=== PATIENT | female | born 1945 | race Caucasian/White ===

== ENCOUNTER 2019-08-24 14:06 | Outpatient (CLI) | payer MEDICARE, OTHER, SELFPAY ==
[2019-08-24 14:44] LABS: Immunofixation, Serum NR
[2019-08-24 15:18] LABS: Alanine Aminotransferase 7 U/L (0-33); Albumin Level 3.7 g/dL (3.5-5.2); Alkaline Phosphatase 138 IU/L (35-105); Anion Gap 17.7 (5-19); Aspartate Amino Transferase 12 U/L (0-32); Blood Urea Nitrogen 37 mg/dL (8-23); Calcium 9.2 mg/Dl (8.8-10.2); Carbon Dioxide 21 mmol/L (22-29); Chloride 105 mmol/L (98-107); Globulin 3.9 g/dL (1.3-4.6); Glucose 106 mg/dL (74-106); Lactate Dehydrogenase 170 U/L (135-214); Potassium 3.7 mmol/L (3.5-5.1); Sodium 140 mmol/L (136-145); Total Bilirubin 0.3 mg/dL (0.15-1.2); Total Protein 7.6 g/dL (6.6-8.7)
[2019-08-24 15:46] LABS: Basophils # 0.1 10^3/uL (0.0-0.1); Basophils % 0.9 %; Eosinophils # 0.1 10^3/uL (0.0-0.8); Eosinophils % 1.8 %; Hematocrit 33.8 % (37.0-47.0); Hemoglobin 9.3 g/dL (11.5-15.3); Lymphocytes # 0.9 10^3/uL (0.8-4.8); Lymphocytes % 14.1 %; Mean Corpuscular HGB Conc 27.5 g/dL (30.0-36.0); Mean Corpuscular Hemoglobin 25.4 pg (28.0-34.0); Mean Corpuscular Volume 92.3 fL (81-99); Mean Platelet Volume 10.5 fL (7.4-10.4); Monocytes # 0.5 10^3/uL (0.2-0.9); Monocytes % 6.9 %; Neutrophils # 5.1 10^3/uL (1.8-7.7); Neutrophils % 75.9 %; Nucleated Red Blood Cells % 0 %; Platelet Count 236 10^3/cmm (130-400); Red Blood Count 3.66 10^6/uL (4.1-5.3); Red Cell Distribution Width 17.1 % (12.1-15.1); White Blood Count 6.7 10^3/uL (4.0-10.0)
[2019-08-24 17:22] LABS: Erythrocyte Sedimentation Rate 82 mm/hr (0-15)
[2019-08-24 22:40] LABS: Vitamin B12 296 pg/mL (232-1245)
[2019-08-25 15:12] LABS: ALBUMIN 3.2 g/dL (3.8-4.8); ALPHA 1 GLOBULIN 0.5 g/dL (0.2-0.3); BETA 1 GLOBULIN 0.4 g/dL (0.4-0.6); BETA 2 GLOBULIN 0.5 g/dL (0.2-0.5); GAMMA GLOBULIN 1.4 g/dL (0.8-1.7)
--- NOTE | 2019-08-28 17:03 | ONC FU_ITS ---
Dr. Hansen Patient Follow-Up Note Patient: Krystal Andrews Unit #: [id number]: [id number] Dicatated By: Brenden Hansen M.D.Date of Visit:Aug 24, 2019 Onc Med Follow-up/Prog Note Chief Complaint: Anemia. History of Present Illness: This is a 74 year-old woman with moderately severe anemia. She has been chronically anemic, dating back to at least September 2007, at which time her hemoglobin was 10.4 g. In August 2016 she underwent repair of an incarcerated umbilical hernia. With that episode her hemoglobin had dropped to as low as 8.0 g, but she did not require transfusion. The red cell indices were hypochromic/microcytic. It was not further evaluated at the time. Her laboratory studies with Dr. Rincon on 03/12/2018 included CBC showing hemoglobin 9.3 g with hematocrit 32.7%. The red cell indices were in the lower range of normal. White blood cell count was 5800 and platelet count was 224,000. The uncorrected reticulocyte count was 3.51%. The sedimentation rate was moderately elevated at 68 mm/hour. The serum iron studies show transferrin saturation mildly decreased at 17% with ferritin normal at 204 ng/mL. B12 level was in the low-normal range at 300 pg/mL with normal folate at 8.2 ng/mL. I had seen her for a follow-up visit on 03/25/2018. Her hemoglobin was 9.6 g. She significantly elevated sedimentation rate at 83 mm/hour. The transferrin saturation was 11.2%, consistent with iron deficiency. She was given parenteral iron replacement with infusions of Injectafer on 04/15/2018 and 04/22/2018.As of her follow-up visit here on 06/01/2018 her hemoglobin was stable at 9.[address] abdomen/pelvis on 04/14/2018 showed a large left hepatic lobe lesion measuring 14.1 x 13.0 x 14.1 cm. It was unchanged compared to previous study from 2017. During subsequent follow-up she had remained moderately anemic with hemoglobin in the range of 9 g. She has a history of an unprovoked pulmonary embolism back in 2007. She had been chronically anticoagulated with warfarin, and I had originally seen her in May 2015 in regard to recommendations for anticoagulation. Her other medical illnesses include hypertension, hyperlipidemia, peptic ulcer disease/GERD, and degenerative arthritis. She is a nonsmoker. INTERIM HISTORY: On 11/14/2018 she underwent laparoscopic cholecystectomy for acute cholecystitis. The procedure also included liver biopsies. Pathology showed benign, reactive hepatic parenchyma with no evidence of malignant neoplasm. As of 02/08/2019 her hemoglobin had dropped to 8.9 g. The red cell indices were borderline low. The serum iron studies show transferrin saturation 12.1%, consistent with iron deficiency. She was given further parenteral iron replacement with 2 additional infusions of Injectafer. During followup she remained moderately anemic. Her bone marrow aspiration/biopsy on 04/08/2019 showed normal cellular bone marrow for age, estimated at 20 to 40%. There were no overt dyspoietic or megaloblastic changes. Iron stores were adequate to mildly increased. The standard cytogenetic study was normal, and a FISH panel for MDS was unrevealing. She is seen for a follow-up visit. Her ECOG score is 1. She has good appetite. She has no fever or night sweats. She does not complain of shortness of breath, cough, or chest pain. She has no GI or complaints. She has joint pain, mainly in her hands and feet, and she sometimes has numbness/tingling in her feet. She complains that she feels weak and that she has no energy. She is still doing light work at home. Her appetite is variable. She has lost weight. She has no fever or night sweats. She has occasional cough. She does not complain of shortness of breath or chest pain. She reports having nausea at times. She has some constipation, but it is managed adequately with MiraLAX. She has some mild stress incontinence. She complains that she has had a crick in her neck and she says she has a bad disc in her back. She has pain in her left hip which radiates down her left leg, and she has pain in both knees. She also complains that her feet swell. She has no focal neurologic symptoms. Medications: Aspirin 1 Tablet (of 325 mg) Oral daily, dilTIAZem HCl ER 1 Capsule (of 240 mg) Capsule SR 24 HR Oral daily, hydroCHLOROthiazide 1 Tablet (of 25 mg) Oral daily, Levothyroxine Sodium 1 Tablet (of 200 mcg) Oral daily, Lisinopril 1 Tablet (of 40 mg) Oral daily, Lovastatin 1 Tablet (of 20 mg) Oral daily, Metoprolol Succinate ER 1 Tablet (of 100 mg) Tablet SR 24 HR Oral daily, Pantoprazole Sodium 1 Tablet (of 40 mg) Tablet, enteric coated Oral daily Allergies: Penicillin V Potassium Review of Systems: Constitutional - Her energy is pretty good. She does light work at home. Her appetite is pretty good and her weight is down about 10 pounds. No fever, chills, hot flashes, or night sweats. ECOG score is 1, ENMT - No sinus congestion/drainage. No mouth sores. No sore throat or difficulty swallowing, Hematologic/Lymphatic - She bruises easily, Respiratory - No shortness of breath. She has an occasional cough that produces clear phlegm. No pleuritic pain or hemoptysis, Cardiovascular - No angina pain. No palpitations, Gastrointestinal - She has occasional nausea. No vomiting. No heartburn or acid reflux. She sometimes has constipation. No blood in the stool or black stools, Genitourinary (F) - No dysuria or hematuria. No urinary frequency. No urgency. She has urinary leakage at times if she sneezes or coughs, Musculoskeletal - She has pain in her neck, both knees, lower back and hips. She sometimes has pain down her legs if her lower back is hurting, Integumentary - No skin complications, Neurologic - She has a headache today, but she normally does not have any issues with them. No dizziness. No numbness/paresthesias or other focal neurologic symptoms, Psychiatric - No anxiety or depression. No insomnia. Vital Signs: Performed on Aug 24, 2019 15:54 Height - 68.00 in Weight - 264.4 lbs (LOW) BSA - 2.30 sq.m BMI - 40.20 (HIGH) Temperature - 98.0 F (LOW) Pulse - 119 /min (HIGH) Respiration - 24 /min BP - 155/96 mm(hg) (HIGH) O2 Sat - 96 % Pain - 3 Physical Examination: Constitutional - She appears somewhat weak generally, Eyes - Sclerae nonicteric. Conjunctivae clear, ENMT - No lesions noted in the oral cavity, Hematologic/Lymphatic - No cervical, clavicular, or axillary adenopathy, Respiratory - Lungs are clear, Cardiovascular - Heart rhythm is regular with a mild tachycardia. There is a II/ systolic murmur. There is no gallop or rub noted, Abdomen - Soft. Liver and spleen are not enlarged. There is no abdominal mass or ascites noted and there is no inguinal adenopathy, Extremities - Mild lower extremity edema. There is some swelling of the left index finger, Neurologic - No focal neurologic deficits noted. Lab/Imaging: Test performed on Aug 24, 2019 14:27 Vitamin B12 296 pg/mL Glucose 106 mg/dL LDH, Total 170 IU/L Protein, Total 7.0 g/dL Albumin, SPE 3.2 g/dL BUN 37 mg/dL Creatinine 1.8 mg/dL Cr Clearance (Est) 51.1300 mL/min Sodium 140 mmol/L Potassium 3.7 mmol/L Chloride 105 mmol/L CO2 21 mmol/L Calcium 9.2 mg/dL Albumin 3.7 g/dL Bilirubin, Total 0.3 mg/dL Alkaline Phosphatase 138 IU/L AST (SGOT) 12 IU/L ALT (SGPT) 7 IU/L Sed Rate 82 mm/hr WBC 6.7 10^9/L RBC 3.66 10^12/L HGB 9.3 g/dL HCT 33.8 % MCV 92.3 fl MCH 25.4 pg MCHC 27.5 g/dL RDW 17.1 % Platelet Count 236 10^9/L MPV 10.5 fL Neutrophils (Gran) 5.1 10^9/L Lymphocytes 0.9 10^9/L Monocytes 0.5 10^9/L Eosinophils 0.1 10^9/L Basophils 0.1 10^9/L Manual Lymphocytes 14.1 % Manual Monocytes 6.9 % Manual Eosinophils 1.8 % Manual Basophils 0.9 % NRBCs 0.0 /100 WBC Zqxvi-4-rrcaeclb 0.5 g/dL Weexf-1-bhslmssy 1.0 g/dL SPE Interpretation Hypoalbuminemia with an increase in ynsva-1-qmtsikpwn, xzxuf-1-lyjmludyg, or both, is consistent with an acute phase response. No restricted band (M-spike) seen. Impression: 1. Patient with moderately severe anemia. Etiology is uncertain, but her serum iron studies have been consistent with iron deficiency. 2. She was given parenteral iron replacement with Injectafer in April 2018, but with no significant improvement in her hemoglobin/hematocrit levels. 3. Her CT abdomen/pelvis in April 2018 showed a large left hepatic lobe lesion, but it was stable compared to prior studies. 3. She has a history of unprovoked pulmonary embolism. She has been followed off anticoagulation with no evidence of recurrent thromboembolism. Her other medical illnesses include: 4. Hypertension. 5. Hyperlipidemia. 6. Hypothyroidism. 7. GERD/peptic ulcer disease. 8. Degenerative arthritis. 9. She has a history of colonic polyps with negative follow-up colonoscopy in 2015. In November 2018 she underwent cholecystectomy for acute cholecystitis. The procedure also included liver biopsies, which showed benign, reactive hepatic parenchyma and no evidence of a neoplastic process. As of February 2019 she had remained moderately anemic with hypochromic/microcytic red cell indices. The serum iron studies were again consistent with iron deficiency. She was given further parenteral iron replacement with 2 additional infusions of Injectafer. She has had only a slight increase in her hemoglobin/hematocrit levels. Her bone marrow aspiration/biopsy on 04/08/2019 showed no diagnostic abnormalities. The iron stores were noted to be adequate to mildly increased. During subsequent follow-up, she has remained moderately anemic. Her B12 level has been in the low normal range. Plan: I will recheck methylmalonic acid and homocystine levels and she will begin B12 replacement therapy if those are elevated. Otherwise she will continue on observation/expectant management. Signed By: Brenden Hansen M.D. <<Signature on File>>
== END 2019-08-24 14:07 | disposition home or self-care (01) ==
LOC: ONCMED 14:16
PROVIDERS: Family Provider Electrodiagnostic Medicine; PCP Electrodiagnostic Medicine; Visit Provider Internal Medicine Medical Oncology
DX: D50.9 Iron deficiency anemia, unspecified (principal); I10 Essential (primary) hypertension; E78.5 Hyperlipidemia, unspecified; E03.9 Hypothyroidism, unspecified; K21.9 Gastro-esophageal reflux disease without esophagitis; M19.90 Unspecified osteoarthritis, unspecified site; Z87.11 Personal history of peptic ulcer disease; Z86.711 Personal history of pulmonary embolism; Z90.49 Acquired absence of other specified parts of digestive tract
CPT/HCPCS: 80053; 82607; 83615; 84155; 84165; 85025; 85651; 99214

== ENCOUNTER 2019-09-01 12:10 | Outpatient (CLI) | payer MEDICARE, SELFPAY ==
[2019-09-01 19:08] LABS: Vitamin B12 276 pg/mL (232-1245)
[2019-09-01 21:30] LABS: Homocysteine 31.23
[2019-09-07 11:17] LABS: Methylmalonic Acid 376 nmol/L (87-318)
== END 2019-09-01 12:11 | disposition home or self-care (01) ==
LOC: ONCMED 15:00
PROVIDERS: Family Provider Electrodiagnostic Medicine; PCP Electrodiagnostic Medicine; Visit Provider Internal Medicine Medical Oncology
DX: D50.8 Other iron deficiency anemias (principal); Z86.711 Personal history of pulmonary embolism
CPT/HCPCS: 82607; 83090; 83921

== ENCOUNTER 2019-09-21 10:45 | Inpatient (IN) | payer MEDICARE, OTHER, SELFPAY ==
[2019-09-21] VITALS (26 sets, daily range): BP systolic 113–181; BP diastolic 76–111; PULSE 70–121; RESP 8–32; TEMP 36.3–36.6; O2SAT 92–96; BMI 34.4
--- NOTE | 2019-09-21 11:05 | ED_ITS ---
Entered by Sirisha Stark, acting as scribe for Lisa White MD HPI - Neuro Symptoms/Deficit General: Chief Complaint: Neuro Symptoms/Deficit Stated Complaint: POSS MINI STROKE Time Seen by Provider: 09/21/19 11:06 Source: patient, family and RN notes reviewed Mode of arrival: ambulatory Limitations: no limitations History of Present Illness: HPI Narrative: 74 yo female presents to ED with complaints of confusion. The patient states she felt off last night at about 1800 and began to have a severe frontal headache, so she just went to bed. She woke this morning more confused, still with a constant severe headache. The bdmsdgoc-zc-wlc states the patient went to fix something to eat last night but was unable to finish the task due to her confusion. The nourmbcv-yx-jot said the patient is not normally like this - confusted. Onset (ago): day(s) (last night) Time: 18:00 Last Observed Normal: 18:00 Timing confirmed by: other (patient) Location: altered and other (headache) History of same: No Severity: mild Quality: constant (confusion, headache) Relieving factors: none Exacerbating factors: none Context: sudden onset On Anticoagulants: Yes (baby aspirin) Associated symptoms: Reports headache(s); Deny chest pain, nausea or vomiting Treatments Prior to Arrival: none Review of Systems General: Reports: other (WDWN non toxic appearing) Const: Denies: fever or chills Eyes: Denies: change in vision ENMT: Denies: throat pain or nasal congestion Card: Denies: chest pain Resp: Denies: shortness of breath GI: Denies: abdominal pain, nausea, vomiting or change in bowel habits : Denies: difficulty urinating Musc: Denies: muscle weakness Skin/Breast: Denies: rash Neuro: Reports: headache, lack of coordination and confusion Psych: Denies: suicidal ideation Endo: Denies: heat intolerance Liam/Lymph: Reports: easy bruising and easy bleeding All/Imm: Denies: hives PFSH ED PFSH: Statuses (acute, chronic, etc) shown below reflect problem list status as previously entered and may not be historically accurate Social History Smoking and tobacco status: never smoked NIH stroke score NIHSS: Level Of Consciousness - 1a: 0 Best Gaze - 2: Normal Visual Sal - 3: No Visual Loss Facial Palsy - 4: Normal Motor Arm Right - 5: No Drift Motor Arm Left - 5: No Drift Motor Leg Right - 6: No Drift Motor Leg Left - 6: No Drift Limb Ataxia - 7: Absent Sensory - 8: Normal Best Language - 9: No Aphasia Dysarthia - 10: Mild/Moderate Dysarthia Physical Exam Const: COMMON NORMALS: no apparent distress, average body habitus, oriented x3, no limitations, healthy appearing, alert and well nourished EXAM LIMITATIONS: no altered mental status ORIENTATION/CONSCIOUSNESS: Yes oriented to person, Yes oriented to place and Yes oriented to time Eye: COMMON NORMALS: PERRL, EOMs intact bilaterally, conjunctivae normal and normal visual sal by confrontation GENERAL EYE: normal appearance of both eyes VISUAL SAL: No peripheral vision loss CONJUNCTIVA: Yes conjunctivae normal PUPIL: Yes PERRL Neck/C-Spine: COMMON NORMALS: full ROM, no lymphadenopathy, supple, no meningeal signs, thyroid normal and no carotid bruits THYROID: thyroid normal Lymph: LYMPHATIC: no lymphadenopathy noted Chest: COMMONS NORMALS: inspection of chest normal Resp: COMMON NORMALS: normal respiratory effort, no retractions, no use of accessory muscles, clear to auscultation bilaterally and percussion normal AUSCULTATION: clear to auscultation bilaterally PERCUSSION: percussion normal Cardio: RATE: tachycardic GI: COMMON NORMALS: normal to inspection, nondistended, normoactive bowel sounds, soft to palpation, non-tender, no hepatosplenomegaly, no masses and no bruits PALPATION: Yes soft and Yes no hepatosplenomegaly Back/Pelvis: OTHER: normal rom Extremity: COMMON NORMALS: full ROM, normal capillary refill and no calf tenderness NARRATIVE EXTREMITY EXAM: 1 plus edeme bilaterally Neuro: BELKYS COMA SCALE: other (GCS 15) COMMON NORMALS: oriented x3 and moves all extremities SENSORIUM/ORIENTATION: Yes alert, Yes oriented to person, Yes oriented to place, Yes oriented to time and No somnolent MENINGEAL SIGNS: Yes no meningeal signs and No nuccal rigidity CRANIAL NERVES: Yes CN normal except as noted COORDINATION/BALANCE: aqpjlm-td-ufdr test normal (unable to follow directions for finger to nose very well) SPEECH: speech normal and no expressive aphasia COORDINATION: dierdb-dk-sano test normal (unable to follow directions for finger to nose very well) Psych: COMMON NORMALS: mental status grossly normal, thought process normal, cooperative, affect normal, speech normal, activity/motor behavior normal, denies hallucinations, denies homicidal ideation and denies suicidal ideation SPEECH: Yes normal speech THOUGHT PROCESS: normal thought process Skin: COMMON NORMALS: no rashes or lesions noted, no wounds, skin turgor normal, no jaundice, no petechiae and no mottling GENERAL SKIN EXAM: no rashes or lesions noted and turgor normal Course Vital Signs: Vital signs: Vital Signs Temperature 97.4 F L 09/21/19 10:49 Pulse Rate 117 H 09/21/19 13:14 Respiratory Rate 22 H 09/21/19 13:14 Blood Pressure 132/98 09/21/19 13:14 Pulse Oximetry 94 09/21/19 13:14 MDM - Neuro Symptoms/Deficit MDM Narrative: Medical decision making narrative: NIH score 1 for intermittent dysarthria which was very mild and I would not have noticed unless family pointed this out. [address] Sánchez will admit to cardiac stepdown unit. Cardizem drip IV ordered and started in the emergency department. After several rounds of metoprolol IV and Cardizem IV heart rate still remains about 115. Patient's neurologic status is improved. She is alert and oriented family has not noticed any problems with her speech since she has been here. Headache is improved with Tylenol. Will need her heart rate under better control and need to determine if she needs additional anticoagulation with her chronic anemia that she sees Dr. Hansen for. Lab Data: Attestation: I reviewed the patient's lab results. Labs: Lab Results 09/21/19 09/21/19 09/21/19 Range/Units 11:40 11:40 11:40 WBC 6.7 (4.0-10.0) 10^3/ uL RBC 3.86 L (4.1-5.3) 10^6/u L Hgb 9.4 L (11.5-15.3) g/dL Hct 33.3 L (37.0-47.0) % MCV 86.3 (81-99) fL MCH 24.4 L (28.0-34.0) pg MCHC 28.2 L (30.0-36.0) g/dL RDW 17.2 H (12.1-15.1) % Plt Count 218 (130-400) 10^3/c mm MPV 9.8 (7.4-10.4) fL Neut % (Auto) 81.5 % Lymph % (Auto) 10.3 % [place] % (Auto) 6.3 % Eos % (Auto) 0.9 % Baso % (Auto) 0.7 % Neut # (Auto) 5.5 (1.8-7.7) 10^3/u L Lymph # (Auto) 0.7 L (0.8-4.8) 10^3/u L [place] # (Auto) 0.4 (0.2-0.9) 10^3/u L Eos # (Auto) 0.1 (0.0-0.8) 10^3/u L Baso # (Auto) 0.1 (0.0-0.1) 10^3/u L Nucleated RBC % (a uto) 0 % Nucleated RBCs # 0.0 /100WBC PT 15.50 H (10.5-13.3) SECO NDS INR 1.19 (0.8-1.2) APTT 30.2 (23.9-36.7) SECO NDS Sodium 144 (136-145) mmol/L Potassium 4.0 (3.5-5.1) mmol/L Chloride 106 (98-107) mmol/L Carbon Dioxide 22 (22-29) mmol/L Anion Gap 20.0 H (5-19) BUN 33 H (8-23) mg/dL Creatinine 1.4 H (0.5-0.9) mg/dL Glucose 121 H (65-115) mg/dL Calcium 9.9 (8.5-10.5) mg/dL Total Bilirubin 0.5 (0.15-1.2) mg/dL AST 12 (0-32) U/L ALT 6 (0-33) U/L Alkaline Phosphata se 130 H (35-105) IU/L Total Protein 8.2 (6.6-8.7) g/dL Albumin 3.5 (3.5-5.2) g/dL Globulin 4.7 H (1.3-4.6) g/dL Urine Color (Yellow) Urine Appearance (CLEAR) Urine pH (5-7) Ur Specific Gravit y (1.005-1.030) Urine Protein (Negative) Urine Glucose (UA) (Normal) Urine Ketones (Negative) Urine Occult Blood (Negative) Urine Nitrate (Negative) Urine Bilirubin (NEGATIVE) Urine Urobilinogen (Negative) mg/dL Ur Leukocyte Jess ase (Negative) 09/21/19 Range/Units 12:50 WBC (4.0-10.0) 10^3/ uL RBC (4.1-5.3) 10^6/u L Hgb (11.5-15.3) g/dL Hct (37.0-47.0) % MCV (81-99) fL MCH (28.0-34.0) pg MCHC (30.0-36.0) g/dL RDW (12.1-15.1) % Plt Count (130-400) 10^3/c mm MPV (7.4-10.4) fL Neut % (Auto) % Lymph % (Auto) % [place] % (Auto) % Eos % (Auto) % Baso % (Auto) % Neut # (Auto) (1.8-7.7) 10^3/u L Lymph # (Auto) (0.8-4.8) 10^3/u L [place] # (Auto) (0.2-0.9) 10^3/u L Eos # (Auto) (0.0-0.8) 10^3/u L Baso # (Auto) (0.0-0.1) 10^3/u L Nucleated RBC % (a uto) % Nucleated RBCs # /100WBC PT (10.5-13.3) SECO NDS INR (0.8-1.2) APTT (23.9-36.7) SECO NDS Sodium (136-145) mmol/L Potassium (3.5-5.1) mmol/L Chloride (98-107) mmol/L Carbon Dioxide (22-29) mmol/L Anion Gap (5-19) BUN (8-23) mg/dL Creatinine (0.5-0.9) mg/dL Glucose (65-115) mg/dL Calcium (8.5-10.5) mg/dL Total Bilirubin (0.15-1.2) mg/dL AST (0-32) U/L ALT (0-33) U/L Alkaline Phosphata se (35-105) IU/L Total Protein (6.6-8.7) g/dL Albumin (3.5-5.2) g/dL Globulin (1.3-4.6) g/dL Urine Color Yellow (Yellow) Urine Appearance Clear (CLEAR) Urine pH 5.0 (5-7) Ur Specific Gravit y 1.015 (1.005-1.030) Urine Protein Neg (Negative) Urine Glucose (UA) Norm (Normal) Urine Ketones Negative (Negative) Urine Occult Blood Neg (Negative) Urine Nitrate Negative (Negative) Urine Bilirubin Neg (NEGATIVE) Urine Urobilinogen Norm (Negative) mg/dL Ur Leukocyte Jess ase Negative (Negative) Imaging Data^: CXR: Radiologist's impression: [place] [address] XRay Report Signed Patient: Krystal Andrews #: [id number] : 4At#:[id number] Age/Sex: 74 / FADM Date: 09/21/19 [facility] Attending Dr: Ordering Provider/Ordering MD: Lisa White MD Date of Service: 09/21/19 Procedure(s): XR chest 1V portable [id number] Accession Number(s): [id number] Report Number: [id number] WS: [id number] Portable AP upright chest, 09/21/2019 Clinical Data: stroke Comparison: Portable chest, 06/27/2019. Findings: No nodules, masses or effusions are seen. The heart is enlarged. The pulmonary vascularity is not increased. No pneumonia or pneumothorax is seen. The aortic arch and descending aorta show calcification and tortuosity. XR/XR chest 1V portable [id number] Impression: Atherosclerosis and cardiomegaly. Dictated By:Renita Ross MD Signed By:Renita Ross Date/Time:09/21/19 1133 DD/ EKG Data^: EKG 1: Attestation: I personally reviewed and interpreted this EKG as follows: EKG interpretation date: 09/21/19 EKG interpretation time: 11:40 Prior EKG tracings: available for review Ischemic changes: other Interpretation: A flutter rate 117 with right bundle branch block. This is unchanged from EKG 06/27/2019 at that time her rate was approximately 119 Critical Care Time Critical Care Time: Critical Care Time: Yes Total Critical Care Time: 30 Attestation: This case had a high probability of a clinically significant, sudden, or life threatening deterioration of this patient's condition which required my full and direct attention, intervention and personal management. 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
--- NOTE | 2019-09-21 11:19 | ECG_ITS ---
Measurements Intervals [place] Rate: 117 P: GA: 0 QRS: 50 QRSD: 136 T: 38 QT: 363 QTc: 508 ATRIAL FLUTTER/TACHYCARDIA WITH RAPID VENTRICULAR RESPONSE RIGHT BUNDLE BRANCH BLOCK [120+ ms QRS DURATION, UPRIGHT V1, 40+ ms S IN I/aVL/V4/V5/V6] MARKED ST ELEVATION, CONSIDER INFERIOR INJURY [MARKED ST ELEVATION W/O NORMALLY INFLECTED T WAVE IN II/aVF] ACUTE DC Compared to ECG 06/27/2019 05:47:55 ST (T wave) deviation now present Myocardial infarct finding now present Sinus tachycardia no longer present Electronically Signed On 09-21-2019 19:58:47 [employer]ED [employer] by Cisco Armendariz M.D. [email or web address]
--- NOTE | 2019-09-21 11:19 | CT_ITS ---
WS: [id number] CT HEAD TECHNIQUE: Noncontrast CT of the head obtained from the skullbase to the vertex. CLINICAL INFORMATION: Symptoms of Acute Stroke COMPARISON: None. DLP: 790.[address] scans at [facility] use at least one of these dose optimization techniques: automat ed exposure control; mA and/or kV adjustment per patient size (includes targeted exams where dose is matched to clinical indication); or iterative reconstruction. FINDINGS: No evidence of intracranial hemorrhage or mass effect. Ventricular system and basal cisterns are ortiz nt. Mild small vessel changes with moderate parenchymal volume loss. Chronic lacunar infarct left cau date. No extra-axial fluid collections. No evidence of mass or mass effect. Normal hernandez-white differe ntiation. Intracranial vascular calcification. Paranasal sinuses and mastoid air cells are well aerated. .Normal visualized soft tissues. Notified Lisa White MD at 09/21/2019 12:[address]/CT head wo con* [id number] IMPRESSION: 1. No evidence of intracranial hemorrhage or mass effect. 2. Mild small vessel changes moderate parenchymal volume loss. 3. Chronic lacunar infarct left caudate. 4. No acute intracranial findings.
--- NOTE | 2019-09-21 11:19 | XR_ITS ---
WS: [id number] Portable AP upright chest, 09/21/2019 Clinical Data: stroke Comparison: Portable chest, 06/27/2019. Findings: No nodules, masses or effusions are seen. The heart is enlarged. The pulmonary vascularity is not increased. No pneumonia or pneumothorax is seen. The aortic arch and descending aorta show belkis cification and tortuosity. XR/XR chest 1V portable [id number] Impression: Atherosclerosis and cardiomegaly.
[2019-09-21] MEDS: acetaminophen 325 mg Tablet 650 MG PO (11:29)
[2019-09-21] MEDS: sodium chloride 0.9% 500 ML IV (11:44)
[2019-09-21 11:47] LABS: Basophils # 0.1 10^3/uL (0.0-0.1); Basophils % 0.7 %; Eosinophils # 0.1 10^3/uL (0.0-0.8); Eosinophils % 0.9 %; Hematocrit 33.3 % (37.0-47.0); Hemoglobin 9.4 g/dL (11.5-15.3); Lymphocytes # 0.7 10^3/uL (0.8-4.8); Lymphocytes % 10.3 %; Mean Corpuscular HGB Conc 28.2 g/dL (30.0-36.0); Mean Corpuscular Hemoglobin 24.4 pg (28.0-34.0); Mean Corpuscular Volume 86.3 fL (81-99); Mean Platelet Volume 9.8 fL (7.4-10.4); Monocytes # 0.4 10^3/uL (0.2-0.9); Monocytes % 6.3 %; Neutrophils # 5.5 10^3/uL (1.8-7.7); Neutrophils % 81.5 %; Nucleated Red Blood Cells % 0 %; Platelet Count 218 10^3/cmm (130-400); Red Blood Count 3.86 10^6/uL (4.1-5.3); Red Cell Distribution Width 17.2 % (12.1-15.1); White Blood Count 6.7 10^3/uL (4.0-10.0)
[2019-09-21 11:59] LABS: INR 1.19 (0.8-1.2)
[2019-09-21 12:02] LABS: Alanine Aminotransferase 6 U/L (0-33); Albumin Level 3.5 g/dL (3.5-5.2); Alkaline Phosphatase 130 IU/L (35-105); Aspartate Amino Transferase 12 U/L (0-32); Blood Urea Nitrogen 33 mg/dL (8-23); Calcium 9.9 mg/dL (8.5-10.5); Carbon Dioxide 22 mmol/L (22-29); Chloride 106 mmol/L (98-107); Globulin 4.7 g/dL (1.3-4.6); Glucose 121 mg/dL (65-115); Sodium 144 mmol/L (136-145); Total Bilirubin 0.5 mg/dL (0.15-1.2); Total Protein 8.2 g/dL (6.6-8.7)
[2019-09-21 12:03] LABS: Partial Thromboplastin Time 30.2 SECONDS (23.9-36.7)
[2019-09-21 13:00] LABS: Add Urine Microscopic? NO
[2019-09-21 13:18] LABS: Bilirubin Urine Neg (NEGATIVE); Blood Urine Neg (Negative); Glucose Urine UA Norm (Normal); Ketones Urine Negative (Negative); Leukocyte Esterase Urine Negative (Negative); Nitrate Urine Negative (Negative); Protein Urine Neg (Negative); Specific Gravity, Urine 1.015 (1.005-1.030); Urine Appearance Clear (CLEAR); Urine Color Yellow (Yellow); Urobilinogen Urine Norm (Negative)
[2019-09-21] MEDS: metoprolol tartrate 1 mg/1 mL SDV 5 mL 5 MG IV ×2 (13:41→13:58)
[2019-09-21 15:13] LABS: Troponin(5th) Baseline 61 ng/mL (0-10)
[2019-09-21 15:59] LABS: Alveolar-Arterial Oxygen Gradi 37.7 mmHg (5-10); Arterial Blood Gas Hematocrit 29.8 % (37-47); Blood Gas Allen Test Pos; Blood Gas Sample Site Brachial, left; Blood Gas Sample Type Arterial; Carboxyhemoglobin 1.2 %THgb (0.4-20.1); HGB O2 Sat 94.8 % (95-100); Methemoglobin 0.6 % (0.4-1.5); Oxygen Device ROOM AIR; Total Hemoglobin 9.7 g/dL (12-16)
--- NOTE | 2019-09-21 16:25 | ECG_ITS ---
Measurements Intervals [place] Rate: 116 P: 110 MD: 233 QRS: -18 QRSD: 133 T: -6 QT: 352 QTc: 490 Possible atrial flutter with 2-1 block RIGHT BUNDLE BRANCH BLOCK [120+ ms QRS DURATION, UPRIGHT V1, 40+ ms S IN I/aVL/V4/V5/V6] POSSIBLE ANTERIOR MYOCARDIAL INFARCTION [30 ms Q WAVE IN V3/V4, OR R < 0.2 mV IN V4], OF INDETERMINATE AGE INFERIOR MYOCARDIAL INFARCTION [40+ ms Q WAVE AND/OR ST/T ABNORMALITY IN II/aVF], OF INDETERMINATE AGE MODERATE T-WAVE ABNORMALITY, CONSIDER LATERAL ISCHEMIA [-0.1+ mV T WAVE IN I/aVL/V5/V6] Compared to ECG 06/27/2019 05:47:55 First degree AV block now present Myocardial infarct finding now present T-wave abnormality now present Possible ischemia now present Electronically Signed On 09-21-2019 20:14:31 WARP STARTER by Cisco Armendariz M.D. [id number]
--- NOTE | 2019-09-21 16:28 | PM.HP ---
Providers/Chief Complaint Admitting Physician: Artur Sánchez MD Primary Care Provider: Kristian Rincon DO Chief Complaint: POSS MINI STROKE History of Present Illness Krystal Andrews is a 74 year old female who presents to the emergency department with concerns of confusion. She reports last night she had some slurred speech, and had difficulty remembering things. She was not for sure how the stove worked, or how to shut it off. She reported this morning symptoms were still present, and her children had her come to the emergency department. She reports a headache, but no nausea. She reports while being in the emergency department she has improved. She reports she still has a slight headache but the slurred speech is better. She is able to talk easier without as much difficulty in her word finding abilities. She denies any recent fever. She has had no neck pain. She denies any cough. She reports she is followed for anemia by Dr. Hansen but has had no blood in her stool or black or tarry stools. While in the emergency department the ER physician noted a normal CT scan. Her NIH stroke scale was 1-2, and improving. Therefore she was not a candidate for any TPA. It was also noted that her underlying cardiac rhythm was atrial fibrillation/flutter. Review of Systems General: Reports: 10 or more systems reviewed and unremarkable except in HPI and below Const: Denies: fever or chills Eyes: Denies: blurry vision or blind spots ENMT: Denies: throat pain Card: Denies: chest pain, palpitations or swelling of feet/ankles Resp: Denies: shortness of breath GI: Denies: abdominal pain : Denies: difficulty urinating Musc: Denies: neck pain Neuro: Reports: headache Psych: Denies: anxiety Endo: Denies: excessive urination Liam/Lymph: Denies: easy bleeding All/Imm: Denies: hives Medications/Allergies Home Medications Medication Instructions Recorded Confirmed Last Taken Type aspirin 81 mg PO DAILY 09/21/19 09/21/19 09/20/19 History diltiazem HCl [DILT-XR] 240 mg PO DAILY 09/21/19 09/21/19 09/21/19 History hydrochlorothiazide 25 mg PO DAILY 09/21/19 09/21/19 09/20/19 History levothyroxine 200 mcg PO DAILY 09/21/19 09/21/1920 History lisinopril 40 mg PO DAILY 09/21/19 09/21/19 09/21/19 History lovastatin 20 mg PO DAILY 09/21/19 09/21/19 09/21/19 History metoprolol succinate 100 mg PO DAILY 09/21/19 09/21/19 09/21/19 History pantoprazole 40 mg PO DAILY 09/21/19 09/21/19 09/20/19 History Allergies Allergy/AdvReac Type Severity Reaction Status Date / Time Penicillins Allergy ALGY-Hives Verified 09/21/19 10:55 PFSH Acute PFSH: Statuses (acute, chronic, etc) shown below reflect problem list status as previously entered and may not be historically accurate Medical History (Updated 09/21/19 @ 16:38 by Artur Sánchez MD) Anemia (Acute) Chronic kidney disease, stage II (mild) (Acute) DJD (degenerative joint disease) (Acute) GERD (gastroesophageal reflux disease) (Acute) Hyperlipidemia (Acute) Hypertension (Acute) Hypothyroidism (Acute) Pulmonary embolism (Acute) Surgical History (Updated 09/21/19 @ 16:32 by Artur Sánchez MD) History of cholecystectomy (Acute) History of hernia repair (Acute) History of tubal ligation (Acute) Family History (Updated 09/21/19 @ 16:33 by Artur Sánchez MD) Other CAD (coronary artery disease) Social History (Updated 09/21/19 @ 16:33 by Artur Sánchez MD) Smoking and tobacco status: never smoked Alcohol intake: never Substance/Drug Use: never Vitals/I&O/Wt Last Vital Signs Temp 98 F 09/21/19 15:44 Pulse 73 09/21/19 15:44 Resp 15 09/21/19 15:44 BP 137/105 09/21/19 15:44 Pulse Ox 93 09/21/19 15:44 09/21/19 09/21/19 09/21/19 06:59 14:59 22:59 Intake Total 316.667 / 316.667 Balance 316.667 / 316.667 Weight last 48 hrs Weight 99.79 kg Physical Exam Narrative: EXAM NARRATIVE: General exam demonstrates an obese white female, in no apparent distress. Neurologic: Some word finding difficulty. However, this appears very minor currently. No significant slurred speech. No obvious other focal abnormalities. HEENT: Pupils equally round. Oropharynx clear Neck is supple no lymphadenopathy or thyromegaly Cardiovascular tachycardic, irregular Lungs clear no wheezing or crackles Abdomen is obese soft nontender with positive bowel sounds. No obvious organomegaly was deferred Extremities no cyanosis clubbing. Trace to 1+ edema. Chronic venous stasis changes Skin no rash Data : 09/21/19 11:40 09/21/19 11:40 Other data: Chest x-ray reviewed demonstrates aortic arch calcification, hiatal hernia EKG demonstrates atrial flutter, left axis deviation, right bundle branch block CT head demonstrates old lacunar infarct left caudate and small vessel disease. Urinalysis is negative. A&P Assessment and plan (1) CVA (cerebral vascular accident): Receptive aphasia, slurred speech, confusion all consistent with CVA. With atrial flutter noted this is likely to be embolic. We will check CTA head and neck Echocardiogram Aspirin, statin high-dose, Lovenox for full dose anticoagulation Status: Acute Code(s): I63.9 - Cerebral infarction, unspecified (2) Atrial fibrillation and flutter: Initiate Lovenox Keep patient on low-dose of her metoprolol, trying to allow for permissive hypertension Digoxin IV x1 secondary to atrial fibrillation Reassess in the morning Await echocardiogram Status: Acute Code(s): I48.91 - Unspecified atrial fibrillation; I48.92 - Unspecified atrial flutter (3) Elevated troponin: Likely type II Status: Acute Code(s): R79.89 - Other specified abnormal findings of blood chemistry (4) Hypertension: Allow permissive hypertension but continue lower dose metoprolol to try to prevent significant withdrawal Status: Acute Code(s): I10 - Essential (primary) hypertension (5) Hyperlipidemia: Change to high-dose statin Status: Acute Code(s): E78.5 - Hyperlipidemia, unspecified Additional A&P Information Lovenox full dose anticoagulation will serve for DVT prophylaxis as well Observation for now. Symptoms may fall into a TIA category. Will determine if discharge is appropriate tomorrow. CSU/telemetry observation Attestations Medical Necessity Statement*: Will need less than 2 midnights of hospital stay for evaluation of strokelike symptoms. Time Spent in Patient Care: Greater than 35 minutes Coding Level of Care Code Acute Weatherization And Housing Inspector for Chg Fwd Diagnoses CVA (cerebral vascular accident) I63.9 Atrial fibrillation and flutter I48.91; I48.92 Elevated troponin R79.89 Hypertension I10 Hyperlipidemia E78.5
--- NOTE | 2019-09-21 16:49 | USCV_ITS ---
Krystal Andrews Age: 74 Gender: F : 1945 Exam Date: 09/21/2019 17:46 Ordering Phys: Artur Sánchez MD Technologist: Lauren Bolivar Exam Location: [facility] [place] Indication: CVA BP: 127 / 90 HR: 116 Rhythm: Sinus Technical Quality: Adequate MEASUREMENTS (Male / Female) Normal Values 2D ECHO LV Diastolic Diameter PLAX 3.5 cm 4.2 - 5.9 / 3.9 - 5.3 cm LV Systolic Diameter PLAX 3.0 cm LV Chamber Size 2.8 cm IVS Diastolic Thickness 1.6 cm 0.6 - 1.0 / 0.6 - 0.9 cm IVS Systolic Thickness 1.8 cm LVPW Diastolic Thickness 2.7 cm 0.6 - 1.0 / 0.6 - 0.9 cm LVPW Systolic Thickness 2.8 cm RV Chamber Size 3.0 cm LVOT Diameter 2.0 cm LV Ejection Fraction 2D Teich 29.9 % LV Ejection Fraction MOD 2C 41.1 % LV Ejection Fraction 2C AL 38.5 % LA Diameter 4.9 cm LA Width 2.8 cm LA Height 4.9 cm RA Width 2.7 cm RA Height 4.7 cm Aorta at Sinotubular Diameter 3.1 cm M-MODE LV Diastolic Diameter MM 5.3 cm 4.2 - 5.9 / 3.9 - 5.3 cm LV Systolic Diameter MM 4.5 cm LV Ejection Fraction MM Teich 33.1 % IVS Diastolic Thickness MM 1.2 cm 0.6 - 1.0 / 0.6 - 0.9 cm IVS Systolic Thickness MM 1.1 cm LVPW Diastolic Thickness MM 0.9 cm 0.6 - 1.0 / 0.6 - 0.9 cm LVPW Systolic Thickness MM 1.6 cm Aortic Annulus Diameter 3.4 cm LA Ao Ratio MM 1.4 MV E Point Septal Separation 0.8 cm DOPPLER AV Peak Velocity 251.0 cm/s LVOT Peak Velocity 105.0 cm/s AV Area Cont Eq vti 1.1 cm squared AV Area Cont Eq pk 1.3 cm squared MV Area PHT 5.9 cm squared Mitral E to A Ratio 2.6 MV E' Velocity 17.0 cm/s Mitral E to MV E' Ratio 7.1 Mitral E to LV E' Lateral Ratio 7.5 Mitral E to LV E' Septal Ratio 6.8 TR Peak Velocity 280.0 cm/s TR Peak Gradient 31.3 mmHg TR Mean Velocity 179.1 cm/s TR Mean Gradient 15.0 mmHg TR Velocity Time Integral 57.5 cm TV Peak E Velocity 70.0 cm/s Right Atrial Pressure 3.0 mmHg Pulmonary Artery Systolic Pressu 34.4 mmHg PV Peak Velocity 87.0 cm/s RV Acceleration Time 0.1 s RV Ejection Time 0.3 s RV AcT/ET 0.5 FINDINGS Left Ventricle Normal left ventricular size and systolic function, 55%.no regional wall motion abnormalities. Right Ventricle Mildly dilated right ventricle with normal ejection fraction Right Atrium Moderately increased right atrial size. Left Atrium Mildly increased left atrial size. Mitral Valve Thickened mitral valve. Aortic Valve Thickened aortic valve. Mild to moderate aortic valve stenosis with a valve area 1.17 cm squared. Peak velocity 2.51m/s with a peak gradient of 25 and a mean gradient of 14 millimeters of mercury Tricuspid Valve Mild tricuspid valve regurgitation. Pulmonic Valve Pulmonic valve not well visualized. Pericardium No pericardial effusion. Aorta Normal aortic annulus size. CONCLUSIONS Normal left ventricular size and systolic function, 55%.no regional wall motion abnormalities. Thickened aortic valve. Mild to moderate aortic valve stenosis with a valve area 1.17 cm squared. Peak velocity 2.51m/s with a peak gradient of 25 and a mean gradient of 14 millimeters of mercury. Mild tricuspid valve regurgitation. Estimated pulmonary artery peak systolic pressure was 34 mmHg There is no pericardial effusion. There are no intracardiac masses. Dr Cisco Armendariz MD FAC (Electronically Signed) Final Date: 21 September 2019 23:55 S
--- NOTE | 2019-09-21 16:49 | CTR_ITS ---
PROCEDURE INFORMATION: Exam: CT Angiography Head With Contrast Exam date and time: 09/21/2019 8:35 PM Age: 74 years old Clinical indication: Speech disturbance and weakness; Type not specified; Patient HX: Confusion - weakness - speech disturbance; Additional info: CVA TECHNIQUE: Imaging protocol: Computed tomography angiography of the head with intravenous contrast. 3D rendering: MIP and/or 3D reconstructed images were created by the technologist. Total DLP: 0.16 mGy-cm Radiation optimization: All CT scans at this facility use at least one of these dose optimization techniques: automated exposure control; mA and/or kV adjustment per patient size (includes targeted exams where dose is matched to clinical indication); or iterative reconstruction. Contrast material: VISI 320; Contrast volume: 95 ml; Contrast route: 20G; COMPARISON: CT head wo con* [id number] 2019-09-21 12:28 FINDINGS: Right internal carotid artery: Mild cavernous and supraclinoid right internal carotid artery atherosclerotic plaque and stenosis. Right anterior cerebral artery: Unremarkable. No occlusion or significant stenosis. No aneurysm. Right middle cerebral artery: Unremarkable. No occlusion or significant stenosis. No aneurysm. Right posterior cerebral artery: Unremarkable. No occlusion or significant stenosis. No aneurysm. Right vertebral artery: Unremarkable. No occlusion or significant stenosis. No aneurysm. Left internal carotid artery: Mild cavernous and supraclinoid left internal carotid artery atherosclerotic plaque and stenosis. Left anterior cerebral artery: Unremarkable. No occlusion or significant stenosis. No aneurysm. Left middle cerebral artery: Unremarkable. No occlusion or significant stenosis. No aneurysm. Left posterior cerebral artery: Unremarkable. No occlusion or significant stenosis. No aneurysm. Left vertebral artery: Unremarkable. No occlusion or significant stenosis. No aneurysm. Basilar artery: Unremarkable. No occlusion or significant stenosis. No aneurysm. IMPRESSION: No acute abnormality. PROCEDURE INFORMATION: Exam: CT Angiography Neck With Contrast Exam date and time: 09/21/2019 8:35 PM Age: 74 years old Clinical indication: Speech disturbance and weakness; Type not specified; Patient HX: Confusion - weakness - speech disturbance; Additional info: CVA TECHNIQUE: Imaging protocol: Computed tomography angiography of the neck with intravenous contrast. 3D rendering: MIP and/or 3D reconstructed images were created by the technologist. Total DLP: 0.16 mGy-cm Radiation optimization: All CT scans at this facility use at least one of these dose optimization techniques: automated exposure control; mA and/or kV adjustment per patient size (includes targeted exams where dose is matched to clinical indication); or iterative reconstruction. Contrast material: VISI 320; Contrast volume: 95 ml; Contrast route: 20G; COMPARISON: CT head wo con* [id number] 2019-09-21 12:28 FINDINGS: VASCULATURE: Right common carotid artery: Mild atherosclerotic plaque in the predominately distal right common carotid artery and the bifurcation. Right internal carotid artery: Mild atherosclerotic plaque in the carotid bulb and proximal right internal carotid artery with less than 50% stenosis by NASCET criteria. Right external carotid artery: Unremarkable. No occlusion or stenosis of the origin. Right vertebral artery: Unremarkable. No stenosis. No dissection or occlusion. Left common carotid artery: Mild atherosclerotic plaque in the predominately distal left common carotid artery and the bifurcation. Left internal carotid artery: Mild atherosclerotic plaque in the proximal left internal carotid artery and carotid bulb with less than 50% stenosis by NASCET criteria. Left external carotid artery: Unremarkable. No occlusion or stenosis of the origin. Left vertebral artery: Unremarkable. No stenosis. No dissection or occlusion. Aorta: Mild aortic atherosclerosis. NECK: Bones/joints: No acute fracture. Soft tissues: Normal. No significant soft tissue swelling. CT/CT angio headneck* [id number] IMPRESSION: Mild bilateral proximal ICA atherosclerotic disease with less than 50% stenosis. COMMENT: Using NASCET method for measuring degree of carotid artery stenosis: Mild is less than 50% stenosis. Moderate is 50-69% stenosis. Severe is 70-94% stenosis. Near occlusion is 95-99% stenosis. Radiation Dose CTDIVOL = (mGy): DLP = 0.16~2059.16 (mGy-cm)
[2019-09-21 16:59] LABS: Troponin 5 2HR 57.75 ng/mL (0-10); Troponin 5 2HR Delta -3.25 ABS# (0-10)
[2019-09-21 17:47] LABS: Thyroid Stimulating Hormone 0.67 uIU/mL (0.27-4.20)
[2019-09-21] MEDS: digoxin 250 mcg/ml INJ 2 mL 500 MCG IVP (18:51)
[2019-09-21] MEDS: enoxaparin 100 mg/mL Syringe SUBCUT (18:52)
[2019-09-21] MEDS: metoprolol tartrate 25 mg Tablet PO (18:52)
--- NOTE | 2019-09-21 20:25 | ECG_ITS ---
Measurements Intervals [place] Rate: 101 P: FL: 0 QRS: 5 QRSD: 128 T: 24 QT: 348 QTc: 453 ATRIAL FIBRILLATION/flutter WITH RAPID VENTRICULAR RESPONSE RIGHT BUNDLE BRANCH BLOCK [120+ ms QRS DURATION, UPRIGHT V1, 40+ ms S IN I/aVL/V4/V5/V6] Compared to ECG 09/21/2019 17:54:40 Myocardial infarct finding no longer present T-wave abnormality no longer present Possible ischemia no longer present Electronically Signed On 09-22-2019 20:57:07 BLEACH BOILER PACKER by Cisco Armendariz M.D. [id number]
[2019-09-21 20:35] LABS: Troponin 5 6HR 60.38 ng/L (0-10)
--- NOTE | 2019-09-21 20:49 | PC.NURSE ---
Patient taken down to CT
[2019-09-21 20:58] LABS: Troponin 5 6HR Delta -0.62 ng/L (0-12)
[2019-09-21] MEDS: iodixanol 320 mg/mL 100mL Btl IV (21:08)
[2019-09-21] MEDS: atorvastatin 40 mg Tablet 80 MG PO (21:20)
--- NOTE | 2019-09-21 22:30 | PC.NURSE ---
Patient's IV was resited during CT scan. 20 Gauge in the right A/C ----Call light within reach. Care Continued.
[2019-09-22] VITALS (10 sets, daily range): BP systolic 103–138; BP diastolic 75–89; PULSE 111–123; RESP 16–27; TEMP 36.7–37; O2SAT 92–96
[2019-09-22 05:01] LABS: Basophils % 0.7 %; Eosinophils # 0.1 10^3/uL (0.0-0.8); Eosinophils % 2.5 %; Hematocrit 33.4 % (37.0-47.0); Hemoglobin 9.2 g/dL (11.5-15.3); Lymphocytes # 0.9 10^3/uL (0.8-4.8); Lymphocytes % 15.5 %; Mean Corpuscular HGB Conc 27.5 g/dL (30.0-36.0); Mean Corpuscular Hemoglobin 24.1 pg (28.0-34.0); Mean Corpuscular Volume 87.4 fL (81-99); Mean Platelet Volume 10.9 fL (7.4-10.4); Monocytes # 0.4 10^3/uL (0.2-0.9); Monocytes % 7.8 %; Neutrophils # 4.1 10^3/uL (1.8-7.7); Neutrophils % 73.3 %; Nucleated Red Blood Cells % 0 %; Platelet Count 219 10^3/cmm (130-400); Red Blood Count 3.82 10^6/uL (4.1-5.3); Red Cell Distribution Width 17.2 % (12.1-15.1); White Blood Count 5.6 10^3/uL (4.0-10.0)
[2019-09-22 05:29] LABS: Anion Gap 18.4 (5-19); Blood Urea Nitrogen 23 mg/dL (8-23); Calcium 9.5 mg/dL (8.5-10.5); Carbon Dioxide 20 mmol/L (22-29); Chloride 106 mmol/L (98-107); Glucose 98 mg/dL (65-115); Osmolality Calculated 289 mOsm/kg (285-295); Potassium 3.4 mmol/L (3.5-5.1); Sodium 141 mmol/L (136-145)
[2019-09-22 05:30] LABS: Chol HDL Ratio 2.73 mg/dL (0.0-4.40); Cholesterol 109 mg/dL (0-200); HDL Cholesterol 40 mg/dL (60-100); LDL Cholesterol Calculated 43 mg/dL (50-129); LDL HDL Ratio 1.08 RATIO (0.00-3.22); Triglycerides 132 mg/dL (0-150)
[2019-09-22] MEDS: enoxaparin 100 mg/mL Syringe SUBCUT ×2 (05:46→17:43)
[2019-09-22] MEDS: pantoprazole DR 40 mg Tablet PO (08:45)
[2019-09-22] MEDS: metoprolol tartrate 25 mg Tablet PO ×2 (08:45→10:06)
[2019-09-22] MEDS: aspirin 81 mg EC Tablet PO (08:46)
[2019-09-22] MEDS: levothyroxine 100 mcg Tablet 200 MCG PO (08:46)
[2019-09-22] MEDS: digoxin 250 mcg Tablet PO (10:05)
[2019-09-22] MEDS: sennosides-docusate Tablet 2 TAB PO ×2 (10:05→17:43)
--- NOTE | 2019-09-22 10:27 | PC.CHAP ---
Pastoral Care Encounter/Spiritual Assessment Type of Contact [] Declined neurological physiotherapist visit [] Patient/Family/Request visit [] Outpatient visit [] Follow-up visit [] Physician referral [] Code/Alert [x] Routine visit [] Staff referral [] Actively dying [] Patient sleeping [] Family support [] [] Out of room [] Palliative care [] [] Receiving care in room [] Pre-surgical visit [] Trauma [] Long length of stay [] ICU visit [] Other: Relational/Emotional Strength [x] Patient feels connected with others/family/visitors/staff [] Distress [] Loneliness/isolation [] Abandonment Spirituality of Patient [x] Person of Tenisha [] Attends Anabaptist of their Tenisha [x] Believes in Prayer [] Reads Bible or Mu-Ism materials [] There are Spiritual issues to be addressed Mammographer Interventions [x] Prayer [] Active listening [] Non-anxious presence [] Spiritual/emotional support [] Crisis/trauma care [] Spiritual counseling [] Bereavement support [] Provided bereavement packet [] Provided Bible/devotional materials [] Provided toy/stuffed animal, coloring book to patient or family member [] Provided Communion [] Anointing/[place] [] Salvation [x] Completed spiritual assessment [] Other: Impact on Illness or Injury [] Angry [] Fearful [] Anxious [] Often cries [] Exhaustion [] Unable to work [] Unable to attend scientologist [] Unable to walk/stand [] Unable to read [] Unable to drive [] Unable to eat/drink [] Unable to sleep [] Unable to be with family [] Patient intubated [] Other: Summary Patient pleased with care, and the assurance all things will be resolved. Time spent with patient 10min
--- NOTE | 2019-09-22 12:12 | P.PN_ITS ---
Subjective Subjective: Interval history: Krystal reports she feels much better. She states her thinking is clear, and her voice clear. Medications: Reviewed: Yes Vitals/I&O/Wt Last Vital Signs Temp 98.0 F 09/22/19 11:29 Pulse 119 H 09/22/19 11:29 Resp 26 H 09/22/19 11:29 BP 116/83 09/22/19 11:29 Pulse Ox 93 09/22/19 11:29 09/21/19 09/22/19 09/22/19 22:59 06:59 14:59 Intake Total 31.417 / 348.084 17.417 / 365.501 240 / 240 Output Total 500 / 500 Balance 31.417 / 348.084 -482.583 / -134.499 240 / 240 Weight last 48 hrs Weight 99.79 kg Physical Exam Narrative: EXAM NARRATIVE: General exam no apparent distress Cardiovascular irregular, tachycardic Lungs clear Abdomen is soft, positive bowel sounds Extremities no cyanosis clubbing or edema Data : 09/22/19 04:05 09/22/19 04:05 A&P Assessment and plan (1) CVA (cerebral vascular accident): Receptive aphasia, slurred speech, confusion all consistent with CVA. With atrial flutter noted this is likely to be embolic. Neurologic deficits have completely resolved CTA neck did not demonstrate surgical disease Echocardiogram did not demonstrate thrombus Continue aspirin, high-dose statin, full dose Lovenox gh-dose, Lovenox for full dose anticoagulation Status: Acute Code(s): I63.9 - Cerebral infarction, unspecified (2) Atrial fibrillation and flutter: Continue Lovenox. Will transition to Eliquis or Xarelto on discharge. Increase metoprolol to 50 mg twice daily Digoxin 250 mcg p.o. now Reassess later today to see if addition of Cardizem as needed. At this point secondary to recent CVA are trying to avoid reinitiation of this as it may lower blood pressure too much in face of CVA Status: Acute Code(s): I48.91 - Unspecified atrial fibrillation; I48.92 - Unspecified atrial flutter (3) Elevated troponin: Likely type II Status: Acute Code(s): R79.89 - Other specified abnormal findings of blood chemistry (4) Hypertension: Allow permissive hypertension but continue lower dose metoprolol to try to prevent significant withdrawal Status: Acute Code(s): I10 - Essential (primary) hypertension (5) Hyperlipidemia: Change to high-dose statin Status: Acute Code(s): E78.5 - Hyperlipidemia, unspecified Additional A&P Information Lovenox full dose anticoagulation will serve for DVT prophylaxis as well Change to regular admission. She needs further adjustment of medications secondary to atrial fibrillation with rapid ventricular rate Attestations Medical Necessity Statement*: Needs continued hospitalization for further adjustment of medications for atrial fibrillation, see above Coding Level of Care Code Acute Patriot Missile Air Defense Artillery for g Fwd Diagnoses CVA (cerebral vascular accident) I63.9 Atrial fibrillation and flutter I48.91; I48.92 Elevated troponin R79.89 Hypertension I10 Hyperlipidemia E78.5
[2019-09-22] MEDS: digoxin 250 mcg/ml INJ 2 mL IVP (16:24)
[2019-09-22] MEDS: metoprolol tartrate 50 mg Tablet PO (17:43)
[2019-09-22] MEDS: atorvastatin 40 mg Tablet 80 MG PO (21:00)
[2019-09-23] VITALS (19 sets, daily range): BP systolic 102–154; BP diastolic 59–102; PULSE 79–122; RESP 17–29; TEMP 36.6–37; O2SAT 93–97
[2019-09-23] MEDS: enoxaparin 100 mg/mL Syringe SUBCUT ×2 (05:03→17:55)
[2019-09-23] MEDS: acetaminophen 325 mg Tablet 650 MG PO (05:53)
[2019-09-23] MEDS: dilTIAZem 30 mg Tablet PO (08:25)
[2019-09-23] MEDS: levothyroxine 100 mcg Tablet 200 MCG PO (10:50)
[2019-09-23] MEDS: metoprolol tartrate 50 mg Tablet PO ×2 (10:51→17:56)
[2019-09-23] MEDS: aspirin 81 mg EC Tablet PO (10:51)
[2019-09-23] MEDS: pantoprazole DR 40 mg Tablet PO (10:51)
--- NOTE | 2019-09-23 12:07 | P.PN_ITS ---
Subjective Subjective: Interval history: Krystal reports she is feeling okay. No headache. Talking normally. No issues with language. No palpitations. Medications: Reviewed: Yes Vitals/I&O/Wt Last Vital Signs Temp 98.2 F 09/23/19 09:00 Pulse 122 H 09/23/19 11:09 Resp 22 H 09/23/19 11:09 BP 122/72 09/23/19 11:09 Pulse Ox 93 09/23/19 11:09 09/22/19 09/23/19 09/23/19 22:59 06:59 14:59 Intake Total 333 / 813 120 / 120 Balance 333 / 813 120 / 120 Physical Exam Narrative: EXAM NARRATIVE: General exam no apparent distress Cardiovascular irregular, tachycardic Lungs clear Abdomen is soft, positive bowel sounds Extremities no cyanosis clubbing or edema Data : 09/22/19 04:05 09/22/19 04:05 A&P Assessment and plan (1) CVA (cerebral vascular accident): Receptive aphasia, slurred speech, confusion all consistent with CVA. With atrial flutter noted this is likely to be embolic. Neurologic deficits have completely resolved CTA neck did not demonstrate surgical disease Echocardiogram did not demonstrate thrombus Continue aspirin, high-dose statin, full dose Lovenox. Change to anticoagulant orally on discharge. Status: Acute Code(s): I63.9 - Cerebral infarction, unspecified (2) Atrial fibrillation and flutter: Continue Lovenox. Will transition to Eliquis or Xarelto on discharge. Continue metoprolol 50 mg twice daily 125 mcg of digoxin now on daily Increase Cardizem to 60 mg 4 times daily Status: Acute Code(s): I48.91 - Unspecified atrial fibrillation; I48.92 - Unspecified atrial flutter (3) Elevated troponin: Likely type II Status: Acute Code(s): R79.89 - Other specified abnormal findings of blood chemistry (4) Hypertension: Stable Status: Acute Code(s): I10 - Essential (primary) hypertension (5) Hyperlipidemia: Change to high-dose statin Status: Acute Code(s): E78.5 - Hyperlipidemia, unspecified Additional A&P Information Lovenox full dose anticoagulation will serve for DVT prophylaxis as well Discharge is expected, when rate is under control. Still adjusting medications. Attestations Medical Necessity Statement*: Needs continued hospitalization for adjustment of medications for atrial fibrillation with rapid ventricular rate. Coding Level of Care Code Acute Power Generation Technician for g Fwd Diagnoses CVA (cerebral vascular accident) I63.9 Atrial fibrillation and flutter I48.91; I48.92 Elevated troponin R79.89 Hypertension I10 Hyperlipidemia E78.5
[2019-09-23] MEDS: digoxin 125 mcg Tablet PO (12:15)
[2019-09-23] MEDS: dilTIAZem 30 mg Tablet 60 MG PO ×2 (13:33→20:22)
--- NOTE | 2019-09-23 13:37 | PC.NURSE ---
diltiazem drip off.
[2019-09-23] MEDS: sennosides-docusate Tablet 2 TAB PO (17:56)
[2019-09-23] MEDS: atorvastatin 40 mg Tablet 80 MG PO (20:22)
[2019-09-24] VITALS (15 sets, daily range): BP systolic 98–121; BP diastolic 54–86; PULSE 81–105; RESP 18–35; TEMP 36.6–36.8; O2SAT 94–99
[2019-09-24 04:47] LABS: Basophils % 0.5 %; Eosinophils # 0.1 10^3/uL (0.0-0.8); Eosinophils % 0.9 %; Hematocrit 33.8 % (37.0-47.0); Hemoglobin 9.5 g/dL (11.5-15.3); Lymphocytes # 1.2 10^3/uL (0.8-4.8); Lymphocytes % 14.9 %; Mean Corpuscular HGB Conc 28.1 g/dL (30.0-36.0); Mean Corpuscular Hemoglobin 25.4 pg (28.0-34.0); Mean Corpuscular Volume 90.4 fL (81-99); Mean Platelet Volume 10.4 fL (7.4-10.4); Monocytes # 0.7 10^3/uL (0.2-0.9); Monocytes % 8.4 %; Neutrophils # 5.8 10^3/uL (1.8-7.7); Nucleated Red Blood Cells % 0 %; Platelet Count 214 10^3/cmm (130-400); Red Blood Count 3.74 10^6/uL (4.1-5.3); Red Cell Distribution Width 17.2 % (12.1-15.1); White Blood Count 7.7 10^3/uL (4.0-10.0)
[2019-09-24 05:07] LABS: Anion Gap 17.6 (5-19); Blood Urea Nitrogen 20 mg/dL (8-23); Calcium 9.2 mg/dL (8.5-10.5); Carbon Dioxide 20 mmol/L (22-29); Chloride 105 mmol/L (98-107); Digoxin 1.4 ng/mL (0.6-1.2); Glucose 102 mg/dL (65-115); Osmolality Calculated 285 mOsm/kg (285-295); Potassium 3.6 mmol/L (3.5-5.1); Sodium 139 mmol/L (136-145)
[2019-09-24] MEDS: enoxaparin 100 mg/mL Syringe SUBCUT (06:07)
[2019-09-24] MEDS: dilTIAZem 30 mg Tablet 60 MG PO (06:08)
--- NOTE | 2019-09-24 07:29 | PC.NURSE ---
patients heart rate was 80 to 90s most the night but started to rise a bit. after administration of her diltiazem she began to come back down into the 90s. Also noted that the patient has become lax in letting us know when she needs to go to the bathroom as she had yesterday early into rn forensic. She has been telling us shes fine and doesnt need to go to the bathroom but then soaking her bed sheets. weve been having her get on the bsc when her bed is being changed.
[2019-09-24] MEDS: aspirin 81 mg EC Tablet PO (09:08)
[2019-09-24] MEDS: levothyroxine 100 mcg Tablet 200 MCG PO (09:08)
[2019-09-24] MEDS: pantoprazole DR 40 mg Tablet PO (09:08)
[2019-09-24] MEDS: sennosides-docusate Tablet 2 TAB PO (09:09)
[2019-09-24] MEDS: metoprolol tartrate 50 mg Tablet PO ×2 (09:09→17:48)
[2019-09-24] MEDS: digoxin 125 mcg Tablet PO (09:09)
--- NOTE | 2019-09-24 11:46 | PC.NURSE ---
assisted to chair with 2 assist. Pt used her own walker during transfer from bed to chair. Needed verbal commands to use left arm to push her self up. She transferred fairly to the chair. OT in room for sponge bath.
--- NOTE | 2019-09-24 12:09 | PC.NURSE ---
up in chair
[2019-09-24] MEDS: dilTIAZem ER (24HR) 240 mg Capsule PO (12:50)
--- NOTE | 2019-09-24 13:44 | P.PN_ITS ---
Subjective Subjective: Interval history: Krystal reports she is doing okay. Her right hand hurts some. She wonders if this is her arthritis. She reports no speaking difficulties. Medications: Reviewed: Yes Vitals/I&O/Wt Last Vital Signs Temp 97.8 F 09/24/19 07:56 Pulse 96 09/24/19 11:47 Resp 35 H 09/24/19 11:47 BP 102/76 09/24/19 11:47 Pulse Ox 97 09/24/19 11:47 09/23/19 09/24/19 09/24/19 22:59 06:59 14:59 Intake Total 180 / 420 180 / 600 240 / 240 Output Total 500 / 1000 Balance 180 / -80 -320 / -400 240 / 240 Weight last 48 hrs Weight 112.582 kg Physical Exam Narrative: EXAM NARRATIVE: General exam no apparent distress Cardiovascular irregular, tachycardic Lungs clear Abdomen is soft, positive bowel sounds Extremities no cyanosis clubbing or edema. Good range of motion of right hand and arm but some pain to palpation of her fingers Data : 09/24/19 04:25 09/24/19 04:25 A&P Assessment and plan (1) CVA (cerebral vascular accident): Receptive aphasia, slurred speech, confusion all consistent with CVA. With atrial flutter noted this is likely to be embolic. Neurologic deficits have completely resolved CTA neck did not demonstrate surgical disease Echocardiogram did not demonstrate thrombus Continue aspirin, high-dose statin,. Change Lovenox to Eliquis Neurologic symptoms of slurred speech have gone away but she is significantly weak. She would like consideration of skilled placement for her significant weakness following CVA. Status: Acute Code(s): I63.9 - Cerebral infarction, unspecified (2) Atrial fibrillation and flutter: Currently controlled on metoprolol, Cardizem, digoxin. Anticoagulation with Eliquis Status: Acute Code(s): I48.91 - Unspecified atrial fibrillation; I48.92 - Unspecified atrial flutter (3) Elevated troponin: Likely type II Status: Acute Code(s): R79.89 - Other specified abnormal findings of blood chemistry (4) Hypertension: Stable Status: Acute Code(s): I10 - Essential (primary) hypertension (5) Hyperlipidemia: Change to high-dose statin Status: Acute Code(s): E78.5 - Hyperlipidemia, unspecified Additional A&P Information Eliquis for DVT prophylaxis Attestations Medical Necessity Statement*: Needs continued hospitalization for close monitoring of heart rate, pending placement Coding Level of Care Code Acute Etcher Printed Circuit Boards for Chg Fwd Diagnoses CVA (cerebral vascular accident) I63.9 Atrial fibrillation and flutter I48.91; I48.92 Elevated troponin R79.89 Hypertension I10 Hyperlipidemia E78.5
--- NOTE | 2019-09-24 16:13 | PC.CHAP ---
Pastoral Care Encounter/Spiritual Assessment Type of Contact [] Declined fraud investigator visit [] Patient/Family/Request visit [] Outpatient visit [x] Follow-up visit [] Physician referral [] Code/Alert [] Routine visit [] Staff referral [] Actively dying [] Patient sleeping [] Family support [] [] Out of room [] Palliative care [] [] Receiving care in room [] Pre-surgical visit [] Trauma [] Long length of stay [] ICU visit [x] Other: fellow up Relational/Emotional Strength [] Patient feels connected with others/family/visitors/staff [] Distress [] Loneliness/isolation [] Abandonment Spirituality of Patient [] Person of Tenisha [] Attends Hoahaoism of their Tenisha [] Believes in Prayer [] Reads Bible or Restoration materials [] There are Spiritual issues to be addressed Machine Design Engineer Interventions [] Prayer [] Active listening [] Non-anxious presence [] Spiritual/emotional support [] Crisis/trauma care [] Spiritual counseling [] Bereavement support [] Provided bereavement packet [] Provided Bible/devotional materials [] Provided toy/stuffed animal, coloring book to patient or family member [] Provided Communion [] Anointing/[place] [] Salvation [] Completed spiritual assessment [] Other: Impact on Illness or Injury [] Angry [] Fearful [] Anxious [] Often cries [] Exhaustion [] Unable to work [] Unable to attend nondenominational [] Unable to walk/stand [] Unable to read [] Unable to drive [] Unable to eat/drink [] Unable to sleep [] Unable to be with family [] Patient intubated [] Other: Summary Fellow up Time spent with patient 5 mins
[2019-09-24] MEDS: apixaban 5 mg Tablet PO (17:47)
[2019-09-24] MEDS: atorvastatin 40 mg Tablet 80 MG PO (20:25)
[2019-09-25] VITALS (15 sets, daily range): BP systolic 96–123; BP diastolic 53–91; PULSE 75–130; RESP 16–28; TEMP 36.6–36.9; O2SAT 92–99
[2019-09-25] MEDS: acetaminophen 325 mg Tablet 650 MG PO (08:09)
[2019-09-25] MEDS: aspirin 81 mg EC Tablet PO (08:10)
[2019-09-25] MEDS: pantoprazole DR 40 mg Tablet PO (08:10)
[2019-09-25] MEDS: apixaban 5 mg Tablet PO ×2 (08:25→17:39)
[2019-09-25] MEDS: digoxin 125 mcg Tablet PO (08:25)
[2019-09-25] MEDS: metoprolol tartrate 50 mg Tablet PO ×2 (08:25→17:39)
[2019-09-25] MEDS: levothyroxine 100 mcg Tablet 200 MCG PO (08:26)
--- NOTE | 2019-09-25 10:39 | P.PN_ITS ---
Subjective Subjective: Interval history: Krystal reports her knee hurts today. Denies any palpitations or chest pain. Nurse alerts me her heart rate has been higher this morning. Medications: Reviewed: Yes Vitals/I&O/Wt Last Vital Signs Temp 98.5 F 09/25/19 04:00 Pulse 130 H 09/25/19 09:00 Resp 20 H 09/25/19 08:21 BP 108/83 09/25/19 08:21 Pulse Ox 92 09/25/19 08:21 09/24/19 09/25/19 09/25/19 22:59 06:59 14:59 Intake Total 120 / 600 150 / 750 118 / 118 Balance 120 / 600 150 / 750 118 / 118 Weight last 48 hrs Weight 114.078 kg Weight 112.582 kg Physical Exam Narrative: EXAM NARRATIVE: General exam no apparent distress Cardiovascular irregular, tachycardic Lungs clear Abdomen is soft, positive bowel sounds Extremities no cyanosis clubbing or edema. Right knee does not appear swollen compared to the left and there is no overlying erythema Data : 09/24/19 04:25 09/24/19 04:25 A&P Assessment and plan (1) CVA (cerebral vascular accident): Receptive aphasia, slurred speech, confusion all consistent with CVA. With atrial flutter noted this is likely to be embolic. Neurologic deficits have completely resolved CTA neck did not demonstrate surgical disease Echocardiogram did not demonstrate thrombus Continue aspirin, high-dose statin,. Continue Eliquis Neurologic symptoms of slurred speech have gone away but she is significantly weak. She would like consideration of skilled placement for her significant weakness following CVA. Status: Acute Code(s): I63.9 - Cerebral infarction, unspecified (2) Atrial fibrillation and flutter: Rate has increased again despite being on metoprolol, Cardizem, digoxin. On anticoagulation with Eliquis. Will consult cardiology secondary to difficult to control atrial fibrillation with rapid ventricular rate. Status: Acute Code(s): I48.91 - Unspecified atrial fibrillation; I48.92 - Unspecified atrial flutter (3) Elevated troponin: Likely type II Status: Acute Code(s): R79.89 - Other specified abnormal findings of blood chemistry (4) Hypertension: Stable Status: Acute Code(s): I10 - Essential (primary) hypertension (5) Hyperlipidemia: Change to high-dose statin Status: Acute Code(s): E78.5 - Hyperlipidemia, unspecified Additional A&P Information Eliquis for DVT prophylaxis Attestations Medical Necessity Statement*: Needs continued hospitalization for adjustment of medications for rate control. Coding Level of Care Code Acute Senior Data Warehouse Architect for Chg Fwd Diagnoses CVA (cerebral vascular accident) I63.9 Atrial fibrillation and flutter I48.91; I48.92 Elevated troponin R79.89 Hypertension I10 Hyperlipidemia E78.5
--- NOTE | 2019-09-25 10:51 | PC.NURSE ---
Sitting up in commode transferred with verbal cues and 2 assist from bed to commode. pt is limping still on her right knee. able to use her left upper extremity to push herself up and use her own walker.
--- NOTE | 2019-09-25 10:59 | PC.NURSE ---
Pt reassured that her transfer is getting better with movement. She did fairly well transferring but with mild limitations on her right knee and right hand. she walked 4 steps using her own wheelchair.
[2019-09-25] MEDS: dilTIAZem ER (24HR) 240 mg Capsule PO (11:49)
[2019-09-25] MEDS: sennosides-docusate Tablet 2 TAB PO ×2 (11:50→17:39)
--- NOTE | 2019-09-25 12:40 | PC.NURSE ---
Warm compress applied to right knee for 20 mins. Pt stated it feels good. She usually alternate cool and warm compress at home for her arthritis. But don't usually help.
--- NOTE | 2019-09-25 13:44 | P.CONIM_ITS ---
Providers/Reason For Consult Consulting Physican/Specialty*: Cardiovascular medicine Reason for Consult*: Atrial fibrillation with rapid heart rate Attending Physician: Artur Sánchez MD Primary Care Provider: Kristian Rincon DO History of Present Illness History of Present Illness Krystal Andrews is a 74 year old female who was admitted on the with symptoms consistent with a stroke versus a TIA. She was confused, could not remember what she was doing, had slurred speech and for a while was unable to talk. When she came in she was found to be in atrial fibrillation with a rapid ventricular response. This is apparently new. Over the last 4 days her neurologic symptoms have improved and she feels like she is close to baseline. She was on low-dose aspirin at home. She also was apparently on diltiazem and a beta-heather at home though she does not recognize these medications. Since she has arrived she was originally started on Lovenox and that has been changed over to Eliquis. She was kept on the beta-heather and digoxin has been added. She is also still on Cardizem at the same dose. Her heart rate had been under good control however Dr. Sánchez noted this morning that had gone back up so he asked me to see her. Her current dose of digoxin is 125 mcg a day. She does not have any other history of underlying heart disease. 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 Review of Systems General: Reports: 10 or more systems reviewed and unremarkable except in HPI and below Meds/Allergies Home Medications and Allergies Home Medications Medication Instructions Recorded Confirmed Type aspirin 81 mg PO DAILY 09/21/19 09/21/19 History diltiazem HCl [DILT-XR] 240 mg PO DAILY 09/21/19 09/21/19 History hydrochlorothiazide 25 mg PO DAILY 09/21/19 09/21/19 History levothyroxine 200 mcg PO DAILY 09/21/19 09/21/19 History lisinopril 40 mg PO DAILY 09/21/19 09/21/19 History lovastatin 20 mg PO DAILY 09/21/19 09/21/19 History metoprolol succinate 100 mg PO DAILY 09/21/19 09/21/19 History pantoprazole 40 mg PO DAILY 09/21/19 09/21/19 History Allergies Allergy/AdvReac Type Severity Reaction Status Date / Time Penicillins Allergy ALGY-Hives Verified 09/21/19 10:55 Current Medications Current Medications Generic Name Dose Route Start Last Admin Trade Name Freq PRN Reason Stop Dose Admin Acetaminophen 650 mg 09/21/19 16:49 09/25/19 08:09 Tylenol PO 650 mg Q6H PRN Administration Mild/Mod Pain Or Temp >/= 101 Apixaban 5 mg 09/24/19 18:00 09/25/19 08:25 Eliquis PO 5 mg BID KAROLINA Administration Aspirin 81 mg 09/22/19 09:00 09/25/19 08:10 Aspirin Ec PO 81 mg DAILY KAROLINA Administration Atorvastatin Calcium 80 mg 09/21/19 21:00 09/24/19 20:25 Lipitor PO 80 mg BEDTIME KAROLINA Administration Digoxin 125 mcg 09/23/19 12:05 09/25/19 08:25 Lanoxin PO 125 mcg DAILY KAROLINA Administration Diltiazem HCl 240 mg 09/24/19 11:55 09/25/19 11:49 Cardizem Cd (24hr) PO 240 mg DAILY KAROLINA Administration Levothyroxine Sodium 200 mcg 09/22/19 09:00 09/25/19 08:26 Synthroid PO 200 mcg DAILY KAROLINA Administration Metoprolol Tartrate 50 mg 09/22/19 18:00 09/25/19 08:25 Lopressor PO 50 mg BID KAROLINA Administration Pantoprazole Sodium 40 mg 09/22/19 09:00 09/25/19 08:10 Protonix PO 40 mg DAILY KAROLINA Administration Senna/Docusate Sodium 2 tab 09/22/19 18:00 09/25/19 11:50 Senna-S PO 2 tab BID KAROLINA Administration PFSH Acute PFSH: Medical History Anemia Chronic kidney disease, stage II (mild) DJD (degenerative joint disease) GERD (gastroesophageal reflux disease) Hyperlipidemia Hypertension Hypothyroidism Obesity Pulmonary embolism Surgical History History of cholecystectomy History of hernia repair History of tubal ligation Family History Other CAD (coronary artery disease) Social History Smoking and tobacco status: never smoked Alcohol intake: never Substance/Drug Use: never Vitals/I&O/Wt Last Vital Signs Temp 97.8 F 09/25/19 11:38 Pulse 86 09/25/19 11:50 Resp 20 H 09/25/19 11:50 BP 114/91 09/25/19 11:50 Pulse Ox 94 09/25/19 11:38 09/24/19 09/25/19 09/25/19 22:59 06:59 14:59 Intake Total 120 / 600 150 / 750 118 / 118 Balance 120 / 600 150 / 750 118 / 118 Weight last 48 hrs Weight 251 lb 8 oz Weight 248 lb 3.2 oz Physical Exam Narrative: EXAM NARRATIVE: GENERAL: In general she is awake, oriented and appears to have no memory issues or speech issues HEENT: Exam within normal limits. NECK: Supple without jugular vein distention. The carotid upstroke is normal without bruits. BACK: Exam normal. LUNGS: Clear. HEART: Irregular rate and rhythm ABDOMEN: Benign without organomegaly or tenderness. EXTREMITIES: No edema. NEUROLOGIC: Exam normal. SKIN: Unremarkable. Data Other Data: Other data: CTA of the neck shows mild plaquing bilaterally of the carotid arteries. The echo reveals normal left ventricular function with mild to moderate aortic stenosis, valve area 1.17 cm? and mean gradient 25 mmHg. Digoxin level 1.4. Chest x-ray shows cardiomegaly and atherosclerotic disease. CT of the head negative. EKG shows atrial flutter with a right bundle branch block. Troponins 61, 57 and 60. Clotting studies normal. A&P Assessment and plan (1) Hyperlipidemia: Status: Acute Code(s): E78.5 - Hyperlipidemia, unspecified (2) Atrial fibrillation and flutter: Status: Acute Code(s): I48.91 - Unspecified atrial fibrillation; I48.92 - Unspecified atrial flutter (3) Dysarthria: Status: Acute Code(s): R47.1 - Dysarthria and anarthria (4) Anemia: Status: Acute Qualifiers: Anemia type: unspecified type Qualified Code(s): D64.9 - Anemia, unspecified Code(s): D64.9 - Anemia, unspecified (5) Hypertension: Status: Acute Code(s): I10 - Essential (primary) hypertension (6) CVA (cerebral vascular accident): Status: Acute Code(s): I63.9 - Cerebral infarction, unspecified (7) Elevated troponin: Status: Acute Code(s): R79.89 - Other specified abnormal findings of blood chemistry (8) Tachycardia: Status: Acute Code(s): R00.0 - Tachycardia, unspecified (9) Aortic stenosis: Status: Acute Code(s): I35.0 - Nonrheumatic aortic (valve) stenosis Additional A&P Information Her heart rate seems to have come back down as the day has gone on. I would increase the digoxin to 250 mcg daily. I will continue the beta-heather and the diltiazem and the same doses. If she is okay by tomorrow she can go home. She should be discharged on Eliquis along with the other medications as prescribed. We can talk to her as an outpatient regarding whether or not she would like to make an attempt at restoring sinus rhythm. That will require changing over to an antiarrhythmic. Consult Attestations Medical Necessity Statement: Not applicable Coding Level of Care Code New Pt Acute Library Circulation Technician for [facility] Fwd Patient Type New History Detailed Exam Detailed Medical Decision Making Moderate Complexity Diagnoses Hyperlipidemia E78.5 Atrial fibrillation and flutter I48.91; I48.92 Dysarthria R47.1 Anemia D64.9 Anemia type: unspecified type Hypertension I10 CVA (cerebral vascular accident) I63.9 Elevated troponin R79.89 Tachycardia R00.0 Aortic stenosis I35.0 Time Spent (min) 60
--- NOTE | 2019-09-25 13:50 | PC.SOCIAL ---
IMM Page 2 of IMM explained to and signed by patient's family as patient has difficulty signing. They verbalize understanding. Initialed, dated, and timed and placed in chart. Copy provided to patient.
[2019-09-25] MEDS: digoxin 250 mcg/ml INJ 2 mL 125 MCG IVP (14:41)
--- NOTE | 2019-09-25 16:00 | PC.NURSE ---
Up and walking 4 steps to bedside commode voided. da-care provided.
--- NOTE | 2019-09-25 17:52 | PC.NURSE ---
Oral care- Dentures brushed and washed. Noted 1 pill stuck in her upper denture. Will monitor. oral care provided.
[2019-09-25] MEDS: atorvastatin 40 mg Tablet 80 MG PO (21:01)
[2019-09-26] VITALS (13 sets, daily range): BP systolic 82–143; BP diastolic 49–77; PULSE 70–128; RESP 18–29; TEMP 36.4–37.2; O2SAT 92–98
[2019-09-26 05:46] LABS: Anion Gap 19.2 (5-19); Blood Urea Nitrogen 38 mg/dL (8-23); Calcium 9.3 mg/dL (8.5-10.5); Carbon Dioxide 22 mmol/L (22-29); Chloride 106 mmol/L (98-107); Glucose 100 mg/dL (65-115); Osmolality Calculated 294 mOsm/kg (285-295); Potassium 4.2 mmol/L (3.5-5.1); Sodium 143 mmol/L (136-145)
[2019-09-26 05:52] LABS: Basophils % 0.4 %; Eosinophils # 0.1 10^3/uL (0.0-0.8); Eosinophils % 1.4 %; Hematocrit 32.2 % (37.0-47.0); Hemoglobin 9.3 g/dL (11.5-15.3); Lymphocytes # 1.2 10^3/uL (0.8-4.8); Lymphocytes % 16.6 %; Mean Corpuscular HGB Conc 28.9 g/dL (30.0-36.0); Mean Corpuscular Hemoglobin 25.8 pg (28.0-34.0); Mean Corpuscular Volume 89.2 fL (81-99); Mean Platelet Volume 10.7 fL (7.4-10.4); Monocytes # 0.7 10^3/uL (0.2-0.9); Monocytes % 9.6 %; Neutrophils # 5.3 10^3/uL (1.8-7.7); Neutrophils % 71.6 %; Nucleated Red Blood Cells % 0 %; Platelet Count 235 10^3/cmm (130-400); Red Blood Count 3.61 10^6/uL (4.1-5.3); Red Cell Distribution Width 17.4 % (12.1-15.1); White Blood Count 7.4 10^3/uL (4.0-10.0)
--- NOTE | 2019-09-26 08:02 | P.PN_ITS ---
Subjective Subjective: Interval history: Krystal had some stomach upset and nausea overnight. She also had some dysuria yesterday and according to the nurses had very foul-smelling urine yesterday. She feels like her urine output has dropped off. She has not had much urine output in the last 24 hours. Also noteworthy is that her creatinine went from 1.2, two days ago on the , to 2.5 today. Her BUN is 38. Additionally, her heart rate has gone up despite increasing the digoxin dose yesterday. Currently she is in the 120-130 range. Medications: Reviewed: Yes Vitals/I&O/Wt Last Vital Signs Temp 97.6 F 09/26/19 07:59 Pulse 122 H 09/26/19 07:59 Resp 20 H 09/26/19 07:59 BP 82/56 09/26/19 07:59 Pulse Ox 97 09/26/19 07:59 09/25/19 09/26/19 09/26/19 22:59 06:59 14:59 Intake Total 240 / 358 250 / 608 240 / 240 Balance 240 / 358 250 / 608 240 / 240 Weight last 48 hrs Weight 251 lb 8 oz Physical Exam Narrative: EXAM NARRATIVE: GENERAL: In general she looks and feels well HEENT: Exam within normal limits. NECK: Supple without jugular vein distention. The carotid upstroke is normal without bruits. BACK: Exam normal. LUNGS: Clear. HEART: Irregular rate and rhythm with tachycardia ABDOMEN: Benign without organomegaly or tenderness. EXTREMITIES: No edema. NEUROLOGIC: Exam normal. SKIN: Unremarkable. Data : 09/26/19 04:47 09/26/19 04:47 A&P Assessment and plan (1) Aortic stenosis: Status: Acute Code(s): I35.0 - Nonrheumatic aortic (valve) stenosis (2) Hyperlipidemia: Status: Acute Code(s): E78.5 - Hyperlipidemia, unspecified (3) Elevated troponin: Status: Acute Code(s): R79.89 - Other specified abnormal findings of blood chemistry (4) Hypertension: Status: Acute Code(s): I10 - Essential (primary) hypertension (5) Anemia: Status: Acute Qualifiers: Anemia type: unspecified type Qualified Code(s): D64.9 - Anemia, unspecified Code(s): D64.9 - Anemia, unspecified (6) Atrial fibrillation and flutter: Status: Acute Code(s): I48.91 - Unspecified atrial fibrillation; I48.92 - Unspecified atrial flutter (7) Tachycardia: Status: Acute Code(s): R00.0 - Tachycardia, unspecified (8) Acute kidney injury: Status: Acute Code(s): N17.9 - Acute kidney failure, unspecified Additional A&P Information I will stop the digoxin obviously. Will also stop the diltiazem and change her over to a short acting verapamil which should give us better heart rate control. Her blood pressure is slightly low as well and the verapamil will not reduce her blood pressure is much as the diltiazem. I am going to leave the Lopressor dose at the same level. We will also need to get a urinalysis and culture. Attestations Medical Necessity Statement*: Not applicable Coding Level of Care Code Acute Printing Sales Representative for g Fwd History Detailed Exam Detailed Medical Decision Making Moderate Complexity Diagnoses Aortic stenosis I35.0 Hyperlipidemia E78.5 Elevated troponin R79.89 Hypertension I10 Anemia D64.9 Anemia type: unspecified type Atrial fibrillation and flutter I48.91; I48.92 Tachycardia R00.0 Acute kidney injury N17.9 Time Spent (min) 23
--- NOTE | 2019-09-26 08:39 | US_ITS ---
WS: [id number] Examination: Ultrasound of the kidneys. HISTORY: Renal failure FINDINGS: The right kidney measured 9.8 x 4.69 x 5.38 cm. Cortex measured 1.18 cm. The left kidney measured 11.63 x 4.35 x 5.08 cm. Cortex measured 1.46 cm. In the mid abdomen slightly superior to the kidneys is a complex mass with some flow in the mass this does not appear to be the aorta as this appears to be seen separate. The liver appears to be essentially normal. The differential diagnosis includes a large mass off the adrenal gland versus pancreas neoplasm. We recommend follow-up with CT be performed. US/US renal BI with bladder IMPRESSION: Cyst of the right kidney otherwise normal-appearing right and left kidneys. A large mass is seen just superior to the left kidney the differential suggests either a large adrenal tumor versus a pancreatic mass We recommend follow-up with CT be performed.
--- NOTE | 2019-09-26 08:40 | P.PN_ITS ---
Subjective Subjective: Interval history: Krystal reports she is feeling okay. She has some abdominal discomfort. Nurses relate that she did not make much urine last night, incontinent and odorous. Vitals/I&O/Wt Last Vital Signs Temp 97.6 F 09/26/19 07:59 Pulse 122 H 09/26/19 07:59 Resp 20 H 09/26/19 07:59 BP 82/56 09/26/19 07:59 Pulse Ox 97 09/26/19 07:59 09/25/19 09/26/19 09/26/19 22:59 06:59 14:59 Intake Total 240 / 358 250 / 608 240 / 240 Balance 240 / 358 250 / 608 240 / 240 Weight last 48 hrs Weight 114.078 kg Physical Exam Narrative: EXAM NARRATIVE: General exam no apparent distress Cardiovascular irregular, tachycardic, no murmur Lungs clear Abdomen is soft obese. Some tenderness is noted in the suprapubic area Extremities no cyanosis clubbing Data : 09/26/19 04:47 09/26/19 04:47 A&P Assessment and plan (1) CVA (cerebral vascular accident): Receptive aphasia, slurred speech, confusion all consistent with CVA. With atrial flutter noted this is likely to be embolic. Neurologic deficits have completely resolved CTA neck did not demonstrate surgical disease Echocardiogram did not demonstrate thrombus Continue aspirin, high-dose statin,. Continue Eliquis Neurologic symptoms of slurred speech have gone away but she is significantly weak. She would like consideration of skilled placement for her significant weakness following CVA. Today, we will hold statin until CK and evaluation of renal function can occur. This will likely resume quickly within the next day. Status: Acute Code(s): I63.9 - Cerebral infarction, unspecified (2) Atrial fibrillation and flutter: Rate has increased again despite being on metoprolol, Cardizem, digoxin. On anticoagulation with Eliquis. Secondary to lower blood pressures, renal failure, digoxin has been disc ontinued. Patient has been placed on verapamil and metoprolol. Appreciate cardiology consultation. Status: Acute Code(s): I48.91 - Unspecified atrial fibrillation; I48.92 - Unspecified atrial flutter (3) Elevated troponin: Likely type II Status: Acute Code(s): R79.89 - Other specified abnormal findings of blood chemistry (4) Hypertension: Now hypotensive Status: Acute Code(s): I10 - Essential (primary) hypertension (5) Hyperlipidemia: Hold statin secondary to renal failure while evaluation is undergoing Status: Acute Code(s): E78.5 - Hyperlipidemia, unspecified (6) Acute kidney injury: Place Boswell catheter, to rule out postobstructive renal failure Check CK Renal ultrasound Hold digoxin 500 cc saline bolus, start IV fluids at 100 cc an hour isotonic Status: Acute Code(s): N17.9 - Acute kidney failure, unspecified (7) Hypotension: 500 cc bolus, reassess Status: Acute Code(s): I95.9 - Hypotension, unspecified Additional A&P Information Eliquis for DVT prophylaxis Attestations Medical Necessity Statement*: Needs continued hospitalization for evaluation of renal failure, control of atrial fibrillation with rapid ventricular rate. Coding Level of Care Code Acute Label Stamper for g Fwd Diagnoses CVA (cerebral vascular accident) I63.9 Atrial fibrillation and flutter I48.91; I48.92 Elevated troponin R79.89 Hypertension I10 Hyperlipidemia E78.5 Acute kidney injury N17.9 Hypotension I95.9
[2019-09-26 09:30] LABS: Creatine Phosphokinase 21 U/L (26-192)
[2019-09-26] MEDS: sodium chloride 0.9% 500 ML IV (09:39)
[2019-09-26] MEDS: sodium chloride 0.9% 1,000 ML 100 ML IV ×2 (09:40→21:12)
[2019-09-26] MEDS: aspirin 81 mg EC Tablet PO (09:41)
[2019-09-26] MEDS: levothyroxine 100 mcg Tablet 200 MCG PO (09:41)
[2019-09-26] MEDS: apixaban 5 mg Tablet PO ×2 (09:41→17:35)
[2019-09-26] MEDS: sennosides-docusate Tablet 2 TAB PO ×2 (09:41→17:35)
[2019-09-26] MEDS: pantoprazole DR 40 mg Tablet PO (09:41)
[2019-09-26] MEDS: metoprolol tartrate 50 mg Tablet PO ×2 (09:41→17:35)
[2019-09-26 09:50] LABS: Urine Color Yellow (Yellow)
[2019-09-26 09:51] LABS: Add Urine Microscopic? YES; Bilirubin Urine 1+ (NEGATIVE); Blood Urine 2+ (Negative); Glucose Urine UA Norm (Normal); Ketones Urine Negative (Negative); Leukocyte Esterase Urine Negative (Negative); Nitrate Urine Negative (Negative); Protein Urine Trace (Negative); Specific Gravity, Urine 1.025 (1.005-1.030); Urine Appearance Hazy (CLEAR); Urobilinogen Urine Norm (Negative); pH Urine 5 (5-7)
[2019-09-26 09:56] LABS: RBC Urine RARE /hpf (0-2)
[2019-09-26 09:57] LABS: Add Urine Culture? Yes; Bacteria Urine 3+; Squamous Epithelial Cell Urine 0-4 (0-5); WBC Urine 25-40 /hpf (0-5)
[2019-09-26] MEDS: acetaminophen 325 mg Tablet 650 MG PO ×2 (10:20→21:12)
--- NOTE | 2019-09-26 11:42 | CTR_ITS ---
PROCEDURE INFORMATION: Exam: CT Abdomen And Pelvis Without Contrast Exam date and time: 09/26/2019 12:18 PM Age: 74 years old Clinical indication: Condition or disease; Other: Mass noted on prior US; Prior surgery; Surgery date: 6+ months; Additional info: Abnormal renal US with mass TECHNIQUE: Imaging protocol: Computed tomography of the abdomen and pelvis without contrast. Total DLP: 1688.19 mGy-cm Radiation optimization: All CT scans at this facility use at least one of these dose optimization techniques: automated exposure control; mA and/or kV adjustment per patient size (includes targeted exams where dose is matched to clinical indication); or iterative reconstruction. COMPARISON: CT abdomen pelvis w con* [id number] 04/14/2018 9:[address] abdomen pelvis 08/30/2016. FINDINGS: Lungs: 6 mm left lung base nodule stable compared to prior exam from 2016 and 2017. Liver: Large left hepatic lobe lesion measuring approximately 14.6 x 13.6 x 13.7 cm containing areas of calcifications/septation and internal complexity, stable in appearance compared to exams from 2017 and 2018. As previously noted differential includes, echinococcal cyst, biliary cystadenoma and atypical hepatic adenoma. Gallbladder and bile ducts: Status post cholecystectomy. Pancreas: No ductal dilation. Spleen: No splenomegaly. Adrenals: No solid adrenal mass. Kidneys and ureters: 2 cm right renal cyst, no change. No hydronephrosis. No solid renal mass. Stomach and bowel: Colonic diverticulosis without findings of diverticulitis. No bowel obstruction. Appendix: The appendix is not identified. No focal inflammation in the right lower quadrant. Intraperitoneal space: No free air. No significant fluid collection. Vasculature: No abdominal aortic aneurysm. Lymph nodes: No enlarged lymph nodes. Bladder: Boswell catheter is identified in the bladder. Reproductive: Unremarkable as visualized. Bones/joints: Multilevel degenerative changes. Soft tissues: Previous hernia repair. No evidence of recurrence hernia. CT/CT abdomen pelvis wo con [id number] IMPRESSION: 1. No acute findings. There is no adrenal or renal mass. Mass noted in the left upper quadrant on recent recent ultrasound likely represents patient's known large complex cystic hepatic lobe lesion which is stable compared to prior exams from 2017 and 2018. 2. Colonic diverticulosis without findings of diverticulitis. Radiation Dose CTDIVOL = (mGy): DLP = 1688.19 (mGy-cm)
[2019-09-26] MEDS: cefTRIAXone 1,000 MG in sodium chloride 0.9% (plus) 50 ML 100 MG IV (12:35)
[2019-09-26] MEDS: sodium chloride 0.9% 500 ML 999 ML IV (12:40)
[2019-09-27] VITALS (8 sets, daily range): BP systolic 95–121; BP diastolic 55–95; PULSE 57–106; RESP 19–31; TEMP 36.6–36.8; O2SAT 91–93
[2019-09-27 05:36] LABS: Basophils % 0.6 %; Eosinophils # 0.1 10^3/uL (0.0-0.8); Hematocrit 28.4 % (37.0-47.0); Hemoglobin 8.1 g/dL (11.5-15.3); Lymphocytes # 1.2 10^3/uL (0.8-4.8); Lymphocytes % 18.8 %; Mean Corpuscular HGB Conc 28.5 g/dL (30.0-36.0); Mean Corpuscular Hemoglobin 25.3 pg (28.0-34.0); Mean Corpuscular Volume 88.8 fL (81-99); Monocytes # 0.6 10^3/uL (0.2-0.9); Monocytes % 9.4 %; Neutrophils # 4.5 10^3/uL (1.8-7.7); Neutrophils % 68.7 %; Nucleated Red Blood Cells % 0 %; Platelet Count 217 10^3/cmm (130-400); Red Cell Distribution Width 17.1 % (12.1-15.1); White Blood Count 6.5 10^3/uL (4.0-10.0)
[2019-09-27 06:05] LABS: Anion Gap 19.1 (5-19); Blood Urea Nitrogen 42 mg/dL (8-23); Carbon Dioxide 18 mmol/L (22-29); Chloride 108 mmol/L (98-107); Glucose 89 mg/dL (65-115); Osmolality Calculated 289 mOsm/kg (285-295); Potassium 4.1 mmol/L (3.5-5.1); Sodium 141 mmol/L (136-145)
[2019-09-27] MEDS: sodium chloride 0.9% 1,000 ML 100 ML IV ×2 (06:40→16:29)
--- NOTE | 2019-09-27 09:23 | DCPLANNER ---
Pg 2 of IM updated and reviewed with pt. No questions, copy provided.
[2019-09-27] MEDS: levothyroxine 100 mcg Tablet 200 MCG PO (10:02)
[2019-09-27] MEDS: pantoprazole DR 40 mg Tablet PO (10:02)
[2019-09-27] MEDS: apixaban 5 mg Tablet PO ×2 (10:03→18:02)
[2019-09-27] MEDS: aspirin 81 mg EC Tablet PO (10:03)
[2019-09-27] MEDS: metoprolol tartrate 50 mg Tablet PO ×2 (10:04→18:02)
[2019-09-27] MEDS: sennosides-docusate Tablet 2 TAB PO ×2 (10:04→18:02)
[2019-09-27] MEDS: cefTRIAXone 1,000 MG in sodium chloride 0.9% (plus) 50 ML 100 MG IV (10:10)
--- NOTE | 2019-09-27 10:20 | PM.PN ---
Subjective Subjective: Interval history: Yesterday, the patient's urine output dropped. Her creatinine increased from 1.4-2 0.5/40 8 hours. She had foul-smelling urine. She was placed on ceftriaxone, given some sodium chloride intravenously and a Boswell catheter was placed. Yesterday, she had slightly more than 3 L in and only 325 mL out. This morning there is fairly clear urine in the urinary catheter bag. She does not have any complaints. I stopped the digoxin yesterday and change the Cardizem to verapamil short acting variety. As I see her today her heart rate is in the 60s however the nurses state that when she gets up and moves her heart rate jumps up to around 120 or 130 for a brief period of time. It then goes back down once she is stops exercising. She is still on the beta-heather at the same dose and still is on Eliquis. Her creatinine is down to 2.1 today from 2.5 yesterday. Medications: Reviewed: Yes Vitals/I&O/Wt Last Vital Signs Temp 98.2 F 09/27/19 04:00 Pulse 106 H 09/27/19 07:33 Resp 24 H 09/27/19 07:33 BP 108/55 09/27/19 07:33 Pulse Ox 93 09/27/19 07:33 09/26/19 09/27/19 09/27/19 22:59 06:59 14:59 Intake Total 1170 / 2682 946.667 / 3628.667 240 / 240 Output Total 100 / 100 225 / 325 Balance 1070 / 2582 721.667 / 3303.667 240 / 240 Physical Exam Narrative: EXAM NARRATIVE: GENERAL: In general she is comfortable at rest HEENT: Exam within normal limits. NECK: Supple without jugular vein distention. The carotid upstroke is normal without bruits. BACK: Exam normal. LUNGS: Clear. HEART: Irregular rate and rhythm ABDOMEN: Benign without organomegaly or tenderness. EXTREMITIES: No edema. NEUROLOGIC: Exam normal. SKIN: Unremarkable. Urinary Catheter Management^: Boswell: Cath Placed During This Visit: yes Urethral Indwelling: Yes Reason for Continuing Indwelling Catheter: Accurate Measurement of Urinary Output in Critically Ill Patients Urinary Catheter Date of Insertion: 09/26/19 Urinary Catheter Time of Insertion: 08:45 Data : 09/27/19 04:50 09/27/19 04:50 Micro: Microbiology 09/26/19 09:29 Urine Culture - Preliminary Urine,Clean Catch Gram Negative Rods A&P Assessment and plan (1) Acute kidney injury: Status: Acute Code(s): N17.9 - Acute kidney failure, unspecified (2) Aortic stenosis: Status: Acute Code(s): I35.0 - Nonrheumatic aortic (valve) stenosis (3) Hyperlipidemia: Status: Acute Code(s): E78.5 - Hyperlipidemia, unspecified (4) Elevated troponin: Status: Acute Code(s): R79.89 - Other specified abnormal findings of blood chemistry (5) Anemia: Status: Acute Qualifiers: Anemia type: unspecified type Qualified Code(s): D64.9 - Anemia, unspecified Code(s): D64.9 - Anemia, unspecified (6) Atrial fibrillation and flutter: Status: Acute Code(s): I48.91 - Unspecified atrial fibrillation; I48.92 - Unspecified atrial flutter (7) Hypertension: Status: Acute Code(s): I10 - Essential (primary) hypertension (8) Tachycardia: Status: Acute Code(s): R00.0 - Tachycardia, unspecified Additional A&P Information We will continue the antibiotics, the fluids and the medications as currently prescribed I do not want to increase the AV tyler blockers for fear of bradycardia. We will have to accept some episodes of fast heart rate when she is up and around. She is severely deconditioned. Her creatinine seems to be improving. We will leave the Boswell in. No changes made from my standpoint today. Attestations Medical Necessity Statement*: Not applicable Coding Level of Care Code Established Pt Acute Buttonhole Facer for g Fwd Patient Type Established History Detailed Exam Detailed Medical Decision Making Moderate Complexity Diagnoses Acute kidney injury N17.9 Aortic stenosis I35.0 Hyperlipidemia E78.5 Elevated troponin R79.89 Anemia D64.9 Anemia type: unspecified type Atrial fibrillation and flutter I48.91; I48.92 Hypertension I10 Tachycardia R00.0
[2019-09-27] MEDS: ondansetron 2 mg/ML SDV 2 mL 4 MG IVP (11:25)
[2019-09-27] MEDS: acetaminophen 325 mg Tablet 650 MG PO (11:30)
--- NOTE | 2019-09-27 13:00 | PM.PN ---
Subjective Subjective: Interval history: She feels that overall she is doing somewhat better. She is complaining of stiffness in her hands, some difficulties with moving of the right leg which she reports are chronic due to arthritis in her right knee to the point that she has difficulty lifting the right leg off the bed. She says that she is always been able to move it [id number]. Vitals/I&O/Wt Last Vital Signs Temp 97.8 F 09/27/19 10:54 Pulse 57 L 09/27/19 10:54 Resp 31 H 09/27/19 10:54 BP 95/62 09/27/19 10:54 Pulse Ox 93 09/27/19 10:54 09/26/19 09/27/19 09/27/19 22:59 06:59 14:59 Intake Total 1170 / 2682 946.667 / 3628.667 290 / 290 Output Total 100 / 100 225 / 325 Balance 1070 / 2582 721.667 / 3303.667 290 / 290 Physical Exam Const: COMMON NORMALS: no apparent distress and oriented x3 HENMT: COMMON NORMALS: oropharynx normal Neck/C-Spine: COMMON NORMALS: no JVD Resp: COMMON NORMALS: normal respiratory effort and clear to auscultation bilaterally AUSCULTATION: clear to auscultation bilaterally Cardio: COMMON NORMALS: no JVD, regular rhythm, S1 normal heart sound, S2 normal heart sound and no murmurs RHYTHM: regular rhythm HEART SOUNDS: S1 normal and S2 normal GI: COMMON NORMALS: normal to inspection, nondistended, normoactive bowel sounds, soft to palpation and non-tender PALPATION: Yes soft Extremity: COMMON NORMALS: no joint enlargement and no pedal edema Neuro: COMMON NORMALS: oriented x3 and moves all extremities OTHER: Persistent mild a fascia, dysarthria. She feels with subjective improvement. Visual canchola intact to confrontation. Sensation intact and symmetrical bilaterally. No neglect. Moves all extremities, with 2/5 weakness in the right lower extremity, although reports this is chronic due to arthritis, having difficulty lifting the leg off the bed. Power otherwise symmetrical. No pronator drift. Skin: COMMON NORMALS: no rashes or lesions noted GENERAL SKIN EXAM: no rashes or lesions noted Urinary Catheter Management^: Boswell: Cath Placed During This Visit: yes Urethral Indwelling: Yes Reason for Continuing Indwelling Catheter: Accurate Measurement of Urinary Output in Critically Ill Patients Urinary Catheter Date of Insertion: 09/26/19 Urinary Catheter Time of Insertion: 08:45 Data : 09/27/19 04:50 09/27/19 04:50 Micro: Microbiology 09/26/19 09:29 Urine Culture - Preliminary Urine,Clean Catch Gram Negative Rods A&P Assessment and plan (1) CVA (cerebral vascular accident): Mild a aphasia, mild dysarthria present, although she reports that her speech has been getting better. Complains of stiffness in the hands as well as the right leg, but denies other symptoms of weakness or numbness. Right leg reportedly chronically weak due to arthritis in the right knee, and says has not been able to lift it off the bed for a long time. CTA neck did not demonstrate surgical disease Echocardiogram did not demonstrate thrombus Continue ASA, resume statin. Continue Eliquis w AFib. Pending placement for rehabilitation at SNF after discharge after CVA, with arthritis, resulting in generalized weakness, functional decline. CK is not elevated. Status: Acute Code(s): I63.9 - Cerebral infarction, unspecified (2) Atrial fibrillation and flutter: Appreciate cardiology recommendations regarding optimization of management for A. fib with RVR. Heart rates appear to be variable, this morning up to 110-120, subsequently down in the 60s after receiving her medications. Continue metoprolol, verapamil. Digoxin was discontinued due to acute kidney injury. Anticoagulation with Eliquis. Status: Acute Code(s): I48.91 - Unspecified atrial fibrillation; I48.92 - Unspecified atrial flutter (3) Elevated troponin: Suspected mismatch and demand and supply. Status: Acute Code(s): R79.89 - Other specified abnormal findings of blood chemistry (4) Hypertension: Blood pressure soft. Status: Acute Code(s): I10 - Essential (primary) hypertension (5) Hyperlipidemia: Resume statin. Status: Acute Code(s): E78.5 - Hyperlipidemia, unspecified (6) Acute kidney injury: Monitor I&O. Renal ultrasound unremarkable. Avoid hypotension. CK not elevated. We will request urine studies. Status: Acute Code(s): N17.9 - Acute kidney failure, unspecified (7) Hypotension: 500 cc bolus, reassess Status: Acute Code(s): I95.9 - Hypotension, unspecified (8) UTI (urinary tract infection): Rocephin. Follow up culture. Status: Acute Code(s): N39.0 - Urinary tract infection, site not specified Additional A&P Information Anemia: Hemoglobin down to 8.1. No outward bleeding. Will request for Hemoccult. Monitor level. Arthritis: Consider consider additional work-up for RA, outpatient follow-up with rheumatology. Eliquis for DVT prophylaxis Attestations Medical Necessity Statement*: Continue admission for optimized heart rate management with A. fib with RVR, risk for bradycardia, acute kidney injury, status post CVA. Placement arrangements underway to custodial facility. Coding Level of Care Code Acute Product Development Intern for [facility] Fwd Diagnoses CVA (cerebral vascular accident) I63.9 Atrial fibrillation and flutter I48.91; I48.92 Elevated troponin R79.89 Hypertension I10 Hyperlipidemia E78.5 Acute kidney injury N17.9 Hypotension I95.9 UTI (urinary tract infection) N39.0
[2019-09-27 17:08] LABS: Urea Nitrogen,Urine Random 490 mg/dL; Urine Creatinine 187 mg/dL (28-217)
[2019-09-27] MEDS: lanolin oint 7 gm 1 APPLIC TOPICAL (18:01)
[2019-09-27] MEDS: atorvastatin 40 mg Tablet PO (20:32)
[2019-09-28] VITALS (12 sets, daily range): BP systolic 90–129; BP diastolic 44–85; PULSE 50–104; RESP 10–28; TEMP 36.6–36.9; O2SAT 90–95
[2019-09-28] MEDS: sodium chloride 0.9% 1,000 ML 100 ML IV ×2 (02:49→18:41)
[2019-09-28 04:03] LABS: Basophils # 0.1 10^3/uL (0.0-0.1); Basophils % 0.9 %; Eosinophils # 0.2 10^3/uL (0.0-0.8); Eosinophils % 2.7 %; Hematocrit 26.9 % (37.0-47.0); Hemoglobin 7.4 g/dL (11.5-15.3); Lymphocytes # 1.1 10^3/uL (0.8-4.8); Lymphocytes % 19.2 %; Mean Corpuscular HGB Conc 27.5 g/dL (30.0-36.0); Mean Corpuscular Hemoglobin 24.4 pg (28.0-34.0); Mean Corpuscular Volume 88.8 fL (81-99); Mean Platelet Volume 11.3 fL (7.4-10.4); Monocytes # 0.5 10^3/uL (0.2-0.9); Monocytes % 9.4 %; Neutrophils # 3.8 10^3/uL (1.8-7.7); Neutrophils % 67.4 %; Nucleated Red Blood Cells % 0 %; Platelet Count 192 10^3/cmm (130-400); Red Blood Count 3.03 10^6/uL (4.1-5.3); Red Cell Distribution Width 17.3 % (12.1-15.1); White Blood Count 5.6 10^3/uL (4.0-10.0)
[2019-09-28 04:07] LABS: Anion Gap 16.5 (5-19); Blood Urea Nitrogen 39 mg/dL (8-23); Calcium 8.8 mg/dL (8.5-10.5); Carbon Dioxide 19 mmol/L (22-29); Chloride 110 mmol/L (98-107); Glucose 92 mg/dL (65-115); Osmolality Calculated 289 mOsm/kg (285-295); Potassium 4.5 mmol/L (3.5-5.1); Sodium 141 mmol/L (136-145)
--- NOTE | 2019-09-28 09:33 | PM.PN ---
Subjective Subjective: Interval history: Krystal has had a relatively uneventful night. Her heart rate at rest is usually in the 60s and 70s. When she gets up and moves around it quickly gets above 100 bpm. Yesterday 1 of the doses of verapamil was held because of her blood pressure. It was slightly low. This morning it is 112/85. Her creatinine continues to come down slightly. Her BUN is 39 today with a creatinine of 1.9. CT of the abdomen and pelvis was unremarkable. Her hemoglobin has dropped to 7.4. Urine culture is positive for gram-negative rods. Medications: Reviewed: Yes Vitals/I&O/Wt Last Vital Signs Temp 97.8 F 09/28/19 07:40 Pulse 103 H 09/28/19 07:40 Resp 10 L 09/28/19 07:40 BP 112/85 09/28/19 07:40 Pulse Ox 93 09/28/19 07:40 09/27/19 09/28/19 09/28/19 22:59 06:59 14:59 Intake Total 1281.667 / 1622.425 4950 / 2871.667 120 / 120 Output Total 300 / 300 675 / 975 Balance 981.667 / 1511.667 385 / 1896.667 120 / 120 Physical Exam Narrative: EXAM NARRATIVE: GENERAL: She appears comfortable at rest however her heart rate now at rest is 132 HEENT: Exam within normal limits. NECK: Supple without jugular vein distention. The carotid upstroke is normal without bruits. BACK: Exam normal. LUNGS: Clear. HEART: Irregular rate and rhythm, tachycardia ABDOMEN: Benign without organomegaly or tenderness. EXTREMITIES: No edema. NEUROLOGIC: Exam normal. SKIN: Unremarkable. Urinary Catheter Management^: Boswell: Cath Placed During This Visit: yes Urethral Indwelling: Yes Reason for Continuing Indwelling Catheter: Accurate Measurement of Urinary Output in Critically Ill Patients Urinary Catheter Date of Insertion: 09/26/19 Urinary Catheter Time of Insertion: 08:45 Data : 09/28/19 03:14 09/28/19 03:14 Micro: Microbiology 09/26/19 09:29 Urine Culture - Preliminary Urine,Clean Catch Gram Negative Rods A&P Assessment and plan (1) UTI (urinary tract infection): Status: Acute Code(s): N39.0 - Urinary tract infection, site not specified (2) Hypotension: Status: Acute Code(s): I95.9 - Hypotension, unspecified (3) Acute kidney injury: Status: Acute Code(s): N17.9 - Acute kidney failure, unspecified (4) Aortic stenosis: Status: Acute Code(s): I35.0 - Nonrheumatic aortic (valve) stenosis (5) Hyperlipidemia: Status: Acute Code(s): E78.5 - Hyperlipidemia, unspecified (6) Elevated troponin: Status: Acute Code(s): R79.89 - Other specified abnormal findings of blood chemistry (7) Hypertension: Status: Acute Code(s): I10 - Essential (primary) hypertension (8) Anemia: Status: Acute Qualifiers: Anemia type: unspecified type Qualified Code(s): D64.9 - Anemia, unspecified Code(s): D64.9 - Anemia, unspecified (9) Atrial fibrillation and flutter: Status: Acute Code(s): I48.91 - Unspecified atrial fibrillation; I48.92 - Unspecified atrial flutter (10) Tachycardia: Status: Acute Code(s): R00.0 - Tachycardia, unspecified Additional A&P Information Given her elevated heart rate at rest I am going to increase the verapamil to 80 mg 3 times a day. I have asked the nurses not to hold the verapamil and less the systolic blood pressure is below 90 mmHg. Her hemoglobin is dropped to 7.4. I think most of this is delusional since she received a lot of fluid. It may be worthwhile to give her a unit of red cells. This will help her heart rate. Her creatinine continues to come down. I would hold her an extra day. Attestations Medical Necessity Statement*: Not applicable Coding Level of Care Code Acute Senior Cyber Intelligence Analyst for g Fwd History Detailed Exam Detailed Medical Decision Making Moderate Complexity Diagnoses UTI (urinary tract infection) N39.0 Hypotension I95.9 Acute kidney injury N17.9 Aortic stenosis I35.0 Hyperlipidemia E78.5 Elevated troponin R79.89 Hypertension I10 Anemia D64.9 Anemia type: unspecified type Atrial fibrillation and flutter I48.91; I48.92 Tachycardia R00.0
--- NOTE | 2019-09-28 10:15 | PC.CHAP ---
Pastoral Care Encounter/Spiritual Assessment Type of Contact [] Declined kiln door repairer visit [] Patient/Family/Request visit [] Outpatient visit [] Follow-up visit [] Physician referral [] Code/Alert [x] Routine visit [] Staff referral [] Actively dying [] Patient sleeping [] Family support [] [] Out of room [] Palliative care [] [] Receiving care in room [] Pre-surgical visit [] Trauma [] Long length of stay [] ICU visit [] Other: Relational/Emotional Strength [x] Patient feels connected with others/family/visitors/staff [] Distress [] Loneliness/isolation [] Abandonment Spirituality of Patient [x] Person of Tenisha [] Attends Christian of their Tenisha [x] Believes in Prayer [] Reads Bible or Taoism materials [] There are Spiritual issues to be addressed Enterprise Systems Administrator Interventions [x] Prayer [x] Active listening [x] Non-anxious presence [x] Spiritual/emotional support [] Crisis/trauma care [x] Spiritual counseling [] Bereavement support [] Provided bereavement packet [] Provided Bible/devotional materials [] Provided toy/stuffed animal, coloring book to patient or family member [] Provided Communion [] Anointing/[place] [] Salvation [] Completed spiritual assessment [] Other: Impact on Illness or Injury [] Angry [] Fearful [] Anxious [] Often cries [] Exhaustion [] Unable to work [] Unable to attend taoism [] Unable to walk/stand [] Unable to read [] Unable to drive [] Unable to eat/drink [] Unable to sleep [] Unable to be with family [] Patient intubated [] Other: Summary Patient is going to be going to rehab soon and seems happy with the process. Time spent with patient 10 min
[2019-09-28] MEDS: cefTRIAXone 1,000 MG in sodium chloride 0.9% (plus) 50 ML 100 MG IV (10:45)
[2019-09-28] MEDS: levothyroxine 100 mcg Tablet 200 MCG PO (10:46)
[2019-09-28] MEDS: apixaban 5 mg Tablet PO ×2 (10:46→18:36)
[2019-09-28] MEDS: pantoprazole DR 40 mg Tablet PO ×2 (10:47→22:04)
[2019-09-28] MEDS: aspirin 81 mg EC Tablet PO (10:47)
[2019-09-28] MEDS: metoprolol tartrate 50 mg Tablet PO ×2 (10:48→18:37)
[2019-09-28] MEDS: sennosides-docusate Tablet 2 TAB PO ×2 (10:48→18:37)
[2019-09-28] MEDS: ondansetron 2 mg/ML SDV 2 mL 4 MG IVP (12:27)
[2019-09-28] MEDS: acetaminophen 325 mg Tablet 650 MG PO (13:44)
[2019-09-28] MEDS: sodium chloride 0.9% 100 ML (14:25)
--- NOTE | 2019-09-28 16:49 | PC.OT ---
OT TREATMENT ATTEMPTED X 2 TODAY. PATIENT REPORTS EARLY AFTERNOON THAT SHE DID NOT FEEL WELL; NAUSEA. WHEN ATTEMPTED AGAIN IN LATER AFTERNOON, SHE WAS SLEEPING SOUNDLY. WILL ATTEMPT AGAIN TOMORROW.
[2019-09-28] MEDS: atorvastatin 40 mg Tablet PO (20:37)
--- NOTE | 2019-09-28 21:22 | PM.PN ---
Subjective Subjective: Interval history: She is feeling about the same. Denies chest pain. Bothered by stiffness in her hands. Vitals/I&O/Wt Last Vital Signs Temp 98.4 F 09/28/19 19:29 Pulse 96 09/28/19 19:29 Resp 20 H 09/28/19 19:29 BP 129/64 09/28/19 19:29 Pulse Ox 94 09/28/19 19:29 09/28/19 09/28/19 09/28/19 06:59 14:59 22:59 Intake Total 1060 / 2871.667 1240 / 1240 120 / 1360 Output Total 675 / 975 Balance 385 / 8710.867 0002 / 1240 120 / 1360 Physical Exam Const: COMMON NORMALS: no apparent distress and oriented x3 HENMT: COMMON NORMALS: oropharynx normal Neck/C-Spine: COMMON NORMALS: no JVD Resp: COMMON NORMALS: normal respiratory effort and clear to auscultation bilaterally AUSCULTATION: clear to auscultation bilaterally Cardio: COMMON NORMALS: no JVD, regular rhythm, S1 normal heart sound, S2 normal heart sound and no murmurs RHYTHM: regular rhythm HEART SOUNDS: S1 normal and S2 normal GI: COMMON NORMALS: normal to inspection, nondistended, normoactive bowel sounds, soft to palpation and non-tender PALPATION: Yes soft Extremity: COMMON NORMALS: no joint enlargement and no pedal edema Neuro: COMMON NORMALS: oriented x3 and moves all extremities OTHER: Her speech has been better. She has persistent weakness in the left upper extremity. Otherwise she is doing well, although bothered by stiffness in her hands. There is chronic weakness in right lower extremity, reports this is chronic due to arthritis, having difficulty lifting the leg off the bed. Skin: COMMON NORMALS: no rashes or lesions noted GENERAL SKIN EXAM: no rashes or lesions noted Urinary Catheter Management^: Boswell: Cath Placed During This Visit: yes Urethral Indwelling: Yes Reason for Continuing Indwelling Catheter: Other Urinary Catheter Date of Insertion: 09/26/19 Urinary Catheter Time of Insertion: 08:45 Data : 09/28/19 03:14 09/28/19 03:14 Micro: Microbiology 09/26/19 09:29 Urine Culture - Final Urine,Clean Catch Escherichia coli A&P Assessment and plan (1) CVA (cerebral vascular accident): Her speech has been improved. There is persistent weakness in the left arm. Chronic weakness in the right lower extremity but this is related to arthritis. CTA neck did not demonstrate surgical disease Echocardiogram did not demonstrate thrombus Continue ASA, resume statin. Continue Eliquis w AFib. Pending placement for rehabilitation at SNF after discharge after CVA, with arthritis, resulting in generalized weakness, functional decline. CK is not elevated. Status: Acute Code(s): I63.9 - Cerebral infarction, unspecified (2) Atrial fibrillation and flutter: Appreciate cardiology assessment. Verapamil dose increased today. Her blood pressure is better. Heart rates with improvement, although this afternoon again heart rate down to 50. Status: Acute Code(s): I48.91 - Unspecified atrial fibrillation; I48.92 - Unspecified atrial flutter (3) Anemia: Hemoglobin down to 7.4. With generalized weakness she may be symptomatic, as well as her difficult to control atrial fibrillation may also be a symptom. Ordered 1 unit PRBC transfusion. Requested Hemoccult stool yesterday. We will switch PPI to twice daily. Stop IV fluid which may be contributing to dilutional effect. Status: Acute Qualifiers: Anemia type: unspecified type Qualified Code(s): D64.9 - Anemia, unspecified Code(s): D64.9 - Anemia, unspecified (4) Elevated troponin: Suspected mismatch and demand and supply. Status: Acute Code(s): R79.89 - Other specified abnormal findings of blood chemistry (5) Hypertension: Blood pressure soft. Status: Acute Code(s): I10 - Essential (primary) hypertension (6) Hyperlipidemia: Resume statin. Status: Acute Code(s): E78.5 - Hyperlipidemia, unspecified (7) Acute kidney injury: With gradual improvement. Avoid hypotension. Monitor I&O. Renal ultrasound unremarkable. Avoid hypotension. CK not elevated. Status: Acute Code(s): N17.9 - Acute kidney failure, unspecified (8) Hypotension: 500 cc bolus, reassess Status: Acute Code(s): I95.9 - Hypotension, unspecified (9) UTI (urinary tract infection): Rocephin. Pansensitive E. coli. Status: Acute Code(s): N39.0 - Urinary tract infection, site not specified Additional A&P Information Arthritis: Consider consider additional work-up for RA, outpatient follow-up with rheumatology. Eliquis for DVT prophylaxis Attestations Medical Necessity Statement*: Continue admission for optimization of medical management of A. fib RVR, treatment of acute blood loss anemia. Coding Level of Care Code Acute Manager Of Creative Services for [facility] Fwd Diagnoses CVA (cerebral vascular accident) I63.9 Atrial fibrillation and flutter I48.91; I48.92 Anemia D64.9 Anemia type: unspecified type Elevated troponin R79.89 Hypertension I10 Hyperlipidemia E78.5 Acute kidney injury N17.9 Hypotension I95.9 UTI (urinary tract infection) N39.0
--- NOTE | 2019-09-28 21:31 | PC.NURSE ---
Patient lost Verapamil medication in bed. Another Verapamil given. This nurse explained to patient that if she happened to find the pill to please not take it. Patient stated that she wouldn't. This nurse was unable to find the pill at this time. Will monitor.
--- NOTE | 2019-09-28 23:42 | PC.NURSE ---
Patient upset over being awakened for assessment and neurologic assessment. This nurse explained to her that I wouldn't have to wake her up for another 4 hours. Okay then, go ahead and thank you. Will monitor.
[2019-09-29 04:00] VITALS: BP 124/87; PULSE 84; RESP 24; TEMP 36.6; O2SAT 95
[2019-09-29 04:02] LABS: Basophils # 0.1 10^3/uL (0.0-0.1); Basophils % 1.1 %; Eosinophils # 0.2 10^3/uL (0.0-0.8); Eosinophils % 2.7 %; Hematocrit 30.1 % (37.0-47.0); Lymphocytes # 1.1 10^3/uL (0.8-4.8); Lymphocytes % 19.6 %; Mean Corpuscular HGB Conc 26.6 g/dL (30.0-36.0); Mean Corpuscular Hemoglobin 25.4 pg (28.0-34.0); Mean Corpuscular Volume 95.6 fL (81-99); Mean Platelet Volume 11.1 fL (7.4-10.4); Monocytes # 0.5 10^3/uL (0.2-0.9); Monocytes % 8.6 %; Neutrophils # 3.8 10^3/uL (1.8-7.7); Neutrophils % 67.6 %; Nucleated Red Blood Cells % 0 %; Platelet Count 190 10^3/cmm (130-400); Red Blood Count 3.15 10^6/uL (4.1-5.3); Red Cell Distribution Width 17.4 % (12.1-15.1); White Blood Count 5.6 10^3/uL (4.0-10.0)
[2019-09-29] MEDS: acetaminophen 325 mg Tablet 650 MG PO (04:24)
[2019-09-29 04:26] LABS: Anion Gap 16.8 (5-19); Blood Urea Nitrogen 39 mg/dL (8-23); Calcium 8.8 mg/dL (8.5-10.5); Carbon Dioxide 18 mmol/L (22-29); Chloride 111 mmol/L (98-107); Glucose 90 mg/dL (65-115); Osmolality Calculated 289 mOsm/kg (285-295); Potassium 4.8 mmol/L (3.5-5.1); Sodium 141 mmol/L (136-145)
--- NOTE | 2019-09-29 04:41 | PC.NURSE ---
Complaining of right sided pain. PRN Tylenol given. Rating pain 04/20. I don't know why that hurts....I didn't fall or anything....It's been yandel hurting off and on all day. Will monitor.
--- NOTE | 2019-09-29 04:46 | PC.NURSE ---
Neuro exam performed. Patient unable to do abad maneuver with RLE secondary to arthritis. My arthritis is really acting up....I think that's what's wrong with my left hand too. Able to move RLE. I don't know why they keep doing this....nothing is changing. Explained to patient that this nurse would relay message on to oncoming shift to see if neuro checks could either be stopped or set for every 12 hours. Patient voices understanding. Will monitor.
--- NOTE | 2019-09-29 06:35 | PC.NURSE ---
Dr. Villanueva notified of decrease in patient's output and hematuria being noted in catheter. Awaiting return call.
[2019-09-29 07:27] VITALS: BP 132/93; PULSE 98; RESP 22; TEMP 36.5; O2SAT 95
[2019-09-29] MEDS: metoprolol tartrate 50 mg Tablet PO ×2 (09:21→17:51)
[2019-09-29] MEDS: aspirin 81 mg EC Tablet PO (09:21)
[2019-09-29] MEDS: levothyroxine 100 mcg Tablet 200 MCG PO (09:21)
[2019-09-29] MEDS: sennosides-docusate Tablet 2 TAB PO ×2 (09:21→17:51)
[2019-09-29] MEDS: apixaban 5 mg Tablet PO ×2 (09:21→17:51)
[2019-09-29] MEDS: pantoprazole DR 40 mg Tablet PO ×2 (09:21→17:51)
--- NOTE | 2019-09-29 09:38 | PM.PN ---
Subjective Subjective: Interval history: Krystal seems to be doing okay today. Yesterday her heart rate was jumping up into the 140s and 150s even at rest. I increase the verapamil but as I feared this caused her to become bradycardic. I believe she received some packed red blood cells yesterday as well. Her hemoglobin is 8 and her hematocrit is 30 today. Her heart rate seems to be stabilized right around 80-100. Creatinine is still 1.9. Urine output is still marginal. Medications: Reviewed: Yes Vitals/I&O/Wt Last Vital Signs Temp 97.7 F 09/29/19 07:27 Pulse 98 09/29/19 07:27 Resp 22 H 09/29/19 07:27 BP 132/93 09/29/19 07:27 Pulse Ox 95 09/29/19 07:27 09/28/19 09/29/19 09/29/19 22:59 06:59 14:59 Intake Total 1180 / 2420 240 / 240 Output Total 400 / 400 Balance 1180 / 2420 -400 / 2020 240 / 240 Physical Exam Narrative: EXAM NARRATIVE: GENERAL: In general she is comfortable at rest HEENT: Exam within normal limits. NECK: Supple without jugular vein distention. The carotid upstroke is normal without bruits. BACK: Exam normal. LUNGS: Clear. HEART: Irregular rate and rhythm ABDOMEN: Benign without organomegaly or tenderness. EXTREMITIES: No edema. NEUROLOGIC: Exam normal. SKIN: Unremarkable. Urinary Catheter Management^: Boswell: Cath Placed During This Visit: yes Urethral Indwelling: Yes Reason for Continuing Indwelling Catheter: Other Urinary Catheter Date of Insertion: 09/26/19 Urinary Catheter Time of Insertion: 08:45 Data : 09/29/19 03:44 09/29/19 03:44 Micro: Microbiology 09/26/19 09:29 Urine Culture - Final Urine,Clean Catch Escherichia coli A&P Assessment and plan (1) UTI (urinary tract infection): Status: Acute Code(s): N39.0 - Urinary tract infection, site not specified (2) Acute kidney injury: Status: Acute Code(s): N17.9 - Acute kidney failure, unspecified (3) Aortic stenosis: Status: Acute Code(s): I35.0 - Nonrheumatic aortic (valve) stenosis (4) Hyperlipidemia: Status: Acute Code(s): E78.5 - Hyperlipidemia, unspecified (5) Hypertension: Status: Acute Code(s): I10 - Essential (primary) hypertension (6) Anemia: Status: Acute Qualifiers: Anemia type: unspecified type Qualified Code(s): D64.9 - Anemia, unspecified Code(s): D64.9 - Anemia, unspecified (7) Atrial fibrillation and flutter: Status: Acute Code(s): I48.91 - Unspecified atrial fibrillation; I48.92 - Unspecified atrial flutter (8) Tachycardia: Status: Acute Code(s): R00.0 - Tachycardia, unspecified Additional A&P Information Yesterday I reduce the verapamil dose back down to 40 mg 3 times a day and have kept the beta-heather dose the same. With the red blood cell infusion I think her heart rate is spiking less. I believe we should settle on the current doses of the verapamil and the beta-heather. We will need to accept a mild amount of tachycardia when she is active. Otherwise, if we push the medicines too much she will become bradycardic. No changes made today. She should be ready to transfer soon. 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
[2019-09-29 12:00] VITALS: BP 125/73; PULSE 101; RESP 18; TEMP 36.6; O2SAT 92
[2019-09-29] MEDS: cefTRIAXone 1,000 MG in sodium chloride 0.9% (plus) 50 ML 100 MG IV (12:13)
--- NOTE | 2019-09-29 15:45 | PC.SOCIAL ---
IMM Updated Page 2 of IMM updated and given to patient. Initialed, dated, and timed and placed back in chart.
[2019-09-29 16:00] VITALS: BP 133/77; PULSE 80; RESP 27; TEMP 36.6; O2SAT 98
[2019-09-29 17:44] VITALS: PULSE 67; O2SAT 97
--- NOTE | 2019-09-29 19:11 | P.PN_ITS ---
Subjective Subjective: Interval history: She is having some sharp discomfort on the right lower chest/upper abdomen and anterior axillary line. This is worse with palpation, cough, deep breaths. She otherwise denies other pain or discomfort. No shortness of breath. Vitals/I&O/Wt Last Vital Signs Temp 97.8 F 09/29/19 16:00 Pulse 67 09/29/19 17:44 Resp 27 H 09/29/19 16:00 BP 133/77 09/29/19 16:00 Pulse Ox 97 09/29/19 17:44 09/29/19 09/29/19 09/29/19 06:59 14:59 22:59 Intake Total 360 / 360 120 / 480 Output Total 400 / 400 350 / 350 Balance -400 / 2070 360 / 360 -230 / 130 Physical Exam Const: COMMON NORMALS: no apparent distress and oriented x3 HENMT: COMMON NORMALS: oropharynx normal Neck/C-Spine: COMMON NORMALS: no JVD Resp: COMMON NORMALS: normal respiratory effort and clear to auscultation bilaterally AUSCULTATION: clear to auscultation bilaterally Cardio: COMMON NORMALS: no JVD, regular rhythm, S1 normal heart sound, S2 normal heart sound and no murmurs RHYTHM: regular rhythm HEART SOUNDS: S1 normal and S2 normal GI: COMMON NORMALS: normal to inspection, nondistended, normoactive bowel sounds, soft to palpation and non-tender PALPATION: Yes soft Extremity: COMMON NORMALS: no joint enlargement and no pedal edema Neuro: COMMON NORMALS: oriented x3 and moves all extremities OTHER: Today no discernible a aphasia or dysarthria. She has persistent weakness in the left upper extremity. Otherwise she is doing well, although bothered by stiffness in her hands. There is chronic weakness in right lower extremity, reports this is chronic due to arthritis, having difficulty lifting the leg off the bed. Skin: COMMON NORMALS: no rashes or lesions noted GENERAL SKIN EXAM: no rashes or lesions noted Urinary Catheter Management^: Boswell: Cath Placed During This Visit: yes Urethral Indwelling: Yes Reason for Continuing Indwelling Catheter: Other Urinary Catheter Date of Insertion: 09/26/19 Urinary Catheter Time of Insertion: 08:45 Data : 09/29/19 03:44 09/29/19 03:44 A&P Assessment and plan (1) CVA (cerebral vascular accident): Her speech has been improved. There is persistent weakness in the left arm. Chronic weakness in the right lower extremity but this is related to arthritis. CTA neck did not demonstrate surgical disease Echocardiogram did not demonstrate thrombus Continue ASA, statin. Continue Eliquis w AFib. Pending placement for rehabilitation at SNF after discharge after CVA, with arthritis, resulting in generalized weakness, functional decline. CK is not elevated. Status: Acute Code(s): I63.9 - Cerebral infarction, unspecified (2) Atrial fibrillation and flutter: No changes to medications today. If does well, will plan for discharge tomorrow. Cardiology recommendations appreciated. Status: Acute Code(s): I48.91 - Unspecified atrial fibrillation; I48.92 - Unspecified atrial flutter (3) Anemia: With partial response to PRBC transfusion, with hemoglobin up to 8. No gross bleeding noted anywhere. Pending collection of Hemoccult. IV fluids had been stopped. PPI to twice daily. Status: Acute Qualifiers: Anemia type: unspecified type Qualified Code(s): D64.9 - Anemia, unspe cified Code(s): D64.9 - Anemia, unspecified (4) Elevated troponin: Suspected mismatch in demand and supply. Status: Acute Code(s): R79.89 - Other specified abnormal findings of blood chemistry (5) Hypertension: Blood pressure improved Status: Acute Code(s): I10 - Essential (primary) hypertension (6) Hyperlipidemia: Resumed statin. Status: Acute Code(s): E78.5 - Hyperlipidemia, unspecified (7) Acute kidney injury: With gradual improvement. Avoid hypotension. Monitor I&O. Renal ultrasound unremarkable. Avoid hypotension. CK not elevated. Status: Acute Code(s): N17.9 - Acute kidney failure, unspecified (8) Hypotension: Resolved Status: Acute Code(s): I95.9 - Hypotension, unspecified (9) UTI (urinary tract infection): Rocephin. Pansensitive E. coli. Status: Acute Code(s): N39.0 - Urinary tract infection, site not specified Additional A&P Information Arthritis: Consider consider additional work-up for RA, outpatient follow-up with rheumatology. Eliquis for DVT prophylaxis Attestations Medical Necessity Statement*: Continue admission for assessment of acute on chronic anemia while requiring anticoagulation, optimization of management of A. fib with RVR. Coding Level of Care Code Acute Interventional Technologist for [facility] Diagnoses CVA (cerebral vascular accident) I63.9 Atrial fibrillation and flutter I48.91; I48.92 Anemia D64.9 Anemia type: unspecified type Elevated troponin R79.89 Hypertension I10 Hyperlipidemia E78.5 Acute kidney injury N17.9 Hypotension I95.9 UTI (urinary tract infection) N39.0
[2019-09-29 20:00] VITALS: BP 114/61; PULSE 77; RESP 25; TEMP 36.6; O2SAT 95
[2019-09-29] MEDS: atorvastatin 40 mg Tablet PO (21:30)
[2019-09-29 21:38] LABS: Glucose Point of Care 124 mg/dL (70-110)
[2019-09-30] VITALS (7 sets, daily range): BP systolic 100–133; BP diastolic 65–97; PULSE 82–110; RESP 22–29; TEMP 36.6–37.1; O2SAT 90–95
[2019-09-30 04:39] LABS: Basophils % 0.7 %; Eosinophils # 0.2 10^3/uL (0.0-0.8); Eosinophils % 3.7 %; Hematocrit 27.2 % (37.0-47.0); Hemoglobin 7.8 g/dL (11.5-15.3); Lymphocytes % 17.6 %; Mean Corpuscular HGB Conc 28.7 g/dL (30.0-36.0); Mean Corpuscular Hemoglobin 24.8 pg (28.0-34.0); Mean Corpuscular Volume 86.3 fL (81-99); Mean Platelet Volume 10.4 fL (7.4-10.4); Monocytes # 0.5 10^3/uL (0.2-0.9); Monocytes % 8.8 %; Neutrophils # 3.9 10^3/uL (1.8-7.7); Nucleated Red Blood Cells % 0 %; Platelet Count 196 10^3/cmm (130-400); Red Blood Count 3.15 10^6/uL (4.1-5.3); Red Cell Distribution Width 17.2 % (12.1-15.1); White Blood Count 5.7 10^3/uL (4.0-10.0)
[2019-09-30 04:53] LABS: Anion Gap 16.5 (5-19); Blood Urea Nitrogen 33 mg/dL (8-23); Carbon Dioxide 20 mmol/L (22-29); Chloride 110 mmol/L (98-107); Glucose 100 mg/dL (65-115); Osmolality Calculated 291 mOsm/kg (285-295); Potassium 4.5 mmol/L (3.5-5.1); Sodium 142 mmol/L (136-145)
[2019-09-30] MEDS: aspirin 81 mg EC Tablet PO (09:27)
[2019-09-30] MEDS: sennosides-docusate Tablet 2 TAB PO ×2 (09:27→18:14)
[2019-09-30] MEDS: apixaban 5 mg Tablet PO ×2 (09:27→18:14)
[2019-09-30] MEDS: pantoprazole DR 40 mg Tablet PO ×2 (09:27→18:14)
[2019-09-30] MEDS: metoprolol tartrate 50 mg Tablet PO ×2 (09:27→18:14)
[2019-09-30] MEDS: levothyroxine 100 mcg Tablet 200 MCG PO (09:27)
--- NOTE | 2019-09-30 09:54 | PM.PN ---
Subjective Subjective: Interval history: Krystal is unchanged overnight. She still has episodes of tachycardia when she is up and around. Otherwise her baseline heart rate is in the 70s when she is resting. Having increased the verapamil the other day it drove her heart rate down too low. Therefore, we have settled on the current doses of verapamil and a beta-heather. Her hemoglobin is back down to 7.8. Her creatinine though continues to decrease and is down to 1.4. The urine culture revealed E. coli. Her only complaint is some sharp discomfort along the right costal margin which radiates up into the right axillary area. This discomfort is worse with movement, deep breaths, cough and palpation. Vitals/I&O/Wt Last Vital Signs Temp 98.7 F 09/30/19 07:25 Pulse 110 H 09/30/19 07:25 Resp 29 H 09/30/19 07:25 BP 133/95 09/30/19 07:25 Pulse Ox 92 09/30/19 07:25 09/29/19 09/30/19 09/30/19 22:59 06:59 14:59 Intake Total 180 / 540 210 / 750 240 / 240 Output Total 350 / 350 550 / 900 Balance -170 / 190 -340 / -150 240 / 240 Physical Exam Narrative: EXAM NARRATIVE: GENERAL: In general she appears comfortable at rest HEENT: Exam within normal limits. NECK: Supple without jugular vein distention. The carotid upstroke is normal without bruits. BACK: Exam normal. LUNGS: Clear. HEART: Irregular rate and rhythm ABDOMEN: Benign without organomegaly or tenderness. EXTREMITIES: No edema. NEUROLOGIC: Exam normal. SKIN: Unremarkable. Urinary Catheter Management^: Boswell: Cath Placed During This Visit: yes Urethral Indwelling: Yes Reason for Continuing Indwelling Catheter: Accurate Measurement of Urinary Output in Critically Ill Patients Urinary Catheter Date of Insertion: 09/26/19 Urinary Catheter Time of Insertion: 08:45 Data : 09/30/19 04:30 09/30/19 04:30 A&P Assessment and plan (1) UTI (urinary tract infection): Status: Acute Code(s): N39.0 - Urinary tract infection, site not specified (2) Acute kidney injury: Status: Acute Code(s): N17.9 - Acute kidney failure, unspecified (3) Aortic stenosis: Status: Acute Code(s): I35.0 - Nonrheumatic aortic (valve) stenosis (4) Hyperlipidemia: Status: Acute Code(s): E78.5 - Hyperlipidemia, unspecified (5) Elevated troponin: Status: Acute Code(s): R79.89 - Other specified abnormal findings of blood chemistry (6) CVA (cerebral vascular accident): Status: Acute Code(s): I63.9 - Cerebral infarction, unspecified (7) Hypertension: Status: Acute Code(s): I10 - Essential (primary) hypertension (8) Anemia: Status: Acute Qualifiers: Anemia type: unspecified type Qualified Code(s): D64.9 - Anemia, unspecified Code(s): D64.9 - Anemia, unspecified (9) Atrial fibrillation and flutter: Status: Acute Code(s): I48.91 - Unspecified atrial fibrillation; I48.92 - Unspecified atrial flutter (10) Tachycardia: Status: Acute Code(s): R00.0 - Tachycardia, unspecified Additional A&P Information I think we should continue the beta-heather and calcium channel heather at the current doses. We will have to accept some tachycardia as she is up moving around due to the fact that when we tried to increase the medications she became bradycardic. The only other option would be to place a pacemaker but I think that is not necessary at this point. 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
--- NOTE | 2019-09-30 11:26 | P.PN_ITS ---
Subjective Subjective: Interval history: She states she is doing all right. Denies any pain or discomfort. Breathing is comfortable on low-flow nasal cannula. She denies chest pain or discomfort. Her hands, arms and legs feel stiff. Strength in left arm is significantly better. No trouble with speech. Some persistent discomfort/sharp pain sometimes bothersome to her in the right side with deep breathing, cough, although she has been coughing less. She does not feel it at rest. Vitals/I&O/Wt Last Vital Signs Temp 98.0 F 09/30/19 11:24 Pulse 89 09/30/19 11:24 Resp 29 H 09/30/19 11:24 BP 111/76 09/30/19 11:24 Pulse Ox 95 09/30/19 11:24 09/29/19 09/30/19 09/30/19 22:59 06:59 14:59 Intake Total 180 / 540 210 / 750 240 / 240 Output Total 350 / 350 550 / 900 Balance -170 / 190 -340 / -150 240 / 240 Physical Exam Const: COMMON NORMALS: no apparent distress and oriented x3 HENMT: COMMON NORMALS: oropharynx normal Neck/C-Spine: COMMON NORMALS: no JVD Resp: COMMON NORMALS: normal respiratory effort and clear to auscultation bilaterally AUSCULTATION: clear to auscultation bilaterally Cardio: COMMON NORMALS: no JVD, regular rhythm, S1 normal heart sound, S2 normal heart sound and no murmurs RHYTHM: regular rhythm HEART SOUNDS: S1 normal and S2 normal GI: COMMON NORMALS: normal to inspection, nondistended, normoactive bowel sounds, soft to palpation and non-tender PALPATION: Yes soft Extremity: COMMON NORMALS: no joint enlargement and no pedal edema Neuro: COMMON NORMALS: oriented x3 and moves all extremities OTHER: No discernible a aphasia or dysarthria. Left upper extremity much better. Otherwise she is doing well, although bothered by stiffness in her hands. There is chronic weakness in right lower extremity, reports this is chronic due to arthritis, having difficulty lifting the leg off the bed. Skin: COMMON NORMALS: no rashes or lesions noted GENERAL SKIN EXAM: no rashes or lesions noted Urinary Catheter Management^: Boswell: Cath Placed During This Visit: yes Urethral Indwelling: Yes Reason for Continuing Indwelling Catheter: Accurate Measurement of Urinary O utput in Critically Ill Patients Urinary Catheter Date of Insertion: 09/26/19 Urinary Catheter Time of Insertion: 08:45 Data : 09/30/19 04:30 09/30/19 04:30 A&P Assessment and plan (1) Anemia: Hemoglobin down to 7.8. Still no bowel movement. No other obvious bleeding. Additional bowel regimen. Pending collection of Hemoccult. Off IV fluids. PPI to twice daily. We will monitor through today, if tomorrow further decline, will discuss with surgery regarding possible EGD due to need for chronic anticoagulation. She had EGD and colonoscopy back in 2017. She has possibly moderate aortic stenosis. Her anemia is normocytic, and I am considering given it appears she may have undiagnosed rheumatoid arthritis this may be anemia of chronic disease, although would like to rule out GI bleed given she is on anticoagulation. Will check vitamin B12, folic acid, iron studies, LDH, haptoglobin. Status: Acute Qualifiers: Anemia type: unspecified type Qualified Code(s): D64.9 - Anemia, unspe cified Code(s): D64.9 - Anemia, unspecified (2) Atrial fibrillation and flutter: Her heart rate increases when she moves around. Then settles down if she is at rest. Cardiology recommendations appreciated. For now continue medications as ordered. Status: Acute Code(s): I48.91 - Unspecified atrial fibrillation; I48.92 - Unspecified atrial flutter (3) CVA (cerebral vascular accident): Her speech has been good. There is persistent weakness in the left arm. Chronic weakness in the right lower extremity but this is related to arthritis. CTA neck did not demonstrate surgical disease. Echocardiogram did not demonstrate thrombus. Continue ASA, statin. Continue Eliquis w AFib. Pending placement for rehabilitation at SNF after discharge after CVA, with arthritis, resulting in generalized weakness, functional decline. CK is not elevated. Status: Acute Code(s): I63.9 - Cerebral infarction, unspecified (4) Elevated troponin: Suspected mismatch in demand and supply. Status: Acute Code(s): R79.89 - Other specified abnormal findings of blood chemistry (5) Hypertension: Blood pressure improved Status: Acute Code(s): I10 - Essential (primary) hypertension (6) Hyperlipidemia: Statin. Status: Acute Code(s): E78.5 - Hyperlipidemia, unspecified (7) Acute kidney injury: With gradual improvement. Avoid hypotension. Monitor I&O. Renal ultrasound unremarkable. Avoid hypotension. CK not elevated. Status: Acute Code(s): N17.9 - Acute kidney failure, unspecified (8) Hypotension: Resolved Status: Acute Code(s): I95.9 - Hypotension, unspecified (9) UTI (urinary tract infection): Rocephin. Pansensitive E. coli. Today should be last day of antibiotic. Status: Acute Code(s): N39.0 - Urinary tract infection, site not specified Additional A&P Information Arthritis: Consider consider additional work-up for RA, outpatient follow-up with rheumatology. Joint changes at the hands, symptoms of protracted stiffness are concerning for RA. Eliquis for DVT prophylaxis Attestations Medical Necessity Statement*: Continue admission for assessment and management of recurrent anemia, optimization of rate control for atrial fibrillation with RVR. 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
[2019-09-30 12:38] LABS: Iron 30 ug/dL (37-145); Lactate Dehydrogenase 123 U/L (135-214); Total Iron Binding Capacity 120 mcg/dl; Unsaturated Iron Binding 90 ug/dL (112-347)
[2019-09-30 12:53] LABS: Vitamin B12 226 pg/mL (232-1245)
[2019-09-30] MEDS: polyethylene glycol 3350 Pkt 17 gm PO ×2 (12:55→18:14)
[2019-09-30] MEDS: bisacodyl 10 mg Supp PR (12:56)
[2019-09-30] MEDS: cefTRIAXone 1,000 MG in sodium chloride 0.9% (plus) 50 ML 100 MG IV (12:56)
[2019-09-30] MEDS: magnesium citrate Btl 296 mL PO (12:56)
[2019-09-30 13:00] LABS: Ferritin 1739 ng/mL (15-150)
[2019-09-30 13:07] LABS: Folate Level 4.1 ng/mL (4.8-37.3)
[2019-09-30] MEDS: atorvastatin 40 mg Tablet PO (20:21)
[2019-09-30 20:27] LABS: Hemoglobin 8.8 g/dL (11.5-15.3)
[2019-10-01] VITALS (9 sets, daily range): BP systolic 102–132; BP diastolic 56–89; PULSE 67–104; RESP 17–31; TEMP 36.6–37; O2SAT 91–98
[2019-10-01 04:10] LABS: Basophils # 0.1 10^3/uL (0.0-0.1); Basophils % 0.7 %; Eosinophils # 0.2 10^3/uL (0.0-0.8); Eosinophils % 2.1 %; Hematocrit 28.4 % (37.0-47.0); Hemoglobin 7.9 g/dL (11.5-15.3); Lymphocytes % 13.4 %; Mean Corpuscular HGB Conc 27.8 g/dL (30.0-36.0); Mean Corpuscular Hemoglobin 24.6 pg (28.0-34.0); Mean Corpuscular Volume 88.5 fL (81-99); Mean Platelet Volume 11.1 fL (7.4-10.4); Monocytes # 0.6 10^3/uL (0.2-0.9); Monocytes % 8.2 %; Neutrophils # 5.4 10^3/uL (1.8-7.7); Neutrophils % 75.3 %; Nucleated Red Blood Cells % 0 %; Platelet Count 232 10^3/cmm (130-400); Red Blood Count 3.21 10^6/uL (4.1-5.3); Red Cell Distribution Width 17.2 % (12.1-15.1); White Blood Count 7.2 10^3/uL (4.0-10.0)
[2019-10-01 04:18] LABS: Anion Gap 16.4 (5-19); Blood Urea Nitrogen 26 mg/dL (8-23); Calcium 9.1 mg/dL (8.5-10.5); Carbon Dioxide 20 mmol/L (22-29); Chloride 110 mmol/L (98-107); Creatinine Clr Calc Pharmacy 52.8144; Glucose 100 mg/dL (65-115); Osmolality Calculated 291 mOsm/kg (285-295); Potassium 4.4 mmol/L (3.5-5.1); Sodium 142 mmol/L (136-145)
--- NOTE | 2019-10-01 08:31 | P.PN_ITS ---
Subjective Subjective: Interval history: Krystal is about the same. She still does have some episodes of very fast heart rate. She shows no evidence of congestive heart failure. Blood pressures have been quite stable. Urine output yesterday just short of 1 L. Hemoglobin has dropped again to 7.9 g/dL. Creatinine continues to slowly decrease now down to 1.2. She is being treated for and E. c myke urinary tract infection. Hospitalist is giving consideration to endoscopy for the anemia. Medications: Reviewed: Yes Vitals/I&O/Wt Last Vital Signs Temp 98.3 F 10/01/19 04:57 Pulse 104 H 10/01/19 07:44 Resp 31 H 10/01/19 07:44 BP 132/73 10/01/19 07:44 Pulse Ox 93 10/01/19 07:44 09/30/19 10/01/19 10/01/19 22:59 06:59 14:59 Intake Total 240 / 720 150 / 870 Output Total 450 / 450 501 / 951 Balance -210 / 270 -351 / -81 Physical Exam Narrative: EXAM NARRATIVE: GENERAL: She seems comfortable at rest. HEENT: Exam within normal limits. NECK: Supple without jugular vein distention. The carotid upstroke is normal without bruits. BACK: Exam normal. LUNGS: Clear. HEART: Irregular rate and rhythm with tachycardia ABDOMEN: Benign without organomegaly or tenderness. EXTREMITIES: No edema. NEUROLOGIC: Exam normal. SKIN: Unremarkable. Urinary Catheter Management^: Boswell: Cath Placed During This Visit: yes Urethral Indwelling: Yes Reason for Continuing Indwelling Catheter: Assist Healing of Perineal & Sacral Wounds- Incontinent Patients Urinary Catheter Date of Insertion: 09/26/19 Urinary Catheter Time of Insertion: 08:45 Data : 10/01/19 03:22 10/01/19 03:22 Micro: Microbiology 09/30/19 19:50 Occult Blood (FIT) - Final Stool A&P Assessment and plan (1) UTI (urinary tract infection): Status: Acute Code(s): N39.0 - Urinary tract infection, site not specified (2) Acute kidney injury: Status: Acute Code(s): N17.9 - Acute kidney failure, unspecified (3) Aortic stenosis: Status: Acute Code(s): I35.0 - Nonrheumatic aortic (valve) stenosis (4) Hyperlipidemia: Status: Acute Code(s): E78.5 - Hyperlipidemia, unspecified (5) Elevated troponin: Status: Acute Code(s): R79.89 - Other specified abnormal findings of blood chemistry (6) CVA (cerebral vascular accident): Status: Acute Code(s): I63.9 - Cerebral infarction, unspecified (7) Hypertension: Status: Acute Code(s): I10 - Essential (primary) hypertension (8) Anemia: Status: Acute Qualifiers: Anemia type: unspecified type Qualified Code(s): D64.9 - Anemia, unspecified Code(s): D64.9 - Anemia, unspecified (9) Atrial fibrillation and flutter: Status: Acute Code(s): I48.91 - Unspecified atrial fibrillation; I48.92 - Unspecified atrial flutter (10) Tachycardia: Status: Acute Code(s): R00.0 - Tachycardia, unspecified Additional A&P Information Krystal is stable. The concern is bleeding causing the anemia. She is not getting any getting any excess IV fluids. Rather than increasing her calcium channel heather I am going to increase the beta-heather to see if we can get the heart rate down a little bit. Otherwise, her cardiac status is stable. Should she need endoscopy the anticoagulant can be stopped for 48 hours. 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
[2019-10-01] MEDS: levothyroxine 100 mcg Tablet 200 MCG PO (09:12)
[2019-10-01] MEDS: polyethylene glycol 3350 Pkt 17 gm PO ×2 (09:12→17:38)
[2019-10-01] MEDS: pantoprazole DR 40 mg Tablet PO ×2 (09:13→17:38)
[2019-10-01] MEDS: sennosides-docusate Tablet 2 TAB PO ×2 (09:13→17:38)
[2019-10-01] MEDS: apixaban 5 mg Tablet PO (09:13)
[2019-10-01] MEDS: metoprolol tartrate 50 mg Tablet 100 MG PO ×2 (09:13→17:38)
[2019-10-01] MEDS: aspirin 81 mg EC Tablet PO (09:13)
--- NOTE | 2019-10-01 10:25 | PC.SOCIAL ---
IMM Updated Updated pt on Pg 2 IMM. Pt verbally understands. No questions voiced. Provided a copy to pt & left on pt's bedside table. Signed, dated, & timed original in chart.
[2019-10-01] MEDS: cefTRIAXone 1,000 MG in sodium chloride 0.9% (plus) 50 ML 100 MG IV (12:04)
[2019-10-01] MEDS: apixaban 5 mg Tablet 2.5 MG PO (17:38)
[2019-10-01] MEDS: atorvastatin 40 mg Tablet PO (20:25)
--- NOTE | 2019-10-01 20:43 | P.PN_ITS ---
Subjective Subjective: Interval history: Denies dizziness or presyncopal symptoms. No shortness of breath. No chest pain. Still feeling stiff in her joints. Vitals/I&O/Wt Last Vital Signs Temp 98.6 F 10/01/19 20:00 Pulse 67 10/01/19 20:00 Resp 27 H 10/01/19 20:00 BP 102/56 10/01/19 20:00 Pulse Ox 96 10/01/19 20:00 10/01/19 10/01/19 10/01/19 06:59 14:59 22:59 Intake Total 150 / 920 480 / 480 240 / 720 Output Total 501 / 951 Balance -351 / -31 480 / 480 240 / 720 Physical Exam Const: COMMON NORMALS: no apparent distress and oriented x3 HENMT: COMMON NORMALS: oropharynx normal Neck/C-Spine: COMMON NORMALS: no JVD Resp: COMMON NORMALS: normal respiratory effort and clear to auscultation bilaterally AUSCULTATION: clear to auscultation bilaterally Cardio: COMMON NORMALS: no JVD, regular rhythm, S1 normal heart sound, S2 normal heart sound and no murmurs RHYTHM: regular rhythm HEART SOUNDS: S1 normal and S2 normal GI: COMMON NORMALS: normal to inspection, nondistended, normoactive bowel sounds, soft to palpation and non-tender PALPATION: Yes soft Extremity: COMMON NORMALS: no joint enlargement and no pedal edema Neuro: COMMON NORMALS: oriented x3 and moves all extremities OTHER: No discernible a aphasia or dysarthria. Left upper extremity much better. Otherwise she is doing well, although bothered by stiffness in her hands. There is chronic weakness in right lower extremity, reports this is chronic due to arthritis, having difficulty lifting the leg off the bed. Skin: COMMON NORMALS: no rashes or lesions noted GENERAL SKIN EXAM: no rashes or lesions noted Urinary Catheter Management^: Boswell: Cath Placed During This Visit: yes Urethral Indwelling: Yes Reason for Continuing Indwelling Catheter: Assist Healing of Perineal & Sacral Wounds- Incontinent Patients Urinary Catheter Date of Insertion: 09/26/19 Urinary Catheter Time of Insertion: 08:45 Data : 10/01/19 03:22 10/01/19 03:22 Micro: Microbiology 09/30/19 19:50 Occult Blood (FIT) - Final Stool A&P Assessment and plan (1) Anemia: Hemoglobin 7.9 this morning, similar to yesterday morning's value. Yesterday had apparently a bowel movement, but with some blood in there from hemorrhoids. Positive Hemoccult. 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 Discussed that we will decrease dose of anticoagulation and start treatment for hemorrhoids with suppositories and continued bowel regimen. In case of persistent bleeding she is agreeable to involving surgery and consideration for additional endoscopic evaluation. In case no further bleeding and blood count remains stable may discharge to halfway tomorrow. Discussed with her [id number] as well who is in agreement with plan. Replace vitamin B12, folic acid. Iron deficiency not apparent. Overall her anemia is likely combination chronic disease, with what appears to be vitamin deficiency, and perhaps mild blood loss with hemorrhoids. Status: Acute Qualifiers: Anemia type: unspecified type Qualified Code(s): D64.9 - Anemia, unspecified Code(s): D64.9 - Anemia, unspecified (2) Atrial fibrillation and flutter: Heart rate somewhat variable, this morning elevated somewhat even at rest. Due to this metoprolol dose increased to 100 mg twice daily. Continues verapamil dose. Appreciate cardiology recommendations. Status: Acute Code(s): I48.91 - Unspecified atrial fibrillation; I48.92 - Unspecified atrial flutter (3) CVA (cerebral vascular accident): Her speech has been good. Power is symmetrical. Chronic stiffness due to arthritis. Chronic weakness in the right lower extremity but this is related to arthritis. CTA neck did not demonstrate surgical disease. Echocardiogram did not demonstrate thrombus. Continue ASA, statin. Continue Eliquis w AFib. Pending placement for rehabilitation at SNF after discharge after CVA, with arthritis, resulting in generalized weakness, functional decline. CK is not elevated. Status: Acute Code(s): I63.9 - Cerebral infarction, unspecified (4) Elevated troponin: Suspected mismatch in demand and supply. Status: Acute Code(s): R79.89 - Other specified abnormal findings of blood chemistry (5) Hypertension: Blood pressure improved Status: Acute Code(s): I10 - Essential (primary) hypertension (6) Hyperlipidemia: Statin. Status: Acute Code(s): E78.5 - Hyperlipidemia, unspecified (7) Acute kidney injury: With gradual improvement. Avoid hypotension. Monitor I&O. Renal ultrasound unremarkable. Avoid hypotension. CK not elevated. Status: Acute Code(s): N17.9 - Acute kidney failure, unspecified (8) Hypotension: Resolved Status: Acute Code(s): I95.9 - Hypotension, unspecified (9) UTI (urinary tract infection): Rocephin. Pansensitive E. coli. Today should be last day of antibiotic. Status: Acute Code(s): N39.0 - Urinary tract infection, site not specified Additional A&P Information Arthritis: Consider consider additional work-up for RA, outpatient follow-up with rheumatology. Joint changes at the hands, symptoms of protracted stiffness are concerning for RA. Eliquis for DVT prophylaxis Attestations Medical Necessity Statement*: Continue assessment and optimization of medical management for acute on chronic anemia, difficult to control A. fib with RVR. 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
--- NOTE | 2019-10-01 20:58 | XR_ITS ---
WS: [id number] XR knee RT 3V* [id number] REASON FOR EXAM: pain FINDINGS: The medial and lateral meniscus spaces are markedly narrowed particularly the lateral menis cus. There is spurring seen off the lateral condyle of the femur. The patella femur articulation show degenerate changes. The patella tibial space was normal. Heavy arteriosclerotic changes of the popliteal vessels. XR/XR knee RT 3V* [id number] IMPRESSION: Moderately advanced osteoarthritic changes of the right knee.
[2019-10-02] VITALS (7 sets, daily range): BP systolic 95–149; BP diastolic 44–82; PULSE 56–121; RESP 16–26; TEMP 36.6–36.8; O2SAT 90–97
[2019-10-02 04:40] LABS: Basophils % 0.6 %; Eosinophils # 0.2 10^3/uL (0.0-0.8); Eosinophils % 2.1 %; Hematocrit 28.2 % (37.0-47.0); Hemoglobin 7.8 g/dL (11.5-15.3); Lymphocytes % 13.2 %; Mean Corpuscular HGB Conc 27.7 g/dL (30.0-36.0); Mean Corpuscular Hemoglobin 24.1 pg (28.0-34.0); Mean Platelet Volume 11.1 fL (7.4-10.4); Monocytes # 0.8 10^3/uL (0.2-0.9); Monocytes % 11.2 %; Neutrophils # 5.3 10^3/uL (1.8-7.7); Neutrophils % 72.3 %; Nucleated Red Blood Cells % 0 %; Platelet Count 232 10^3/cmm (130-400); Red Blood Count 3.24 10^6/uL (4.1-5.3); Red Cell Distribution Width 17.5 % (12.1-15.1); White Blood Count 7.3 10^3/uL (4.0-10.0)
[2019-10-02 05:08] LABS: Anion Gap 16.6 (5-19); Blood Urea Nitrogen 24 mg/dL (8-23); Calcium 9.4 mg/dL (8.5-10.5); Carbon Dioxide 22 mmol/L (22-29); Chloride 107 mmol/L (98-107); Creatinine Clr Calc Pharmacy 52.8144; Glucose 100 mg/dL (65-115); Osmolality Calculated 289 mOsm/kg (285-295); Potassium 4.6 mmol/L (3.5-5.1); Sodium 141 mmol/L (136-145)
[2019-10-02] MEDS: metoprolol tartrate 50 mg Tablet 100 MG PO (09:29)
[2019-10-02] MEDS: aspirin 81 mg EC Tablet PO (09:29)
[2019-10-02] MEDS: levothyroxine 100 mcg Tablet 200 MCG PO (09:29)
[2019-10-02] MEDS: cyanocobalamin 1,000 mcg Tablet 1000 MCG PO (09:29)
[2019-10-02] MEDS: apixaban 5 mg Tablet 2.5 MG PO (09:29)
[2019-10-02] MEDS: pantoprazole DR 40 mg Tablet PO (09:29)
[2019-10-02] MEDS: folic acid 1 mg Tablet PO (09:29)
--- NOTE | 2019-10-02 09:42 | PM.PN ---
Subjective Subjective: Interval history: Last 24 hours: Patient's heart rate running high this am. She received her medications at 9 AM and then at 6 PM and went entire night without any medications, hence her heart rate prior to receiving her medications this morning was running high. She denies having any symptoms. Hb 7.8 today. Medications: Reviewed: Yes Medication Review Details: Current Medications Acetaminophen (Tylenol) 650 mg PO Q6H PRN PRN Reason: Mild/Mod Pain Or Temp >/= 101 Last Admin: 10/02/19 11:19 Dose: 650 mg Documented by: Apixaban (Eliquis) 2.5 mg PO BID [facility] Last Admin: 10/02/19 09:29 Dose: 2.5 mg Documented by: Aspirin (Aspirin Ec) 81 mg PO DAILY [facility] Last Admin: 10/02/19 09:29 Dose: 81 mg Documented by: Atorvastatin Calcium (Lipitor) 40 mg PO BEDTIME [facility] Last Admin: 10/01/19 20:25 Dose: 40 mg Documented by: Cyanocobalamin (Vitamin B-12) 1,000 mcg PO DAILY [facility] Last Admin: 10/02/19 09:29 Dose: 1,000 mcg Documented by: Folic Acid (Folic Acid) 1 mg PO DAILY [facility] Last Admin: 10/02/19 09:29 Dose: 1 mg Documented by: Hydrocortisone Acetate (Anucort-Hc Supp) 25 mg [place] BID [facility] Last Admin: 10/02/19 09:25 Dose: 25 mg Documented by: Ceftriaxone Sodium 1,000 mg/ (Sodium Chloride) 50 mls @ 100 mls/hr IV Q24H [facility]; Protocol Last Infusion: 10/02/19 11:21 Dose: Infused Documented by: Lanolin (Lanolin Oint) 1 applic TOPICAL PRN PRN PRN Reason: DRYNESS Last Admin: 09/27/19 18:01 Dose: 1 applic Documented by: Levothyroxine Sodium (Synthroid) 200 mcg PO DAILY [facility] Last Admin: 10/02/19 09:29 Dose: 200 mcg Documented by: Metoprolol Tartrate (Lopressor) 100 mg PO BID [facility] Last Admin: 10/02/19 09:29 Dose: 100 mg Documented by: Ondansetron HCl (Zofran) 4 mg IVP Q8H PRN PRN Reason: vomiting, or N/V if npo Last Admin: 09/28/19 12:27 Dose: 4 mg Documented by: Pantoprazole Sodium (Protonix) 40 mg PO BID [facility] Last Admin: 10/02/19 09:29 Dose: 40 mg Documented by: Polyethylene Glycol (Miralax) 17 gm PO BID [facility] Last Admin: 10/02/19 09:29 Dose: Not Given Documented by: Senna/Docusate Sodium (Senna-S) 2 tab PO BID [facility] Last Admin: 10/02/19 09:30 Dose: Not Given Documented by: Verapamil HCl (Verapamil) 40 mg PO TID [facility] Last Admin: 10/02/19 09:29 Dose: 40 mg Documented by: Vitals/I&O/Wt Last Vital Signs Temp 97.9 F 10/02/19 07:37 Pulse 121 H 10/02/19 07:37 Resp 24 H 10/02/19 07:37 BP 149/82 10/02/19 07:37 Pulse Ox 96 10/02/19 07:37 10/01/19 10/02/19 10/02/19 22:59 06:59 14:59 Intake Total 340 / 820 150 / 970 240 / 240 Output Total 900 / 900 Balance 340 / 820 -750 / 70 240 / 240 Physical Exam Const: COMMON NORMALS: no apparent distress, oriented x3 and alert GENERAL APPEARANCE: cooperative, comfortable, well kempt and well hydrated Neck/C-Spine: COMMON NORMALS: no JVD Resp: COMMON NORMALS: clear to auscultation bilaterally EFFORT & INSPECTION: No respiratory distress AUSCULTATION: clear to auscultation bilaterally, no crackles, no rales, no rhonchi and no wheezes Cardio: COMMON NORMALS: no JVD and peripheral pulses 2+ throughout PALPATION: normal PMI RHYTHM: abnormal rhythm irregularly irregular HEART SOUNDS: no click, no gallops and no murmurs BRUITS: no carotid bruits PERIPHERAL PULSES: pulses 2+ throughout and dorsalis pedis pulses present Extremity: GENERAL: No clubbing, No cyanosis, Yes edema and No pallor Neuro: COMMON NORMALS: oriented x3, CN's II-XII intact bilaterally and no focal motor deficits SENSORIUM/ORIENTATION: Yes alert Psych: COMMON NORMALS: thought process normal and speech normal APPEARANCE: Yes well kempt SPEECH: Yes normal speech THOUGHT PROCESS: normal thought process Urinary Catheter Management^: Boswell: Cath Placed During This Visit: yes Urethral Indwelling: Yes Reason for Continuing Indwelling Catheter: Assist Healing of Perineal & Sacral Wounds- Incontinent Patients Urinary Catheter Date of Insertion: 09/26/19 Urinary Catheter Time of Insertion: 08:45 Data : 10/02/19 03:57 10/02/19 03:57 A&P Assessment and plan (1) Atrial fibrillation and flutter: On rate control strategy. Continue metoprolol verapamil and low-dose Eliquis. -Rate fairly controlled with intermittent high heart rate with ambulation. Stable to be discharged from cardiac standpoint. Status: Acute Code(s): I48.91 - Unspecified atrial fibrillation; I48.92 - Unspecified atrial flutter (2) Anemia: Hemoglobin 7.8 today. It was 7.9 yesterday. No active bleeding. Status: Acute Qualifiers: Anemia type: unspecified type Qualified Code(s): D64.9 - Anemia, unspecified Code(s): D64.9 - Anemia, unspecified (3) Hyperlipidemia: Status: Acute Qualifiers: Hyperlipidemia type: unspecified Qualified Code(s): E78.5 - Hyperlipidemia, unspecified Code(s): E78.5 - Hyperlipidemia, unspecified (4) Aortic stenosis: Mild aortic stenosis Status: Acute Qualifiers: Cardiac valve disease etiology: etiology unspecified Qualified Code(s): I35.0 - Nonrheumatic aortic (valve) stenosis Code(s): I35.0 - Nonrheumatic aortic (valve) stenosis (5) CVA (cerebral vascular accident): Status: Acute Qualifiers: CVA mechanism: unspecified Qualified Code(s): I63.9 - Cerebral infarction, unspecified Code(s): I63.9 - Cerebral infarction, unspecified (6) Hypertension: Status: Acute Qualifiers: Hypertension type: essential hypertension Qualified Code(s): I10 - Essential (primary) hypertension Code(s): I10 - Essential (primary) hypertension Additional A&P Information Arthritis Attestations Medical Necessity Statement*: Discharge planning as per primary team. Coding Level of Care Code Acute [place] Clerk for [facility] [place] Fwd Diagnoses Atrial fibrillation and flutter I48.91; I48.92 Anemia D64.9 Anemia type: unspecified type Hyperlipidemia E78.5 Hyperlipidemia type: unspecified Aortic stenosis I35.0 Cardiac valve disease etiology: etiology unspecified CVA (cerebral vascular accident) I63.9 CVA mechanism: unspecified Hypertension I10 Hypertension type: essential hypertension
[2019-10-02] MEDS: cefTRIAXone 1,000 MG in sodium chloride 0.9% (plus) 50 ML 100 MG IV (10:36)
[2019-10-02] MEDS: acetaminophen 325 mg Tablet 650 MG PO (11:19)
--- NOTE | 2019-10-02 13:52 | P.DS_ITS ---
Discharge Providers Date of Admission: 09/22/19 12:16 Date of Discharge: October 02, 2019 Attending Provider at Admission: Artur Sánchez MD Attending Provider at Discharge: Chidi Jackson Primary Care Provider: Kristian Rincon DO Diagnoses at Discharge Discharge Diagnosis (1) Atrial fibrillation and flutter: Status: Acute (2) Anemia: Status: Acute Qualifiers: Anemia type: unspecified type Qualified Code(s): D64.9 - Anemia, u nspecified (3) Hyperlipidemia: Status: Acute Qualifiers: Hyperlipidemia type: unspecified Qualified Code(s): E78.5 - Hyperlipidemia, unspecified (4) Aortic stenosis: Status: Acute Qualifiers: Cardiac valve disease etiology: etiology unspecified Qualified Code(s): I35.0 - Nonrheumatic aortic (valve) stenosis (5) CVA (cerebral vascular accident): Status: Acute Qualifiers: CVA mechanism: unspecified Qualified Code(s): I63.9 - Cerebral infarction, unspecified (6) Hypertension: Status: Acute Qualifiers: Hypertension type: essential hypertension Qualified Code(s): I10 - Essential (primary) hypertension Reason for Visit Reason for Visit: Reason For Visit: [facility] Hospital Course Hospital Course: 74-year-old lady was admitted for assessment management of acute CVA with a aphasia, dysarthria, confusion, with noted new atrial flutter. He was started on aspirin, anticoagulation, statin. Eventually also identified to have UTI for which received a course of treatment with Rocephin. Her hospitalization was complicated by acute kidney injury on chronic kidney disease, although with gradual improvement in creatinine. With difficult to control atrial fibrillation with episodes of RVR, and intermittently slow heart rates with intensive control. Her heart rates become significantly elevated with exertion, sometimes up into the 150s but for the most part do slowly come back to 80s-90s. Heart rates do also rise in the morning after she wakes up before receiving her medications. Due to this we will try to schedule her cardiac medications early in the morning. While in the hospital also noted to have worsening anemia, required 1 unit. BC transfusion. Anemia appears to be multifactorial, anemia chronic disease, B12, folic acid deficiency anemia, and possible small contribution with acute blood loss anemia with positive Hemoccult, bleeding hemorrhoids while on anticoagulation. Due to this anticoagulation dose was decreased to 2.5 mg. Started on treatment for hemorrhoids. Should avoid constipation which is a recurrent problem for her. She was started on Protonix empirically. Hemoglobin has stabilized. In case of recurrence of bleeding, surgical consultation may be necessary for additional endoscopy evaluation. Last ablation she reports was in 2017 both upper and lower. During hospitalization she has also been complaining of stiffness in her joints, hands, and get concern for possible underlying rheumatoid arthritis, also contributing to her anemia of chronic disease, please consider additional rheumatologic evaluation. Physical Exam Const: COMMON NORMALS: no apparent distress and oriented x3 HENMT: COMMON NORMALS: oropharynx normal Neck/C-Spine: COMMON NORMALS: no JVD Resp: COMMON NORMALS: normal respiratory effort and clear to auscultation bilaterally AUSCULTATION: clear to auscultation bilaterally Cardio: COMMON NORMALS: no JVD, regular rhythm, S1 normal heart sound, S2 normal heart sound and no murmurs RHYTHM: regular rhythm HEART SOUNDS: S1 normal and S2 normal GI: COMMON NORMALS: normal to inspection, nondistended, normoactive bowel sounds, soft to palpation and non-tender PALPATION: Yes soft Extremity: COMMON NORMALS: no joint enlargement and no pedal edema Neuro: COMMON NORMALS: oriented x3 and moves all extremities OTHER: No discernible aphasia or dysarthria. Left upper extremity much better. Otherwise she is doing well, although bothered by stiffness in her hands. There is chronic weakness in right lower extremity, reports this is chronic due to arthritis, having difficulty lifting the leg off the bed. Skin: COMMON NORMALS: no rashes or lesions noted GENERAL SKIN EXAM: no rashes or lesions noted Urinary Catheter Management^: Boswell: Cath Placed During This Visit: yes Urethral Indwelling: Yes Reason for Continuing Indwelling Catheter: Assist Healing of Perineal & Sacral Wounds- Incontinent Patients Urinary Catheter Date of Insertion: 09/26/19 Urinary Catheter Time of Insertion: 08:45 Discharge Data Data Completed and Pending: Completed Studies During Hospitalization Category Date Time Status CT abdomen pelvis wo con [id number] Rout ine Cat Scan 09/26/19 11:[address] angio headneck * [id number] Rout ine Cat Scan 09/21/19 16:[address] head wo con* [id number] Stat Cat Scan 09/21/19 11:19 Completed XR chest 1V renay ble [id number] Stat Exams 09/21/19 11:19 Completed XR knee RT 3V* [id number] Routine Exams 10/01/19 20:58 Completed CV echo complete* [id number] Routine Ultrasound 09/21/19 16:49 Completed US renal BI with bladder Routine Ultrasound 09/26/19 08:39 Completed Pending at discharge Category Date Time Status BMP [Basic [employer] lic Panel] AM LABS Lab 10/03/19 04:00 Ordered Complete Blood Co unt w/Auto AM LABS Lab 10/03/19 04:00 Ordered Labs from last 24 hours 10/02/19 10/02/19 03:57 03:57 WBC 7.3 RBC 3.24 L Hgb 7.8 L Hct 28.2 L MCV 87.0 MCH 24.1 L MCHC 27.7 L RDW 17.5 H Plt Count 232 MPV 11.1 H Neut % (Auto) 72.3 Lymph % (Auto) 13.2 [place] % (Auto) 11.2 Eos % (Auto) 2.1 Baso % (Auto) 0.6 Neut # (Auto) 5.3 Lymph # (Auto) 1.0 [place] # (Auto) 0.8 Eos # (Auto) 0.2 Baso # (Auto) 0.0 Nucleated RBC % (a uto) 0 Nucleated RBCs # 0.0 Sodium 141 Potassium 4.6 Chloride 107 Carbon Dioxide 22 Anion Gap 16.6 BUN 24 H Creatinine 1.2 H Glucose 100 Calculated Osmolal ity 289 Calcium 9.4 Vitals: Last Vital Signs Temp 97.9 F 10/02/19 07:37 Pulse 56 L 10/02/19 11:18 Resp 26 H 10/02/19 11:18 BP 95/44 10/02/19 11:18 Pulse Ox 90 10/02/19 11:18 Discharge Plan Discharge Patient Disposition: Xfer SNF Condition: Stable Prescriptions: New sennosides-docusate sodium 8.6-50 mg Tablet 2 tab PO BID Qty: 60 RF: 0 pantoprazole 40 mg Tablet,Delayed Release (Dr/Ec) 40 mg PO BID Qty: 60 RF: 0 polyethylene glycol 3350 [Miralax] 17 gram Powder In Packet 17 g PO BID Qty: 60 RF: 0 Eliquis 5 mg Tablet 2.5 mg PO BID Qty: 30 RF: 0 cyanocobalamin (vitamin B-12) [Vitamin B-12] 1,000 mcg Tablet 1,000 mcg PO DAILY Qty: 14 RF: 0 atorvastatin 40 mg Tablet 40 mg PO BEDTIME Qty: 30 RF: 0 verapamil 40 mg Tablet 40 mg PO TID Qty: 90 RF: 0 metoprolol tartrate 50 mg Tablet 100 mg PO BID Qty: 120 RF: 0 hydrocortisone acetate [Anucort-HC] 25 mg Suppository 25 mg [place] BID Qty: 12 RF: 0 folic acid 1 mg Tablet 1 mg PO DAILY Qty: 30 RF: 0 Continued levothyroxine 200 mcg tablet 200 mcg PO DAILY RF: 0 aspirin 81 mg Tablet,Chewable 81 mg PO DAILY RF: 0 Discontinued DILT-XR 240 mg capsule,ext.rel 24h degradable 240 mg PO DAILY RF: 0 metoprolol succinate 100 mg tablet extended release 24 hr 100 mg PO DAILY RF: 0 pantoprazole 40 mg tablet,delayed release (DR/EC) 40 mg PO DAILY RF: 0 hydrochlorothiazide 25 mg tablet 25 mg PO DAILY RF: 0 lovastatin 20 mg tablet 20 mg PO DAILY RF: 0 lisinopril 40 mg tablet 40 mg PO DAILY RF: 0 Discharge Orders: Discharge Order (Routine); Ordered 10/02/19 Ordered By: Chidi Jackson Other Ambulatory Orders: Complete Blood Count w/Auto (Routine) Timeframe: 3 Days Location: Determined by Patient Ordered By: Chidi Jackson Referrals: [facility] [Outside] Martin Barnes MD [Physician] - 1 month Lashae Rogers FNP [Nurse Practitioner] - 7-10 days Kristian Rincon DO [Primary Care Provider] - 4-7 days [facility] [Provider Group] - 4-7 days (Stroke) Discharge Diet: Cardiac Discharge Activity: Increase activity as tolerated and As per PT/OT instructions Activity Restrictions/Additional Instructions: Add fiber to meals. Avoid constipation. In case of recurrence of bleeding from hemorrhoids refer to surgery for of possible blood loss component of her anemia assessment. Please refer for follow-up with rheumatology regarding concern for possible rheumatoid arthritis. Continue physical therapy for deconditioning. Her heart rates may fluctuate, and sometimes do get up fairly high into the 140s-150s with exertion, however, most of time due decreased with rest. Please give her metoprolol doses early in the morning to provide control when she wakes up and starts to become active. Avoid any NSAIDs due to acute kidney injury on chronic kidney disease. 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
== END 2019-10-02 17:00 | disposition skilled nursing facility (03) | DRG 65 ==
LOC: ER 14:33 → CSU 16:21
PROVIDERS: Internal Medicine Cardiovascular Disease; Student in an Organized Health Care Education/Training Program; Admitting Provider Internal Medicine; Emergency Provider Emergency Medicine; Family Provider Electrodiagnostic Medicine; PCP Electrodiagnostic Medicine; Visit Provider Internal Medicine
DX: I63.9 Cerebral infarction, unspecified (principal); I48.92 Unspecified atrial flutter; N17.9 Acute kidney failure, unspecified; N39.0 Urinary tract infection, site not specified; D62 Acute posthemorrhagic anemia; R29.702 NIHSS score 2; I10 Essential (primary) hypertension; E78.5 Hyperlipidemia, unspecified; I48.91 Unspecified atrial fibrillation; R47.01 Aphasia; R47.81 Slurred speech; E03.9 Hypothyroidism, unspecified; K21.9 Gastro-esophageal reflux disease without esophagitis; Z86.711 Personal history of pulmonary embolism; N18.2 Chronic kidney disease, stage 2 (mild); I12.9 Hypertensive chronic kidney disease with stage 1 through stage 4 chronic kidney disease, or unspecified chronic kidney disease; Z88.0 Allergy status to penicillin; Z79.82 Long term (current) use of aspirin; Z79.890 Hormone replacement therapy; Z79.899 Other long term (current) drug therapy; I35.0 Nonrheumatic aortic (valve) stenosis; R79.89 Other specified abnormal findings of blood chemistry; I95.9 Hypotension, unspecified; R47.1 Dysarthria and anarthria; B96.20 Unspecified Escherichia coli [E. coli] as the cause of diseases classified elsewhere; M17.11 Unilateral primary osteoarthritis, right knee; D51.9 Vitamin B12 deficiency anemia, unspecified; K64.9 Unspecified hemorrhoids; D52.9 Folate deficiency anemia, unspecified
CPT/HCPCS: 12345; 36415; 36416; 36430; 36600; 51702; 70450; 70496; 70498; 71045; 73562; 74176; 76770; 76857; 80048; 80053; 80061; 80162; 81001; 81003; 82274; 82550; 82570; 82607; 82728; 82746; 82810; 82962; 83010; 83540; 83550; 83615; 84443; 84484; 84540; 85014; 85018; 85025; 85610; 85730; 86850; 86900; 87077; 87086; 87186; 93005; 93306; 96360; 96372; 96375; 97110; 97112; 97116; 97161; 97166; 97530; 97535; 99284; G0378; J0696; J1160; J1650; J2405; J3490; J7030; J7040; P9016; Q9967

== ENCOUNTER 2019-11-16 09:24 | Outpatient (CLI) | payer OTHER, SELFPAY ==
[2019-11-16] VITALS (9 sets, daily range): BP systolic 119–154; BP diastolic 84–93; PULSE 105–120; RESP 17–95; TEMP 36.4–36.7; O2SAT 97–100; BMI 34.2
--- NOTE | 2019-11-16 12:41 | PC.NURSE ---
lab called to verify 2 units of blood ordered with pt hemoglobin being 8.1. dr hernandez called and asked nurse to verify with primary care of pt. dr kinney called and verbally ordered only one unit with the hemoglobin of 8.1. lab notified of the order change.
--- NOTE | 2019-11-16 15:28 | PC.NURSE ---
pt in wheelchair during unit of blood. alert and orientated X3. vitals stable. no complaints of shortness of breath.
== END 2019-11-16 15:40 | disposition home or self-care (01) ==
LOC: OPS 09:36 → MEDSURG 11-22 10:10
PROVIDERS: Family Provider Electrodiagnostic Medicine; PCP Electrodiagnostic Medicine; Visit Provider Internal Medicine
DX: D64.9 Anemia, unspecified (principal)
CPT/HCPCS: 36430; 86850; 86900; 86920; P9016

== ENCOUNTER 2020-05-24 14:04 | Inpatient (IN) | payer MEDICARE, OTHER, MEDICAID, SELFPAY ==
[2020-05-24] VITALS (7 sets, daily range): BP systolic 95–123; BP diastolic 51–84; PULSE 53–101; RESP 18–36; TEMP 36.8–36.9; O2SAT 91–100; BMI 39.5
--- NOTE | 2020-05-24 14:20 | XRR_ITS ---
PROCEDURE INFORMATION: Exam: XR Chest, 1 View Exam date and time: 05/24/2020 3:35 PM Age: 74 years old Clinical indication: Shortness of breath and other: Syncope; Patient HX: Weakness, SOB, right shoulder pain, nausea TECHNIQUE: Imaging protocol: XR of the chest Views: 1 view. COMPARISON: CR XR chest 1V portable [id number] 09/21/2019 11:21 AM FINDINGS: Lungs: Unremarkable. No consolidation. Pleural space: Unremarkable. No pleural effusion. No pneumothorax. Heart/Mediastinum: Unremarkable. No cardiomegaly. Bones/joints: Unremarkable. No interval changes are seen comparing to prior examination XR/XR chest 1V portable [id number] IMPRESSION: No acute findings.
--- NOTE | 2020-05-24 14:21 | ECG_ITS ---
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 Measurements Intervals [place] Rate: 73 P: LA: -1 QRS: -36 QRSD: 34 T: 0 QT: 122 QTc: 134 Interpretive Statements ATRIAL FIBRILLATION/ATRIAL FLUTTER LEFT AXIS DEVIATION [QRS AXIS < -30] LOW QRS VOLTAGE IN EXTREMITY LEADS [QRS DEFLECTION < 0.5 mV IN LIMB LEADS] POSSIBLE ANTERIOR MYOCARDIAL INFARCTION , PROBABLY OLD [30 ms Q WAVE IN V3/V4, OR R < 0.2 mV IN V4] Compared to ECG 09/21/2019 21:17:06 Supraventricular rhythm now present Left-axis deviation now present Low QRS voltage now present Myocardial infarct finding now present Atrial fibrillation no longer present Right bundle-branch block no longer present Electronically Signed On 05-25-2020 20:24:04 CDT by Lopez Farley M.D. [email or web address]/store/[id number] faria
--- NOTE | 2020-05-24 14:57 | W.ED.SOB ---
HPI - SOB/Dyspnea General: Chief Complaint: Shortness of Breath/Dyspnea Stated Complaint: WEAKNESS, R SHOULDER PAIN, NAUSEA, SOB Time Seen by Provider: 05/24/20 14:36 History of Present Illness: HPI Narrative: 74-year-old female presents to the emergency room with complaints of shortness of breath oxygen sats are in the low 80s. With nasal cannula at 5 to 6 L/min she only is in the upper 80s who switched to a normal. high flow nasal cannula she lives at [place] she was diagnosed with Covid sometime ago she does not know the exact date. She reports she has been off her quarantine for 2 weeks ago respiratory difficulty started an hour prior to arrival here. He also had some right shoulder pain. MD elicited complaint: shortness of breath and cough Pertinent past history: congestive heart failure Onset (ago): minute(s) Context: recent illness Timing: constant Severity: severe Exacerbating factors: exertion and coughing Relieving factors: oxygen and rest Known history of: congestive heart failure and diabetes Associated symptoms: Reports chest congestion, cough and fever(s); Deny abdominal pain, chest pain, nausea, orthopnea or vomiting Treatment prior to arrival: oxygen Review of Systems Const: Reports: fever(s), chills, body aches, fatigue and malaise; Denies: change in appetite ENMT: Denies: throat pain, ear or mastoid pain, nasal discharge or nasal congestion Card: Reports: dyspnea on exertion; Denies: chest pain, edema or orthopnea Resp: Reports: dyspnea, non-productive cough, wheezing and chest congestion GI: Denies: abdominal pain, nausea, vomiting, hematemesis, coffee ground emesis, diarrhea, constipation, bloating, hematochezia or melena : Denies: flank pain, difficulty voiding, dysuria, urinary frequency or urinary urgency Skin/Breast: Denies: rash or pruritus PFSH ED PFSH: Medical History (Updated 05/25/20 @ 07:01 by Osman Roberto DO) Acute kidney injury Anemia Aortic stenosis Chronic kidney disease, stage II (mild) DJD (degenerative joint disease) GERD (gastroesophageal reflux disease) Hyperlipidemia Hypertension Hypothyroidism Obesity Pulmonary embolism Surgical History History of cholecystectomy History of hernia repair History of tubal ligation Family History Other CAD (coronary artery disease) Social History Smoking and tobacco status: never smoked Alcohol intake: never Physical Exam Const: GENERAL APPEARANCE: cooperative and comfortable ORIENTATION/CONSCIOUSNESS: Yes awake, Yes oriented to person, Yes oriented to place and Yes oriented to time HENMT: COMMON NORMALS: normocephalic, atraumatic and hearing grossly normal bilaterally HEAD & SCALP: normocephalic and atraumatic Neck/C-Spine: COMMON NORMALS: no JVD Resp: AUSCULTATION: rhonchi and wheezes Cardio: COMMON NORMALS: no JVD, regular rate, regular rhythm and No murmurs present (Cardio) RATE: regular rate RHYTHM: regular rhythm GI: COMMON NORMALS: Soft to palpation and No hepatosplenomegaly present AUSCULTATION: Yes normoactive bowel sounds PALPATION: Yes Soft to palpation, No Tenderness to palpation present (GI), No Guarding due to palpation present (GI) and Yes No hepatosplenomegaly present Extremity: COMMON NORMALS: normal to inspection, capillary refill normal, no clubbing, cyanosis or edema, no calf tenderness and no pedal edema Neuro: SENSORIUM/ORIENTATION: Yes oriented to person, Yes oriented to place and Yes oriented to time Skin: COMMON NORMALS: no rashes or lesions noted GENERAL SKIN EXAM: no rashes or lesions noted Course Vital Signs: Vital signs: Vital Signs Temperature 97.6 F 05/25/20 04:00 Pulse Rate 95 05/25/20 02:00 Respiratory Rate 22 H 05/25/20 02:00 Blood Pressure 123/84 05/24/20 23:52 Pulse Oximetry 100 05/25/20 02:00 MDM - SOB/Dyspnea MDM Narrative: Medical decision making narrative: Urine very cloudy. We will go ahead and admit discussed with Dr. Sánchez patient to be a admission to the . Lab Data: Labs: Lab Results 05/24/20 05/24/20 05/24/20 Range/Units 15:14 16:20 16:20 WBC 7.1 (4.0-10.0) 10^3/ uL RBC 3.60 L (4.1-5.3) 10^6/u L Hgb 9.1 L (11.5-15.3) g/dL Hct 33.7 L (37.0-47.0) % MCV 93.6 (81-99) fL MCH 25.3 L (28.0-34.0) pg MCHC 27.0 L (30.0-36.0) g/dL RDW 18.7 H (12.1-15.1) % Plt Count 197 (130-400) 10^3/c mm MPV 10.8 H (7.4-10.4) fL Neut % (Auto) 76.5 % Lymph % (Auto) 10.6 % Miller % (Auto) 9.4 % Eos % (Auto) 2.1 % Baso % (Auto) 1.0 % Neut # (Auto) 5.39 (1.8-7.7) 10^3/u L Lymph # (Auto) 0.8 (0.8-4.8) 10^3/u L Miller # (Auto) 0.7 (0.2-0.9) 10^3/u L Eos # (Auto) 0.2 (0.0-0.8) 10^3/u L Baso # (Auto) 0.1 (0.0-0.1) 10^3/u L Nucleated RBC % (a uto) 0 % Nucleated RBCs # 0.0 /100WBC PT 18.30 H (12.1-14.9) SECO NDS INR 1.47 H (0.8-1.2) APTT 33.6 (23.9-36.7) SECO NDS Fibrinogen 498 (174-498) mg/dL D-Dimer 1.36 H (0-0.59) ug/mIFE U Specimen Type Arterial Sample Site Brachial, left ABG pH 7.43 (7.35-7.45) ABG pCO2 38.1 (35-45) mmHg ABG pO2 64.9 L (80.0-100.0) mmH g ABG HCO3 25.5 (22-26) mmol/L ABG Base Excess 1.2 (-2.0-2.0) mmol/ L Kulwinder Test Pos Hematocrit 28.7 L (37-47) % O2 Delivery Device Nc O2 Liters/Min 10.0 % Oyster Grower ID Cak Sodium (136-145) mmol/L Potassium (3.5-5.1) mmol/L Chloride (98-107) mmol/L Carbon Dioxide (22-29) mmol/L Anion Gap (5-19) BUN (8-23) mg/dL Creatinine (0.5-0.9) mg/dL GFR Calculation Glucose (65-115) mg/dL Calculated Osmolal ity (285-295) mOsm/k g Lactic Acid (0.5-2.2) mmol/L Calcium (8.5-10.5) mg/dL Ferritin (15-150) ng/mL Total Bilirubin (0.15-1.2) mg/dL AST (0-32) U/L ALT (0-33) U/L Alkaline Phosphata se (35-105) IU/L Lactate Dehydrogen ase (135-214) U/L Creatine Kinase (26-192) U/L Troponin T Baselin e (0-10) ng/L NT-Pro-B Natriuret Pep (0-450) pg/mL Total Protein (6.6-8.7) g/dL Albumin (3.5-5.2) g/dL Globulin (1.3-4.6) g/dL Procalcitonin (0-0.5) ng/mL Urine Color (Yellow) Urine Appearance (CLEAR) Urine pH (5-7) Ur Specific Gravit y (1.005-1.030) Urine Protein (Negative) Urine Glucose (UA) (Normal) Urine Ketones (Negative) Urine Blood (Negative) Urine Nitrate (Negative) Urine Bilirubin (Negative) Urine Urobilinogen (Negative) mg/dL Ur Leukocyte Jess ase (Negative) Urine RBC (0-2) /hpf Urine WBC (0-5) /hpf Ur Squamous Epith Cells (0-5) /hpf Amorphous Sediment Urine Bacteria (NONE) /hpf 05/24/20 05/24/20 05/24/20 Range/Units 16:20 16:20 16:46 WBC (4.0-10.0) 10^3/ uL RBC (4.1-5.3) 10^6/u L Hgb (11.5-15.3) g/dL Hct (37.0-47.0) % MCV (81-99) fL MCH (28.0-34.0) pg MCHC (30.0-36.0) g/dL RDW (12.1-15.1) % Plt Count (130-400) 10^3/c mm MPV (7.4-10.4) fL Neut % (Auto) % Lymph % (Auto) % Miller % (Auto) % Eos % (Auto) % Baso % (Auto) % Neut # (Auto) (1.8-7.7) 10^3/u L Lymph # (Auto) (0.8-4.8) 10^3/u L Miller # (Auto) (0.2-0.9) 10^3/u L Eos # (Auto) (0.0-0.8) 10^3/u L Baso # (Auto) (0.0-0.1) 10^3/u L Nucleated RBC % (a uto) % Nucleated RBCs # /100WBC PT (12.1-14.9) SECO NDS INR (0.8-1.2) APTT (23.9-36.7) SECO NDS Fibrinogen (174-498) mg/dL D-Dimer (0-0.59) ug/mIFE U Specimen Type Sample Site ABG pH (7.35-7.45) ABG pCO2 (35-45) mmHg ABG pO2 (80.0-100.0) mmH g ABG HCO3 (22-26) mmol/L ABG Base Excess (-2.0-2.0) mmol/ L Kulwinder Test Hematocrit (37-47) % O2 Delivery Device O2 Liters/Min % Oyster Grower ID Sodium 143 (136-145) mmol/L Potassium 4.0 (3.5-5.1) mmol/L Chloride 101 (98-107) mmol/L Carbon Dioxide 24 (22-29) mmol/L Anion Gap 22.0 H (5-19) BUN 46 H (8-23) mg/dL Creatinine 2.2 H (0.5-0.9) mg/dL GFR Calculation Not Reportable Glucose 109 (65-115) mg/dL Calculated Osmolal ity 308 H (285-295) mOsm/k g Lactic Acid 1.5 (0.5-2.2) mmol/L Calcium 8.9 (8.5-10.5) mg/dL Ferritin 3253 H (15-150) ng/mL Total Bilirubin 0.6 (0.15-1.2) mg/dL AST 26 (0-32) U/L ALT 14 (0-33) U/L Alkaline Phosphata se 112 H (35-105) IU/L Lactate Dehydrogen ase 217 H (135-214) U/L Creatine Kinase 151 (26-192) U/L Troponin T Baselin e 55 H (0-10) ng/L NT-Pro-B Natriuret Pep 6443 H (0-450) pg/mL Total Protein 7.6 (6.6-8.7) g/dL Albumin 3.7 (3.5-5.2) g/dL Globulin 3.9 (1.3-4.6) g/dL Procalcitonin 0.12 (0-0.5) ng/mL Urine Color (Yellow) Urine Appearance (CLEAR) Urine pH (5-7) Ur Specific Gravit y (1.005-1.030) Urine Protein (Negative) Urine Glucose (UA) (Normal) Urine Ketones (Negative) Urine Blood (Negative) Urine Nitrate (Negative) Urine Bilirubin (Negative) Urine Urobilinogen (Negative) mg/dL Ur Leukocyte Jess ase (Negative) Urine RBC (0-2) /hpf Urine WBC (0-5) /hpf Ur Squamous Epith Cells (0-5) /hpf Amorphous Sediment Urine Bacteria (NONE) /hpf 05/24/ Range/Units 17:30 WBC (4.0-10.0) 10^3/ uL RBC (4.1-5.3) 10^6/u L Hgb (11.5-15.3) g/dL Hct (37.0-47.0) % MCV (81-99) fL MCH (28.0-34.0) pg MCHC (30.0-36.0) g/dL RDW (12.1-15.1) % Plt Count (130-400) 10^3/c mm MPV (7.4-10.4) fL Neut % (Auto) % Lymph % (Auto) % Miller % (Auto) % Eos % (Auto) % Baso % (Auto) % Neut # (Auto) (1.8-7.7) 10^3/u L Lymph # (Auto) (0.8-4.8) 10^3/u L Miller # (Auto) (0.2-0.9) 10^3/u L Eos # (Auto) (0.0-0.8) 10^3/u L Baso # (Auto) (0.0-0.1) 10^3/u L Nucleated RBC % (a uto) % Nucleated RBCs # /100WBC PT (12.1-14.9) SECO NDS INR (0.8-1.2) APTT (23.9-36.7) SECO NDS Fibrinogen (174-498) mg/dL D-Dimer (0-0.59) ug/mIFE U Specimen Type Sample Site ABG pH (7.35-7.45) ABG pCO2 (35-45) mmHg ABG pO2 (80.0-100.0) mmH g ABG HCO3 (22-26) mmol/L ABG Base Excess (-2.0-2.0) mmol/ L Kulwinder Test Hematocrit (37-47) % O2 Delivery Device O2 Liters/Min % Oyster Grower ID Sodium (136-145) mmol/L Potassium (3.5-5.1) mmol/L Chloride (98-107) mmol/L Carbon Dioxide (22-29) mmol/L Anion Gap (5-19) BUN (8-23) mg/dL Creatinine (0.5-0.9) mg/dL GFR Calculation Glucose (65-115) mg/dL Calculated Osmolal ity (285-295) mOsm/k g Lactic Acid (0.5-2.2) mmol/L Calcium (8.5-10.5) mg/dL Ferritin (15-150) ng/mL Total Bilirubin (0.15-1.2) mg/dL AST (0-32) U/L ALT (0-33) U/L Alkaline Phosphata se (35-105) IU/L Lactate Dehydrogen ase (135-214) U/L Creatine Kinase (26-192) U/L Troponin T Baselin e (0-10) ng/L NT-Pro-B Natriuret Pep (0-450) pg/mL Total Protein (6.6-8.7) g/dL Albumin (3.5-5.2) g/dL Globulin (1.3-4.6) g/dL Procalcitonin (0-0.5) ng/mL Urine Color Yellow (Yellow) Urine Appearance Cloudy (CLEAR) Urine pH 5 (5-7) Ur Specific Gravit y 1.020 (1.005-1.030) Urine Protein 3+ H (Negative) Urine Glucose (UA) Norm (Normal) Urine Ketones 1+ H (Negative) Urine Blood 3+ H (Negative) Urine Nitrate Negative (Negative) Urine Bilirubin Neg (Negative) Urine Urobilinogen 1 H (Negative) mg/dL Ur Leukocyte Jess ase 2+ H (Negative) Urine RBC 25-40 H (0-2) /hpf Urine WBC Too numerous to c nt H (0-5) /hpf Ur Squamous Epith Cells 0-4 H (0-5) /hpf Amorphous Sediment Not Reportable Urine Bacteria 2+ H (NONE) /hpf Discharge Plan Discharge Patient Disposition: Admitted As Inpatient Admit Provider: Artur Sánchez Clinical Impression: Pneumonia due to COVID-19 virus, Anemia, Hypertension, Acute kidney injury, UTI (urinary tract infection) Condition: Stable Referrals: [facility] [Outside] (Return at discharge.) Interventions: ED Discharge Assessment Last Done: 05/24/20 19:04 ED Charges Last Done: 05/24/20 19:04 Discharge Date/Time: 05/24/20 20:49 Coding Level of Care Code ED Hydrological Technical Officer for [facility]
[2020-05-24 15:25] LABS: ABG PCO2 38.1 mmHg (35-45); ABG PH Result 7.43 (7.35-7.45); Arterial Blood Gas Hematocrit 28.7 % (37-47); Base Excess ABG 1.2 mmol/L (-2.0-2.0); Blood Gas Allen Test Pos; Blood Gas Operator Identificat CAK; Blood Gas Sample Site Brachial, left; Blood Gas Sample Type Arterial; HCO3 ABG 25.5 mmol/L (22-26); Oxygen Device NC; PO2 ABG 64.9 mmHg (80.0-100.0)
--- NOTE | 2020-05-24 15:36 | XRR_ITS ---
PROCEDURE INFORMATION: Exam: XR Right Shoulder Exam date and time: 05/24/2020 4:10 PM Age: 74 years old Clinical indication: Pain; Shoulder; Right TECHNIQUE: Imaging protocol: XR Right shoulder. Views: 2 or more views. COMPARISON: No relevant prior studies available. FINDINGS: Bones/joints: Negative for acute bony abnormality. Soft tissues: Normal. XR/XR shoulder RT min 2V* [id number] IMPRESSION: No acute findings.
[2020-05-24] MEDS: sodium chloride 0.9% 500 ML 999 ML IV ×2 (16:22→21:28)
[2020-05-24] MEDS: HYDROcodone-acetaminophen 5-325 mg Tablet 1 TAB PO (16:23)
[2020-05-24 16:35] LABS: Basophils # 0.1 10^3/uL (0.0-0.1); Eosinophils # 0.2 10^3/uL (0.0-0.8); Eosinophils % 2.1 %; Hematocrit 33.7 % (37.0-47.0); Hemoglobin 9.1 g/dL (11.5-15.3); Lymphocytes # 0.8 10^3/uL (0.8-4.8); Lymphocytes % 10.6 %; Mean Corpuscular Hemoglobin 25.3 pg (28.0-34.0); Mean Corpuscular Volume 93.6 fL (81-99); Mean Platelet Volume 10.8 fL (7.4-10.4); Monocytes # 0.7 10^3/uL (0.2-0.9); Monocytes % 9.4 %; Neutrophils # 5.39 10^3/uL (1.8-7.7); Neutrophils % 76.5 %; Nucleated Red Blood Cells % 0 %; Platelet Count 197 10^3/cmm (130-400); Red Cell Distribution Width 18.7 % (12.1-15.1); White Blood Count 7.1 10^3/uL (4.0-10.0)
[2020-05-24 16:54] LABS: INR 1.47 (0.8-1.2)
[2020-05-24 16:55] LABS: Partial Thromboplastin Time 33.6 SECONDS (23.9-36.7)
[2020-05-24 16:57] LABS: D Dimer 1.36 ug/mIFEU (0-0.59)
[2020-05-24 17:01] LABS: Troponin(5th) Baseline 55 ng/L (0-10)
[2020-05-24 17:10] LABS: NT Pro B Type Natriuretic Pept 6443 pg/mL (0-450); Procalcitonin 0.12 ng/mL (0-0.5)
[2020-05-24 17:15] LABS: Lactic Sepsis W/Reflex 1.5 mmol/L (0.5-2.2)
[2020-05-24 17:21] LABS: Alanine Aminotransferase 14 U/L (0-33); Albumin Level 3.7 g/dL (3.5-5.2); Alkaline Phosphatase 112 IU/L (35-105); Aspartate Amino Transferase 26 U/L (0-32); Blood Urea Nitrogen 46 mg/dL (8-23); Calcium 8.9 mg/dL (8.5-10.5); Carbon Dioxide 24 mmol/L (22-29); Chloride 101 mmol/L (98-107); Creatine Phosphokinase 151 U/L (26-192); Globulin 3.9 g/dL (1.3-4.6); Glucose 109 mg/dL (65-115); Lactate Dehydrogenase 217 U/L (135-214); Osmolality Calculated 308 mOsm/kg (285-295); Sodium 143 mmol/L (136-145); Total Bilirubin 0.6 mg/dL (0.15-1.2); Total Protein 7.6 g/dL (6.6-8.7)
--- NOTE | 2020-05-24 17:35 | PM.HP ---
Providers/Chief Complaint Primary Care Provider: Kristian Rincon DO Chief Complaint: WEAKNESS, R SHOULDER PAIN, NAUSEA, SOB History of Present Illness Krystal Andrews is a 74 year old female nursing facility patient who presented with dyspnea noted today. HAving some shoulder pain. She was diagnosed with Covid on April 29. Has been congested. No recent fever. Patient has signficant memory issues and she cannot give further history . This history was supplemented by nrusing facility. Review of Systems General: Reports: 10 or more systems reviewed and unremarkable except in HPI and below Const: Denies: fever(s) Eyes: Denies: change in vision ENMT: Reports: nasal discharge; Denies: throat pain Card: Denies: chest pain Resp: Reports: dyspnea and productive cough GI: Denies: abdominal pain : Denies: flank pain Musc: Denies: neck pain Skin/Breast: Denies: rash Neuro: Denies: headache(s) Psych: Denies: anxiety Endo: Denies: polyuria Liam/Lymph: Denies: easy bruising All/Imm: Denies: urticaria Medications/Allergies Home Medications Medication Instructions Recorded Confirmed Last Taken Type aspirin 81 mg PO DAILY 09/21/19 09/21/19 09/20/19 History levothyroxine 200 mcg PO DAILY 09/21/19 09/21/19 09/21/19 History apixaban [Eliquis] 2.5 mg PO BID #30 tab 10/02/19 Unknown Rx atorvastatin 40 mg PO BEDTIME #30 tab 10/02/19 Unknown Rx cyanocobalamin (vitamin B-12) 1,000 mcg PO DAILY #14 tab 10/02/19 Unknown Rx [Vitamin B-12] folic acid 1 mg PO DAILY #30 tab 10/02/19 Unknown Rx hydrocortisone acetate [Anucort-HC] 25 mg NM BID #12 each 10/02/19 Unknown Rx metoprolol tartrate 100 mg PO BID #120 tab 10/02/19 Unknown Rx pantoprazole 40 mg PO BID #60 tab 10/02/19 Unknown Rx polyethylene glycol 3350 [Miralax] 17 g PO BID #60 ea 10/02/19 Unknown Rx sennosides-docusate sodium 2 tab PO BID #60 tab 10/02/19 Unknown Rx verapamil 40 mg PO TID #90 tab 10/02/19 Unknown Rx Allergies Allergy/AdvReac Type Severity Reaction Status Date / Time Penicillins Allergy ALGY-Hives Verified 09/21/19 10:55 PFSH Acute PFSH: Medical History (Updated 05/24/20 @ 17:46 by Artur Sánchez MD) Acute kidney injury Anemia Aortic stenosis Chronic kidney disease, stage II (mild) DJD (degenerative joint disease) GERD (gastroesophageal reflux disease) Hyperlipidemia Hypertension Hypothyroidism Obesity Pulmonary embolism Surgical History History of cholecystectomy History of hernia repair History of tubal ligation Family History Other CAD (coronary artery disease) Social History Smoking and tobacco status: never smoked Alcohol intake: never Vitals/I&O/Wt Last Vital Signs Temp 98.3 F 05/24/20 14:46 Pulse 63 05/24/20 16:25 Resp 36 H 05/24/20 16:25 BP 95/53 05/24/20 14:46 Pulse Ox 92 05/24/20 16:25 Weight last 48 hrs Weight 117.934 kg Physical Exam Narrative: EXAM NARRATIVE: General exam is a white female, hard of hearing, in no apparent distress HEENT: Pupils equally round. Oropharynx clear. Neck is supple no lymphadenopathy or thyromegaly Cardiovascular regular rate and rhythm with a 2/6 systolic murmur Lungs coarse breath sounds bilaterally with a few dry crackles Abdomen is soft and nontender with positive bowel sounds Extremities no cyanosis clubbing. Left lower extremity with some erythema, skin breakdown, and at least 1+ edema. Skin see findings above Neurologic: Some memory deficits. Difficult to elicit any specific focal weakness. Data : 05/24/20 16:20 05/24/20 16:20 Micro: Microbiology 05/24/20 16:46 Blood Culture - Preliminary Blood SPECIMEN COLLECTED 05/24/20 16:50 Blood Culture - Preliminary Blood SPECIMEN COLLECTED Other data: EKG demonstrates atrial flutter, normal axis, no acute changes. Possible right bundle. INR 1.47 D-dimer 1.36 pH 7.43, PCO2 38, PO2 65 Ferritin pending. AST ALT and total bili normal. Troponin 55 Procalcitonin 0.12 CXR no obvious infil, shoulder xray no fracture. A&P Assessment and plan (1) Pneumonia due to COVID-19 virus: Somewhat atypical as was positive for Covid April 29. Initiate dexamethasone Initiate remdesivir Increase her Eliquis to 5 mg twice daily May need CTA during this hospitalization Albuterol as needed Initiate Levaquin Status: Acute (2) Respiratory failure with hypoxia: Oxygen as needed See notations above Status: Acute (3) Anemia: Continue to monitor hemoglobin She has required blood transfusion in the past Fecal Hemoccult Status: Acute Qualifiers: Anemia type: unspecified type Qualified Code(s): D64.9 - Anemia, unspecified (4) Cellulitis: Initiate vancomycin Check venous duplex lower extremities Status: Acute Additional A&P Information Possible UTI. Await culture, urinalysis history of moderate aortic stenosis GERD. Continue proton pump inhibitor Hypothyroidism. Continue home medication Hyperlipidemia. Continue statin History of atrial flutter/fibrillation, currently rate controlled Full code Eliquis for DVT prophylaxis Attestations Medical Necessity Statement*: Will need greater than 2 midnight stay for treatment of Covid 19 pneumonia Coding Level of Care Code Acute Java Integration Developer for [facility] Diagnoses Pneumonia due to COVID-19 virus U07.1; J12.89 Respiratory failure with hypoxia J96.91 Anemia D64.9 Anemia type: unspecified type Cellulitis L03.90
[2020-05-24 17:47] LABS: Ferritin 3253 ng/mL (15-150)
[2020-05-24 18:02] LABS: Fibrinogen 498 mg/dL (174-498)
[2020-05-24 18:09] LABS: Bacteria Urine 2+ /hpf; Bilirubin Urine Neg (Negative); Blood Urine 3+ (Negative); Glucose Urine UA Norm (Normal); Ketones Urine 1+ (Negative); Leukocyte Esterase Urine 2+ (Negative); Nitrate Urine Negative (Negative); Protein Urine 3+ (Negative); RBC Urine 25-40 /hpf (0-2); Squamous Epithelial Cell Urine 0-4 /hpf (0-5); Urine Appearance Cloudy (CLEAR); Urine Color Yellow (Yellow); Urobilinogen Urine 1 mg/dL (Negative); WBC Urine TOO NUMEROUS TO CNT /hpf (0-5); pH Urine 5 (5-7)
[2020-05-24 18:10] LABS: Add Urine Culture? Yes; Add Urine Microscopic? YES
[2020-05-24] MEDS: dexamethasone 4 mg/mL INJ 6 MG IVP (19:04)
--- NOTE | 2020-05-24 19:05 | PC.NURSE ---
EKG done at 1906 and shown to ER doctor
[2020-05-24 19:46] LABS: Troponin 5 2HR 47.35 ng/L (0-10); Troponin 5 2HR Delta -7.65 ABS# (0-10)
[2020-05-24 21:55] LABS: Thyroid Stimulating Hormone 11.68 uIU/mL (0.27-4.20)
[2020-05-24] MEDS: pantoprazole DR 40 mg Tablet PO (21:56)
[2020-05-24] MEDS: atorvastatin 40 mg Tablet PO (21:56)
[2020-05-24] MEDS: apixaban 5 mg Tablet PO (21:56)
[2020-05-24] MEDS: metoprolol tartrate 50 mg Tablet PO (21:56)
[2020-05-25] VITALS (156 sets, daily range): BP systolic 81–120; BP diastolic 65–91; PULSE 95–118; RESP 14–32; TEMP 36.1–37.2; O2SAT 86–100
[2020-05-25 00:17] LABS: Troponin 5 6HR 45.78 ng/L (0-10)
[2020-05-25 06:30] LABS: Basophils % 0.3 %; Eosinophils % 0.3 %; Hematocrit 28.7 % (37.0-47.0); Hemoglobin 8.1 g/dL (11.5-15.3); Lymphocytes # 0.4 10^3/uL (0.8-4.8); Lymphocytes % 9.8 %; Mean Corpuscular HGB Conc 28.2 g/dL (30.0-36.0); Mean Corpuscular Hemoglobin 25.1 pg (28.0-34.0); Mean Corpuscular Volume 88.9 fL (81-99); Mean Platelet Volume 11.3 fL (7.4-10.4); Monocytes # 0.1 10^3/uL (0.2-0.9); Monocytes % 1.6 %; Neutrophils % 87.7 %; Nucleated Red Blood Cells % 0 %; Platelet Count 139 10^3/cmm (130-400); Red Blood Count 3.23 10^6/uL (4.1-5.3); Red Cell Distribution Width 18.1 % (12.1-15.1); White Blood Count 3.9 10^3/uL (4.0-10.0)
[2020-05-25 06:43] LABS: D Dimer 1.44 ug/mIFEU (0-0.59)
[2020-05-25 06:50] LABS: Alanine Aminotransferase 13 U/L (0-33); Albumin Level 3.4 g/dL (3.5-5.2); Alkaline Phosphatase 103 IU/L (35-105); Aspartate Amino Transferase 14 U/L (0-32); Blood Urea Nitrogen 48 mg/dL (8-23); C Reactive Protein 66.8 mg/L (0.0-4.9); Calcium 8.8 mg/dL (8.5-10.5); Carbon Dioxide 25 mmol/L (22-29); Chloride 102 mmol/L (98-107); Globulin 3.7 g/dL (1.3-4.6); Glucose 126 mg/dL (65-115); Osmolality Calculated 304 mOsm/kg (285-295); Sodium 140 mmol/L (136-145); Total Bilirubin 0.4 mg/dL (0.15-1.2); Total Protein 7.1 g/dL (6.6-8.7)
--- NOTE | 2020-05-25 07:00 | USCV_ITS ---
Krystal Andrews Age: 74 Gender: F : 1945 Exam Date: 05/25/2020 06:48 Ordering Phys: Artur Sánchez MD Technologist: Lauren Bolivar Exam Location: [facility] Indication: EDEMA,PAIN HISTORY: Lower extremity pain. PROCEDURES: Venous duplex imaging was performed in bilateral lower extremities. The following venous structures were evaluated: common femoral vein, profunda vein, proximal portion of the greater saphenous vein, superficial femoral vein, and the popliteal vein. In addition, the posterior tibial and peroneal trunk were evaluated. Serial compression, augmentation maneuvers, and spectral Doppler flow evaluation were performed. FINDINGS: Normal 2-D Doppler and augmentation and compressibility throughout the lower extremity venous structures. Additional imaging through the proximal calf veins also reveals no thrombus. Limited evaluation of the greater saphenous vein is patent with no thrombus. CONCLUSIONS No DVT bilateral lower extremities. Dr. Maryam Prakash DO (Electronically Signed) Final Date: 25 May 2020 08:13 S
[2020-05-25] MEDS: pantoprazole DR 40 mg Tablet PO ×2 (10:18→16:31)
[2020-05-25] MEDS: aspirin 81 mg Chew Tablet PO (10:19)
[2020-05-25] MEDS: levothyroxine 100 mcg Tablet 200 MCG PO (10:19)
[2020-05-25] MEDS: apixaban 5 mg Tablet PO ×2 (10:20→16:31)
[2020-05-25] MEDS: metoprolol tartrate 50 mg Tablet PO (10:20)
--- NOTE | 2020-05-25 14:08 | P.PN_ITS ---
Subjective Subjective: Interval history: Krystal reports she is doing okay. No specific complaints. Medications: Reviewed: Yes Vitals/I&O/Wt Last Vital Signs Temp 98.6 F 05/25/20 12:41 Pulse 106 H 05/25/20 12:50 Resp 25 H 05/25/20 12:50 BP 95/71 05/25/20 12:50 Pulse Ox 92 05/25/20 12:50 05/24/20 05/25/20 05/25/20 22:59 06:59 14:59 Intake Total 680 / 680 Balance 680 / 680 Weight last 48 hrs Weight 117.934 kg Physical Exam Narrative: EXAM NARRATIVE: General exam is a white female no apparent distress Cardiovascular regular rate and rhythm with a 2/6 systolic murmur Lungs coarse breath sounds bilaterally with a few dry crackles Abdomen is soft and nontender with positive bowel sounds Extremities no cyanosis clubbing. Some left lower extremity edema but improved from yesterday Data : 05/25/20 04:00 05/25/20 04:00 Micro: Microbiology 05/24/20 16:46 Blood Culture - Preliminary Blood SPECIMEN COLLECTED 05/24/20 16:50 Blood Culture - Preliminary Blood SPECIMEN COLLECTED A&P Assessment and plan (1) Pneumonia due to COVID-19 virus: Somewhat atypical as was positive for Covid April 29. Initiate dexamethasone Initiate remdesivir Increase her Eliquis to 5 mg twice daily May need CTA during this hospitalization Albuterol as needed Rocephin IV, linezolid IV She has now weaned to room air Status: Acute (2) Respiratory failure with hypoxia: Oxygen as needed See notations above Status: Acute (3) Anemia: Continue to monitor hemoglobin She has required blood transfusion in the past Fecal Hemoccult pending. She has been positive in the past. Status: Acute (4) Cellulitis: Initiate linezolid Venous duplex negative for DVT Status: Acute Additional A&P Information Acute kidney injury. Low-dose fluids. Check CK. Check renal ultrasound. If worsens consider Boswell Probable UTI. Initiate Rocephin. Await urine culture history of moderate aortic stenosis. Hydration cautiously being given for renal failure GERD. Continue proton pump inhibitor Hypothyroidism. Continue home medication. TSH elevated. Adjust thyroid hormone slightly Hyperlipidemia. Continue statin History of atrial flutter/fibrillation, currently rate controlled Full code Eliquis for DVT prophylaxis Attestations Medical Necessity Statement*: Needs continued hospital stay for treatment of COVID-19 pneumonia with antiviral, probable UTI with IV antibiotics Coding Level of Care Code Acute Counter Intelligence Technician for [facility] Diagnoses Pneumonia due to COVID-19 virus U07.1; J12.89 Respiratory failure with hypoxia J96.91 Anemia D64.9 Cellulitis L03.90
--- NOTE | 2020-05-25 14:18 | US_ITS ---
WS: [id number] RENAL ULTRASOUND HISTORY: renal failure COMPARISON: 09/26/2019 TECHNIQUE: 2-D and color Doppler imaging of the kidney submitted. Right kidney: 9.8 cm x 4.5 cm x 4.5 cm. Mild atrophy of the kidney. Cyst in the mid cortex measures 2.6 x 2.3 x 2.4 cm. There is mild diffuse thinning of the cortex. No hydronephrosis. Left kidney: 9.7 cm x 4.6 cm x 5.0 cm. Diffuse cortical thinning and mild atrophy. No mass. Aorta: Not visualized. Urinary Bladder: Nondistended. Boswell catheter in place. US/US renal BI* [id number] IMPRESSION: 1. No hydronephrosis. 2. Stable RIGHT renal cyst at 2.6 cm. 3. Mild renal atrophy and cortical thinning.
[2020-05-25] MEDS: sodium chloride 0.9% 1,000 ML 50 ML IV (14:36)
[2020-05-25] MEDS: cefTRIAXone 1,000 MG in sodium chloride 0.9% (plus) 50 ML 100 MG IV (14:36)
[2020-05-25] MEDS: linezolid premix 600 MG/300 ML PREMIX 300 MG IV (15:25)
[2020-05-25 15:38] LABS: Creatine Phosphokinase 109 U/L (26-192)
[2020-05-25] MEDS: dexamethasone 4 mg/mL INJ 6 MG IVP (16:31)
[2020-05-25] MEDS: metoprolol tartrate 50 mg Tablet 75 MG PO (17:26)
--- NOTE | 2020-05-25 17:54 | PC.NURSE ---
patients left calf has a large weeping beefy wound present. it may need silversulfadene or at least xerform gauze , currently i have cleaned the wound with saline an d a weak betadine solution and did damp to dry packing over the area and wrapped with kerlix.
--- NOTE | 2020-05-25 18:18 | PC.NURSE ---
patient has been incontinent over 6 times today. her bed had a total change at 0700 assessment as the urine was to the foot of the bed. she does not know when this is happening. it is not quite as dark as it was this am. pericare performed 6 times. one total bed change and 2 pad changes. no breakdown noted, but leg wound is concerning.
[2020-05-25] MEDS: atorvastatin 40 mg Tablet PO (20:14)
[2020-05-25 20:49] LABS: Glucose Point of Care 173 mg/dL (70-110)
[2020-05-26] VITALS (98 sets, daily range): BP systolic 96–134; BP diastolic 66–98; PULSE 98–109; RESP 13–92; TEMP 36.4–37.3; O2SAT 90–97
[2020-05-26] MEDS: linezolid premix 600 MG/300 ML PREMIX 300 MG IV ×2 (02:33→15:48)
[2020-05-26 05:28] LABS: Hematocrit 26.8 % (37.0-47.0); Hemoglobin 7.4 g/dL (11.5-15.3); Lymphocytes # 0.4 10^3/uL (0.8-4.8); Lymphocytes % 7.3 %; Mean Corpuscular HGB Conc 27.6 g/dL (30.0-36.0); Mean Corpuscular Hemoglobin 24.6 pg (28.0-34.0); Mean Platelet Volume 11.4 fL (7.4-10.4); Monocytes # 0.3 10^3/uL (0.2-0.9); Monocytes % 4.6 %; Neutrophils # 5.33 10^3/uL (1.8-7.7); Neutrophils % 87.9 %; Nucleated Red Blood Cells % 0 %; Platelet Count 143 10^3/cmm (130-400); Red Blood Count 3.01 10^6/uL (4.1-5.3); Red Cell Distribution Width 17.8 % (12.1-15.1); White Blood Count 6.1 10^3/uL (4.0-10.0)
[2020-05-26 05:53] LABS: Alanine Aminotransferase 9 U/L (0-33); Albumin Level 3.2 g/dL (3.5-5.2); Alkaline Phosphatase 95 IU/L (35-105); Anion Gap 13.8 (5-19); Aspartate Amino Transferase 8 U/L (0-32); Blood Urea Nitrogen 50 mg/dL (8-23); Calcium 8.7 mg/dL (8.5-10.5); Carbon Dioxide 26 mmol/L (22-29); Chloride 102 mmol/L (98-107); Globulin 3.6 g/dL (1.3-4.6); Glucose 150 mg/dL (65-115); Osmolality Calculated 302 mOsm/kg (285-295); Potassium 3.8 mmol/L (3.5-5.1); Sodium 138 mmol/L (136-145); Total Bilirubin 0.3 mg/dL (0.15-1.2); Total Protein 6.8 g/dL (6.6-8.7)
[2020-05-26] MEDS: apixaban 5 mg Tablet PO ×2 (09:52→17:02)
[2020-05-26] MEDS: pantoprazole DR 40 mg Tablet PO ×2 (09:52→17:03)
[2020-05-26] MEDS: levothyroxine 112 mcg Tablet 224 MCG PO (09:54)
[2020-05-26] MEDS: aspirin 81 mg Chew Tablet PO (09:55)
[2020-05-26] MEDS: metoprolol tartrate 50 mg Tablet 75 MG PO (09:55)
--- NOTE | 2020-05-26 11:33 | P.PN_ITS ---
Subjective Subjective: Interval history: Krystal reports she feels better. No significant cough or shortness of breath currently. Medications: Reviewed: Yes Vitals/I&O/Wt Last Vital Signs Temp 98.2 F 05/26/20 10:25 Pulse 107 H 05/26/20 10:25 Resp 19 H 05/26/20 10:25 BP 112/85 05/26/20 10:25 Pulse Ox 93 05/26/20 10:25 05/25/20 05/26/20 05/26/20 22:59 06:59 14:59 Intake Total 670 / 1350 100 / 1450 240 / 240 Balance 670 / 1350 100 / 1450 240 / 240 Weight last 48 hrs Weight 127.913 kg Weight 117.934 kg Physical Exam Narrative: EXAM NARRATIVE: General exam is a white female no apparent distress Cardiovascular regular rate and rhythm with a 2/6 systolic murmur. Slight tachycardia noted Lungs coarse breath sounds bilaterally with a few dry crackles Abdomen is soft and nontender with positive bowel sounds. Mass noted to the left of the epigastrium consistent with her hepatic cyst Extremities no cyanosis clubbing. Erythema left lower extremity improved. Blister site with slight amount of drainage Data : 05/26/20 04:40 05/26/20 04:40 Micro: Microbiology 05/24/20 17:30 Urine Culture - Preliminary Urine,Clean Catch Gram Negative Rods 05/24/20 16:50 Blood Culture - Preliminary Blood NEGATIVE TO DATE 05/24/20 16:46 Blood Culture - Preliminary Blood NEGATIVE TO DATE A&P Assessment and plan (1) Pneumonia due to COVID-19 virus: Somewhat atypical as was positive for Covid April 29. Continue dexamethasone Continue remdesivir Increase her Eliquis to 5 mg twice daily Continue to hold off on any CTA considering clinical improvement, renal function. Albuterol as needed Continue Rocephin and linezolid She has now weaned to room air Status: Acute (2) Respiratory failure with hypoxia: Oxygen as needed See notations above Status: Acute (3) Anemia: Hemoglobin has dropped with no evidence of active bleeding. Awaiting stool Hemoccult. In part may be due to dilution secondary to IV fluids. Stool Hemoccult has been positive in the past She has required blood transfusion in the past Status: Acute (4) Cellulitis: Initiate linezolid Venous duplex negative for DVT Status: Acute Additional A&P Information Acute kidney injury. Discontinue fluids currently. CK without significant elevation. Renal ultrasound without obstruction. Renal function appears to be improving Probable UTI. Continue Rocephin. Await urine culture. Growing gram-negative rods history of moderate aortic stenosis. Hydration cautiously being given for renal failure Slight tachycardia. As blood pressure appears to be improved will reevaluate her metoprolol and verapamil doses GERD. Continue proton pump inhibitor Hypothyroidism. Continue home medication. TSH elevated. Thyroid hormone dosing adjusted slightly Hyperlipidemia. Continue statin History of atrial flutter/fibrillation, currently rate controlled. Increase me toprolol Full code Eliquis for DVT prophylaxis Attestations Medical Necessity Statement*: Needs continued hospitalization for IV antibiotics for UTI, close follow-up with hemoglobin, and treatment of COVID-19 pneumonia Coding Level of Care Code Acute Jail Manager for [facility] Diagnoses Pneumonia due to COVID-19 virus U07.1; J12.89 Respiratory failure with hypoxia J96.91 Anemia D64.9 Cellulitis L03.90
[2020-05-26] MEDS: cefTRIAXone 1,000 MG in sodium chloride 0.9% (plus) 50 ML 100 MG IV (14:51)
[2020-05-26] MEDS: dexamethasone 4 mg/mL INJ 6 MG IVP (17:03)
[2020-05-26] MEDS: metoprolol tartrate 50 mg Tablet 100 MG PO (17:04)
[2020-05-26] MEDS: atorvastatin 40 mg Tablet PO (20:39)
[2020-05-27] VITALS (27 sets, daily range): BP systolic 107–154; BP diastolic 70–112; PULSE 89–123; RESP 16–36; TEMP 36.6–37.2; O2SAT 88–96
[2020-05-27] MEDS: linezolid premix 600 MG/300 ML PREMIX 300 MG IV ×2 (03:03→15:07)
[2020-05-27 05:00] LABS: Basophils % 0.2 %; Hematocrit 30.2 % (37.0-47.0); Hemoglobin 8.2 g/dL (11.5-15.3); Lymphocytes # 0.6 10^3/uL (0.8-4.8); Lymphocytes % 8.9 %; Mean Corpuscular HGB Conc 27.2 g/dL (30.0-36.0); Mean Corpuscular Hemoglobin 24.8 pg (28.0-34.0); Mean Corpuscular Volume 91.5 fL (81-99); Mean Platelet Volume 11.2 fL (7.4-10.4); Monocytes # 0.5 10^3/uL (0.2-0.9); Monocytes % 7.8 %; Neutrophils # 5.31 10^3/uL (1.8-7.7); Neutrophils % 82.6 %; Nucleated Red Blood Cells % 0 %; Platelet Count 155 10^3/cmm (130-400); Red Cell Distribution Width 18.1 % (12.1-15.1); White Blood Count 6.4 10^3/uL (4.0-10.0)
[2020-05-27 05:32] LABS: Alanine Aminotransferase 7 U/L (0-33); Albumin Level 3.4 g/dL (3.5-5.2); Alkaline Phosphatase 85 IU/L (35-105); Anion Gap 14.9 (5-19); Aspartate Amino Transferase 6 U/L (0-32); Blood Urea Nitrogen 51 mg/dL (8-23); Calcium 8.8 mg/dL (8.5-10.5); Carbon Dioxide 25 mmol/L (22-29); Chloride 104 mmol/L (98-107); Globulin 3.6 g/dL (1.3-4.6); Glucose 144 mg/dL (65-115); Osmolality Calculated 306 mOsm/kg (285-295); Potassium 3.9 mmol/L (3.5-5.1); Sodium 140 mmol/L (136-145); Total Bilirubin 0.3 mg/dL (0.15-1.2)
[2020-05-27 05:33] LABS: C Reactive Protein 54.5 mg/L (0.0-4.9)
[2020-05-27 05:36] LABS: Procalcitonin 0.07 ng/mL (0-0.5)
[2020-05-27 05:40] LABS: D Dimer 1.35 ug/mIFEU (0-0.59)
[2020-05-27 05:47] LABS: Ferritin 914 ng/mL (15-150)
[2020-05-27] MEDS: aspirin 81 mg Chew Tablet PO (08:57)
[2020-05-27] MEDS: pantoprazole DR 40 mg Tablet PO ×2 (08:57→16:50)
[2020-05-27] MEDS: apixaban 5 mg Tablet PO ×2 (08:57→16:48)
[2020-05-27] MEDS: metoprolol tartrate 50 mg Tablet 100 MG PO ×2 (08:57→16:48)
[2020-05-27] MEDS: levothyroxine 112 mcg Tablet 224 MCG PO (08:58)
--- NOTE | 2020-05-27 10:16 | PM.PN ---
Subjective Subjective: Interval history: Krystal reports she is doing okay. She is back on oxygen. Denies being short of breath on oxygen. Medications: Reviewed: Yes Vitals/I&O/Wt Last Vital Signs Temp 98.0 F 05/27/20 07:40 Pulse 110 H 05/27/20 07:40 Resp 26 H 05/27/20 07:40 BP 146/94 05/27/20 07:40 Pulse Ox 95 05/27/20 07:40 05/26/20 05/27/20 05/27/20 22:59 06:59 14:59 Intake Total 1040 / 1660 240 / 240 Balance 1040 / 1660 240 / 240 Weight last 48 hrs Weight 125 kg Weight 127.913 kg Physical Exam Narrative: EXAM NARRATIVE: General exam is a white female no apparent distress Cardiovascular regular rate and rhythm with a 2/6 systolic murmur. Slight tachycardia noted Lungs clear today Abdomen is soft and nontender with positive bowel sounds. Mass noted to the left of the epigastrium consistent with her hepatic cyst Extremities no cyanosis clubbing. Erythema left lower extremity significantly improved. Blister site with slight amount of drainage Data : 05/27/20 04:15 05/27/20 04:15 Micro: Microbiology 05/24/20 17:30 Urine Culture - Preliminary Urine,Clean Catch Gram Negative Rods A&P Assessment and plan (1) Pneumonia due to COVID-19 virus: Somewhat atypical as was positive for Covid April 29. Continue dexamethasone Continue remdesivir Continue Eliquis to 5 mg twice daily Continue to hold off on any CTA considering clinical improvement, renal function. Albuterol as needed Continue Rocephin and linezolid She is now back on oxygen. Holding discharge as she still has some hypoxia and at this point will continue antiviral. Status: Acute (2) Respiratory failure with hypoxia: Oxygen as needed See notations above Status: Acute (3) Anemia: Hemoglobin has dropped with no evidence of active bleeding. Awaiting stool Hemoccult. In part may be due to dilution secondary to IV fluids. Stool Hemoccult has been positive in the past. Hemoglobin improved today She has required blood transfusion in the past Status: Acute (4) Cellulitis: Initiate linezolid Venous duplex negative for DVT Status: Acute Additional A&P Information Acute kidney injury. Discontinue fluids currently. CK without significant elevation. Renal ultrasound without obstruction. Renal function continues to improve Probable UTI. Continue Rocephin. Await urine culture. Growing gram-negative rods history of moderate aortic stenosis. Hydration cautiously being given for renal failure Slight tachycardia. Continue metoprolol. Restart verapamil. GERD. Continue proton pump inhibitor Hypothyroidism. Continue home medication. TSH elevated. Thyroid hormone dosing adjusted slightly Hyperlipidemia. Continue statin History of atrial flutter/fibrillation, currently rate controlled. Continue metoprolol and verapamil. Full code Eliquis for DVT prophylaxis Attestations Medical Necessity Statement*: Needs continued hospital stay for IV antibiotics for UTI, treatment for COVID-19 pneumonia with antiviral and dexamethasone Coding Level of Care Code Acute Manager Diversity for [facility] Diagnoses Pneumonia due to COVID-19 virus U07.1; J12.89 Respiratory failure with hypoxia J96.91 Anemia D64.9 Cellulitis L03.90
--- NOTE | 2020-05-27 14:03 | DCPLANNER ---
Pg 2 of IM explained to pt's Son; Rony via the phone - [phone]. He was happy that typewriter assembler called. No questions.
[2020-05-27] MEDS: cefTRIAXone 1,000 MG in sodium chloride 0.9% (plus) 50 ML 100 MG IV (15:01)
[2020-05-27] MEDS: dexamethasone 4 mg/mL INJ 6 MG IVP (16:47)
[2020-05-27] MEDS: polyethylene glycol 3350 Pkt 17 gm PO (16:49)
[2020-05-27] MEDS: atorvastatin 40 mg Tablet PO (21:01)
[2020-05-27] MEDS: acetaminophen 325 mg Tablet 650 MG PO (21:02)
[2020-05-28] VITALS (27 sets, daily range): BP systolic 93–149; BP diastolic 62–112; PULSE 78–118; RESP 16–32; TEMP 36.5–36.9; O2SAT 85–97
[2020-05-28] MEDS: linezolid premix 600 MG/300 ML PREMIX 300 MG IV ×2 (03:56→15:00)
[2020-05-28 05:03] LABS: Hematocrit 31.3 % (37.0-47.0); Hemoglobin 8.7 g/dL (11.5-15.3); Lymphocytes # 0.5 10^3/uL (0.8-4.8); Lymphocytes % 6.3 %; Mean Corpuscular HGB Conc 27.8 g/dL (30.0-36.0); Mean Corpuscular Hemoglobin 25.1 pg (28.0-34.0); Mean Corpuscular Volume 90.5 fL (81-99); Mean Platelet Volume 11.6 fL (7.4-10.4); Monocytes # 0.7 10^3/uL (0.2-0.9); Monocytes % 9.2 %; Neutrophils # 6.16 10^3/uL (1.8-7.7); Neutrophils % 84.1 %; Nucleated Red Blood Cells % 0 %; Platelet Count 157 10^3/cmm (130-400); Red Blood Count 3.46 10^6/uL (4.1-5.3); Red Cell Distribution Width 18.6 % (12.1-15.1); White Blood Count 7.3 10^3/uL (4.0-10.0)
[2020-05-28] MEDS: acetaminophen 325 mg Tablet 650 MG PO ×3 (05:10→18:15)
[2020-05-28 05:36] LABS: Alanine Aminotransferase 8 U/L (0-33); Albumin Level 3.2 g/dL (3.5-5.2); Alkaline Phosphatase 90 IU/L (35-105); Aspartate Amino Transferase 11 U/L (0-32); Blood Urea Nitrogen 43 mg/dL (8-23); Calcium 8.8 mg/dL (8.5-10.5); Carbon Dioxide 26 mmol/L (22-29); Chloride 105 mmol/L (98-107); Glucose 126 mg/dL (65-115); Osmolality Calculated 304 mOsm/kg (285-295); Sodium 141 mmol/L (136-145); Total Bilirubin 0.3 mg/dL (0.15-1.2); Total Protein 7.2 g/dL (6.6-8.7)
[2020-05-28 05:38] LABS: Anion Gap 14.1 (5-19); Potassium 4.1 mmol/L (3.5-5.1)
[2020-05-28] MEDS: apixaban 5 mg Tablet PO ×2 (08:56→17:12)
[2020-05-28] MEDS: pantoprazole DR 40 mg Tablet PO ×2 (08:56→17:12)
[2020-05-28] MEDS: aspirin 81 mg Chew Tablet PO (08:56)
[2020-05-28] MEDS: levothyroxine 112 mcg Tablet 224 MCG PO (08:56)
[2020-05-28] MEDS: metoprolol tartrate 50 mg Tablet 100 MG PO ×2 (08:56→17:12)
[2020-05-28] MEDS: albuterol 8 gm MDI 2 PUFF INHALATION ×2 (11:02→23:35)
--- NOTE | 2020-05-28 11:21 | XRR_ITS ---
PROCEDURE INFORMATION: Exam: XR Chest, 1 View Exam date and time: 05/28/2020 12:33 PM Age: 74 years old Clinical indication: Shortness of breath; Additional info: Dyspnea TECHNIQUE: Imaging protocol: XR of the chest Views: 1 view. COMPARISON: CR XR chest 1V portable [id number] 05/24/2020 3:21 PM FINDINGS: Lungs: Low lung volumes are seen No consolidation. Pleural space: Left lower lobe opacity consistent with pleural effusion. No pneumothorax. Heart/Mediastinum: Unremarkable. There is cardiomegaly for projection. Bones/joints: Unremarkable. XR/XR chest 1V portable [id number] IMPRESSION: 1. Low lung volumes 2. Left lower lobe opacity possible pleural effusion 3. Cardiomegaly for projection
--- NOTE | 2020-05-28 11:21 | PM.PN ---
Subjective Subjective: Interval history: Krystal reports she is nauseated this morning. She has had some right shoulder discomfort, when she moves it. Nursing alerts me that she is now needing 3 L of oxygen. No chest pain. Medications: Reviewed: Yes Vitals/I&O/Wt Last Vital Signs Temp 98.2 F 05/28/20 08:00 Pulse 89 05/28/20 11:02 Resp 18 05/28/20 11:02 BP 112/84 05/28/20 10:00 Pulse Ox 90 05/28/20 11:02 05/27/20 05/28/20 05/28/20 22:59 06:59 14:59 Intake Total 600 / 1080 120 / 120 Output Total 150 / 150 Balance 600 / 1080 -150 / 930 120 / 120 Weight last 48 hrs Weight 125.645 kg Weight 125 kg Physical Exam Narrative: EXAM NARRATIVE: General exam is a white female no apparent distress Cardiovascular regular rate and rhythm with a 2/6 systolic murmur. Lungs clear but with diminished breath sounds bilaterally Abdomen is soft and nontender with positive bowel sounds. Mass noted to the left of the epigastrium consistent with her hepatic cyst Extremities no cyanosis clubbing. Erythema left lower extremity essentially resolved Data : 05/28/20 03:30 05/28/20 03:30 Micro: Microbiology 05/24/20 17:30 Urine Culture - Final Urine,Clean Catch Escherichia coli A&P Assessment and plan (1) Pneumonia due to COVID-19 virus: Somewhat atypical as was positive for Covid April 29. Continue dexamethasone Continue remdesivir Continue Eliquis to 5 mg twice daily Check chest x-ray. She had some desaturation this morning. Possible bronchial plugging. Albuterol as needed Continue Rocephin and linezolid for UTI and cellulitis respectively Status: Acute (2) Respiratory failure with hypoxia: Oxygen as needed See notations above It appears she is up 5 L from admission. Although she is not on Lasix as an outpatient, I will give her 20 mg IV now to see if this helps her respiratory status. Await chest x-ray. Note that her renal function has largely returned to baseline. Status: Acute (3) Anemia: Hemoglobin has dropped with no evidence of active bleeding. Awaiting stool Hemoccult. In part may be due to dilution secondary to IV fluids. Stool Hemoccult has been positive in the past. Hemoglobin currently stable She has required blood transfusion in the past Status: Acute (4) Cellulitis: Continue linezolid, wound care Venous duplex negative for DVT Status: Acute Additional A&P Information Acute kidney injury. Discontinue fluids currently. CK without significant elevation. Renal ultrasound without obstruction. Renal function continues to improve Probable UTI. Continue Rocephin. Await urine culture. Grew E. coli sensitive to Rocephin history of moderate aortic stenosis. Atrial fibrillation. Continue metoprolol. Continue verapamil. GERD. Continue proton pump inhibitor Hypothyroidism. Continue home medication. TSH elevated. Thyroid hormone dosing adjusted slightly Hyperlipidemia. Continue statin History of atrial flutter/fibrillation, currently rate controlled. Continue metoprolol and verapamil. Full code Eliquis for DVT prophylaxis Attestations Medical Necessity Statement*: Needs continued hospital stay for IV antibiotics, IV antiviral considering hypoxia with Covid Coding Level of Care Code Acute Area Mechanic for [facility] Diagnoses Pneumonia due to COVID-19 virus U07.1; J12.89 Respiratory failure with hypoxia J96.91 Anemia D64.9 Cellulitis L03.90
[2020-05-28] MEDS: FUROsemide 10 mg/mL SDV 4mL 20 MG IVP (11:51)
[2020-05-28] MEDS: cefTRIAXone 1,000 MG in sodium chloride 0.9% (plus) 50 ML 100 MG IV (14:11)
--- NOTE | 2020-05-28 16:48 | PC.NURSE ---
SHIFT SUMMARY PATIENT HAS DONE WELL TODAY. REQUIRED ANOTHER DOSE OF LASIX TODAY AND NEEDED TO BE PLACED BACK ON 2LNC O2. THIS OCCURRED DURING ROUNDS WITH DR. GRANT. PATIENT HAS HAD TWO SMALL-MODERATE EXTREMELY SOFT BOWEL MOVEMENTS THIS SHIFT. SHE IS INCONTINENT OF BOTH BOWEL AND BLADDER AND HAS HAD SEVERAL VOIDS. PATIENT GOT UP TO THE CHAIR FOR SUPPER WITH TWO PERSON ASSIST AND ENCOURAGED TO STAY UP LONG SHE COULD TOLERATE IT. DR. GRANT NOTIFIED OF ALL THE BEFORE MENTIONED. WILL CONTINUE TO MONITOR.
[2020-05-28] MEDS: dexamethasone 4 mg/mL INJ 6 MG IVP (17:12)
[2020-05-28] MEDS: atorvastatin 40 mg Tablet PO (20:22)
[2020-05-28] MEDS: TRAMadol 50 mg Tablet PO (21:53)
[2020-05-29] VITALS (24 sets, daily range): BP systolic 97–131; BP diastolic 54–96; PULSE 71–121; RESP 15–30; TEMP 36.5–37.1; O2SAT 76–96
[2020-05-29] MEDS: linezolid premix 600 MG/300 ML PREMIX 300 MG IV ×2 (03:51→16:30)
[2020-05-29 06:08] LABS: Hemoglobin 8.4 g/dL (11.5-15.3); Lymphocytes # 0.5 10^3/uL (0.8-4.8); Lymphocytes % 8.9 %; Mean Corpuscular HGB Conc 27.1 g/dL (30.0-36.0); Mean Corpuscular Hemoglobin 24.9 pg (28.0-34.0); Mean Platelet Volume 11.7 fL (7.4-10.4); Monocytes # 0.3 10^3/uL (0.2-0.9); Monocytes % 5.3 %; Neutrophils # 4.81 10^3/uL (1.8-7.7); Neutrophils % 85.4 %; Nucleated Red Blood Cells % 0 %; Platelet Count 172 10^3/cmm (130-400); Red Blood Count 3.37 10^6/uL (4.1-5.3); Red Cell Distribution Width 18.6 % (12.1-15.1); White Blood Count 5.6 10^3/uL (4.0-10.0)
[2020-05-29 06:25] LABS: D Dimer 1.44 ug/mIFEU (0-0.59)
[2020-05-29 06:42] LABS: Procalcitonin 0.09 ng/mL (0-0.5)
[2020-05-29 06:44] LABS: Alanine Aminotransferase 9 U/L (0-33); Albumin Level 3.3 g/dL (3.5-5.2); Alkaline Phosphatase 87 IU/L (35-105); Anion Gap 17.1 (5-19); Aspartate Amino Transferase 9 U/L (0-32); Blood Urea Nitrogen 48 mg/dL (8-23); C Reactive Protein 142.7 mg/L (0.0-4.9); Calcium 8.7 mg/dL (8.5-10.5); Carbon Dioxide 24 mmol/L (22-29); Chloride 105 mmol/L (98-107); Globulin 3.9 g/dL (1.3-4.6); Glucose 124 mg/dL (65-115); Osmolality Calculated 308 mOsm/kg (285-295); Potassium 4.1 mmol/L (3.5-5.1); Sodium 142 mmol/L (136-145); Total Bilirubin 0.3 mg/dL (0.15-1.2); Total Protein 7.2 g/dL (6.6-8.7)
[2020-05-29] MEDS: apixaban 5 mg Tablet PO ×2 (08:29→17:43)
[2020-05-29] MEDS: metoprolol tartrate 50 mg Tablet 100 MG PO ×2 (08:33→17:43)
[2020-05-29] MEDS: levothyroxine 112 mcg Tablet 224 MCG PO (08:33)
[2020-05-29] MEDS: pantoprazole DR 40 mg Tablet PO ×2 (08:33→17:43)
[2020-05-29] MEDS: aspirin 81 mg Chew Tablet PO (08:33)
--- NOTE | 2020-05-29 09:44 | PC.NURSE ---
patient placed in prone postion at this time patient tolerating ok saturation dropping to the 70s patient was very slow to recover with increased o2 flow patient then only came up to 78%, patient then placed on oxy mask at 10L with better results patient 86-93% at this time will continue to monitor.
--- NOTE | 2020-05-29 09:52 | PC.NURSE ---
patient did not tolerate pronging long and moved back to left side and tolerating better continues to require increased o2 flow level on oxymask
--- NOTE | 2020-05-29 10:15 | PC.NURSE ---
patient noted to de-saturate on monitor patient found to be turn way over on left side patient not tolerating laying down well at all. patient assisted to chair saturation is now 88-90% on 10L oxymask
--- NOTE | 2020-05-29 11:25 | PC.SOCIAL ---
IMM Update Pg. 2 of IMM updated and reviewed with patient's son Rony over the phone. Verbalized understanding.
--- NOTE | 2020-05-29 12:06 | P.PN_ITS ---
Subjective Subjective: Interval history: She is still requiring 4 L of oxygen via face mask. Other than that she is not having any active, complaint. Vitals and labs have been reviewed. Medications: Reviewed: Yes Vitals/I&O/Wt Last Vital Signs Temp 98.7 F 05/29/20 08:00 Pulse 78 05/29/20 10:00 Resp 24 H 05/29/20 10:00 BP 119/84 05/29/20 09:00 Pulse Ox 93 05/29/20 10:00 05/28/20 05/29/20 05/29/20 22:59 06:59 14:59 Intake Total 420 / 590 971 / 1561 240 / 240 Balance 420 / 590 971 / 1561 240 / 240 Weight last 48 hrs Weight 127.323 kg Weight 125.645 kg Physical Exam Const: COMMON NORMALS: patient oriented x3 HENMT: COMMON NORMALS: normocephalic, atraumatic, hearing grossly normal bilaterally and external ears normal HEAD & SCALP: normocephalic and atraumatic EXTERNAL EAR: Yes external ears normal Eye: COMMON NORMALS: no scleral icterus GENERAL EYE: appearance normal, both eyes and all related structures Chest: COMMONS NORMALS: normal inspection of the chest and normal palpation of entire chest wall CHEST: Yes Symmetrical chest wall rise Resp: COMMON NORMALS: normal respiratory effort, No retractions, No use of accessory muscles and clear to auscultation bilaterally EFFORT & INSPECTION: Yes symmetric chest movement AUSCULTATION: clear to auscultation bilaterally Cardio: COMMON NORMALS: regular rate, regular rhythm, S1 normal heart sound present, S2 normal heart sound present, No gallops present (Cardio), No murmurs present (Cardio), No rub (Cardio) and Peripheral pulses 2+ throughout RATE: regular rate RHYTHM: regular rhythm HEART SOUNDS: S1 normal heart sound present and S2 normal heart sound present PERIPHERAL PULSES: Peripheral pulses 2+ throughout GI: COMMON NORMALS: Normal to inspection, nondistended, normoactive bowel sounds present, Soft to palpation, non-tender, No hepatosplenomegaly present and no masses AUSCULTATION: Yes normoactive bowel sounds PALPATION: Yes Soft to palpation and Yes No hepatosplenomegaly present RECTAL EXAM: deferred Extremity: COMMON NORMALS: no clubbing, cyanosis or edema and no pedal edema Neuro: COMMON NORMALS: patient oriented x3 Data : 05/29/20 04:00 05/29/20 04:00 A&P Assessment and plan (1) Pneumonia due to COVID-19 virus: Somewhat atypical as was positive for Covid April 29. Cannot rule out superimposed secondary bacterial pneumonia. Continue dexamethasone Continue remdesivir Continue Eliquis to 5 mg twice daily Continue Zyvox start imipenem (05/29/2020) Discontinue ceftriaxone ( 05/29/2020) Albuterol as needed Continue linezolid and imipenem, for UTI and cellulitis respectively Status: Acute (2) Respiratory failure with hypoxia: Oxygen as needed Continue Zyvox start imipenem Discontinue ceftriaxone Currently on 4 L oxygen via facemask. Has received Lasix intermittently.We will hold Lasix for today. We will reassess her respiratory and volume status in the a.m. and decide on giving Lasix. Status: Acute (3) Anemia: Hemoglobin has dropped with no evidence of active bleeding. Awaiting stool Hemoccult. In part may be due to dilution secondary to IV fluids. Stool Hemoccult has been positive in the past. Hemoglobin currently stable She has required blood transfusion in the past Status: Acute (4) Cellulitis: Continue linezolid, and imipenem wound care Venous duplex negative for DVT Status: Acute Additional A&P Information Acute kidney injury. Serum creatinine likely peaked. Renal ultrasound without obstruction. Continue to monitor renal function. Probable UTI. On antibiotics history of moderate aortic stenosis. Atrial fibrillation. Continue metoprolol. Continue verapamil. GERD. Continue proton pump inhibitor Hypothyroidism. Continue home medication. TSH elevated. Thyroid hormone dosi ng adjusted slightly Hyperlipidemia. Continue statin History of atrial flutter/fibrillation, currently rate controlled. Continue metoprolol and verapamil. Full code Eliquis for DVT prophylaxis Attestations Medical Necessity Statement*: Patient needs to be in hospital for management of Covid pneumonia. Coding Level of Care Code Acute Loan Operations Specialist for [facility] Diagnoses Pneumonia due to COVID-19 virus U07.1; J12.89 Respiratory failure with hypoxia J96.91 Anemia D64.9 Cellulitis L03.90
[2020-05-29] MEDS: cefTRIAXone 1,000 MG in sodium chloride 0.9% (plus) 50 ML 100 MG IV (14:40)
[2020-05-29] MEDS: dexamethasone 4 mg/mL INJ 6 MG IVP (17:43)
[2020-05-29] MEDS: atorvastatin 40 mg Tablet PO (20:47)
[2020-05-30] VITALS (28 sets, daily range): BP systolic 99–156; BP diastolic 65–105; PULSE 67–116; RESP 12–28; TEMP 36.5–36.6; O2SAT 81–96
[2020-05-30] MEDS: linezolid premix 600 MG/300 ML PREMIX 300 MG IV ×2 (03:36→15:39)
[2020-05-30 05:54] LABS: Hematocrit 31.6 % (37.0-47.0); Hemoglobin 8.7 g/dL (11.5-15.3); Lymphocytes # 0.4 10^3/uL (0.8-4.8); Lymphocytes % 9.3 %; Mean Corpuscular HGB Conc 27.5 g/dL (30.0-36.0); Mean Corpuscular Hemoglobin 25.1 pg (28.0-34.0); Mean Corpuscular Volume 91.1 fL (81-99); Mean Platelet Volume 11.8 fL (7.4-10.4); Monocytes # 0.1 10^3/uL (0.2-0.9); Monocytes % 3.2 %; Neutrophils # 3.77 10^3/uL (1.8-7.7); Neutrophils % 87.3 %; Nucleated Red Blood Cells % 0.5 %; Platelet Count 180 10^3/cmm (130-400); Red Blood Count 3.47 10^6/uL (4.1-5.3); Red Cell Distribution Width 18.6 % (12.1-15.1); White Blood Count 4.3 10^3/uL (4.0-10.0)
[2020-05-30 06:03] LABS: Alanine Aminotransferase 10 U/L (0-33); Albumin Level 3.4 g/dL (3.5-5.2); Alkaline Phosphatase 91 IU/L (35-105); Anion Gap 15.9 (5-19); Aspartate Amino Transferase 7 U/L (0-32); Blood Urea Nitrogen 50 mg/dL (8-23); Calcium 8.6 mg/dL (8.5-10.5); Carbon Dioxide 25 mmol/L (22-29); Chloride 102 mmol/L (98-107); Globulin 3.9 g/dL (1.3-4.6); Glucose 208 mg/dL (65-115); Osmolality Calculated 307 mOsm/kg (285-295); Potassium 3.9 mmol/L (3.5-5.1); Sodium 139 mmol/L (136-145); Total Bilirubin 0.2 mg/dL (0.15-1.2); Total Protein 7.3 g/dL (6.6-8.7)
[2020-05-30] MEDS: apixaban 5 mg Tablet PO ×2 (08:56→18:09)
[2020-05-30] MEDS: aspirin 81 mg Chew Tablet PO (08:56)
[2020-05-30] MEDS: pantoprazole DR 40 mg Tablet PO ×2 (08:57→18:09)
[2020-05-30] MEDS: metoprolol tartrate 50 mg Tablet 100 MG PO ×2 (08:57→18:09)
[2020-05-30] MEDS: levothyroxine 112 mcg Tablet 224 MCG PO (08:57)
[2020-05-30 16:44] LABS: Glucose Point of Care 157 mg/dL (70-110)
--- NOTE | 2020-05-30 17:35 | P.PN_ITS ---
Subjective Subjective: Interval history: Shortness of breath has improved. Supplemental oxygen requirement is going down. Currently she is on 4 L oxygen via nasal cannula, NC and she is saturating above 92%. Vitals and labs have been reviewed. Medications: Reviewed: Yes Vitals/I&O/Wt Last Vital Signs Temp 97.9 F 05/30/20 15:00 Pulse 101 H 05/30/20 15:18 Resp 16 05/30/20 15:18 BP 120/95 05/30/20 15:00 Pulse Ox 94 05/30/20 15:18 05/30/20 05/30/20 05/30/20 06:59 14:59 22:59 Intake Total 430 / 1820 180 / 180 Balance 430 / 1820 180 / 180 Weight last 48 hrs Weight 126.915 kg Weight 127.323 kg Physical Exam Const: COMMON NORMALS: patient oriented x3 HENMT: COMMON NORMALS: normocephalic, atraumatic, hearing grossly normal bilaterally and external ears normal HEAD & SCALP: normocephalic and atraumatic EXTERNAL EAR: Yes external ears normal Eye: COMMON NORMALS: no scleral icterus GENERAL EYE: appearance normal, both eyes and all related structures Chest: COMMONS NORMALS: normal inspection of the chest and normal palpation of entire chest wall CHEST: Yes Symmetrical chest wall rise Resp: COMMON NORMALS: normal respiratory effort, No retractions, No use of accessory muscles and clear to auscultation bilaterally EFFORT & INSPECTION: Yes symmetric chest movement AUSCULTATION: clear to auscultation bilaterally Cardio: COMMON NORMALS: regular rate, regular rhythm, S1 normal heart sound present, S2 normal heart sound present, No gallops present (Cardio), No murmurs present (Cardio), No rub (Cardio) and Peripheral pulses 2+ throughout RATE: regular rate RHYTHM: regular rhythm HEART SOUNDS: S1 normal heart sound present and S2 normal heart sound present PERIPHERAL PULSES: Peripheral pulses 2+ throughout GI: COMMON NORMALS: Normal to inspection, nondistended, normoactive bowel sounds present, Soft to palpation, non-tender, No hepatosplenomegaly present and no masses AUSCULTATION: Yes normoactive bowel sounds PALPATION: Yes Soft to palpation and Yes No hepatosplenomegaly present RECTAL EXAM: deferred Extremity: COMMON NORMALS: no clubbing, cyanosis or edema and no pedal edema NARRATIVE EXTREMITY EXAM: Left lower extremity erythema is present which is improving. Trace bilateral pitting lower extremity edema. Neuro: COMMON NORMALS: patient oriented x3 Data : 05/30/20 04:45 05/30/20 04:45 Micro: Microbiology 05/24/20 16:46 Blood Culture - Final Blood NO GROWTH AFTER 5 DAYS 05/24/20 16:50 Blood Culture - Final Blood NO GROWTH AFTER 5 DAYS A&P Assessment and plan (1) Pneumonia due to COVID-19 virus: Somewhat atypical as was positive for Covid April 29. Cannot rule out superimposed secondary bacterial pneumonia. Continue dexamethasone Continue remdesivir Continue Eliquis to 5 mg twice daily Continue Zyvox and imipenem (05/29/2020) Discontinue ceftriaxone ( 05/29/2020) Albuterol as needed Continue linezolid and imipenem, for UTI and cellulitis respectively Status: Acute (2) Respiratory failure with hypoxia: Oxygen as needed Continue Zyvox , imipenem Discontinue ceftriaxone Currently on 4 L oxygen via facemask. Has received Lasix intermittently.We will hold Lasix for today. We will reassess her respiratory and volume status in the a.m. and decide on giving Lasix. Status: Acute (3) Anemia: Currently hemoglobin is stable: At 8.7 . Monitor CBC Stool Hemoccult has been positive in the past. She has required blood transfusion in the past no need for transfusion now. Status: Acute (4) Cellulitis: Continue linezolid, and imipenem wound care Venous duplex negative for DVT Status: Acute Additional A&P Information Acute kidney injury. Serum creatinine likely peaked. Continue to monitor BMP Renal ultrasound without obstruction. Continue to monitor renal function. Probable UTI. On antibiotics history of moderate aortic stenosis. Atrial fibrillation. Continue metoprolol. Continue verapamil. GERD. Continue proton pump inhibitor Hypothyroidism. Continue home medication. TSH elevated. Thyroid hormone dosing adjusted slightly Hyperlipidemia. Continue statin History of atrial flutter/fibrillation, currently rate controlled. Continue metoprolol and verapamil. Full code Eliquis for DVT prophylaxis Attestations Medical Necessity Statement*: Patient needs to be in hospital for management of Covid pneumonia. Coding Level of Care Code Acute Director Of Clinical Trials for [facility] Diagnoses Pneumonia due to COVID-19 virus U07.1; J12.89 Respiratory failure with hypoxia J96.91 Anemia D64.9 Cellulitis L03.90
[2020-05-30] MEDS: dexamethasone 4 mg/mL INJ 6 MG IVP (18:09)
[2020-05-30] MEDS: atorvastatin 40 mg Tablet PO (20:47)
[2020-05-30] MEDS: acetaminophen 325 mg Tablet 650 MG PO (22:43)
[2020-05-31] VITALS (17 sets, daily range): BP systolic 116–159; BP diastolic 79–108; PULSE 77–116; RESP 16–29; TEMP 36.3–36.6; O2SAT 92–100
[2020-05-31] MEDS: linezolid premix 600 MG/300 ML PREMIX 300 MG IV ×2 (03:21→14:32)
[2020-05-31 04:52] LABS: Hematocrit 31.1 % (37.0-47.0); Hemoglobin 8.5 g/dL (11.5-15.3); Lymphocytes # 0.3 10^3/uL (0.8-4.8); Lymphocytes % 11.1 %; Mean Corpuscular HGB Conc 27.3 g/dL (30.0-36.0); Mean Corpuscular Volume 91.5 fL (81-99); Mean Platelet Volume 10.9 fL (7.4-10.4); Monocytes # 0.1 10^3/uL (0.2-0.9); Neutrophils # 2.54 10^3/uL (1.8-7.7); Neutrophils % 85.2 %; Nucleated Red Blood Cells % 0 %; Platelet Count 163 10^3/cmm (130-400); Red Cell Distribution Width 18.9 % (12.1-15.1)
[2020-05-31 05:18] LABS: Alanine Aminotransferase 8 U/L (0-33); Albumin Level 3.1 g/dL (3.5-5.2); Alkaline Phosphatase 84 IU/L (35-105); Anion Gap 14.2 (5-19); Aspartate Amino Transferase 7 U/L (0-32); Blood Urea Nitrogen 51 mg/dL (8-23); Calcium 8.8 mg/dL (8.5-10.5); Carbon Dioxide 23 mmol/L (22-29); Chloride 104 mmol/L (98-107); Creatinine Clr Calc Pharmacy 45.5843; Globulin 3.6 g/dL (1.3-4.6); Glucose 168 mg/dL (65-115); Osmolality Calculated 302 mOsm/kg (285-295); Potassium 4.2 mmol/L (3.5-5.1); Sodium 137 mmol/L (136-145); Total Bilirubin 0.3 mg/dL (0.15-1.2); Total Protein 6.7 g/dL (6.6-8.7)
[2020-05-31] MEDS: apixaban 5 mg Tablet PO ×2 (08:29→17:24)
[2020-05-31] MEDS: pantoprazole DR 40 mg Tablet PO ×2 (08:29→17:24)
[2020-05-31] MEDS: metoprolol tartrate 50 mg Tablet 100 MG PO ×2 (08:29→17:24)
[2020-05-31] MEDS: levothyroxine 112 mcg Tablet 224 MCG PO (08:30)
[2020-05-31] MEDS: aspirin 81 mg Chew Tablet PO (08:30)
--- NOTE | 2020-05-31 09:35 | PC.NURSE ---
pt resting in bed at this time. switched from simple mask to nasal cannula for breakfast. saturation remaining in 90's. call light within reach, will continue to monitor.
--- NOTE | 2020-05-31 10:33 | PM.PN ---
Subjective Subjective: Interval history: Patient supplemental oxygen requirement has reduced significantly. Currently she is on 2 L of oxygen via nasal cannula and saturating more than 95%. She denies any shortness of breath. The left lower extremity cellulitis is improving. Medications: Reviewed: Yes Vitals/I&O/Wt Last Vital Signs Temp 97.4 F L 05/31/20 07:00 Pulse 116 H 05/31/20 09:00 Resp 21 H 05/31/20 09:00 BP 117/82 05/31/20 09:00 Pulse Ox 96 05/31/20 09:00 05/30/20 05/31/20 05/31/20 22:59 06:59 14:59 Intake Total 940 / 1220 300 / 1520 120 / 120 Balance 940 / 1220 300 / 1520 120 / 120 Weight last 48 hrs Weight 129.682 kg Weight 126.915 kg Physical Exam Narrative: EXAM NARRATIVE: COMMON NORMALS: patient oriented x3 HENNJ COMMON NORMALS: normocephalic, atraumatic, hearing grossly normal bilaterally and external ears normal HEAD & SCALP: normocephalic and atraumatic EXTERNAL EAR: Yes external ears normal Eye COMMON NORMALS: no scleral icterus GENERAL EYE: appearance normal, both eyes and all related structures Chest COMMONS NORMALS: normal inspection of the chest and normal palpation of entire chest wall CHEST: Yes Symmetrical chest wall rise Resp COMMON NORMALS: normal respiratory effort, No retractions, No use of accessory muscles and clear to auscultation bilaterally EFFORT & INSPECTION: Yes symmetric chest movement AUSCULTATION: clear to auscultation bilaterally Cardio COMMON NORMALS: regular rate, regular rhythm, S1 normal heart sound present, S2 normal heart sound present, No gallops present (Cardio), No murmurs present (Cardio), No rub (Cardio) and Peripheral pulses 2+ throughout RATE: regular rate RHYTHM: regular rhythm HEART SOUNDS: S1 normal heart sound present and S2 normal heart sound present PERIPHERAL PULSES: Peripheral pulses 2+ throughout GI COMMON NORMALS: Normal to inspection, nondistended, normoactive bowel sounds present, Soft to palpation, non-tender, No hepatosplenomegaly present and no masses AUSCULTATION: Yes normoactive bowel sounds PALPATION: Yes Soft to palpation and Yes No hepatosplenomegaly present RECTAL EXAM: deferred Extremity COMMON NORMALS: no clubbing, cyanosis or edema and no pedal edema NARRATIVE EXTREMITY EXAM: Left lower extremity erythema is present which is improving. Trace bilateral pitting lower extremity edema. Cardio: COMMON NORMALS: No rub (Cardio) GI: COMMON NORMALS: non-tender and no masses Extremity: COMMON NORMALS: no clubbing, cyanosis or edema and no pedal edema Data : 05/31/20 04:30 05/31/20 04:30 A&P Assessment and plan (1) Pneumonia due to COVID-19 virus: Somewhat atypical as was positive for Covid April 29. Cannot rule out superimposed secondary bacterial pneumonia. Continue dexamethasone Completed 5 day course of remdesivir 05/28 Continue Eliquis to 5 mg twice daily DisContinued Zyvox on ( 05/31) continue imipenem (05/29/2020) for now.PLan is to dc her on levofloxacin for 14 days. Discontinue ceftriaxone ( 05/29/2020) Albuterol as needed Continue imipenem, for UTI ( E.coli sensitive to imipenam ) and cellulitis respectively Status: Acute (2) Respiratory failure with hypoxia: Oxygen as needed Continue imipenem Discontinue ceftriaxone Currently on 3 L oxygen via NC. Has received Lasix intermittently.We will hold Lasix for today. We will reassess her respiratory and volume status in the a.m. and decide on giving Lasix. Status: Acute (3) Anemia: Currently hemoglobin is stable: At 8.7 . Monitor CBC Stool Hemoccult has been positive in the past. She has required blood transfusion in the past no need for transfusion now. Status: Acute (4) Cellulitis: Continue imipenem wound care Venous duplex negative for DVT Status: Acute Additional A&P Information Acute kidney injury. Serum creatinine has peaked. Continue to monitor BMP Renal ultrasound without obstruction. Continue to monitor renal function. Probable UTI. On antibiotics history of moderate aortic stenosis. Atrial fibrillation. Continue metoprolol. Continue verapamil. GERD. Continue proton pump inhibitor Hypothyroidism. Continue home medication. TSH elevated. Thyroid hormone dosing adjusted slightly Hyperlipidemia. Continue statin History of atrial flutter/fibrillation, currently rate controlled. Continue metoprolol and verapamil. Full code Eliquis for DVT prophylaxis Attestations Medical Necessity Statement*: Patient needs to be hospital for management of Covid pneumonia. 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
--- NOTE | 2020-05-31 13:20 | PC.SOCIAL ---
IMM Updated Updated pt's son on Pg 2 IMM via phone. No questions voiced. Signed, dated, & timed the copy for chart.
[2020-05-31] MEDS: dexamethasone 4 mg/mL INJ 6 MG IVP (17:24)
--- NOTE | 2020-05-31 19:00 | PM.PN ---
Subjective Subjective: Interval history: Patient is significantly improved. Requirement for supplemental oxygen has gone down. Currently she is on 2 L oxygen via nasal cannula. She has denied shortness of breath. Left lower extremity cellulitis, is also improving. Vitals and labs have been reviewed. Medications: Reviewed: Yes Vitals/I&O/Wt Last Vital Signs Temp 97.4 F L 05/31/20 07:00 Pulse 94 05/31/20 16:18 Resp 26 H 05/31/20 16:18 BP 129/79 05/31/20 16:18 Pulse Ox 96 05/31/20 16:18 05/31/20 05/31/20 05/31/20 06:59 14:59 22:59 Intake Total 600 / 1820 340 / 340 240 / 580 Balance 600 / 1820 340 / 340 240 / 580 Weight last 48 hrs Weight 129.682 kg Weight 126.915 kg Physical Exam Narrative: EXAM NARRATIVE: Narrative EXAM NARRATIVE: COMMON NORMALS: patient oriented x3 HENPA COMMON NORMALS: normocephalic, atraumatic, hearing grossly normal bilaterally and external ears normal HEAD & SCALP: normocephalic and atraumatic EXTERNAL EAR: Yes external ears normal Eye COMMON NORMALS: no scleral icterus GENERAL EYE: appearance normal, both eyes and all related structures Chest COMMONS NORMALS: normal inspection of the chest and normal palpation of entire chest wall CHEST: Yes Symmetrical chest wall rise Resp COMMON NORMALS: normal respiratory effort, No retractions, No use of accessory muscles and clear to auscultation bilaterally EFFORT & INSPECTION: Yes symmetric chest movement AUSCULTATION: clear to auscultation bilaterally Cardio COMMON NORMALS: regular rate, regular rhythm, S1 normal heart sound present, S2 normal heart sound present, No gallops present (Cardio), No murmurs present (Cardio), No rub (Cardio) and Peripheral pulses 2+ throughout RATE: regular rate RHYTHM: regular rhythm HEART SOUNDS: S1 normal heart sound present and S2 normal heart sound present PERIPHERAL PULSES: Peripheral pulses 2+ throughout GI COMMON NORMALS: Normal to inspection, nondistended, normoactive bowel sounds present, Soft to palpation, non-tender, No hepatosplenomegaly present and no masses AUSCULTATION: Yes normoactive bowel sounds PALPATION: Yes Soft to palpation and Yes No hepatosplenomegaly present RECTAL EXAM: deferred Extremity COMMON NORMALS: no clubbing, cyanosis or edema and no pedal edema NARRATIVE EXTREMITY EXAM: Left lower extremity erythema is present which is improving. Trace bilateral pitting lower extremity edema. Cardio COMMON NORMALS: No rub (Cardio) GI COMMON NORMALS: non-tender and no masses Extremity COMMON NORMALS: no clubbing, cyanosis or edema and no pedal edema Data : 05/31/20 04:30 05/31/20 04:30 A&P Assessment and plan (1) Pneumonia due to COVID-19 virus: Somewhat atypical as was positive for Covid April 29. Cannot rule out superimposed secondary bacterial pneumonia. Continue dexamethasone Completed 5 day course of remdesivir 05/28 Continue Eliquis 5 mg twice daily DisContinued Zyvox on ( 05/31) continue imipenem (05/29/2020) for now. PLan is to dc her on levofloxacin for 14 days. Discontinued ceftriaxone ( 05/29/2020) Albuterol as needed Continue imipenem, for UTI ( E.coli sensitive to imipenam ) and cellulitis respectively Status: Acute (2) Respiratory failure with hypoxia: Oxygen as needed Continue imipenem Discontinue ceftriaxone Currently on 2 L oxygen via NC. Has received Lasix intermittently.We will hold Lasix for today. We will reassess her respiratory and volume status in the a.m. and decide on giving Lasix. Status: Acute (3) Anemia: Currently hemoglobin is stable: At 8.5 . Monitor CBC Stool Hemoccult has been positive in the past. She has required blood transfusion in the past no need for transfusion now. Status: Acute (4) Cellulitis: Continue imipenem wound care Venous duplex negative for DVT Status: Acute (5) Acute kidney injury: Resolved. Currently Serum creatinine is at baseline Status: Acute (6) CVA (cerebral vascular accident): Continue aspirin Status: Acute Qualifiers: CVA mechanism: unspecified Qualified Code(s): I63.9 - Cerebral infarction, unspecified (7) Atrial fibrillation and flutter: currently rate controlled. Continue metoprolol and verapamil. Status: Acute (8) CKD (chronic kidney disease): Currently at baseline of serum creatinine. Status: Acute Additional A&P Information Acute kidney injury. Serum creatinine has peaked. Continue to monitor BMP Renal ultrasound without obstruction. Continue to monitor renal function. Probable UTI. On antibiotics history of moderate aortic stenosis. Atrial fibrillation. Continue metoprolol. Continue verapamil. GERD. Continue proton pump inhibitor Hypothyroidism. Continue home medication. TSH elevated. Thyroid hormone dosing adjusted slightly Hyperlipidemia. Continue statin History of atrial flutter/fibrillation, Full code Eliquis for DVT prophylaxis Attestations Medical Necessity Statement*: Patient needs to be in hospital for management of COVID pneumonia as well as left lower extremity cellulitis. 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
--- NOTE | 2020-05-31 19:23 | PC.NURSE ---
At shift change both shift nurses changed patient and provided perineum care. Patient was then two assist transferred with walker back to bed. Patient denies any complaints of pain, call light is within reach, v/s wnl, continue care.
[2020-05-31] MEDS: atorvastatin 40 mg Tablet PO (20:02)
--- NOTE | 2020-05-31 23:55 | PC.NURSE ---
Patient still resting in bed with eyes closed. Patient denies any pain at this time, V/S WNL. Call light is within reach, continue care.
[2020-06-01] VITALS (13 sets, daily range): BP systolic 107–138; BP diastolic 67–106; PULSE 73–112; RESP 16–38; TEMP 36.6–36.7; O2SAT 90–99
[2020-06-01 05:13] LABS: Hematocrit 32.4 % (37.0-47.0); Hemoglobin 8.8 g/dL (11.5-15.3); Lymphocytes # 0.4 10^3/uL (0.8-4.8); Lymphocytes % 9.7 %; Mean Corpuscular HGB Conc 27.2 g/dL (30.0-36.0); Mean Platelet Volume 11.6 fL (7.4-10.4); Monocytes # 0.2 10^3/uL (0.2-0.9); Monocytes % 4.3 %; Neutrophils # 3.78 10^3/uL (1.8-7.7); Neutrophils % 85.3 %; Nucleated Red Blood Cells % 0.5 %; Platelet Count 185 10^3/cmm (130-400); Red Blood Count 3.52 10^6/uL (4.1-5.3); White Blood Count 4.4 10^3/uL (4.0-10.0)
--- NOTE | 2020-06-01 05:30 | PC.NURSE ---
SHIFT SUMMARY: Patient is resting in bed in high fowlers position with eyes open. Patient has been compliant with staff and cares. Uneventful shift. V/S remain stable and WNL. Patient denies any pain. Patient continues to run afib on telemetry. Some intermittent coughing is present. 2+ pitting edema noted to BLE. Patient is incontinent and was changed 3 times on this shift with da care performed. No changes on patient. Call light is within reach. Continue care.
[2020-06-01 06:08] LABS: Alanine Aminotransferase 9 U/L (0-33); Albumin Level 3.1 g/dL (3.5-5.2); Alkaline Phosphatase 86 IU/L (35-105); Anion Gap 16.1 (5-19); Aspartate Amino Transferase 7 U/L (0-32); Blood Urea Nitrogen 52 mg/dL (8-23); Calcium 8.8 mg/dL (8.5-10.5); Carbon Dioxide 23 mmol/L (22-29); Chloride 105 mmol/L (98-107); Globulin 3.6 g/dL (1.3-4.6); Glucose 133 mg/dL (65-115); Osmolality Calculated 306 mOsm/kg (285-295); Potassium 4.1 mmol/L (3.5-5.1); Sodium 140 mmol/L (136-145); Total Bilirubin 0.3 mg/dL (0.15-1.2); Total Protein 6.7 g/dL (6.6-8.7)
[2020-06-01] MEDS: aspirin 81 mg Chew Tablet PO (08:04)
[2020-06-01] MEDS: levothyroxine 112 mcg Tablet 224 MCG PO (08:04)
[2020-06-01] MEDS: metoprolol tartrate 50 mg Tablet 100 MG PO (08:04)
[2020-06-01] MEDS: apixaban 5 mg Tablet PO (08:04)
[2020-06-01] MEDS: pantoprazole DR 40 mg Tablet PO (08:04)
--- NOTE | 2020-06-01 10:52 | P.DS_ITS ---
Discharge Providers Date of Admission: 05/24/20 18:16 Date of Discharge: June 01, 2020 Attending Provider at Admission: Artur Sánchez MD Attending Provider at Discharge: Kar Riggs MD Primary Care Provider: Kristian Rincon DO Diagnoses at Discharge Discharge Diagnosis (1) Pneumonia due to COVID-19 virus: Status: Chronic (2) Respiratory failure with hypoxia: Status: Chronic (3) Anemia: Status: Chronic (4) Cellulitis: Status: Acute (5) Acute kidney injury: Status: Resolved (6) CVA (cerebral vascular accident): Status: Chronic Qualifiers: CVA mechanism: unspecified Qualified Code(s): I63.9 - Cerebral infarction, unspecified (7) Atrial fibrillation and flutter: Status: Chronic (8) CKD (chronic kidney disease): Status: Chronic Reason for Visit Reason for Visit: WEAKNESS, R SHOULDER PAIN, NAUSEA, SOB Hospital Course Hospital Course: 74-year-old female past medical history of hypertension, hypothyroidism, PE, severe aortic stenosis, CKD, came in with chief complaint of worsening SOB , she was diagnosed with Covid on apr 29.She was managed for COVID PNA during the hospital stay for most part she remained on oxygen via nasal canula, as well occasionally on face mask. She completed 5 day remdesivir course,as well she was on dexamethasone.She is in eliquis for her prior h/o pulmonary embolism.She was also covered with broad spectrum abx ( zyvox and impenam ) for her cellulitis and possible UTI ( U/C Grew E.Coli ) as well as for possible possible superimposed bacterial pna.For her atrial fib/flutter she was on metoprolol and verapamil with good rate control.She also came in with PIETER ON CKD her serum creatinine has returned to baseline . She has responded well to current medical management and is being discharged in stable condition to retirement. Physical Exam Narrative: EXAM NARRATIVE: EXAM NARRATIVE: Narrative EXAM NARRATIVE: COMMON NORMALS: patient oriented x3 [facility] COMMON NORMALS: normocephalic, atraumatic, hearing grossly normal bilaterally and external ears normal HEAD & SCALP: normocephalic and atraumatic EXTERNAL EAR: Yes external ears normal Eye COMMON NORMALS: no scleral icterus GENERAL EYE: appearance normal, both eyes and all related structures Chest COMMONS NORMALS: normal inspection of the chest and normal palpation of entire chest wall CHEST: Yes Symmetrical chest wall rise Resp COMMON NORMALS: normal respiratory effort, No retractions, No use of accessory muscles and clear to auscultation bilaterally EFFORT & INSPECTION: Yes symmetric chest movement AUSCULTATION: clear to auscultation bilaterally Cardio COMMON NORMALS: regular rate, regular rhythm, S1 normal heart sound present, S2 normal heart sound present, No gallops present (Cardio), No murmurs present (Cardio), No rub (Cardio) and Peripheral pulses 2+ throughout RATE: regular rate RHYTHM: regular rhythm HEART SOUNDS: S1 normal heart sound present and S2 normal heart sound present PERIPHERAL PULSES: Peripheral pulses 2+ throughout GI COMMON NORMALS: Normal to inspection, nondistended, normoactive bowel sounds present, Soft to palpation, non-tender, No hepatosplenomegaly present and no masses AUSCULTATION: Yes normoactive bowel sounds PALPATION: Yes Soft to palpation and Yes No hepatosplenomegaly present RECTAL EXAM: deferred Extremity COMMON NORMALS: no clubbing, cyanosis or edema and no pedal edema NARRATIVE EXTREMITY EXAM: Left lower extremity erythema is present which is improving. Trace bilateral pitting lower extremity edema. Cardio COMMON NORMALS: No rub (Cardio) GI COMMON NORMALS: non-tender and no masses Extremity COMMON NORMALS: no clubbing, cyanosis or edema and no pedal edema Discharge Data Data Completed and Pending: Completed Studies During Hospitalization Category Date Time Status XR chest 1V renay ble [id number] Routine Exams 05/28/20 11:21 Completed XR chest 1V renay ble [id number] Stat Exams 05/24/20 14:20 Completed XR shoulder RT mi n 2V* [id number] Stat Exams 05/24/20 15:36 [place] [id number] Routin e Ultrasound 05/25/20 07:00 Completed US renal BI* [id number] Routine Ultrasound 05/25/20 14:18 Completed Pending at discharge Category Date Time Status SARS Covid-2 Anti gen Routine Lab 05/31/20 18:59 Ordered Labs from last 24 hours 06/01/20 06/01/20 04:10 04:10 WBC 4.4 RBC 3.52 L Hgb 8.8 L Hct 32.4 L MCV 92.0 MCH 25.0 L MCHC 27.2 L RDW 19.0 H Plt Count 185 MPV 11.6 H Neut % (Auto) 85.3 Lymph % (Auto) 9.7 [place] % (Auto) 4.3 Eos % (Auto) 0.0 Baso % (Auto) 0.0 Neut # (Auto) 3.78 Lymph # (Auto) 0.4 L [place] # (Auto) 0.2 Eos # (Auto) 0.0 Baso # (Auto) 0.0 Nucleated RBC % (a uto) 0.5 Nucleated RBCs # 0.0 Sodium 140 Potassium 4.1 Chloride 105 Carbon Dioxide 23 Anion Gap 16.1 BUN 52 H Creatinine 1.4 H GFR Calculation Not Reportable Glucose 133 H Calculated Osmolal ity 306 H Calcium 8.8 Total Bilirubin 0.3 AST 7 ALT 9 Alkaline Phosphata se 86 Total Protein 6.7 Albumin 3.1 L Globulin 3.6 Vitals: Last Vital Signs Temp 98.1 F 06/01/20 09:00 Pulse 101 H 06/01/20 10:00 Resp 22 H 06/01/20 10:00 BP 107/70 06/01/20 10:00 Pulse Ox 90 06/01/20 10:00 Discharge Plan Discharge Patient Disposition: Home Condition: Stable Prescriptions: New levofloxacin 500 mg tablet 500 mg PO DAILY 14 Days RF: 0 Medrol (Joaquin) 4 mg tablets,dose pack See Rx Instructions .ROUTE .COMPLEX Qty: 21 RF: 0 budesonide 90 mcg/actuation aerosol powdr breath activated 2 inh INHALATION Q12H Qty: 1 RF: 0 Continued levothyroxine 200 mcg tablet 200 mcg PO DAILY RF: 0 aspirin 81 mg Tablet,Chewable 81 mg PO DAILY RF: 0 atorvastatin 40 mg Tablet 40 mg PO BEDTIME Qty: 30 RF: 0 verapamil 40 mg Tablet 40 mg PO TID Qty: 90 RF: 0 Miralax 17 gram Powder In Packet 17 g PO BID Qty: 60 RF: 0 sennosides-docusate sodium 8.6-50 mg Tablet 2 tab PO BID Qty: 60 RF: 0 Vitamin B-12 1,000 mcg Tablet 1,000 mcg PO DAILY Qty: 14 RF: 0 Anucort-HC 25 mg Suppository 25 mg [place] BID Qty: 12 RF: 0 pantoprazole 40 mg Tablet,Delayed Release (Dr/Ec) 40 mg PO BID Qty: 60 RF: 0 metoprolol tartrate 50 mg Tablet 100 mg PO BID Qty: 120 RF: 0 folic acid 1 mg Tablet 1 mg PO DAILY Qty: 30 RF: 0 Eliquis 5 mg Tablet 2.5 mg PO BID Qty: 30 RF: 0 Discharge Orders: Discharge Order (Routine); Ordered 06/01/20 Ordered By: Kar Riggs Referrals: [facility] [Outside] (Make sure MD follows up with patient post discharge from hospital with covid PNA.) Discharge Diet: Usual diet Discharge Activity: Resume usual activity Discharge Date/Time: 06/01/20 15:27 Discharge Attestations Time Spent in Discharge Care*: greater than 30 min Specific Discharge Activities: Specific discharge activities: educating patient, discussing with pcp/other providers, discussing with case checker/social workers/dc planners, documenting/other paperwork and evaluating patient/reviewing data Status at Discharge: Cognitive status at discharge: cognitively intact , Behavioral status at discharge: cooperative , Functional status at discharge: independent ambulation Overall status at discharge: patient is back to baseline Quality Metrics Clinical Quality Measures During this hospital stay, did patient experience: None Coding Level of Care Code 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
[2020-06-01 11:35] LABS: SARS Covid-2 Antigen Negative (Negative)
== END 2020-06-01 15:27 | disposition home or self-care (01) | DRG 177 ==
LOC: ER 15:53 → ICU 19:10
PROVIDERS: Family Medicine; Nurse Practitioner Family; Admitting Provider Internal Medicine; Family Provider Electrodiagnostic Medicine; PCP Electrodiagnostic Medicine; Visit Provider Internal Medicine
DX: U07.1 COVID-19 (principal); J12.89 Other viral pneumonia; J96.01 Acute respiratory failure with hypoxia; J15.9 Unspecified bacterial pneumonia; Z68.41 Body mass index [BMI] 40.0-44.9, adult; L03.115 Cellulitis of right lower limb; N39.0 Urinary tract infection, site not specified; N17.9 Acute kidney failure, unspecified; M25.511 Pain in right shoulder; I12.9 Hypertensive chronic kidney disease with stage 1 through stage 4 chronic kidney disease, or unspecified chronic kidney disease; N18.2 Chronic kidney disease, stage 2 (mild); D63.1 Anemia in chronic kidney disease; I35.0 Nonrheumatic aortic (valve) stenosis; M19.90 Unspecified osteoarthritis, unspecified site; K21.9 Gastro-esophageal reflux disease without esophagitis; E78.5 Hyperlipidemia, unspecified; E03.9 Hypothyroidism, unspecified; E66.9 Obesity, unspecified; Z86.711 Personal history of pulmonary embolism; I48.91 Unspecified atrial fibrillation; K76.89 Other specified diseases of liver; Z79.01 Long term (current) use of anticoagulants; Z79.82 Long term (current) use of aspirin; B96.20 Unspecified Escherichia coli [E. coli] as the cause of diseases classified elsewhere; Z86.73 Personal history of transient ischemic attack (TIA), and cerebral infarction without residual deficits
CPT/HCPCS: 12345; 36415; 36416; 36600; 71045; 73030; 76770; 80053; 81001; 82550; 82728; 82803; 82962; 83605; 83615; 83735; 83880; 84145; 84443; 84484; 85025; 85378; 85384; 85610; 85730; 86140; 87040; 87077; 87086; 87186; 87426; 93005; 93970; 94640; 96375; 99284; J0696; J0743; J1100; J1940; J2020; J3535; J7030; J7040

== ENCOUNTER 2020-06-15 13:32 | Inpatient (IN) | payer MEDICARE, OTHER, MEDICAID, SELFPAY ==
[2020-06-15] VITALS (24 sets, daily range): BP systolic 72–112; BP diastolic 40–64; PULSE 49–119; RESP 10–38; TEMP 36.4–37.2; O2SAT 81–100; BMI 38.0
--- NOTE | 2020-06-15 13:48 | XR_ITS ---
WS: [id number] XR chest 1V portable [id number] REASON FOR EXAM: SOB FINDINGS: Compared to the previous examination of 05/28/2020, there has been reduction in the right pleural eff usion although likely a small amount remains. There is marked cardiomegaly. There continues to be opacification of the left lower chest unchanged compared to the previous examin ation of 05/28/2020. This suggests continuing presence of consolidation and/or pleural effusion. No new findings. XR/XR chest 1V portable [id number] IMPRESSION: Marked cardiomegaly. Significant improvement in the right pleural effusion. Left chest remains abnormal and relatively unchanged compared to the previous e xamination.
--- NOTE | 2020-06-15 13:50 | ECG_ITS ---
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: : 1945 Requested By: Kim Manzanares Order Number: [id number] Reading MD: RODRIGUEZ VILLALOBOS Measurements Intervals [place] Rate: 47 P: 134 SD: 203 QRS: 11 QRSD: 157 T: 53 QT: 564 QTc: 499 Interpretive Statements SINUS BRADYCARDIA WITH SINUS ARRHYTHMIA RIGHT BUNDLE BRANCH BLOCK [120+ ms QRS DURATION, UPRIGHT V1, 40+ ms S IN I/aVL/V4/V5/V6] PROLONGED QT INTERVAL CRITICAL TEST RESULT Compared to ECG 06/15/2020 15:53:49 Prolonged QT interval now present Atrial fibrillation no longer present Indeterminate axis no longer present Electronically Signed On 06-16-2020 19:29:30 METALIZING MACHINE OPERATOR AUTOMATIC by RODRIGUEZ VILLALOBOS [id number]
[2020-06-15 14:02] LABS: ABG PCO2 34.8 mmHg (35-45); ABG PH Result 7.27 (7.35-7.45); Arterial Blood Gas Hematocrit 31.6 % (37-47); Base Excess ABG -9.8 mmol/L (-2.0-2.0); Blood Gas Allen Test Pos; Blood Gas Sample Type Arterial; HCO3 ABG 16.1 mmol/L (22-26); PO2 ABG 50.9 mmHg (80.0-100.0)
[2020-06-15 14:03] LABS: Blood Gas Operator Identificat ED; Blood Gas Sample Site Radial, right; Oxygen Device NC
[2020-06-15 14:05] LABS: Basophils # 0.1 10^3/uL (0.0-0.1); Basophils % 0.9 %; Eosinophils # 0.1 10^3/uL (0.0-0.8); Eosinophils % 0.8 %; Hematocrit 37.9 % (37.0-47.0); Hemoglobin 10.1 g/dL (11.5-15.3); Lymphocytes # 0.9 10^3/uL (0.8-4.8); Mean Corpuscular HGB Conc 26.6 g/dL (30.0-36.0); Mean Corpuscular Hemoglobin 25.1 pg (28.0-34.0); Mean Platelet Volume 12.4 fL (7.4-10.4); Monocytes # 0.5 10^3/uL (0.2-0.9); Monocytes % 6.5 %; Neutrophils # 6.19 10^3/uL (1.8-7.7); Neutrophils % 79.3 %; Nucleated Red Blood Cells % 0.4 %; Platelet Count 197 10^3/cmm (130-400); Red Blood Count 4.03 10^6/uL (4.1-5.3); White Blood Count 7.8 10^3/uL (4.0-10.0)
[2020-06-15 14:25] LABS: Troponin(5th) Baseline 60 ng/L (0-10)
[2020-06-15 14:33] LABS: NT Pro B Type Natriuretic Pept 8909 pg/mL (0-450); Procalcitonin 0.15 ng/mL (0-0.5)
[2020-06-15] MEDS: metoclopramide 5 mg/mL SDV 2 mL IVP (14:34)
[2020-06-15 14:35] LABS: Fibrinogen 489 mg/dL (174-498)
[2020-06-15 14:42] LABS: D Dimer 2.11 ug/mIFEU (0-0.59)
[2020-06-15 14:44] LABS: Alanine Aminotransferase 77 U/L (0-33); Albumin Level 3.2 g/dL (3.5-5.2); Alkaline Phosphatase 159 IU/L (35-105); Blood Urea Nitrogen 53 mg/dL (8-23); Calcium 8.6 mg/dL (8.5-10.5); Carbon Dioxide 18 mmol/L (22-29); Chloride 101 mmol/L (98-107); Globulin 3.2 g/dL (1.3-4.6); Glucose 130 mg/dL (65-115); Lipase 12 U/L (13-60); Osmolality Calculated 304 mOsm/kg (285-295); Sodium 139 mmol/L (136-145); Total Bilirubin 1.2 mg/dL (0.15-1.2); Total Protein 6.4 g/dL (6.6-8.7)
[2020-06-15 14:50] LABS: Anion Gap 25.9 (5-19); Aspartate Amino Transferase 125 U/L (0-32); Potassium 5.9 mmol/L (3.5-5.1)
[2020-06-15 14:58] LABS: Ferritin 5069 ng/mL (15-150)
[2020-06-15 15:05] LABS: SARS Covid-2 Antigen Negative (Negative)
[2020-06-15 15:50] LABS: Reflex Lactate Order REFLEX LACTIC ORDERD
--- NOTE | 2020-06-15 15:50 | ECG_ITS ---
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 Psychiatrist: : 1945 Requested By: Kim Manzanares Order Number: [id number] Reading MD: RODRIGUEZ VILLALOBOS Measurements Intervals [place] Rate: 54 P: IA: -1 QRS: -6 QRSD: 150 T: 73 QT: 523 QTc: 498 Interpretive Statements ATRIAL FIBRILLATION WITH SLOW VENTRICULAR RESPONSE INDETERMINATE AXIS RIGHT BUNDLE BRANCH BLOCK [120+ ms QRS DURATION, UPRIGHT V1, 40+ ms S IN I/aVL/V4/V5/V6] Compared to ECG 06/15/2020 14:51:41 Indeterminate axis now present Right bundle-branch block now present Intraventricular conduction delay no longer present Electronically Signed On 06-16-2020 19:34:00 MERCHANT MARINER by RODRIGUEZ VILLALOBOS [email or web address]
--- NOTE | 2020-06-15 15:56 | PC.NURSE ---
EKG done at 1550 and shown to ER doctor
--- NOTE | 2020-06-15 16:09 | ED_ITS ---
Documented by User: Kim Lopez MD 06/25/20 17:06 HPI - SOB/Dyspnea General: Chief Complaint: Shortness of Breath/Dyspnea Stated Complaint: DIFFICULTY BREATHING/ RESPIRATORY DISTRESS Time Seen by Provider: 06/15/20 13:40 History of Present Illness: HPI Narrative: This patient is a 74-year-old female who presents to the emergency department today with shortness of breath. She was diagnosed with Covid and admitted to the hospital in May. She was discharged on 01 June and at that time had a negative Covid test. She said she was kept on quarantine for another 14 days in the retirement and is currently off quarantine. She is being treated for bacterial pneumonia with Levaquin. She is a little unclear as to whether she had had continued shortness of breath since her hospitalization or whether this is just worsened today. She also has a history of CHF. She is complaining of being thirsty. She denies chest pain. She denies vomiting or diarrhea. She denies fever. She is worried that she might have Covid again. Associated symptoms: Deny abdominal pain, chest pain, fever(s), nausea or vomiting Review of Systems General: Reports: 10 or more systems reviewed and unremarkable except in HPI and below Const: Denies: fever(s), chills, fatigue or malaise Eyes: Denies: change in vision ENMT: Denies: odynophagia Card: Reports: swelling of feet/ankles (Chronic with); Denies: chest pain Resp: Reports: dyspnea and productive cough; Denies: non-productive cough GI: Denies: abdominal pain, nausea or vomiting : Denies: flank pain or difficulty voiding Musc: Denies: neck pain or back pain Skin/Breast: Denies: rash Neuro: Denies: headache(s), numbness in extremities or weakness in extremities Liam/Lymph: Denies: easy bruising or easy bleeding PFS ED PFSH: Medical History (Updated 06/24/20 @ 15:26 by Kar Riggs MD) Acute kidney injury Anemia Aortic stenosis Atrial fibrillation and flutter Chronic kidney disease, stage II (mild) CKD (chronic kidney disease) CVA (cerebral vascular accident) DJD (degenerative joint disease) GERD (gastroesophageal reflux disease) Hyperlipidemia Hypertension Hypothyroidism Obesity Pneumonia due to COVID-19 virus Pulmonary embolism Respiratory failure with hypoxia UTI (urinary tract infection) Surgical History History of cholecystectomy History of hernia repair History of tubal ligation Family History Other CAD (coronary artery disease) Social History Smoking and tobacco status: never smoked Alcohol intake: never Housing: Halfway Current occupational status: retired Physical Exam Const: COMMON NORMALS: patient oriented x3, no limitations and alert GENERAL APPEARANCE: cooperative HENMT: HEAD & SCALP: normal to inspection FACE & SINUS: normal facial exam Eye: GENERAL EYE: appearance normal, both eyes and all related structures Neck/C-Spine: COMMON NORMALS: supple, no meningeal signs and no JVD Chest: COMMONS NORMALS: normal inspection of the chest Resp: EFFORT & INSPECTION: Yes tachypneic, Yes respiratory distress and Yes uses accessory muscles AUSCULTATION: diminished lung sounds Cardio: COMMON NORMALS: no JVD, regular rate, regular rhythm and No murmurs present (Cardio) RATE: regular rate RHYTHM: regular rhythm GI: COMMON NORMALS: Normal to inspection, nondistended, normoactive bowel sounds present, Soft to palpation and non-tender INSPECTION: Yes normal to inspection AUSCULTATION: Yes normoactive bowel sounds PALPATION: Yes Soft to palpation Back/Pelvis: COMMON NORMALS: thoracic and lumbar spine normal to inspection Extremity: NARRATIVE EXTREMITY EXAM: Marked swelling of both lower extremities. The right lower leg is in a wound boot type wrap. The left has a Kerlix type wrap. Neuro: COMMON NORMALS: patient oriented x3, moves all extremities, no focal motor deficits and no sensory deficits noted SENSORIUM/ORIENTATION: Yes alert MENINGEAL SIGNS: Yes no meningeal signs Psych: COMMON NORMALS: mental status grossly normal, cooperative and normal affect Skin: COMMON NORMALS: no rashes or lesions noted and turgor normal GENERAL SKIN EXAM: no rashes or lesions noted and turgor normal Course ED course: The patient was ruled out for Covid today her rapid antigen was negative. Her ABG showed a pH of 7.27. PCO2 of 34.8. P PO2 of 50.9. She came in on 6 L of oxygen and her sat was only in the mid 80s. We tried her on BiPAP briefly but she did not really tolerate it well. She did tolerate high flow nasal cannula fairly well and we were able to get her sats up into the low 90s. She said she feels better with the high flow. Her chest x-ray shows resolution of her pleural effusions but she continues to have marked cardiomegaly. BNP was 8909. D-dimer was 2.11 although the significance of that is not clear. Procalcitonin was 0.15. She has new onset renal failure. She has had chronic renal insufficiency but her creatinine was in the 1 range at her discharge. Today her creatinine is 3.0 with a BUN of 53. Her potassium is 5.9. Her CO2 is 18. LFTs are slightly bumped with a total bilirubin of 1.2. AST is 125, ALT 77, alk phos 159. Her lactate was elevated at 7.0. She continues to be awake, alert, very uncomfortable in the bed and requesting to be moved around quite frequently. Her blood pressure is on the low side. Looking back at her admission she tends to run in the 100 systolic range. She has been in the 80s and 90s here. I think she is overly dry and go to give her a bolus of fluid although I am concerned about that worsening her respiratory status. She may need some sort of inotrope to improve her perfusion. She also has a history of PE and even though she is on Eliquis that is still a concern. However with her renal function I cannot order a CTA and I do not think a VQ scan is good to be useful given the limitations of her body habitus and abnormal chest x-ray. Vital Signs: Vital signs: Vital Signs Temperature 97.6 F 06/25/20 04:00 Pulse Rate 85 06/25/20 16:00 Respiratory Rate 30 H 06/25/20 16:00 Blood Pressure 88/59 06/25/20 13:00 Pulse Oximetry 99 06/25/20 16:00 MDM - SOB/Dyspnea Lab Data: Labs: Lab Results 06/15/20 06/15/20 06/15/20 Range/Units 04:57 13:53 13:55 WBC 7.8 (4.0-10.0) 10^3/ uL RBC 4.03 L (4.1-5.3) 10^6/u L Hgb 10.1 L (11.5-15.3) g/dL Hct 37.9 (37.0-47.0) % MCV 94.0 (81-99) fL MCH 25.1 L (28.0-34.0) pg MCHC 26.6 L (30.0-36.0) g/dL RDW 20.0 H (12.1-15.1) % Plt Count 197 (130-400) 10^3/c mm MPV 12.4 H (7.4-10.4) fL Neut % (Auto) 79.3 % Lymph % (Auto) 12.0 % Rains % (Auto) 6.5 % Eos % (Auto) 0.8 % Baso % (Auto) 0.9 % Neut # (Auto) 6.19 (1.8-7.7) 10^3/u L Lymph # (Auto) 0.9 (0.8-4.8) 10^3/u L Rains # (Auto) 0.5 (0.2-0.9) 10^3/u L Eos # (Auto) 0.1 (0.0-0.8) 10^3/u L Baso # (Auto) 0.1 (0.0-0.1) 10^3/u L Nucleated RBC % (a uto) 0.4 % Nucleated RBCs # 0.0 /100WBC Fibrinogen (174-498) mg/dL D-Dimer (0-0.59) ug/mIFE U Specimen Type Arterial Sample Site Radial, right ABG pH 7.27 L (7.35-7.45) ABG pCO2 34.8 L (35-45) mmHg ABG pO2 50.9 L (80.0-100.0) mmH g ABG HCO3 16.1 L (22-26) mmol/L ABG Base Excess -9.8 L (-2.0-2.0) mmol/ L Kulwinder Test Pos Hematocrit 31.6 L (37-47) % O2 Delivery Device Nc O2 Liters/Min 6.0 % FiO2 44.0 % Principal Software Engineer ID Ed Blood Gas Notified Time Sodium (136-145) mmol/L Potassium (3.5-5.1) mmol/L Chloride (98-107) mmol/L Carbon Dioxide (22-29) mmol/L Anion Gap (5-19) BUN (8-23) mg/dL Creatinine (0.5-0.9) mg/dL GFR Calculation Glucose (65-115) mg/dL Calculated Osmolal ity (285-295) mOsm/k g Lactic Acid (0.5-2.2) mmol/L Lactic Acid (Sepsi s) Calcium (8.5-10.5) mg/dL Ferritin (15-150) ng/mL Total Bilirubin (0.15-1.2) mg/dL AST (0-32) U/L ALT (0-33) U/L Alkaline Phosphata se (35-105) IU/L Creatine Kinase (26-192) U/L Troponin T Baselin e (0-10) ng/L Troponin T 120 Min [place] (0-10) ng/L Delta Troponin T (0-10) ABS# NT-Pro-B Natriuret Pep (0-450) pg/mL Total Protein (6.6-8.7) g/dL Albumin (3.5-5.2) g/dL Globulin (1.3-4.6) g/dL Lipase (13-60) U/L Procalcitonin (0-0.5) ng/mL Influenza Type A A g Negative (Negative) Influenza Type B A g Negative (Negative) SARS-CoV-2 Ag (Rap id) (Negative) 06/15/20 06/15/20 06/15/20 Range/Units 13:55 13:55 13:55 WBC (4.0-10.0) 10^3/ uL RBC (4.1-5.3) 10^6/u L Hgb (11.5-15.3) g/dL Hct (37.0-47.0) % MCV (81-99) fL MCH (28.0-34.0) pg MCHC (30.0-36.0) g/dL RDW (12.1-15.1) % Plt Count (130-400) 10^3/c mm MPV (7.4-10.4) fL Neut % (Auto) % Lymph % (Auto) % Rains % (Auto) % Eos % (Auto) % Baso % (Auto) % Neut # (Auto) (1.8-7.7) 10^3/u L Lymph # (Auto) (0.8-4.8) 10^3/u L Rains # (Auto) (0.2-0.9) 10^3/u L Eos # (Auto) (0.0-0.8) 10^3/u L Baso # (Auto) (0.0-0.1) 10^3/u L Nucleated RBC % (a uto) % Nucleated RBCs # /100WBC Fibrinogen 489 (174-498) mg/dL D-Dimer 2.11 H (0-0.59) ug/mIFE U Specimen Type Sample Site ABG pH (7.35-7.45) ABG pCO2 (35-45) mmHg ABG pO2 (80.0-100.0) mmH g ABG HCO3 (22-26) mmol/L ABG Base Excess (-2.0-2.0) mmol/ L Kulwinder Test Hematocrit (37-47) % O2 Delivery Device O2 Liters/Min % FiO2 % Principal Software Engineer ID Blood Gas Notified Time Sodium 139 (136-145) mmol/L Potassium 5.9 H (3.5-5.1) mmol/L Chloride 101 (98-107) mmol/L Carbon Dioxide 18 L (22-29) mmol/L Anion Gap 25.9 H (5-19) BUN 53 H (8-23) mg/dL Creatinine 3.0 H (0.5-0.9) mg/dL GFR Calculation Not Reportable Glucose 130 H (65-115) mg/dL Calculated Osmolal ity 304 H (285-295) mOsm/k g Lactic Acid 7.0 H* (0.5-2.2) mmol/L Lactic Acid (Sepsi s) Calcium 8.6 (8.5-10.5) mg/dL Ferritin 5069 H (15-150) ng/mL Total Bilirubin 1.2 (0.15-1.2) mg/dL AST 125 H (0-32) U/L ALT 77 H (0-33) U/L Alkaline Phosphata se 159 H (35-105) IU/L Creatine Kinase (26-192) U/L Troponin T Baselin e (0-10) ng/L Troponin T 120 Min [place] (0-10) ng/L Delta Troponin T (0-10) ABS# NT-Pro-B Natriuret Pep 8909 H (0-450) pg/mL Total Protein 6.4 L (6.6-8.7) g/dL Albumin 3.2 L (3.5-5.2) g/dL Globulin 3.2 (1.3-4.6) g/dL Lipase 12 L (13-60) U/L Procalcitonin 0.15 (0-0.5) ng/mL Influenza Type A A g (Negative) Influenza Type B A g (Negative) SARS-CoV-2 Ag (Rap id) (Negative) 06/15/20 06/15/20 06/15/20 Range/Units 13:55 14:39 16:35 WBC (4.0-10.0) 10^3/ uL RBC (4.1-5.3) 10^6/u L Hgb (11.5-15.3) g/dL Hct (37.0-47.0) % MCV (81-99) fL MCH (28.0-34.0) pg MCHC (30.0-36.0) g/dL RDW (12.1-15.1) % Plt Count (130-400) 10^3/c mm MPV (7.4-10.4) fL Neut % (Auto) % Lymph % (Auto) % Rains % (Auto) % Eos % (Auto) % Baso % (Auto) % Neut # (Auto) (1.8-7.7) 10^3/u L Lymph # (Auto) (0.8-4.8) 10^3/u L Rains # (Auto) (0.2-0.9) 10^3/u L Eos # (Auto) (0.0-0.8) 10^3/u L Baso # (Auto) (0.0-0.1) 10^3/u L Nucleated RBC % (a uto) % Nucleated RBCs # /100WBC Fibrinogen (174-498) mg/dL D-Dimer (0-0.59) ug/mIFE U Specimen Type Arterial Sample Site Radial, right ABG pH 7.21 L (7.35-7.45) ABG pCO2 38.1 (35-45) mmHg ABG pO2 52.6 L (80.0-100.0) mmH g ABG HCO3 15.2 L (22-26) mmol/L ABG Base Excess -11.8 L (-2.0-2.0) mmol/ L Kulwinder Test Pos Hematocrit 30.8 L (37-47) % O2 Delivery Device Not Reportable O2 Liters/Min 60.0 % FiO2 80.0 % Principal Software Engineer ID Ed Blood Gas Notified Time 1820 Sodium (136-145) mmol/L Potassium (3.5-5.1) mmol/L Chloride (98-107) mmol/L Carbon Dioxide (22-29) mmol/L Anion Gap (5-19) BUN (8-23) mg/dL Creatinine (0.5-0.9) mg/dL GFR Calculation Glucose (65-115) mg/dL Calculated Osmolal ity (285-295) mOsm/k g Lactic Acid (0.5-2.2) mmol/L Lactic Acid (Sepsi s) Calcium (8.5-10.5) mg/dL Ferritin (15-150) ng/mL Total Bilirubin (0.15-1.2) mg/dL AST (0-32) U/L ALT (0-33) U/L Alkaline Phosphata se (35-105) IU/L Creatine Kinase (26-192) U/L Troponin T Baselin e 60 H (0-10) ng/L Troponin T 120 Min [place] (0-10) ng/L Delta Troponin T (0-10) ABS# NT-Pro-B Natriuret Pep (0-450) pg/mL Total Protein (6.6-8.7) g/dL Albumin (3.5-5.2) g/dL Globulin (1.3-4.6) g/dL Lipase (13-60) U/L Procalcitonin (0-0.5) ng/mL Influenza Type A A g (Negative) Influenza Type B A g (Negative) SARS-CoV-2 Ag (Rap id) Negative (Negative) 06/15/20 06/15/20 06/15/20 Range/Units 17:00 17:00 17:00 WBC (4.0-10.0) 10^3/ uL RBC (4.1-5.3) 10^6/u L Hgb (11.5-15.3) g/dL Hct (37.0-47.0) % MCV (81-99) fL MCH (28.0-34.0) pg MCHC (30.0-36.0) g/dL RDW (12.1-15.1) % Plt Count (130-400) 10^3/c mm MPV (7.4-10.4) fL Neut % (Auto) % Lymph % (Auto) % Rains % (Auto) % Eos % (Auto) % Baso % (Auto) % Neut # (Auto) (1.8-7.7) 10^3/u L Lymph # (Auto) (0.8-4.8) 10^3/u L Rains # (Auto) (0.2-0.9) 10^3/u L Eos # (Auto) (0.0-0.8) 10^3/u L Baso # (Auto) (0.0-0.1) 10^3/u L Nucleated RBC % (a uto) % Nucleated RBCs # /100WBC Fibrinogen (174-498) mg/dL D-Dimer (0-0.59) ug/mIFE U Specimen Type Sample Site ABG pH (7.35-7.45) ABG pCO2 (35-45) mmHg ABG pO2 (80.0-100.0) mmH g ABG HCO3 (22-26) mmol/L ABG Base Excess (-2.0-2.0) mmol/ L Kulwinder Test Hematocrit (37-47) % O2 Delivery Device O2 Liters/Min % FiO2 % Principal Software Engineer ID Blood Gas Notified Time Sodium (136-145) mmol/L Potassium (3.5-5.1) mmol/L Chloride (98-107) mmol/L Carbon Dioxide (22-29) mmol/L Anion Gap (5-19) BUN (8-23) mg/dL Creatinine (0.5-0.9) mg/dL GFR Calculation Glucose (65-115) mg/dL Calculated Osmolal ity (285-295) mOsm/k g Lactic Acid (0.5-2.2) mmol/L Lactic Acid (Sepsi s) Cancelled Calcium (8.5-10.5) mg/dL Ferritin (15-150) ng/mL Total Bilirubin (0.15-1.2) mg/dL AST (0-32) U/L ALT (0-33) U/L Alkaline Phosphata se (35-105) IU/L Creatine Kinase 126 (26-192) U/L Troponin T Baselin e (0-10) ng/L Troponin T 120 Min [place] 64.50 H (0-10) ng/L Delta Troponin T 4.50 (0-10) ABS# NT-Pro-B Natriuret Pep (0-450) pg/mL Total Protein (6.6-8.7) g/dL Albumin (3.5-5.2) g/dL Globulin (1.3-4.6) g/dL Lipase (13-60) U/L Procalcitonin (0-0.5) ng/mL Influenza Type A A g (Negative) Influenza Type B A g (Negative) SARS-CoV-2 Ag (Rap id) (Negative) Discharge Plan Discharge Admit Provider: Kelsy Ramirez Coding Level of Care Code ED Veneer Jointer Returner for g Fwd Exam Comprehensive Documented by User: Courtney Gonzalez 06/15/20 21:27 HPI - SOB/Dyspnea General: Chief Complaint: Shortness of Breath/Dyspnea Stated Complaint: DIFFICULTY BREATHING/ RESPIRATORY DISTRESS Time Seen by Provider: 06/15/20 13:40 [facility] ED PFSH: Medical History (Updated 06/24/20 @ 15:26 by Kar Riggs MD) Acute kidney injury Anemia Aortic stenosis Atrial fibrillation and flutter Chronic kidney disease, stage II (mild) CKD (chronic kidney disease) CVA (cerebral vascular accident) DJD (degenerative joint disease) GERD (gastroesophageal reflux disease) Hyperlipidemia Hypertension Hypothyroidism Obesity Pneumonia due to COVID-19 virus Pulmonary embolism Respiratory failure with hypoxia UTI (urinary tract infection) Surgical History History of cholecystectomy History of hernia repair History of tubal ligation Family History Other CAD (coronary artery disease) Social History Smoking and tobacco status: never smoked Alcohol intake: never Housing: Halfway Current occupational status: retired Procedures Central Line Placement Right Femoral: Time Out Performed: Yes Patient Placed on Monitor/Pulse Ox: Yes Prep: mask, gown and gloves Central Line Prep: Povidone-Iodine 1% and Chlorhexidine scrub Local Anesthetic: lidocaine 1% Amount of anesthesia used (mL): 10 Central Line Lumen Inserted: triple Post Procedure: sutured in place, good blood return, all ports aspirated, flushed, capped and sterile dressing applied Patient Tolerated Procedure: well Course Vital Signs: Vital signs: Vital Signs Temperature 97.6 F 06/25/20 04:00 Pulse Rate 85 06/25/20 16:00 Respiratory Rate 30 H 06/25/20 16:00 Blood Pressure 88/59 06/25/20 13:00 Pulse Oximetry 99 06/25/20 16:00 MDM - SOB/Dyspnea Lab Data: Labs: Lab Results 06/15/20 06/15/20 06/15/20 Range/Units 04:57 13:53 13:55 WBC 7.8 (4.0-10.0) 10^3/ uL RBC 4.03 L (4.1-5.3) 10^6/u L Hgb 10.1 L (11.5-15.3) g/dL Hct 37.9 (37.0-47.0) % MCV 94.0 (81-99) fL MCH 25.1 L (28.0-34.0) pg MCHC 26.6 L (30.0-36.0) g/dL RDW 20.0 H (12.1-15.1) % Plt Count 197 (130-400) 10^3/c mm MPV 12.4 H (7.4-10.4) fL Neut % (Auto) 79.3 % Lymph % (Auto) 12.0 % Rains % (Auto) 6.5 % Eos % (Auto) 0.8 % Baso % (Auto) 0.9 % Neut # (Auto) 6.19 (1.8-7.7) 10^3/u L Lymph # (Auto) 0.9 (0.8-4.8) 10^3/u L Rains # (Auto) 0.5 (0.2-0.9) 10^3/u L Eos # (Auto) 0.1 (0.0-0.8) 10^3/u L Baso # (Auto) 0.1 (0.0-0.1) 10^3/u L Nucleated RBC % (a uto) 0.4 % Nucleated RBCs # 0.0 /100WBC Fibrinogen (174-498) mg/dL D-Dimer (0-0.59) ug/mIFE U Specimen Type Arterial Sample Site Radial, right ABG pH 7.27 L (7.35-7.45) ABG pCO2 34.8 L (35-45) mmHg ABG pO2 50.9 L (80.0-100.0) mmH g ABG HCO3 16.1 L (22-26) mmol/L ABG Base Excess -9.8 L (-2.0-2.0) mmol/ L Kulwinder Test Pos Hematocrit 31.6 L (37-47) % O2 Delivery Device Nc O2 Liters/Min 6.0 % FiO2 44.0 % Principal Software Engineer ID Ed Blood Gas Notified Time Sodium (136-145) mmol/L Potassium (3.5-5.1) mmol/L Chloride (98-107) mmol/L Carbon Dioxide (22-29) mmol/L Anion Gap (5-19) BUN (8-23) mg/dL Creatinine (0.5-0.9) mg/dL GFR Calculation Glucose (65-115) mg/dL Calculated Osmolal ity (285-295) mOsm/k g Lactic Acid (0.5-2.2) mmol/L Lactic Acid (Sepsi s) Calcium (8.5-10.5) mg/dL Ferritin (15-150) ng/mL Total Bilirubin (0.15-1.2) mg/dL AST (0-32) U/L ALT (0-33) U/L Alkaline Phosphata se (35-105) IU/L Creatine Kinase (26-192) U/L Troponin T Baselin e (0-10) ng/L Troponin T 120 Min [place] (0-10) ng/L Delta Troponin T (0-10) ABS# NT-Pro-B Natriuret Pep (0-450) pg/mL Total Protein (6.6-8.7) g/dL Albumin (3.5-5.2) g/dL Globulin (1.3-4.6) g/dL Lipase (13-60) U/L Procalcitonin (0-0.5) ng/mL Influenza Type A A g Negative (Negative) Influenza Type B A g Negative (Negative) SARS-CoV-2 Ag (Rap id) (Negative) 06/15/20 06/15/20 06/15/20 Range/Units 13:55 13:55 13:55 WBC (4.0-10.0) 10^3/ uL RBC (4.1-5.3) 10^6/u L Hgb (11.5-15.3) g/dL Hct (37.0-47.0) % MCV (81-99) fL MCH (28.0-34.0) pg MCHC (30.0-36.0) g/dL RDW (12.1-15.1) % Plt Count (130-400) 10^3/c mm MPV (7.4-10.4) fL Neut % (Auto) % Lymph % (Auto) % Rains % (Auto) % Eos % (Auto) % Baso % (Auto) % Neut # (Auto) (1.8-7.7) 10^3/u L Lymph # (Auto) (0.8-4.8) 10^3/u L Rains # (Auto) (0.2-0.9) 10^3/u L Eos # (Auto) (0.0-0.8) 10^3/u L Baso # (Auto) (0.0-0.1) 10^3/u L Nucleated RBC % (a uto) % Nucleated RBCs # /100WBC Fibrinogen 489 (174-498) mg/dL D-Dimer 2.11 H (0-0.59) ug/mIFE U Specimen Type Sample Site ABG pH (7.35-7.45) ABG pCO2 (35-45) mmHg ABG pO2 (80.0-100.0) mmH g ABG HCO3 (22-26) mmol/L ABG Base Excess (-2.0-2.0) mmol/ L Kulwinder Test Hematocrit (37-47) % O2 Delivery Device O2 Liters/Min % FiO2 % Principal Software Engineer ID Blood Gas Notified Time Sodium 139 (136-145) mmol/L Potassium 5.9 H (3.5-5.1) mmol/L Chloride 101 (98-107) mmol/L Carbon Dioxide 18 L (22-29) mmol/L Anion Gap 25.9 H (5-19) BUN 53 H (8-23) mg/dL Creatinine 3.0 H (0.5-0.9) mg/dL GFR Calculation Not Reportable Glucose 130 H (65-115) mg/dL Calculated Osmolal ity 304 H (285-295) mOsm/k g Lactic Acid 7.0 H* (0.5-2.2) mmol/L Lactic Acid (Sepsi s) Calcium 8.6 (8.5-10.5) mg/dL Ferritin 5069 H (15-150) ng/mL Total Bilirubin 1.2 (0.15-1.2) mg/dL AST 125 H (0-32) U/L ALT 77 H (0-33) U/L Alkaline Phosphata se 159 H (35-105) IU/L Creatine Kinase (26-192) U/L Troponin T Baselin e (0-10) ng/L Troponin T 120 Min [place] (0-10) ng/L Delta Troponin T (0-10) ABS# NT-Pro-B Natriuret Pep 8909 H (0-450) pg/mL Total Protein 6.4 L (6.6-8.7) g/dL Albumin 3.2 L (3.5-5.2) g/dL Globulin 3.2 (1.3-4.6) g/dL Lipase 12 L (13-60) U/L Procalcitonin 0.15 (0-0.5) ng/mL Influenza Type A A g (Negative) Influenza Type B A g (Negative) SARS-CoV-2 Ag (Rap id) (Negative) 06/15/20 06/15/20 06/15/20 Range/Units 13:55 14:39 16:35 WBC (4.0-10.0) 10^3/ uL RBC (4.1-5.3) 10^6/u L Hgb (11.5-15.3) g/dL Hct (37.0-47.0) % MCV (81-99) fL MCH (28.0-34.0) pg MCHC (30.0-36.0) g/dL RDW (12.1-15.1) % Plt Count (130-400) 10^3/c mm MPV (7.4-10.4) fL Neut % (Auto) % Lymph % (Auto) % Rains % (Auto) % Eos % (Auto) % Baso % (Auto) % Neut # (Auto) (1.8-7.7) 10^3/u L Lymph # (Auto) (0.8-4.8) 10^3/u L Rains # (Auto) (0.2-0.9) 10^3/u L Eos # (Auto) (0.0-0.8) 10^3/u L Baso # (Auto) (0.0-0.1) 10^3/u L Nucleated RBC % (a uto) % Nucleated RBCs # /100WBC Fibrinogen (174-498) mg/dL D-Dimer (0-0.59) ug/mIFE U Specimen Type Arterial Sample Site Radial, right ABG pH 7.21 L (7.35-7.45) ABG pCO2 38.1 (35-45) mmHg ABG pO2 52.6 L (80.0-100.0) mmH g ABG HCO3 15.2 L (22-26) mmol/L ABG Base Excess -11.8 L (-2.0-2.0) mmol/ L Kulwinder Test Pos Hematocrit 30.8 L (37-47) % O2 Delivery Device Not Reportable O2 Liters/Min 60.0 % FiO2 80.0 % Principal Software Engineer ID Ed Blood Gas Notified Time 1820 Sodium (136-145) mmol/L Potassium (3.5-5.1) mmol/L Chloride (98-107) mmol/L Carbon Dioxide (22-29) mmol/L Anion Gap (5-19) BUN (8-23) mg/dL Creatinine (0.5-0.9) mg/dL GFR Calculation Glucose (65-115) mg/dL Calculated Osmolal ity (285-295) mOsm/k g Lactic Acid (0.5-2.2) mmol/L Lactic Acid (Sepsi s) Calcium (8.5-10.5) mg/dL Ferritin (15-150) ng/mL Total Bilirubin (0.15-1.2) mg/dL AST (0-32) U/L ALT (0-33) U/L Alkaline Phosphata se (35-105) IU/L Creatine Kinase (26-192) U/L Troponin T Baselin e 60 H (0-10) ng/L Troponin T 120 Min [place] (0-10) ng/L Delta Troponin T (0-10) ABS# NT-Pro-B Natriuret Pep (0-450) pg/mL Total Protein (6.6-8.7) g/dL Albumin (3.5-5.2) g/dL Globulin (1.3-4.6) g/dL Lipase (13-60) U/L Procalcitonin (0-0.5) ng/mL Influenza Type A A g (Negative) Influenza Type B A g (Negative) SARS-CoV-2 Ag (Rap id) Negative (Negative) 06/15/20 06/15/20 06/15/20 Range/Units 17:00 17:00 17:00 WBC (4.0-10.0) 10^3/ uL RBC (4.1-5.3) 10^6/u L Hgb (11.5-15.3) g/dL Hct (37.0-47.0) % MCV (81-99) fL MCH (28.0-34.0) pg MCHC (30.0-36.0) g/dL RDW (12.1-15.1) % Plt Count (130-400) 10^3/c mm MPV (7.4-10.4) fL Neut % (Auto) % Lymph % (Auto) % Rains % (Auto) % Eos % (Auto) % Baso % (Auto) % Neut # (Auto) (1.8-7.7) 10^3/u L Lymph # (Auto) (0.8-4.8) 10^3/u L Rains # (Auto) (0.2-0.9) 10^3/u L Eos # (Auto) (0.0-0.8) 10^3/u L Baso # (Auto) (0.0-0.1) 10^3/u L Nucleated RBC % (a uto) % Nucleated RBCs # /100WBC Fibrinogen (174-498) mg/dL D-Dimer (0-0.59) ug/mIFE U Specimen Type Sample Site ABG pH (7.35-7.45) ABG pCO2 (35-45) mmHg ABG pO2 (80.0-100.0) mmH g ABG HCO3 (22-26) mmol/L ABG Base Excess (-2.0-2.0) mmol/ L Kulwinder Test Hematocrit (37-47) % O2 Delivery Device O2 Liters/Min % FiO2 % Principal Software Engineer ID Blood Gas Notified Time Sodium (136-145) mmol/L Potassium (3.5-5.1) mmol/L Chloride (98-107) mmol/L Carbon Dioxide (22-29) mmol/L Anion Gap (5-19) BUN (8-23) mg/dL Creatinine (0.5-0.9) mg/dL GFR Calculation Glucose (65-115) mg/dL Calculated Osmolal ity (285-295) mOsm/k g Lactic Acid (0.5-2.2) mmol/L Lactic Acid (Sepsi s) Cancelled Calcium (8.5-10.5) mg/dL Ferritin (15-150) ng/mL Total Bilirubin (0.15-1.2) mg/dL AST (0-32) U/L ALT (0-33) U/L Alkaline Phosphata se (35-105) IU/L Creatine Kinase 126 (26-192) U/L Troponin T Baselin e (0-10) ng/L Troponin T 120 Min [place] 64.50 H (0-10) ng/L Delta Troponin T 4.50 (0-10) ABS# NT-Pro-B Natriuret Pep (0-450) pg/mL Total Protein (6.6-8.7) g/dL Albumin (3.5-5.2) g/dL Globulin (1.3-4.6) g/dL Lipase (13-60) U/L Procalcitonin (0-0.5) ng/mL Influenza Type A A g (Negative) Influenza Type B A g (Negative) SARS-CoV-2 Ag (Rap id) (Negative) Discharge Plan Discharge Admit Provider: Kelsy Ramirez Coding Level of Care Code ED Veneer Jointer Returner for Chg Fwd Exam Comprehensive
[2020-06-15 16:45] LABS: ABG PCO2 38.1 mmHg (35-45); ABG PH Result 7.21 (7.35-7.45); Arterial Blood Gas Hematocrit 30.8 % (37-47); Base Excess ABG -11.8 mmol/L (-2.0-2.0); Blood Gas Allen Test Pos; Blood Gas Sample Type Arterial; HCO3 ABG 15.2 mmol/L (22-26); PO2 ABG 52.6 mmHg (80.0-100.0)
[2020-06-15 16:46] LABS: Blood Gas Operator Identificat ED; Blood Gas Sample Site Radial, right
[2020-06-15] MEDS: sodium chloride 0.9% 500 ML 999 ML IV (16:56)
--- NOTE | 2020-06-15 18:19 | PM.HP ---
Providers/Chief Complaint Admitting Physician: Kelsy Ramirez MD Primary Care Provider: Kristian Rincon DO Chief Complaint: DIFFICULTY BREATHING/ RESPIRATORY DISTRESS History of Present Illness Krystal Andrews is a 74 year old female with PMHx noted below, presents from [facility] via ambulance following noted hypoxia despite continued supplemental oxygen use. Patient was admitted at our facility last month during which time she was treated for COVID-19 pneumonia then [facility]. Per penitentiary staff that I spoke to patient seemed to have been recovering well at the penitentiary and was just at the tail end of her 14-day quarantine period. She had consistently been on 3 L nasal cannula with saturations in the low to mid 90s. However today they were unable to get her saturations past mid to high 80s at which point to the call for an ambulance to transport her to the hospital for further evaluation. She is currently requiring continuous BiPAP and is quite somnolent, [id number] is at bedside and does provide some information. Otherwise history is obtained directly from penitentiary staff as well as review of medical record. She is currently on FiO2 of 80% with ABG showing hypoxia with a PO2 of 52.6. Further work-up so far indicates a white count of 7.8, hemoglobin of 10.1, D-dimer of 2.11, potassium of 5.9, anion gap of 25.9, BUN of 53, creatinine of 3.0, lactic acid of 7, transaminitis, elevated troponins though with no significant delta, BNP of 8909. Chest x-ray shows some improvement on the right though with continued consolidation versus pleural effusion on the left. Rapid Covid testing is negative. She has received a bolus of normal saline and 40 mg dose of IV Lasix. Repeat ABG has been requested and she has developed further hypotension requiring initiation of pressor support. Due to continued risk for further decompensation including intubation she will require ICU care. Review of Systems Narrative: -obtained from family and penitentiary staff Const: Denies: fever(s) or chills Card: Reports: swelling of feet/ankles Resp: Reports: dyspnea, non-productive cough (chronic) and other (hypoxia) Neuro: Denies: frequent falls Medications/Allergies Home Medications Medication Instructions Recorded Confirmed Last Taken Type aspirin 81 mg PO DAILY 09/21/19 06/15/20 06/15/20 History levothyroxine 225 mcg PO DAILY 09/21/19 06/15/20 06/15/20 History Eliquis 2.5 mg PO BID #30 tab 10/02/19 06/15/20 06/15/20 Rx atorvastatin 40 mg PO BEDTIME #30 tab 10/02/19 06/15/20 06/14/20 Rx folic acid 1 mg PO DAILY #30 tab 10/02/19 06/15/20 06/15/20 Rx metoprolol tartrate 100 mg PO BID #120 tab 10/02/19 06/15/20 06/15/20 Rx pantoprazole 40 mg PO BID #60 tab 10/02/19 06/15/20 06/15/20 Rx sennosides-docusate sodium 2 tab PO BID #60 tab 10/02/19 06/15/20 06/15/20 Rx budesonide 2 inh INHALATION Q12H #1 each 06/01/20 06/15/20 06/15/20 Rx acetaminophen [Tylenol] 350 mg PO DAILY 06/15/20 06/15/20 06/15/20 History bisacodyl 10 mg MS DAILY PRN 06/15/20 06/15/20 Unknown History cyanocobalamin (vitamin B-12) 1,000 mcg SUBCUT Q30D 06/15/20 06/15/20 Unknown History eucalyptus oil-menthol [Cough 8 mg MUCOUS MEMBRANE Q2H PRN 06/15/20 06/15/20 Unknown History Drops (with eucalyptus)] furosemide [Lasix] 80 mg PO DAILY 06/15/20 06/15/20 06/15/20 History levofloxacin 500 mg PO DAILY 06/15/20 06/15/20 06/15/20 History magnesium hydroxide [Milk of 400 mg PO DAILY PRN 06/15/20 06/15/20 Unknown History Magnesia] ondansetron HCl [Zofran] 4 mg PO Q6H 06/15/20 06/15/20 06/15/20 History potassium chloride 20 meq PO DAILY 06/15/20 06/15/20 06/15/20 History sodium phosphates [Fleet Enema] 118 ml MS DAILY PRN 06/15/20 06/15/20 Unknown History verapamil 120 mg PO DAILY 06/15/20 06/15/2020 History Allergies Allergy/AdvReac Type Severity Reaction Status Date / Time Penicillins Allergy ALGY-Hives Verified 06/15/20 13:47 PFSH Acute PFSH: Medical History Acute kidney injury Anemia Aortic stenosis Atrial fibrillation and flutter Chronic kidney disease, stage II (mild) CKD (chronic kidney disease) CVA (cerebral vascular accident) DJD (degenerative joint disease) GERD (gastroesophageal reflux disease) Hyperlipidemia Hypertension Hypothyroidism Obesity Pneumonia due to COVID-19 virus Pulmonary embolism Respiratory failure with hypoxia UTI (urinary tract infection) Surgical History History of cholecystectomy History of hernia repair History of tubal ligation Family History Other CAD (coronary artery disease) Social History (Updated 06/15/20 @ 18:39 by Kelsy Ramirez MD) Smoking and tobacco status: never smoked Alcohol intake: never Housing: [facility] Current occupational status: retired Vitals/I&O/Wt Last Vital Signs Pulse 76 06/15/20 18:05 Resp 36 H 06/15/20 18:05 BP 82/62 06/15/20 14:42 Pulse Ox 88 L 06/15/20 18:05 Weight last 48 hrs Weight 113.398 kg Physical Exam Const: COMMON NORMALS: no acute distress GENERAL APPEARANCE: cooperative and comfortable NUTRITIONAL APPEARANCE: obese morbidly obese ORIENTATION/CONSCIOUSNESS: Yes lethargic HENMT: COMMON NORMALS: normocephalic and atraumatic HEAD & SCALP: normocephalic and atraumatic GENERAL EAR: hearing grossly impaired Laterality: diffuse Eye: COMMON NORMALS: Equal, round and reactive pupils present, EOMs intact bilaterally and conjunctivae normal CONJUNCTIVA: Yes conjunctivae normal PUPIL: Yes Equal, round and reactive pupils present Neck/C-Spine: GENERAL: Yes normal visual inspection and Yes trachea midline Resp: COMMON NORMALS: normal respiratory effort, No retractions and No use of accessory muscles EFFORT & INSPECTION: Yes symmetric chest movement, Yes tachypneic and Yes prolonged expiratory phase AUSCULTATION: diminished lung sounds OTHER: -on BiPAP, FiO2-80%, 16/8, saturation in the low 90s Cardio: COMMON NORMALS: regular rate, regular rhythm, S1 normal heart sound present, S2 normal heart sound present and No murmurs present (Cardio) RATE: regular rate RHYTHM: regular rhythm HEART SOUNDS: S1 normal heart sound present and S2 normal heart sound present OTHER: -hypotensive GI: COMMON NORMALS: Normal to inspection, nondistended, normoactive bowel sounds present and Soft to palpation INSPECTION: Yes central obesity PALPATION: Yes Soft to palpation Extremity: NARRATIVE EXTREMITY EXAM: -lymphedema wrap on RLE GENERAL: Yes edema (bilateral LEs) Neuro: SENSORIUM/ORIENTATION: Yes lethargic OTHER: -arousable for very brief periods of time Psych: OTHER: -unable to assess due to mental status Skin: COMMON NORMALS: no jaundice, no petechiae and no mottling NARRATIVE SKIN EXAM: -noted open ulcers on L leg Sepsis: Is patient septic: Yes Focused sepsis exam performed: Yes Date exam was performed: 06/15/20 Time exam was performed: 17:30 Data : 06/15/20 13:55 06/15/20 13:55 A&P Assessment and plan (1) Respiratory failure with hypoxia: -has had some intermittent hypoxia at [facility] since COVID-19 infection, has been on 3 L consistently -now requiring continued BiPAP use, high oxygen requirement, FiO2-80%, low threshold for intubation -currently hemodynamically unstable with noted hypotension; started on pressor support -close monitoring of respiratory status and vital signs -rapid COVID-19 test negative. Recently treated for COVID-19 pneumonia requiring hospitalization -treated with antibiotics, has been on doxycycline and levaquin -noted PCN allergy, will start on empiric antibiotics (Vanc, Levaquin, Aztreonam) -f/u blood cx -CXR with reported improvement in right pleural effusion, continued consolidation/pleural effusion on the left -Telemetry monitoring -Currently afebrile, no leukocytosis, noted significant lactic acidosis with level of 7 -Concern for severe sepsis as evidenced by hypoxia, tachypnea, hypotension, lactic acidosis -check influenza, bacterial antigens, Legionella, MRSA -Boswell catheter ordered for accurate Is & Os Status: Acute Qualifiers: Chronicity: acute on chronic Qualified Code(s): J96.21 - Acute and chronic respiratory failure with hypoxia (2) Sepsis: -as noted above -with septic shock as evidenced by significant lactic acidosis, hypotension requiring pressor support -check UA Status: Acute Qualifiers: Sepsis type: sepsis due to unspecified organism Sepsis acute organ dysfunction status: with acute organ dysfunction Severe sepsis acute organ dysfunction type: acute respiratory failure Acute respiratory failure type: with hypoxia Severe sepsis shock status: with septic shock Qualified Code(s): A41.9 - Sepsis, unspecified organism; R65.21 - Severe sepsis with septic shock; J96.01 - Acute respiratory failure with hypoxia (3) Acute kidney injury: -Noted acute renal impairment with creatinine up to 3.0 in comparison to 1.4 during her last hospitalization -Very gentle IV fluid hydration -Continue to monitor renal function, renally dose meds, avoid nephrotoxins -Hold diuretics for now -check CPK Status: Acute (4) Elevated troponin: -noted elevated troponins with no significant delta x 2 hrs -this is likely type II due to demand ischemia secondary to severe sepsis -Echo (09/2019): EF=55%, no RWMA, biatrial enlargement, mild-moderate , mild TR Status: Acute (5) Anemia: -baseline Hg is around 9 -trend H/H Status: Chronic Qualifiers: Anemia type: unspecified type Qualified Code(s): D64.9 - Anemia, unspecified (6) Aortic stenosis: -noted mild to moderate per last Echo (09/2019) Status: Chronic Qualifiers: Cardiac valve disease etiology: etiology unspecified Qualified Code(s): I35.0 - Nonrheumatic aortic (valve) stenosis (7) Hyperlipidemia: -on statin Status: Chronic Qualifiers: Hyperlipidemia type: unspecified Qualified Code(s): E78.5 - Hyperlipidemia, unspecified (8) Hypertension: -currently hypotensive -hold oral antihypertensives Status: Chronic Qualifiers: Hypertension type: essential hypertension Qualified Code(s): I10 - Essential (primary) hypertension (9) Pulmonary embolism: -prior hx of PE, has been on AC with Eliquis -may need to switch to heparin drip in the interim particularly if unable to take PO Status: Chronic Qualifiers: Pulmonary embolism type: unspecified Chronicity: chronic Acute cor pulmonale presence: unspecified Qualified Code(s): I27.82 - Chronic pulmonary embolism Additional A&P Information -elevated D-dimer; will start on heparin drip until can r/o PE/DVT -Chronic HFpEF; concern for acute exacerbation given BNP elevation (8909), LE edema part of which may be chronic, hold diuretics for now due to hypotension and renal impairment. -Hyperkalemia; correct this, has been on potassium supplementation -Morbid obesity: BMI-38 kg/m2 -hx of hypothyroidism; resume levothyroxine when appropriate -LE edema and ulcers; wound care as needed -Transaminitis; has known large left hepatic lobe lesion; trend LFTs -keep NPO for now due to possible need for intubation -GI ppx with PPI -DVT ppx with heparin if unable to give Eliquis -Dispo: return to [facility] -Code status: FULL code; discussed with daughter in law at bedside and penitentiary, paperwork in chart -Admit to ICU due to severe sepsis, high risk for decompensation with possible need for intubation, need for pressor support Attestations Medical Necessity Statement*: Krystal Andrews's hospital stay will require greater than 2 midnights for management of acute hypoxic respiratory failure, severe sepsis, currently on high oxygen requirement, pressor support. Time Spent in Patient Care: Greater than 35 minutes (>than 50% of time spent in counselling and/or direct pt care on unit). Critical Care Time: The high probability of a clinically significant, sudden or life threatening deterioration of the patient's [respiratory] system(s) required my full and direct attention, intervention and personal management. The critical care time is as shown. This time is in addition to time spent performing any reported procedures but includes the following: [x] Data and vital sign review and interpretation [x] Patient assessment, examination and intervention [x] Documentation [x] Medication orders and management Critical Care Time (min): 15 Coding Level of Care Code Acute Collar Trimmer for g Fwd Diagnoses Respiratory failure with hypoxia J96.21 Chronicity: acute on chronic Sepsis A41.9; R65.21; J96.01 Sepsis type: sepsis due to unspecified organism Sepsis acute organ dysfunction status: with acute organ dysfunction Severe sepsis acute organ dysfunction type: acute respiratory failure Acute respiratory failure type: with hypoxia Severe sepsis shock status: with septic shock Acute kidney injury N17.9 Elevated troponin R79.89 Anemia D64.9 Anemia type: unspecified type Aortic stenosis I35.0 Cardiac valve disease etiology: etiology unspecified Hyperlipidemia E78.5 Hyperlipidemia type: unspecified Hypertension I10 Hypertension type: essential hypertension Pulmonary embolism I27.82 Pulmonary embolism type: unspecified Chronicity: chronic Acute cor pulmonale presence: unspecified Sepsis Event Note Evaluation Current stage of sepsis: severe sepsis Initial hypotension due to sepsis/infection: SBP < 90 mmHg and MAP < 65 mmHg Possible source: pulmonary Focused Exam Vital Signs Pulse Pulse Pulse Resp Resp BP Pulse Ox 06/15/20 18:39 82/44 06/15/20 18:05 76 36 H 88 L 06/15/20 17:12 57 L 91 06/15/20 16:59 49 L 10 L 06/15/20 14:57 54 L 22 H 06/15/20 14:42 63 82/62 85 L 06/15/20 14:06 81 L 06/15/20 13:33 56 L 22 H 92 Pulse Ox 06/15/20 18:39 06/15/20 18:05 06/15/20 17:12 06/15/20 16:59 06/15/20 14:57 91 06/15/20 14:42 06/15/20 14:06 06/15/20 13:33 Respiratory exam: Present prolonged expiratory phase Cardiovascular exam: Present RRR Date exam was performed: 06/15/20 Time exam was performed: 19:12 Problem List (1) Respiratory failure with hypoxia: Status: Acute (2) Sepsis: Status: Acute (3) Acute kidney injury: Status: Acute (4) Elevated troponin: Status: Acute (5) Anemia: Status: Chronic (6) Aortic stenosis: Status: Chronic (7) Hyperlipidemia: Status: Chronic (8) Hypertension: Status: Chronic (9) Pulmonary embolism: Status: Chronic
--- NOTE | 2020-06-15 18:27 | PC.NURSE ---
nursing staff attempted to obtain accurate BP reading and unable. ED provider notified.
[2020-06-15 18:29] LABS: ABG PCO2 31.1 mmHg (35-45); ABG PH Result 7.24 (7.35-7.45); Blood Gas Allen Test Pos; Blood Gas Sample Type Arterial; HCO3 ABG 13.2 mmol/L (22-26)
[2020-06-15 18:30] LABS: Blood Gas Operator Identificat ED; Blood Gas Sample Site Radial, right; Oxygen Device BIPAP
[2020-06-15 18:36] LABS: Lactate (Lactic Acid level) 9.7 mmol/L (0.5-2.2)
--- NOTE | 2020-06-15 19:32 | PC.NURSE ---
2nd RN double 82/42
--- NOTE | 2020-06-15 19:41 | PC.NURSE ---
report to N[facility] Bustos. ICU
--- NOTE | 2020-06-15 19:50 | ECG_ITS ---
[facility] Test Date: 2020-06-15 Pat Name: Krystal Andrews Department: Room: Gender: Female [employer] Director: : 1945 Requested By: Kim Manzanares Order Number: [id number] Astrid MD: RODRIGUEZ VILLALOBOS Measurements Intervals Nichols Rate: 54 P: WV: -1 QRS: 24 QRSD: 142 T: 0 QT: 500 QTc: 478 Interpretive Statements Atrial fibrillation INTRAVENTRICULAR CONDUCTION DELAY [130+ ms QRS DURATION] Compared to ECG 05/24/2020 15:08:31 Intraventricular conduction delay now present Atrial fibrillation no longer present Left-axis deviation no longer present Myocardial infarct finding no longer present Electronically Signed On 06-16-2020 19:34:22 [employer] by RODRIGUEZ VILLALOBOS [id number]
--- NOTE | 2020-06-15 20:00 | PC.NURSE ---
Unable to obtain 2nd line. notified provider.
[2020-06-15 20:18] LABS: Creatine Phosphokinase 126 U/L (26-192)
--- NOTE | 2020-06-15 20:30 | PC.NURSE ---
Lab at bedside unable to obtain lab
--- NOTE | 2020-06-15 20:50 | PC.NURSE ---
Set up for Central line per provider.
[2020-06-15] MEDS: aztreonam 2,000 MG in sodium chloride 0.9% (plus) 100 ML 200 MG IV (21:50)
[2020-06-15] MEDS: atorvastatin 40 mg Tablet PO (22:09)
[2020-06-15] MEDS: sodium chloride 0.45% 1,000 ML 50 ML IV (22:10)
[2020-06-15 22:12] LABS: Magnesium 2.1 mg/dL (1.7-2.3)
[2020-06-15] MEDS: levofloxacin-dextrose 5 % 750 MG/150 ML PREMIX 100 MG IV (22:13)
[2020-06-15 22:14] LABS: Troponin 5 6HR 68.96 ng/L (0-10); Troponin 5 6HR Delta 8.96 ng/L (0-12)
[2020-06-15 22:51] LABS: Potassium 6.6 mmol/L (3.5-5.1)
[2020-06-15] MEDS: heparin 5,000 unit/mL INJ 1 mL IV (22:51)
[2020-06-15] MEDS: heparin drip 25,000 UNIT/500 ML PREMIX 36 UNIT IV (22:54)
[2020-06-15] MEDS: dextrose 50% syringe 50 mL 25 ML IVP (23:03)
[2020-06-15 23:23] LABS: Hematocrit 30.7 % (37.0-47.0); Hemoglobin 8.1 g/dL (11.5-15.3)
[2020-06-15] MEDS: calcium gluconate 0.1 gm/mL 10% SDV 10mL 1 GM IVP (23:34)
[2020-06-15] MEDS: dextrose 50% syringe 50 mL IVP (23:35)
[2020-06-15] MEDS: insulin regular-human 10 UNIT in SYRINGE 1 EACH IVP (23:36)
[2020-06-16] VITALS (92 sets, daily range): BP systolic 71–151; BP diastolic 35–103; PULSE 87–155; RESP 17–35; TEMP 36.5–37.1; O2SAT 94–100
[2020-06-16] MEDS: norepinephrine 8 MG in dextrose 5 % 500 ML 57.2 MG IV (00:25)
[2020-06-16 01:10] LABS: Potassium 5.4 mmol/L (3.5-5.1)
[2020-06-16 01:11] LABS: Glucose Point of Care 150 mg/dL (70-110)
[2020-06-16 01:11] LABS: Glucose Point of Care 178 mg/dL (70-110)
[2020-06-16 01:11] LABS: Glucose Point of Care 51 mg/dL (70-110)
[2020-06-16] MEDS: aztreonam 1,000 MG in sodium chloride 0.9% (plus) 50 ML 100 MG IV ×3 (03:15→20:08)
[2020-06-16 05:11] LABS: Basophils % 0.2 %; Hematocrit 30.8 % (37.0-47.0); Hemoglobin 8.5 g/dL (11.5-15.3); Lymphocytes # 0.7 10^3/uL (0.8-4.8); Lymphocytes % 3.8 %; Mean Corpuscular HGB Conc 27.6 g/dL (30.0-36.0); Mean Corpuscular Hemoglobin 25.1 pg (28.0-34.0); Mean Corpuscular Volume 90.9 fL (81-99); Mean Platelet Volume 11.7 fL (7.4-10.4); Monocytes # 0.9 10^3/uL (0.2-0.9); Monocytes % 5.1 %; Neutrophils # 15.86 10^3/uL (1.8-7.7); Neutrophils % 90.2 %; Nucleated Red Blood Cells % 0.2 %; Platelet Count 167 10^3/cmm (130-400); Red Blood Count 3.39 10^6/uL (4.1-5.3); Red Cell Distribution Width 19.7 % (12.1-15.1); White Blood Count 17.6 10^3/uL (4.0-10.0)
[2020-06-16 05:35] LABS: Partial Thromboplastin Time 110.6 SECONDS (23.9-36.7)
[2020-06-16 05:39] LABS: Albumin Level 2.9 g/dL (3.5-5.2); Alkaline Phosphatase 211 IU/L (35-105); Anion Gap 20.3 (5-19); Blood Urea Nitrogen 56 mg/dL (8-23); Calcium 8.2 mg/dL (8.5-10.5); Carbon Dioxide 20 mmol/L (22-29); Chloride 101 mmol/L (98-107); Globulin 3.1 g/dL (1.3-4.6); Glucose 164 mg/dL (65-115); Magnesium 1.9 mg/dL (1.7-2.3); Osmolality Calculated 301 mOsm/kg (285-295); Potassium 5.3 mmol/L (3.5-5.1); Sodium 136 mmol/L (136-145); Total Bilirubin 1.4 mg/dL (0.15-1.2)
[2020-06-16 05:53] LABS: Alanine Aminotransferase 2328 U/L (0-33)
[2020-06-16 05:57] LABS: Aspartate Amino Transferase 4722 U/L (0-32)
[2020-06-16 06:14] LABS: Influenza A by IFA Negative (Negative); Influenza B by IFA Negative (Negative)
--- NOTE | 2020-06-16 06:46 | XR_ITS ---
WS: [id number] XR chest 1V portable [id number] REASON FOR EXAM: progression of effusions, infection FINDINGS: The chest is unchanged compared to the examination of the prior day. Marked cardiomegaly and opacific ation of the left lower chest with obscuration of the left hemidiaphragm. XR/XR chest 1V portable [id number] IMPRESSION: Unchanged abnormal chest.
--- NOTE | 2020-06-16 06:49 | USCV_ITS ---
Krystal Andrews Age: 74 Gender: F : 1945 Exam Date: 06/16/2020 09:28 Ordering Phys: Kelsy Ramirez MD Technologist: Mart Lopez Exam Location: [facility] [place] Indication: BILAT EDEMA HISTORY: Lower extremity swelling. PROCEDURES: The venous duplex Doppler examination of both lower extremities was performed in the standard fashion. The following venous structures were evaluated: common femoral vein, profunda vein, proximal portion of the greater saphenous vein, superficial femoral vein, and the popliteal vein. In addition, the posterior tibial and peroneal trunk were evaluated. Bilaterally, the common femoral, superficial femoral, profunda femoral, popliteal, posterior tibial, greater saphenous veins, and the peroneal trunk were identified and interrogated in the standard fashion. These veins were found to be easily compressible with spontaneous blood flow. No evidence of insufficiency or thrombus noted. FINDINGS: Normal 2-D Doppler and augmentation and compressibility throughout the lower extremity venous structures. Additional imaging through the proximal calf veins also reveals no thrombus. Limited evaluation of the greater saphenous vein is patent with no thrombus.. Echolucent areas in the subcutaneous tissue CONCLUSIONS 1. No evidence of DVT in the above-mentioned identifiable veins. 2. Features of fluid retention/edema in the lower extremities Dr Cisco Armendariz MD [facility] (Electronically Signed) Final Date: 16 June 2020 23:41 S
--- NOTE | 2020-06-16 06:51 | P.PN_ITS ---
Subjective Subjective: Interval history: Overnight, remained on BiPAP support though able to decrease FiO2 to 40%, had total urine output of 200 mL, borderline blood pressures and remains on Levophed, vasopressin added. Noted significant leukocytosis with white count of 17.6 this morning, hemoglobin of 8.5, improved hyperkalemia, worsening renal function, significant worsening of liver function. Was hypoglycemic overnight and received an amp of D50. She is much more alert, on 4-5 L NC, verbally responsive this morning. Case discussed with Dr. Benton who did bedside US showing evidence of pericardial effusion. Will get formal Echo to further evaluate for this. INR up to 5.08, hold further anticoagulation. Medications: Reviewed: Yes Medication Review Details: Active Medications Generic Name Dose Route Start Last Admin Trade Name Freq PRN Reason Stop Dose Admin Acetaminophen 650 mg 06/15/20 20:52 Tylenol PO Q6H PRN MILD PAIN Acetaminophen 650 mg 06/15/20 20:52 Tylenol NE Q6H PRN FEVER Albuterol Sulfate 2 puff 06/15/20 21:50 Ventolin INHALATION Q4H.RESPIRATORY P RN SHORTNESS OF SHERLEY TH Aspirin 81 mg 06/16/20 09:00 Aspirin Chewable PO DAILY KAROLINA Atorvastatin Calci um 40 mg 06/15/20 21:00 06/15/20 22:09 Lipitor PO 40 mg BEDTIME KAROLINA Administration Bisacodyl 10 mg 06/15/20 20:52 Bisac-Evac NE DAILY PRN Constipation Dextrose 25 ml 06/15/20 22:42 06/15/20 23:03 D50w IVP 25 ml ONCE PRN Administration hypoglycemia prot ocol Protocol Dextrose 50 ml 06/15/20 22:42 D50w IVP PRN PRN hypoglycemia prot ocol Protocol Folic Acid 1 mg 06/16/20 09:00 Folic Acid PO DAILY KAROLINA Glucagon 1 mg 06/15/20 22:42 Glucagen IM ONCE PRN Adult Acute Hypog lycemia Prot. Protocol Heparin Sodium (Be ef Lung) 0 unit 06/15/20 19:17 06/15/20 22:51 Heparin IV 6,500 unit PRN PRN Administration Heparin weight-ba se protocol Protocol Vancomycin HCl 1,5 00 mg/ 250 mls @ 166.667 mls/hr 06/15/20 20:00 06/16/20 00:41 Sodium Chloride IV Infused Q48H [facility] Infusion Protocol Levofloxacin/Dextr ose 750 mg in 150 mls @ 100 mls/hr 06/15/20 19:30 06/16/20 00:41 Levaquin-D5w IV Infused Q48H [facility] Infusion Protocol Heparin Sodium/Sod ium Chloride 25,000 unit in 50 0 mls @ 0 mls/hr 06/15/20 19:30 06/16/20 05:42 Heparin Drip IV 12.35 unit/kg/hr .Q0M KAROLINA 28 mls/hr Titration Protocol Per Protocol Aztreonam 1,000 mg / Sodium 50 mls @ 100 mls/ hr 06/16/20 03:30 06/16/20 05:20 Chloride IV Infused Q8H [facility] Infusion Sodium Chloride 1,000 mls @ 50 ml s/hr 06/15/20 20:52 06/15/20 22:10 Sodium Chloride 0.45% IV 50 mls/hr .Q20H KAROLINA Administration Dextrose 500 mls @ 100 mls /hr 06/15/20 22:42 D5w IV ONCE PRN Adult Acute Hypog lycemia Prot Protocol Norepinephrine Bit artrate 8 mg 508 mls @ 0 mls/h r 06/15/20 23:45 06/16/20 04:45 / Dextrose IV 12 mcg/min .Q0M KRAOLINA 45.7 mls/hr Titration Protocol Per Protocol Vasopressin 100 un it/ Sodium 100 mls @ 0 mls/h r 06/15/20 23:45 Chloride IV .Q0M K[facility]OLINA Protocol Per Protocol Levothyroxine Sodi um 225 mcg 06/16/20 09:00 Synthroid PO DAILY [facility] Lorazepam 1 mg 06/15/20 20:52 Ativan IVP Q6H PRN ANXIETY Ondansetron HCl 4 mg 06/15/20 20:52 Zofran IVP Q6H PRN NAUSEA AND VOMITI NG Pantoprazole Sodiu m 40 mg 06/16/20 09:00 Protonix IVP DAILY [facility] Penicillins Allergy (Verified 06/15/20 13:47) ALGY-Hives Vitals/I&O/Wt Last Vital Signs Temp 98.6 F 06/16/20 04:00 Pulse 89 06/16/20 06:15 Resp 23 H 06/16/20 06:00 BP 126/90 06/16/20 06:00 Pulse Ox 100 06/16/20 06:15 06/15/20 06/15/20 06/16/20 14:59 22:59 06:59 Intake Total 8.106 / 8.106 860.431 / 868.537 Output Total 200 / 200 Balance 8.106 / 8.106 660.431 / 668.537 Weight last 48 hrs Weight 130.635 kg Weight 113.398 kg Physical Exam Const: COMMON NORMALS: no acute distress and alert GENERAL APPEARANCE: cooperative and comfortable NUTRITIONAL APPEARANCE: obese morbidly obese HENMT: COMMON NORMALS: normocephalic and atraumatic HEAD & SCALP: n ormocephalic and atraumatic GENERAL EAR: hearing grossly impaired Laterality: diffuse Eye: COMMON NORMALS: Equal, round and reactive pupils present, EOMs intact bilaterally and conjunctivae normal CONJUNCTIVA: Yes conjunctivae normal PUPIL: Yes Equal, round and reactive pupils present Neck/C-Spine: GENERAL: Yes normal visual inspection and Yes trachea midline Resp: COMMON NORMALS: normal respiratory effort, No retractions and No use of accessory muscles EFFORT & INSPECTION: Yes symmetric chest movement, Yes tachypneic and Yes prolonged expiratory phase AUSCULTATION: diminished lung sounds OTHER: -on 5 L NC Cardio: COMMON NORMALS: regular rate, regular rhythm, S1 normal heart sound present, S2 normal heart sound present and No murmurs present (Cardio) RATE: regular rate RHYTHM: regular rhythm HEART SOUNDS: S1 normal heart sound present and S2 normal heart sound present OTHER: -normotensive (BP-120/89) GI: COMMON NORMALS: Normal to inspection, nondistended, normoactive bowel sounds present and Soft to palpation INSPECTION: Yes central obesity P ALPATION: Yes Soft to palpation : BLADDER/KIDNEY EXAM: Yes catheter in place Catheter type (Female): urethral OTHER: -oozing noted from R femoral central line Extremity: COMMON NORMALS: normal to inspection and full ROM; negative for no pedal edema NARRATIVE EXTREMITY EXAM: -bilateral LE pitting edema up to thigh level GENERAL: Yes edema (bilateral LEs) Neuro: COMMON NORMALS: moves all extremities, no focal motor deficits and no sensory deficits noted SENSORIUM/ORIENTATION: Yes alert Psych: COMMON NORMALS: mental status grossly normal, Normal thought process present, cooperative, normal affect and speech normal SPEECH: Yes normal speech THOUGHT PROCESS: Normal thought process present Skin: COMMON NORMALS: no jaundice, no petechiae and no mottling NARRATIVE SKIN EXAM: -noted open ulcers on L leg Urinary Catheter Management^: Boswell: Cath Placed During This Visit: yes Reason for Continuing Indwelling Catheter: Accurate Measurement of Urinary Output in Critically Ill Patients Urinary Catheter Date of Insertion: 06/15/20 Urinary Catheter Time of Insertion: 19:50 Data : 06/16/20 04:48 06/16/20 04:48 Micro: Microbiology 06/15/20 21:10 Blood Culture - Preliminary Blood SPECIMEN COLLECTED 06/15/20 13:55 Blood Culture - Preliminary Blood SPECIMEN COLLECTED A&P Assessment and plan (1) Septic shock: -Likely secondary to acute hypoxic respiratory failure with evidence of mu ltiorgan failure including acute renal injury, acute liver failure. Clinical suspicion for cardiogenic shock given concern for pericardial effusion, noted clinical evidence of acute CHF exacerbation -Noted worsening leukocytosis, continued hypotension with increased pressor requirement, significant lactic acidosis, continued BiPAP support due to persistent hypoxia -Repeat labs this afternoon -Is already on broad-spectrum IV antibiotics -CT A/P due to multi-organ involvement to r/o additional sources of infection with no noted acute abnormalities -blood cx pending -UA pending -noted evidence of pericardial effusion per bedside US and on CT A/P; formally evaluate with Echo -supratherapeutic INR, noted oozing from R femoral central line; hold futher anticoagulation for now Status: Acute (2) Respiratory failure with hypoxia: -has had some intermittent hypoxia at long term since COVID-19 infection, has been on 3 L consistently -now requiring continued BiPAP use, high oxygen requirement, FiO2-80%, low threshold for intubation -currently hemodynamically unstable with noted hypotension; started on pressor support -close monitoring of respiratory status and vital signs -rapid COVID-19 test negative. Recently treated for COVID-19 pneumonia requiring hospitalization -previously treated with antibiotics, has been on doxycycline and levaquin -noted PCN allergy, on empiric antibiotics (Vanc, Levaquin, Aztreonam) -f/u blood cx -CXR with reported improvement in right pleural effusion, continued consol idation/pleural effusion on the left -Telemetry monitoring -Currently afebrile, no leukocytosis, noted significant lactic acidosis with level of 7 -Concern for severe sepsis as evidenced by hypoxia, tachypnea, hypotension, lactic acidosis -influenza negative; bacterial antigens, Legionella, MRSA pending -Boswell catheter ordered for accurate Is & Os Status: Acute Qualifiers: Chronicity: acute on chronic Qualified Code(s): J96.21 - Acute and chronic respiratory failure with hypoxia (3) Shock liver: -noted significant increase in LFTs indicating acute liver failure -likely related to cardiogenic shock as noted above -has known large left hepatic lobe lesion; stable per repeat imaging -continue to trend LFTs Status: Acute (4) Sepsis: -as noted above Status: Acute Qualifiers: Acute respiratory failure type: with hypoxia Sepsis acute organ dysfunction status: with acute organ dysfunction Sepsis type: sepsis due to unspecified organism Severe sepsis acute organ dysfunction type: acute r espiratory failure Severe sepsis shock status: with septic shock Qualified Code(s): A41.9 - Sepsis, unspecified organism; R65.21 - Severe sepsis with septic shock; J96.01 - Acute respiratory failure with hypoxia (5) Acute kidney injury: -continued acute renal impairment -Very gentle IV fluid hydration -Continue to monitor renal function, renally dose meds, avoid nephrotoxins -diuretics on hold due to renal impairment and hypotension -CPK wnl -may need to consult nephrology if continued worsening renal function and oliguria Status: Acute (6) Acute exacerbation of CHF (congestive heart failure): -Chronic HFpEF; concern for acute exacerbation given BNP elevation (8909), LE edema part of which may be chronic -continue to hold diuretics for now due to hypotension and renal impairment. -repeat Echo today -may need formal cardiology evaluation Status: Acute Qualifiers: Heart failure type: diastolic Qualified Code(s): I50.33 - Acute on chronic diastolic (congestive) heart failure (7) Elevated troponin: -noted elevated troponins with no significant delta x 2 hrs -this is likely type II due to demand ischemia secondary to severe sepsis -Echo (09/2019): EF=55%, no RWMA, biatrial enlargement, mild-moderate , mild TR. Repeat Echo today Status: Acute (8) Anemia: -baseline Hg is around 9 -continue to trend H/H Status: Chronic Qualifiers: Anemia type: unspecified type Qualified Code(s): D64.9 - Anemia, unspecified (9) Aortic stenosis: -noted mild to moderate per last Echo (09/2019) Status: Chronic Qualifiers: Cardiac valve disease etiology: etiology unspecified Qualified Code(s): I35.0 - Nonrheumatic aortic (valve) stenosis (10) Hyperlipidemia: -on statin Status: Chronic Qualifiers: Hyperlipidemia type: unspecified Qualified Code(s): E78.5 - Hyperlipidemia, unspecified (11) Hypertension: -currently hypotensive and requiring pressor support; BP is improving -continue to hold oral antihypertensives Status: Chronic Qualifiers: Hypertension type: essential hypertension Qualified Code(s): I10 - Essential (primary) hypertension (12) Pulmonary embolism: -prior hx of PE, has been on AC with Eliquis -was on heparin drip overnight; now on hold due to noted supratherapeutic INR Status: Chronic Qualifiers: Acute cor pulmonale presence: unspecified Chronicity: chronic Pulmonary embolism type: unspecified Qualified Code(s): I27.82 - Chronic pulmonary embolism Additional A&P Information -elevated D-dimer; could be secondary to shock, heparin drip on hold due to noted supratherapeutic INR. Venous duplex ordered, unable to get CTA due to renal impairment. -Hyperkalemia; had been on potassium supplementation. Some improvement with meds. Continue to monitor -Morbid obesity: BMI-44 kg/m2 -hx of hypothyroidism; on levothyroxine -LE edema and ulcers; wound care as needed -keep NPO for now due to possible need for intubation -GI ppx with PPI -DVT ppx with SCDs -Dispo: return to [facility] -Code status: FULL code; discussed with daughter in law at bedside and long term, paperwork in chart -continue ICU due to septic shock, high risk for decompensation with possible need for intubation, need for pressor support -guarded prognosis in light of evidence of multiorgan failure Attestations Medical Necessity Statement*: Patient requires hospitalization for continued management of septic shock with multiorgan failure, with continued requirement for pressor support, broad spectrum IV antibiotics, continued close monitoring of hemodynamic and respiratory status. Time Spent in Patient Care: Greater than 35 minutes (>than 50% of time spen t in counselling and/or direct pt care on unit) . Critical Care Time: The high probability of a clinically significant, sudden or life threatening deterioration of the patient's [respiratory, cardiovascular] system(s) required my full and direct attention, intervention and personal management. The critical care time is as shown. This time is in addition to time spent performing any reported procedures but includes the following: [x] Data and vital sign review and interpretation [x] Patient assessment, examination and intervention [x] Documentation [x] Medication orders and management Critical Care Time (min): 20 Coding Level of Care Code Acute Medical Collections Specialist [facility] Fwd Exam Comprehensive Diagnoses Septic shock A41.9; R65.21 Respiratory failure with hypoxia J96.21 Chronicity: acute on chronic Shock liver K72.00 Sepsis A41.9; R65.21; J96.01 Acute respiratory failure type: with hypoxia Sepsis acute organ dysfunction status: with acute organ dysfunction Sepsis type: sepsis due to unspecified organism Severe sepsis acute organ dysfunction type: acute respiratory failure Severe sepsis shock status: with septic shock Acute kidney injury N17.9 Acute exacerbation of CHF (congestive heart failure) I50.33 Heart failure type: diastolic Elevated troponin R79.89 Anemia D64.9 Anemia type: unspecified type Aortic stenosis I35.0 Cardiac valve disease etiology: etiology unspecified Hyperlipidemia E78.5 Hyperlipidemia type: unspecified Hypertension I10 Hypertension type: essential hypertension Pulmonary embolism I27.82 Acute cor pulmonale presence: unspecified Chronicity: chronic Pulmonary embolism type: unspecified
--- NOTE | 2020-06-16 06:56 | CT_ITS ---
WS: [id number] CT ABDOMEN PELVIS TECHNIQUE: Noncontrast CT of the abdomen and pelvis with coronal and sagittal reformatted images. CLINICAL INFORMATION: septic shock, shock liver, multiorgan failure COMPARISON: CT September 26, 2019 DLP: 1656.[address] scans at [facility] use at least one of these dose optimization techniques: automat ed exposure control; mA and/or kV adjustment per patient size (includes targeted exams where dose is matched to clinical indication); or iterative reconstruction. FINDINGS: Partially visualized small moderate pericardial effusion. Small left pleural effusion. Compressive at electasis left lower lobe. Small right pleural effusion. Large left hepatic lobe lesion is stable sin ce the prior examinations. Associated peripheral calcification with internal heterogeneity is similar in appearance. Differential considerations are unchanged and include echinococcal cyst, biliary cyst adenoma, and atypical hepatic adenoma Small amount of free fluid in the pelvis. Uterine calcification. Boswell catheter. Ventral abdominal wa ll hernia previously repaired with ectatic anterior abdominal wall. No high-grade obstruction. Cholec ystectomy. Tiny hepatic cysts. Noncontrast spleen is normal in appearance. Vascular calcification. At rophic kidneys bilaterally. Normal adrenal glands. Stable right renal cyst measuring 2.[address]/CT abdomen pelvis wo con [id number] IMPRESSION: 1. Stable large left hepatic lobe cystic lesion unchanged. Today this measures approximately 13.4 x 13.8 x 14.1 cm. Differential considerations are unchanged and include echinococcal cyst, biliary cystadenoma, and atypical hepatic adeno ma. 2. Prior cholecystectomy. 3. Small to moderate pericardial effusion partially visualized. 4. Small left greater than right pleural effusions. Compressive atelectasis le ft lower lobe. 5. Bilateral renal cortical atrophy with atrophic kidneys. 6. Previously. Ventral abdominal wall hernia with ectatic anterior abdominal w all. No evidence of high-grade obstruction. 7. Small amount of free fluid in the pelvis. 8. Boswell catheter in place.
--- NOTE | 2020-06-16 07:09 | PC.NURSE ---
recd. pcxr in progress. bipap in place.
[2020-06-16 07:38] LABS: INR 5.08 (0.8-1.2)
[2020-06-16 08:00] LABS: ABG PH Result 7.36 (7.35-7.45); Arterial Blood Gas Hematocrit 27.2 % (37-47); Base Excess ABG -4.2 mmol/L (-2.0-2.0); Blood Gas Allen Test Pos; Blood Gas Operator Identificat MONRO; Blood Gas Sample Site Radial, left; Blood Gas Sample Type Arterial; HCO3 ABG 20.8 mmol/L (22-26); PO2 ABG 71.8 mmHg (80.0-100.0)
[2020-06-16 08:01] LABS: Oxygen Device NC
[2020-06-16 08:17] LABS: Lactate (Lactic Acid level) 2.7 mmol/L (0.5-2.2)
--- NOTE | 2020-06-16 08:29 | USCV_ITS ---
Krystal Andrews Age: 74 Gender: F : 1945 Exam Date: 06/16/2020 09:13 Ordering Phys: Kelsy Ramirez MD Technologist: Mart Lopez [place] [facility] [place]: PERICARD EFF BP: 108 / 70 HR: 122 Rhythm: Sinus Technical Quality: Very poor MEASUREMENTS (Male / Female) Normal Values 2D ECHO LV Diastolic Diameter PLAX 3.1 cm 4.2 - 5.9 / 3.9 - 5.3 cm LV Systolic Diameter PLAX 2.2 cm IVS Diastolic Thickness 0.9 cm 0.6 - 1.0 / 0.6 - 0.9 cm IVS Systolic Thickness 1.4 cm LVPW Diastolic Thickness 1.1 cm 0.6 - 1.0 / 0.6 - 0.9 cm LVPW Systolic Thickness 1.4 cm LVOT Diameter 2.1 cm LV Ejection Fraction 2D Teich 59.4 % LV Ejection Fraction MOD 2C 63.3 % LV Ejection Fraction 2C AL 63.0 % LA Diameter 4.5 cm LA Width 4.6 cm LA Height 6.0 cm RA Width 4.2 cm RA Height 6.7 cm M-MODE LV Diastolic Diameter MM 4.1 cm 4.2 - 5.9 / 3.9 - 5.3 cm LV Systolic Diameter MM 2.2 cm LV Ejection Fraction MM Teich 77.1 % IVS Diastolic Thickness MM 1.0 cm 0.6 - 1.0 / 0.6 - 0.9 cm IVS Systolic Thickness MM 1.8 cm LVPW Diastolic Thickness MM 0.9 cm 0.6 - 1.0 / 0.6 - 0.9 cm LVPW Systolic Thickness MM 1.7 cm RV Diastolic Diameter MM 2.3 cm Aortic Annulus Diameter 4.3 cm LA Ao Ratio MM 1.1 MV E Point Septal Separation 1.1 cm DOPPLER AV Peak Velocity 202.7 cm/s LVOT Peak Velocity 89.0 cm/s AV Area Cont Eq vti 1.6 cm squared AV Area Cont Eq pk 1.5 cm squared MV Area PHT 5.0 cm squared Mitral E to A Ratio 3.2 MV E' Velocity 59.5 cm/s Mitral E to MV E' Ratio 14.3 Mitral E to LV E' Lateral Ratio 14.5 Mitral E to LV E' Septal Ratio 14.3 TR Peak Velocity 181.3 cm/s TR Peak Gradient 13.2 mmHg TV Peak E Velocity 87.0 cm/s Right Atrial Pressure 3.0 mmHg Pulmonary Artery Systolic Pressu 16.2 mmHg PV Peak Velocity 97.0 cm/s FINDINGS Left Ventricle Normal left ventricular cavity size. Normal left ventricular systolic function. Left ventricular ejection fraction is estimated at 55 %. Although no diagnostic regional wall motion abnormality could be identified. this possibility cannot be completely excluded based on the study. Grade 2 diastolic dysfunction with elevated filling pressure. Right Ventricle Normal right ventricular size and systolic function. Right ventricular systolic pressure 16.2 mmHg. Right Atrium Right atrium not well visualized. Left Atrium Mildly increased left atrial size. Mitral Valve Moderate mitral annular calcification. Moderately thickened mitral valve. No mitral valve stenosis. Aortic Valve Aortic valve not well visualized. Aortic valve sclerosis without significant stenosis. Trace aortic valve regurgitation. Tricuspid Valve Thickened tricuspid valve. Trace tricuspid valve regurgitation. Pulmonic Valve Pulmonic valve not well visualized. Pericardium [id number] pericardial effusion loculated more along left ventricular free wall. No evidence of tamponade physiology based on this study. Aorta Aortic root not well visualized. Inferior vena cava not well visualized. CONCLUSIONS 1. This is a technically very difficult study. 2. Normal left ventricular cavity size and normal left ventricular systolic function. Left ventricular ejection fraction is estimated at 55 %. Although no diagnostic regional wall motion abnormality could be identified. this possibility cannot be completely excluded based on the study. Grade 2 diastolic dysfunction with elevated filling pressure. 3. Normal right ventricular size and systolic function. 4. Normal pulmonary artery pressure. 5. Ebrbo-ug-raivhylt pericardial effusion loculated more along left ventricular free wall. No evidence of tamponade physiology based on this study. 6. Compared to previous echocardiogram dated 09/21/19, there is pericardial effusion now. Tanisha Ramsey MD (Electronically Signed) Final Date: 16 June 2020 13:40 S
[2020-06-16 08:38] LABS: Hepatitis A Antibody IgM Non-Reactive (Nonreactive); Hepatitis B Core IgM Non-Reactive (Nonreactive); Hepatitis B Surface Antigen Non-Reactive (Nonreactive); Hepatitis C Virus Antibody Non-Reactive (Nonreactive)
--- NOTE | 2020-06-16 08:47 | PC.NURSE ---
to ct and back. gómez. fair. back pain with resting flat.
--- NOTE | 2020-06-16 08:48 | PC.NURSE ---
drs. crump and александр in.
[2020-06-16] MEDS: levothyroxine 150 mcg Tablet 225 MCG PO (09:08)
[2020-06-16] MEDS: folic acid 1 mg Tablet PO (09:09)
[2020-06-16] MEDS: aspirin 81 mg Chew Tablet PO (09:09)
[2020-06-16] MEDS: pantoprazole 40 mg SDV IVP (09:10)
[2020-06-16 09:27] LABS: Add Urine Microscopic? YES; Bilirubin Urine 1+ (Negative); Blood Urine 3+ (Negative); Glucose Urine UA Norm (Normal); Ketones Urine Negative (Negative); Leukocyte Esterase Urine 1+ (Negative); Nitrate Urine Negative (Negative); Protein Urine 1+ (Negative); Specific Gravity, Urine 1.015 (1.005-1.030); Urine Appearance Cloudy (CLEAR); Urine Color Yellow (Yellow); Urobilinogen Urine Norm (Negative)
[2020-06-16 09:28] LABS: Add Urine Culture? Yes; Bacteria Urine 1+ /hpf; Mucus Urine TRACE /hpf; RBC Urine >100 /hpf (0-2); Squamous Epithelial Cell Urine 0-4 /hpf (0-5); WBC Urine 0-4 /hpf (0-5)
[2020-06-16 14:06] LABS: Creatine Phosphokinase 189 U/L (26-192)
[2020-06-16] MEDS: metoprolol tartrate 1 mg/1 mL SDV 5 mL 5 MG IV (16:32)
[2020-06-16 17:10] LABS: Blood Gas CCRB Time 1820
[2020-06-16 17:36] LABS: Glucose Point of Care 90 mg/dL (70-110)
[2020-06-16 17:37] LABS: Glucose Point of Care 80 mg/dL (70-110)
[2020-06-16 17:37] LABS: Glucose Point of Care 118 mg/dL (70-110)
[2020-06-16 17:42] LABS: Basophils % 0.3 %; Eosinophils % 0.4 %; Hematocrit 29.7 % (37.0-47.0); Hemoglobin 8.2 g/dL (11.5-15.3); Lymphocytes # 0.8 10^3/uL (0.8-4.8); Mean Corpuscular HGB Conc 27.6 g/dL (30.0-36.0); Mean Corpuscular Hemoglobin 24.6 pg (28.0-34.0); Mean Corpuscular Volume 88.9 fL (81-99); Mean Platelet Volume 11.4 fL (7.4-10.4); Monocytes # 0.6 10^3/uL (0.2-0.9); Monocytes % 5.1 %; Neutrophils # 9.64 10^3/uL (1.8-7.7); Neutrophils % 86.8 %; Nucleated Red Blood Cells % 0.4 %; Platelet Count 129 10^3/cmm (130-400); Red Blood Count 3.34 10^6/uL (4.1-5.3); Red Cell Distribution Width 19.8 % (12.1-15.1); White Blood Count 11.1 10^3/uL (4.0-10.0)
--- NOTE | 2020-06-16 17:49 | PC.NURSE ---
family concerned pt. may not understand what being a full code means. discussed it with her, as if we needed paperwork filled out. didnt seem to upset her. she said she wanted cpr and a breathing machine if it came to that, a well as meds. difficult to determine if she really understands what this means, but did hear me. pt is h.o.h doris. in left ear, according to family
[2020-06-16 17:55] LABS: Albumin Level 2.8 g/dL (3.5-5.2); Alkaline Phosphatase 215 IU/L (35-105); Anion Gap 18.2 (5-19); Blood Urea Nitrogen 64 mg/dL (8-23); Calcium 8.4 mg/dL (8.5-10.5); Carbon Dioxide 23 mmol/L (22-29); Chloride 102 mmol/L (98-107); Globulin 3.2 g/dL (1.3-4.6); Glucose 83 mg/dL (65-115); Osmolality Calculated 303 mOsm/kg (285-295); Potassium 5.2 mmol/L (3.5-5.1); Sodium 138 mmol/L (136-145); Total Bilirubin 0.9 mg/dL (0.15-1.2)
[2020-06-16 18:06] LABS: Alanine Aminotransferase 2060 U/L (0-33)
--- NOTE | 2020-06-16 18:12 | PC.NURSE ---
on hi-tyler heart rate remains 123-154. coughing, occ. productive.
[2020-06-16 18:20] LABS: Aspartate Amino Transferase 3277 U/L (0-32)
[2020-06-16 18:51] LABS: Partial Thromboplastin Time 46.1 SECONDS (23.9-36.7)
[2020-06-16] MEDS: norepinephrine 8 MG in dextrose 5 % 500 ML 30.5 MG IV (19:00)
--- NOTE | 2020-06-16 19:29 | PC.NURSE ---
N.O. HR 140's with Afib, Off going nurse received V.O. for Digoxin 1x dose
[2020-06-16] MEDS: atorvastatin 40 mg Tablet PO (20:08)
[2020-06-16] MEDS: digoxin 250 mcg/ml INJ 2 mL 125 MCG IVP (20:16)
--- NOTE | 2020-06-16 20:48 | PC.NURSE ---
Administered 1X dose digoxin, HR still 140's, Dr. Ramirez at bedside, placed order for Cardizem drip
[2020-06-16 23:14] LABS: Glucose Point of Care 85 mg/dL (70-110)
[2020-06-17] VITALS (35 sets, daily range): BP systolic 51–137; BP diastolic 33–68; PULSE 91–135; RESP 20–36; TEMP 36.4; O2SAT 91–99
--- NOTE | 2020-06-17 00:38 | PC.NURSE ---
Dr. Espinoza notified that cardizem is maxed at 15 mg/hr, gave order to call if sustained HR 130 or >
[2020-06-17] MEDS: aztreonam 1,000 MG in sodium chloride 0.9% (plus) 50 ML 100 MG IV ×3 (03:47→19:41)
[2020-06-17 04:57] LABS: Basophils % 0.3 %; Eosinophils % 0.4 %; Hematocrit 27.3 % (37.0-47.0); Hemoglobin 7.6 g/dL (11.5-15.3); Lymphocytes # 0.5 10^3/uL (0.8-4.8); Lymphocytes % 7.1 %; Mean Corpuscular HGB Conc 27.8 g/dL (30.0-36.0); Mean Corpuscular Hemoglobin 24.8 pg (28.0-34.0); Mean Corpuscular Volume 89.2 fL (81-99); Mean Platelet Volume 11.8 fL (7.4-10.4); Monocytes # 0.4 10^3/uL (0.2-0.9); Monocytes % 4.8 %; Neutrophils % 87.1 %; Nucleated Red Blood Cells % 0.3 %; Platelet Count 89 10^3/cmm (130-400); Red Blood Count 3.06 10^6/uL (4.1-5.3); Red Cell Distribution Width 19.9 % (12.1-15.1); White Blood Count 7.3 10^3/uL (4.0-10.0)
[2020-06-17 05:18] LABS: Albumin Level 2.7 g/dL (3.5-5.2); Alkaline Phosphatase 223 IU/L (35-105); Anion Gap 15.7 (5-19); Blood Urea Nitrogen 63 mg/dL (8-23); Calcium 8.4 mg/dL (8.5-10.5); Carbon Dioxide 24 mmol/L (22-29); Chloride 104 mmol/L (98-107); Globulin 2.9 g/dL (1.3-4.6); Glucose 87 mg/dL (65-115); Osmolality Calculated 305 mOsm/kg (285-295); Potassium 4.7 mmol/L (3.5-5.1); Sodium 139 mmol/L (136-145); Total Bilirubin 0.8 mg/dL (0.15-1.2); Total Protein 5.6 g/dL (6.6-8.7)
[2020-06-17 05:32] LABS: Alanine Aminotransferase 1796 U/L (0-33)
[2020-06-17 05:36] LABS: Aspartate Amino Transferase 2191 U/L (0-32)
--- NOTE | 2020-06-17 06:19 | NUR.SHIFT ---
Cardizem drip controlled HR, decreasing from 150's to low 100's currently, afib persists, Levophed Titrated throughout shift from 8 to 2 mcg/min BP stable at this time, remains AO x4, regular unlabored RR 35L Heated High flow NC Fio2 40%
[2020-06-17 06:32] LABS: D Dimer 10.18 ug/mIFEU (0-0.59)
--- NOTE | 2020-06-17 07:52 | P.PN_ITS ---
Subjective Subjective: Interval history: Patient was on Cardizem drip throughout the night secondary to A. fib with RVR, heart rate better controlled, able to titrate Levophed requirement from 8->2 mcg/min, afebrile, currently on heated high flow at 35 L with an FiO2 40%. Noted drop in hemoglobin from 8.2-7.6, thrombocytopenia which is likely secondary to heparin drip, heparin drip on hold secondary to high APTT. Noted drop in INR, elevated D-dimer, continued renal impairment. Had 1850 mL urine output overnight. Has remained on cardizem drip throughout the day and heated high flow. Noted difficulty swallowing so requested formal ST evaluation. Medications: Reviewed: Yes Medication Review Details: Active Medications Generic Name Dose Route Start Last Admin Trade Name Freq PRN Reason Stop Dose Admin Acetaminophen 650 mg 06/15/20 20:52 Tylenol PO Q6H PRN MILD PAIN Acetaminophen 650 mg 06/15/20 20:52 Tylenol MT Q6H PRN FEVER Albuterol Sulfate 2 puff 06/15/20 21:50 Ventolin INHALATION Q4H.RESPIRATORY P RN SHORTNESS OF SHERLEY TH Aspirin 81 mg 06/16/20 09:00 06/16/20 09:09 Aspirin Chewable PO 81 mg DAILY KAROLINA Administration Atorvastatin Calci um 40 mg 06/15/20 21:00 06/16/20 20:08 Lipitor PO 40 mg BEDTIME KAROLINA Administration Bisacodyl 10 mg 06/15/20 20:52 Bisac-Evac MT DAILY PRN Constipation Dextrose 25 ml 06/15/20 22:42 06/15/20 23:03 D50w IVP 25 ml ONCE PRN Administration hypoglycemia prot ocol Protocol Dextrose 50 ml 06/15/20 22:42 D50w IVP PRN PRN hypoglycemia prot ocol Protocol Folic Acid 1 mg 06/16/20 09:00 06/16/20 09:09 Folic Acid PO 1 mg DAILY KAROLINA Administration Glucagon 1 mg 06/15/20 22:42 Glucagen IM ONCE PRN Adult Acute Hypog lycemia Prot. Protocol Heparin Sodium (Be ef Lung) 0 unit 06/15/20 19:17 06/15/20 22:51 Heparin IV 6,500 unit PRN PRN Administration Heparin weight-ba se protocol Protocol Vancomycin HCl 1,5 00 mg/ 250 mls @ 166.667 mls/hr 06/15/20 20:00 06/16/20 00:41 Sodium Chloride IV Infused Q48H KAROLINA Infusion Protocol Levofloxacin/Dextr ose 750 mg in 150 mls @ 100 mls/hr 06/15/20 19:30 06/16/20 00:41 Levaquin-D5w IV Infused Q48H KAROLINA Infusion Protocol Heparin Sodium/Sod ium Chloride 25,000 unit in 50 0 mls @ 0 mls/hr 06/15/20 19:30 06/16/20 08:47 Heparin Drip IV 0 unit/kg/hr .Q0M KAROLINA 0 mls/hr Titration Protocol Per Protocol Aztreonam 1,000 mg / Sodium 50 mls @ 100 mls/ hr 06/16/20 03:30 06/17/20 07:09 Chloride IV Infused Q8H KAROLINA Infusion Sodium Chloride 1,000 mls @ 50 ml s/hr 06/15/20 20:52 06/16/20 19:04 Sodium Chloride 0.45% IV Infused .Q20H KAROLINA Infusion Dextrose 500 mls @ 100 mls /hr 06/15/20 22:42 D5w IV ONCE PRN Adult Acute Hypog lycemia Prot Protocol Norepinephrine Bit artrate 8 mg 508 mls @ 0 mls/h r 06/15/20 23:45 06/17/20 05:47 / Dextrose IV 2 mcg/min .Q0M KAROLINA 7.6 mls/hr Titration Protocol Per Protocol Vasopressin 100 un it/ Sodium 100 mls @ 0 mls/h r 06/15/20 23:45 Chloride IV .Q0M KAROLINA Protocol Per Protocol Diltiazem HCl 125 mg/ Sodium 125 mls @ 0 mls/h r 06/16/20 20:45 06/17/20 05:47 Chloride IV 10 mg/hr .Q0M KAROLINA 10 mls/hr Titration Protocol Per Protocol Levothyroxine Sodi um 225 mcg 06/16/20 09:00 06/16/20 09:08 Synthroid PO 225 mcg DAILY KAROLINA Administration Lorazepam 1 mg 06/15/20 20:52 Ativan IVP Q6H PRN ANXIETY Metoprolol Tartrat e 2.5 mg 06/16/20 16:53 Metoprolol Tartr ate IV Q4H PRN HEART RATE-HIGH Ondansetron HCl 4 mg 06/15/20 20:52 Zofran IVP Q6H PRN NAUSEA AND VOMITI NG Pantoprazole Sodiu m 40 mg 06/16/20 09:00 06/16/20 09:10 Protonix IVP 40 mg DAILY KAROLINA Administration Penicillins Allergy (Verified 06/15/20 13:47) ALGY-Hives Vitals/I&O/Wt Last Vital Signs Temp 98.6 F 06/16/20 21:00 Pulse 116 H 06/17/20 06:00 Resp 23 H 06/17/20 06:00 BP 89/53 06/17/20 06:00 Pulse Ox 96 06/17/20 06:00 06/16/20 06/17/20 06/17/20 22:59 06:59 14:59 Intake Total 1702.852 / 1839.185 242.952 / 2082.137 50 / 50 Output Total 950 / 970 1850 / 2820 Balance 752.852 / 869.185 -1607.048 / -737.863 50 / 50 Weight last 48 hrs Weight 130.635 kg Weight 113.398 kg Physical Exam Const: COMMON NORMALS: no acute distress and alert GENERAL APPEARANCE: cooperative and comfortable NUTRITIONAL APPEARANCE: obese morbidly obese HENMT: COMMON NORMALS: normocephalic and atraumatic HEAD & SCALP: normocephalic and atraumatic GENERAL EAR: hearing grossly impaired Laterality: diffuse Eye: COMMON NORMALS: Equal, round and reactive pupils present, EOMs intact bilaterally and conjunctivae normal CONJUNCTIVA: Yes conjunctivae normal PUPIL: Yes Equal, round and reactive pupils present Neck/C-Spine: GENERAL: Yes normal visual inspection and Yes trachea midline Resp: COMMON NORMALS: normal respiratory effort, No retractions and No use of accessory muscles EFFORT & INSPECTION: Yes symmetric chest movement, Yes tachypneic and Yes prolonged expiratory phase AUSCULTATION: diminished lung sounds OTHER: -on heated high flow, FiO2-40%, 35 L Cardio: COMMON NORMALS: S1 normal heart sound present, S2 normal heart sound present and No murmurs present (Cardio) RATE: tachycardic RHYTHM: abnormal rhythm irregularly irregular HEART SOUNDS: S1 normal heart sound present and S2 normal heart sound present OTHER: -normotensive though still on pressor support GI: COMMON NORMALS: Normal to inspection, nondistended, normoactive bowel sounds present and Soft to palpation INSPECTION: Yes central obesity PALPATION: Yes Soft to palpation : BLADDER/KIDNEY EXAM: Yes catheter in place Catheter type (Female): ure thral OTHER: -R femoral central line; no longer oozing Extremity: COMMON NORMALS: normal to inspection and full ROM; negative for no pedal edema NARRATIVE EXTREMITY EXAM: -bilateral LE pitting edema up to thigh level GENERAL: Yes edema (bilateral LEs) Neuro: COMMON NORMALS: moves all extremities, no focal motor deficits and no sensory deficits noted SENSORIUM/ORIENTATION: Yes alert Psych: COMMON NORMALS: mental status grossly normal, Normal thought process present, cooperative, normal affect and speech normal SPEECH: Yes normal speech THOUGHT PROCESS: Normal thought process present Skin: COMMON NORMALS: no jaundice, no petechiae and no mottling NARRATIVE SKIN EXAM: -noted open ulcers on L leg, noted purulent drainage; overall uncha nged. Urinary Catheter Management^: Boswell: Cath Placed During This Visit: yes Reason for Continuing Indwelling Catheter: Accurate Measurement of Urinary Output in Critically Ill Patients Urinary Catheter Date of Insertion: 06/15/20 Urinary Catheter Time of Insertion: 19:50 Data : 06/17/20 11:56 06/17/20 11:56 Micro: Microbiology 06/15/20 21:10 Blood Culture - Preliminary Blood NEGATIVE TO DATE 06/15/20 13:55 Blood Culture - Preliminary Blood NEGATIVE TO DATE 06/15/20 04:57 MRSA Culture - Final Nose 06/16/20 07:50 Bacterial Antigens - Final Urine,Voided 06/15/20 00:35 Legionella Urinary Antigen - Final Urine Catheterized A&P Assessment and plan (1) Septic shock: -Likely secondary to acute hypoxic respiratory failure with evidence of multiorgan failure including acute renal injury, acute liver failure. Clinical suspicion for cardiogenic shock given concern for pericardial effusion, noted clinical evidence of acute CHF exacerbation -Noted resolved leukocytosis, continued pressor requirement, significant lactic acidosis trending down, continued oxygen requirement due to persistent hypoxia -daily labs -Is already on broad-spectrum IV antibiotics -CT A/P due to multi-organ involvement to r/o additional sources of infection with no noted acute abnormalities -blood cx prelim negative -UA indicative of infection; urine cx prelim negative -noted evidence of small to moderate pericardial effusion per bedside US, Echo and on CT A/P -supratherapeutic INR, noted oozing from R femoral central line, thrombocytopenia, worsening anemia; hold futher anticoagulation for now Status: Acute (2) Respiratory failure with hypoxia: -has had some intermittent hypoxia at halfway since COVID-19 infection, was on 3 L consistently -alternating between HHFNC and BiPAP use, decreasing oxygen requirement, low threshold for intubation -hemodynamically unstable; on pressor support, wean as tolerated -close monitoring of respiratory status and vital signs -rapid COVID-19 test negative. Recently treated for COVID-19 pneumonia requiring hospitalization -previously treated with antibiotics, has been on doxycycline and levaquin -noted PCN allergy, on empiric antibiotics (Vanc, Levaquin, Aztreonam) -blood cx: prelim negative -CXR with reported improvement in right pleural effusion, continued consolidation/pleural effusion on the left -Telemetry monitoring -afebrile, no leukocytosis, noted significant lactic acidosis with level of 7, trending down -Concern for severe sepsis as evidenced by hypoxia, tachypnea, hypotension, lactic acidosis -influenza, bacterial antigens, Legionella, MRSA negative -Boswell catheter placed for accurate Is & Os Status: Acute Qualifiers: Chronicity: acute on chronic Qualified Code(s): J96.21 - Acute and chronic respiratory failure with hypoxia (3) Shock liver: -noted significant increase in LFTs indicating acute liver failure -likely related to cardiogenic shock as noted above -has known large left hepatic lobe lesion; stable per repeat imaging -continue to trend LFTs; mild improvement today Status: Acute (4) Sepsis: -as noted above Status: Acute Qualifiers: Acute respiratory failure type: with hypoxia Sepsis acute organ dysfunction status: with acute organ dysfunction Sepsis type: sepsis due to unspecified organism Severe sepsis acute organ dysfunction type: acute respiratory failure Severe sepsis shock status: with septic shock Qualified Code(s): A41.9 - Sepsis, unspecified organism; R65.21 - Severe sepsis with septic shock; J96.01 - Acute respiratory failure with hypoxia (5) Acute kidney injury: -continued acute renal impairment -baseline Cr appears to be around 1.2-1.6 -Very gentle IV fluid hydration -Continue to monitor renal function, renally dose meds, avoid nephrotoxins -diuretics on hold due to renal impairment and hypotension -CPK wnl -nephrology consult requested due to continued renal impairment -good urine output overnight; has Boswell catheter in place -UA with some proteinuria, blood Status: Acute (6) Acute exacerbation of CHF (congestive heart failure): -Chronic HFpEF; concern for acute exacerbation given BNP elevation (8909), LE edema part of which may be chronic -continue to hold diuretics for now due to hypotension and renal impairment. -repeat Echo: EF=55%, G2DD, small to moderate pericardial effusion but no tamponade physiology. Findings discussed with Dr. Ramsey -may need formal cardiology evaluation particularly if continued hemodynamic instability Status: Acute Qualifiers: Heart failure type: diastolic Qualified Code(s): I50.33 - Acute on chromosomal disorders counselor shelly diastolic (congestive) heart failure (7) Elevated troponin: -noted elevated troponins with no significant delta x 2 hrs -this is likely type II due to demand ischemia secondary to severe sepsis -Echo (09/2019): EF=55%, no RWMA, biatrial enlargement, mild-moderate , mild TR. Repeat Echo noted above Status: Acute (8) Anemia: -baseline Hg is around 9 -continue to trend H/H; gradual drop Status: Chronic Qualifiers: Anemia type: unspecified type Qualified Code(s): D64.9 - Anemia, unspecified (9) Aortic stenosis: -noted mild to moderate per last Echo (09/2019) Status: Chronic Qualifiers: Cardiac valve disease etiology: etiology unspecified Qualified Code(s): I35.0 - Nonrheumatic aortic (valve) stenosis (10) Hyperlipidemia: -on statin Status: Chronic Qualifiers: Hyperlipidemia type: unspecified Qualified Code(s): E78.5 - Hyperlipidemia, unspecified (11) Hypertension: -currently requiring pressor support; BP is improving -continue to hold oral antihypertensives Status: Chronic Qualifiers: Hypertension type: essential hypertension Qualified Code(s): I10 - Essential (primary) hypertension (12) Pulmonary embolism: -prior hx of PE, has been on AC with Eliquis -was on heparin drip; now on hold due to noted supratherapeutic INR, thrombocytopenia, worsening anemia, oozing from central line Status: Chronic Qualifiers: Acute cor pulmonale presence: unspecified Chronicity: chronic Pulmonary embolism type: unspecified Qualified Code(s): I27.82 - Chronic pulm onary embolism (13) Atrial fibrillation with RVR: -failed metoprolol, digoxin, on Cardizem drip currently with little change -no amiodarone right now due to deranged hepatic function -telemetry monitoring -will discuss with cardiology tomorrow AM -continues to require pressor support Status: Acute Additional A&P Information -elevated D-dimer; could be secondary to shock, heparin drip on hold due to noted supratherapeutic INR. Venous duplex negative for DVT, unable to get CTA due to renal impairment. -Hyperkalemia, resolved; had been on potassium supplementation. Continue to monitor -Morbid obesity: BMI-44 kg/m2 -hx of hypothyroidism; on levothyroxine -LE edema and ulcers; wound care as needed -CLD for now due to possible need for intubation -GI ppx with PPI -DVT ppx with SCDs -Dispo: return to [facility] -Code status: FULL code; discussed with daughter in law at bedside and halfway, paperwork in chart -continue ICU due to septic shock, high risk for decompensation with possible need for intubation, need for pressor support -guarded prognosis in light of evidence of multiorgan failure Attestations Medical Necessity Statement*: Patient requires hospitalization for continued management of shock with multiorgan failure, on pressor support, continued oxygen requirement, renal impairment, atrial fibrillation with RVR. Time Spent in Patient Care: Greater than 35 minutes (>than 50% of time spent in counselling and/or direct pt care on unit) . Coding Level of Care Code Acute Meter Readers Supervisor for g Fwd Exam Comprehensive Diagnoses Septic shock A41.9; R65.21 Respiratory failure with hypoxia J96.21 Chronicity: acute on chronic Shock liver K72.00 Sepsis A41.9; R65.21; J96.01 Acute respiratory failure type: with hypoxia Sepsis acute organ dysfunction status: with acute organ dysfunction Sepsis type: sepsis due to unspecified organism Severe sepsis acute organ dysfunction type: acute respiratory failure Severe sepsis shock status: with septic shock Acute kidney injury N17.9 Acute exacerbation of CHF (congestive heart failure) I50.33 Heart failure type: diastolic Elevated troponin R79.89 Anemia D64.9 Anemia type: unspecified type Aortic stenosis I35.0 Cardiac valve disease etiology: etiology unspecified Hyperlipidemia E78.5 Hyperlipidemia type: unspecified Hypertension I10 Hypertension type: essential hypertension Pulmonary embolism I27.82 Acute cor pulmonale presence: unspecified Chronicity: chronic Pulmonary embolism type: unspecified Atrial fibrillation with RVR I48.91
[2020-06-17 08:22] LABS: Glucose Point of Care 85 mg/dL (70-110)
--- NOTE | 2020-06-17 09:17 | P.CONIM_ITS ---
Providers/Reason For Consult Consulting Physican/Specialty*: Lina Jones DO, telenephrology Reason for Consult*: Acute kidney injury Attending Physician: Kelsy Ramirez MD Primary Care Provider: Kristian Rincon DO History of Present Illness History of Present Illness Krystal Andrews is a 74 year old female discharged last month after treatment for COVID. Admitted with hypoxemia, septic shock, PIETER. Currently hypotensive, requiring increaseing pressors Review of Systems General: Reports: ROS unobtainable due to medical condition Meds/Allergies Home Medications and Allergies Home Medications Medication Instructions Recorded Confirmed Last Taken Type aspirin 81 mg PO DAILY 09/21/19 06/15/20 06/15/20 History levothyroxine 225 mcg PO DAILY 09/21/19 06/15/20 06/15/20 History Eliquis 2.5 mg PO BID #30 tab 10/02/19 06/15/20 06/15/20 Rx atorvastatin 40 mg PO BEDTIME #30 tab 10/02/19 06/15/20 06/14/20 Rx folic acid 1 mg PO DAILY #30 tab 10/02/19 06/15/20 06/15/20 Rx metoprolol tartrate 100 mg PO BID #120 tab 10/02/19 06/15/20 06/15/20 Rx pantoprazole 40 mg PO BID #60 tab 10/02/19 06/15/20 06/15/20 Rx sennosides-docusate sodium 2 tab PO BID #60 tab 10/02/19 06/15/20 06/15/20 Rx budesonide 2 inh INHALATION Q12H #1 each 06/01/20 06/15/20 06/15/20 Rx acetaminophen [Tylenol] 350 mg PO DAILY 06/15/20 06/15/20 06/15/20 History bisacodyl 10 mg NM DAILY PRN 06/15/20 06/15/20 Unknown History cyanocobalamin (vitamin B-12) 1,000 mcg SUBCUT Q30D 06/15/20 06/15/20 Unknown History eucalyptus oil-menthol [Cough 8 mg MUCOUS MEMBRANE Q2H PRN 06/15/20 06/15/20 Unknown History Drops (with eucalyptus)] furosemide [Lasix] 80 mg PO DAILY 06/15/20 06/15/20 06/15/20 History levofloxacin 500 mg PO DAILY 06/15/20 06/15/20 06/15/20 History magnesium hydroxide [Milk of 400 mg PO DAILY PRN 06/15/20 06/15/20 Unknown History Magnesia] ondansetron HCl [Zofran] 4 mg PO Q6H 06/15/20 06/15/20 06/15/20 History potassium chloride 20 meq PO DAILY 06/15/20 06/15/20 06/15/20 History sodium phosphates [Fleet Enema] 118 ml NM DAILY PRN 06/15/20 06/15/20 Unknown History verapamil 120 mg PO DAILY 06/15/20 06/15/20 06/15/20 History Allergies Allergy/AdvReac Type Severity Reaction Status Date / Time Penicillins Allergy ALGY-Hives Verified 06/15/20 13:47 Current Medications Current Medications Generic Name Dose Route Start Last Admin Trade Name Freq PRN Reason Stop Dose Admin Aspirin 81 mg 06/16/20 09:00 06/16/20 09:09 Aspirin Chewable PO 81 mg DAILY KAROLINA Administration Atorvastatin Calcium 40 mg 06/15/20 21:00 06/16/20 20:08 Lipitor PO 40 mg BEDTIME KAROLINA Administration Dextrose 25 ml 06/15/20 22:42 06/15/20 23:03 D50w IVP 25 ml ONCE PRN Administration hypoglycemia protocol Protocol Folic Acid 1 mg 06/16/20 09:00 06/16/20 09:09 Folic Acid PO 1 mg DAILY KAROLINA Administration Heparin Sodium (Beef Lung) 0 unit 06/15/20 19:17 06/15/20 22:51 Heparin IV 6,500 unit PRN PRN Administration Heparin weight-base protocol Protocol Vancomycin HCl 1,500 mg/ 250 mls @ 166.667 mls/hr 06/15/20 20:00 06/16/20 00:41 Sodium Chloride IV Infused Q48H KAROLINA Infusion Protocol Levofloxacin/Dextrose 750 mg in 150 mls @ 100 mls/hr 06/15/20 19:30 06/16/20 00:41 Levaquin-D5w IV Infused Q48H KAROLINA Infusion Protocol Heparin Sodium/Sodium Chloride 25,000 unit in 500 mls @ 0 mls/hr 06/15/20 19:30 06/16/20 08:47 Heparin Drip IV 0 unit/kg/hr .Q0M KAROLINA 0 mls/hr Titration Protocol Per Protocol Aztreonam 1,000 mg/ Sodium 50 mls @ 100 mls/hr 06/16/20 03:30 06/17/20 07:09 Chloride IV Infused Q8H KAROLINA Infusion Sodium Chloride 1,000 mls @ 50 mls/hr 06/15/20 20:52 06/16/20 19:04 Sodium Chloride 0.45% IV Infused .Q20H KAROLINA Infusion Norepinephrine Bitartrate 8 mg 508 mls @ 0 mls/hr 06/15/20 23:45 06/17/20 05:47 / Dextrose IV 2 mcg/min .Q0M KAROLINA 7.6 mls/hr Titration Protocol Per Protocol Diltiazem HCl 125 mg/ Sodium 125 mls @ 0 mls/hr 06/16/20 20:45 06/17/20 05:47 Chloride IV 10 mg/hr .Q0M KAROLINA 10 mls/hr Titration Protocol Per Protocol Levothyroxine Sodium 225 mcg 06/16/20 09:00 06/16/20 09:08 Synthroid PO 225 mcg DAILY KAROLINA Administration PFSH Acute PFSH: Medical History Acute kidney injury Anemia Aortic stenosis Atrial fibrillation and flutter Chronic kidney disease, stage II (mild) CKD (chronic kidney disease) CVA (cerebral vascular accident) DJD (degenerative joint disease) GERD (gastroesophageal reflux disease) Hyperlipidemia Hypertension Hypothyroidism Obesity Pneumonia due to COVID-19 virus Pulmonary embolism Respiratory failure with hypoxia UTI (urinary tract infection) Surgical History History of cholecystectomy History of hernia repair History of tubal ligation Family History Other CAD (coronary artery disease) Social History Smoking and tobacco status: never smoked Alcohol intake: never Housing: [facility] Current occupational status: retired Vitals/I&O/Wt Last Vital Signs Temp 98.6 F 06/16/20 21:00 Pulse 93 06/17/20 08:27 Resp 22 H 06/17/20 08:27 BP 89/53 06/17/20 06:00 Pulse Ox 97 06/17/20 08:27 06/16/20 06/17/20 06/17/20 22:59 06:59 14:59 Intake Total 1702.852 / 1839.185 242.952 / 2082.137 50 / 50 Output Total 950 / 970 1850 / 2820 Balance 752.852 / 869.185 -1607.048 / -737.863 50 / 50 Weight last 48 hrs Weight 130.635 kg Weight 113.398 kg Physical Exam Const: COMMON NORMALS: no acute distress GENERAL APPEARANCE: cooperative NUTRITIONAL APPEARANCE: obese Urinary Catheter Management^: Boswell: Cath Placed During This Visit: yes Reason for Continuing Indwelling Catheter: Accurate Measurement of Urinary Output in Critically Ill Patients Urinary Catheter Date of Insertion: 06/15/20 Urinary Catheter Time of Insertion: 19:50 Data Labs: Other Labs: AST 2191, ALT 1796 INR 3.1 urinalysis not infected, +RBC Micro: Micro: Microbiology 06/16/20 08:35 Urine Culture - Pr eliminary Urine,Clean Catch 06/15/20 21:10 Blood Culture - Pr eliminary Blood NEGATIVE TO RAVI E 06/15/20 13:55 Blood Culture - Pr eliminary Blood NEGATIVE TO RAVI E 06/15/20 04:57 MRSA Culture - Fin al Nose 06/16/20 07:50 Bacterial Antigens - Final Urine,Voided 06/15/20 00:35 Legionella Urinary Antigen - Final Urine Catheterize d Other Data: Other data: CXR: opacification LLL, cardiomegaly CT: atrophic kidneys ECHO: EF 55%, small - moderate pericardial efusion, Gr 2 diastolic dysfunction Renal US 05/2020: Right kidney: 9.8 cm x 4.5 cm x 4.5 cm. Mild atrophy of the kidney. Cyst in the mid cortex measures 2.6 x 2.3 x 2.4 cm. There is mild diffuse thinning of the cortex. No hydronephrosis. Left kidney: 9.7 cm x 4.6 cm x 5.0 cm.Diffuse cortical thinning and mild atrophy. No mass. A&P Additional A&P Information Impression: 1. Acute kidney injury due to sepsis. Currently nonoliguric. Serum Cr 1.4 mg/dL at last hospital discharge 2. Sepsis 3. Lactic acidosis, serum bicarbonate now normal 4. Hyperkalemia, resolved 5. Anemia, coagulopathy 6. Transaminitis Recommend: Continue supportive care. Follow vanco levels. Agree with holding diuretics at this time. Consider transfusion pRBC. Consult Attestations Medical Necessity Statement: critically ill in ICU Time Spent in Patient Care: 16 - 35 minutes Coding Level of Care Code Acute Wholesale Loan Processor for Belinda Ty
[2020-06-17] MEDS: pantoprazole 40 mg SDV IVP ×2 (11:23→19:42)
[2020-06-17] MEDS: levothyroxine 150 mcg Tablet 225 MCG PO (11:24)
[2020-06-17] MEDS: folic acid 1 mg Tablet PO (11:24)
[2020-06-17 11:41] LABS: Glucose Point of Care 106 mg/dL (70-110)
[2020-06-17 12:46] LABS: Basophils % 0.4 %; Eosinophils % 0.5 %; Hematocrit 28.6 % (37.0-47.0); Hemoglobin 7.7 g/dL (11.5-15.3); Lymphocytes # 0.5 10^3/uL (0.8-4.8); Lymphocytes % 6.4 %; Mean Corpuscular HGB Conc 26.9 g/dL (30.0-36.0); Mean Corpuscular Hemoglobin 24.8 pg (28.0-34.0); Mean Corpuscular Volume 92.3 fL (81-99); Mean Platelet Volume 11.2 fL (7.4-10.4); Monocytes # 0.3 10^3/uL (0.2-0.9); Monocytes % 4.4 %; Neutrophils # 6.83 10^3/uL (1.8-7.7); Neutrophils % 87.9 %; Nucleated Red Blood Cells % 0.5 %; Platelet Count 96 10^3/cmm (130-400); Red Cell Distribution Width 20.3 % (12.1-15.1); White Blood Count 7.8 10^3/uL (4.0-10.0)
[2020-06-17 13:30] LABS: Anion Gap 17.1 (5-19); Blood Urea Nitrogen 62 mg/dL (8-23); Calcium 8.2 mg/dL (8.5-10.5); Carbon Dioxide 23 mmol/L (22-29); Chloride 102 mmol/L (98-107); Glucose 116 mg/dL (65-115); Osmolality Calculated 305 mOsm/kg (285-295); Potassium 4.1 mmol/L (3.5-5.1); Sodium 138 mmol/L (136-145)
[2020-06-17 17:29] LABS: Glucose Point of Care 102 mg/dL (70-110)
[2020-06-17] MEDS: sodium chloride 0.45% 1,000 ML 50 ML IV (17:40)
[2020-06-17] MEDS: levofloxacin-dextrose 5 % 750 MG/150 ML PREMIX 100 MG IV (19:44)
[2020-06-17] MEDS: LORazepam 2 mg/mL INJ 1 mL 1 MG IVP (21:21)
[2020-06-17] MEDS: atorvastatin 40 mg Tablet PO (21:21)
[2020-06-17 21:37] LABS: Glucose Point of Care 102 mg/dL (70-110)
[2020-06-18] VITALS (29 sets, daily range): BP systolic 83–119; BP diastolic 47–83; PULSE 92–149; RESP 18–40; TEMP 36.6–37.3; O2SAT 90–100
[2020-06-18] MEDS: aztreonam 1,000 MG in sodium chloride 0.9% (plus) 50 ML 100 MG IV ×2 (02:30→19:10)
[2020-06-18 04:35] LABS: Basophils % 0.4 %; Eosinophils # 0.1 10^3/uL (0.0-0.8); Hematocrit 25.4 % (37.0-47.0); Lymphocytes # 0.4 10^3/uL (0.8-4.8); Lymphocytes % 7.2 %; Mean Corpuscular HGB Conc 27.6 g/dL (30.0-36.0); Mean Corpuscular Volume 90.7 fL (81-99); Mean Platelet Volume 10.7 fL (7.4-10.4); Monocytes # 0.3 10^3/uL (0.2-0.9); Monocytes % 5.2 %; Neutrophils # 4.43 10^3/uL (1.8-7.7); Neutrophils % 85.8 %; Nucleated Red Blood Cells % 0.6 %; Platelet Count 71 10^3/cmm (130-400); White Blood Count 5.2 10^3/uL (4.0-10.0)
[2020-06-18 04:56] LABS: Albumin Level 2.4 g/dL (3.5-5.2); Alkaline Phosphatase 202 IU/L (35-105); Anion Gap 11.9 (5-19); Blood Urea Nitrogen 51 mg/dL (8-23); Calcium 8.1 mg/dL (8.5-10.5); Carbon Dioxide 25 mmol/L (22-29); Chloride 104 mmol/L (98-107); Globulin 2.6 g/dL (1.3-4.6); Glucose 90 mg/dL (65-115); Magnesium 1.7 mg/dL (1.7-2.3); Osmolality Calculated 297 mOsm/kg (285-295); Phosphorus 3.9 mg/dL (2.5-4.5); Potassium 3.9 mmol/L (3.5-5.1); Sodium 137 mmol/L (136-145); Total Bilirubin 0.8 mg/dL (0.15-1.2)
[2020-06-18 05:09] LABS: Alanine Aminotransferase 1286 U/L (0-33)
[2020-06-18 05:15] LABS: Aspartate Amino Transferase 726 U/L (0-32)
--- NOTE | 2020-06-18 06:26 | PC.NURSE ---
Shift Summary: Patient has fluctuated on her BP and HR throughout shift. A-fib majority of night. Cardizem, and Levo drips titration based on need. (See mar flowsheet). Some anxiety noted overnight. Patient was unable to rest comfortably. Noticeably large increase in shakiness, and rapid breathing. PRN Ativan given one time, and patient then able to rest more comfortably. 850 u/o Levo 2mcg/min 1/2 NS 50 Cardizem 7.5mL/hr RT transitioned patient onto 6L [place]. SPO2 maintaining at 100%
--- NOTE | 2020-06-18 07:10 | P.PN_ITS ---
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 she is weak, sob, edematous. Medications: Reviewed: Yes Medication Review Details: Current Medications Acetaminophen (Tylenol) 650 mg PO Q6H PRN PRN Reason: MILD PAIN Acetaminophen (Tylenol) 650 mg MD Q6H PRN PRN Reason: FEVER Albuterol Sulfate (Ventolin) 2 puff INHALATION Q4H.RESPIRATORY PRN PRN Reason: SHORTNESS OF BREATH Aspirin (Aspirin Chewable) 81 mg PO DAILY [facility] Last Admin: 06/16/20 09:09 Dose: 81 mg Documented by: Atorvastatin Calcium (Lipitor) 40 mg PO BEDTIME [facility] Last Admin: 06/17/20 21:21 Dose: 40 mg Documented by: Bisacodyl (Bisac-Evac) 10 mg MD DAILY PRN PRN Reason: Constipation Dextrose (D50w) 25 ml IVP ONCE PRN; Protocol PRN Reason: hypoglycemia protocol Last Admin: 06/15/20 23:03 Dose: 25 ml Documented by: Dextrose (D50w) 50 ml IVP PRN PRN; Protocol PRN Reason: hypoglycemia protocol Folic Acid (Folic Acid) 1 mg PO DAILY [facility] Last Admin: 06/17/20 11:24 Dose: 1 mg Documented by: Glucagon (Glucagen) 1 mg IM ONCE PRN; Protocol PRN Reason: Adult Acute Hypoglycemia Prot. Heparin Sodium (Beef Lung) (Heparin) 0 unit IV PRN PRN; Protocol PRN Reason: Heparin weight-base protocol Last Admin: 06/15/20 22:51 Dose: 6,500 unit Documented by: Vancomycin HCl 1,500 mg/ (Sodium Chloride) 250 mls @ 166.667 mls/hr IV Q48H [facility]; Protocol Last Infusion: 06/17/20 22:06 Dose: Infused Documented by: Levofloxacin/Dextrose (Levaquin-D5w) 750 mg in 150 mls @ 100 mls/hr IV Q48H [facility]; Protocol Last Infusion: 06/17/20 21:14 Dose: Infused Documented by: Heparin Sodium/Sodium Chloride (Heparin Drip) 25,000 unit in 500 mls @ 0 mls/hr IV .Q0M [facility]; Protocol Last Titration: 06/17/20 09:00 Dose: 0 unit/kg/hr, 0 mls/hr Documented by: Aztreonam 1,000 mg/ Sodium (Chloride) 50 mls @ 100 mls/hr IV Q8H [facility] Last Infusion: 06/18/20 03:07 Dose: Infused Documented by: Sodium Chloride (Sodium Chloride 0.45%) 1,000 mls @ 50 mls/hr IV .Q20H [facility] Last Admin: 06/17/20 17:40 Dose: 50 mls/hr Documented by: Dextrose (D5w) 500 mls @ 100 mls/hr IV ONCE PRN; Protocol PRN Reason: Adult Acute Hypoglycemia Prot Vasopressin 100 unit/ Sodium (Chloride) 100 mls @ 0 mls/hr IV .Q0M [facility]; Protocol Diltiazem HCl 125 mg/ Sodium (Chloride) 125 mls @ 0 mls/hr IV .Q0M [facility]; Protocol Last Titration: 06/18/20 04:53 Dose: 7.5 mg/hr, 7.5 mls/hr Documented by: Norepinephrine Bitartrate 4 mg (/ Dextrose) 254 mls @ 0 mls/hr IV .Q0M [facility]; Protocol Last Titration: 06/18/20 01:40 Dose: 2 mcg/min, 7.6 mls/hr Documented by: Levothyroxine Sodium (Synthroid) 225 mcg PO DAILY [facility] Last Admin: 06/17/20 11:24 Dose: 225 mcg Documented by: Lorazepam (Ativan) 1 mg IVP Q6H PRN PRN Reason: ANXIETY Last Admin: 06/17/20 21:21 Dose: 1 mg Documented by: Metoprolol Tartrate (Metoprolol Tartrate) 2.5 mg IV Q4H PRN PRN Reason: HEART RATE-HIGH Ondansetron HCl (Zofran) 4 mg IVP Q6H PRN PRN Reason: NAUSEA AND VOMITING Pantoprazole Sodium (Protonix) 40 mg IVP Q12H [facility] Last Admin: 06/17/20 19:42 Dose: 40 mg Documented by: Vitals/I&O/Wt Last Vital Signs Temp 98.5 F 06/18/20 06:00 Pulse 111 H 06/18/20 06:00 Resp 28 H 06/18/20 06:00 BP 83/56 06/18/20 06:00 Pulse Ox 100 06/18/20 06:00 06/17/20 06/18/20 06/18/20 22:59 06:59 14:59 Intake Total 834.896 / 1591.510 163.655 / 1755.165 Output Total 1550 / 2300 850 / 3150 Balance -715.104 / -708.490 -686.345 / -1394.835 Physical Exam Narrative: EXAM NARRATIVE: torriereloy geiger on nc 02- 6l in bed heent- nc/at, eomi, anicteric neck no jvp lung dull bases and crackles heart- irreg irreg abd soft, nt, nd, +BS ext b/l edema neuro- a,a, o x2 + morrison Urinary Catheter Management^: Morrison: Cath Placed During This Visit: yes Reason for Continuing Indwelling Catheter: Accurate Measurement of Urinary Output in Critically Ill Patients Urinary Catheter Date of Insertion: 06/15/20 Urinary Catheter Time of Insertion: 19:50 Data : 06/18/20 04:00 06/18/20 04:00 Micro: Microbiology 06/16/20 08:35 Urine Culture - Preliminary Urine,Clean Catch A&P Additional A&P Information 89 yr old female shock -likely combined cardiogenic and septic -no clear infectious source. On vanco, aztreonam, and levaquin. Leukocytosis has improved. 2. Acute kidney injury due to hypotension, dec CO. lft's and CR are improving -pt needs BP support and HR control to improve CO and renal perfusion. -monitor vanco levels 3. CKD stage 3- Serum Cr 1.4 mg/dL at last hospital discharge 4. anemia, thrombocytopenia- check iron studies, ldh, retic, haptoglobin, spep -consider prbc tx pt had a high INR- is improving 5. Lactic acidosis resolved, serum bicarbonate now normal 6. pericardial effusion and a fib w/ RVR per cardiology 7. 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
[2020-06-18 07:42] LABS: Lactate Dehydrogenase 384 U/L (135-214)
[2020-06-18 08:29] LABS: Glucose Point of Care 110 mg/dL (70-110)
--- NOTE | 2020-06-18 08:43 | PM.PN ---
Subjective Subjective: Interval history: Remains hemodynamically unstable with continued need for pressor support, despite continued Cardizem drip has remained in A. fib with RVR. No drop in hemoglobin to 7.0 today, will transfuse blood products. Some improvement in renal function as well as liver function. Had 850 mL urine output overnight for total negative fluid balance of 1.5 L. On heated high flow at 35 L and 40%. Developed epistaxis for some time this afternoon, now stopped. Has just completed her first unit of blood and will need some diuresis in between. Case discussed with Dr. Ramsey, recommended CT chest, dose of digoxin. Medications: Reviewed: Yes Medication Review Details: Current Medications Generic Name Dose Route Start Last Admin Trade Name Freq PRN Reason Stop Dose Admin Aspirin 81 mg 06/16/20 09:00 06/16/20 09:09 Aspirin Chewable PO 81 mg DAILY [facility] Administration Atorvastatin Calci um 40 mg 06/15/20 21:00 06/17/20 21:21 Lipitor PO 40 mg BEDTIME [facility] Administration Dextrose 25 ml 06/15/20 22:42 06/15/20 23:03 D50w IVP 25 ml ONCE PRN Administration hypoglycemia prot ocol Protocol Folic Acid 1 mg 06/16/20 09:00 06/17/20 11:24 Folic Acid PO 1 mg DAILY [facility] Administration Heparin Sodium (Be ef Lung) 0 unit 06/15/20 19:17 06/15/20 22:51 Heparin IV 6,500 unit PRN PRN Administration Heparin weight-ba se protocol Protocol Vancomycin HCl 1,5 00 mg/ 250 mls @ 166.667 mls/hr 06/15/20 20:00 06/17/20 22:06 Sodium Chloride IV Infused Q48H [facility] Infusion Protocol Levofloxacin/Dextr ose 750 mg in 150 mls @ 100 mls/hr 06/15/20 19:30 06/17/20 21:14 Levaquin-D5w IV Infused Q48H [facility] Infusion Protocol Heparin Sodium/Sod ium Chloride 25,000 unit in 50 0 mls @ 0 mls/hr 06/15/20 19:30 06/17/20 09:00 Heparin Drip IV 0 unit/kg/hr .Q0M [facility] 0 mls/hr Titration Protocol Per Protocol Diltiazem HCl 125 mg/ Sodium 125 mls @ 0 mls/h r 06/16/20 20:45 06/18/20 04:53 Chloride IV 7.5 mg/hr .Q0M [facility] 7.5 mls/hr Titration Protocol Per Protocol Norepinephrine Bit artrate 4 mg 254 mls @ 0 mls/h r 06/17/20 17:15 06/18/20 01:40 / Dextrose IV 2 mcg/min .Q0M [facility] 7.6 mls/hr Titration Protocol Per Protocol Levothyroxine Sodi um 225 mcg 06/16/20 09:00 06/17/20 11:24 Synthroid PO 225 mcg DAILY [facility] Administration Lorazepam 1 mg 06/15/20 20:52 06/17/20 21:21 Ativan IVP 1 mg Q6H PRN Administration ANXIETY Pantoprazole Sodiu m 40 mg 06/17/20 08:00 06/17/20 19:42 Protonix IVP 40 mg Q12H [facility] Administration Vitals/I&O/Wt Last Vital Signs Temp 98.5 F 06/18/20 06:00 Pulse 111 H 06/18/20 06:00 Resp 28 H 06/18/20 06:00 BP 83/56 06/18/20 06:00 Pulse Ox 100 06/18/20 06:00 06/17/20 06/18/20 06/18/20 22:59 06:59 14:59 Intake Total 834.896 / 1591.510 163.655 / 1755.165 Output Total 1550 / 2300 850 / 3150 Balance -715.104 / -708.490 -686.345 / -1394.835 Physical Exam Const: COMMON NORMALS: no acute distress and alert GENERAL APPEARANCE: cooperative, comfortable, ill appearing and frail appearing NUTRITIONAL APPEARANCE: obese morbidly obese OTHER: -quite fatigued HENMT: COMMON NORMALS: normocephalic and atraumatic HEAD & SCALP: normocephalic and atraumatic GENERAL EAR: hearing grossly impaired Laterality: diffuse OTHER: -epistaxis Eye: COMMON NORMALS: Equal, round and reactive pupils present, EOMs intact bilaterally and conjunctivae normal CONJUNCTIVA: Yes conjunctivae normal PUPIL: Yes Equal, round and reactive pupils present Neck/C-Spine: GENERAL: Yes normal visual inspection and Yes trachea midline Resp: COMMON NORMALS: normal respiratory effort, No retractions and No use of accessory muscles EFFORT & INSPECTION: Yes symmetric chest movement, Yes tachypneic and Yes prolonged expiratory phase AUSCULTATION: diminished lung sounds OTHER: -on heated high flow, FiO2-40%, 35 L Cardio: COMMON NORMALS: S1 normal heart sound present, S2 normal heart sound present and No murmurs present (Cardio) RATE: tachycardic RHYTHM: abnormal rhythm irregularly irregular HEART SOUNDS: S1 normal heart sound present and S2 normal heart sound present OTHER: -normotensive though still on pressor support GI: COMMON NORMALS: Normal to inspection, nondistended, normoactive bowel sounds present and Soft to palpation INSPECTION: Yes central obesity PALPATION: Yes Soft to palpation : BLADDER/KIDNEY EXAM: Yes catheter in place Catheter type (Female): urethral OTHER: -R femoral central line; no longer oozing Extremity: COMMON NORMALS: normal to inspection and full ROM; negative for no pedal edema NARRATIVE EXTREMITY EXAM: -bilateral LE pitting edema up to thigh level GENERAL: Yes edema (bilateral LEs) Neuro: COMMON NORMALS: moves all extremities, no focal motor deficits and no sensory deficits noted SENSORIUM/ORIENTATION: Yes alert OTHER: -arousable for very brief periods of time Psych: COMMON NORMALS: mental status grossly normal, Normal thought process present, cooperative, normal affect and speech normal SPEECH: Yes normal speech THOUGHT PROCESS: Normal thought process present Skin: COMMON NORMALS: no jaundice, no petechiae and no mottling NARRATIVE SKIN EXAM: -noted open ulcers on L leg, noted purulent drainage; overall unchanged. Urinary Catheter Management^: Boswell: Cath Placed During This Visit: yes Reason for Continuing Indwelling Catheter: Accurate Measurement of Urinary Output in Critically Ill Patients Urinary Catheter Date of Insertion: 06/15/20 Urinary Catheter Time of Insertion: 19:50 Data : 06/18/20 18:30 06/18/20 04:00 Micro: Microbiology 06/16/20 08:35 Urine Culture - Final Urine,Clean Catch A&P Assessment and plan (1) Septic shock: -Likely secondary to acute hypoxic respiratory failure with evidence of multiorgan failure including acute renal injury, acute liver failure. Clinical suspicion for cardiogenic shock given concern for pericardial effusion, noted clinical evidence of acute CHF exacerbation -Noted resolved leukocytosis, continued pressor requirement, significant lactic acidosis trending down, continued oxygen requirement due to persistent hypoxia -daily labs -Is already on broad-spectrum IV antibiotics -CT A/P due to multi-organ involvement to r/o additional sources of infection with no noted acute abnormalities -blood cx prelim negative -UA indicative of infection; urine cx prelim negative -noted evidence of small to moderate pericardial effusion per bedside US, Echo and on CT A/P -supratherapeutic INR, noted oozing from R femoral central line, thrombocytopenia, worsening anemia; hold futher anticoagulation for now. Continue to trend coags Status: Acute (2) Respiratory failure with hypoxia: -[facility] since COVID-[facility] infection, was on 3 L consistently -alternating between HHFNC and BiPAP use, decreasing oxygen requirement, low threshold for intubation -hemodynamically unstable; on pressor support, wean as tolerated -close monitoring of respiratory status and vital signs -rapid COVID-19 test negative. Recently treated for COVID-19 pneumonia requiring hospitalization -previously treated with antibiotics, has been on doxycycline and levaquin -noted PCN allergy, on empiric antibiotics (Vanc, Levaquin, Aztreonam) -blood cx: prelim negative -CXR with reported improvement in right pleural effusion, continued consolidation/pleural effusion on the left -Telemetry monitoring -afebrile, no leukocytosis, noted significant lactic acidosis with level of 7, trending down -Concern for severe sepsis as evidenced by hypoxia, tachypnea, hypotension, lactic acidosis -influenza, bacterial antigens, Legionella, MRSA negative -Boswell catheter placed for accurate Is & Os Status: Acute Qualifiers: Chronicity: acute on chronic Qualified Code(s): J96.21 - Acute and chronic respiratory failure with hypoxia (3) Shock liver: -noted significant increase in LFTs indicating acute liver failure -likely related to cardiogenic shock as noted above -has known large left hepatic lobe lesion; stable per repeat imaging -continue to trend LFTs; improving Status: Acute (4) Sepsis: -as noted above Status: Acute Qualifiers: Acute respiratory failure type: with hypoxia Sepsis acute organ dysfunction status: with acute organ dysfunction Sepsis type: sepsis due to unspecified organism Severe sepsis acute organ dysfunction type: acute respiratory failure Severe sepsis shock status: with septic shock Qualified Code(s): A41.9 - Sepsis, unspecified organism; R65.21 - Severe sepsis with septic shock; J96.01 - Acute respiratory failure with hypoxia (5) Acute kidney injury: -continued acute renal impairment -baseline Cr appears to be around 1.2-1.6 -off IV fluid hydration -Continue to monitor renal function, renally dose meds, avoid nephrotoxins -diuretics on hold due to renal impairment and hypotension -CPK wnl -nephrology consult appreciated -good urine output overnight; has Boswell catheter in place -UA with some proteinuria, blood Status: Acute (6) Acute exacerbation of CHF (congestive heart failure): -Chronic HFpEF; concern for acute exacerbation given BNP elevation (8909), LE edema part of which may be chronic -continue to hold diuretics for now due to hypotension and renal impairment. -repeat Echo: EF=55%, G2DD, small to moderate pericardial effusion but no tamponade physiology. Findings discussed with Dr. Ramsey -may need formal cardiology evaluation particularly if continued hemodynamic instability Status: Acute Qualifiers: Heart failure type: diastolic Qualified Code(s): I50.33 - Acute on chronic diastolic (congestive) heart failure (7) Elevated troponin: -noted elevated troponins with no significant delta x 2 hrs -this is likely type II due to demand ischemia secondary to severe sepsis -Echo (09/2019): EF=55%, no RWMA, biatrial enlargement, mild-moderate , mild TR. Repeat Echo noted above Status: Acute (8) Anemia: -baseline Hg is around 9 -continue to trend H/H; gradual drop and will need transfusion of blood products today with Hg down to 7 Status: Chronic Qualifiers: Anemia type: unspecified type Qualified Code(s): D64.9 - Anemia, unspecified (9) Aortic stenosis: -noted mild to moderate per last Echo (09/2019) Status: Chronic Qualifiers: Cardiac valve disease etiology: etiology unspecified Qualified Code(s): I35.0 - Nonrheumatic aortic (valve) stenosis (10) Hyperlipidemia: -on statin Status: Chronic Qualifiers: Hyperlipidemia type: unspecified Qualified Code(s): E78.5 - Hyperlipidemia, unspecified (11) Hypertension: -currently requiring pressor support; BP is improving -continue to hold oral antihypertensives Status: Chronic Qualifiers: Hypertension type: essential hypertension Qualified Code(s): I10 - Essential (primary) hypertension (12) Pulmonary embolism: -prior hx of PE, has been on AC with Eliquis -was on heparin drip; now on hold due to noted supratherapeutic INR, thrombocytopenia, worsening anemia, oozing from central line Status: Chronic Qualifiers: Acute cor pulmonale presence: unspecified Chronicity: chronic Pulmonary embolism type: unspecified Qualified Code(s): I27.82 - Chronic pulmonary embolism (13) Atrial fibrillation with RVR: -failed metoprolol, digoxin, on Cardizem drip currently with little change -no amiodarone right now due to deranged hepatic function -telemetry monitoring -cardiology evaluation tomorrow -continues to require pressor support Status: Acute Additional A&P Information -coagulopathy likely related to liver failure and shock; elevated D-dimer; could be secondary to shock, heparin drip on hold due to noted supratherapeutic INR. Venous duplex negative for DVT, unable to get CTA due to renal impairment. Coags are trending down. Did have an episode of epistaxis today, now resolved. Monitor for further bleeding -Hyperkalemia, resolved; had been on potassium supplementation. Continue to monitor -Morbid obesity: BMI-44 kg/m2 -hx of hypothyroidism; on levothyroxine -LE edema and ulcers; wound care as needed -thrombocytopenia; noted gradual drop in platelet count, continue to monitor, likely related to shock -hypoalbuminemia; would likely benefit from albumin but would wait with need for transfusion to prevent fluid overload. Albumin may help with hemodynamics -CLD for now due to possible need for intubation -GI ppx with PPI -DVT ppx with SCDs -Dispo: return to [facility] -Code status: FULL code; discussed with daughter in law at bedside and [facility], paperwork in chart -continue ICU due to septic shock, high risk for decompensation with possible need for intubation, need for pressor support -guarded prognosis in light of evidence of multiorgan failure Attestations Medical Necessity Statement*: Patient requires hospitalization for continued treatment of critical illness, hemodynamic instability requiring pressor support, continued high oxygen requirement, abnormal liver and renal function, worsening anemia requiring transfusion of blood products today. Time Spent in Patient Care: Greater than 35 minutes (>than 50% of time spent in counselling and/or direct pt care on unit). Critical Care Time: The high probability of a clinically significant, sudden or life threatening deterioration of the patient's [cardiovascular, respiratory] system(s) required my full and direct attention, intervention and personal management. The critical care time is as shown. This time is in addition to time spent performing any reported procedures but includes the following: [x] Data and vital sign review and interpretation [x] Patient assessment, examination and intervention [x] Documentation [x] Medication orders and management Critical Care Time (min): 30 Coding Level of Care Code Acute Certified Driver Examiner for Lan Fwd Exam Comprehensive Diagnoses Septic shock A41.9; R65.21 Respiratory failure with hypoxia J96.21 Chronicity: acute on chronic Shock liver K72.00 Sepsis A41.9; R65.21; J96.01 Acute respiratory failure type: with hypoxia Sepsis acute organ dysfunction status: with acute organ dysfunction Sepsis type: sepsis due to unspecified organism Severe sepsis acute organ dysfunction type: acute respiratory failure Severe sepsis shock status: with septic shock Acute kidney injury N17.9 Acute exacerbation of CHF (congestive heart failure) I50.33 Heart failure type: diastolic Elevated troponin R79.89 Anemia D64.9 Anemia type: unspecified type Aortic stenosis I35.0 Cardiac valve disease etiology: etiology unspecified Hyperlipidemia E78.5 Hyperlipidemia type: unspecified Hypertension I10 Hypertension type: essential hypertension Pulmonary embolism I27.82 Acute cor pulmonale presence: unspecified Chronicity: chronic Pulmonary embolism type: unspecified Atrial fibrillation with RVR I48.91
--- NOTE | 2020-06-18 09:38 | PM.CONSULT ---
Providers/Reason For Consult Consulting Physican/Specialty*: Dr. Ramsey, cardiology Reason for Consult*: Atrial fibrillation with rapid response, pericardial effusion Attending Physician: Kelsy Ramirez MD Primary Care Provider: Kristian Rincon DO History of Present Illness History of Present Illness Krystal Andrews is a 74 year old female of hypertension, anemia, obesity, hypothyroidism, hyperlipidemia, history of PE and recent hospitalization for COVID-19 pneumonia. She was has hospitalized from -30 of May and received 5-day course of remdesivir and dexamethasone. She was also treated with antibiotics for cellulitis, UTI and possible superimposed pneumonia. She was hospitalized again on 15 June 2020 with hypoxia and oxygen saturation high 80s and started in spite of supplemental oxygen. Rapid Covid test was negative. Placed initially on BiPAP and later on through the night she required pressor support with Levophed. She went into atrial fibrillation with rapid ventricular response and was started on Cardizem drip as well. She remained in A. fib with RVR. Echo showed small to moderate pericardial effusion. I have been asked to assist and evaluate in further management. Review of Systems General: Reports: 10 or more systems reviewed and unremarkable except in HPI and below Const: Reports: fatigue; Denies: fever(s) ENMT: Denies: epistaxis Card: Denies: chest pain Resp: Reports: dyspnea and productive cough GI: Denies: hematochezia : Denies: hematuria Musc: Reports: extremity swelling Skin/Breast: Reports: erythema; Denies: rash Neuro: Denies: headache(s) Liam/Lymph: Denies: petechiae or purpura Meds/Allergies Home Medications and Allergies Home Medications Medication Instructions Recorded Confirmed Last Taken Type aspirin 81 mg PO DAILY 09/21/19 06/15/20 06/15/20 History levothyroxine 225 mcg PO DAILY 09/21/19 06/15/20 06/15/20 History Eliquis 2.5 mg PO BID #30 tab 10/02/19 06/15/20 06/15/20 Rx atorvastatin 40 mg PO BEDTIME #30 tab 10/02/19 06/15/20 06/14/20 Rx folic acid 1 mg PO DAILY #30 tab 10/02/19 06/15/20 06/15/20 Rx metoprolol tartrate 100 mg PO BID #120 tab 10/02/19 06/15/20 06/15/20 Rx pantoprazole 40 mg PO BID #60 tab 10/02/19 06/15/20 06/15/20 Rx sennosides-docusate sodium 2 tab PO BID #60 tab 10/02/19 06/15/20 06/15/20 Rx budesonide 2 inh INHALATION Q12H #1 each 06/01/20 06/15/20 06/15/20 Rx acetaminophen [Tylenol] 350 mg PO DAILY 06/15/20 06/15/20 06/15/20 History bisacodyl 10 mg ID DAILY PRN 06/15/20 06/15/20 Unknown History cyanocobalamin (vitamin B-12) 1,000 mcg SUBCUT Q30D 06/15/20 06/15/20 Unknown History eucalyptus oil-menthol [Cough 8 mg MUCOUS MEMBRANE Q2H PRN 06/15/20 06/15/20 Unknown History Drops (with eucalyptus)] furosemide [Lasix] 80 mg PO DAILY 06/15/20 06/15/20 06/15/20 History levofloxacin 500 mg PO DAILY 06/15/20 06/15/20 06/15/20 History magnesium hydroxide [Milk of 400 mg PO DAILY PRN 06/15/20 06/15/20 Unknown History Magnesia] ondansetron HCl [Zofran] 4 mg PO Q6H 06/15/20 06/15/20 06/15/20 History potassium chloride 20 meq PO DAILY 06/15/20 06/15/20 06/15/20 History sodium phosphates [Fleet Enema] 118 ml ID DAILY PRN 06/15/20 06/15/20 Unknown History verapamil 120 mg PO DAILY 06/15/20 06/15/20 06/15/20 History Allergies Allergy/AdvReac Type Severity Reaction Status Date / Time Penicillins Allergy ALGY-Hives Verified 06/15/20 13:47 Current Medications Current Medications Generic Name Dose Route Start Last Admin Trade Name Freq PRN Reason Stop Dose Admin Aspirin 81 mg 06/16/20 09:00 06/16/20 09:09 Aspirin Chewable PO 81 mg DAILY KAROLINA Administration Atorvastatin Calcium 40 mg 06/15/20 21:00 06/17/20 21:21 Lipitor PO 40 mg BEDTIME KAROLINA Administration Dextrose 25 ml 06/15/20 22:42 06/15/20 23:03 D50w IVP 25 ml ONCE PRN Administration hypoglycemia protocol Protocol Folic Acid 1 mg 06/16/20 09:00 06/17/20 11:24 Folic Acid PO 1 mg DAILY KAROLINA Administration Heparin Sodium (Beef Lung) 0 unit 06/15/20 19:17 06/15/20 22:51 Heparin IV 6,500 unit PRN PRN Administration Heparin weight-base protocol Protocol Vancomycin HCl 1,500 mg/ 250 mls @ 166.667 mls/hr 06/15/20 20:00 06/17/20 22:06 Sodium Chloride IV Infused Q48H KAROLINA Infusion Protocol Levofloxacin/Dextrose 750 mg in 150 mls @ 100 mls/hr 06/15/20 19:30 06/17/20 21:14 Levaquin-D5w IV Infused Q48H KAROLINA Infusion Protocol Heparin Sodium/Sodium Chloride 25,000 unit in 500 mls @ 0 mls/hr 06/15/20 19:30 06/17/20 09:00 Heparin Drip IV 0 unit/kg/hr .Q0M KAROLINA 0 mls/hr Titration Protocol Per Protocol Diltiazem HCl 125 mg/ Sodium 125 mls @ 0 mls/hr 06/16/20 20:45 06/18/20 04:53 Chloride IV 7.5 mg/hr .Q0M KAROLINA 7.5 mls/hr Titration Protocol Per Protocol Norepinephrine Bitartrate 4 mg 254 mls @ 0 mls/hr 06/17/20 17:15 06/18/20 01:40 / Dextrose IV 2 mcg/min .Q0M KAROLINA 7.6 mls/hr Titration Protocol Per Protocol Levothyroxine Sodium 225 mcg 06/16/20 09:00 06/17/20 11:24 Synthroid PO 225 mcg DAILY KAROLINA Administration Lorazepam 1 mg 06/15/20 20:52 06/17/20 21:21 Ativan IVP 1 mg Q6H PRN Administration ANXIETY Pantoprazole Sodium 40 mg 06/17/20 08:00 06/17/20 19:42 Protonix IVP 40 mg Q12H KAROLINA Administration PFSH Acute PFSH: Medical History Acute kidney injury Anemia Aortic stenosis Atrial fibrillation and flutter Chronic kidney disease, stage II (mild) CKD (chronic kidney disease) CVA (cerebral vascular accident) DJD (degenerative joint disease) GERD (gastroesophageal reflux disease) Hyperlipidemia Hypertension Hypothyroidism Obesity Pneumonia due to COVID-19 virus Pulmonary embolism Respiratory failure with hypoxia UTI (urinary tract infection) Surgical History History of cholecystectomy History of hernia repair History of tubal ligation Family History Other CAD (coronary artery disease) Social History Smoking and tobacco status: never smoked Alcohol intake: never Housing: [facility] Current occupational status: retired Vitals/I&O/Wt Last Vital Signs Temp 98.9 F 06/18/20 08:00 Pulse 123 H 06/18/20 08:59 Resp 22 H 06/18/20 08:59 BP 96/48 06/18/20 08:00 Pulse Ox 96 06/18/20 08:59 06/17/20 06/18/20 06/18/20 22:59 06:59 14:59 Intake Total 834.896 / 1591.510 163.655 / 1755.165 Output Total 1550 / 2300 850 / 3150 Balance -715.104 / -708.490 -686.345 / -1394.835 Physical Exam Narrative: EXAM NARRATIVE: GENERAL:obese lady sitting propped up in bed in mild respiratory distress; currently on 4 L of O2 HEENT: Pupils equal round reactive to light. Mild pallor or icterus. NECK: JVD not appreciated, No carotid bruit. CARDIOVASCULAR SYSTEM: S1-S2 irregular. tachycardia+ ;No murmur rubs or gallops. RESPIRATORY SYSTEM: Chest clear to auscultation anteriorly. Decreased breath sounds on left side No wheezes rhonchi or rubs heard. ABDOMEN: Soft, nontender and nondistended. Normal bowel sounds present. EXTREMITIES: No cyanosis or clubbing. 1-2+ edema (R>L). No signs of chronic venous insufficiency. warm extremeties GUTTER HANGER: Patient is alert oriented ?3. No focal neurological deficits. SKIN: Normal turgor and temperature. left leg erythema+, discharge+ Urinary Catheter Management^: Boswell: Cath Placed During This Visit: yes Reason for Continuing Indwelling Catheter: Accurate Measurement of Urinary Output in Critically Ill Patients Urinary Catheter Date of Insertion: 06/15/20 Urinary Catheter Time of Insertion: 19:50 Data Micro: Micro: Microbiology 06/16/20 08:35 Urine Culture - Fi nal Urine,Clean Catch MRSA culture nares negative Blood culture x2 negative to date from 15 June. Urine Legionella antigen negative. Imaging^: CT Abd/Pel: Radiologist's impression: IMPRESSION: 1. Stable large left hepatic lobe cystic lesion unchanged. Today this measures approximately 13.4 x 13.8 x 14.1 cm. Differential considerations are unchanged and include echinococcal cyst, biliary cystadenoma, and atypical hepatic adenoma. 2. Prior cholecystectomy. 3. Small to moderate pericardial effusion partially visualized. 4. Small left greater than right pleural effusions. Compressive atelectasis left lower lobe. 5. Bilateral renal cortical atrophy with atrophic kidneys. 6. Previously. Ventral abdominal wall hernia with ectatic anterior abdominal wall. No evidence of high-grade obstruction. 7. Small amount of free fluid in the pelvis. 8. Boswell catheter in place. Other Data: Attestation for Other Data: I personally reviewed and interpreted the following: Other data: Transthoracic echo 21 September 2019 CONCLUSIONS Normal left ventricular size and systolic function, 55%.no regional wall motion abnormalities. Thickened aortic valve. Mild to moderate aortic valve stenosis with a valve area 1.17 cm squared. Peak velocity 2.51m/s with a peak gradient of 25 and a mean gradient of 14 millimeters of mercury. Mild tricuspid valve regurgitation. Estimated pulmonary artery peak systolic pressure was 34 mmHg There is no pericardial effusion. There are no intracardiac masses. Transthoracic echocardiogram 16 June 2020 CONCLUSIONS 1. This is a technically very difficult study. 2. Normal left ventricular cavity size and normal left ventricular systolic function. Left ventricular ejection fraction is estimated at 55 %. Although no diagnostic regional wall motion abnormality could be identified. this possibility cannot be completely excluded based on the study. Grade 2 diastolic dysfunction with elevated filling pressure. 3. Normal right ventricular size and systolic function. 4. Normal pulmonary artery pressure. 5. Nvcpr-wh-[id number] pericardial effusion loculated more along left ventricular free wall. No evidence of tamponade physiology based on this study. 6. Compared to previous echocardiogram dated 09/21/19, there is pericardial effusion now. A&P Assessment and plan (1) Septic shock: Cultures negative so far. -recommend CT chest -broad spectrum antibiotics as per primary team. Status: Acute (2) Atrial fibrillation with RVR: Patient is on cardizem drip, PRN metoprolol 2.5 mg IV and heparin gtt (held d/t drop in H&H) -Minimal requirement of levophed. -recommend weaning off levophed and starting on low dose metoprolol 12.5 mg TID -start on digoxin in the interim. Status: Acute (3) Acute exacerbation of CHF (congestive heart failure): She has received intermittent doses of diuretic. Status: Acute Qualifiers: Heart failure type: diastolic Qualified Code(s): I50.33 - Acute on chronic diastolic (congestive) heart failure (4) Pericardial effusion without cardiac tamponade: Repeat echo done bedside showed Moderate to large circumferential pericardial effusion. -No evidence of tamponade physiology presently. -will avoid agressive diuresis. -May consider tap however, INR elevated and platelets dropping. closely monitor. -f/u CBC and PT/INR in am. Status: Acute (5) Respiratory failure with hypoxia: Status: Acute Qualifiers: Chronicity: acute on chronic Qualified Code(s): J96.21 - Acute and chronic respiratory failure with hypoxia (6) Shock liver: Liver enzymes improving Status: Acute (7) Elevated troponin: Status: Acute Additional A&P Information PIETER: renal function improving, nephrology on board Moderate left pleural effusion Anemia: recieving 2 units of pRBC Thank you for allowing me to participate in patient's care. 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
[2020-06-18 11:11] LABS: Iron 62 ug/dL (37-145); Percent Saturation 52.9 % (20-50); Total Iron Binding Capacity 117 mcg/dl; Unsaturated Iron Binding 55 ug/dL (112-347)
[2020-06-18 11:14] LABS: Glucose Point of Care 103 mg/dL (70-110)
[2020-06-18 11:55] LABS: Ferritin 16422 ng/mL (15-150)
[2020-06-18] MEDS: sodium chloride 0.9% (100 ml) 100 ML ×2 (12:31→18:04)
--- NOTE | 2020-06-18 13:12 | USCV_ITS ---
Krystal Andrews Age: 74 Gender: F : 1945 Exam Date: 06/18/2020 13:39 Ordering Phys: Tanisha Ramsey MD Technologist: Dominique Reeves [place] [facility] [place]: Pericardial effusion BP: 100 / 62 HR: Rhythm: Sinus Technical Quality: Fair MEASUREMENTS (Male / Female) Normal Values 2D ECHO LV Diastolic Diameter PLAX 3.4 cm 4.2 - 5.9 / 3.9 - 5.3 cm LV Systolic Diameter PLAX 2.1 cm IVS Diastolic Thickness 1.2 cm 0.6 - 1.0 / 0.6 - 0.9 cm IVS Systolic Thickness 1.7 cm LVPW Diastolic Thickness 1.1 cm 0.6 - 1.0 / 0.6 - 0.9 cm LVPW Systolic Thickness 1.5 cm LVOT Diameter 2.0 cm LV Ejection Fraction 2D Teich 70.5 % M-MODE LV Diastolic Diameter MM 4.5 cm 4.2 - 5.9 / 3.9 - 5.3 cm LV Systolic Diameter MM 3.0 cm LV Ejection Fraction MM Teich 61.0 % IVS Diastolic Thickness MM 1.0 cm 0.6 - 1.0 / 0.6 - 0.9 cm IVS Systolic Thickness MM 1.3 cm LVPW Diastolic Thickness MM 1.2 cm 0.6 - 1.0 / 0.6 - 0.9 cm LVPW Systolic Thickness MM 1.4 cm DOPPLER AV Peak Velocity 259.0 cm/s LVOT Peak Velocity 104.0 cm/s AV Area Cont Eq vti 1.3 cm squared AV Area Cont Eq pk 1.3 cm squared FINDINGS Left Ventricle Normal left ventricular cavity size and systolic function. Left ventricular ejection fraction is estimated at 60 %. No regional wall motion abnormalities. Right Ventricle Normal right ventricular size and systolic function. Right Atrium Moderately increased right atrial size. Left Atrium Moderately increased left atrial size. Mitral Valve Moderate mitral annular calcification. Thickened mitral valve. Aortic Valve Thickened and calcified trileaflet aortic valve. Aortic valve visually appears to have moderate stenosis. Mild aortic valve stenosis, peak velocity 2.6 m/s, peak gradient 28 mm Hg, mean gradient 16 mmHg, JULIA 1.3 cm squared. Tricuspid Valve Structurally normal tricuspid valve. [id number] tricuspid valve regurgitation. Pulmonic Valve Pulmonic valve not well visualized. Pericardium Moderate to large circumferential pericardial effusion measured 18 mm anteriorly and 22 mm posteriorly. No evidence of pericardial tamponade physiology. Aorta Normal sized aortic root. Dilated inferior vena cava with no respiratory variation. CONCLUSIONS 1. This is a limited study. 2. Normal left ventricular cavity size and systolic function. Left ventricular ejection fraction is estimated at 60 %. No regional wall motion abnormalities. 3. Moderate biatrial enlargement. 4. Aortic valve visually appears to have moderate stenosis. Possibly mild to moderate aortic valve stenosis, peak velocity 2.6 m/s, peak gradient 28 mm Hg, mean gradient 16 mmHg, JULIA 1.3 cm squared. 5. Moderate to large circumferential pericardial effusion measured 18 mm anteriorly and 22 mm posteriorly. No evidence of pericardial tamponade physiology. 5. Direct comparison to previous study not possible given technical differences in studies. Pericardial effusion may have increased in size somewhat. Tanisha Ramsey MD (Electronically Signed) Final Date: 20 June 2020 10:10 S
--- NOTE | 2020-06-18 13:25 | ECG_ITS ---
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 Measurements Intervals [place] Rate: 114 P: AL: -1 QRS: 17 QRSD: 141 T: -59 QT: 337 QTc: 465 Interpretive Statements ATRIAL FIBRILLATION WITH RAPID VENTRICULAR RESPONSE INDETERMINATE AXIS RIGHT BUNDLE BRANCH BLOCK [120+ ms QRS DURATION, UPRIGHT V1, 40+ ms S IN I/aVL/V4/V5/V6] MODERATE T-WAVE ABNORMALITY, CONSIDER INFERIOR ISCHEMIA [-0.1+ mV T WAVE IN II/aVF] Compared to ECG 06/15/2020 19:45:28 Indeterminate axis now present T-wave abnormality now present Possible ischemia now present Sinus bradycardia no longer present Sinus arrhythmia no longer present Prolonged QT interval no longer present Electronically Signed On 06-19-2020 8:24:32 BENEFITS OFFICER by Tanisha Ramsey M.D. [email or web address]
--- NOTE | 2020-06-18 13:59 | PC.NURSE ---
ULTRASOUND & DR BENJAMIN IN ROOM FOR ECHO. FIRST UNIT OF BLOOD INFUSING WITHOUT REACTION REPORTED.
--- NOTE | 2020-06-18 14:34 | PC.NURSE ---
NO REACTION NOTED R/T TO BLOOD TRANSFUSION. TOLERATED WELL. WILL CONTINUE TO MONITOR.
--- NOTE | 2020-06-18 14:49 | CTR_ITS ---
PROCEDURE INFORMATION: Exam: CT Chest Without Contrast Exam date and time: 06/18/2020 3:56 PM Age: 74 years old Clinical indication: Shortness of breath; Patient HX: SOB a-fib w rvr; Additional info: Hemodynamic instability, high oxygen requirement TECHNIQUE: Imaging protocol: Computed tomography of the chest without contrast. Radiation optimization: All CT scans at this facility use at least one of these dose optimization techniques: automated exposure control; mA and/or kV adjustment per patient size (includes targeted exams where dose is matched to clinical indication); or iterative reconstruction. COMPARISON: CTA Thorac/Abd Aor [id number] 06/27/2019 4:53 AM RADIATION DOSE METRICS: Total DLP (mGy-cm): 915.68 FINDINGS: Lungs: Compressive atelectasis of the left lower lobe. Partial atelectasis of the posterior right lower lobe. Prominence of the pulmonary interstitium suggesting mild interstitial edema. Pleural space: Small bilateral pleural effusions, left larger than right. Heart: Moderate cardiomegaly is noted. Large pericardial effusion, measuring up to 30 mm in thickness. Aorta: The thoracic aorta is mildly atherosclerotic. No thoracic aortic aneurysm. Lymph nodes: No pathologically enlarged lymph nodes are demonstrated. Bones/joints: No fracture or other acute osseous abnormality. Degenerative spine changes are noted. Soft tissues: Unremarkable. CT/CT chest wo con [id number] IMPRESSION: 1. Moderate cardiomegaly is noted. Large pericardial effusion, measuring up to 30 mm in thickness. 2. Compressive atelectasis of the left lower lobe. Partial atelectasis of the posterior right lower lobe. Prominence of the pulmonary interstitium suggesting mild interstitial edema. 3. Small bilateral pleural effusions, left larger than right. 4. The findings are new when compared to 06/27/2019. Radiation Dose CTDIVOL = (mGy): DLP = 915.68 (mGy-cm)
[2020-06-18] MEDS: levothyroxine 150 mcg Tablet 225 MCG PO (15:01)
[2020-06-18] MEDS: bumetanide 0.25 mg/mL SDV 10 mL 1 MG IV (15:02)
[2020-06-18] MEDS: digoxin 250 mcg/ml INJ 2 mL IVP (15:03)
[2020-06-18 15:52] LABS: Lactate Dehydrogenase 337 U/L (135-214)
[2020-06-18] MEDS: metoprolol tartrate 1 mg/1 mL SDV 5 mL 2.5 MG IV (17:40)
[2020-06-18] MEDS: oxymetazoline 0.05% Nasal Spray 15 mL 2 SPRAY NOSTRIL-B (18:03)
[2020-06-18 18:43] LABS: Platelet Count 83 10^3/cmm (130-400)
[2020-06-18 18:50] LABS: INR 1.92 (0.8-1.2)
[2020-06-18 18:59] LABS: D Dimer 3.87 ug/mIFEU (0-0.59)
--- NOTE | 2020-06-18 19:20 | PC.NURSE ---
NOSE BLEED CLAMP PLACED ON NOSE TO CONTROL BLEEDING. REMOVED AFTER APPROXIMATELY 45MIN. PT THEN BEGAIN TO COUGH D/T DRAINAGE IN THROAT. JONATHANKUER USED TO SUCTION BLOOD. TAKEN TO CT SCAN. THEN BACK TO ROOM DR MAJOR NOTIFIED OF NOSEBLEED. NEW ORDERS RECEIVED. DR BENJAMIN NOTIFIED OF NO CHANGE IN HEART RATE, NEW ORDERS RECEIVED. 2ND UNIT OF PRBC STARTED. OXYMASK PLACED ON PT D/T NOSEBLEED. REPORT GIVEN TO NIK GALLEGO.
--- NOTE | 2020-06-18 19:43 | PC.NURSE ---
Spoke with Dr Tierney, agrees to finish blood transfusion and then stop Cardizem and begin Amidrone infusion. Pt a/ox4, Levophed at 3mcg/min, Cardizem at 7.5ml/hr, and blood infusing at 150ml/hr. Will continue to monitor pt's VS.
--- NOTE | 2020-06-18 20:15 | PC.NURSE ---
Pt resting comfortably watching television, will continue to monitor patient for significant changes. Denies needs at this time
--- NOTE | 2020-06-18 20:25 | PC.NURSE ---
Pt has slight bleeding for the right nare, used Afrin, seems to have controlled bleeding at this time
--- NOTE | 2020-06-18 21:06 | PC.NURSE ---
Spoke with Dr Tierney concerning Liver tests and pericardial effusion, states she spoke with Dr Beltran and next treatment of choice is Amiodrone infusion, explained I will begin infusion slowly. Dr Tierney agrees with decision.
[2020-06-18 21:07] LABS: Glucose Point of Care 93 mg/dL (70-110)
[2020-06-18] MEDS: atorvastatin 40 mg Tablet PO (21:21)
[2020-06-18] MEDS: pantoprazole 40 mg SDV IVP (21:21)
--- NOTE | 2020-06-18 21:41 | PC.NURSE ---
Called and spoke with Dr Phipps regarding Amiodarone bolus and elevated liver enzymes, Dr Phipps states to dc bolus and start Amiodarone slowly 0.5mg/ml and watch patient for changes.
--- NOTE | 2020-06-18 22:04 | PC.NURSE ---
Dr Guy called states to increase Amiodarone to 1m/min, also states to call her if I have further questions regarding patient's care throughout the night. Explained my concern regarding Amiodarone toxity due to elevated liver enzymes, states that due to decrease of liver enzymes to increase to 1mg/min. Also Dr states to try and remove Levophed during the night, explained pt's BP is [address] explained to continue to monitor and move patient off Levo tonight.
--- NOTE | 2020-06-18 22:48 | PC.NURSE ---
Pt resting with eyes closed, Ami running at 1mg/min, heart rate at 105 still Irregular at this time, will continue to monitor HR and BP
--- NOTE | 2020-06-18 23:05 | PC.NURSE ---
Dr Bauer wants the Ami bolus, verified with La Nena RN, will continue infusion after bolus
--- NOTE | 2020-06-18 23:07 | PC.NURSE ---
Pt resting with eyes closed, will continue to monitor patient closely for significant changes
[2020-06-19] VITALS (19 sets, daily range): BP systolic 83–145; BP diastolic 53–103; PULSE 95–126; RESP 21–101; TEMP 36.8–37.1; O2SAT 94–102
[2020-06-19 05:04] LABS: INR 1.76 (0.8-1.2)
[2020-06-19 05:09] LABS: Albumin Level 2.9 g/dL (3.5-5.2); Alkaline Phosphatase 214 IU/L (35-105); Anion Gap 11.9 (5-19); Aspartate Amino Transferase 288 U/L (0-32); Blood Urea Nitrogen 44 mg/dL (8-23); Calcium 8.1 mg/dL (8.5-10.5); Carbon Dioxide 26 mmol/L (22-29); Chloride 107 mmol/L (98-107); Globulin 2.9 g/dL (1.3-4.6); Glucose 95 mg/dL (65-115); Magnesium 1.8 mg/dL (1.7-2.3); Osmolality Calculated 303 mOsm/kg (285-295); Phosphorus 3.8 mg/dL (2.5-4.5); Potassium 3.9 mmol/L (3.5-5.1); Sodium 141 mmol/L (136-145); Total Bilirubin 1.9 mg/dL (0.15-1.2); Total Protein 5.8 g/dL (6.6-8.7)
[2020-06-19 05:13] LABS: Alanine Aminotransferase 983 U/L (0-33)
--- NOTE | 2020-06-19 06:14 | P.PN_ITS ---
Subjective Subjective: Interval history: sob, swollen, uncomfortable Medications: Reviewed: Yes Medication Review Details: Current Medications Acetaminophen (Tylenol) 650 mg PO Q6H PRN PRN Reason: MILD PAIN Acetaminophen (Tylenol) 650 mg DE Q6H PRN PRN Reason: FEVER Albuterol Sulfate (Ventolin) 2 puff INHALATION Q4H.RESPIRATORY PRN PRN Reason: SHORTNESS OF BREATH Aspirin (Aspirin Chewable) 81 mg PO DAILY [facility] Last Admin: 06/16/20 09:09 Dose: 81 mg Documented by: Atorvastatin Calcium (Lipitor) 40 mg PO BEDTIME [facility] Last Admin: 06/18/20 21:21 Dose: 40 mg Documented by: Bisacodyl (Bisac-Evac) 10 mg DE DAILY PRN PRN Reason: Constipation Dextrose (D50w) 25 ml IVP ONCE PRN; Protocol PRN Reason: hypoglycemia protocol Last Admin: 06/15/20 23:03 Dose: 25 ml Documented by: Dextrose (D50w) 50 ml IVP PRN PRN; Protocol PRN Reason: hypoglycemia protocol Folic Acid (Folic Acid) 1 mg PO DAILY [facility] Last Admin: 06/18/20 14:57 Dose: Not Given Documented by: Glucagon (Glucagen) 1 mg IM ONCE PRN; Protocol PRN Reason: Adult Acute Hypoglycemia Prot. Heparin Sodium (Beef Lung) (Heparin) 0 unit IV PRN PRN; Protocol PRN Reason: Heparin weight-base protocol Last Admin: 06/15/20 22:51 Dose: 6,500 unit Documented by: Vancomycin HCl 1,500 mg/ (Sodium Chloride) 250 mls @ 166.667 mls/hr IV Q48H [facility]; Protocol Last Infusion: 06/17/20 22:06 Dose: Infused Documented by: Heparin Sodium/Sodium Chloride (Heparin Drip) 25,000 unit in 500 mls @ 0 mls/hr IV .Q0M [facility]; Protocol Last Titration: 06/17/20 09:00 Dose: 0 unit/kg/hr, 0 mls/hr Documented by: Dextrose (D5w) 500 mls @ 100 mls/hr IV ONCE PRN; Protocol PRN Reason: Adult Acute Hypoglycemia Prot Vasopressin 100 unit/ Sodium (Chloride) 100 mls @ 0 mls/hr IV .Q0M [facility]; Protocol Diltiazem HCl 125 mg/ Sodium (Chloride) 125 mls @ 0 mls/hr IV .Q0M [facility]; Protocol Last Titration: 06/18/20 21:51 Dose: 0 mg/hr, 0 mls/hr Documented by: Norepinephrine Bitartrate 4 mg (/ Dextrose) 254 mls @ 0 mls/hr IV .Q0M [facility]; Protocol Last Titration: 06/19/20 01:53 Dose: 2 mcg/min, 7.6 mls/hr Documented by: Amiodarone HCl 900 mg/Dextrose/ IV Miscellaneous Supplies 518 mls @ 0 mls/hr IV .Q0M [facility]; Protocol Last Titration: 06/19/20 05:42 Dose: 0.5 mg/min, 17.3 mls/hr Documented by: Imipenem/Cilastatin Sodium 250 (mg/ Sodium Chloride) 100 mls @ 200 mls/hr IV Q6H [facility] Last Admin: 06/19/20 03:30 Dose: 100 mls/hr Documented by: Levothyroxine Sodium (Synthroid) 225 mcg PO DAILY [facility] Last Admin: 06/18/20 15:01 Dose: 225 mcg Documented by: Lorazepam (Ativan) 1 mg IVP Q6H PRN PRN Reason: ANXIETY Last Admin: 06/17/20 21:21 Dose: 1 mg Documented by: Metoprolol Tartrate (Metoprolol Tartrate) 2.5 mg IV Q4H PRN PRN Reason: HEART RATE-HIGH Last Admin: 06/18/20 17:40 Dose: 2.5 mg Documented by: Ondansetron HCl (Zofran) 4 mg IVP Q6H PRN PRN Reason: NAUSEA AND VOMITING Pantoprazole Sodium (Protonix) 40 mg IVP Q12H [facility] Last Admin: 06/18/20 21:21 Dose: 40 mg Documented by: Vitals/I&O/Wt Last Vital Signs Temp 98.2 F 06/19/20 05:59 Pulse 101 H 06/19/20 05:59 Resp 32 H 06/19/20 05:59 BP 108/69 06/19/20 05:59 Pulse Ox 99 06/19/20 05:59 06/18/20 06/18/20 06/19/20 14:59 22:59 06:59 Intake Total 1086.125 / 1086.125 622.802 / 1708.927 524.016 / 2232.943 Output Total 350 / 350 950 / 1300 350 / 1650 Balance 736.125 / 736.125 -327.198 / 408.927 174.016 / 582.943 Physical Exam Narrative: EXAM NARRATIVE: elderly lady on nc 02- SOB in bed, uncomforable. pressers heent- nc/at, eomi, anicteric neck no jvp lung dull bases and crackles heart- irreg irreg, tachycardic abd soft, nt, nd, +BS ext b/l edema neuro- a,a, o x2 + morrison Urinary Catheter Management^: Morrison: Cath Placed During This Visit: yes Reason for Continuing Indwelling Catheter: Accurate Measurement of Urinary Output in Critically Ill Patients Urinary Catheter Date of Insertion: 06/15/20 Urinary Catheter Time of Insertion: 19:50 Data : 06/18/20 18:30 06/19/20 03:25 Micro: Microbiology 06/18/20 10:00 Gram Stain - Final Sputum - Expectorated Sputum 06/16/20 08:35 Urine Culture - Final Urine,Clean Catch CT Chest: My impression: cardiomegaly and large pericardial effusion, int edema, small b/l pleural effusions A&P Additional A&P Information 89 yr old female shock -likely combined cardiogenic and septic -no clear infectious source. On vanco, aztreonam, and levaquin. Leukocytosis has improved. FOLLOW VANCO LEVELS- KEEP TROUGH UNDER 19 2. Acute kidney injury due to hypotension, dec CO. lft's and CR are improving -pt needs BP support and HR control to improve CO and renal perfusion. 3. CKD stage 3- Serum Cr 1.4 mg/dL at last hospital discharge 4. anemia, thrombocytopenia- iron sat high at 53% [place] [address] -await ldh, retic, haptoglobin, spep -monitor hgb after prbc tx pt had a high INR- is improving 5. Lactic acidosis resolved, serum bicarbonate now normal 6. pericardial effusion and a fib w/ RVR per cardiology - agree w/ pericardiocentesis -diuresis per cardiology 7. Transaminitis improviing Attestations 2 Medical Necessity Statement*: pericardial effusion, tamera, sob, on abx Time Spent in Patient Care: 16 - 35 minutes Coding Level of Care Code Acute Personnel Quality Assurance Auditor for Chg Karson
--- NOTE | 2020-06-19 06:16 | PC.NURSE ---
Nephrology called this AM, decided to allow cardiology to take care of patient, will make no recommendations at this time.
--- NOTE | 2020-06-19 06:57 | PC.NURSE ---
Report given to NIK Cheung in SBAR format
[2020-06-19 07:01] LABS: Glucose Point of Care 89 mg/dL (70-110)
[2020-06-19 07:31] LABS: Glucose Point of Care 97 mg/dL (70-110)
[2020-06-19 08:00] LABS: D Dimer 3.58 ug/mIFEU (0-0.59)
[2020-06-19] MEDS: levothyroxine 150 mcg Tablet 225 MCG PO (08:42)
[2020-06-19] MEDS: folic acid 1 mg Tablet PO (08:42)
[2020-06-19] MEDS: pantoprazole 40 mg SDV IVP ×2 (08:43→20:16)
[2020-06-19] MEDS: digoxin 250 mcg/ml INJ 2 mL IVP (09:23)
[2020-06-19] MEDS: LORazepam 2 mg/mL INJ 1 mL 1 MG IVP (09:35)
[2020-06-19 09:51] LABS: Basophils % 0.3 %; Eosinophils # 0.1 10^3/uL (0.0-0.8); Eosinophils % 1.7 %; Hematocrit 34.4 % (37.0-47.0); Hemoglobin 9.5 g/dL (11.5-15.3); Lymphocytes # 0.4 10^3/uL (0.8-4.8); Lymphocytes % 6.7 %; Mean Corpuscular HGB Conc 27.6 g/dL (30.0-36.0); Monocytes # 0.4 10^3/uL (0.2-0.9); Monocytes % 5.6 %; Neutrophils # 5.45 10^3/uL (1.8-7.7); Neutrophils % 85.4 %; Nucleated Red Blood Cells % 0.5 %; Platelet Count 82 10^3/cmm (130-400); Red Blood Count 3.66 10^6/uL (4.1-5.3); Red Cell Distribution Width 18.9 % (12.1-15.1); White Blood Count 6.4 10^3/uL (4.0-10.0)
--- NOTE | 2020-06-19 11:16 | PM.PN ---
Subjective Subjective: Interval history: Patient continues to be tachycardic and tachypenic with laboured breathing. Other vitals and labs have been reviewed. Medications: Reviewed: Yes Vitals/I&O/Wt Last Vital Signs Temp 98.8 F 06/19/20 08:00 Pulse 126 H 06/19/20 08:00 Resp 31 H 06/19/20 08:00 BP 145/79 06/19/20 08:00 Pulse Ox 94 06/19/20 08:00 06/18/20 06/19/20 06/19/20 22:59 06:59 14:59 Intake Total 622.802 / 1708.927 624.016 / 2332.943 318.677 / 318.677 Output Total 950 / 1300 350 / 1650 175 / 175 Balance -327.198 / 408.927 274.016 / 682.943 143.677 / 143.677 Physical Exam Const: COMMON NORMALS: patient oriented x3 HENMT: COMMON NORMALS: normocephalic, atraumatic, hearing grossly normal bilaterally and external ears normal HEAD & SCALP: normocephalic and atraumatic EXTERNAL EAR: Yes external ears normal Eye: COMMON NORMALS: no scleral icterus GENERAL EYE: appearance normal, both eyes and all related structures Chest: COMMONS NORMALS: normal inspection of the chest and normal palpation of entire chest wall CHEST: Yes Symmetrical chest wall rise Resp: COMMON NORMALS: normal respiratory effort, No retractions, No use of accessory muscles and clear to auscultation bilaterally EFFORT & INSPECTION: Yes symmetric chest movement AUSCULTATION: clear to auscultation bilaterally Cardio: COMMON NORMALS: regular rate, regular rhythm, S1 normal heart sound present, S2 normal heart sound present, No gallops present (Cardio), No murmurs present (Cardio), No rub (Cardio) and Peripheral pulses 2+ throughout RATE: regular rate RHYTHM: regular rhythm HEART SOUNDS: S1 normal heart sound present and S2 normal heart sound present PERIPHERAL PULSES: Peripheral pulses 2+ throughout GI: COMMON NORMALS: Normal to inspection, nondistended, normoactive bowel sounds present, Soft to palpation, non-tender, No hepatosplenomegaly present and no masses AUSCULTATION: Yes normoactive bowel sounds PALPATION: Yes Soft to palpation and Yes No hepatosplenomegaly present RECTAL EXAM: deferred Extremity: OTHER: 1-2+ edema (R>L). No signs of chronic venous insufficiency. warm extremeties Neuro: COMMON NORMALS: patient oriented x3 Urinary Catheter Management^: Boswell: Cath Placed During This Visit: yes Reason for Continuing Indwelling Catheter: Accurate Measurement of Urinary Output in Critically Ill Patients Urinary Catheter Date of Insertion: 06/15/20 Urinary Catheter Time of Insertion: 19:50 Data : 06/19/20 03:25 06/19/20 03:25 Micro: Microbiology 06/18/20 10:00 Gram Stain - Final Sputum - Expectorated Sputum 06/16/20 08:35 Urine Culture - Final Urine,Clean Catch A&P Assessment and plan (1) Septic shock: -Likely secondary to acute hypoxic respiratory failure with evidence of multiorgan failure including acute renal injury, acute liver failure. Clinical suspicion for cardiogenic shock given concern for pericardial effusion, noted clinical evidence of acute CHF exacerbation -Noted resolved leukocytosis, continued pressor requirement, significant lactic acidosis trending down, continued oxygen requirement due to persistent hypoxia -daily labs -Is already on broad-spectrum IV antibiotics -CT A/P due to multi-organ involvement to r/o additional sources of infection with no noted acute abnormalities -blood cx prelim negative -UA indicative of infection; urine cx prelim negative -noted evidence of small to moderate pericardial effusion per bedside US, Echo and on CT A/P -supratherapeutic INR, noted oozing from R femoral central line, thrombocytopenia, worsening anemia; hold futher anticoagulation for now. Continue to trend coags Status: Acute (2) Respiratory failure with hypoxia: -[facility] hypoxia [facility] jail since COVID-19 infection, was on 3 L consistently -alternating between HHFNC and BiPAP use, decreasing oxygen requirement, low threshold for intubation -hemodynamically unstable; on pressor support, wean as tolerated -close monitoring of respiratory status and vital signs -rapid COVID-19 test negative. Recently treated for COVID-19 pneumonia requiring hospitalization -previously treated with antibiotics, has been on doxycycline and levaquin -noted PCN allergy, on empiric antibiotics (Vanc, Levaquin, Aztreonam) -blood cx: prelim negative -CXR with reported improvement in right pleural effusion, continued consolidation/pleural effusion on the left -Telemetry monitoring -afebrile, no leukocytosis, noted significant lactic acidosis with level of 7, trending down -Concern for severe sepsis as evidenced by hypoxia, tachypnea, hypotension, lactic acidosis -influenza, bacterial antigens, Legionella, MRSA negative -Boswell catheter placed for accurate Is & Os Status: Acute Qualifiers: Chronicity: acute on chronic Qualified Code(s): J96.21 - Acute and chronic respiratory failure with hypoxia (3) Shock liver: -noted significant increase in LFTs indicating acute liver failure -likely related to cardiogenic shock as noted above -has known large left hepatic lobe lesion; stable per repeat imaging -continue to trend LFTs; improving Status: Acute (4) Sepsis: -as noted above Status: Acute Qualifiers: Sepsis type: sepsis due to unspecified organism Sepsis acute organ dysfunction status: with acute organ dysfunction Severe sepsis acute organ dysfunction type: acute respiratory failure Acute respiratory failure type: with hypoxia Severe sepsis shock status: with septic shock Qualified Code(s): A41.9 - Sepsis, unspecified organism; R65.21 - Severe sepsis with septic shock; J96.01 - Acute respiratory failure with hypoxia (5) Acute kidney injury: -continued acute renal impairment -baseline Cr appears to be around 1.2-1.6 -off IV fluid hydration -Continue to monitor renal function, renally dose meds, avoid nephrotoxins -diuretics on hold due to renal impairment and hypotension -CPK wnl -nephrology consult appreciated -good urine output overnight; has Boswell catheter in place -UA with some proteinuria, blood Status: Acute (6) Acute exacerbation of CHF (congestive heart failure): -Chronic HFpEF; concern for acute exacerbation given BNP elevation (8909), LE edema part of which may be chronic -continue to hold diuretics for now due to hypotension and renal impairment. -repeat Echo: EF=55%, G2DD, small to moderate pericardial effusion but no tamponade physiology. Findings discussed with Dr. Ramsey -may need formal cardiology evaluation particularly if continued hemodynamic instability Status: Acute Qualifiers: Heart failure type: diastolic Qualified Code(s): I50.33 - Acute on chronic diastolic (congestive) heart failure (7) Elevated troponin: -noted elevated troponins with no significant delta x 2 hrs -this is likely type II due to demand ischemia secondary to severe sepsis -Echo (09/2019): EF=55%, no RWMA, biatrial enlargement, mild-moderate , mild TR. Repeat Echo noted above Status: Acute (8) Anemia: -baseline Hg is around 9 -continue to trend H/H; gradual drop and will need transfusion of blood products today with Hg down to 7 Status: Chronic Qualifiers: Anemia type: unspecified type Qualified Code(s): D64.9 - Anemia, unspecified (9) Aortic stenosis: -noted mild to moderate per last Echo (09/2019) Status: Chronic Qualifiers: Cardiac valve disease etiology: etiology unspecified Qualified Code(s): I35.0 - Nonrheumatic aortic (valve) stenosis (10) Hyperlipidemia: -on statin Status: Chronic Qualifiers: Hyperlipidemia type: unspecified Qualified Code(s): E78.5 - Hyperlipidemia, unspecified (11) Hypertension: -currently requiring pressor support; BP is improving -continue to hold oral antihypertensives Status: Chronic Qualifiers: Hypertension type: essential hypertension Qualified Code(s): I10 - Essential (primary) hypertension (12) Pulmonary embolism: -prior hx of PE, has been on AC with Eliquis -was on heparin drip; now on hold due to noted supratherapeutic INR, thrombocytopenia, worsening anemia, oozing from central line Status: Chronic Qualifiers: Pulmonary embolism type: unspecified Chronicity: chronic Acute cor pulmonale presence: unspecified Qualified Code(s): I27.82 - Chronic pulmonary embolism (13) Atrial fibrillation with RVR: -failed metoprolol, digoxin, on Cardizem drip currently with little change -no amiodarone right now due to deranged hepatic function -telemetry monitoring -cardiology evaluation tomorrow -continues to require pressor support Status: Acute Additional A&P Information -coagulopathy likely related to liver failure and shock; elevated D-dimer; could be secondary to shock, heparin drip on hold due to noted supratherapeutic INR. Venous duplex negative for DVT, unable to get CTA due to renal impairment. Coags are trending down. Did have an episode of epistaxis today, now resolved. Monitor for further bleeding -Hyperkalemia, resolved; had been on potassium supplementation. Continue to monitor -Morbid obesity: BMI-44 kg/m2 -hx of hypothyroidism; on levothyroxine -LE edema and ulcers; wound care as needed -thrombocytopenia; noted gradual drop in platelet count, continue to monitor, likely related to shock -hypoalbuminemia; would likely benefit from albumin but would wait with need for transfusion to prevent fluid overload. Albumin may help with hemodynamics -CLD for now due to possible need for intubation -GI ppx with PPI -DVT ppx with SCDs -Dispo: return to [facility] -Code status: FULL code; discussed with daughter in law at bedside and jail, paperwork in chart -continue ICU due to septic shock, high risk for decompensation with possible need for intubation, need for pressor support -guarded prognosis in light of evidence of multiorgan failure Attestations Medical Necessity Statement*: Patient needs to be in hospital for the management respiratory failure as well sepsis Coding Level of Care Code Acute Hydrant Setter for g Fwd Diagnoses Septic shock A41.9; R65.21 Respiratory failure with hypoxia J96.21 Chronicity: acute on chronic Shock liver K72.00 Sepsis A41.9; R65.21; J96.01 Sepsis type: sepsis due to unspecified organism Sepsis acute organ dysfunction status: with acute organ dysfunction Severe sepsis acute organ dysfunction type: acute respiratory failure Acute respiratory failure type: with hypoxia Severe sepsis shock status: with septic shock Acute kidney injury N17.9 Acute exacerbation of CHF (congestive heart failure) I50.33 Heart failure type: diastolic Elevated troponin R79.89 Anemia D64.9 Anemia type: unspecified type Aortic stenosis I35.0 Cardiac valve disease etiology: etiology unspecified Hyperlipidemia E78.5 Hyperlipidemia type: unspecified Hypertension I10 Hypertension type: essential hypertension Pulmonary embolism I27.82 Pulmonary embolism type: unspecified Chronicity: chronic Acute cor pulmonale presence: unspecified Atrial fibrillation with RVR I48.91
[2020-06-19 12:08] LABS: Glucose Point of Care 101 mg/dL (70-110)
[2020-06-19 12:45] LABS: Troponin(5th) Baseline 32 ng/L (0-10)
[2020-06-19 14:24] LABS: Troponin 5 2HR 31.09 ng/L (0-10)
[2020-06-19 14:25] LABS: Troponin 5 2HR Delta -0.91 ABS# (0-10)
[2020-06-19 18:11] LABS: ABG PCO2 58.8 mmHg (35-45); ABG PH Result 7.27 (7.35-7.45); Arterial Blood Gas Hematocrit 30.5 % (37-47); Base Excess ABG -0.9 mmol/L (-2.0-2.0); Blood Gas Allen Test Pos; Blood Gas Operator Identificat BD; Blood Gas Sample Site Brachial, right; Blood Gas Sample Type Arterial; Carboxyhemoglobin 1.9 %THgb (0.4-20.1); HCO3 ABG 26.7 mmol/L (22-26); HGB O2 Sat 95.7 % (95-100); Ionized Calcium Level - ABG 1.2 mmol/L (1.1-1.4); Oxygen Device OXY MASK; Oxygen Saturation ABG 98.5; Potassium Level - ABG 3.9 mmol/L (3.5-5.0)
[2020-06-19 18:13] LABS: Glucose Point of Care 99 mg/dL (70-110)
--- NOTE | 2020-06-19 18:24 | PC.NURSE ---
DR RANGEL, DR BENJAMIN, DR CABEZAS ROUNDED. PHYSICIANS VISITED WITH PT DAUGHTER IN LAW WITH ROUNDING. PT RESP EFFORT HAS BECOME MORE LABORED, SHE DENIES ANY PROBLEMS. NO SIGNIFICANT BLEEDING FROM NOSE TODAY. CONTINUES TO HAVE SMALL AMOUNTS OF BLOODY SPUTUM.
--- NOTE | 2020-06-19 18:25 | P.CONIM_ITS ---
Providers/Reason For Consult Consulting Physican/Specialty*: Pulmonary and critical care medicine Reason for Consult*: Acute hypoxic respiratory failure, pleural effusion Attending Physician: Kar Riggs MD Primary Care Provider: Kristian Rincon DO History of Present Illness History of Present Illness Krystal Andrews is a 74 year old female who presented to the hospital on June 15 with hypoxic respiratory failure. The patient was treated for COVID-19 pneumonia in mid May. Upon presentation, the patient was found to be in cardiogenic shock with multiorgan dysfunction. Her initial chest x-ray revealed large cardiac opacity and chronic left lower lobe atelectasis with mild pleural effusion. An echocardiogram revealed moderate pericardial effusion loculated more along the left ventricular free wall. No tamponade physiology was found on the echocardiogram. On this echocardiogram, the patient had an ejection fraction of 55% with grade 2 diastolic dysfunction. The patient had another echocardiogram in September 2019 which revealed an ejection fraction of 55% with mildly dilated right ventricle. There is mild to moderate aortic valve stenosis. There was no pericardial effusion at this time and there was no comment on diastolic function. The patient improved with antibiotic, diuretics and vasopressor support. Currently the patient is off of norepinephrine. Her acute kidney injury, metabolic acidosis and hyperkalemia has also improved. I was asked to evaluate the patient today for tachypnea, hypoxia and left-sided pleural effusion. The patient had a CT of the chest today. There was a large pericardial effusion measuring 30 mm in thickness. There was also evidence of interstitial edema. The patient has bilateral pleural effusion. There is evidence of subsegmental left lower lobe atelectasis. The patient is afebrile with normal leukocyte co unt. All microbiologic studies have been negative. The patient was seen and examined. She appeared comfortable laying in bed however tachypneic. A bedside ultrasound revealed small left-sided pleural effusion and areas of atelectasis. There is persistent pericardial effusion. The patient has very dilated inferior vena cava. Review of Systems Narrative: Unable to obtain detailed review of system due to clinical condition. Meds/Allergies Home Medications and Allergies Home Medications Medication Instructions Recorded Confirmed Last Taken Type aspirin 81 mg PO DAILY 09/21/19 06/15/20 06/15/20 History levothyroxine 225 mcg PO DAILY 09/21/19 06/15/20 06/15/20 History Eliquis 2.5 mg PO BID #30 tab 10/02/19 06/15/20 06/15/20 Rx atorvastatin 40 mg PO BEDTIME #30 tab 10/02/19 06/15/20 06/14/20 Rx folic acid 1 mg PO DAILY #30 tab 10/02/19 06/15/20 06/15/20 Rx metoprolol tartrate 100 mg PO BID #120 tab 10/02/19 06/15/20 06/15/20 Rx pantoprazole 40 mg PO BID #60 tab 10/02/19 06/15/20 06/15/20 Rx sennosides-docusate sodium 2 tab PO BID #60 tab 10/02/19 06/15/20 06/15/20 Rx budesonide 2 inh INHALATION Q12H #1 each 06/01/20 06/15/20 06/15/20 Rx acetaminophen [Tylenol] 350 mg PO DAILY 06/15/20 06/15/20 06/15/20 History bisacodyl 10 mg OK DAILY PRN 06/15/20 06/15/20 Unknown History cyanocobalamin (vitamin B-12) 1,000 mcg SUBCUT Q30D 06/15/20 06/15/20 Unknown History eucalyptus oil-menthol [Cough 8 mg MUCOUS MEMBRANE Q2H PRN 06/15/20 06/15/20 Unknown History Drops (with eucalyptus)] furosemide [Lasix] 80 mg PO DAILY 06/15/20 06/15/20 06/15/20 History levofloxacin 500 mg PO DAILY 06/15/20 06/15/20 06/15/20 History magnesium hydroxide [Milk of 400 mg PO DAILY PRN 06/15/20 06/15/20 Unknown History Magnesia] ondansetron HCl [Zofran] 4 mg PO Q6H 06/15/20 06/15/20 06/15/20 History potassium chloride 20 meq PO DAILY 06/15/20 06/15/20 06/15/20 History sodium phosphates [Fleet Enema] 118 ml OK DAILY PRN 06/15/20 06/15/20 Unknown History verapamil 120 mg PO DAILY 06/15/20 06/15/20 06/15/20 History Allergies Allergy/AdvReac Type Severity Reaction Status Date / Time Penicillins Allergy ALGY-Hives Verified 06/15/20 13:47 Current Medications Current Medications Generic Name Dose Route Start Last Admin Trade Name Freq PRN Reason Stop Dose Admin Aspirin 81 mg 06/16/20 09:00 06/16/20 09:09 Aspirin Chewable PO 81 mg DAILY KAROLINA Administration Atorvastatin Calcium 40 mg 06/15/20 21:00 06/18/20 21:21 Lipitor PO 40 mg BEDTIME KAROLINA Administration Dextrose 25 ml 06/15/20 22:42 06/15/20 23:03 D50w IVP 25 ml ONCE PRN Administration hypoglycemia protocol Protocol Folic Acid 1 mg 06/16/20 09:00 06/19/20 08:42 Folic Acid PO 1 mg DAILY KAROLINA Administration Heparin Sodium (Beef Lung) 0 unit 06/15/20 19:17 06/15/20 22:51 Heparin IV 6,500 unit PRN PRN Administration Heparin weight-base protocol Protocol Vancomycin HCl 1,500 mg/ 250 mls @ 166.667 mls/hr 06/15/20 20:00 06/17/20 22:06 Sodium Chloride IV Infused Q48H KAROLINA Infusion Protocol Heparin Sodium/Sodium Chloride 25,000 unit in 500 mls @ 0 mls/hr 06/15/20 19:30 06/17/20 09:00 Heparin Drip IV 0 unit/kg/hr .Q0M KAROLINA 0 mls/hr Titration Protocol Per Protocol Diltiazem HCl 125 mg/ Sodium 125 mls @ 0 mls/hr 06/16/20 20:45 06/18/20 21:51 Chloride IV 0 mg/hr .Q0M KAROLINA 0 mls/hr Titration Protocol Per Protocol Norepinephrine Bitartrate 4 mg 254 mls @ 0 mls/hr 06/17/20 17:15 06/19/20 07:00 / Dextrose IV 0 mcg/min .Q0M KAROLINA 0 mls/hr Titration Protocol Per Protocol Imipenem/Cilastatin Sodium 250 100 mls @ 200 mls/hr 06/18/20 21:30 06/19/20 16:40 mg/ Sodium Chloride IV Infused Q6H KAROLINA Infusion Amiodarone HCl 900 mg/ 518 mls @ 34.533 mls/hr 06/19/20 08:30 06/19/20 08:00 Dextrose/ IV Miscellaneous IV 1 mg/min Supplies .Q15H1M KAROLINA 34.5 mls/hr Administration Protocol 1 MG/MIN Levothyroxine Sodium 225 mcg 06/16/20 09:00 06/19/20 08:42 Synthroid PO 225 mcg DAILY KAROLINA Administration Lorazepam 1 mg 06/15/20 20:52 06/19/20 09:35 Ativan IVP 1 mg Q6H PRN Administration ANXIETY Metoprolol Tartrate 2.5 mg 06/16/20 16:53 06/18/20 17:40 Metoprolol Tartrate IV 2.5 mg Q4H PRN Administration HEART RATE-HIGH Pantoprazole Sodium 40 mg 06/17/20 08:00 06/19/20 08:43 Protonix IVP 40 mg Q12H KAROLINA Administration PFSH Acute PFSH: Medical History Acute kidney injury Anemia Aortic stenosis Atrial fibrillation and flutter Chronic kidney disease, stage II (mild) CKD (chronic kidney disease) CVA (cerebral vascular accident) DJD (degenerative joint disease) GERD (gastroesophageal reflux disease) Hyperlipidemia Hypertension Hypothyroidism Obesity Pneumonia due to COVID-19 virus Pulmonary embolism Respiratory failure with hypoxia UTI (urinary tract infection) Surgical History History of cholecystectomy History of hernia repair History of tubal ligation Family History Other CAD (coronary artery disease) Social History Smoking and tobacco status: never smoked Alcohol intake: never Housing: [employer] Current occupational status: retired Vitals/I&O/Wt Last Vital Signs Temp 98.4 F 06/19/20 10:00 Pulse 106 H 06/19/20 18:11 Resp 34 H 06/19/20 18:11 BP 129/81 06/19/20 18:11 Pulse Ox 99 06/19/20 18:11 06/19/20 06/19/20 06/19/20 06:59 14:59 22:59 Intake Total 624.016 / 2332.943 658.677 / 658.677 340 / 998.677 Output Total 350 / 1650 175 / 175 500 / 675 Balance 274.016 / 682.943 483.677 / 483.677 -160 / 323.677 Physical Exam Narrative: EXAM NARRATIVE: General: Patient is awake alert, in no acute distress but tachypneic Neck: No JVD, no cervical or supraclavicular lymphadenopathy. Respiratory: Auscultation: Reduced breath sound bilaterally, crackles at both lung bases Cardiovascular: Distant heart sound, variable first heart sound, no murmur Abdomen: Soft, nontender, distended from obesity, positive bowel sound Skin: Bilateral lower extremity edema Neuro: Patient is able to follow commands and answer simple questions, no gross motor abnormalities Urinary Catheter Management^: Boswell: Cath Placed During This Visit: yes Reason for Continuing Indwelling Catheter: Accurate Measurement of Urinary Output in Critically Ill Patients Urinary Catheter Date of Insertion: 06/15/20 Urinary Catheter Time of Insertion: 19:50 Data Micro: Micro: Microbiology 06/18/20 10:00 Gram Stain - Final Sputum - Expector ated Sputum Sputum Culture - P reliminary Other Data: Attestation for Other Data: I personally reviewed and interpreted the following: Other data: I have reviewed the patient's laboratory, microbiologic and radiologic data. The patient has stable thrombocytopenia and is currently not on any anticoagulation. The PIETER is getting better. There is no evidence of metabolic acidosis. A&P Assessment and plan (1) Respiratory failure with hypoxia: The patient has acute hypoxic respiratory failure requiring oxygen supplementation. There are multiple etiologies for this patient's hypoxic respiratory failure. The patient has evidence of pulmonary edema. Likely secondary to acute exacerbation of heart failure with preserved ejection fraction. There is evidence of left lower lobe atelectasis. There is also bilateral small pleural effusion likely secondary to heart failure as well. There is no definitive evidence of pneumonia. There is no consolidation. The hypoxia is likely secondary to VQ mismatch and shunting. The patient would benefit from diuresis. I am going to give the patient 2 mg of Bumex IV. The goal is to have her a liter negative. If necessary, she can be supported with CPAP or BiPAP. The patient does have a large pericardial effusion. The etiology of this is unclear at this time. According to echocardiogram there is no echocardiographic evidence of cardiac tamponade. However, it would be prudent to keep an eye on the pericardial effusion and possibly drain if necessary. The patient might require some pressor support with diuresis. She will benefit from chest physical therapy. The patient most likely has mucus impaction in the left lower lobe subsegmental airways. The chest PT will help opening up this lung segments. The patient needs to do incentive spirometry. Hopefully once the heart rate is controlled, she can get out of bed and participate in physical therapy. The patient should undergo chest physical therapy with vest and have DuoNeb and Mucomyst. The DuoNeb needs to be given first before giving nebulized Mucomyst as this can cause bronchoconstriction. The patient is receiving broad-spectrum antibiotic. There is no evidence of any MRSA infection. The patient has thrombocytopenia. It is difficult to say if this is secondary to the systemic process or whether the patient has a component of heparin- induced thrombocytopenia. Currently the patient is off of heparin. Her coagulopathy has also resolved. The patient will benefit from DVT prophylaxis. DVT prophylactic dose fondaparinux can be used and it work-up for heparin- induced thrombocytopenia can be performed if the 4 T score is high. There is no indication for immediate drainage of the pleural fluid. There was no complexity on the ultrasound and there is no suspicion for empyema. Status: Acute Qualifiers: Chronicity: acute on chronic Qualified Code(s): J96.21 - Acute and chronic respiratory failure with hypoxia (2) Acute exacerbation of CHF (congestive heart failure): The patient likely has heart failure with preserved ejection fraction. Currently she is undergoing diuresis. Status: Acute Qualifiers: Heart failure type: diastolic Qualified Code(s): I50.33 - Acute on chronic diastolic (congestive) heart failure (3) Atrial fibrillation with RVR: And is on amiodarone for A. fib. This is likely also contributing to her worsening heart failure. A. fib in the setting of diastolic dysfunction is likely reducing her stroke-volume significantly. Status: Acute (4) Acute kidney injury: The PIETER is improving. There is no evidence of metabolic acidosis at this point. Status: Acute (5) Pericardial effusion without cardiac tamponade: There is no echocardiographic evidence of cardiac tamponade. The cardiology team is keeping an eye on it. Thank you for the consultation. Status: Acute Coding Level of Care Code Acute Medical Office Receptionist Assistant for Belinda Ty Diagnoses Respiratory failure with hypoxia J96.21 Chronicity: acute on chronic Acute exacerbation of CHF (congestive heart failure) I50.33 Heart failure type: diastolic Atrial fibrillation with RVR I48.91 Acute kidney injury N17.9 Pericardial effusion without cardiac tamponade I31.3
[2020-06-19] MEDS: bumetanide 0.25 mg/mL SDV 10 mL 2 MG IV (18:48)
--- NOTE | 2020-06-19 19:26 | P.PN_ITS ---
Subjective Subjective: Interval history: She was taken off cardizem drip and levophed. She is currently on amiodarone gtt but she did not receive amiodarone bolus Medications: Reviewed: Yes Medication Review Details: Current Medications Acetaminophen (Tylenol) 650 mg PO Q6H PRN PRN Reason: MILD PAIN Acetaminophen (Tylenol) [address] Q6H PRN PRN Reason: FEVER Albuterol Sulfate (Ventolin) 2 puff INHALATION Q4H.RESPIRATORY PRN PRN Reason: SHORTNESS OF BREATH Aspirin (Aspirin Chewable) 81 mg PO DAILY [facility] Last Admin: 06/16/20 09:09 Dose: 81 mg Documented by: Atorvastatin Calcium (Lipitor) 40 mg PO BEDTIME KAROLINA Last Admin: 06/18/20 21:21 Dose: 40 mg Documented by: Bisacodyl (Bisac-Evac) [address] DAILY PRN PRN Reason: Constipation Dextrose (D50w) 25 ml IVP ONCE PRN; Protocol PRN Reason: hypoglycemia protocol Last Admin: 06/15/20 23:03 Dose: 25 ml Documented by: Dextrose (D50w) 50 ml IVP PRN PRN; Protocol PRN Reason: hypoglycemia protocol Folic Acid (Folic Acid) 1 mg PO DAILY [facility] Last Admin: 06/19/20 08:42 Dose: 1 mg Documented by: Glucagon (Glucagen) 1 mg IM ONCE PRN; Protocol PRN Reason: Adult Acute Hypoglycemia Prot. Heparin Sodium (Beef Lung) (Heparin) 0 unit IV PRN PRN; Protocol PRN Reason: Heparin weight-base protocol Last Admin: 06/15/20 22:51 Dose: 6,500 unit Documented by: Vancomycin HCl 1,500 mg/ (Sodium Chloride) 250 mls @ 166.667 mls/hr IV Q48H [facility]; Protocol Last Infusion: 06/17/20 22:06 Dose: Infused Documented by: Heparin Sodium/Sodium Chloride (Heparin Drip) 25,000 unit in 500 mls @ 0 mls/hr IV .Q0M KAROLINA; Protocol Last Titration: 06/17/20 09:00 Dose: 0 unit/kg/hr, 0 mls/hr Documented by: Dextrose (D5w) 500 mls @ 100 mls/hr IV ONCE PRN; Protocol PRN Reason: Adult Acute Hypoglycemia Prot Norepinephrine Bitartrate 4 mg (/ Dextrose) 254 mls @ 0 mls/hr IV .Q0M [facility]; Protocol Last Titration: 06/19/20 07:00 Dose: 0 mcg/min, 0 mls/hr Documented by: Imipenem/Cilastatin Sodium 250 (mg/ Sodium Chloride) 100 mls @ 200 mls/hr IV Q6H [facility] Last Infusion: 06/19/20 16:40 Dose: Infused Documented by: Amiodarone HCl 900 mg/Dextrose/ IV Miscellaneous Supplies 518 mls @ 34.533 mls/hr IV .Q15H1M [facility]; Protocol Last Admin: 06/19/20 08:00 Dose: 1 mg/min, 34.5 mls/hr Documented by: Levothyroxine Sodium (Synthroid) 225 mcg PO DAILY [facility] Last Admin: 06/19/20 08:42 Dose: 225 mcg Documented by: Ondansetron HCl (Zofran) 4 mg IVP Q6H PRN PRN Reason: NAUSEA AND VOMITING Pantoprazole Sodium (Protonix) 40 mg IVP Q12H [facility] Last Admin: 06/19/20 08:43 Dose: 40 mg Documented by: Vitals/I&O/Wt Last Vital Signs Temp 98.4 F 06/19/20 10:00 Pulse 106 H 06/19/20 18:11 Resp 34 H 06/19/20 18:11 BP 129/81 06/19/20 18:11 Pulse Ox 99 06/19/20 18:11 06/19/20 06/19/20 06/19/20 06:59 14:59 22:59 Intake Total 624.016 / 2332.943 658.677 / 658.677 340 / 998.677 Output Total 350 / 1650 175 / 175 500 / 675 Balance 274.016 / 682.943 483.677 / 483.677 -160 / 323.677 Physical Exam Narrative: EXAM NARRATIVE: GENERAL:obese lady sitting propped up in bed in mild respiratory distress; currently on 4 L of O2 HEENT: Pupils equal round reactive to light. Mild pallor or icterus. NECK: JVD not appreciated, No carotid bruit. CARDIOVASCULAR SYSTEM: S1-S2 irregular. tachycardia+ ;No murmur rubs or gallops. RESPIRATORY SYSTEM: Chest clear to auscultation anteriorly. Decreased breath sounds on left side No wheezes rhonchi or rubs heard. ABDOMEN: Soft, nontender and nondistended. Normal bowel sounds present. EXTREMITIES: No cyanosis or clubbing. 1-2+ edema (R>L). No signs of chronic venous insufficiency. warm extremeties INSIDE SALES ADVISOR: Patient is alert oriented ?3. No focal neurological deficits. SKIN: Normal turgor and temperature. left leg erythema+, discharge+ Urinary Catheter Management^: Boswell: Cath Placed During This Visit: yes Reason for Continuing Indwelling Catheter: Accurate Measurement of Urinary Output in Critically Ill Patients Urinary Catheter Date of Insertion: 06/15/20 Urinary Catheter Time of Insertion: 19:50 Data : 06/19/20 03:25 06/19/20 03:25 Micro: Microbiology 06/18/20 10:00 Gram Stain - Final Sputum - Expectorated Sputum Sputum Culture - Preliminary A&P Assessment and plan (1) Hypotension: Hypotension likely a mix of A. fib with RVR and medication induced. -No source of sepsis identified. Since starting of Cardizem drip patient was weaned off of Levophed. -She is maintaining her MAP more than 65 mmHg. Status: Acute Qualifiers: Hypotension type: unspecified hypotension type Qualified Code(s): I95.9 - Hypotension, unspecified (2) Atrial fibrillation with RVR: Patient is off cardizem drip, PRN metoprolol 2.5 mg IV and heparin gtt (held d/t drop in H&H). -She has a history of chronic anemia requiring intermittent blood transfusion with negative prior work-up. -Consider restarting heparin drip if H&H remains stable. Status: Acute (3) Acute exacerbation of CHF (congestive heart failure): Agree with administering Bumex today. Status: Acute Qualifiers: Heart failure type: diastolic Qualified Code(s): I50.33 - Acute on chronic diastolic (congestive) heart failure (4) Pericardial effusion without cardiac tamponade: Repeat echo done bedside showed Moderate to large circumferential pericardial effusion. -No evidence of tamponade physiology presently. -will avoid agressive diuresis. -May consider tap given size of effusion. I discussed her case with Dr. Ureña in detail and decision was made to hold off on tap presently. I had a long discussion with the patient's daughter Constance and updated her of patient's current status. All her questions were appropriately answered and decision to hold off on pericardiocentesis was conveyed to the patient. Status: Acute (5) Respiratory failure with hypoxia: On empiric antibiotics. Status: Acute Qualifiers: Chronicity: acute on chronic Qualified Code(s): J96.21 - Acute and chronic respiratory failure with hypoxia (6) Shock liver: liver enzymes improving Status: Acute (7) Elevated troponin: Status: Acute Additional A&P Information PIETER: renal function improving, nephrology on board Left pleural effusion Anemia: recieved 2 units of pRBC Thank you for allowing me to participate in patient's care. Please feel free to call with questions or concerns Attestations Medical Necessity Statement*: As per primary team Coding Level of Care Code Acute Screw Machine Operator for g Fwd Diagnoses Hypotension I95.9 Hypotension type: unspecified hypotension type Atrial fibrillation with RVR I48.91 Acute exacerbation of CHF (congestive heart failure) I50.33 Heart failure type: diastolic Pericardial effusion without cardiac tamponade I31.3 Respiratory failure with hypoxia J96.21 Chronicity: acute on chronic Shock liver K72.00 Elevated troponin R79.89 Time Spent (min) 30
[2020-06-19] MEDS: atorvastatin 40 mg Tablet PO (20:16)
[2020-06-19 20:32] LABS: Glucose Point of Care 97 mg/dL (70-110)
[2020-06-19] MEDS: acetaminophen 325 mg Tablet 650 MG PO (21:02)
--- NOTE | 2020-06-19 21:30 | PC.NURSE ---
MD Roxy gave a v/o to nonadmin the Amiodarone Bolus based on findings of bolus being given on a prior order.
[2020-06-19] MEDS: ipratropium-albuterol 3 mL Neb INHALATION (23:20)
[2020-06-19] MEDS: acetylcysteine 200 mg/mL SDV 4 mL 100 MG INHALATION (23:20)
[2020-06-20] VITALS (42 sets, daily range): BP systolic 88–148; BP diastolic 43–100; PULSE 82–124; RESP 18–40; TEMP 36.7–36.9; O2SAT 88–100
--- NOTE | 2020-06-20 01:42 | PC.NURSE ---
Amio running at 1mg/min during shift change. Titration to 0.5mg/min on 06/20 @ 0130 based on protocol.
[2020-06-20 05:19] LABS: ABG PCO2 49.7 mmHg (35-45); ABG PH Result 7.35 (7.35-7.45); Arterial Blood Gas Hematocrit 28.2 % (37-47); Base Excess ABG 1.3 mmol/L (-2.0-2.0); Blood Gas Allen Test Pos; Blood Gas Operator Identificat JB; Blood Gas Sample Site Radial, right; Blood Gas Sample Type Arterial; HCO3 ABG 27.3 mmol/L (22-26); Oxygen Device BIPAP
[2020-06-20 05:53] LABS: Basophils % 0.2 %; Eosinophils # 0.1 10^3/uL (0.0-0.8); Eosinophils % 2.1 %; Hematocrit 30.8 % (37.0-47.0); Hemoglobin 8.5 g/dL (11.5-15.3); Lymphocytes # 0.4 10^3/uL (0.8-4.8); Lymphocytes % 9.6 %; Mean Corpuscular HGB Conc 27.6 g/dL (30.0-36.0); Mean Corpuscular Hemoglobin 25.8 pg (28.0-34.0); Mean Corpuscular Volume 93.6 fL (81-99); Monocytes # 0.3 10^3/uL (0.2-0.9); Monocytes % 7.7 %; Neutrophils # 3.43 10^3/uL (1.8-7.7); Neutrophils % 80.2 %; Nucleated Red Blood Cells % 0 %; Platelet Count 67 10^3/cmm (130-400); Red Blood Count 3.29 10^6/uL (4.1-5.3); Red Cell Distribution Width 19.1 % (12.1-15.1); White Blood Count 4.3 10^3/uL (4.0-10.0)
[2020-06-20 06:16] LABS: Alanine Aminotransferase 602 U/L (0-33); Albumin Level 2.5 g/dL (3.5-5.2); Alkaline Phosphatase 174 IU/L (35-105); Anion Gap 11.8 (5-19); Aspartate Amino Transferase 102 U/L (0-32); Blood Urea Nitrogen 41 mg/dL (8-23); Calcium 8.1 mg/dL (8.5-10.5); Carbon Dioxide 27 mmol/L (22-29); Chloride 108 mmol/L (98-107); Globulin 2.9 g/dL (1.3-4.6); Glucose 85 mg/dL (65-115); Magnesium 1.7 mg/dL (1.7-2.3); Osmolality Calculated 305 mOsm/kg (285-295); Phosphorus 3.3 mg/dL (2.5-4.5); Potassium 3.8 mmol/L (3.5-5.1); Sodium 143 mmol/L (136-145); Total Bilirubin 0.9 mg/dL (0.15-1.2); Total Protein 5.4 g/dL (6.6-8.7)
--- NOTE | 2020-06-20 07:15 | PM.PN ---
Subjective Subjective: Interval history: Less sob. remains on bipap. HR improving. swollen. Medications: Reviewed: Yes Medication Review Details: Current Medications Acetaminophen (Acetaminophen 325 Mg Tablet) 650 mg PO Q6H PRN PRN Reason: MILD PAIN Last Admin: 06/19/20 21:02 Dose: 650 mg Documented by: Acetaminophen (Tylenol) 650 mg TN Q6H PRN PRN Reason: FEVER Acetylcysteine (Acetylcysteine 200 Mg/Ml Sdv 4 Ml) 100 mg INHALATION TID [facility] Albuterol Sulfate (Ventolin) 2 puff INHALATION Q4H.RESPIRATORY PRN PRN Reason: SHORTNESS OF BREATH Albuterol/Ipratropium (Ipratropium-Albuterol 3 Ml Neb) 3 ml INHALATION TID [facility] Aspirin (Aspirin Chewable) 81 mg PO DAILY [facility] Last Admin: 06/16/20 09:09 Dose: 81 mg Documented by: Atorvastatin Calcium (Lipitor) 40 mg PO BEDTIME [facility] Last Admin: 06/19/20 20:16 Dose: 40 mg Documented by: Bisacodyl (Bisac-Evac) 10 mg TN DAILY PRN PRN Reason: Constipation Dextrose (D50w) 25 ml IVP ONCE PRN; Protocol PRN Reason: hypoglycemia protocol Last Admin: 06/15/20 23:03 Dose: 25 ml Documented by: Dextrose (D50w) 50 ml IVP PRN PRN; Protocol PRN Reason: hypoglycemia protocol Digoxin (Digoxin 250 Mcg/Ml Inj 2 Ml) 125 mcg IVP DAILY [facility] Folic Acid (Folic Acid) 1 mg PO DAILY [facility] Last Admin: 06/19/20 08:42 Dose: 1 mg Documented by: Glucagon (Glucagen) 1 mg IM ONCE PRN; Protocol PRN Reason: Adult Acute Hypoglycemia Prot. Vancomycin HCl 1,500 mg/ (Sodium Chloride) 250 mls @ 166.667 mls/hr IV Q48H [facility]; Protocol Last Infusion: 06/19/20 22:51 Dose: Infused Documented by: Dextrose (D5w) 500 mls @ 100 mls/hr IV ONCE PRN; Protocol PRN Reason: Adult Acute Hypoglycemia Prot Norepinephrine Bitartrate 4 mg (/ Dextrose) 254 mls @ 0 mls/hr IV .Q0M [facility]; Protocol Last Titration: 06/19/20 07:00 Dose: 0 mcg/min, 0 mls/hr Documented by: Imipenem/Cilastatin Sodium 250 (mg/ Sodium Chloride) 100 mls @ 200 mls/hr IV Q6H [facility] Last Admin: 06/20/20 04:02 Dose: 200 mls/hr Documented by: Amiodarone HCl 900 mg/Dextrose/ IV Miscellaneous Supplies 518 mls @ 34.533 mls/hr IV .Q15H1M [facility]; Protocol Last Titration: 06/20/20 01:30 Dose: Infused Documented by: Levothyroxine Sodium (Synthroid) 225 mcg PO DAILY [facility] Last Admin: 06/19/20 08:42 Dose: 225 mcg Documented by: Ondansetron HCl (Zofran) 4 mg IVP Q6H PRN PRN Reason: NAUSEA AND VOMITING Pantoprazole Sodium (Protonix) 40 mg IVP Q12H [facility] Last Admin: 06/19/20 20:16 Dose: 40 mg Documented by: Vitals/I&O/Wt Last Vital Signs Temp 98.5 F 06/20/20 02:18 Pulse 98 06/20/20 05:58 Resp 21 H 06/20/20 04:36 BP 91/59 06/20/20 04:36 Pulse Ox 98 06/20/20 05:58 06/19/20 06/20/20 06/20/20 22:59 06:59 14:59 Intake Total 1140 / 1798.677 518 / 2316.677 Output Total 500 / 675 1050 / 1725 Balance 640 / 1123.677 -532 / 591.677 Physical Exam Narrative: EXAM NARRATIVE: elderly lady on BiPAP- lessSOB in bed, off levo. on amiodarone heent- nc/at, eomi, anicteric neck no jvp lung dull bases and crackles heart- irreg irreg, tachycardia improving abd soft, nt, nd, +BS ext b/l edema neuro- a,a, o x1-22 + morrison Urinary Catheter Management^: Morrison: Cath Placed During This Visit: yes Reason for Continuing Indwelling Catheter: Accurate Measurement of Urinary Output in Critically Ill Patients Urinary Catheter Date of Insertion: 06/15/20 Urinary Catheter Time of Insertion: 19:50 Data : 06/20/20 03:50 06/20/20 03:50 Micro: Microbiology 06/18/20 10:00 Gram Stain - Final Sputum - Expectorated Sputum Sputum Culture - Preliminary A&P Additional A&P Information 74 yr old female shock -likely combined cardiogenic and septic -no clear infectious source. On vanco, aztreonam, and levaquin. Leukocytosis has improved. FOLLOW VANCO LEVELS- KEEP TROUGH UNDER 19 2. Acute kidney injury due to hypotension, dec CO. lft's and CR are improving -pt needs BP support and HR control to improve CO and renal perfusion. 3. CKD stage 3- Serum Cr 1.4 mg/dL at last hospital discharge 4. anemia, thrombocytopenia- iron sat high at 53% [place] [address] -await ldh, retic, haptoglobin, spep -monitor hgb after prbc tx pt had a high INR- is improving 5. Lactic acidosis resolved, serum bicarbonate now normal 6. pericardial effusion and a fib w/ RVR per cardiology - agree w/ pericardiocentesis -diuresis per cardiology -monitro dig level 7. Transaminitis improviing Attestations Medical Necessity Statement*: a fib w/ RVR, pericardial effusion, pleural effusions. PIETER improving Time Spent in Patient Care: 16 - 35 minutes Coding Level of Care Code Acute Screen Printing Supervisor for Chg Karson
[2020-06-20 07:38] LABS: Glucose Point of Care 95 mg/dL (70-110)
[2020-06-20] MEDS: acetylcysteine 200 mg/mL SDV 4 mL 100 MG INHALATION ×3 (08:40→20:08)
[2020-06-20] MEDS: ipratropium-albuterol 3 mL Neb INHALATION ×3 (08:41→20:08)
[2020-06-20] MEDS: digoxin 250 mcg/ml INJ 2 mL 125 MCG IVP (09:34)
[2020-06-20] MEDS: pantoprazole 40 mg SDV IVP ×2 (09:34→19:36)
[2020-06-20] MEDS: levothyroxine 150 mcg Tablet 225 MCG PO (09:35)
[2020-06-20] MEDS: folic acid 1 mg Tablet PO (09:35)
[2020-06-20 10:24] LABS: PROTEIN, TOTAL 5.5 g/dL (6.1-8.1)
--- NOTE | 2020-06-20 10:38 | PM.PN ---
Subjective Subjective: Interval history: She was taken off cardizem drip and levophed. She is currently on amiodarone gtt . HR improved running 90's-120's. Medications: Reviewed: Yes Medication Review Details: Current Medications Acetaminophen (Tylenol) 650 mg PO Q6H PRN PRN Reason: MILD PAIN Acetaminophen (Tylenol) 650 mg KS Q6H PRN PRN Reason: FEVER Albuterol Sulfate (Ventolin) 2 puff INHALATION Q4H.RESPIRATORY PRN PRN Reason: SHORTNESS OF BREATH Aspirin (Aspirin Chewable) 81 mg PO DAILY [facility] Last Admin: 06/16/20 09:09 Dose: 81 mg Documented by: Atorvastatin Calcium (Lipitor) 40 mg PO BEDTIME [facility] Last Admin: 06/18/20 21:21 Dose: 40 mg Documented by: Bisacodyl (Bisac-Evac) 10 mg KS DAILY PRN PRN Reason: Constipation Dextrose (D50w) 25 ml IVP ONCE PRN; Protocol PRN Reason: hypoglycemia protocol Last Admin: 06/15/20 23:03 Dose: 25 ml Documented by: Dextrose (D50w) 50 ml IVP PRN PRN; Protocol PRN Reason: hypoglycemia protocol Folic Acid (Folic Acid) 1 mg PO DAILY [facility] Last Admin: 06/19/20 08:42 Dose: 1 mg Documented by: Glucagon (Glucagen) 1 mg IM ONCE PRN; Protocol PRN Reason: Adult Acute Hypoglycemia Prot. Heparin Sodium (Beef Lung) (Heparin) 0 unit IV PRN PRN; Protocol PRN Reason: Heparin weight-base protocol Last Admin: 06/15/20 22:51 Dose: 6,500 unit Documented by: Vancomycin HCl 1,500 mg/ (Sodium Chloride) 250 mls @ 166.667 mls/hr IV Q48H [facility]; Protocol Last Infusion: 06/17/20 22:06 Dose: Infused Documented by: Heparin Sodium/Sodium Chloride (Heparin Drip) 25,000 unit in 500 mls @ 0 mls/hr IV .Q0M [facility]; Protocol Last Titration: 06/17/20 09:00 Dose: 0 unit/kg/hr, 0 mls/hr Documented by: Dextrose (D5w) 500 mls @ 100 mls/hr IV ONCE PRN; Protocol PRN Reason: Adult Acute Hypoglycemia Prot Norepinephrine Bitartrate 4 mg (/ Dextrose) 254 mls @ 0 mls/hr IV .Q0M [facility]; Protocol Last Titration: 06/19/20 07:00 Dose: 0 mcg/min, 0 mls/hr Documented by: Imipenem/Cilastatin Sodium 250 (mg/ Sodium Chloride) 100 mls @ 200 mls/hr IV Q6H [facility] Last Infusion: 06/19/20 16:40 Dose: Infused Documented by: Amiodarone HCl 900 mg/Dextrose/ IV Miscellaneous Supplies 518 mls @ 34.533 mls/hr IV .Q15H1M [facility]; Protocol Last Admin: 06/19/20 08:00 Dose: 1 mg/min, 34.5 mls/hr Documented by: Levothyroxine Sodium (Synthroid) 225 mcg PO DAILY [facility] Last Admin: 06/19/20 08:42 Dose: 225 mcg Documented by: Ondansetron HCl (Zofran) 4 mg IVP Q6H PRN PRN Reason: NAUSEA AND VOMITING Pantoprazole Sodium (Protonix) 40 mg IVP Q12H [facility] Last Admin: 06/19/20 08:43 Dose: 40 mg Documented by: Vitals/I&O/Wt Last Vital Signs Temp 98.1 F 06/20/20 07:00 Pulse 86 06/20/20 08:41 Resp 20 H 06/20/20 08:37 BP 114/69 06/20/20 08:00 Pulse Ox 100 06/20/20 08:37 06/19/20 06/20/20 06/20/20 22:59 06:59 14:59 Intake Total 1140 / 1798.677 618 / 2416.677 100 / 100 Output Total 500 / 675 1050 / 1725 Balance 640 / 1123.677 -432 / 691.677 100 / 100 Physical Exam Narrative: EXAM NARRATIVE: GENERAL:obese lady sitting propped up in bed in mild respiratory distress; currently on 4 L of O2 HEENT: Pupils equal round reactive to light. Mild pallor or icterus. NECK: JVD not appreciated, No carotid bruit. CARDIOVASCULAR SYSTEM: S1-S2 irregular. tachycardia+ ;No murmur rubs or gallops. RESPIRATORY SYSTEM: Chest clear to auscultation anteriorly. Decreased breath sounds on left side No wheezes rhonchi or rubs heard. ABDOMEN: Soft, nontender and nondistended. Normal bowel sounds present. EXTREMITIES: No cyanosis or clubbing. trace-1+ edema (R>L). No signs of chronic venous insufficiency. 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 SKIN: Normal turgor and temperature. left leg erythema+ Urinary Catheter Management^: Boswell: Cath Placed During This Visit: yes Reason for Continuing Indwelling Catheter: Accurate Measurement of Urinary Output in Critically Ill Patients Urinary Catheter Date of Insertion: 06/15/20 Urinary Catheter Time of Insertion: 19:50 Data : 06/20/20 03:50 06/20/20 03:50 Micro: Microbiology 06/18/20 10:00 Gram Stain - Final Sputum - Expectorated Sputum Sputum Culture - Preliminary A&P Assessment and plan (1) Hypotension: Hypotension likely a mix of A. fib with RVR and medication induced. -No source of sepsis identified. She is off Levophed and diltiazem. -She is maintaining her MAP more than 65 mmHg. Status: Acute Qualifiers: Hypotension type: unspecified hypotension type Qualified Code(s): I95.9 - Hypotension, unspecified (2) Atrial fibrillation with RVR: Patient is off cardizem drip, PRN metoprolol 2.5 mg IV and heparin gtt (held d/t drop in H&H). -She has a history of chronic anemia requiring intermittent blood transfusion with negative prior work-up. -Consider restarting heparin drip if H&H remains stable. Status: Acute (3) Acute exacerbation of CHF (congestive heart failure): Agree with administering Bumex today. Status: Acute Qualifiers: Heart failure type: diastolic Qualified Code(s): I50.33 - Acute on chronic diastolic (congestive) heart failure (4) Pericardial effusion without cardiac tamponade: Repeat echo done bedside showed Moderate to large circumferential pericardial effusion. -No evidence of tamponade physiology presently. -will avoid agressive diuresis. -May consider tap given size of effusion. I discussed her case with Dr. Ureña in detail and decision was made to hold off on tap presently in absence of tamponade physiology. Decision for pericardiocentesis based on clinical progress. I had a long discussion with the patient's daughter Constance and updated her of patient's current status. All her questions were appropriately answered and decision to hold off on pericardiocentesis was conveyed to the patient. Status: Acute (5) Respiratory failure with hypoxia: On empiric antibiotics. Status: Acute Qualifiers: Chronicity: acute on chronic Qualified Code(s): J96.21 - Acute and chronic respiratory failure with hypoxia (6) Shock liver: liver enzymes improving Status: Acute (7) Elevated troponin: Status: Acute Additional A&P Information PIETER: renal function improving, nephrology on board Left pleural effusion Anemia: recieved 2 units of pRBC Thrombocytopenia Thank you for allowing me to participate in patient's care. Please feel free to call with questions or concerns Attestations Medical Necessity Statement*: As per primary team Time Spent in Patient Care: 16 - 35 minutes (>than 50% of time spent in counselling and/or direct pt care on unit). Coding Level of Care Code Acute Motorized Squad Sergeant for Belinda Fwd Diagnoses Hypotension I95.9 Hypotension type: unspecified hypotension type Atrial fibrillation with RVR I48.91 Acute exacerbation of CHF (congestive heart failure) I50.33 Heart failure type: diastolic Pericardial effusion without cardiac tamponade I31.3 Respiratory failure with hypoxia J96.21 Chronicity: acute on chronic Shock liver K72.00 Elevated troponin R79.89
[2020-06-20] MEDS: bumetanide 0.25 mg/mL SDV 10 mL 1 MG IV ×2 (10:41→19:36)
[2020-06-20 12:48] LABS: Glucose Point of Care 110 mg/dL (70-110)
--- NOTE | 2020-06-20 13:36 | PM.PN ---
Subjective Subjective: Interval history: Patient SOB has improved,she is AO *3 . H/R is better controlled , good urine output, ( 2300 ml ) .Liver function test has continued to improve. Has remained Afebrile. Other Vitals and labs have been reviewed . Vitals/I&O/Wt Last Vital Signs Temp 98.1 F 06/20/20 07:00 Pulse 101 H 06/20/20 12:00 Resp 31 H 06/20/20 12:00 BP 101/61 06/20/20 12:00 Pulse Ox 98 06/20/20 12:00 06/19/20 06/20/20 06/20/20 22:59 06:59 14:59 Intake Total 1140 / 1798.677 618 / 2416.677 100 / 100 Output Total 500 / 675 1050 / 1725 Balance 640 / 1123.677 -432 / 691.677 100 / 100 Physical Exam Const: COMMON NORMALS: patient oriented x3 HENMT: COMMON NORMALS: normocephalic, atraumatic, hearing grossly normal bilaterally and external ears normal HEAD & SCALP: normocephalic and atraumatic EXTERNAL EAR: Yes external ears normal Eye: COMMON NORMALS: no scleral icterus GENERAL EYE: appearance normal, both eyes and all related structures Chest: COMMONS NORMALS: normal inspection of the chest and normal palpation of entire chest wall CHEST: Yes Symmetrical chest wall rise Resp: COMMON NORMALS: normal respiratory effort, No retractions, No use of accessory muscles and clear to auscultation bilaterally EFFORT & INSPECTION: Yes symmetric chest movement AUSCULTATION: clear to auscultation bilaterally Cardio: COMMON NORMALS: regular rate, regular rhythm, S1 normal heart sound present, S2 normal heart sound present, No gallops present (Cardio), No murmurs present (Cardio), No rub (Cardio) and Peripheral pulses 2+ throughout RATE: regular rate RHYTHM: regular rhythm HEART SOUNDS: S1 normal heart sound present and S2 normal heart sound present PERIPHERAL PULSES: Peripheral pulses 2+ throughout GI: COMMON NORMALS: Normal to inspection, nondistended, normoactive bowel sounds present, Soft to palpation, non-tender, No hepatosplenomegaly present and no masses AUSCULTATION: Yes normoactive bowel sounds PALPATION: Yes Soft to palpation and Yes No hepatosplenomegaly present RECTAL EXAM: deferred Extremity: COMMON NORMALS: no clubbing, cyanosis or edema and no pedal edema OTHER: 1-2+ edema (R>L). No signs of chronic venous insufficiency. warm extremeties Neuro: COMMON NORMALS: patient oriented x3 Urinary Catheter Management^: Boswell: Cath Placed During This Visit: yes Reason for Continuing Indwelling Catheter: Accurate Measurement of Urinary Output in Critically Ill Patients Urinary Catheter Date of Insertion: 06/15/20 Urinary Catheter Time of Insertion: 19:50 Data : 06/20/20 03:50 06/20/20 03:50 Micro: Microbiology 06/18/20 10:00 Gram Stain - Final Sputum - Expectorated Sputum Sputum Culture - Preliminary A&P Assessment and plan (1) Septic shock: -Likely secondary to acute hypoxic respiratory failure with evidence of multiorgan failure including acute renal injury, acute liver failure. Clinical suspicion for cardiogenic shock given concern for pericardial effusion, noted clinical evidence of acute CHF exacerbation -Noted resolved leukocytosis, continued pressor requirement, significant lactic acidosis trending down, continued oxygen requirement due to persistent hypoxia -daily labs -Is already on broad-spectrum IV antibiotics -CT A/P due to multi-organ involvement to r/o additional sources of infection with no noted acute abnormalities -blood cx prelim negative -UA indicative of infection; urine cx prelim negative -noted evidence of small to moderate pericardial effusion per bedside US, Echo and on CT A/P -supratherapeutic INR, noted oozing from R femoral central line, thrombocytopenia, worsening anemia; hold futher anticoagulation for now. Continue to trend coags Status: Acute (2) Respiratory failure with hypoxia: -has had some intermittent hypoxia at [place] [facility] since COVID-19 infection, was on 3 L consistently -alternating between HHFNC and BiPAP use, decreasing oxygen requirement, low threshold for intubation -hemodynamically unstable; on pressor support, wean as tolerated -close monitoring of respiratory status and vital signs -rapid COVID-19 test negative. Recently treated for COVID-19 pneumonia requiring hospitalization -previously treated with antibiotics, has been on doxycycline and levaquin -noted PCN allergy, on empiric antibiotics (Vanc, Levaquin, Aztreonam) -blood cx: prelim negative -CXR with reported improvement in right pleural effusion, continued consolidation/pleural effusion on the left -Telemetry monitoring -afebrile, no leukocytosis, noted significant lactic acidosis with level of 7, trending down -Concern for severe sepsis as evidenced by hypoxia, tachypnea, hypotension, lactic acidosis -influenza, bacterial antigens, Legionella, MRSA negative -Boswell catheter placed for accurate Is & Os Status: Acute Qualifiers: Chronicity: acute on chronic Qualified Code(s): J96.21 - Acute and chronic respiratory failure with hypoxia (3) Shock liver: -noted significant increase in LFTs indicating acute liver failure -likely related to cardiogenic shock as noted above -has known large left hepatic lobe lesion; stable per repeat imaging -continue to trend LFTs; improving Status: Acute (4) Sepsis: -as noted above Status: Acute Qualifiers: Sepsis type: sepsis due to unspecified organism Sepsis acute organ dysfunction status: with acute organ dysfunction Severe sepsis acute organ dysfunction type: acute respiratory failure Acute respiratory failure type: with hypoxia Severe sepsis shock status: with septic shock Qualified Code(s): A41.9 - Sepsis, unspecified organism; R65.21 - Severe sepsis with septic shock; J96.01 - Acute respiratory failure with hypoxia (5) Acute kidney injury: -continued acute renal impairment -baseline Cr appears to be around 1.2-1.6 -off IV fluid hydration -Continue to monitor renal function, renally dose meds, avoid nephrotoxins -diuretics on hold due to renal impairment and hypotension -CPK wnl -nephrology consult appreciated -good urine output overnight; has Boswell catheter in place -UA with some proteinuria, blood Status: Acute (6) Acute exacerbation of CHF (congestive heart failure): -Chronic HFpEF; concern for acute exacerbation given BNP elevation (8909), LE edema part of which may be chronic -continue to hold diuretics for now due to hypotension and renal impairment. -repeat Echo: EF=55%, G2DD, small to moderate pericardial effusion but no tamponade physiology. Findings discussed with Dr. Ramsey -may need formal cardiology evaluation particularly if continued hemodynamic instability Status: Acute Qualifiers: Heart failure type: diastolic Qualified Code(s): I50.33 - Acute on chronic diastolic (congestive) heart failure (7) Elevated troponin: -noted elevated troponins with no significant delta x 2 hrs -this is likely type II due to demand ischemia secondary to severe sepsis -Echo (09/2019): EF=55%, no RWMA, biatrial enlargement, mild-moderate , mild TR. Repeat Echo noted above Status: Acute (8) Anemia: -baseline Hg is around 9 -continue to trend H/H; gradual drop and will need transfusion of blood products today with Hg down to 7 Status: Chronic Qualifiers: Anemia type: unspecified type Qualified Code(s): D64.9 - Anemia, unspecified (9) Aortic stenosis: -noted mild to moderate per last Echo (09/2019) Status: Chronic Qualifiers: Cardiac valve disease etiology: etiology unspecified Qualified Code(s): I35.0 - Nonrheumatic aortic (valve) stenosis (10) Hyperlipidemia: -on statin Status: Chronic Qualifiers: Hyperlipidemia type: unspecified Qualified Code(s): E78.5 - Hyperlipidemia, unspecified (11) Hypertension: -currently requiring pressor support; BP is improving -continue to hold oral antihypertensives Status: Chronic Qualifiers: Hypertension type: essential hypertension Qualified Code(s): I10 - Essential (primary) hypertension (12) Pulmonary embolism: -prior hx of PE, has been on AC with Eliquis -was on heparin drip; now on hold due to noted supratherapeutic INR, thrombocytopenia, worsening anemia, oozing from central line Status: Chronic Qualifiers: Pulmonary embolism type: unspecified Chronicity: chronic Acute cor pulmonale presence: unspecified Qualified Code(s): I27.82 - Chronic pulmonary embolism (13) Atrial fibrillation with RVR: -failed metoprolol, digoxin, on Cardizem drip currently with little change -no amiodarone right now due to deranged hepatic function -telemetry monitoring -cardiology evaluation tomorrow -continues to require pressor support Status: Acute Additional A&P Information -coagulopathy likely related to liver failure and shock; elevated D-dimer; could be secondary to shock, heparin drip on hold due to noted supratherapeutic INR. Venous duplex negative for DVT, unable to get CTA due to renal impairment. Coags are trending down. Did have an episode of epistaxis today, now resolved. Monitor for further bleeding -Hyperkalemia, resolved; had been on potassium supplementation. Continue to monitor -Morbid obesity: BMI-44 kg/m2 -hx of hypothyroidism; on levothyroxine -LE edema and ulcers; wound care as needed -thrombocytopenia; noted gradual drop in platelet count, continue to monitor, likely related to shock -hypoalbuminemia; would likely benefit from albumin but would wait with need for transfusion to prevent fluid overload. Albumin may help with hemodynamics -CLD for now due to possible need for intubation -GI ppx with PPI -DVT ppx with SCDs -Dispo: return to [facility] -Code status: FULL code; discussed with daughter in law at bedside and [place] [facility], paperwork in chart -continue ICU due to septic shock, high risk for decompensation with possible need for intubation, need for pressor support -guarded prognosis in light of evidence of multiorgan failure Attestations Medical Necessity Statement*: Patient requires hospitalization for continued management of sepsis and Decompensated HFpEF Coding Level of Care Code Acute Print Operator for g Fwd Diagnoses Septic shock A41.9; R65.21 Respiratory failure with hypoxia J96.21 Chronicity: acute on chronic Shock liver K72.00 Sepsis A41.9; R65.21; J96.01 Sepsis type: sepsis due to unspecified organism Sepsis acute organ dysfunction status: with acute organ dysfunction Severe sepsis acute organ dysfunction type: acute respiratory failure Acute respiratory failure type: with hypoxia Severe sepsis shock status: with septic shock Acute kidney injury N17.9 Acute exacerbation of CHF (congestive heart failure) I50.33 Heart failure type: diastolic Elevated troponin R79.89 Anemia D64.9 Anemia type: unspecified type Aortic stenosis I35.0 Cardiac valve disease etiology: etiology unspecified Hyperlipidemia E78.5 Hyperlipidemia type: unspecified Hypertension I10 Hypertension type: essential hypertension Pulmonary embolism I27.82 Pulmonary embolism type: unspecified Chronicity: chronic Acute cor pulmonale presence: unspecified Atrial fibrillation with RVR I48.91
--- NOTE | 2020-06-20 16:04 | DCPLANNER ---
Talked to Daughter; Constance Andrews [phone] regarding the IM. She understands and is happy that we are remembering to call her with these and any messages we may have. Copy left at bedside as agreed.
[2020-06-20 16:27] LABS: ALBUMIN 2.7 g/dL (3.8-4.8); ALPHA 1 GLOBULIN 0.5 g/dL (0.2-0.3); ALPHA 2 GLOBULIN 0.5 g/dL (0.5-0.9); BETA 1 GLOBULIN 0.3 g/dL (0.4-0.6); BETA 2 GLOBULIN 0.4 g/dL (0.2-0.5); GAMMA GLOBULIN 1.3 g/dL (0.8-1.7)
--- NOTE | 2020-06-20 19:16 | PC.NURSE ---
New Order: V/O given by MD Oneil for Bumex 1mg IVP ONCE NOW
[2020-06-20] MEDS: LORazepam 2 mg/mL INJ 1 mL 1 MG IVP (19:36)
[2020-06-20 19:55] LABS: Glucose Point of Care 121 mg/dL (70-110)
[2020-06-20 19:55] LABS: Glucose Point of Care 67 mg/dL (70-110)
[2020-06-20 20:19] LABS: Glucose Point of Care 97 mg/dL (70-110)
[2020-06-20] MEDS: atorvastatin 40 mg Tablet PO (20:41)
[2020-06-21] VITALS (25 sets, daily range): BP systolic 85–155; BP diastolic 50–124; PULSE 82–112; RESP 20–37; TEMP 36.9–37.1; O2SAT 92–100
[2020-06-21] MEDS: LORazepam 2 mg/mL INJ 1 mL 1 MG IVP (01:44)
[2020-06-21 03:45] LABS: Basophils % 0.4 %; Eosinophils # 0.1 10^3/uL (0.0-0.8); Eosinophils % 2.2 %; Hematocrit 31.9 % (37.0-47.0); Hemoglobin 8.6 g/dL (11.5-15.3); Lymphocytes # 0.5 10^3/uL (0.8-4.8); Lymphocytes % 11.2 %; Mean Corpuscular Volume 96.4 fL (81-99); Mean Platelet Volume 10.5 fL (7.4-10.4); Monocytes # 0.5 10^3/uL (0.2-0.9); Monocytes % 11.2 %; Neutrophils # 3.41 10^3/uL (1.8-7.7); Neutrophils % 74.8 %; Nucleated Red Blood Cells % 0 %; Platelet Count 68 10^3/cmm (130-400); Red Blood Count 3.31 10^6/uL (4.1-5.3); Red Cell Distribution Width 19.9 % (12.1-15.1); White Blood Count 4.6 10^3/uL (4.0-10.0)
[2020-06-21 04:04] LABS: Digoxin 1.6 ng/mL (0.6-1.2)
[2020-06-21 04:13] LABS: Alanine Aminotransferase 379 U/L (0-33); Albumin Level 2.6 g/dL (3.5-5.2); Alkaline Phosphatase 163 IU/L (35-105); Anion Gap 11.5 (5-19); Aspartate Amino Transferase 54 U/L (0-32); Blood Urea Nitrogen 35 mg/dL (8-23); Carbon Dioxide 28 mmol/L (22-29); Chloride 110 mmol/L (98-107); Globulin 2.8 g/dL (1.3-4.6); Glucose 103 mg/dL (65-115); Magnesium 1.6 mg/dL (1.7-2.3); Osmolality Calculated 310 mOsm/kg (285-295); Potassium 3.5 mmol/L (3.5-5.1); Sodium 146 mmol/L (136-145); Total Bilirubin 0.9 mg/dL (0.15-1.2); Total Protein 5.4 g/dL (6.6-8.7)
--- NOTE | 2020-06-21 06:00 | XR_ITS ---
WS: [id number] Portable AP upright chest, 06/21/2020 Clinical Data: PNA Comparison: Portable chest, 06/16/2020. Findings: The heart remains enlarged. There is a moderate left pleural effusion. There is patchy atel ectasis probably in both lower lobes. The upper lobes are clear. The aortic arch is tortuous with belkis cification. There are monitor leads on the chest wall. XR/XR chest 1V portable [id number] Impression: 1. No change in cardiomegaly. 2. Patchy atelectasis in the right lower lobe which is developed since the last chest x-ray. 2. Left pleural effusion and probable atelectasis and/or consolidation in the l eft lower lobe.
--- NOTE | 2020-06-21 07:06 | P.PN_ITS ---
Subjective Subjective: Interval history: sob on bipap, swollen, weak, lethargic, confused. Medications: Reviewed: Yes Medication Review Details: Current Medications Acetaminophen (Acetaminophen 325 Mg Tablet) 650 mg PO Q6H PRN PRN Reason: MILD PAIN Last Admin: 06/19/20 21:02 Dose: 650 mg Documented by: Acetaminophen (Tylenol) 650 mg NC Q6H PRN PRN Reason: FEVER Acetylcysteine (Acetylcysteine 200 Mg/Ml Sdv 4 Ml) 100 mg INHALATION TID [facility] Last Admin: 06/20/20 20:08 Dose: 100 mg Documented by: Albuterol Sulfate (Ventolin) 2 puff INHALATION Q4H.RESPIRATORY PRN PRN Reason: SHORTNESS OF BREATH Albuterol/Ipratropium (Ipratropium-Albuterol 3 Ml Neb) 3 ml INHALATION TID [facility] Last Admin: 06/20/20 20:08 Dose: 3 ml Documented by: Aspirin (Aspirin Chewable) 81 mg PO DAILY [facility] Last Admin: 06/16/20 09:09 Dose: 81 mg Documented by: Atorvastatin Calcium (Lipitor) 40 mg PO BEDTIME [facility] Last Admin: 06/20/20 20:41 Dose: 40 mg Documented by: Bisacodyl (Bisac-Evac) 10 mg NC DAILY PRN PRN Reason: Constipation Dextrose (D50w) 25 ml IVP ONCE PRN; Protocol PRN Reason: hypoglycemia protocol Last Admin: 06/15/20 23:03 Dose: 25 ml Documented by: Dextrose (D50w) 50 ml IVP PRN PRN; Protocol PRN Reason: hypoglycemia protocol Digoxin (Digoxin 250 Mcg/Ml Inj 2 Ml) 125 mcg IVP DAILY [facility] Last Admin: 06/20/20 09:34 Dose: 125 mcg Documented by: Folic Acid (Folic Acid) 1 mg PO DAILY [facility] Last Admin: 06/20/20 09:35 Dose: 1 mg Documented by: Glucagon (Glucagen) 1 mg IM ONCE PRN; Protocol PRN Reason: Adult Acute Hypoglycemia Prot. Vancomycin HCl 1,500 mg/ (Sodium Chloride) 250 mls @ 166.667 mls/hr IV Q48H [facility]; Protocol Last Infusion: 06/19/20 22:51 Dose: Infused Documented by: Dextrose (D5w) 500 mls @ 100 mls/hr IV ONCE PRN; Protocol PRN Reason: Adult Acute Hypoglycemia Prot Norepinephrine Bitartrate 4 mg (/ Dextrose) 254 mls @ 0 mls/hr IV .Q0M [facility]; Protocol Last Titration: 06/19/20 07:00 Dose: 0 mcg/min, 0 mls/hr Documented by: Imipenem/Cilastatin Sodium 250 (mg/ Sodium Chloride) 100 mls @ 200 mls/hr IV Q6H [facility] Last Infusion: 06/21/20 03:01 Dose: Infused Documented by: Amiodarone HCl 900 mg/Dextrose/ IV Miscellaneous Supplies 518 mls @ 34.533 mls/hr IV .Q15H1M [facility]; Protocol Last Admin: 06/21/20 06:08 Dose: 1 mg/min, 34.5 mls/hr Documented by: Levothyroxine Sodium (Synthroid) 225 mcg PO DAILY [facility] Last Admin: 06/20/20 09:35 Dose: 225 mcg Documented by: Lorazepam (Lorazepam 2 Mg/Ml Inj 1 Ml) 1 mg IVP Q6H PRN PRN Reason: ANXIETY Last Admin: 06/21/20 01:44 Dose: 1 mg Documented by: Ondansetron HCl (Zofran) 4 mg IVP Q6H PRN PRN Reason: NAUSEA AND VOMITING Pantoprazole Sodium (Pantoprazole Dr 40 Mg Tablet) 40 mg PO BID [facility] Vitals/I&O/Wt Last Vital Signs Temp 98.2 F 06/20/20 19:00 Pulse 91 06/21/20 06:08 Resp 26 H 06/21/20 06:00 BP 96/70 06/21/20 06:00 Pulse Ox 98 06/21/20 06:08 06/20/20 06/21/20 06/21/20 22:59 06:59 14:59 Intake Total 717.012 / 1657.012 592.775 / 2249.787 Output Total 1250 / 1250 550 / 1800 Balance -532.988 / 407.012 42.775 / 449.787 Physical Exam Narrative: EXAM NARRATIVE: elderly lady on BiPAP- more SOB in bed, off levo. 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 dull bases and crackles, wheezes heart- irreg irreg, s1, s2, HR improved abd soft, nt, nd, +BS ext b/l edema increased neuro- a,a, o x1-2 + morrison Urinary Catheter Management^: Morrison: Cath Placed During This Visit: yes Reason for Continuing Indwelling Catheter: Accurate Measurement of Urinary Output in Critically Ill Patients Urinary Catheter Date of Insertion: 06/15/20 Urinary Catheter Time of Insertion: 19:50 Data : 06/21/20 03:25 06/21/20 03:25 Micro: Microbiology 06/15/20 21:10 Blood Culture - Final Blood NO GROWTH AFTER 5 DAYS 06/15/20 13:55 Blood Culture - Final Blood NO GROWTH AFTER 5 DAYS 06/18/20 10:00 Gram Stain - Final Sputum - Expectorated Sputum Sputum Culture - Final A&P Additional A&P Information 74 yr old female shock -likely combined cardiogenic and septic -no clear infectious source. On vanco, aztreonam, and levaquin. Leukocytosis has improved. FOLLOW VANCO LEVELS- KEEP TROUGH UNDER 19. today is 16 2. Acute kidney injury due to hypotension, dec CO. lft's and CR are improving -maximize CHF management and BP support 3. CKD stage 3- Serum Cr 1.4 mg/dL at last hospital discharge 4. anemia, thrombocytopenia- iron sat [place] at 53% [place] [address] - ldh 384 and 337, retic, haptoglobin 55, spep negative for monoclonal protein -monitor hgb pt had a high INR- is improving 5. Lactic acidosis resolved, serum bicarbonate now high 6. hypernatremia- from diuretics- pt needs fluids off. consider thorocentesis, pericardial effusion drainage. monitor na on diuretics. if needs diuretics, use zaroxlyn- a thiazide diuretic 7. pericardial effusion and a fib w/ RVR per cardiology -consider pericardiocentesis -diuresis per cardiology -monitor dig level 8. Transaminitis improviing 9. replace magnesium needs nutrition Attestations Medical Necessity Statement*: a fib, chf, pericardial effusion, hypernatremia, improving PIETER Time Spent in Patient Care: 16 - 35 minutes Coding Level of Care Code Acute Para Educator for Belinda [facility]
[2020-06-21 07:49] LABS: Glucose Point of Care 83 mg/dL (70-110)
[2020-06-21] MEDS: ipratropium-albuterol 3 mL Neb INHALATION ×3 (08:02→20:56)
[2020-06-21] MEDS: acetylcysteine 200 mg/mL SDV 4 mL 100 MG INHALATION ×3 (08:02→20:56)
[2020-06-21 08:27] LABS: Digoxin 1.5 ng/mL (0.6-1.2)
--- NOTE | 2020-06-21 10:35 | P.PN_ITS ---
Subjective Subjective: Interval history: She has improved a lot. Currently AO *3 .Has remained afebrile, SOB has improved. Medications: Reviewed: Yes Medication Review Details: Current Medications Acetaminophen (Acetaminophen 325 Mg Tablet) 650 mg PO Q6H PRN PRN Reason: MILD PAIN Last Admin: 06/19/20 21:02 Dose: 650 mg Documented by: Acetaminophen (Tylenol) 650 mg AL Q6H PRN PRN Reason: FEVER Acetylcysteine (Acetylcysteine 200 Mg/Ml Sdv 4 Ml) 100 mg INHALATION TID [facility] Last Admin: 06/21/20 14:12 Dose: 100 mg Documented by: Albuterol Sulfate (Ventolin) 2 puff INHALATION Q4H.RESPIRATORY PRN PRN Reason: SHORTNESS OF BREATH Albuterol/Ipratropium (Ipratropium-Albuterol 3 Ml Neb) 3 ml INHALATION TID [facility] Last Admin: 06/21/20 14:12 Dose: 3 ml Documented by: Amiodarone HCl (Amiodarone 200 Mg Tablet) 400 mg PO TID [facility] Aspirin (Aspirin Chewable) 81 mg PO DAILY [facility] Last Admin: 06/16/20 09:09 Dose: 81 mg Documented by: Atorvastatin Calcium (Lipitor) 40 mg PO BEDTIME [facility] Last Admin: 06/20/20 20:41 Dose: 40 mg Documented by: Bisacodyl (Bisac-Evac) 10 mg AL DAILY PRN PRN Reason: Constipation Dextrose (D50w) 25 ml IVP ONCE PRN; Protocol PRN Reason: hypoglycemia protocol Last Admin: 06/15/20 23:03 Dose: 25 ml Documented by: Dextrose (D50w) 50 ml IVP PRN PRN; Protocol PRN Reason: hypoglycemia protocol Digoxin (Digoxin 250 Mcg/Ml Inj 2 Ml) 125 mcg IVP DAILY [facility] Last Admin: 06/21/20 16:00 Dose: Not Given Documented by: Folic Acid (Folic Acid) 1 mg PO DAILY [facility] Last Admin: 06/21/20 11:10 Dose: 1 mg Documented by: Glucagon (Glucagen) 1 mg IM ONCE PRN; Protocol PRN Reason: Adult Acute Hypoglycemia Prot. Dextrose (D5w) 500 mls @ 100 mls/hr IV ONCE PRN; Protocol PRN Reason: Adult Acute Hypoglycemia Prot Norepinephrine Bitartrate 4 mg (/ Dextrose) 254 mls @ 0 mls/hr IV .Q0M [facility]; Protocol Last Titration: 06/19/20 07:00 Dose: 0 mcg/min, 0 mls/hr Documented by: Imipenem/Cilastatin Sodium 250 (mg/ Sodium Chloride) 100 mls @ 200 mls/hr IV Q6H [facility] Last Admin: 06/21/20 11:11 Dose: 200 mls/hr Documented by: Vancomycin HCl 1,500 mg/ (Sodium Chloride) 250 mls @ 166.667 mls/hr IV Q24H [facility]; Protocol Sodium Chloride (Sodium Chloride 0.9%) 500 mls @ 150 mls/hr IV .Q3H20M ONE Stop: 06/21/20 18:43 Levothyroxine Sodium (Synthroid) 225 mcg PO DAILY [facility] Last Admin: 06/21/20 11:10 Dose: 225 mcg Documented by: Lorazepam (Lorazepam 2 Mg/Ml Inj 1 Ml) 1 mg IVP Q6H PRN PRN Reason: ANXIETY Last Admin: 06/21/20 01:44 Dose: 1 mg Documented by: Magnesium Oxide (Magnesium Oxide 400 Mg Tablet) 400 mg PO BID [facility] Last Admin: 06/21/20 11:11 Dose: 400 mg Documented by: Metoprolol Tartrate (Metoprolol Tartrate 25 Mg Tablet) 12.5 mg PO BID [facility] Ondansetron HCl (Zofran) 4 mg IVP Q6H PRN PRN Reason: NAUSEA AND VOMITING Pantoprazole Sodium (Pantoprazole Dr 40 Mg Tablet) 40 mg PO BID [facility] Last Admin: 06/21/20 11:11 Dose: 40 mg Documented by: Vitals/I&O/Wt Last Vital Signs Temp 98.2 F 06/20/20 19:00 Pulse 107 H 06/21/20 08:02 Resp 26 H 06/21/20 08:02 BP 96/70 06/21/20 06:00 Pulse Ox 98 06/21/20 08:02 06/20/20 06/21/20 06/21/20 22:59 06:59 14:59 Intake Total 717.012 / 1657.012 592.775 / 2249.787 Output Total 1250 / 1250 550 / 1800 Balance -532.988 / 407.012 42.775 / 449.787 Physical Exam Const: COMMON NORMALS: patient oriented x3 HENMT: COMMON NORMALS: normocephalic, atraumatic, hearing grossly normal bilaterally and external ears normal HEAD & SCALP: normocephalic and at raumatic EXTERNAL EAR: Yes external ears normal Eye: COMMON NORMALS: no scleral icterus GENERAL EYE: appearance normal, both eyes and all related structures Chest: COMMONS NORMALS: normal inspection of the chest and normal palpation of entire chest wall CHEST: Yes Symmetrical chest wall rise Resp: COMMON NORMALS: normal respiratory effort, No retractions, No use of accessory muscles and clear to auscultation bilaterally EFFORT & INSPECTION: Yes symmetric chest movement AUSCULTATION: clear to auscultation bilaterally Cardio: COMMON NORMALS: regular rate, regular rhythm, S1 normal heart sound present, S2 normal heart sound present, No gallops present (Cardio), No murmurs present (Cardio), No rub (Cardio) and Peripheral pulses 2+ throughout RATE: regular rate RHYTHM: regular rhythm HEART SOUNDS: S1 normal heart sound present and S2 normal heart sound present PERIPHERAL PULSES: Peripheral pulses 2+ throughout GI: COMMON NORMALS: Normal to inspection, nondistended, normoactive bowel sounds present, Soft to palpation, non-tender, No hepatosplenomegaly present and no masses AUSCULTATION: Yes normoactive bowel sounds PALPATION: Yes Soft to palpation and Yes No hepatosplenomegaly present RECTAL EXAM: deferred Extremity: COMMON NORMALS: no clubbing, cyanosis or edema and no pedal edema OTHER: 1-2+ edema (R>L). No signs of chronic venous insufficiency. warm extremeties Neuro: COMMON NORMALS: patient oriented x3 Urinary Catheter Management^: Boswell: Cath Placed During This Visit: yes Reason for Continuing Indwelling Catheter: Accurate Measurement of Urinary Output in Critically Ill Patients Urinary Catheter Date of Insertion: 06/15/20 Urinary Catheter Time of Insertion: 19:50 Data : 06/21/20 03:25 06/21/20 03:25 Micro: Microbiology 06/15/20 21:10 Blood Culture - Final Blood NO GROWTH AFTER 5 DAYS 06/15/20 13:55 Blood Culture - Final Blood NO GROWTH AFTER 5 DAYS 06/18/20 10:00 Gram Stain - Final Sputum - Expectorated Sputum Sputum Culture - Final A&P Assessment and plan (1) Septic shock: -Likely secondary to acute hypoxic respiratory failure with evidence of multiorgan failure including acute renal injury, acute liver failure. Clinical suspicion for cardiogenic shock given concern for pericardial effusion, noted clinical evidence of acute CHF exacerbation -Noted resolved leukocytosis, continued pressor requirement, significant lactic acidosis trending down, continued oxygen requirement due to persistent hypoxia -daily labs -Is already on broad-spectrum IV antibiotics -CT A/P due to multi-organ involvement to r/o additional sources of infection with no noted acute abnormalities -blood cx prelim negative -UA indicative of infection; urine cx prelim negative -noted evidence of small to moderate pericardial effusion per bedside US, Echo and on CT A/P -supratherapeutic INR, noted oozing from R femoral central line, thrombocytopenia, worsening anemia; hold futher anticoagulation for now. Continue to trend coags Status: Acute (2) Respiratory failure with hypoxia: -[facility] some [facility] hypoxia [facility] jail since COVID-19 infection, was on 3 L consistently -alternating between HHFNC and BiPAP use, decreasing oxygen requirement, low threshold for intubation -hemodynamically unstable; on pressor support, wean as tolerated -close monitoring of respiratory status and vital signs -rapid COVID-19 test negative. Recently treated for COVID-19 pneumonia requiring hospitalization -previously treated with antibiotics, has been on doxycycline and levaquin -noted PCN allergy, on empiric antibiotics (Vanc, Levaquin, Aztreonam) -blood cx: prelim negative -CXR with reported improvement in right pleural effusion, continued consolidation/pleural effusion on the left -Telemetry monitoring -afebrile, no leukocytosis, noted significant lactic acidosis with level of 7, trending down -Concern for severe sepsis as evidenced by hypoxia, tachypnea, hypotension, lactic acidosis -influenza, bacterial antigens, Legionella, MRSA negative -Boswell catheter placed for accurate Is & Os Status: Acute Qualifiers: Chronicity: acute on chronic Qualified Code(s): J96.21 - Acute and chronic respiratory failure with hypoxia (3) Shock liver: -noted significant increase in LFTs indicating acute liver failure -likely related to cardiogenic shock as noted above -has known large left hepatic lobe lesion; stable per repeat imaging -continue to trend LFTs; improving Status: Acute (4) Sepsis: -as noted above Status: Acute Qualifiers: Sepsis type: sepsis due to unspecified organism Sepsis acute organ dysfunction status: with acute organ dysfunction Severe sepsis acute organ dysfunction type: acute respiratory failure Acute respiratory failure type: with hypoxia Severe sepsis shock status: with septic shock Qualified Code(s): A41.9 - Sepsis, unspecified organism; R65.21 - Severe sepsis with septic shock; J96.01 - Acute respiratory failure with hypoxia (5) Acute kidney injury: -continued acute renal impairment -baseline Cr appears to be around 1.2-1.6 -off IV fluid hydration -Continue to monitor renal function, renally dose meds, avoid nephrotoxins -diuretics on hold due to renal impairment and hypotension -CPK wnl -nephrology consult appreciated -good urine output overnight; has Boswell catheter in place -UA with some proteinuria, blood Status: Acute (6) Acute exacerbation of CHF (congestive heart failure): -Chronic HFpEF; concern for acute exacerbation given BNP elevation (8909), LE edema part of which may be chronic -continue to hold diuretics for now due to hypotension and renal impairment. -repeat Echo: EF=55%, G2DD, small to moderate pericardial effusion but no tamponade physiology. Findings discussed with Dr. Ramsey -may need formal cardiology evaluation particularly if continued hemodynamic instability Status: Acute Qualifiers: Heart failure type: diastolic Qualified Code(s): I50.33 - Acute on chronic diastolic (congestive) heart failure (7) Elevated troponin: -noted elevated troponins with no significant delta x 2 hrs -this is likely type II due to demand ischemia secondary to severe sepsis -Echo (09/2019): EF=55%, no RWMA, biatrial enlargement, mild-moderate , mild TR. Repeat Echo noted above Status: Acute (8) Anemia: -baseline Hg is around 9 -continue to trend H/H; gradual drop and will need transfusion of blood products today with Hg down to 7 Status: Chronic Qualifiers: Anemia type: unspecified type Qualified Code(s): D64.9 - Anemia, unspecified (9) Aortic stenosis: -noted mild to moderate per last Echo (09/2019) Status: Chronic Qualifiers: Cardiac valve disease etiology: etiology unspecified Qualified Code(s): I35.0 - Nonrheumatic aortic (valve) stenosis (10) Hyperlipidemia: -on statin Status: Chronic Qualifiers: Hyperlipidemia type: unspecified Qualified Code(s): E78.5 - Hyperlipidemia, unspecified (11) Hypertension: -currently requiring pressor support; BP is improving -continue to hold oral antihypertensives Status: Chronic Qualifiers: Hypertension type: essential hypertension Qualified Code(s): I10 - Essential (primary) hypertension (12) Pulmonary embolism: -prior hx of PE, has been on AC with Eliquis -was on heparin drip; now on hold due to noted supratherapeutic INR, thrombocytopenia, worsening anemia, oozing from central line Status: Chronic Qualifiers: Pulmonary embolism type: unspecified Chronicity: chronic Acute cor pulmonale presence: unspecified Qualified Code(s): I27.82 - Chronic pulmonary embolism (13) Atrial fibrillation with RVR: -failed metoprolol, digoxin, on Cardizem drip currently with little change -no amiodarone right now due to deranged hepatic function -telemetry monitoring -cardiology evaluation tomorrow -continues to require pressor support Status: Acute Additional A&P Information -coagulopathy likely related to liver failure and shock; elevated D-dimer; could be secondary to shock, heparin drip on hold due to noted supratherapeutic INR. Venous duplex negative for DVT, unable to get CTA due to renal impairment. Coags are trending down. Did have an episode of epistaxis today, now resolved. Monitor for further bleeding -Hyperkalemia, resolved; had been on potassium supplementation. Continue to monitor -Morbid obesity: BMI-44 kg/m2 -hx of hypothyroidism; on levothyroxine -LE edema and ulcers; wound care as needed -thrombocytopenia; noted gradual drop in platelet count, continue to monitor, likely related to shock -hypoalbuminemia; would likely benefit from albumin but would wait with need for transfusion to prevent fluid overload. Albumin may help with hemodynamics -CLD for now due to possible need for intubation -GI ppx with PPI -DVT ppx with SCDs -Dispo: return to [facility] -Code status: FULL code; discussed with daughter in law at bedside and jail, paperwork in chart -continue ICU due to septic shock, high risk for decompensation with possible need for intubation, need for pressor support -guarded prognosis in light of evidence of multiorgan failure Attestations Medical Necessity Statement*: Patient needs to be in hospital for the management of Ac Decmpensated HFpEF as well Sepsis 2/2 PNA Coding Level of Care Code Acute [employer]en Suiting 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 for [facility] Fwd Diagnoses Septic shock A41.9; R65.21 Respiratory failure with hypoxia J96.21 Chronicity: acute on chronic Shock liver K72.00 Sepsis A41.9; R65.21; J96.01 Sepsis type: sepsis due to unspecified organism Sepsis acute organ dysfunction status: with acute organ dysfunction Severe sepsis acute organ dysfunction type: acute respiratory failure Acute respiratory failure type: with hypoxia Severe sepsis shock status: with septic shock Acute kidney injury N17.9 Acute exacerbation of CHF (congestive heart failure) I50.33 Heart failure type: diastolic Elevated troponin R79.89 Anemia D64.9 Anemia type: unspecified type Aortic stenosis I35.0 Cardiac valve disease etiology: etiology unspecified Hyperlipidemia E78.5 Hyperlipidemia type: unspecified Hypertension I10 Hypertension type: essential hypertension Pulmonary embolism I27.82 Pulmonary embolism type: unspecified Chronicity: chronic Acute cor pulmonale presence: unspecified Atrial fibrillation with RVR I48.91
[2020-06-21] MEDS: levothyroxine 150 mcg Tablet 225 MCG PO (11:10)
[2020-06-21] MEDS: folic acid 1 mg Tablet PO (11:10)
[2020-06-21] MEDS: pantoprazole DR 40 mg Tablet PO ×2 (11:11→18:19)
[2020-06-21] MEDS: magnesium oxide 400 mg tablet PO ×2 (11:11→18:19)
[2020-06-21 12:58] LABS: Anti-Nuclear Antibody Pattern Nuclear, Homogeneous; Anti-Nuclear Antibody Screen POSITIVE (NEGATIVE)
[2020-06-21] MEDS: sodium chloride 0.9% 500 ML 150 ML IV (15:25)
--- NOTE | 2020-06-21 17:29 | P.PN_ITS ---
Subjective Subjective: Interval history: Remains SOB and on O2 4 L via NC. HR is better; Digoxin level increased Medications: Reviewed: Yes Medication Review Details: Current Medications Acetaminophen (Acetaminophen 325 Mg Tablet) 650 mg PO Q6H PRN PRN Reason: MILD PAIN Last Admin: 06/19/20 21:02 Dose: 650 mg Documented by: Acetaminophen (Tylenol) 650 mg [place] Q6H PRN PRN Reason: FEVER Acetylcysteine (Acetylcysteine 200 Mg/Ml Sdv 4 Ml) 100 mg INHALATION TID [facility] Last Admin: 06/21/20 14:12 Dose: 100 mg Documented by: Albuterol Sulfate (Ventolin) 2 puff INHALATION Q4H.RESPIRATORY PRN PRN Reason: SHORTNESS OF BREATH Albuterol/Ipratropium (Ipratropium-Albuterol 3 Ml Neb) 3 ml INHALATION TID [facility] Last Admin: 06/21/20 14:12 Dose: 3 ml Documented by: Amiodarone HCl (Amiodarone 200 Mg Tablet) 400 mg PO TID [facility] Aspirin (Aspirin Chewable) 81 mg PO DAILY [facility] Last Admin: 06/16/20 09:09 Dose: 81 mg Documented by: Atorvastatin Calcium (Lipitor) 40 mg PO BEDTIME [facility] Last Admin: 06/20/20 20:41 Dose: 40 mg Documented by: Bisacodyl (Bisac-Evac) 10 mg [place] DAILY PRN PRN Reason: Constipation Dextrose (D50w) 25 ml IVP ONCE PRN; Protocol PRN Reason: hypoglycemia protocol Last Admin: 06/15/20 23:03 Dose: 25 ml Documented by: Dextrose (D50w) 50 ml IVP PRN PRN; Protocol PRN Reason: hypoglycemia protocol Digoxin (Digoxin 250 Mcg/Ml Inj 2 Ml) 125 mcg IVP DAILY [facility] Last Admin: 06/21/20 16:00 Dose: Not Given Documented by: Folic Acid (Folic Acid) 1 mg PO DAILY [facility] Last Admin: 06/21/20 11:10 Dose: 1 mg Documented by: Glucagon (Glucagen) 1 mg IM ONCE PRN; Protocol PRN Reason: Adult Acute Hypoglycemia Prot. Dextrose (D5w) 500 mls @ 100 mls/hr IV ONCE PRN; Protocol PRN Reason: Adult Acute Hypoglycemia Prot Norepinephrine Bitartrate 4 mg (/ Dextrose) 254 mls @ 0 mls/hr IV .Q0M [facility]; Protocol Last Titration: 06/19/20 07:00 Dose: 0 mcg/min, 0 mls/hr Documented by: Imipenem/Cilastatin Sodium 250 (mg/ Sodium Chloride) 100 mls @ 200 mls/hr IV Q6H [facility] Last Admin: 06/21/20 11:11 Dose: 200 mls/hr Documented by: Vancomycin HCl 1,500 mg/ (Sodium Chloride) 250 mls @ 166.667 mls/hr IV Q24H [facility]; Protocol Sodium Chloride (Sodium Chloride 0.9%) 500 mls @ 150 mls/hr IV .Q3H20M ONE Stop: 06/21/20 18:43 Levothyroxine Sodium (Synthroid) 225 mcg PO DAILY [facility] Last Admin: 06/21/20 11:10 Dose: 225 mcg Documented by: Lorazepam (Lorazepam 2 Mg/Ml Inj 1 Ml) 1 mg IVP Q6H PRN PRN Reason: ANXIETY Last Admin: 06/21/20 01:44 Dose: 1 mg Documented by: Magnesium Oxide (Magnesium Oxide 400 Mg Tablet) 400 mg PO BID [facility] Last Admin: 06/21/20 11:11 Dose: 400 mg Documented by: Metoprolol Tartrate (Metoprolol Tartrate 25 Mg Tablet) 12.5 mg PO BID [facility] Ondansetron HCl (Zofran) 4 mg IVP Q6H PRN PRN Reason: NAUSEA AND VOMITING Pantoprazole Sodium (Pantoprazole Dr 40 Mg Tablet) 40 mg PO BID [facility] Last Admin: 06/21/20 11:11 Dose: 40 mg Documented by: Vitals/I&O/Wt Last Vital Signs Temp 98.2 F 06/20/20 19:00 Pulse 105 H 06/21/20 14:05 Resp 32 H 06/21/20 14:05 BP 92/67 06/21/20 12:00 Pulse Ox 97 06/21/20 14:05 06/21/20 06/21/20 06/21/20 06:59 14:59 22:59 Intake Total 592.775 / 2249.787 120 / 120 Output Total 550 / 1800 Balance 42.775 / 449.787 120 / 120 Physical Exam Narrative: EXAM NARRATIVE: GENERAL:obese lady sitting propped up in bed; currently on 4 L of O2 HEENT: Pupils equal round reactive to light. Mild pallor or icterus. NECK: JVD not appreciated, No carotid bruit. CARDIOVASCULAR SYSTEM: S1-S2 irregular. tachycardia+ ;No murmur rubs or gallops. RESPIRATORY SYSTEM:tachypnea+ Decreased breath sounds on left > right side No wheezes rhonchi or rubs heard. EXTREMITIES: No cyanosis. trace edema. 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 SKIN: left leg erythema+ Urinary Catheter Management^: Boswell: Cath Placed During This Visit: yes Reason for Continuing Indwelling Catheter: Accurate Measurement of Urinary Output in Critically Ill Patients Urinary Catheter Date of Insertion: 06/15/20 Urinary Catheter Time of Insertion: 19:50 Data : 06/21/20 03:25 06/21/20 03:25 Micro: Microbiology 06/15/20 21:10 Blood Culture - Final Blood NO GROWTH AFTER 5 DAYS 06/15/20 13:55 Blood Culture - Final Blood NO GROWTH AFTER 5 DAYS 06/18/20 10:00 Gram Stain - Final Sputum - Expectorated Sputum Sputum Culture - Final A&P Assessment and plan (1) Hypotension: Hypotension likely a mix of A. fib with RVR and medication induced. -No source of sepsis identified. She is off Levophed and diltiazem. -She is maintaining her MAP more than 65 mmHg. Status: Acute Qualifiers: Hypotension type: unspecified hypotension type Qualified Code(s): I95.9 - Hypotension, unspecified (2) Atrial fibrillation with RVR: Patient is off cardizem drip and heparin gtt (held d/t drop in H&H). -She has a history of chronic anemia requiring intermittent blood transfusion with negative prior work-up. -change amiodarone to 400 TID and stop amiodarone drip. Digoxin held today; consider restarting Dig 62.5 mcg after checking Dig level day after tomorrow. -Hold off on anticoagulation in anticipation of procedure. Status: Acute (3) Acute exacerbation of CHF (congestive heart failure): Hold off on diuretics today. Status: Acute Qualifiers: Heart failure type: diastolic Qualified Code(s): I50.33 - Acute on chronic diastolic (congestive) heart failure (4) Pericardial effusion without cardiac tamponade: Repeat echo done bedside showed Moderate to large circumferential pericardial effusion. -No evidence of tamponade physiology presently. -will avoid agressive diuresis. -May consider tap given size of effusion. I discussed her case with Dr. Ureña in detail and decision was made to hold off on tap presently in absence of tamponade physiology. Decision for pericardiocentesis based on clinical progress. I had a long discussion with the patient's daughter Constance and updated her of patient's current status. All her questions were appropriately answered and decision revisit pericardiocentesis was conveyed to the patient. -plan for limited echo tomorrow. Status: Acute (5) Respiratory failure with hypoxia: On empiric broad spectrum antibiotics. Chest PT and management per primary and pulmonary team. Status: Acute Qualifiers: Chronicity: acute on chronic Qualified Code(s): J96.21 - Acute and chronic respiratory failure with hypoxia (6) Shock liver: liver enzymes improving Status: Acute (7) Elevated troponin: Status: Acute Additional A&P Information PIETER: renal function improving, nephrology on board Left pleural effusion Anemia: recieved 2 units of pRBC Thrombocytopenia Mild to moderate Hypernatremia Thank you for allowing me to participate in patient's care. Please feel free to call with questions or concerns Attestations Medical Necessity Statement*: Patient requires hospitalization for continued management of Decompensated CHF, pericardial effusion and a. fib with RVR Time Spent in Patient Care: 16 - 35 minutes (>than 50% of time spent in counselling and/or direct pt care on unit) . Coding Level of Care Code Acute Donor Processor for [facility] Fwd Diagnoses Hypotension I95.9 Hypotension type: unspecified hypotension type Atrial fibrillation with RVR I48.91 Acute exacerbation of CHF (congestive heart failure) I50.33 Heart failure type: diastolic Pericardial effusion without cardiac tamponade I31.3 Respiratory failure with hypoxia J96.21 Chronicity: acute on chronic Shock liver K72.00 Elevated troponin R79.89
[2020-06-21 18:17] LABS: Glucose Point of Care 106 mg/dL (70-110)
[2020-06-21] MEDS: metoprolol tartrate 25 mg Tablet 12.5 MG PO (18:19)
[2020-06-21] MEDS: magnesium sulfate premix 2 GM/50 ML PIGGYBACK IV (19:35)
[2020-06-21] MEDS: amiodarone 200 mg Tablet 400 MG PO (20:00)
[2020-06-21] MEDS: zolpidem 5 mg Tablet PO (20:00)
[2020-06-21] MEDS: atorvastatin 40 mg Tablet PO (20:00)
[2020-06-22] VITALS (25 sets, daily range): BP systolic 92–155; BP diastolic 51–107; PULSE 85–111; RESP 18–41; TEMP 37.1; O2SAT 89–100
[2020-06-22 04:15] LABS: Alanine Aminotransferase 263 U/L (0-33); Albumin Level 2.7 g/dL (3.5-5.2); Alkaline Phosphatase 156 IU/L (35-105); Anion Gap 8.5 (5-19); Aspartate Amino Transferase 36 U/L (0-32); Blood Urea Nitrogen 32 mg/dL (8-23); Calcium 8.1 mg/dL (8.5-10.5); Carbon Dioxide 28 mmol/L (22-29); Chloride 109 mmol/L (98-107); Globulin 2.8 g/dL (1.3-4.6); Glucose 99 mg/dL (65-115); Magnesium 2.1 mg/dL (1.7-2.3); Osmolality Calculated 301 mOsm/kg (285-295); Phosphorus 2.6 mg/dL (2.5-4.5); Potassium 3.5 mmol/L (3.5-5.1); Sodium 142 mmol/L (136-145); Total Bilirubin 0.9 mg/dL (0.15-1.2); Total Protein 5.5 g/dL (6.6-8.7)
[2020-06-22 04:16] LABS: Basophils % 0.9 %; Eosinophils # 0.2 10^3/uL (0.0-0.8); Eosinophils % 4.4 %; Hematocrit 32.8 % (37.0-47.0); Hemoglobin 9.2 g/dL (11.5-15.3); Lymphocytes # 0.6 10^3/uL (0.8-4.8); Lymphocytes % 13.6 %; Mean Corpuscular Hemoglobin 26.4 pg (28.0-34.0); Mean Platelet Volume 10.9 fL (7.4-10.4); Monocytes # 0.6 10^3/uL (0.2-0.9); Monocytes % 14.2 %; Neutrophils % 66.7 %; Nucleated Red Blood Cells % 0 %; Platelet Count 74 10^3/cmm (130-400); Red Blood Count 3.49 10^6/uL (4.1-5.3); Red Cell Distribution Width 20.4 % (12.1-15.1); White Blood Count 4.5 10^3/uL (4.0-10.0)
--- NOTE | 2020-06-22 04:22 | PC.NURSE ---
Central Line Removed right femoral central line pulled at this time. Pressure held for 15 minutes until hemostasis achieved. Cleansed site with chlorhexidine and place clear dry sterile dressing to site. Catheter site had nguyen slough around catheter prior to removal. Catheter tip sent to lab for culture. Pt tolerated procedure well. Inserted two 20g peripheral IV's.
[2020-06-22 06:39] LABS: Digoxin 1.3 ng/mL (0.6-1.2)
--- NOTE | 2020-06-22 07:11 | P.PN_ITS ---
Subjective Subjective: Interval history: feels better. more awake. using oxygen. uop decreased- per nurse, is not oliguric. Medications: Reviewed: Yes Medication Review Details: Current Medications Acetaminophen (Acetaminophen 325 Mg Tablet) 650 mg PO Q6H PRN PRN Reason: MILD PAIN Last Admin: 06/19/20 21:02 Dose: 650 mg Documented by: Acetaminophen (Tylenol) 650 mg [place] Q6H PRN PRN Reason: FEVER Acetylcysteine (Acetylcysteine 200 Mg/Ml Sdv 4 Ml) 100 mg INHALATION TID [facility] Last Admin: 06/21/20 20:56 Dose: 100 mg Documented by: Albuterol Sulfate (Ventolin) 2 puff INHALATION Q4H.RESPIRATORY PRN PRN Reason: SHORTNESS OF BREATH Albuterol/Ipratropium (Ipratropium-Albuterol 3 Ml Neb) 3 ml INHALATION TID [facility] Last Admin: 06/21/20 20:56 Dose: 3 ml Documented by: Amiodarone HCl (Amiodarone 200 Mg Tablet) 400 mg PO TID [facility] Last Admin: 06/21/20 20:00 Dose: 400 mg Documented by: Aspirin (Aspirin Chewable) 81 mg PO DAILY [facility] Last Admin: 06/16/20 09:09 Dose: 81 mg Documented by: Atorvastatin Calcium (Lipitor) 40 mg PO BEDTIME [facility] Last Admin: 06/21/20 20:00 Dose: 40 mg Documented by: Bisacodyl (Bisac-Evac) 10 mg [place] DAILY PRN PRN Reason: Constipation Dextrose (D50w) 25 ml IVP ONCE PRN; Protocol PRN Reason: hypoglycemia protocol Last Admin: 06/15/20 23:03 Dose: 25 ml Documented by: Dextrose (D50w) 50 ml IVP PRN PRN; Protocol PRN Reason: hypoglycemia protocol Digoxin (Digoxin 250 Mcg/Ml Inj 2 Ml) 125 mcg IVP DAILY [facility] Last Admin: 06/21/20 16:00 Dose: Not Given Documented by: Folic Acid (Folic Acid) 1 mg PO DAILY [facility] Last Admin: 06/21/20 11:10 Dose: 1 mg Documented by: Glucagon (Glucagen) 1 mg IM ONCE PRN; Protocol PRN Reason: Adult Acute Hypoglycemia Prot. Dextrose (D5w) 500 mls @ 100 mls/hr IV ONCE PRN; Protocol PRN Reason: Adult Acute Hypoglycemia Prot Norepinephrine Bitartrate 4 mg (/ Dextrose) 254 mls @ 0 mls/hr IV .Q0M [facility]; Protocol Last Titration: 06/19/20 07:00 Dose: 0 mcg/min, 0 mls/hr Documented by: Imipenem/Cilastatin Sodium 250 (mg/ Sodium Chloride) 100 mls @ 200 mls/hr IV Q6H [facility] Last Infusion: 06/22/20 04:19 Dose: Infused Documented by: Vancomycin HCl 1,500 mg/ (Sodium Chloride) 250 mls @ 166.667 mls/hr IV Q24H [facility]; Protocol Last Infusion: 06/21/20 21:05 Dose: Infused Documented by: Levothyroxine Sodium (Synthroid) 225 mcg PO DAILY [facility] Last Admin: 06/21/20 11:10 Dose: 225 mcg Documented by: Lorazepam (Lorazepam 2 Mg/Ml Inj 1 Ml) 1 mg IVP Q6H PRN PRN Reason: ANXIETY Last Admin: 06/21/20 01:44 Dose: 1 mg Documented by: Magnesium Oxide (Magnesium Oxide 400 Mg Tablet) 400 mg PO BID [facility] Last Admin: 06/21/20 18:19 Dose: 400 mg Documented by: Metoprolol Tartrate (Metoprolol Tartrate 25 Mg Tablet) 12.5 mg PO BID [facility] Ondansetron HCl (Zofran) 4 mg IVP Q6H PRN PRN Reason: NAUSEA AND VOMITING Pantoprazole Sodium (Pantoprazole Dr 40 Mg Tablet) 40 mg PO BID [facility] Last Admin: 06/21/20 18:19 Dose: 40 mg Documented by: Zolpidem Tartrate (Zolpidem 5 Mg Tablet) 5 mg PO BEDTIME PRN PRN Reason: INSOMNIA Last Admin: 06/21/20 20:00 Dose: 5 mg Documented by: Vitals/I&O/Wt Last Vital Signs Temp 98.8 F 06/22/20 00:00 Pulse 104 H 06/22/20 06:00 Resp 34 H 06/22/20 06:00 BP 100/65 06/22/20 06:00 Pulse Ox 97 06/22/20 06:00 06/21/20 06/22/20 06/22/20 22:59 06:59 14:59 Intake Total 1655.65 / 1875.65 100 / 1975.65 Output Total 125 / 125 400 / 525 Balance 1530.65 / 1750.65 -300 / 1450.65 Physical Exam Narrative: EXAM NARRATIVE: elderly lady on o2, more comfortsble in bed, off levo. 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 On vanco, imipenem. - Leukocytosis has improved. FOLLOW VANCO LEVELS- KEEP TROUGH UNDER 19. 2. Acute kidney injury due to hypotension, dec CO. lft's and CR are improving -maximize CHF management and BP support -cr back to better than baseline 3. CKD stage 3- Serum Cr 1.4 mg/dL at last hospital discharge -cr now 1.2- likely needs inc diuresis 4. anemia, thrombocytopenia- [place] sat [place] 53% [place] [address] - ldh 384 and 337, retic, haptoglobin 55, spep negative for monoclonal protein -monitor hgb -improving plts slightly improved pt had a high INR- is improving 5. Lactic acidosis resolved, serum bicarbonate now high 6. hypernatremia- from diuretics- . if needs diuretics, use zaroxlyn- a thiazide diuretic 7. pericardial effusion and a fib w/ RVR per cardiology -per Dr. Ramsey- will hold off on tap as absence of tamponade physiology -diuresis per cardiology -monitor dig level 8. Transaminitis improviing 9. replace electrolytes as needed -kdur today needs nutrition as renal fxn is improving. na is improving. renal will sign off. please call if we can be of assistance. 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
[2020-06-22 07:46] LABS: Glucose Point of Care 94 mg/dL (70-110)
[2020-06-22] MEDS: potassium chloride ER 20 mEq Tablet PO (07:47)
[2020-06-22] MEDS: acetylcysteine 200 mg/mL SDV 4 mL 100 MG INHALATION ×3 (08:09→20:04)
[2020-06-22] MEDS: ipratropium-albuterol 3 mL Neb INHALATION ×3 (08:09→20:04)
--- NOTE | 2020-06-22 08:57 | P.PN_ITS ---
Subjective Subjective: Interval history: No nw complaints. She had her echo today. She is using BiPaP at night Medications: Reviewed: Yes Medication Review Details: Current Medications Acetaminophen (Acetaminophen 325 Mg Tablet) 650 mg PO Q6H PRN PRN Reason: MILD PAIN Last Admin: 06/19/20 21:02 Dose: 650 mg Documented by: Acetaminophen (Tylenol) 650 mg [place] Q6H PRN PRN Reason: FEVER Acetylcysteine (Acetylcysteine 200 Mg/Ml Sdv 4 Ml) 100 mg INHALATION TID [facility] Last Admin: 06/22/20 14:12 Dose: 100 mg Documented by: Albuterol Sulfate (Ventolin) 2 puff INHALATION Q4H.RESPIRATORY PRN PRN Reason: SHORTNESS OF BREATH Albuterol/Ipratropium (Ipratropium-Albuterol 3 Ml Neb) 3 ml INHALATION TID [facility] Last Admin: 06/22/20 14:12 Dose: 3 ml Documented by: Amiodarone HCl (Amiodarone 200 Mg Tablet) 400 mg PO TID [facility] Last Admin: 06/22/20 14:57 Dose: 400 mg Documented by: Aspirin (Aspirin Chewable) 81 mg PO DAILY [facility] Last Admin: 06/16/20 09:09 Dose: 81 mg Documented by: Atorvastatin Calcium (Lipitor) 40 mg PO BEDTIME [facility] Last Admin: 06/21/20 20:00 Dose: 40 mg Documented by: Bisacodyl (Bisac-Evac) 10 mg [place] DAILY PRN PRN Reason: Constipation Dextrose (D50w) 25 ml IVP ONCE PRN; Protocol PRN Reason: hypoglycemia protocol Last Admin: 06/15/20 23:03 Dose: 25 ml Documented by: Dextrose (D50w) 50 ml IVP PRN PRN; Protocol PRN Reason: hypoglycemia protocol Digoxin (Digoxin 250 Mcg/Ml Inj 2 Ml) 125 mcg IVP DAILY [facility] Last Admin: 06/21/20 16:00 Dose: Not Given Documented by: Folic Acid (Folic Acid) 1 mg PO DAILY [facility] Last Admin: 06/22/20 09:18 Dose: 1 mg Documented by: Glucagon (Glucagen) 1 mg IM ONCE PRN; Protocol PRN Reason: Adult Acute Hypoglycemia Prot. Dextrose (D5w) 500 mls @ 100 mls/hr IV ONCE PRN; Protocol PRN Reason: Adult Acute Hypoglycemia Prot Norepinephrine Bitartrate 4 mg (/ Dextrose) 254 mls @ 0 mls/hr IV .Q0M [facility]; Protocol Last Titration: 06/19/20 07:00 Dose: 0 mcg/min, 0 mls/hr Documented by: Imipenem/Cilastatin Sodium 250 (mg/ Sodium Chloride) 100 mls @ 200 mls/hr IV Q6H [facility] Last Admin: 06/22/20 15:31 Dose: 200 mls/hr Documented by: Levothyroxine Sodium (Synthroid) 225 mcg PO DAILY [facility] Last Admin: 06/22/20 09:13 Dose: 225 mcg Documented by: Lorazepam (Lorazepam 2 Mg/Ml Inj 1 Ml) 1 mg IVP Q6H PRN PRN Reason: ANXIETY Last Admin: 06/21/20 01:44 Dose: 1 mg Documented by: Magnesium Oxide (Magnesium Oxide 400 Mg Tablet) 400 mg PO BID [facility] Last Admin: 06/22/20 17:30 Dose: 400 mg Documented by: Metoprolol Tartrate (Metoprolol Tartrate 25 Mg Tablet) 12.5 mg PO BID [facility] Last Admin: 06/22/20 17:30 Dose: 12.5 mg Documented by: Ondansetron HCl (Zofran) 4 mg IVP Q6H PRN PRN Reason: NAUSEA AND VOMITING Pantoprazole Sodium (Pantoprazole Dr 40 Mg Tablet) 40 mg PO BID [facility] Last Admin: 06/22/20 17:30 Dose: 40 mg Documented by: Zolpidem Tartrate (Zolpidem 5 Mg Tablet) 5 mg PO BEDTIME PRN PRN Reason: INSOMNIA Last Admin: 06/21/20 20:00 Dose: 5 mg Documented by: Vitals/I&O/Wt Last Vital Signs Temp 98.8 F 06/22/20 00:00 Pulse 107 H 06/22/20 08:10 Resp 22 H 06/22/20 08:10 BP 100/65 06/22/20 06:00 Pulse Ox 96 06/22/20 08:10 06/21/20 06/22/20 06/22/20 22:59 06:59 14:59 Intake Total 1655.65 / 1875.65 100 / 1975.65 Output Total 125 / 125 400 / 525 Balance 1530.65 / 1750.65 -300 / 1450.65 Physical Exam Narrative: EXAM NARRATIVE: GENERAL:obese lady sitting propped up in bed; currently on 4 L of O2 HEENT: Pupils equal round reactive to light. Mild pallor or icterus. NECK: JVD not appreciated, No carotid bruit. CARDIOVASCULAR SYSTEM: S1-S2 irregular. tachycardia+ ;No murmur rubs or gallops. RESPIRATORY SYSTEM:tachypnea+ Decreased breath sounds on left > right side No wheezes rhonchi or rubs heard. EXTREMITIES: No cyanosis. trace edema. 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 SKIN: left leg erythema+ Urinary Catheter Management^: Boswell: Cath Placed During This Visit: yes Reason for Continuing Indwelling Catheter: Accurate Measurement of Urinary Output in Critically Ill Patients Urinary Catheter Date of Insertion: 06/15/20 Urinary Catheter Time of Insertion: 19:50 Data : 06/22/20 03:39 06/22/20 03:39 Attestation for Other Data: I personally reviewed and interpreted the following: Other data: # TTE (06/22/20) CONCLUSIONS 1. This is a limited study. 2. Normal left ventricular size and systolic function with no diagnsotic regional wall motion abnormalities. Left ventricular ejection fraction is estimated at 60 %. 3. Moderate circumferential pericardial effusion. No evidence of tamponade physiology. A&P Assessment and plan (1) Hypotension: Hypotension likely a mix of A. fib with RVR and medication induced. -No source of sepsis identified. She is off Levophed and diltiazem. -resolved. -She is maintaining her MAP more than 65 mmHg. Status: Acute Qualifiers: Hypotension type: unspecified hypotension type Qualified Code(s): I95.9 - Hypotension, unspecified (2) Atrial fibrillation with RVR: Patient is off cardizem drip and heparin gtt (held d/t drop in H&H). -She has a history of chronic anemia requiring intermittent blood transfusion with negative prior work-up. -changed amiodarone to 400 TID and off amiodarone drip. Digoxin held; -will consider restarting Dig 62.5 mcg after checking Dig level tomorrow. -increase metoprolol tartrate to 25 mg PO BID. -May restart anticoagulation in morning if H&H stable. Status: Acute (3) Acute exacerbation of CHF (congestive heart failure): agree with bumex dose today Status: Acute Qualifiers: Heart failure type: diastolic Qualified Code(s): I50.33 - Acute on chronic diastolic (congestive) heart failure (4) Pericardial effusion without cardiac tamponade: Repeat echo done bedside showed Moderate to large circumferential da cardial effusion. -No evidence of tamponade physiology presently. -will avoid agressive diuresis. -May consider tap given size of effusion. I discussed her case with Dr. Ureña in detail and decision was made to hold off on tap presently in absence of tamponade physiology. - I had a long discussion with the patient's daughter Constance and updated her of patient's current status. All her questions were appropriately answered. Status: Acute (5) Respiratory failure with hypoxia: On empiric broad spectrum antibiotics. Chest PT and management per primary and pulmonary team. Status: Acute Qualifiers: Chronicity: acute on chronic Qualified Code(s): J96.21 - Acute and chronic respiratory failure with hypoxia (6) Shock liver: liver enzymes improving Status: Acute (7) Elevated troponin: Status: Acute Additional A&P Information PIETER: renal function improving, nephrology on board Left pleural effusion Anemia: recieved 2 units of pRBC Thrombocytopenia Mild to moderate Hypernatremia Thank you for allowing me to participate in patient's care. Please feel free to call with questions or concerns Attestations Medical Necessity Statement*: Patient requires hospitalization for continued m anagement of Decompensated CHF, pericardial effusion and a. fib with RVR Time Spent in Patient Care: 16 - 35 minutes (>than 50% of time spent in counselling and/or direct pt care on unit) . Coding Level of Care Code Acute Deportation Officer for [facility] Fwd Diagnoses Hypotension I95.9 Hypotension type: unspecified hypotension type Atrial fibrillation with RVR I48.91 Acute exacerbation of CHF (congestive heart failure) I50.33 Heart failure type: diastolic Pericardial effusion without cardiac tamponade I31.3 Respiratory failure with hypoxia J96.21 Chronicity: acute on chronic Shock liver K72.00 Elevated troponin R79.89
[2020-06-22] MEDS: levothyroxine 150 mcg Tablet 225 MCG PO (09:13)
[2020-06-22] MEDS: metoprolol tartrate 25 mg Tablet 12.5 MG PO ×2 (09:16→17:30)
[2020-06-22] MEDS: amiodarone 200 mg Tablet 400 MG PO ×3 (09:17→20:18)
[2020-06-22] MEDS: folic acid 1 mg Tablet PO (09:18)
[2020-06-22] MEDS: pantoprazole DR 40 mg Tablet PO ×2 (09:18→17:30)
[2020-06-22] MEDS: magnesium oxide 400 mg tablet PO ×2 (09:19→17:30)
--- NOTE | 2020-06-22 10:10 | PC.SOCIAL ---
IMM Updated Page 2 of IMM updated with patient's daughter Constance by phone. Initialed, dated, and timed and placed in chart. Copy provided to patient's bedside.
[2020-06-22 10:29] LABS: INR 1.55 (0.8-1.2)
[2020-06-22 11:50] LABS: Glucose Point of Care 94 mg/dL (70-110)
--- NOTE | 2020-06-22 12:34 | P.PN_ITS ---
Subjective Subjective: Interval history: SOB has improved, though she is still requiring 4L oxygen though NC to maintain saturation above 90%.Have started participating in P.T.Remained Aebrile. H/R is better controlled. Other Vitals and labs have been reviewed. Vitals/I&O/Wt Last Vital Signs Temp 98.8 F 06/22/20 00:00 Pulse 104 H 06/22/20 11:06 Resp 35 H 06/22/20 10:00 BP 144/90 06/22/20 10:00 Pulse Ox 96 06/22/20 11:06 06/21/20 06/22/20 06/22/20 22:59 06:59 14:59 Intake Total 1655.65 / 1875.65 100 / 1975.65 100 / 100 Output Total 125 / 125 400 / 525 Balance 1530.65 / 1750.65 -300 / 1450.65 100 / 100 Physical Exam Const: COMMON NORMALS: patient oriented x3 HENMT: COMMON NORMALS: normocephalic, atraumatic, hearing grossly normal bilaterally and external ears normal HEAD & SCALP: normocephalic and atraumatic EXTERNAL EAR: Yes external ears normal Eye: COMMON NORMALS: no scleral icterus GENERAL EYE: appearance normal, both eyes and all related structures Chest: COMMONS NORMALS: normal inspection of the chest and normal palpation of entire chest wall CHEST: Yes Symmetrical chest wall rise Resp: COMMON NORMALS: normal respiratory effort, No retractions, No use of accessory muscles and clear to auscultation bilaterally EFFORT & INSPECTION: Yes symmetric chest movement AUSCULTATION: clear to auscultation bilaterally Cardio: COMMON NORMALS: regular rate, regular rhythm, S1 normal heart sound present, S2 normal heart sound present, No gallops present (Cardio), No murmurs present (Cardio), No rub (Cardio) and Peripheral pulses 2+ throughout RATE: regular rate RHYTHM: regular rhythm HEART SOUNDS: S1 normal heart sound present and S2 normal heart sound present PERIPHERAL PULSES: Peripheral pulses 2+ throughout OTHER: Irreularly irregular,S1S2 of variable intensity. GI: COMMON NORMALS: Normal to inspection, nondistended, normoactive bowel sounds present, Soft to palpation, non-tender, No hepatosplenomegaly present and no masses AUSCULTATION: Yes normoactive bowel sounds PALPATION: Yes Soft to palpation and Yes No hepatosplenomegaly present RECTAL EXAM: deferred Extremity: COMMON NORMALS: no clubbing, cyanosis or edema and no pedal edema NARRATIVE EXTREMITY EXAM: 2 + B/L L/E Pitting edema present. OTHER: 1-2+ edema (R>L). No signs of chronic venous insufficiency. warm extremeties Neuro: COMMON NORMALS: patient oriented x3 Urinary Catheter Management^: Boswell: Cath Placed During This Visit: yes Reason for Continuing Indwelling Catheter: Accurate Measurement of Urinary Output in Critically Ill Patients Urinary Catheter Date of Insertion: 06/15/20 Urinary Catheter Time of Insertion: 19:50 Data : 06/22/20 03:39 06/22/20 03:39 A&P Assessment and plan (1) Septic shock: -Likely secondary to acute hypoxic respiratory failure with evidence of multiorgan failure including acute renal injury, acute liver failure. Clinical suspicion for cardiogenic shock given concern for pericardial effusion, noted clinical evidence of acute CHF exacerbation -Noted resolved leukocytosis, continued pressor requirement, significant lactic acidosis trending down, continued oxygen requirement due to persistent hypoxia -daily labs -Currently on Primax , Vancomycin was DC today. -CT A/P due to multi-organ involvement to r/o additional sources of infection with no noted acute abnormalities -blood cx negative -UA indicative of infection; urine cx negative -noted evidence of small to moderate pericardial effusion per bedside US, Echo and on CT A/P -supratherapeutic INR, noted oozing from R femoral central line, thrombocytopeni a, worsening anemia; hold futher anticoagulation for now. Continue to trend coags Status: Acute (2) Respiratory failure with hypoxia: -has had some intermittent hypoxia at long-term since COVID-19 infection, was on 3 L consistently -alternating between HHFNC and BiPAP use, decreasing oxygen requirement, low th reshold for intubation -hemodynamically unstable; on pressor support, wean as tolerated -close monitoring of respiratory status and vital signs -rapid COVID-19 test negative. Recently treated for COVID-19 pneumonia requiring hospitalization -previously treated with antibiotics, has been on doxycycline and levaquin -noted PCN allergy, on empiric antibiotics (Vanc, Levaquin, Aztreonam) -blood cx: prelim negative -CXR with reported improvement in right pleural effusion, continued consolidation/pleural effusion on the left -Telemetry monitoring -afebrile, no leukocytosis, noted significant lactic acidosis with level of 7, trending down -Concern for severe sepsis as evidenced by hypoxia, tachypnea, hypotension, lactic acidosis -influenza, bacterial antigens, Legionella, MRSA negative -Boswell catheter placed for accurate Is & Os Status: Acute Qualifiers: Chronicity: acute on chronic Qualified Code(s): J96.21 - 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 (3) Shock liver: -noted significant increase in LFTs indicating acute liver failure -likely related to cardiogenic shock as noted above -has known large left hepatic lobe lesion; stable per repeat imaging -continue to trend LFTs; improving Status: Acute (4) Sepsis: -as noted above Status: Acute Qualifiers: Sepsis type: sepsis due to unspecified organism Sepsis acute organ dysfunction status: with acute organ dysfunction Severe sepsis acute organ dysfunction type: acute respiratory failure Acute respiratory failure type: with hypoxia Severe sepsis shock status: with septic shock Qualified Code(s): A41.9 - Sepsis, unspecified organism; R65.21 - Severe sepsis with septic shock; J96.01 - Acute respiratory failure with hypoxia (5) Acute kidney injury: -continued acute renal impairment -baseline Cr appears to be around 1.2-1.6 -off IV fluid hydration -Continue to monitor renal function, renally dose meds, avoid nephrotoxins -diuretics on hold due to renal impairment and hypotension -CPK wnl -nephrology consult appreciated -good urine output overnight; has Boswell catheter in place -UA with some proteinuria, blood Status: Acute (6) Acute exacerbation of CHF (congestive heart failure): -Chronic HFpEF; concern for acute exacerbation given BNP elevation (8909), LE edema part of which may be chronic -continue to hold diuretics for now due to hypotension and renal impairment. -repeat Echo: EF=55%, G2DD, small to moderate pericardial effusion but no tamponade physiology. Findings discussed with Dr. Ramsey -may need formal cardiology evaluation particularly if continued hemodynamic instability Status: Acute Qualifiers: Heart failure type: diastolic Qualified Code(s): I50.33 - Acute on chronic diastolic (congestive) heart failure (7) Elevated troponin: -noted elevated troponins with no significant delta x 2 hrs -this is likely type II due to demand ischemia secondary to severe sepsis -Echo (09/2019): EF=55%, no RWMA, biatrial enlargement, mild-moderate , mild TR. Repeat Echo noted above Status: Acute (8) Anemia: -baseline Hg is around 9 -continue to trend H/H; gradual drop and will need transfusion of blood products today with Hg down to 7 Status: Chronic Qualifiers: Anemia type: unspecified type Qualified Code(s): D64.9 - Anemia, unspecified (9) Aortic stenosis: -noted mild to moderate per last Echo (09/2019) Status: Chronic Qualifiers: Cardiac valve disease etiology: etiology unspecified Qualified Code(s): I35.0 - Nonrheumatic aortic (valve) stenosis (10) Hyperlipidemia: -on statin Status: Chronic Qualifiers: Hyperlipidemia type: unspecified Qualified Code(s): E78.5 - Hyperli pidemia, unspecified (11) Hypertension: -currently requiring pressor support; BP is improving -continue to hold oral antihypertensives Status: Chronic Qualifiers: Hypertension type: essential hypertension Qualified Code(s): I10 - Essential (primary) hypertension (12) Pulmonary embolism: -prior hx of PE, has been on AC with Eliquis -was on heparin drip; now on hold due to noted supratherapeutic INR, thrombocytopenia, worsening anemia, oozing from central line Status: Chronic Qualifiers: Pulmonary embolism type: unspecified Chronicity: chronic Acute cor pulmonale presence: unspecified Qualified Code(s): I27.82 - Chronic pulmonary embolism (13) Atrial fibrillation with RVR: Currently on Metoprolol T 25MG Q12 H Daily As well as amiodarone 400 mg Q8H Daily Status: Acute Additional A&P Information -coagulopathy likely related to liver failure and shock; elevated D-dimer; could be secondary to shock, heparin drip on hold due to noted supratherapeutic INR. Venous duplex negative for DVT, unable to get CTA due to renal impairment. Coags are trending down. Did have an episode of epistaxis today, now resolved. Monitor for further bleeding -Hyperkalemia, resolved; had been on potassium supplementation. Continue to meme tor -Morbid obesity: BMI-44 kg/m2 -hx of hypothyroidism; on levothyroxine -LE edema and ulcers; wound care as needed -thrombocytopenia; noted gradual drop in platelet count, continue to monitor, likely related to shock -hypoalbuminemia; would likely benefit from albumin but would wait with need for transfusion to prevent fluid overload. Albumin may help with hemodynamics -CLD for now due to possible need for intubation -GI ppx with PPI -DVT ppx with SCDs -Dispo: return to [facility] -Code status: FULL code; discussed with daughter in law at bedside and long-term, paperwork in chart -continue ICU due to septic shock, high risk for decompensation with possible need for intubation, need for pressor support -guarded prognosis in light of evidence of multiorgan failure Attestations Medical Necessity Statement*: Patient needs to be in hospital for the management of Heart failure exacerbation as well as sepsis 2/2 to PNA, as well as pericardial effusion and A.FIB with RVR Coding Level of Care Code Acute Sourcing Consultant for Chg Fwd Diagnoses Septic shock A41.9; R65.21 Respiratory failure with hypoxia J96.21 Chronicity: acute on chronic Shock liver K72.00 Sepsis A41.9; R65.21; J96.01 Sepsis type: sepsis due to unspecified organism Sepsis acute organ dysfunction status: with acute organ dysfunction Severe sepsis acute organ dysfunction type: acute respiratory failure Acute respiratory failure type: with hypoxia Severe sepsis shock status: with septic shock Acute kidney injury N17.9 Acute exacerbation of CHF (congestive heart failure) I50.33 Heart failure type: diastolic Elevated troponin R79.89 Anemia D64.9 Anemia type: unspecified type Aortic stenosis I35.0 Cardiac valve disease etiology: etiology unspecified Hyperlipidemia E78.5 Hyperlipidemia type: unspecified Hypertension I10 Hypertension type: essential hypertension Pulmonary embolism I27.82 Pulmonary embolism type: unspecified Chronicity: chronic Acute cor pulmonale presence: unspecified Atrial fibrillation with RVR I48.91
[2020-06-22] MEDS: bumetanide 0.25 mg/mL SDV 10 mL 1 MG IV (14:40)
--- NOTE | 2020-06-22 15:25 | PC.NURSE ---
Patient's respirations were 40 to 44 per minute, after talking with the patient we agreed to put her back on BIPAP for a while. I put her back on BIPAP and the machine came off of standby and started working again.
--- NOTE | 2020-06-22 16:35 | PC.NURSE ---
Patient's [id number] is here for a visit, so I pulled her back off of the BIPAP and back on 4L O2 for them to be able to visit.
[2020-06-22 17:03] LABS: Glucose Point of Care 86 mg/dL (70-110)
--- NOTE | 2020-06-22 17:39 | USCV_ITS ---
Krystal Andrews Age: 74 Gender: F : 1945 Exam Date: 06/22/2020 06:21 Ordering Phys: Tanisha Ramsey MD ([email or web address]) Technologist: Mart Lopez Exam Location: [facility] [place] Indication: PER EFF BP: 142 / 77 HR: 90 Rhythm: Sinus Technical Quality: Fair MEASUREMENTS (Male / Female) Normal Values 2D ECHO LV Diastolic Diameter PLAX 3.4 cm 4.2 - 5.9 / 3.9 - 5.3 cm LV Systolic Diameter PLAX 2.1 cm IVS Diastolic Thickness 1.2 cm 0.6 - 1.0 / 0.6 - 0.9 cm IVS Systolic Thickness 1.6 cm LVPW Diastolic Thickness 1.1 cm 0.6 - 1.0 / 0.6 - 0.9 cm LVPW Systolic Thickness 1.3 cm LVOT Diameter 2.1 cm LV Ejection Fraction 2D Teich 68.3 % LV Ejection Fraction MOD 2C 40.4 % LV Ejection Fraction 2C AL 40.9 % LA Diameter 4.6 cm LA Width 4.0 cm LA Height 5.1 cm RA Width 3.8 cm RA Height 5.2 cm M-MODE LV Diastolic Diameter MM 4.5 cm 4.2 - 5.9 / 3.9 - 5.3 cm LV Systolic Diameter MM 2.8 cm LV Ejection Fraction MM Teich 67.1 % IVS Diastolic Thickness MM 1.3 cm 0.6 - 1.0 / 0.6 - 0.9 cm IVS Systolic Thickness MM 1.9 cm LVPW Diastolic Thickness MM 1.2 cm 0.6 - 1.0 / 0.6 - 0.9 cm LVPW Systolic Thickness MM 1.9 cm RV Diastolic Diameter MM 1.6 cm Aortic Annulus Diameter 4.0 cm LA Ao Ratio MM 1.2 MV E Point Septal Separation 1.3 cm DOPPLER PV Peak Velocity 125.0 cm/s FINDINGS Left Ventricle Normal left ventricular size and systolic function with no diagnsotic regional wall motion abnormalities. Left ventricular ejection fraction is estimated at 60 %. Right Ventricle Normal right ventricular size and systolic function. Right Atrium Moderately increased right atrial size. Left Atrium Moderately increased left atrial size. Mitral Valve Moderately thickened mitral valve. Moderate mitral annular calcification. Aortic Valve Moderately thickened and calcified aortic valve. Tricuspid Valve Structurally normal tricuspid valve. Mild tricuspid valve regurgitation. Pulmonic Valve Pulmonic valve not well visualized. Pericardium Moderate circumferential pericardial effusion. No evidence of tamponade physiology. Aorta Normal sized aortic root. CONCLUSIONS 1. This is a limited study. 2. Normal left ventricular size and systolic function with no diagnsotic regional wall motion abnormalities. Left ventricular ejection fraction is estimated at 60 %. 3. Moderate circumferential pericardial effusion. No evidence of tamponade physiology. Tanisha Ramsey MD (Electronically Signed) Final Date: 22 June 2020 16:37 S
[2020-06-22] MEDS: acetaminophen 325 mg Tablet 650 MG PO (19:35)
[2020-06-22] MEDS: atorvastatin 40 mg Tablet PO (20:18)
[2020-06-22] MEDS: morphine 4 mg/mL SDV 1 mL 2 MG IVP (20:18)
[2020-06-22] MEDS: zolpidem 5 mg Tablet PO (21:44)
[2020-06-23] VITALS (34 sets, daily range): BP systolic 86–139; BP diastolic 60–103; PULSE 72–105; RESP 16–44; TEMP 37.1; O2SAT 92–100
[2020-06-23] MEDS: morphine 4 mg/mL SDV 1 mL 2 MG IVP ×4 (00:37→23:39)
[2020-06-23 05:06] LABS: Basophils % 0.7 %; Eosinophils # 0.2 10^3/uL (0.0-0.8); Eosinophils % 4.2 %; Hematocrit 33.6 % (37.0-47.0); Hemoglobin 9.3 g/dL (11.5-15.3); Lymphocytes # 0.6 10^3/uL (0.8-4.8); Lymphocytes % 14.4 %; Mean Corpuscular HGB Conc 27.7 g/dL (30.0-36.0); Mean Corpuscular Hemoglobin 26.5 pg (28.0-34.0); Mean Corpuscular Volume 95.7 fL (81-99); Monocytes # 0.6 10^3/uL (0.2-0.9); Monocytes % 15.3 %; Neutrophils # 2.62 10^3/uL (1.8-7.7); Neutrophils % 64.9 %; Nucleated Red Blood Cells % 0 %; Platelet Count 62 10^3/cmm (130-400); Red Blood Count 3.51 10^6/uL (4.1-5.3); Red Cell Distribution Width 21.1 % (12.1-15.1)
[2020-06-23 05:46] LABS: Alanine Aminotransferase 183 U/L (0-33); Albumin Level 2.5 g/dL (3.5-5.2); Alkaline Phosphatase 141 IU/L (35-105); Anion Gap 12.9 (5-19); Aspartate Amino Transferase 21 U/L (0-32); Blood Urea Nitrogen 29 mg/dL (8-23); Carbon Dioxide 26 mmol/L (22-29); Chloride 112 mmol/L (98-107); Globulin 2.9 g/dL (1.3-4.6); Glucose 88 mg/dL (65-115); Magnesium 1.9 mg/dL (1.7-2.3); Osmolality Calculated 309 mOsm/kg (285-295); Phosphorus 2.7 mg/dL (2.5-4.5); Potassium 3.9 mmol/L (3.5-5.1); Sodium 147 mmol/L (136-145); Total Bilirubin 0.9 mg/dL (0.15-1.2); Total Protein 5.4 g/dL (6.6-8.7)
--- NOTE | 2020-06-23 06:00 | XR_ITS ---
WS: [id number] Portable AP upright chest, 06/23/2020 Clinical Data: PNA Comparison: Portable chest, 06/21/2020. Findings: The heart remains massively enlarged. Bilateral lower lobe opacities remain unchanged. Ther e is a small right-sided effusion. There is probably consolidation behind the left heart. The upper l obes are clear. The aortic arch and descending aorta show calcification and tortuosity. Monitor leads are on the chest wall. XR/XR chest 1V portable [id number] Impression: No change from chest x-ray of 2 days ago.
[2020-06-23 07:07] LABS: Digoxin 1.3 ng/mL (0.6-1.2)
[2020-06-23 07:11] LABS: Vancomycin Trough 26.2 ug/mL (10-15)
[2020-06-23 07:25] LABS: Glucose Point of Care 87 mg/dL (70-110)
[2020-06-23] MEDS: acetylcysteine 200 mg/mL SDV 4 mL 100 MG INHALATION ×3 (08:28→21:00)
[2020-06-23] MEDS: ipratropium-albuterol 3 mL Neb INHALATION ×3 (08:28→21:00)
--- NOTE | 2020-06-23 09:21 | PC.NURSE ---
Versed GIven 2mg IVP versed given at this time per DR Sánchez verbal orders d/t pt agitation.
[2020-06-23] MEDS: amiodarone 200 mg Tablet 400 MG PO ×4 (10:09→21:03)
[2020-06-23] MEDS: pantoprazole DR 40 mg Tablet PO ×2 (10:10→19:03)
[2020-06-23] MEDS: magnesium oxide 400 mg tablet PO ×2 (10:10→19:02)
[2020-06-23] MEDS: folic acid 1 mg Tablet PO (10:10)
[2020-06-23] MEDS: metoprolol tartrate 25 mg Tablet PO ×2 (10:11→19:03)
[2020-06-23] MEDS: levothyroxine 150 mcg Tablet 225 MCG PO (10:11)
--- NOTE | 2020-06-23 11:15 | CTR_ITS ---
PROCEDURE INFORMATION: Exam: CT Chest Without Contrast Exam date and time: 06/23/2020 6:38 PM Age: 74 years old Clinical indication: Abnormal findings; Abnormal radiologic exam of lung or chest; Patient HX: Bll infiltrates; Additional info: Pna TECHNIQUE: Imaging protocol: Computed tomography of the chest without contrast. Radiation optimization: All CT scans at this facility use at least one of these dose optimization techniques: automated exposure control; mA and/or kV adjustment per patient size (includes targeted exams where dose is matched to clinical indication); or iterative reconstruction. COMPARISON: CT chest con [id number] 06/18/2020 5:23 PM RADIATION DOSE METRICS: Total DLP (mGy-cm): 804.27 FINDINGS: Lungs: There is compressive atelectasis of both lower lobes and some portions of the posterior aspect of the left upper lobe. Pleural space: There are moderate bilateral pleural effusions. Pleural effusions are slightly larger than on the the previous examination. Heart: The heart is moderately enlarged. There is a large pericardial fluid collection present. Pericardial effusion measures up to 2 cm in thickness. Aorta: There is atherosclerotic change in the aortic arch and descending thoracic aorta. Lymph nodes: Unremarkable. No enlarged lymph nodes. Intraperitoneal space: Some fluid is also seen tracking in the major fissure on the right. Bones/joints: There is mild scoliosis concave to the left. Soft tissues: Unremarkable. CT/CT chest con [id number] IMPRESSION: 1. Bilateral pleural effusions. 2. Cardiomegaly. 3. Pericardial effusion. 4. Bilateral compressive atelectasis. Radiation Dose CTDIVOL = (mGy): DLP = 804.27 (mGy-cm)
--- NOTE | 2020-06-23 13:23 | P.PN_ITS ---
Subjective Subjective: Interval history: Patient has improved a lot.H/R has improved a lot, it is well controlled ( mostly in low 100s).B/P is well controlled. Good Urine output. Has been out of bed for most part of the day. Other vitals and labs have been reviewed. Medications: Reviewed: Yes Medication Review Details: Current Medications Acetaminophen (Acetaminophen 325 Mg Tablet) 650 mg PO Q6H PRN PRN Reason: MILD PAIN Last Admin: 06/22/20 19:35 Dose: 650 mg Documented by: Acetaminophen (Tylenol) [address] Q6H PRN PRN Reason: FEVER Acetylcysteine (Acetylcysteine 200 Mg/Ml Sdv 4 Ml) 100 mg INHALATION TID [facility] Last Admin: 06/23/20 16:08 Dose: 100 mg Documented by: Albuterol Sulfate (Ventolin) 2 puff INHALATION Q4H.RESPIRATORY PRN PRN Reason: SHORTNESS OF BREATH Albuterol/Ipratropium (Ipratropium-Albuterol 3 Ml Neb) 3 ml INHALATION TID [facility] Last Admin: 06/23/20 16:08 Dose: 3 ml Documented by: Amiodarone HCl (Amiodarone 200 Mg Tablet) 400 mg PO TID [facility] Last Admin: 06/23/20 14:57 Dose: 400 mg Documented by: Apixaban (Apixaban 5 Mg Tablet) 5 mg PO BID [facility] Atorvastatin Calcium (Lipitor) 40 mg PO BEDTIME [facility] Last Admin: 06/22/20 20:18 Dose: 40 mg Documented by: Bisacodyl (Bisac-Evac) [address] DAILY PRN PRN Reason: Constipation Dextrose (D50w) 25 ml IVP ONCE PRN; Protocol PRN Reason: hypoglycemia protocol Last Admin: 06/15/20 23:03 Dose: 25 ml Documented by: Dextrose (D50w) 50 ml IVP PRN PRN; Protocol PRN Reason: hypoglycemia protocol Folic Acid (Folic Acid) 1 mg PO DAILY [facility] Last Admin: 06/23/20 10:10 Dose: 1 mg Documented by: Glucagon (Glucagen) 1 mg IM ONCE PRN; Protocol PRN Reason: Adult Acute Hypoglycemia Prot. Dextrose (D5w) 500 mls @ 100 mls/hr IV ONCE PRN; Protocol PRN Reason: Adult Acute Hypoglycemia Prot Norepinephrine Bitartrate 4 mg (/ Dextrose) 254 mls @ 0 mls/hr IV .Q0M [facility]; Protocol Last Titration: 06/19/20 07:00 Dose: 0 mcg/min, 0 mls/hr Documented by: Imipenem/Cilastatin Sodium 500 (mg/ Sodium Chloride) 100 mls @ 200 mls/hr IV Q6H [facility] Last Admin: 06/23/20 14:57 Dose: 200 mls/hr Documented by: Levothyroxine Sodium (Synthroid) 225 mcg PO DAILY [facility] Last Admin: 06/23/20 10:11 Dose: 225 mcg Documented by: Lorazepam (Lorazepam 2 Mg/Ml Inj 1 Ml) 1 mg IVP Q6H PRN PRN Reason: ANXIETY Last Admin: 06/21/20 01:44 Dose: 1 mg Documented by: Magnesium Oxide (Magnesium Oxide 400 Mg Tablet) 400 mg PO BID [facility] Last Admin: 06/23/20 10:10 Dose: 400 mg Documented by: Metoprolol Tartrate (Metoprolol Tartrate 25 Mg Tablet) 25 mg PO BID [facility] Last Admin: 06/23/20 10:11 Dose: 25 mg Documented by: Morphine Sulfate (Morphine 4 Mg/Ml Sdv 1 Ml) 2 mg IVP Q4H PRN PRN Reason: SEVERE PAIN Last Admin: 06/23/20 05:13 Dose: 2 mg Documented by: Nystatin (Nystatin Powder 15 Gm Btl) 1 applic TOPICAL BID PRN PRN Reason: under folds Ondansetron HCl (Zofran) 4 mg IVP Q6H PRN PRN Reason: NAUSEA AND VOMITING Pantoprazole Sodium (Pantoprazole Dr 40 Mg Tablet) 40 mg PO BID [facility] Last Admin: 06/23/20 10:10 Dose: 40 mg Documented by: Zolpidem Tartrate (Zolpidem 5 Mg Tablet) 5 mg PO BEDTIME PRN PRN Reason: INSOMNIA Last Admin: 06/22/20 21:44 Dose: 5 mg Documented by: Vitals/I&O/Wt Last Vital Signs Temp 98.8 F 06/22/20 00:00 Pulse 93 06/23/20 10:00 Resp 35 H 06/23/20 10:00 BP 126/81 06/23/20 10:00 Pulse Ox 98 06/23/20 10:00 06/22/20 06/23/20 06/23/20 22:59 06:59 14:59 Intake Total 450 / 870 100 / 970 120 / 120 Output Total 650 / 1075 Balance 450 / 445 -550 / -105 120 / 120 Physical Exam Const: COMMON NORMALS: patient oriented x3 HENMT: COMMON NORMALS: normocephalic, atraumatic, hearing grossly normal bilaterally and external ears normal HEAD & SCALP: normocephalic and atraumatic EXTERNAL EAR: Yes external ears normal Eye: COMMON NORMALS: no scleral icterus GENERAL EYE: appearance normal, both eyes and all related structures Chest: COMMONS NORMALS: normal inspection of the chest and normal palpation of entire chest wall CHEST: Yes Symmetrical chest wall rise Resp: COMMON NORMALS: normal respiratory effort, No retractions, No use of accessory muscles and clear to auscultation bilaterally EFFORT & INSPECTION: Yes symmetric chest movement AUSCULTATION: clear to auscultation bilaterally Cardio: COMMON NORMALS: regular rate, regular rhythm, S1 normal heart sound present, S2 normal heart sound present, No gallops present (Cardio), No murmurs present (Cardio), No rub (Cardio) and Peripheral pulses 2+ throughout RATE: regular rate RHYTHM: regular rhythm HEART SOUNDS: S1 normal heart sound present and S2 normal heart sound present PERIPHERAL PULSES: Peripheral pulses 2+ throughout OTHER: Irreularly irregular,S1S2 of variable intensity. GI: COMMON NORMALS: Normal to inspection, nondistended, normoactive bowel sounds present, Soft to palpation, non-tender, No hepatosplenomegaly present and no masses AUSCULTATION: Yes normoactive bowel sounds PALPATION: Yes Soft to palpation and Yes No hepatosplenomegaly present RECTAL EXAM: deferred Extremity: COMMON NORMALS: no clubbing, cyanosis or edema and no pedal edema NARRATIVE EXTREMITY EXAM: 2 + B/L L/E Pitting edema present. OTHER: 2 + B/L Pitting L/E Edema Present Neuro: COMMON NORMALS: patient oriented x3 Urinary Catheter Management^: Boswell: Cath Placed During This Visit: yes Reason for Continuing Indwelling Catheter: Accurate Measurement of Urinary Output in Critically Ill Patients Urinary Catheter Date of Insertion: 06/15/20 Urinary Catheter Time of Insertion: 19:50 Data : 06/23/20 04:31 06/23/20 04:31 Micro: Microbiology 06/22/20 04:00 Catheter Tip Culture - Preliminary Central Line A&P Assessment and plan (1) Septic shock: -Resolved -Likely secondary to acute hypoxic respiratory failure with evidence of multiorgan failure including acute renal injury, acute liver failure. Clinical suspicion for cardiogenic shock given concern for pericardial effusion, noted clinical evidence of acute CHF exacerbation -Noted resolved leukocytosis, continued pressor requirement, significant lactic acidosis trending down, continued oxygen requirement due to persistent hypoxia -daily labs -Currently on Primax , Vancomycin was DC today. -CT A/P due to multi-organ involvement to r/o additional sources of infection with no noted acute abnormalities -blood cx negative -UA indicative of infection; urine cx negative -noted evidence of small to moderate pericardial effusion per bedside US, Echo and on CT A/P -supratherapeutic INR, noted oozing from R femoral central line, thrombocytopenia, worsening anemia; hold futher anticoagulation for now. Continue to trend coags Status: Acute (2) Respiratory failure with hypoxia: -has had some intermittent hypoxia at assisted since COVID-19 infection, was on 3 L consistently -alternating between HHFNC and BiPAP use, decreasing oxygen requirement, low threshold for intubation -hemodynamically unstable; on pressor support, wean as tolerated -close monitoring of respiratory status and vital signs -rapid COVID-19 test negative. Recently treated for COVID-19 pneumonia requiring hospitalization -previously treated with antibiotics, has been on doxycycline and levaquin -noted PCN allergy, on empiric antibiotics (Vanc, Levaquin, Aztreonam) -blood cx: prelim negative -CXR with reported improvement in right pleural effusion, continued c onsolidation/pleural effusion on the left -Telemetry monitoring -afebrile, no leukocytosis, noted significant lactic acidosis with level of 7, trending down -Concern for severe sepsis as evidenced by hypoxia, tachypnea, hypotension, lactic acidosis -influenza, bacterial antigens, Legionella, MRSA negative -Boswell catheter placed for accurate Is & Os Status: Acute Qualifiers: Chronicity: acute on chronic Qualified Code(s): J96.21 - Acute and chronic respiratory failure with hypoxia (3) Shock liver: - Is on the way to resolving. -Earlier significant increase in LFTs indicating acute liver failure -likely related to cardiogenic shock as noted above -has known large left hepatic lobe lesion; stable per repeat imaging -continue to trend LFTs; improving Status: Acute (4) Sepsis: -as noted above Status: Acute Qualifiers: Sepsis type: sepsis due to unspecified organism Sepsis acute organ dysfunction status: with acute organ dysfunction Severe sepsis acute organ dysfunction type: acute respiratory failure Acute respiratory failure type: with hypoxia Severe sepsis shock status: with septic shock Qualified Code(s): A41.9 - Sepsis, unspecified organism; R65.21 - Severe sepsis with septic shock; J96.01 - Acute respiratory failure with hypoxia (5) Acute kidney injury: -Resolved -baseline Cr appears to be around 1.2-1.6 -off IV fluid hydration -Continue to monitor renal function, renally dose meds, avoid nephrotoxins -CPK wnl -nephrology consult appreciated -good urine output overnight; has Boswell catheter in place -UA with some proteinuria, blood Status: Acute (6) Acute exacerbation of CHF (congestive heart failure): -Chronic HFpEF; concern for acute exacerbation given BNP elevation (8909), LE edema part of which may be chronic -continue to hold diuretics for now due to hypotension and renal impairment. -repeat Echo: EF=55%, G2DD, small to moderate pericardial effusion but no tamponade physiology. Findings discussed with Dr. Ramsey -may need formal cardiology evaluation particularly if continued hemodynamic instability Status: Acute Qualifiers: Heart failure type: diastolic Qualified Code(s): I50.33 - Acute on chronic diastolic (congestive) heart failure (7) Elevated troponin: -noted elevated troponins with no significant delta x 2 hrs -this is likely type II due to demand ischemia secondary to severe sepsis -Echo (09/2019): EF=55%, no RWMA, biatrial enlargement, mild-moderate , mild TR. Repeat Echo noted above Status: Acute (8) Anemia: -baseline Hg is around 9 -continue to trend H/H; Status: Chronic Qualifiers: Anemia type: unspecified type Qualified Code(s): D64.9 - Anemia, unspecified (9) Aortic stenosis: -noted mild to moderate per last Echo (09/2019) Status: Chronic Qualifiers: Cardiac valve disease etiology: etiology unspecified Qualified Code(s): I35.0 - Nonrheumatic aortic (valve) stenosis (10) Hyperlipidemia: -on statin Status: Chronic Qualifiers: Hyperlipidemia type: unspecified Qualified Code(s): E78.5 - Hyperlipidemia, unspecified (11) Hypertension: Metoprolol.T 25 MG Q12 H Daily Status: Chronic Qualifiers: Hypertension type: essential hypertension Qualified Code(s): I10 - Essential (primary) hypertension (12) Pulmonary embolism: -Prior hx of PE -On Eliquis Status: Chronic Qualifiers: Pulmonary embolism type: unspecified Chronicity: chronic Acute cor pulmonale presence: unspecified Qualified Code(s): I27.82 - Chronic pulmonary embolism (13) Atrial fibrillation with RVR: Currently on Metoprolol T 25MG Q12 H Daily As well as amiodarone 400 mg Q8H Daily was changed to 400 mg q12 h from 06/24. Status: Acute (14) Pericardial effusion: Without Tamponade physiology.Has been monitored with serial echo. Intervention cardiology has been consulted for the same and he is of the opinion to monitor it for now. Status: Acute Additional A&P Information -coagulopathy likely related to liver failure and shock; elevated D-dimer; could be secondary to shock, heparin drip on hold due to noted supratherapeutic INR. Venous duplex negative for DVT, unable to get CTA due to renal impairment. Coags are trending down. Did have an episode of epistaxis today, now resolved. Monitor for further bleeding -Hyperkalemia, resolved; had been on potassium supplementation. Continue to monitor -Morbid obesity: BMI-44 kg/m2 -hx of hypothyroidism; on levothyroxine -LE edema and ulcers; wound care as needed -thrombocytopenia; noted gradual drop in platelet count, continue to monitor, likely related to shock -hypoalbuminemia; would likely benefit from albumin but would wait with need for transfusion to prevent fluid overload. Albumin may help with hemodynamics -GI ppx with PPI -DVT ppx with SCDs -Dispo: return to [facility] -Code status: FULL code; discussed with daughter in law at bedside and assisted, paperwork in chart -continue ICU due to septic shock, high risk for decompensation with possible need for intubation, need for pressor support -guarded prognosis in light of evidence of multiorgan failure Attestations Medical Necessity Statement*: Patient needs to be in hospital for the management of sepsis, a.fib, pericardial effusion, heart failure. 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[employer] Diagnoses Septic shock A41.9; R65.21 Respiratory failure with hypoxia J96.21 Chronicity: acute on chronic Shock liver K72.00 Sepsis A41.9; R65.21; J96.01 Sepsis type: sepsis due to unspecified organism Sepsis acute organ dysfunction status: with acute organ dysfunction Severe sepsis acute organ dysfunction type: acute respiratory failure Acute respiratory failure type: with hypoxia Severe sepsis shock status: with septic shock Acute kidney injury N17.9 Acute exacerbation of CHF (congestive heart failure) I50.33 Heart failure type: diastolic Elevated troponin R79.89 Anemia D64.9 Anemia type: unspecified type Aortic stenosis I35.0 Cardiac valve disease etiology: etiology unspecified Hyperlipidemia E78.5 Hyperlipidemia type: unspecified Hypertension I10 Hypertension type: essential hypertension Pulmonary embolism I27.82 Pulmonary embolism type: unspecified Chronicity: chronic Acute cor pulmonale presence: unspecified Atrial fibrillation with RVR I48.91 Pericardial effusion I31.3
--- NOTE | 2020-06-23 17:11 | P.PN_ITS ---
Subjective Subjective: Interval history: She was out of bed in chair today. Medications: Reviewed: Yes Medication Review Details: Current Medications Acetaminophen (Acetaminophen 325 Mg Tablet) 650 mg PO Q6H PRN PRN Reason: MILD PAIN Last Admin: 06/22/20 19:35 Dose: 650 mg Documented by: Acetaminophen (Tylenol) 650 mg [place] Q6H PRN PRN Reason: FEVER Acetylcysteine (Acetylcysteine 200 Mg/Ml Sdv 4 Ml) 100 mg INHALATION TID [facility] Last Admin: 06/23/20 16:08 Dose: 100 mg Documented by: Albuterol Sulfate (Ventolin) 2 puff INHALATION Q4H.RESPIRATORY PRN PRN Reason: SHORTNESS OF BREATH Albuterol/Ipratropium (Ipratropium-Albuterol 3 Ml Neb) 3 ml INHALATION TID [facility] Last Admin: 06/23/20 16:08 Dose: 3 ml Documented by: Amiodarone HCl (Amiodarone 200 Mg Tablet) 400 mg PO TID [facility] Last Admin: 06/23/20 14:57 Dose: 400 mg Documented by: Apixaban (Apixaban 5 Mg Tablet) 5 mg PO BID [facility] Atorvastatin Calcium (Lipitor) 40 mg PO BEDTIME [facility] Last Admin: 06/22/20 20:18 Dose: 40 mg Documented by: Bisacodyl (Bisac-Evac) 10 mg [place] DAILY PRN PRN Reason: Constipation Dextrose (D50w) 25 ml IVP ONCE PRN; Protocol PRN Reason: hypoglycemia protocol Last Admin: 06/15/20 23:03 Dose: 25 ml Documented by: Dextrose (D50w) 50 ml IVP PRN PRN; Protocol PRN Reason: hypoglycemia protocol Folic Acid (Folic Acid) 1 mg PO DAILY [facility] Last Admin: 06/23/20 10:10 Dose: 1 mg Documented by: Glucagon (Glucagen) 1 mg IM ONCE PRN; Protocol PRN Reason: Adult Acute Hypoglycemia Prot. Dextrose (D5w) 500 mls @ 100 mls/hr IV ONCE PRN; Protocol PRN Reason: Adult Acute Hypoglycemia Prot Norepinephrine Bitartrate 4 mg (/ Dextrose) 254 mls @ 0 mls/hr IV .Q0M [facility]; Protocol Last Titration: 06/19/20 07:00 Dose: 0 mcg/min, 0 mls/hr Documented by: Imipenem/Cilastatin Sodium 500 (mg/ Sodium Chloride) 100 mls @ 200 mls/hr IV Q6H [facility] Last Admin: 06/23/20 14:57 Dose: 200 mls/hr Documented by: Levothyroxine Sodium (Synthroid) 225 mcg PO DAILY [facility] Last Admin: 06/23/20 10:11 Dose: 225 mcg Documented by: Lorazepam (Lorazepam 2 Mg/Ml Inj 1 Ml) 1 mg IVP Q6H PRN PRN Reason: ANXIETY Last Admin: 06/21/20 01:44 Dose: 1 mg Documented by: Magnesium Oxide (Magnesium Oxide 400 Mg Tablet) 400 mg PO BID [facility] Last Admin: 06/23/20 10:10 Dose: 400 mg Documented by: Metoprolol Tartrate (Metoprolol Tartrate 25 Mg Tablet) 25 mg PO BID [facility] Last Admin: 06/23/20 10:11 Dose: 25 mg Documented by: Morphine Sulfate (Morphine 4 Mg/Ml Sdv 1 Ml) 2 mg IVP Q4H PRN PRN Reason: SEVERE PAIN Last Admin: 06/23/20 05:13 Dose: 2 mg Documented by: Nystatin (Nystatin Powder 15 Gm Btl) 1 applic TOPICAL BID PRN PRN Reason: under folds Ondansetron HCl (Zofran) 4 mg IVP Q6H PRN PRN Reason: NAUSEA AND VOMITING Pantoprazole Sodium (Pantoprazole Dr 40 Mg Tablet) 40 mg PO BID [facility] Last Admin: 06/23/20 10:10 Dose: 40 mg Documented by: Zolpidem Tartrate (Zolpidem 5 Mg Tablet) 5 mg PO BEDTIME PRN PRN Reason: INSOMNIA Last Admin: 06/22/20 21:44 Dose: 5 mg Documented by: Vitals/I&O/Wt Last Vital Signs Temp 98.7 F 06/23/20 14:00 Pulse 77 06/23/20 16:11 Resp 16 06/23/20 16:08 BP 139/103 06/23/20 16:00 Pulse Ox 96 06/23/20 16:08 06/23/20 06/23/20 06/23/20 06:59 14:59 22:59 Intake Total 100 / 970 270 / 270 Output Total 650 / 1075 Balance -550 / -105 270 / 270 Physical Exam Narrative: EXAM NARRATIVE: EXAM NARRATIVE: GENERAL:obese lady sitting propped up in bed; currently on 4 L of O2 HEENT: Pupils equal round reactive to light. Mild pallor or icterus. NECK: JVD not appreciated, No carotid bruit. CARDIOVASCULAR SYSTEM: S1-S2 irregular. tachycardia+ ;No murmur rubs or gallops. RESPIRATORY SYSTEM:tachypnea+ Decreased breath sounds on left > right side No wheezes rhonchi or rubs heard. EXTREMITIES: No cyanosis. trace edema. 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 SKIN: left mid abad erythema+ Urinary Catheter Management^: Boswell: Cath Placed During This Visit: yes Reason for Continuing Indwelling Catheter: Accurate Measurement of Urinary Output in Critically Ill Patients Urinary Catheter Date of Insertion: 06/15/20 Urinary Catheter Time of Insertion: 19:50 Data : 06/23/20 04:31 06/23/20 04:31 Micro: Microbiology 06/22/20 04:00 Catheter Tip Culture - Preliminary Central Line A&P Assessment and plan (1) Respiratory failure with hypoxia: Likely a mix of PNA and dCHF; bilateral pleural effusion with Right lower lung consolidation. On empiric broad spectrum antibiotics. Chest PT and management per primary and pulmonary team. Status: Acute Qualifiers: Chronicity: acute on chronic Qualified Code(s): J96.21 - Acute and chronic respiratory failure with hypoxia (2) Atrial fibrillation with RVR: -RVR resolved Patient is off cardizem drip and digoxin. -She has a history of chronic anemia requiring intermittent blood transfusion with negative prior work-up. -change amiodarone to 400 BID starting tomorrow. -continue metoprolol tartrate 25 mg PO BID and Eliquis. Status: Acute (3) Acute exacerbation of CHF (congestive heart failure): Received albumin today. Would benefit from another dose of bumex later today. 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 -No evidence of tamponade physiology presently. -I discussed her case with Dr. Ureña in detail and decision was made to hold off on tap presently in absence of tamponade physiology. - I had a long discussion with the patient's daughter Constance and updated her of patient's current status. All her questions were appropriately answered. Status: Acute (5) Shock liver: liver enzymes improving Status: Acute (6) Elevated troponin: Status: Acute (7) Hypotension: Hypotension likely a mix of A. fib with RVR and medication induced. -Underlying sepsis is a possibility. She is off Levophed and diltiazem. -resolved. -She is maintaining her MAP more than 65 mmHg. Status: Acute Qualifiers: Hypotension type: unspecified hypotension type Qualified Code(s): I95.9 - Hypotension, unspecified Additional A&P Information PIETER: renal function improving, nephrology on board Left pleural effusion Anemia: recieved 2 units of pRBC Thrombocytopenia Mild to moderate Hypernatremia Possible PNA Thank you for allowing me to participate in patient's care. Please feel free to call with questions or concerns Attestations Medical Necessity Statement*: Patient requires hospitalization for continued management of respiratory failure, CHF, pericardial effusion and a. fib. Time Spent in Patient Care: 16 - 35 minutes (>than 50% of time spent in counselling and/or direct pt care on unit) . 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
[2020-06-23] MEDS: apixaban 5 mg Tablet PO (19:02)
[2020-06-23] MEDS: zolpidem 5 mg Tablet PO (20:43)
[2020-06-23] MEDS: atorvastatin 40 mg Tablet PO (21:03)
[2020-06-24] VITALS (22 sets, daily range): BP systolic 94–130; BP diastolic 48–93; PULSE 73–123; RESP 16–44; TEMP 36.5–37.1; O2SAT 95–100
[2020-06-24] MEDS: HYDROmorphone 1 mg/mL INJ 1 mL IVP (02:16)
[2020-06-24 03:51] LABS: Basophils % 0.8 %; Eosinophils # 0.2 10^3/uL (0.0-0.8); Eosinophils % 3.6 %; Hematocrit 36.3 % (37.0-47.0); Lymphocytes # 0.7 10^3/uL (0.8-4.8); Lymphocytes % 13.5 %; Mean Corpuscular HGB Conc 27.5 g/dL (30.0-36.0); Mean Corpuscular Hemoglobin 26.3 pg (28.0-34.0); Mean Corpuscular Volume 95.5 fL (81-99); Mean Platelet Volume 11.7 fL (7.4-10.4); Monocytes # 0.8 10^3/uL (0.2-0.9); Monocytes % 15.7 %; Neutrophils # 3.48 10^3/uL (1.8-7.7); Nucleated Red Blood Cells % 0 %; Platelet Count 80 10^3/cmm (130-400); Red Cell Distribution Width 21.3 % (12.1-15.1); White Blood Count 5.3 10^3/uL (4.0-10.0)
[2020-06-24] MEDS: morphine 4 mg/mL SDV 1 mL 2 MG IVP (04:08)
[2020-06-24 04:28] LABS: Alanine Aminotransferase 138 U/L (0-33); Albumin Level 2.9 g/dL (3.5-5.2); Alkaline Phosphatase 149 IU/L (35-105); Blood Urea Nitrogen 29 mg/dL (8-23); Calcium 8.4 mg/dL (8.5-10.5); Carbon Dioxide 27 mmol/L (22-29); Chloride 110 mmol/L (98-107); Globulin 3.1 g/dL (1.3-4.6); Glucose 108 mg/dL (65-115); Osmolality Calculated 308 mOsm/kg (285-295); Phosphorus 3.1 mg/dL (2.5-4.5); Sodium 146 mmol/L (136-145)
[2020-06-24 04:51] LABS: Anion Gap 13.3 (5-19); Aspartate Amino Transferase 27 U/L (0-32); Potassium 4.3 mmol/L (3.5-5.1)
[2020-06-24 07:20] LABS: Glucose Point of Care 79 mg/dL (70-110)
[2020-06-24 07:24] LABS: Glucose Point of Care 91 mg/dL (70-110)
[2020-06-24 07:24] LABS: Glucose Point of Care 112 mg/dL (70-110)
[2020-06-24] MEDS: ipratropium-albuterol 3 mL Neb INHALATION ×3 (08:48→20:03)
[2020-06-24] MEDS: FUROsemide 10 mg/mL SDV 4mL 40 MG IVP (09:14)
[2020-06-24] MEDS: pantoprazole DR 40 mg Tablet PO ×2 (09:15→18:27)
[2020-06-24] MEDS: magnesium oxide 400 mg tablet PO ×2 (09:15→18:27)
[2020-06-24] MEDS: amiodarone 200 mg Tablet 400 MG PO ×2 (09:15→18:27)
[2020-06-24] MEDS: levothyroxine 150 mcg Tablet 225 MCG PO (09:15)
[2020-06-24] MEDS: metoprolol tartrate 25 mg Tablet PO ×2 (09:15→18:27)
[2020-06-24] MEDS: folic acid 1 mg Tablet PO (09:15)
[2020-06-24] MEDS: apixaban 5 mg Tablet PO ×2 (09:16→18:27)
--- NOTE | 2020-06-24 10:12 | PC.SOCIAL ---
IMM Updated Updated pt on Pg 2 IMM. No questions voiced. Provided pt a copy. Signed, dated, & timed copy in chart.
--- NOTE | 2020-06-24 10:18 | PC.CHAP ---
Pastoral Care Encounter/Spiritual Assessment Type of Contact [] Declined textile engineer visit [] Patient/Family/Request visit [] Outpatient visit [] Follow-up visit [] Physician referral [] Code/Alert [] Routine visit [X] Staff referral [] Actively dying [] Patient sleeping [] Family support [] [] Out of room [] Palliative care [] [] Receiving care in room [] Pre-surgical visit [] Trauma [] Long length of stay [] ICU visit [] Other: Relational/Emotional Strength [X] Patient feels connected with others/family/visitors/staff [] Distress [] Loneliness/isolation [] Abandonment Spirituality of Patient [] Person of Tenisha [] Attends Yarsanism of their Tenisha [X] Believes in Prayer [] Reads Bible or Alevism materials [] There are Spiritual issues to be addressed Crop Puller Interventions [X] Prayer [X] Active listening [] Non-anxious presence [] Spiritual/emotional support [] Crisis/trauma care [] Spiritual counseling [] Bereavement support [] Provided bereavement packet [] Provided Bible/devotional materials [] Provided toy/stuffed animal, coloring book to patient or family member [] Provided Communion [] Anointing/[place] [] Salvation [X] Completed spiritual assessment [X] Other: advocacy Impact on Illness or Injury [] Angry [] Fearful [X] Anxious [] Often cries [] Exhaustion [] Unable to work [] Unable to attend buddhism [] Unable to walk/stand [] Unable to read [] Unable to drive [] Unable to eat/drink [] Unable to sleep [] Unable to be with family [] Patient intubated [] Other: Summary: Pt has histor of a stroke and was receiving therapy at the skilled nursing. She developed COVID and this has set her back in terms of progress due to weakness. She's very concerned that she won't be able to continue therapy or make progress. I suspect that some of her perseveration on this concern is due to cognitive effects of the stroke, perhaps. Regardless, that is her priority. I spoke with discharge planning; therapy will return when she returns to skilled nursing, and they said that they would inform patient. I spoke with her nurse and learned that this morning is the first time patient has sat in a chair since her admission. So, this discovery of how weak she has become is relatively new (within the hour). Offered prayer for the patient. Time spent with patient: 5 mins
[2020-06-24 11:32] LABS: Glucose Point of Care 126 mg/dL (70-110)
--- NOTE | 2020-06-24 11:37 | P.PN_ITS ---
Subjective Subjective: Interval history: is doing better.She is spending time out of bed.Though she is still tachypenic and has SOB. Has remained afebrile, supplemental oxygen requirement is coming down, she has required 2-4 Ls oxygen via NC to maintain saturation above 90 %. Good urine output : Tolerating diet well. Medications: Reviewed: Yes Medication Review Details: Current Medications Acetaminophen (Acetaminophen 325 Mg Tablet) 650 mg PO Q6H PRN PRN Reason: MILD PAIN Last Admin: 06/22/20 19:35 Dose: 650 mg Documented by: Acetaminophen (Tylenol) 650 mg NC Q6H PRN PRN Reason: FEVER Acetylcysteine (Acetylcysteine 200 Mg/Ml Sdv 4 Ml) 100 mg INHALATION TID [facility] Last Admin: 06/23/20 16:08 Dose: 100 mg Documented by: Albuterol Sulfate (Ventolin) 2 puff INHALATION Q4H.RESPIRATORY PRN PRN Reason: SHORTNESS OF BREATH Albuterol/Ipratropium (Ipratropium-Albuterol 3 Ml Neb) 3 ml INHALATION TID [facility] Last Admin: 06/23/20 16:08 Dose: 3 ml Documented by: Amiodarone HCl (Amiodarone 200 Mg Tablet) 400 mg PO TID [facility] Last Admin: 06/23/20 14:57 Dose: 400 mg Documented by: Apixaban (Apixaban 5 Mg Tablet) 5 mg PO BID [facility] Atorvastatin Calcium (Lipitor) 40 mg PO BEDTIME [facility] Last Admin: 06/22/20 20:18 Dose: 40 mg Documented by: Bisacodyl (Bisac-Evac) 10 mg NC DAILY PRN PRN Reason: Constipation Dextrose (D50w) 25 ml IVP ONCE PRN; Protocol PRN Reason: hypoglycemia protocol Last Admin: 06/15/20 23:03 Dose: 25 ml Documented by: Dextrose (D50w) 50 ml IVP PRN PRN; Protocol PRN Reason: hypoglycemia protocol Folic Acid (Folic Acid) 1 mg PO DAILY [facility] Last Admin: 06/23/20 10:10 Dose: 1 mg Documented by: Glucagon (Glucagen) 1 mg IM ONCE PRN; Protocol PRN Reason: Adult Acute Hypoglycemia Prot. Dextrose (D5w) 500 mls @ 100 mls/hr IV ONCE PRN; Protocol PRN Reason: Adult Acute Hypoglycemia Prot Norepinephrine Bitartrate 4 mg (/ Dextrose) 254 mls @ 0 mls/hr IV .Q0M [facility]; Protocol Last Titration: 06/19/20 07:00 Dose: 0 mcg/min, 0 mls/hr Documented by: Imipenem/Cilastatin Sodium 500 (mg/ Sodium Chloride) 100 mls @ 200 mls/hr IV Q6H [facility] Last Admin: 06/23/20 14:57 Dose: 200 mls/hr Documented by: Levothyroxine Sodium (Synthroid) 225 mcg PO DAILY [facility] Last Admin: 06/23/20 10:11 Dose: 225 mcg Documented by: Lorazepam (Lorazepam 2 Mg/Ml Inj 1 Ml) 1 mg IVP Q6H PRN PRN Reason: ANXIETY Last Admin: 06/21/20 01:44 Dose: 1 mg Documented by: Magnesium Oxide (Magnesium Oxide 400 Mg Tablet) 400 mg PO BID [facility] Last Admin: 06/23/20 10:10 Dose: 400 mg Documented by: Metoprolol Tartrate (Metoprolol Tartrate 25 Mg Tablet) 25 mg PO BID [facility] Last Admin: 06/23/20 10:11 Dose: 25 mg Documented by: Morphine Sulfate (Morphine 4 Mg/Ml Sdv 1 Ml) 2 mg IVP Q4H PRN PRN Reason: SEVERE PAIN Last Admin: 06/23/20 05:13 Dose: 2 mg Documented by: Nystatin (Nystatin Powder 15 Gm Btl) 1 applic TOPICAL BID PRN PRN Reason: under folds Ondansetron HCl (Zofran) 4 mg IVP Q6H PRN PRN Reason: NAUSEA AND VOMITING Pantoprazole Sodium (Pantoprazole Dr 40 Mg Tablet) 40 mg PO BID [facility] Last Admin: 06/23/20 10:10 Dose: 40 mg Documented by: Zolpidem Tartrate (Zolpidem 5 Mg Tablet) 5 mg PO BEDTIME PRN PRN Reason: INSOMNIA Last Admin: 06/22/20 21:44 Dose: 5 mg Documented by: Vitals/I&O/Wt Last Vital Signs Temp 98.7 F 06/23/20 14:00 Pulse 89 06/24/20 10:00 Resp 31 H 06/24/20 10:00 BP 114/77 06/24/20 10:00 Pulse Ox 100 06/24/20 10:00 06/23/20 06/24/20 06/24/20 22:59 06:59 14:59 Intake Total 720 / 990 380 / 1370 340 / 340 Output Total 800 / 800 300 / 1100 Balance -80 / 190 80 / 270 340 / 340 Physical Exam Const: COMMON NORMALS: patient oriented x3 HENMT: COMMON NORMALS: normocephalic, atraumatic and external ears normal HEAD & SCALP: normocephalic and atraumatic EXTERNAL EAR: Yes external ears normal Eye: COMMON NORMALS: no scleral icterus GENERAL EYE: appearance normal, both eyes and all related structures Chest: COMMONS NORMALS: normal inspection of the chest and normal palpation of entire chest wall CHEST: Yes Symmetrical chest wall rise Resp: COMMON NORMALS: clear to auscultation bilaterally EFFORT & INSPECTION: Yes symmetric chest movement AUSCULTATION: clear to auscultation bilaterally Cardio: COMMON NORMALS: regular rate, regular rhythm, S1 normal heart sound present, S2 normal heart sound present, No gallops present (Cardio), No murmurs present (Cardio), No rub (Cardio) and Peripheral pulses 2+ throughout RATE: regular rate RHYTHM: regular rhythm HEART SOUNDS: S1 normal heart sound present and S2 normal heart sound present PERIPHERAL PULSES: Peripheral pulses 2+ throughout OTHER: Irreularly irregular,S1S2 of variable intensity. GI: COMMON NORMALS: Normal to inspection, nondistended, normoactive bowel sounds present, Soft to palpation, non-tender, No hepatosplenomegaly present and no masses AUSCULTATION: Yes normoactive bowel sounds PALPATION: Yes Soft to palpation and Yes No hepatosplenomegaly present RECTAL EXAM: deferred Extremity: COMMON NORMALS: no clubbing, cyanosis or edema and no pedal edema NARRATIVE EXTREMITY EXAM: 2 + B/L L/E Pitting edema present. OTHER: Trace b/l l/e edema. Neuro: COMMON NORMALS: patient oriented x3 Urinary Catheter Management^: Boswell: Cath Placed During This Visit: yes Reason for Continuing Indwelling Catheter: Accurate Measurement of Urinary Output in Critically Ill Patients Urinary Catheter Date of Insertion: 06/15/20 Urinary Catheter Time of Insertion: 19:50 Data : 06/24/20 03:32 06/24/20 03:32 Micro: Microbiology 06/22/20 04:00 Catheter Tip Culture - Preliminary Central Line A&P Assessment and plan (1) Respiratory failure with hypoxia: Ac hypoxic R/F Multifactorial ( PNA , Cradiogenic shock) : Post discharge from hospital after the managment of COVID PNA she was consitenetly requiring 3 l oxygen at skilled nursing. During this hospital stay she required HHFNC as well as BIPAP. At one point in time she was low threshold for intubation. Currently with the improvement in PNA, sepsis with multiorgan failure ,car diogenic shock, afib with RVR,her --supplemental oxygen requirement is also going down. -influenza, bacterial antigens, Legionella, MRSA negative. -rapid COVID-19 test negative. Recently treated for COVID-19 pneumonia requiring hospitalization. Imaging Studies: Most Recent C.T chest without Contrast done on 06/23: has shown : compressive atelectasis of both lower lobes and some portions of the posterior aspect of the left upper lobe. Pleural space: There are moderate bilateral pleural effusions. Pleural effusions are slightly larger than on the the previous examination. Heart: The heart is moderately enlarged. There is a large pericardial fluid collection present. Pericardial effusion measures up to 2 cm in thickness. Aorta: - Continue to monitor ABG, Xray chest, - Continue with Imipenam for now. - Pulmonary medicine (Dr. Benton ) was consulted. Yet to give final rec and sign off the patient.Last official note is from 06/19 - No miter sawyer over weekend.Expect to see on 06/26. Status: Acute Qualifiers: Chronicity: acute on chronic Qualified Code(s): J96.21 - Acute and chronic respiratory failure with hypoxia (2) Acute exacerbation of CHF (congestive heart failure): -Ac on Chronic HFpEF; exacerbation given -Elevated BNP elevation (8909), B/L LE edema with chronic changes -On I.V Diuresis ( Currently on Lasix 40 I.V Daily ) -repeat Echo: EF=55%, G2DD, small to moderate pericardial effusion but no tamponade physiology. Status: Acute Qualifiers: Heart failure type: diastolic Qualified Code(s): I50.33 - Acute on chronic diastolic (congestive) heart failure (3) Septic shock: -Shock with multiorgan involvement likely mix of sepsis 2/2 PNA as well as cardiogenic due to pericardial effusion without tamponade physiology. Resolved as evidenced by Resolved leukocytosis, off pressor support, no lactic acidosis -Currently on Primax , Vancomycin, levofloxacin and aztreonam was discontinued. -CT A/P has not shown any source of intrabdominal infection -blood cx , urine , sputum and catheter tip culture have shown no growth so far. -UA was indicative of infection; urine cx negative Status: Acute (4) Shock liver: - Is on the way to resolving. -Earlier significant increase in LFTs indicating acute liver failure -likely related to shock as noted above -has known large left hepatic lobe lesion; stable per repeat imaging -continue to trend LFTs Status: Acute (5) Atrial fibrillation with RVR: -Currently on Metoprolol T 25MG Q12 H Daily -As well as amiodarone 400 mg Q12H Daily -HR is well controlled. -On Eliquis Status: Acute (6) Acute kidney injury: -Resolved -baseline Cr appears to be around 1.2-1.6 -off IV fluid hydration -Continue to monitor renal function, renally dose meds, avoid nephrotoxins -CPK wnl -nephrology consult appreciated -good urine output overnight; has Boswell catheter in place -UA with some proteinuria, blood Status: Acute (7) Sepsis: -as noted above Status: Acute Qualifiers: Acute respiratory failure type: with hypoxia Sepsis acute organ dysfunction status: with acute organ dysfunction Sepsis type: sepsis due to unspecified organism Severe sepsis acute organ dysfunction type: acute respiratory failure Severe sepsis shock status: with septic shock Qualified Code(s): A41.9 - Sepsis, unspecified organism; R65.21 - Severe sepsis with septic shock; J96.01 - Acute respiratory failure with hypoxia (8) Elevated troponin: -noted elevated troponins with no significant delta x 2 hrs -this is likely type II due to demand ischemia secondary to severe sepsis -Echo (09/2019): EF=55%, no RWMA, biatrial enlargement, mild-moderate , mild TR. Repeat Echo noted above Status: Acute (9) Anemia: -baseline Hg is around 9. -continue to trend H/H; - Status: Chronic Qualifiers: Anemia type: unspecified type Qualified Code(s): D64.9 - Anemia, unspecified (10) Aortic stenosis: -noted mild to moderate per last Echo (09/2019) Status: Chronic Qualifiers: Cardiac valve disease etiology: etiology unspecified Qualified Code(s): I35.0 - Nonrheumatic aortic (valve) stenosis (11) Hyperlipidemia: -on statin Status: Chronic Qualifiers: Hyperlipidemia type: unspecified Qualified Code(s): E78.5 - Hyperlipidemia, unspecified (12) Hypertension: Metoprolol.T 25 MG Q12 H Daily Status: Chronic Qualifiers: Hypertension type: essential hypertension Qualified Code(s): I10 - Essential (primary) hypertension (13) Pulmonary embolism: -Prior hx of PE -On Eliquis Status: Chronic Qualifiers: Acute cor pulmonale presence: unspecified Chronicity: chronic Pulmonary embolism type: unspecified Qualified Code(s): I27.82 - Chronic pulmonary embolism (14) Pericardial effusion: Without Tamponade physiology.Has been monitored with serial echo. Last Serial echo done on : 06/22: Normal left ventricular size and systolic function with no diagnostic regional wall motion abnormalities. Left ventricular ejection fraction is estimated at 60 %. Moderate circumferential pericardial effusion. No evidence of tamponade physiology. Intervention cardiology has been consulted for the same and he is of the opinion to monitor it for now. Status: Acute (15) Elevated INR: -Coagulopathy likely related to liver failure and shock -Venous duplex negative for DVT -CTA was not done initially due to renal impairment. -Now resolved. -Ac has been resumed -Monitor for bleeding Status: Acute (16) Physical deconditioning: Patient has severe physical deconditioning. PT is on board Status: Acute Additional A&P Information -Morbid obesity: BMI-44 kg/m2 -hx of hypothyroidism; on levothyroxine -LE edema and ulcers; wound care as needed -Thrombocytopenia; Stable. Monitor P.C -hypoalbuminemia; Have received albumin once. will promote good diet with Boost. -GI ppx with PPI -DVT ppx On Eliquis -Dispo: return to [facility] -Code status: FULL code; -prognosis:Fair given resolution of multiorgan failure Attestations Medical Necessity Statement*: Patient needs to be in hospital for the management of Respiratory failure, CHF, Pericardial effusion. Coding Level of Care Code Acute Test Administrator for Bleinda Fwd Exam Comprehensive Diagnoses Respiratory failure with hypoxia J96.21 Chronicity: acute on chronic Acute exacerbation of CHF (congestive heart failure) I50.33 Heart failure type: diastolic Septic shock A41.9; R65.21 Shock liver K72.00 Atrial fibrillation with RVR I48.91 Acute kidney injury N17.9 Sepsis A41.9; R65.21; J96.01 Acute respiratory failure type: with hypoxia Sepsis acute organ dysfunction status: with acute organ dysfunction Sepsis type: sepsis due to unspecified organism Severe sepsis acute organ dysfunction type: acute respiratory failure Severe sepsis shock status: with septic shock Elevated troponin R79.89 Anemia D64.9 Anemia type: unspecified type Aortic stenosis I35.0 Cardiac valve disease etiology: etiology unspecified Hyperlipidemia E78.5 Hyperlipidemia type: unspecified Hypertension I10 Hypertension type: essential hypertension Pulmonary embolism I27.82 Acute cor pulmonale presence: unspecified Chronicity: chronic Pulmonary embolism type: unspecified Pericardial effusion I31.3 Elevated INR R79.1 Physical deconditioning R53.81
[2020-06-24 12:42] LABS: Glucose Point of Care 113 mg/dL (70-110)
[2020-06-24 17:04] LABS: Glucose Point of Care 107 mg/dL (70-110)
[2020-06-24] MEDS: atorvastatin 40 mg Tablet PO (20:48)
[2020-06-24] MEDS: zolpidem 5 mg Tablet PO (20:48)
[2020-06-24 21:13] LABS: Glucose Point of Care 92 mg/dL (70-110)
[2020-06-25] VITALS (26 sets, daily range): BP systolic 88–145; BP diastolic 48–113; PULSE 71–120; RESP 13–38; TEMP 36.3–37.2; O2SAT 89–100
[2020-06-25 07:34] LABS: Glucose Point of Care 86 mg/dL (70-110)
[2020-06-25] MEDS: ipratropium-albuterol 3 mL Neb INHALATION ×3 (08:36→20:01)
[2020-06-25] MEDS: amiodarone 200 mg Tablet 400 MG PO ×2 (09:31→17:19)
[2020-06-25] MEDS: apixaban 5 mg Tablet PO ×2 (09:31→17:19)
[2020-06-25] MEDS: folic acid 1 mg Tablet PO (09:32)
[2020-06-25] MEDS: levothyroxine 150 mcg Tablet 225 MCG PO (09:32)
[2020-06-25] MEDS: FUROsemide 10 mg/mL SDV 4mL 40 MG IVP (09:32)
[2020-06-25] MEDS: magnesium oxide 400 mg tablet PO ×2 (09:33→17:18)
[2020-06-25] MEDS: pantoprazole DR 40 mg Tablet PO ×2 (09:33→17:19)
[2020-06-25] MEDS: metoprolol tartrate 25 mg Tablet PO ×2 (09:33→17:18)
[2020-06-25 10:27] LABS: Basophils % 0.6 %; Eosinophils # 0.2 10^3/uL (0.0-0.8); Eosinophils % 3.3 %; Hematocrit 36.7 % (37.0-47.0); Lymphocytes # 0.6 10^3/uL (0.8-4.8); Lymphocytes % 12.2 %; Mean Corpuscular HGB Conc 27.2 g/dL (30.0-36.0); Mean Corpuscular Hemoglobin 26.1 pg (28.0-34.0); Mean Corpuscular Volume 95.8 fL (81-99); Mean Platelet Volume 11.9 fL (7.4-10.4); Monocytes # 0.6 10^3/uL (0.2-0.9); Neutrophils # 3.51 10^3/uL (1.8-7.7); Neutrophils % 71.5 %; Nucleated Red Blood Cells % 0 %; Platelet Count 84 10^3/cmm (130-400); Red Blood Count 3.83 10^6/uL (4.1-5.3); Red Cell Distribution Width 21.4 % (12.1-15.1); White Blood Count 4.9 10^3/uL (4.0-10.0)
[2020-06-25 10:37] LABS: Alanine Aminotransferase 91 U/L (0-33); Albumin Level 3.1 g/dL (3.5-5.2); Alkaline Phosphatase 148 IU/L (35-105); Anion Gap 11.9 (5-19); Aspartate Amino Transferase 16 U/L (0-32); Blood Urea Nitrogen 29 mg/dL (8-23); Calcium 8.3 mg/dL (8.5-10.5); Carbon Dioxide 30 mmol/L (22-29); Chloride 110 mmol/L (98-107); Globulin 2.5 g/dL (1.3-4.6); Glucose 108 mg/dL (65-115); Osmolality Calculated 312 mOsm/kg (285-295); Potassium 3.9 mmol/L (3.5-5.1); Sodium 148 mmol/L (136-145); Total Bilirubin 1.1 mg/dL (0.15-1.2); Total Protein 5.6 g/dL (6.6-8.7)
--- NOTE | 2020-06-25 11:13 | P.PN_ITS ---
Subjective Subjective: Interval history: Ms.Pliler deal is recovering well.Supplemental oxygen requirement is slowly going down, has remained afebrile, other vitals are stable.She has severe pain and ac onset of swelling and redness on lt wrist joint. Labs have been reviewed. Medications: Reviewed: Yes Medication Review Details: Current Medications Acetaminophen (Acetaminophen 325 Mg Tablet) 650 mg PO Q6H PRN PRN Reason: MILD PAIN Last Admin: 06/22/20 19:35 Dose: 650 mg Documented by: Acetaminophen (Tylenol) 650 mg ID Q6H PRN PRN Reason: FEVER Acetylcysteine (Acetylcysteine 200 Mg/Ml Sdv 4 Ml) 100 mg INHALATION TID [facility] Last Admin: 06/23/20 16:08 Dose: 100 mg Documented by: Albuterol Sulfate (Ventolin) 2 puff INHALATION Q4H.RESPIRATORY PRN PRN Reason: SHORTNESS OF BREATH Albuterol/Ipratropium (Ipratropium-Albuterol 3 Ml Neb) 3 ml INHALATION TID [facility] Last Admin: 06/23/20 16:08 Dose: 3 ml Documented by: Amiodarone HCl (Amiodarone 200 Mg Tablet) 400 mg PO TID [facility] Last Admin: 06/23/20 14:57 Dose: 400 mg Documented by: Apixaban (Apixaban 5 Mg Tablet) 5 mg PO BID [facility] Atorvastatin Calcium (Lipitor) 40 mg PO BEDTIME [facility] Last Admin: 06/22/20 20:18 Dose: 40 mg Documented by: Bisacodyl (Bisac-Evac) 10 mg ID DAILY PRN PRN Reason: Constipation Dextrose (D50w) 25 ml IVP ONCE PRN; Protocol PRN Reason: hypoglycemia protocol Last Admin: 06/15/20 23:03 Dose: 25 ml Documented by: Dextrose (D50w) 50 ml IVP PRN PRN; Protocol PRN Reason: hypoglycemia protocol Folic Acid (Folic Acid) 1 mg PO DAILY [facility] Last Admin: 06/23/20 10:10 Dose: 1 mg Documented by: Glucagon (Glucagen) 1 mg IM ONCE PRN; Protocol PRN Reason: Adult Acute Hypoglycemia Prot. Dextrose (D5w) 500 mls @ 100 mls/hr IV ONCE PRN; Protocol PRN Reason: Adult Acute Hypoglycemia Prot Norepinephrine Bitartrate 4 mg (/ Dextrose) 254 mls @ 0 mls/hr IV .Q0M [facility]; Protocol Last Titration: 06/19/20 07:00 Dose: 0 mcg/min, 0 mls/hr Documented by: Imipenem/Cilastatin Sodium 500 (mg/ Sodium Chloride) 100 mls @ 200 mls/hr IV Q6H [facility] Last Admin: 06/23/20 14:57 Dose: 200 mls/hr Documented by: Levothyroxine Sodium (Synthroid) 225 mcg PO DAILY [facility] Last Admin: 06/23/20 10:11 Dose: 225 mcg Documented by: Lorazepam (Lorazepam 2 Mg/Ml Inj 1 Ml) 1 mg IVP Q6H PRN PRN Reason: ANXIETY Last Admin: 06/21/20 01:44 Dose: 1 mg Documented by: Magnesium Oxide (Magnesium Oxide 400 Mg Tablet) 400 mg PO BID [facility] Last Admin: 06/23/20 10:10 Dose: 400 mg Documented by: Metoprolol Tartrate (Metoprolol Tartrate 25 Mg Tablet) 25 mg PO BID [facility] Last Admin: 06/23/20 10:11 Dose: 25 mg Documented by: Morphine Sulfate (Morphine 4 Mg/Ml Sdv 1 Ml) 2 mg IVP Q4H PRN PRN Reason: SEVERE PAIN Last Admin: 06/23/20 05:13 Dose: 2 mg Documented by: Nystatin (Nystatin Powder 15 Gm Btl) 1 applic TOPICAL BID PRN PRN Reason: under folds Ondansetron HCl (Zofran) 4 mg IVP Q6H PRN PRN Reason: NAUSEA AND VOMITING Pantoprazole Sodium (Pantoprazole Dr 40 Mg Tablet) 40 mg PO BID [facility] Last Admin: 06/23/20 10:10 Dose: 40 mg Documented by: Zolpidem Tartrate (Zolpidem 5 Mg Tablet) 5 mg PO BEDTIME PRN PRN Reason: INSOMNIA Last Admin: 06/22/20 21:44 Dose: 5 mg Documented by: Vitals/I&O/Wt Last Vital Signs Temp 97.6 F 06/25/20 04:00 Pulse 108 H 06/25/20 08:44 Resp 20 H 06/25/20 08:38 BP 104/68 06/25/20 06:00 Pulse Ox 93 06/25/20 08:38 06/24/20 06/25/20 06/25/20 22:59 06:59 14:59 Intake Total 160 / 840 100 / 940 100 / 100 Output Total 750 / 750 750 / 1500 Balance -590 / 90 -650 / -560 100 / 100 Weight last 48 hrs Weight 128.367 kg Physical Exam Const: COMMON NORMALS: patient oriented x3 HENMT: COMMON NORMALS: normocephalic and atraumatic HEAD & SCALP: n ormocephalic and atraumatic Eye: GENERAL EYE: appearance normal, both eyes and all related structures Resp: COMMON NORMALS: clear to auscultation bilaterally EFFORT & INSPECTION : Yes symmetric chest movement AUSCULTATION: clear to auscultation bilaterally Cardio: COMMON NORMALS: regular rate, regular rhythm, S1 normal heart sound present, S2 normal heart sound present, No gallops present (Cardio), No murmurs present (Cardio), No rub (Cardio) and Peripheral pulses 2+ throughout RATE: regular rate RHYTHM: regular rhythm HEART SOUNDS: S1 normal heart sound present and S2 normal heart sound present PERIPHERAL PULSES: Peripheral pulses 2+ throughout OTHER: Irreularly irregular,S1S2 of variable intensity. GI: COMMON NORMALS: Normal to inspection, nondistended, normoactive bowel sounds present, Soft to palpation, non-tender, No hepatosplenomegaly present and no masses AUSCULTATION: Yes normoactive bowel sounds PALPATION: Yes Soft to palpation and Yes No hepatosplenomegaly present RECTAL EXAM: deferred Extremity: COMMON NORMALS: no clubbing, cyanosis or edema and no pedal edema NARRATIVE EXTREMITY EXAM: lt wrist redness and swelling OTHER: Trace b/l l/e edema. Neuro: COMMON NORMALS: patient oriented x3 Urinary Catheter Management^: Boswell: Cath Placed During This Visit: yes Reason for Continuing Indwelling Catheter: Accurate Measurement of Urinary Output in Critically Ill Patients Urinary Catheter Date of Insertion: 06/15/20 Urinary Catheter Time of Insertion: 19:50 Data : 06/25/20 09:05 06/25/20 09:05 Micro: Microbiology 06/22/20 04:00 Catheter Tip Culture - Final Central Line A&P Assessment and plan (1) Acute exacerbation of CHF (congestive heart failure): -Ac on Chronic HFpEF; exacerbation given -Elevated BNP elevation (8909), B/L LE edema with chronic changes -On I.V Diuresis ( Currently on Lasix 40 I.V Daily ) -repeat Echo: EF=55%, G2DD, small to moderate pericardial effusion but no tamponade physiology. Status: Acute Qualifiers: Heart failure type: diastolic Qualified Code(s): I50.33 - Acute on chronic diastolic (congestive) heart failure (2) Respiratory failure with hypoxia: Ac hypoxic R/F Multifactorial ( PNA , Cradiogenic shock) : Post discharge from hospital after the managment of COVID PNA she was consitenetly requiring 3 l oxygen at detention. During this hospital stay she required HHFNC as well as BIPAP. At one point in time she was low threshold for intubation. Currently with the improvement in PNA, sepsis with multiorgan failure ,cardi ogenic shock, afib with RVR,her --supplemental oxygen requirement is also going down. -influenza, bacterial antigens, Legionella, MRSA negative. -rapid COVID-19 test negative. Recently treated for COVID-19 pneumonia requiring hospitalization. Imaging Studies: Most Recent C.T chest without Contrast done on 06/23: has shown : compressive atelectasis of both lower lobes and some portions of the posterior aspect of the left upper lobe. Pleural space: There are moderate bilateral pleural effusions. Pleural effusions are slightly larger than on the the previous examination. Heart: The heart is moderately enlarged. There is a large pericardial fluid collection present. Pericardial effusion measures up to 2 cm in thickness. Aorta: - Continue to monitor ABG, Xray chest, - Continue with Imipenam for now. - Pulmonary medicine (Dr. Benton ) was consulted. Yet to give final rec and sign off the patient.Last official note is from 06/19 - No air traffic control specialist over weekend.Expect to see on 06/26. Status: Acute Qualifiers: Chronicity: acute on chronic Qualified Code(s): J96.21 - Acute and chronic respiratory failure with hypoxia (3) Gout attack: Possible gout flare on lt wrist,though not typical site.R.F includes ( Obesity, CHF ) Ac Onset of redness and swellinG and joint pain developed overnight Will avoid colchicine ( Diarrhea ) and NSAIDS (CHF ) . Prednisone 20 mg oral daily Status: Acute (4) Septic shock: -Shock with multiorgan involvement likely mix of sepsis 2/2 PNA as well as cardiogenic due to pericardial effusion without tamponade physiology. Resolved as evidenced by Resolved leukocytosis, off pressor support, no lactic acidosis -Currently on Primax , Vancomycin, levofloxacin and aztreonam was discontinued. -CT A/P has not shown any source of intrabdominal infection -blood cx , urine , sputum and catheter tip culture have shown no growth so far. -UA was indicative of infection; urine cx negative Status: Acute (5) Shock liver: - Is on the way to resolving. -Earlier significant increase in LFTs indicating acute liver failure -likely related to shock as noted above -has known large left hepatic lobe lesion; stable per repeat imaging -continue to trend LFTs Status: Acute (6) Atrial fibrillation with RVR: -Currently on Metoprolol T 25MG Q12 H Daily -As well as amiodarone 400 mg Q12H Daily -HR is well controlled. -On Eliquis Status: Acute (7) Acute kidney injury: -Resolved -baseline Cr appears to be around 1.2-1.6 -off IV fluid hydration -Continue to monitor renal function, renally dose meds, avoid nephrotoxins -CPK wnl -nephrology consult appreciated -good urine output overnight; has Boswell catheter in place -UA with some proteinuria, blood Status: Acute (8) Sepsis: -as noted above Status: Acute Qualifiers: Sepsis type: sepsis due to unspecified organism Sepsis acute organ dysfunction status: with acute organ dysfunction Severe sepsis acute organ dysfunction type: acute respiratory failure Acute respiratory failure type: with hypoxia Severe sepsis shock status: with septic shock Qualified Code(s): A41.9 - Sepsis, unspecified organism; R65.21 - Severe sepsis with septic shock; J96.01 - Acute respiratory failure with hypoxia (9) Elevated troponin: -noted elevated troponins with no significant delta x 2 hrs -this is likely type II due to demand ischemia secondary to severe sepsis -Echo (09/2019): EF=55%, no RWMA, biatrial enlargement, mild-moderate , mild TR. Repeat Echo noted above Status: Acute (10) Anemia: -baseline Hg is around 9. -continue to trend H/H; - Status: Chronic Qualifiers: Anemia type: unspecified type Qualified Code(s): D64.9 - Anemia, unspecified (11) Aortic stenosis: -noted mild to moderate per last Echo (09/2019) Status: Chronic Qualifiers: Cardiac valve disease etiology: etiology unspecified Qualified Code(s): I35.0 - Nonrheumatic aortic (valve) stenosis (12) Hyperlipidemia: -on statin Status: Chronic Qualifiers: Hyperlipidemia type: unspecified Qualified Code(s): E78.5 - Hyperlipidemia, unspecified (13) Hypertension: Metoprolol.T 25 MG Q12 H Daily Status: Chronic Qualifiers: Hypertension type: essential hypertension Qualified Code(s): I10 - Essential (primary) hypertension (14) Pulmonary embolism: -Prior hx of PE -On Eliquis Status: Chronic Qualifiers: Pulmonary embolism type: unspecified Chronicity: chronic Acute cor pulmonale presence: unspecified Qualified Code(s): I27.82 - Chronic pulmonary embolism (15) Pericardial effusion: Without Tamponade physiology.Has been monitored with serial echo. Last Serial echo done on : 06/22: Normal left ventricular size and systolic function with no diagnostic regional wall motion abnormalities. Left ventricular ejection fraction is estimated at 60 %. Moderate circumferential pericardial effusion. No evidence of tamponade physiology. Intervention cardiology has been consulted for the same and he is of the opinion to monitor it for now. Status: Acute (16) Elevated INR: -Coagulopathy likely related to liver failure and shock -Venous duplex negative for DVT -CTA was not done initially due to renal impairment. -Now resolved. -Ac has been resumed -Monitor for bleeding Status: Acute (17) Physical deconditioning: Patient has severe physical deconditioning. PT is on board Status: Acute Additional A&P Information -Morbid obesity: BMI-44 kg/m2 -hx of hypothyroidism; on levothyroxine -LE edema and ulcers; wound care as needed -Thrombocytopenia; Stable. Monitor P.C -hypoalbuminemia; Have received albumin once. will promote good diet with Boost. 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 [employer] Fwcynthia Diagnoses Acute exacerbation of CHF (congestive heart failure) I50.33 Heart failure type: diastolic Respiratory failure with hypoxia J96.21 Chronicity: acute on chronic Gout attack M10.9 Septic shock A41.9; R65.21 Shock liver K72.00 Atrial fibrillation with RVR I48.91 Acute kidney injury N17.9 Sepsis A41.9; R65.21; J96.01 Sepsis type: sepsis due to unspecified organism Sepsis acute organ dysfunction status: with acute organ dysfunction Severe sepsis acute organ dysfunction type: acute respiratory failure Acute respiratory failure type: with hypoxia Severe sepsis shock status: with septic shock Elevated troponin R79.89 Anemia D64.9 Anemia type: unspecified type Aortic stenosis I35.0 Cardiac valve disease etiology: etiology unspecified Hyperlipidemia E78.5 Hyperlipidemia type: unspecified Hypertension I10 Hypertension type: essential hypertension Pulmonary embolism I27.82 Pulmonary embolism type: unspecified Chronicity: chronic Acute cor pulmonale presence: unspecified Pericardial effusion I31.3 Elevated INR R79.1 Physical deconditioning R53.81
[2020-06-25 11:23] LABS: Glucose Point of Care 100 mg/dL (70-110)
--- NOTE | 2020-06-25 18:17 | PC.NURSE ---
note right wrist reddened and is very tender when touched.
[2020-06-25 18:54] LABS: Glucose Point of Care 103 mg/dL (70-110)
[2020-06-25] MEDS: zolpidem 5 mg Tablet PO (19:05)
[2020-06-25] MEDS: dextrose 5%-sod chloride 0.45% 1,000 ML 50 ML IV (19:15)
[2020-06-25] MEDS: atorvastatin 40 mg Tablet PO (20:11)
[2020-06-25 20:19] LABS: Glucose Point of Care 123 mg/dL (70-110)
[2020-06-25] MEDS: nystatin powder 15 gm Btl 1 APPLIC TOPICAL (23:51)
[2020-06-26] VITALS (37 sets, daily range): BP systolic 86–150; BP diastolic 45–106; PULSE 74–107; RESP 16–39; TEMP 36.3–37.1; O2SAT 95–99
[2020-06-26 05:23] LABS: Basophils % 0.5 %; Eosinophils # 0.2 10^3/uL (0.0-0.8); Eosinophils % 4.3 %; Hematocrit 31.3 % (37.0-47.0); Hemoglobin 8.7 g/dL (11.5-15.3); Lymphocytes # 0.7 10^3/uL (0.8-4.8); Lymphocytes % 17.4 %; Mean Corpuscular HGB Conc 27.8 g/dL (30.0-36.0); Mean Corpuscular Hemoglobin 26.7 pg (28.0-34.0); Monocytes # 0.5 10^3/uL (0.2-0.9); Monocytes % 14.5 %; Neutrophils # 2.35 10^3/uL (1.8-7.7); Nucleated Red Blood Cells % 0 %; Platelet Count 77 10^3/cmm (130-400); Red Blood Count 3.26 10^6/uL (4.1-5.3); Red Cell Distribution Width 21.5 % (12.1-15.1); White Blood Count 3.7 10^3/uL (4.0-10.0)
[2020-06-26 06:05] LABS: Alanine Aminotransferase 58 U/L (0-33); Albumin Level 2.6 g/dL (3.5-5.2); Alkaline Phosphatase 121 IU/L (35-105); Anion Gap 12.6 (5-19); Aspartate Amino Transferase 15 U/L (0-32); Blood Urea Nitrogen 27 mg/dL (8-23); Calcium 8.2 mg/dL (8.5-10.5); Carbon Dioxide 27 mmol/L (22-29); Chloride 107 mmol/L (98-107); Globulin 2.6 g/dL (1.3-4.6); Glucose 93 mg/dL (65-115); Magnesium 1.9 mg/dL (1.7-2.3); Osmolality Calculated 301 mOsm/kg (285-295); Potassium 3.6 mmol/L (3.5-5.1); Sodium 143 mmol/L (136-145); Total Protein 5.2 g/dL (6.6-8.7)
[2020-06-26 08:04] LABS: Glucose Point of Care 144 mg/dL (70-110)
[2020-06-26] MEDS: ipratropium-albuterol 3 mL Neb INHALATION ×3 (08:12→20:09)
--- NOTE | 2020-06-26 08:46 | PC.NURSE ---
Pt assisted up to chair with RT. Gait belt used. Max assist. Encouraged to stand up straight and to keep eyes open. HR 120's while transitioning.
[2020-06-26] MEDS: FUROsemide 10 mg/mL SDV 4mL 40 MG IVP (09:15)
[2020-06-26] MEDS: levothyroxine 150 mcg Tablet 225 MCG PO (09:15)
[2020-06-26] MEDS: magnesium oxide 400 mg tablet PO ×2 (09:16→18:09)
[2020-06-26] MEDS: folic acid 1 mg Tablet PO (09:16)
[2020-06-26] MEDS: metoprolol tartrate 25 mg Tablet PO ×2 (09:17→18:08)
[2020-06-26] MEDS: amiodarone 200 mg Tablet 400 MG PO ×2 (09:17→18:09)
[2020-06-26] MEDS: apixaban 5 mg Tablet PO ×2 (09:18→18:09)
[2020-06-26] MEDS: predniSONE 20 mg Tablet PO (09:18)
[2020-06-26] MEDS: pantoprazole DR 40 mg Tablet PO ×2 (09:19→18:09)
--- NOTE | 2020-06-26 09:32 | PC.CHAP ---
Pastoral Care Encounter/Spiritual Assessment Type of Contact [] Declined kitchenwhere maker visit [] Patient/Family/Request visit [] Outpatient visit [] Follow-up visit [] Physician referral [] Code/Alert [] Routine visit [] Staff referral [] Actively dying [] Patient sleeping [] Family support [] [] Out of room [] Palliative care [] [] Receiving care in room [] Pre-surgical visit [] Trauma [] Long length of stay [] ICU visit [] Other: Relational/Emotional Strength [] Patient feels connected with others/family/visitors/staff [] Distress [] Loneliness/isolation [] Abandonment Spirituality of Patient [] Person of Tenisha [] Attends Confucianist of their Tenisha [] Believes in Prayer [] Reads Bible or Presybeterian materials [] There are Spiritual issues to be addressed Senior Security Engineer Interventions [x] Prayer [] Active listening [] Non-anxious presence [] Spiritual/emotional support [] Crisis/trauma care [] Spiritual counseling [] Bereavement support [] Provided bereavement packet [] Provided Bible/devotional materials [] Provided toy/stuffed animal, coloring book to patient or family member [] Provided Communion [] Anointing/[place] [] Salvation [x] Completed spiritual assessment [] Other: Impact on Illness or Injury [] Angry [] Fearful [] Anxious [] Often cries [] Exhaustion [] Unable to work [] Unable to attend denominational [] Unable to walk/stand [] Unable to read [] Unable to drive [] Unable to eat/drink [] Unable to sleep [] Unable to be with family [] Patient intubated [] Other: Summary Time spent with patient
--- NOTE | 2020-06-26 10:04 | PM.PN ---
Subjective Subjective: Interval history: is recovering well, she has been out of Bed to chair for most part of the day. Has remained afebrile , has good urine output , HR is well controlled. Medications: Reviewed: Yes Medication Review Details: Current Medications Acetaminophen (Acetaminophen 325 Mg Tablet) 650 mg PO Q6H PRN PRN Reason: MILD PAIN Last Admin: 06/22/20 19:35 Dose: 650 mg Documented by: Acetaminophen (Tylenol) 650 mg PA Q6H PRN PRN Reason: FEVER Acetylcysteine (Acetylcysteine 200 Mg/Ml Sdv 4 Ml) 100 mg INHALATION TID [facility] Last Admin: 06/26/20 14:05 Dose: Not Given Documented by: Albuterol Sulfate (Ventolin) 2 puff INHALATION Q4H.RESPIRATORY PRN PRN Reason: SHORTNESS OF BREATH Albuterol/Ipratropium (Ipratropium-Albuterol 3 Ml Neb) 3 ml INHALATION TID [facility] Last Admin: 06/26/20 14:05 Dose: 3 ml Documented by: Amiodarone HCl (Amiodarone 200 Mg Tablet) 400 mg PO BID [facility] Last Admin: 06/26/20 09:17 Dose: 400 mg Documented by: Apixaban (Apixaban 5 Mg Tablet) 5 mg PO BID [facility] Last Admin: 06/26/20 09:18 Dose: 5 mg Documented by: Atorvastatin Calcium (Lipitor) 40 mg PO BEDTIME [facility] Last Admin: 06/25/20 20:11 Dose: 40 mg Documented by: Bisacodyl (Bisac-Evac) 10 mg PA DAILY PRN PRN Reason: Constipation Dextrose (D50w) 25 ml IVP ONCE PRN; Protocol PRN Reason: hypoglycemia protocol Last Admin: 06/15/20 23:03 Dose: 25 ml Documented by: Dextrose (D50w) 50 ml IVP PRN PRN; Protocol PRN Reason: hypoglycemia protocol Folic Acid (Folic Acid) 1 mg PO DAILY [facility] Last Admin: 06/26/20 09:16 Dose: 1 mg Documented by: Furosemide (Furosemide 10 Mg/Ml Sdv 4ml) 40 mg IVP Q24H [facility] Last Admin: 06/26/20 09:15 Dose: 40 mg Documented by: Glucagon (Glucagen) 1 mg IM ONCE PRN; Protocol PRN Reason: Adult Acute Hypoglycemia Prot. Dextrose (D5w) 500 mls @ 100 mls/hr IV ONCE PRN; Protocol PRN Reason: Adult Acute Hypoglycemia Prot Imipenem/Cilastatin Sodium 500 (mg/ Sodium Chloride) 100 mls @ 200 mls/hr IV Q6H [facility] Last Admin: 06/26/20 16:50 Dose: 200 mls/hr Documented by: Dextrose/Sodium Chloride (Dextrose 5%-Sod Chloride 0.45%) 1,000 mls @ 50 mls/hr IV .Q20H [facility] Last Admin: 06/26/20 16:49 Dose: 50 mls/hr Documented by: Levothyroxine Sodium (Synthroid) 225 mcg PO DAILY [facility] Last Admin: 06/26/20 09:15 Dose: 225 mcg Documented by: Magnesium Oxide (Magnesium Oxide 400 Mg Tablet) 400 mg PO BID [facility] Last Admin: 06/26/20 09:16 Dose: 400 mg Documented by: Metoprolol Tartrate (Metoprolol Tartrate 25 Mg Tablet) 25 mg PO BID [facility] Last Admin: 06/26/20 09:17 Dose: 25 mg Documented by: Morphine Sulfate (Morphine 4 Mg/Ml Sdv 1 Ml) 2 mg IVP Q4H PRN PRN Reason: SEVERE PAIN Last Admin: 06/24/20 04:08 Dose: 2 mg Documented by: Nystatin (Nystatin Powder 15 Gm Btl) 1 applic TOPICAL BID PRN PRN Reason: under folds Last Admin: 06/25/20 23:51 Dose: 1 applic Documented by: Ondansetron HCl (Zofran) 4 mg IVP Q6H PRN PRN Reason: NAUSEA AND VOMITING Pantoprazole Sodium (Pantoprazole Dr 40 Mg Tablet) 40 mg PO BID [facility] Last Admin: 06/26/20 09:19 Dose: 40 mg Documented by: Prednisone (Prednisone 20 Mg Tablet) 20 mg PO DAILY [facility] Last Admin: 06/26/20 09:18 Dose: 20 mg Documented by: Vitals/I&O/Wt Last Vital Signs Temp 97.4 F L 06/26/20 04:00 Pulse 89 06/26/20 08:17 Resp 20 H 06/26/20 08:14 BP 119/52 06/26/20 08:00 Pulse Ox 96 06/26/20 08:14 06/25/20 06/26/20 06/26/20 22:59 06:59 14:59 Intake Total 700 / 1320 250 / 1570 Output Total 1400 / 1400 600 / 2000 Balance -700 / -80 -350 / -430 Weight last 48 hrs Weight 128.231 kg Weight 128.367 kg Physical Exam Const: COMMON NORMALS: patient oriented x3 HENMT: COMMON NORMALS: normocephalic and atraumatic HEAD & SCALP: normocephalic and atraumatic Eye: COMMON NORMALS: no scleral icterus GENERAL EYE: appearance normal, both eyes and all related structures Chest: COMMONS NORMALS: normal inspection of the chest and normal palpation of entire chest wall CHEST: Yes Symmetrical chest wall rise Resp: COMMON NORMALS: clear to auscultation bilaterally EFFORT & INSPECTION: Yes symmetric chest movement AUSCULTATION: clear to auscultation bilaterally Cardio: COMMON NORMALS: regular rate, regular rhythm, S1 normal heart sound present, S2 normal heart sound present, No gallops present (Cardio), No murmurs present (Cardio), No rub (Cardio) and Peripheral pulses 2+ throughout RATE: regular rate RHYTHM: regular rhythm HEART SOUNDS: S1 normal heart sound present and S2 normal heart sound present PERIPHERAL PULSES: Peripheral pulses 2+ throughout OTHER: S1, S2 Of variable intensity.Irergularly,Irregualr GI: COMMON NORMALS: Normal to inspection, nondistended, normoactive bowel sounds present, Soft to palpation, non-tender, No hepatosplenomegaly present and no masses AUSCULTATION: Yes normoactive bowel sounds PALPATION: Yes Soft to palpation and Yes No hepatosplenomegaly present RECTAL EXAM: deferred Extremity: COMMON NORMALS: no clubbing, cyanosis or edema and no pedal edema OTHER: Trace b/l l/e edema. Neuro: COMMON NORMALS: patient oriented x3 Urinary Catheter Management^: Boswell: Cath Placed During This Visit: yes Reason for Continuing Indwelling Catheter: Accurate Measurement of Urinary Output in Critically Ill Patients Urinary Catheter Date of Insertion: 06/15/20 Urinary Catheter Time of Insertion: 19:50 Data : 06/26/20 04:34 06/26/20 04:34 A&P Assessment and plan (1) Acute exacerbation of CHF (congestive heart failure): -Ac on Chronic HFpEF; exacerbation given -Elevated BNP elevation (8909), B/L LE edema with chronic changes -On I.V Diuresis ( Currently on Lasix 40 I.V Daily ) -repeat Echo: EF=55%, G2DD, small to moderate pericardial effusion but no tamponade physiology. Status: Acute Qualifiers: Heart failure type: diastolic Qualified Code(s): I50.33 - Acute on chronic diastolic (congestive) heart failure (2) Respiratory failure with hypoxia: Ac hypoxic R/F Multifactorial ( PNA , Cradiogenic shock) : Post discharge from hospital after the managment of COVID PNA she was consitenetly requiring 3 l oxygen at long term. During this hospital stay she required HHFNC as well as BIPAP. At one point in time she was low threshold for intubation. Currently with the improvement in PNA, sepsis with multiorgan failure ,cardiogenic shock, afib with RVR,her --supplemental oxygen requirement is also going down. -influenza, bacterial antigens, Legionella, MRSA negative. -rapid COVID-19 test negative. Recently treated for COVID-19 pneumonia requiring hospitalization. Imaging Studies: Most Recent C.T chest without Contrast done on 06/23: has shown : compressive atelectasis of both lower lobes and some portions of the posterior aspect of the left upper lobe. Pleural space: There are moderate bilateral pleural effusions. Pleural effusions are slightly larger than on the the previous examination. Heart: The heart is moderately enlarged. There is a large pericardial fluid collection present. Pericardial effusion measures up to 2 cm in thickness. Aorta: - Continue to monitor ABG, Xray chest, - Continue with Imipenam for now. - Pulmonary medicine (Dr. Benton ) was consulted. 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 Status: Acute Qualifiers: Chronicity: acute on chronic Qualified Code(s): J96.21 - Acute and chronic respiratory failure with hypoxia (3) Gout attack: Possible gout flare on lt wrist,though not typical site.R.F includes ( Obesity, CHF ) Ac Onset of redness and swellinG and joint pain developed overnight Will avoid colchicine ( Diarrhea ) and NSAIDS (CHF ) . Prednisone 20 mg oral daily Status: Acute (4) Septic shock: -Shock with multiorgan involvement likely mix of sepsis 2/2 PNA as well as cardiogenic due to pericardial effusion without tamponade physiology. Resolved as evidenced by Resolved leukocytosis, off pressor support, no lactic acidosis -Currently on Primax , Vancomycin, levofloxacin and aztreonam was discontinued. -CT A/P has not shown any source of intrabdominal infection -blood cx , urine , sputum and catheter tip culture have shown no growth so far. -UA was indicative of infection; urine cx negative Status: Acute (5) Shock liver: - Is on the way to resolving. -Earlier significant increase in LFTs indicating acute liver failure -likely related to shock as noted above -has known large left hepatic lobe lesion; stable per repeat imaging -continue to trend LFTs Status: Acute (6) Atrial fibrillation with RVR: -Currently on Metoprolol T 25MG Q12 H Daily -As well as amiodarone 400 mg Q12H Daily -HR is well controlled. -On Eliquis Status: Acute (7) Acute kidney injury: -Resolved -baseline Cr appears to be around 1.2-1.6 -off IV fluid hydration -Continue to monitor renal function, renally dose meds, avoid nephrotoxins -CPK wnl -nephrology consult appreciated -good urine output overnight; has Boswell catheter in place -UA with some proteinuria, blood Status: Acute (8) Sepsis: -as noted above Status: Acute Qualifiers: Sepsis type: sepsis due to unspecified organism Sepsis acute organ dysfunction status: with acute organ dysfunction Severe sepsis acute organ dysfunction type: acute respiratory failure Acute respiratory failure type: with hypoxia Severe sepsis shock status: with septic shock Qualified Code(s): A41.9 - Sepsis, unspecified organism; R65.21 - Severe sepsis with septic shock; J96.01 - Acute respiratory failure with hypoxia (9) Elevated troponin: -noted elevated troponins with no significant delta x 2 hrs -this is likely type II due to demand ischemia secondary to severe sepsis -Echo (09/2019): EF=55%, no RWMA, biatrial enlargement, mild-moderate , mild TR. Repeat Echo noted above Status: Acute (10) Anemia: -baseline Hg is around 9. -continue to trend H/H; - Status: Chronic Qualifiers: Anemia type: unspecified type Qualified Code(s): D64.9 - Anemia, unspecified (11) Aortic stenosis: -noted mild to moderate per last Echo (09/2019) Status: Chronic Qualifiers: Cardiac valve disease etiology: etiology unspecified Qualified Code(s): I35.0 - Nonrheumatic aortic (valve) stenosis (12) Hyperlipidemia: -on statin Status: Chronic Qualifiers: Hyperlipidemia type: unspecified Qualified Code(s): E78.5 - Hyperlipidemia, unspecified (13) Hypertension: Metoprolol.T 25 MG Q12 H Daily Status: Chronic Qualifiers: Hypertension type: essential hypertension Qualified Code(s): I10 - Essential (primary) hypertension (14) Pulmonary embolism: -Prior hx of PE -On Eliquis Status: Chronic Qualifiers: Pulmonary embolism type: unspecified Chronicity: chronic Acute cor pulmonale presence: unspecified Qualified Code(s): I27.82 - Chronic pulmonary embolism (15) Pericardial effusion: Without Tamponade physiology.Has been monitored with serial echo. Last Serial echo done on : 06/22: Normal left ventricular size and systolic function with no diagnostic regional wall motion abnormalities. Left ventricular ejection fraction is estimated at 60 %. Moderate circumferential pericardial effusion. No evidence of tamponade physiology. Intervention cardiology has been consulted for the same and he is of the opinion to monitor it for now. Status: Acute (16) Elevated INR: -Coagulopathy likely related to liver failure and shock -Venous duplex negative for DVT -CTA was not done initially due to renal impairment. -Now resolved. -Ac has been resumed -Monitor for bleeding Status: Acute (17) Physical deconditioning: Patient has severe physical deconditioning. PT is on board Status: Acute Additional A&P Information -Morbid obesity: BMI-44 kg/m2 -hx of hypothyroidism; on levothyroxine -LE edema and ulcers; wound care as needed -Thrombocytopenia; Stable. Monitor P.C -hypoalbuminemia; Have received albumin once. will promote good diet with Boost. -GI ppx with PPI -DVT ppx On Eliquis -Dispo: return to [facility] -Code status: FULL code; -prognosis:Fair given resolution of multiorgan failure Attestations Medical Necessity Statement*: Patient needs to be in hospital for the management of CHF Exacerbation, Sepsis, pericardial effusion, R.F Coding Level of Care Code Acute Family Resource Coordinator for [facility] Diagnoses Acute exacerbation of CHF (congestive heart failure) I50.33 Heart failure type: diastolic Respiratory failure with hypoxia J96.21 Chronicity: acute on chronic Gout attack M10.9 Septic shock A41.9; R65.21 Shock liver K72.00 Atrial fibrillation with RVR I48.91 Acute kidney injury N17.9 Sepsis A41.9; R65.21; J96.01 Sepsis type: sepsis due to unspecified organism Sepsis acute organ dysfunction status: with acute organ dysfunction Severe sepsis acute organ dysfunction type: acute respiratory failure Acute respiratory failure type: with hypoxia Severe sepsis shock status: with septic shock Elevated troponin R79.89 Anemia D64.9 Anemia type: unspecified type Aortic stenosis I35.0 Cardiac valve disease etiology: etiology unspecified Hyperlipidemia E78.5 Hyperlipidemia type: unspecified Hypertension I10 Hypertension type: essential hypertension Pulmonary embolism I27.82 Pulmonary embolism type: unspecified Chronicity: chronic Acute cor pulmonale presence: unspecified Pericardial effusion I31.3 Elevated INR R79.1 Physical deconditioning R53.81
[2020-06-26 11:39] LABS: Glucose Point of Care 116 mg/dL (70-110)
--- NOTE | 2020-06-26 16:10 | PC.SOCIAL ---
IMM Updated Page 2 of IMM updated and given to patient. She verbalizes understanding. Initialed, dated, and timed and placed back in chart.
[2020-06-26] MEDS: dextrose 5%-sod chloride 0.45% 1,000 ML 50 ML IV (16:49)
[2020-06-26 17:19] LABS: Glucose Point of Care 155 mg/dL (70-110)
--- NOTE | 2020-06-26 17:23 | PM.PN ---
Subjective Subjective: Interval history: She is doing well. Is participating in physical therapy. No episodes of RVR on telemetry. Cumulative intake approximately 20 L and cumulative output is 17.5 L. Medications: Reviewed: Yes Medication Review Details: Current Medications Acetaminophen (Acetaminophen 325 Mg Tablet) 650 mg PO Q6H PRN PRN Reason: MILD PAIN Last Admin: 06/22/20 19:35 Dose: 650 mg Documented by: Acetaminophen (Tylenol) 650 mg CA Q6H PRN PRN Reason: FEVER Acetylcysteine (Acetylcysteine 200 Mg/Ml Sdv 4 Ml) 100 mg INHALATION TID [facility] Last Admin: 06/26/20 14:05 Dose: Not Given Documented by: Albuterol Sulfate (Ventolin) 2 puff INHALATION Q4H.RESPIRATORY PRN PRN Reason: SHORTNESS OF BREATH Albuterol/Ipratropium (Ipratropium-Albuterol 3 Ml Neb) 3 ml INHALATION TID [facility] Last Admin: 06/26/20 14:05 Dose: 3 ml Documented by: Amiodarone HCl (Amiodarone 200 Mg Tablet) 400 mg PO BID [facility] Last Admin: 06/26/20 09:17 Dose: 400 mg Documented by: Apixaban (Apixaban 5 Mg Tablet) 5 mg PO BID [facility] Last Admin: 06/26/20 09:18 Dose: 5 mg Documented by: Atorvastatin Calcium (Lipitor) 40 mg PO BEDTIME [facility] Last Admin: 06/25/20 20:11 Dose: 40 mg Documented by: Bisacodyl (Bisac-Evac) 10 mg CA DAILY PRN PRN Reason: Constipation Dextrose (D50w) 25 ml IVP ONCE PRN; Protocol PRN Reason: hypoglycemia protocol Last Admin: 06/15/20 23:03 Dose: 25 ml Documented by: Dextrose (D50w) 50 ml IVP PRN PRN; Protocol PRN Reason: hypoglycemia protocol Folic Acid (Folic Acid) 1 mg PO DAILY [facility] Last Admin: 06/26/20 09:16 Dose: 1 mg Documented by: Furosemide (Furosemide 10 Mg/Ml Sdv 4ml) 40 mg IVP Q24H [facility] Last Admin: 06/26/20 09:15 Dose: 40 mg Documented by: Glucagon (Glucagen) 1 mg IM ONCE PRN; Protocol PRN Reason: Adult Acute Hypoglycemia Prot. Dextrose (D5w) 500 mls @ 100 mls/hr IV ONCE PRN; Protocol PRN Reason: Adult Acute Hypoglycemia Prot Imipenem/Cilastatin Sodium 500 (mg/ Sodium Chloride) 100 mls @ 200 mls/hr IV Q6H [facility] Last Admin: 06/26/20 16:50 Dose: 200 mls/hr Documented by: Dextrose/Sodium Chloride (Dextrose 5%-Sod Chloride 0.45%) 1,000 mls @ 50 mls/hr IV .Q20H [facility] Last Admin: 06/26/20 16:49 Dose: 50 mls/hr Documented by: Levothyroxine Sodium (Synthroid) 225 mcg PO DAILY [facility] Last Admin: 06/26/20 09:15 Dose: 225 mcg Documented by: Magnesium Oxide (Magnesium Oxide 400 Mg Tablet) 400 mg PO BID [facility] Last Admin: 06/26/20 09:16 Dose: 400 mg Documented by: Metoprolol Tartrate (Metoprolol Tartrate 25 Mg Tablet) 25 mg PO BID [facility] Last Admin: 06/26/20 09:17 Dose: 25 mg Documented by: Morphine Sulfate (Morphine 4 Mg/Ml Sdv 1 Ml) 2 mg IVP Q4H PRN PRN Reason: SEVERE PAIN Last Admin: 06/24/20 04:08 Dose: 2 mg Documented by: Nystatin (Nystatin Powder 15 Gm Btl) 1 applic TOPICAL BID PRN PRN Reason: under folds Last Admin: 06/25/20 23:51 Dose: 1 applic Documented by: Ondansetron HCl (Zofran) 4 mg IVP Q6H PRN PRN Reason: NAUSEA AND VOMITING Pantoprazole Sodium (Pantoprazole Dr 40 Mg Tablet) 40 mg PO BID [facility] Last Admin: 06/26/20 09:19 Dose: 40 mg Documented by: Prednisone (Prednisone 20 Mg Tablet) 20 mg PO DAILY [facility] Last Admin: 06/26/20 09:18 Dose: 20 mg Documented by: Vitals/I&O/Wt Last Vital Signs Temp 97.6 F 06/26/20 16:45 Pulse 94 06/26/20 16:45 Resp 39 H 06/26/20 16:45 BP 100/73 06/26/20 16:45 Pulse Ox 96 06/26/20 16:45 06/26/20 06/26/20 06/26/20 06:59 14:59 22:59 Intake Total 350 / 1670 440 / 440 1000 / 1440 Output Total 600 / 2000 Balance -250 / -330 440 / 440 1000 / 1440 Weight last 48 hrs Weight 289 lb 2 oz Weight 282 lb 11.2 oz Weight 283 lb Physical Exam Narrative: EXAM NARRATIVE: GENERAL:obese lady sitting in chair; currently on 2-3 L of O2 HEENT: Pupils equal round reactive to light. Mild pallor or icterus. NECK: JVD not appreciated, No carotid bruit. CARDIOVASCULAR SYSTEM: S1-S2 irregular. ;No murmur rubs or gallops. RESPIRATORY SYSTEM:tachypnea+ Decreased breath sounds on bilateral bases no wheezes rhonchi or rubs heard. EXTREMITIES: No cyanosis. trace edema. warm extremeties METAL LOADER: Patient is alert oriented ?3. SKIN: left mid abad erythema+, skin breakdown presently dressed Urinary Catheter Management^: Boswell: Cath Placed During This Visit: yes Reason for Continuing Indwelling Catheter: Accurate Measurement of Urinary Output in Critically Ill Patients Urinary Catheter Date of Insertion: 06/15/20 Urinary Catheter Time of Insertion: 19:50 Data : 06/26/20 04:34 06/26/20 04:34 CT Chest: Radiologist's impression: FINDINGS: Lungs: There is compressive atelectasis of both lower lobes and some portions of the posterior aspect of the left upper lobe. Pleural space: There are moderate bilateral pleural effusions. Pleural effusions are slightly larger than on the the previous examination. Heart: The heart is moderately enlarged. There is a large pericardial fluid collection present. Pericardial effusion measures up to 2 cm in thickness. Aorta: There is atherosclerotic change in the aortic arch and descending thoracic aorta. Lymph nodes: Unremarkable. No enlarged lymph nodes. Intraperitoneal space: Some fluid is also seen tracking in the major fissure on the right. Bones/joints: There is mild scoliosis concave to the left. Soft tissues: Unremarkable. IMPRESSION: 1. Bilateral pleural effusions. 2. Cardiomegaly. 3. Pericardial effusion. 4. Bilateral compressive atelectasis. CT Abd/Pel: Radiologist's impression: IMPRESSION: 1. Stable large left hepatic lobe cystic lesion unchanged. Today this measures approximately 13.4 x 13.8 x 14.1 cm. Differential considerations are unchanged and include echinococcal cyst, biliary cystadenoma, and atypical hepatic adenoma. 2. Prior cholecystectomy. 3. Small to moderate pericardial effusion partially visualized. 4. Small left greater than right pleural effusions. Compressive atelectasis left lower lobe. 5. Bilateral renal cortical atrophy with atrophic kidneys. 6. Previously. Ventral abdominal wall hernia with ectatic anterior abdominal wall. No evidence of high-grade obstruction. 7. Small amount of free fluid in the pelvis. 8. Boswell catheter in place. Attestation for Other Data: I personally reviewed and interpreted the following: Other data: Transthoracic echocardiogram 22 June 2020 CONCLUSIONS 1. This is a limited study. 2. Normal left ventricular size and systolic function with no diagnsotic regional wall motion abnormalities. Left ventricular ejection fraction is estimated at 60 %. 3. Moderate circumferential pericardial effusion. No evidence of tamponade physiology. A&P Assessment and plan (1) Respiratory failure with hypoxia: Likely a mix of PNA and dCHF; bilateral pleural effusion with Right lower lung consolidation. On empiric antibiotics. Chest PT and management per primary and pulmonary team. Status: Acute Qualifiers: Chronicity: acute on chronic Qualified Code(s): J96.21 - Acute and chronic respiratory failure with hypoxia (2) Atrial fibrillation with RVR: -RVR resolved Patient is off cardizem drip and digoxin. -She has a history of chronic anemia requiring intermittent blood transfusion with negative prior work-up. -change amiodarone to 200 BID [id number] x 1 week and then 200 mg daily. -continue metoprolol tartrate 25 mg PO BID and Eliquis. Status: Acute (3) Acute exacerbation of CHF (congestive heart failure): I will give her additional lasix 20 mg x 1. She remains in net positive balance. Status: Acute Qualifiers: Heart failure type: diastolic Qualified Code(s): I50.33 - Acute on chronic diastolic (congestive) heart failure (4) Pericardial effusion without cardiac tamponade: Repeat echo done bedside showed Moderate circumferential pericardial effusion. -No evidence of tamponade physiology presently. -I discussed her case with Dr. Ureña in detail and decision was made to hold off on tap presently in absence of tamponade physiology. - I had a long discussion with the patient's daughter Constance and updated her of patient's current status. All her questions were appropriately answered. Status: Acute (5) Shock liver: liver enzymes improving and have near normalized. AST 15 today and ALT at 58. Alkaline phosphatase 121. Status: Acute (6) Elevated troponin: Status: Acute (7) Hypotension: Hypotension likely a mix of A. fib with RVR and medication induced. -Underlying sepsis is a possibility and hence was covered with broad-spectrum antibiotics initially. Lung being the possible source. - she is off Levophed and diltiazem. -resolved. Status: Acute Qualifiers: Hypotension type: unspecified hypotension type Qualified Code(s): I95.9 - Hypotension, unspecified Additional A&P Information PIETER: renal function improving, nephrology on board Bilateral pleural effusion Anemia: recieved 2 units of pRBC; hemoglobin dropped somewhat to 8.7 today; she is being followed by Dr. Hansen as an outpatient Thrombocytopenia: Platelets 77 today Mild to moderate Hypernatremia: Resolved Possible PNA Hypoalbuminemia History of stroke/TIA in September 2019 Thank you for allowing me to participate in patient's care. Please feel free to call with questions or concerns Attestations Medical Necessity Statement*: As per primary team Coding Level of Care Code Acute Drapery And Upholstery Estimator for [facility] Diagnoses Respiratory failure with hypoxia J96.21 Chronicity: acute on chronic Atrial fibrillation with RVR I48.91 Acute exacerbation of CHF (congestive heart failure) I50.33 Heart failure type: diastolic Pericardial effusion without cardiac tamponade I31.3 Shock liver K72.00 Elevated troponin R79.89 Hypotension I95.9 Hypotension type: unspecified hypotension type
[2020-06-26] MEDS: FUROsemide 10 mg/mL SDV 2mL 20 MG IVP (18:08)
[2020-06-26] MEDS: atorvastatin 40 mg Tablet PO (21:51)
[2020-06-27] VITALS (19 sets, daily range): BP systolic 80–137; BP diastolic 25–100; PULSE 66–113; RESP 12–40; TEMP 35.7–39.3; O2SAT 93–100
[2020-06-27 04:55] LABS: Basophils % 0.3 %; Eosinophils % 0.3 %; Hematocrit 29.7 % (37.0-47.0); Hemoglobin 8.3 g/dL (11.5-15.3); Lymphocytes # 0.5 10^3/uL (0.8-4.8); Lymphocytes % 14.6 %; Mean Corpuscular HGB Conc 27.9 g/dL (30.0-36.0); Mean Corpuscular Hemoglobin 26.5 pg (28.0-34.0); Mean Corpuscular Volume 94.9 fL (81-99); Mean Platelet Volume 12.4 fL (7.4-10.4); Monocytes # 0.4 10^3/uL (0.2-0.9); Neutrophils # 2.65 10^3/uL (1.8-7.7); Neutrophils % 73.2 %; Nucleated Red Blood Cells % 0 %; Platelet Count 92 10^3/cmm (130-400); Red Blood Count 3.13 10^6/uL (4.1-5.3); Red Cell Distribution Width 21.6 % (12.1-15.1); White Blood Count 3.6 10^3/uL (4.0-10.0)
[2020-06-27 05:19] LABS: Alanine Aminotransferase 43 U/L (0-33); Albumin Level 2.3 g/dL (3.5-5.2); Alkaline Phosphatase 121 IU/L (35-105); Anion Gap 11.5 (5-19); Aspartate Amino Transferase 12 U/L (0-32); Blood Urea Nitrogen 26 mg/dL (8-23); Carbon Dioxide 31 mmol/L (22-29); Chloride 105 mmol/L (98-107); Glucose 104 mg/dL (65-115); Magnesium 1.7 mg/dL (1.7-2.3); Osmolality Calculated 303 mOsm/kg (285-295); Potassium 3.5 mmol/L (3.5-5.1); Sodium 144 mmol/L (136-145); Total Bilirubin 0.8 mg/dL (0.15-1.2); Total Protein 5.3 g/dL (6.6-8.7)
--- NOTE | 2020-06-27 06:44 | PC.NURSE ---
ASSUMING CARE Upon change of shift patient was doing well sitting up in bed on 3L nasal cannula. Patient denied any pain and said she was comfortable.
--- NOTE | 2020-06-27 07:13 | PC.NURSE ---
SKIN Patient was bathed last night prior to bedtime. Patients skin in groin area extremely excoriated and open areas to bilateral buttocks redressed with optifoams. Patients linens changed and nystatin powder placed in excoriated areas.
[2020-06-27] MEDS: acetylcysteine 200 mg/mL SDV 4 mL 100 MG INHALATION ×3 (08:15→21:40)
[2020-06-27] MEDS: ipratropium-albuterol 3 mL Neb INHALATION ×3 (08:15→21:30)
[2020-06-27] MEDS: levothyroxine 150 mcg Tablet 225 MCG PO (08:33)
[2020-06-27] MEDS: metoprolol tartrate 25 mg Tablet PO ×2 (08:33→17:31)
[2020-06-27] MEDS: apixaban 5 mg Tablet PO (08:34)
[2020-06-27] MEDS: amiodarone 200 mg Tablet 400 MG PO ×2 (08:34→17:30)
[2020-06-27] MEDS: magnesium oxide 400 mg tablet PO ×2 (08:34→17:31)
[2020-06-27] MEDS: folic acid 1 mg Tablet PO (08:34)
[2020-06-27] MEDS: predniSONE 20 mg Tablet PO (08:35)
[2020-06-27] MEDS: pantoprazole DR 40 mg Tablet PO ×2 (08:35→17:31)
--- NOTE | 2020-06-27 08:39 | PC.NURSE ---
Spoke with DR. Riggs regarding no documented BM since admit. Pt states she has not had one but does not feel uncomfortable. She is passing a large amount of gas this am. New orders for Colace to start.
--- NOTE | 2020-06-27 09:23 | PC.NURSE ---
REport called to CSU. URine noted to have some red color to it. Dr. Riggs notified.
--- NOTE | 2020-06-27 09:26 | PC.CHAP ---
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 [] Patient/Family/Request visit [] Outpatient visit [] Follow-up visit [] Physician referral [] Code/Alert [] Routine visit [] Staff referral [] Actively dying [] Patient sleeping [] Family support [] [] Out of room [] Palliative care [] [] Receiving care in room [] Pre-surgical visit [] Trauma [] Long length of stay [] ICU visit [] Other: Relational/Emotional Strength [] Patient feels connected with others/family/visitors/staff [] Distress [] Loneliness/isolation [] Abandonment Spirituality of Patient [] Person of Tenisha [] Attends Restoration of their Tenisha [] Believes in Prayer [] Reads Bible or Hindu materials [] There are Spiritual issues to be addressed Unit Assistant Interventions [x] Prayer [] Active listening [] Non-anxious presence [] Spiritual/emotional support [] Crisis/trauma care [] Spiritual counseling [] Bereavement support [] Provided bereavement packet [] Provided Bible/devotional materials [] Provided toy/stuffed animal, coloring book to patient or family member [] Provided Communion [] Anointing/[place] [] Salvation [x] Completed spiritual assessment [] Other: Impact on Illness or Injury [] Angry [] Fearful [] Anxious [] Often cries [] Exhaustion [] Unable to work [] Unable to attend evangelical [] Unable to walk/stand [] Unable to read [] Unable to drive [] Unable to eat/drink [] Unable to sleep [] Unable to be with family [] Patient intubated [] Other: Summary Time spent with patient
--- NOTE | 2020-06-27 10:30 | PC.NURSE ---
Dr. Riggs notified of hematuria. Physician to put eliquis on hold. No further intervention at this time. Nurse to continue to monitor.
--- NOTE | 2020-06-27 10:45 | PM.PN ---
Subjective Subjective: Interval history: Ms Abelino deal is doing good.Her SOB has improved a lot.Minimal Hematuria was seen in morrison catheter today. She has remained afebrile.Has good urine output. H.R is well controlled. She is participating in Physical therapy. Medications: Reviewed: Yes Medication Review Details: Current Medications Acetaminophen (Acetaminophen 325 Mg Tablet) 650 mg PO Q6H PRN PRN Reason: MILD PAIN Last Admin: 06/22/20 19:35 Dose: 650 mg Documented by: Acetaminophen (Tylenol) 650 mg TX Q6H PRN PRN Reason: FEVER Acetylcysteine (Acetylcysteine 200 Mg/Ml Sdv 4 Ml) 100 mg INHALATION TID [facility] Last Admin: 06/26/20 14:05 Dose: Not Given Documented by: Albuterol Sulfate (Ventolin) 2 puff INHALATION Q4H.RESPIRATORY PRN PRN Reason: SHORTNESS OF BREATH Albuterol/Ipratropium (Ipratropium-Albuterol 3 Ml Neb) 3 ml INHALATION TID [facility] Last Admin: 06/26/20 14:05 Dose: 3 ml Documented by: Amiodarone HCl (Amiodarone 200 Mg Tablet) 400 mg PO BID [facility] Last Admin: 06/26/20 09:17 Dose: 400 mg Documented by: Apixaban (Apixaban 5 Mg Tablet) 5 mg PO BID [facility] Last Admin: 06/26/20 09:18 Dose: 5 mg Documented by: Atorvastatin Calcium (Lipitor) 40 mg PO BEDTIME [facility] Last Admin: 06/25/20 20:11 Dose: 40 mg Documented by: Bisacodyl (Bisac-Evac) 10 mg TX DAILY PRN PRN Reason: Constipation Dextrose (D50w) 25 ml IVP ONCE PRN; Protocol PRN Reason: hypoglycemia protocol Last Admin: 06/15/20 23:03 Dose: 25 ml Documented by: Dextrose (D50w) 50 ml IVP PRN PRN; Protocol PRN Reason: hypoglycemia protocol Folic Acid (Folic Acid) 1 mg PO DAILY [facility] Last Admin: 06/26/20 09:16 Dose: 1 mg Documented by: Furosemide (Furosemide 10 Mg/Ml Sdv 4ml) 40 mg IVP Q24H [facility] Last Admin: 06/26/20 09:15 Dose: 40 mg Documented by: Glucagon (Glucagen) 1 mg IM ONCE PRN; Protocol PRN Reason: Adult Acute Hypoglycemia Prot. Dextrose (D5w) 500 mls @ 100 mls/hr IV ONCE PRN; Protocol PRN Reason: Adult Acute Hypoglycemia Prot Imipenem/Cilastatin Sodium 500 (mg/ Sodium Chloride) 100 mls @ 200 mls/hr IV Q6H [facility] Last Admin: 06/26/20 16:50 Dose: 200 mls/hr Documented by: Dextrose/Sodium Chloride (Dextrose 5%-Sod Chloride 0.45%) 1,000 mls @ 50 mls/hr IV .Q20H [facility] Last Admin: 06/26/20 16:49 Dose: 50 mls/hr Documented by: Levothyroxine Sodium (Synthroid) 225 mcg PO DAILY [facility] Last Admin: 06/26/20 09:15 Dose: 225 mcg Documented by: Magnesium Oxide (Magnesium Oxide 400 Mg Tablet) 400 mg PO BID [facility] Last Admin: 06/26/20 09:16 Dose: 400 mg Documented by: Metoprolol Tartrate (Metoprolol Tartrate 25 Mg Tablet) 25 mg PO BID [facility] Last Admin: 06/26/20 09:17 Dose: 25 mg Documented by: Morphine Sulfate (Morphine 4 Mg/Ml Sdv 1 Ml) 2 mg IVP Q4H PRN PRN Reason: SEVERE PAIN Last Admin: 06/24/20 04:08 Dose: 2 mg Documented by: Nystatin (Nystatin Powder 15 Gm Btl) 1 applic TOPICAL BID PRN PRN Reason: under folds Last Admin: 06/25/20 23:51 Dose: 1 applic Documented by: Ondansetron HCl (Zofran) 4 mg IVP Q6H PRN PRN Reason: NAUSEA AND VOMITING Pantoprazole Sodium (Pantoprazole Dr 40 Mg Tablet) 40 mg PO BID [facility] Last Admin: 06/26/20 09:19 Dose: 40 mg Documented by: Prednisone (Prednisone 20 Mg Tablet) 20 mg PO DAILY [facility] Last Admin: 06/26/20 09:18 Dose: 20 mg Documented by: Vitals/I&O/Wt Last Vital Signs Temp 96.8 F L 06/27/20 10:00 Pulse 91 06/27/20 10:00 Resp 18 06/27/20 10:00 BP 122/100 06/27/20 10:00 Pulse Ox 98 06/27/20 10:01 06/26/20 06/27/20 06/27/20 22:59 06:59 14:59 Intake Total 1460 / 1900 200 / 2100 320 / 320 Output Total 1150 / 1150 1700 / 2850 Balance 310 / 750 -1500 / -750 320 / 320 Weight last 48 hrs Weight 116.664 kg Weight 131.145 kg Weight 128.231 kg Physical Exam Const: COMMON NORMALS: patient oriented x3 HENMT: COMMON NORMALS: normocephalic and atraumatic HEAD & SCALP: normocephalic and atraumatic Resp: COMMON NORMALS: clear to auscultation bilaterally AUSCULTATION: clear to auscultation bilaterally Cardio: COMMON NORMALS: regular rate, regular rhythm and No rub (Cardio) RATE: regular rate RHYTHM: regular rhythm OTHER: S1,S2 of variable intensity GI: COMMON NORMALS: Normal to inspection, nondistended, normoactive bowel sounds present, Soft to palpation, non-tender, No hepatosplenomegaly present and no masses AUSCULTATION: Yes normoactive bowel sounds PALPATION: Yes Soft to palpation and Yes No hepatosplenomegaly present RECTAL EXAM: deferred Extremity: COMMON NORMALS: no clubbing, cyanosis or edema and no pedal edema NARRATIVE EXTREMITY EXAM: lt wrist redness and swelling OTHER: Trace b/l l/e edema. Neuro: COMMON NORMALS: patient oriented x3 Urinary Catheter Management^: Morrison: Cath Placed During This Visit: yes Reason for Continuing Indwelling Catheter: Accurate Measurement of Urinary Output in Critically Ill Patients Urinary Catheter Date of Insertion: 06/15/20 Urinary Catheter Time of Insertion: 19:50 Data : 06/27/20 03:00 06/27/20 03:00 A&P Assessment and plan (1) Acute exacerbation of CHF (congestive heart failure): -Ac on Chronic HFpEF; exacerbation given -Elevated BNP elevation (8909), B/L LE edema with chronic changes -On I.V Diuresis ( Currently on Lasix 40 I.V Daily ) -repeat Echo: EF=55%, G2DD, small to moderate pericardial effusion but no tamponade physiology. Status: Acute Qualifiers: Heart failure type: diastolic Qualified Code(s): I50.33 - Acute on chronic diastolic (congestive) heart failure (2) Respiratory failure with hypoxia: Ac hypoxic R/F Multifactorial ( PNA , Cradiogenic shock) : Post discharge from hospital after the managment of COVID PNA she was consitenetly requiring 3 l oxygen at longterm. During this hospital stay she required HHFNC as well as BIPAP. At one point in time she was low threshold for intubation. Currently with the improvement in PNA, sepsis with multiorgan failure ,cardiogenic shock, afib with RVR,her --supplemental oxygen requirement is also going down. She is requiring 2-3 L oxygen -influenza, bacterial antigens, Legionella, MRSA negative. -rapid COVID-19 test negative. Recently treated for COVID-19 pneumonia requiring hospitalization. Imaging Studies: Most Recent C.T chest without Contrast done on 06/23: has shown : compressive atelectasis of both lower lobes and some portions of the posterior aspect of the left upper lobe. Pleural space: There are moderate bilateral pleural effusions. Pleural effusions are slightly larger than on the the previous examination. Heart: The heart is moderately enlarged. There is a large pericardial fluid collection present. Pericardial effusion measures up to 2 cm in thickness. Aorta: - Continue to monitor ABG, Xray chest, - Imipenam has been discontinued on 06/27/2020 - Pulmonary medicine (Dr. Benton ) was consulted. Yet to give final rec and sign off the patient.Last official note is from 06/19. Expect to see Status: Acute Qualifiers: Chronicity: acute on chronic Qualified Code(s): J96.21 - Acute and chronic respiratory failure with hypoxia (3) Gout attack: Possible gout flare on lt wrist,though not typical site.R.F includes ( Obesity, CHF ) Ac Onset of redness and swellinG and joint pain developed overnight Will avoid colchicine ( Diarrhea ) and NSAIDS (CHF ) . On Prednisone 20 mg oral daily, has lead to significant improvement. Will discontinue Predispose after completing 5 days.(06/26) Status: Acute (4) Septic shock: -Shock with multiorgan involvement likely mix of sepsis 2/2 PNA as well as cardiogenic due to pericardial effusion without tamponade physiology. Resolved as evidenced by Resolved leukocytosis, off pressor support, no lactic acidosis -Was on Primax (06/18-06-26 ) , Vancomycin , levofloxacin and aztreonam.Currently all ABxs have been discontinued. -CT A/P has not shown any source of intrabdominal infection -blood cx , urine , sputum and catheter tip culture have shown no growth so far. -UA was indicative of infection; urine cx negative. Status: Acute (5) Pericardial effusion: Without Tamponade physiology.Has been monitored with serial echo. Last Serial echo done on : 06/22: Normal left ventricular size and systolic function with no diagnostic regional wall motion abnormalities. Left ventricular ejection fraction is estimated at 60 %. Moderate circumferential pericardial effusion. No evidence of tamponade physiology. Intervention cardiology has been consulted for the same and he is of the opinion to monitor it for now. Status: Acute (6) Atrial fibrillation with RVR: -Currently on Metoprolol T 25MG Q12 H Daily -As well as amiodarone 400 mg Q12H Daily . -Per Cardiology Recommendations ( 200 mg BID [id number] x 1 week and then 200 mg daily. -continue metoprolol tartrate 25 mg PO BID ) -HR is well controlled. -Eliquis was restarted on ( 06/23 )-Kept on hold from 06/27 as she was having hematuria. -Will Monitor CBC and plan to restart. Status: Acute (7) Shock liver: - Is on the way to resolving. -Earlier significant increase in LFTs indicating acute liver failure -likely related to shock as noted above -has known large left hepatic lobe lesion; stable per repeat imaging -continue to trend LFTs Status: Acute (8) Acute kidney injury: -Resolved -baseline Cr appears to be around 1.2-1.6 -off IV fluid hydration -Continue to monitor renal function, renally dose meds, avoid nephrotoxins -CPK wnl -nephrology consult appreciated -good urine output overnight; has Morrison catheter in place -UA with some proteinuria, blood Status: Acute (9) Sepsis: -as noted above Status: Acute Qualifiers: Sepsis type: sepsis due to unspecified organism Sepsis acute organ dysfunction status: with acute organ dysfunction Severe sepsis acute organ dysfunction type: acute respiratory failure Acute respiratory failure type: with hypoxia Severe sepsis shock status: with septic shock Qualified Code(s): A41.9 - Sepsis, unspecified organism; R65.21 - Severe sepsis with septic shock; J96.01 - Acute respiratory failure with hypoxia (10) Hematuria: Monitor CBC for now. Hold Eliquis Status: Acute (11) Elevated troponin: -noted elevated troponins with no significant delta x 2 hrs -this is likely type II due to demand ischemia secondary to severe sepsis -Echo (09/2019): EF=55%, no RWMA, biatrial enlargement, mild-moderate , mild TR. Repeat Echo noted above Status: Acute (12) Anemia: -baseline Hg is around 9. -continue to trend H/H; - Status: Chronic Qualifiers: Anemia type: unspecified type Qualified Code(s): D64.9 - Anemia, unspecified (13) Aortic stenosis: -noted mild to moderate per last Echo (09/2019) Status: Chronic Qualifiers: Cardiac valve disease etiology: etiology unspecified Qualified Code(s): I35.0 - Nonrheumatic aortic (valve) stenosis (14) Hyperlipidemia: -on statin Status: Chronic Qualifiers: Hyperlipidemia type: unspecified Qualified Code(s): E78.5 - Hyperlipidemia, unspecified (15) Hypertension: Metoprolol.T 25 MG Q12 H Daily Status: Chronic Qualifiers: Hypertension type: essential hypertension Qualified Code(s): I10 - Essential (primary) hypertension (16) Pulmonary embolism: -Prior hx of PE -On Eliquis Status: Chronic Qualifiers: Pulmonary embolism type: unspecified Chronicity: chronic Acute cor pulmonale presence: unspecified Qualified Code(s): I27.82 - Chronic pulmonary embolism (17) Elevated INR: -Coagulopathy likely related to liver failure and shock -Venous duplex negative for DVT -CTA was not done initially due to renal impairment. -Now resolved. -Ac has been resumed -Monitor for bleeding Status: Acute (18) Physical deconditioning: Patient has severe physical deconditioning. PT is on board Status: Acute Additional A&P Information -Morbid obesity: BMI-44 kg/m2 -hx of hypothyroidism; on levothyroxine -LE edema and ulcers; wound care as needed -Thrombocytopenia; Stable. Monitor P.C -hypoalbuminemia; Have received albumin once. will promote good diet with Boost. -GI ppx with PPI -DVT ppx -Dispo: return to [facility] -Code status: FULL code; -prognosis:Fair given resolution of multiorgan failure Attestations Medical Necessity Statement*: Patient needs to be in hospital for the management of R.F,CHF,Pericardial effusion,PNA,A.FIB. 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 Ty Diagnoses Acute exacerbation of CHF (congestive heart failure) I50.33 Heart failure type: diastolic Respiratory failure with hypoxia J96.21 Chronicity: acute on chronic Gout attack M10.9 Septic shock A41.9; R65.21 Pericardial effusion I31.3 Atrial fibrillation with RVR I48.91 Shock liver K72.00 Acute kidney injury N17.9 Sepsis A41.9; R65.21; J96.01 Sepsis type: sepsis due to unspecified organism Sepsis acute organ dysfunction status: with acute organ dysfunction Severe sepsis acute organ dysfunction type: acute respiratory failure Acute respiratory failure type: with hypoxia Severe sepsis shock status: with septic shock Hematuria R31.9 Elevated troponin R79.89 Anemia D64.9 Anemia type: unspecified type Aortic stenosis I35.0 Cardiac valve disease etiology: etiology unspecified Hyperlipidemia E78.5 Hyperlipidemia type: unspecified Hypertension I10 Hypertension type: essential hypertension Pulmonary embolism I27.82 Pulmonary embolism type: unspecified Chronicity: chronic Acute cor pulmonale presence: unspecified Elevated INR R79.1 Physical deconditioning R53.81
[2020-06-27] MEDS: dextrose 5%-sod chloride 0.45% 1,000 ML 50 ML IV (10:54)
[2020-06-27] MEDS: FUROsemide 10 mg/mL SDV 4mL 40 MG IVP (10:58)
[2020-06-27 11:33] LABS: Glucose Point of Care 109 mg/dL (70-110)
[2020-06-27 16:21] LABS: Glucose Point of Care 123 mg/dL (70-110)
--- NOTE | 2020-06-27 19:46 | PC.NURSE ---
PAtient resting in her chair watching TV. PAtient denies any needs at this time and is alert and oriented.
[2020-06-27] MEDS: atorvastatin 40 mg Tablet PO (20:22)
[2020-06-27 20:50] LABS: Glucose Point of Care 135 mg/dL (70-110)
--- NOTE | 2020-06-27 22:53 | PC.NURSE ---
Patient wants to sleep in her chair. RT notified about about patient wanting her bipap. Patient asleep in her chair. RT unable to place bipap while patient in her chair. Will talk to patient when she wakes up.
[2020-06-28] VITALS (12 sets, daily range): BP systolic 127–163; BP diastolic 71–101; PULSE 71–92; RESP 16–42; TEMP 35.6–36.8; O2SAT 95–99
--- NOTE | 2020-06-28 01:38 | PC.NURSE ---
Patient wore her bipap for a few hours took it off stating it hurt her nose and made her head itch . RT put her nasal cannula back on.
[2020-06-28 04:58] LABS: Basophils % 0.2 %; Eosinophils % 0.2 %; Hemoglobin 9.2 g/dL (11.5-15.3); Lymphocytes # 0.7 10^3/uL (0.8-4.8); Mean Corpuscular HGB Conc 27.1 g/dL (30.0-36.0); Mean Corpuscular Hemoglobin 26.1 pg (28.0-34.0); Mean Corpuscular Volume 96.3 fL (81-99); Mean Platelet Volume 12.1 fL (7.4-10.4); Monocytes # 0.4 10^3/uL (0.2-0.9); Monocytes % 10.7 %; Neutrophils # 2.93 10^3/uL (1.8-7.7); Neutrophils % 71.4 %; Nucleated Red Blood Cells % 0 %; Platelet Count 115 10^3/cmm (130-400); Red Blood Count 3.53 10^6/uL (4.1-5.3); Red Cell Distribution Width 21.8 % (12.1-15.1); White Blood Count 4.1 10^3/uL (4.0-10.0)
[2020-06-28 05:20] LABS: Alanine Aminotransferase 36 U/L (0-33); Albumin Level 2.8 g/dL (3.5-5.2); Alkaline Phosphatase 137 IU/L (35-105); Blood Urea Nitrogen 26 mg/dL (8-23); Calcium 8.3 mg/dL (8.5-10.5); Carbon Dioxide 31 mmol/L (22-29); Chloride 104 mmol/L (98-107); Globulin 3.5 g/dL (1.3-4.6); Glucose 102 mg/dL (65-115); Magnesium 1.9 mg/dL (1.7-2.3); Osmolality Calculated 299 mOsm/kg (285-295); Sodium 142 mmol/L (136-145); Total Bilirubin 0.8 mg/dL (0.15-1.2); Total Protein 6.3 g/dL (6.6-8.7)
[2020-06-28 05:49] LABS: Aspartate Amino Transferase 16 U/L (0-32)
[2020-06-28 06:41] LABS: Glucose Point of Care 99 mg/dL (70-110)
[2020-06-28] MEDS: ipratropium-albuterol 3 mL Neb INHALATION ×3 (08:10→21:09)
[2020-06-28] MEDS: dextrose 5%-sod chloride 0.45% 1,000 ML 50 ML IV (08:22)
[2020-06-28] MEDS: levothyroxine 150 mcg Tablet 225 MCG PO (08:26)
[2020-06-28] MEDS: magnesium oxide 400 mg tablet PO ×2 (08:27→18:37)
[2020-06-28] MEDS: amiodarone 200 mg Tablet 400 MG PO ×2 (08:27→18:36)
[2020-06-28] MEDS: metoprolol tartrate 25 mg Tablet PO ×2 (08:28→18:37)
[2020-06-28] MEDS: folic acid 1 mg Tablet PO (08:29)
[2020-06-28] MEDS: pantoprazole DR 40 mg Tablet PO ×2 (08:29→18:37)
[2020-06-28] MEDS: FUROsemide 10 mg/mL SDV 4mL 40 MG IVP (08:29)
[2020-06-28] MEDS: apixaban 5 mg Tablet 2.5 MG PO ×2 (10:25→18:38)
--- NOTE | 2020-06-28 10:48 | DCPLANNER ---
IMM completed on 06/28/2020 @ 1030. Copy of rights given to pt.
[2020-06-28 11:14] LABS: Glucose Point of Care 93 mg/dL (70-110)
--- NOTE | 2020-06-28 15:04 | P.PN_ITS ---
Subjective Subjective: Interval history: is doing fine,has remained afebrile,has good urine output.She is tolerating diet well,has participated in physical therapy and her progress is moving in the right direction. Other vitals and labs have been reviewed. Medications: Reviewed: Yes Medication Review Details: Current Medications Acetaminophen (Acetaminophen 325 Mg Tablet) 650 mg PO Q6H PRN PRN Reason: MILD PAIN Last Admin: 06/22/20 19:35 Dose: 650 mg Documented by: Acetaminophen (Tylenol) 650 mg [place] Q6H PRN PRN Reason: FEVER Acetylcysteine (Acetylcysteine 200 Mg/Ml Sdv 4 Ml) 100 mg INHALATION TID [facility] Last Admin: 06/26/20 14:05 Dose: Not Given Documented by: Albuterol Sulfate (Ventolin) 2 puff INHALATION Q4H.RESPIRATORY PRN PRN Reason: SHORTNESS OF BREATH Albuterol/Ipratropium (Ipratropium-Albuterol 3 Ml Neb) 3 ml INHALATION TID [facility] Last Admin: 06/26/20 14:05 Dose: 3 ml Documented by: Amiodarone HCl (Amiodarone 200 Mg Tablet) 400 mg PO BID [facility] Last Admin: 06/26/20 09:17 Dose: 400 mg Documented by: Apixaban (Apixaban 5 Mg Tablet) 5 mg PO BID [facility] Last Admin: 06/26/20 09:18 Dose: 5 mg Documented by: Atorvastatin Calcium (Lipitor) 40 mg PO BEDTIME [facility] Last Admin: 06/25/20 20:11 Dose: 40 mg Documented by: Bisacodyl (Bisac-Evac) 10 mg [place] DAILY PRN PRN Reason: Constipation Dextrose (D50w) 25 ml IVP ONCE PRN; Protocol PRN Reason: hypoglycemia protocol Last Admin: 06/15/20 23:03 Dose: 25 ml Documented by: Dextrose (D50w) 50 ml IVP PRN PRN; Protocol PRN Reason: hypoglycemia protocol Folic Acid (Folic Acid) 1 mg PO DAILY [facility] Last Admin: 06/26/20 09:16 Dose: 1 mg Documented by: Furosemide (Furosemide 10 Mg/Ml Sdv 4ml) 40 mg IVP Q24H [facility] Last Admin: 06/26/20 09:15 Dose: 40 mg Documented by: Glucagon (Glucagen) 1 mg IM ONCE PRN; Protocol PRN Reason: Adult Acute Hypoglycemia Prot. Dextrose (D5w) 500 mls @ 100 mls/hr IV ONCE PRN; Protocol PRN Reason: Adult Acute Hypoglycemia Prot Imipenem/Cilastatin Sodium 500 (mg/ Sodium Chloride) 100 mls @ 200 mls/hr IV Q6H [facility] Last Admin: 06/26/20 16:50 Dose: 200 mls/hr Documented by: Dextrose/Sodium Chloride (Dextrose 5%-Sod Chloride 0.45%) 1,000 mls @ 50 mls/hr IV .Q20H [facility] Last Admin: 06/26/20 16:49 Dose: 50 mls/hr Documented by: Levothyroxine Sodium (Synthroid) 225 mcg PO DAILY [facility] Last Admin: 06/26/20 09:15 Dose: 225 mcg Documented by: Magnesium Oxide (Magnesium Oxide 400 Mg Tablet) 400 mg PO BID [facility] Last Admin: 06/26/20 09:16 Dose: 400 mg Documented by: Metoprolol Tartrate (Metoprolol Tartrate 25 Mg Tablet) 25 mg PO BID [facility] Last Admin: 06/26/20 09:17 Dose: 25 mg Documented by: Morphine Sulfate (Morphine 4 Mg/Ml Sdv 1 Ml) 2 mg IVP Q4H PRN PRN Reason: SEVERE PAIN Last Admin: 06/24/20 04:08 Dose: 2 mg Documented by: Nystatin (Nystatin Powder 15 Gm Btl) 1 applic TOPICAL BID PRN PRN Reason: under folds Last Admin: 06/25/20 23:51 Dose: 1 applic Documented by: Ondansetron HCl (Zofran) 4 mg IVP Q6H PRN PRN Reason: NAUSEA AND VOMITING Pantoprazole Sodium (Pantoprazole Dr 40 Mg Tablet) 40 mg PO BID [facility] Last Admin: 06/26/20 09:19 Dose: 40 mg Documented by: Prednisone (Prednisone 20 Mg Tablet) 20 mg PO DAILY [facility] Last Admin: 06/26/20 09:18 Dose: 20 mg Documented by: Vitals/I&O/Wt Last Vital Signs Temp 97.6 F 06/28/20 14:49 Pulse 74 06/28/20 14:49 Resp 16 06/28/20 14:49 BP 127/73 06/28/20 14:49 Pulse Ox 99 06/28/20 14:49 06/28/20 06/28/20 06/28/20 06:59 14:59 22:59 Intake Total 100 / 2017.500 1103.333 / 1103.333 Output Total 600 / 2100 1000 / 1000 Balance -500 / -82.500 103.333 / 103.333 Weight last 48 hrs Weight 117.934 kg Weight 116.664 kg Physical Exam Const: COMMON NORMALS: patient oriented x3 HENMT: COMMON NORMALS: normocephalic and atraumatic HEAD & SCALP: normocephalic and atraumatic Chest: CHEST: Yes Symmetrical chest wall rise Resp: COMMON NORMALS: normal respiratory effort and clear to auscultation isak aterally EFFORT & INSPECTION: Yes symmetric chest movement AUSCULTATION: clear to auscultation bilaterally Cardio: COMMON NORMALS: regular rate, regular rhythm, S1 normal heart sound present, S2 normal heart sound present, No gallops present (Cardio), No murmurs present (Cardio), No rub (Cardio) and Peripheral pulses 2+ throughout RATE: regular rate RHYTHM: regular rhythm HEART SOUNDS: S1 normal heart sound present and S2 normal heart sound present PERIPHERAL PULSES: Peripheral pulses 2+ throughout OTHER: S1,S2 of variable intensity GI: COMMON NORMALS: Normal to inspection, nondistended, normoactive bowel sounds present, Soft to palpation, non-tender, No hepatosplenomegaly present and no masses AUSCULTATION: Yes normoactive bowel sounds PALPATION: Yes Soft to palpation and Yes No hepatosplenomegaly present RECTAL EXAM: deferred Extremity: NARRATIVE EXTREMITY EXAM: lt wrist redness and swelling OTHER: Trace b/l l/e edema. Neuro: COMMON NORMALS: patient oriented x3 Urinary Catheter Management^: Boswell: Cath Placed During This Visit: yes Reason for Continuing Indwelling Catheter: Accurate Measurement of Urinary Output in Critically Ill Patients Urinary Catheter Date of Insertion: 06/15/20 Urinary Catheter Time of Insertion: 19:50 Data : 06/29/20 04:20 06/29/20 04:20 A&P Assessment and plan (1) Acute exacerbation of CHF (congestive heart failure): -Ac on Chronic HFpEF; exacerbation given -Elevated BNP elevation (8909), B/L LE edema with chronic changes -Currently on Lasix 40 I.V Daily -repeat Echo: EF=55%, G2DD, small to moderate pericardial effusion but no tamponade physiology. Status: Acute Qualifiers: Heart failure type: diastolic Qualified Code(s): I50.33 - Acute on chronic diastolic (congestive) heart failure (2) Respiratory failure with hypoxia: Ac hypoxic R/F Multifactorial ( PNA , Cradiogenic shock) : Post discharge from hospital after the managment of COVID PNA she was consitenetly requiring 3 l oxygen at snf. During this hospital stay she required HHFNC as well as BIPAP. At one point in time she was low threshold for intubation. Currently with the improvement in PNA, sepsis with multiorgan failure ,cardiogenic shock, afib with RVR,her --supplemental oxygen requirement is also going down. She is requiring 2-3 L oxygen -influenza, bacterial antigens, Legionella, MRSA negative. -rapid COVID-19 test negative. Recently treated for COVID-19 pneumonia requiring hospitalization. Imaging Studies: Most Recent C.T chest without Contrast done on 06/23: has shown : compressive atelectasis of both lower lobes and some portions of the posterior aspect of the left upper lobe. Pleural space: There are moderate bilateral pleural effusions. Pleural effusions are slightly larger than on the the previous examination. Heart: The heart is moderately enlarged. There is a large pericardial fluid collection present. Pericardial effusion measures up to 2 cm in thickness. Aorta: - Continue to monitor ABG, Xray chest, - Imipenam has been discontinued on 06/27/2020 - Pulmonary medicine (Dr. Benton ) was consulted. Yet to give final rec and sign off the patient.Last official note is from 06/19. Status: Acute Qualifiers: Chronicity: acute on chronic Qualified Code(s): J96.21 - Acute and chronic respiratory failure with hypoxia (3) Gout attack: Possible gout flare on lt wrist,though not typical site.R.F includes ( Obesity, CHF ) Ac Onset of redness and swellinG and joint pain developed overnight Will avoid colchicine ( Diarrhea ) and NSAIDS (CHF ) . On Prednisone 20 mg oral daily, has lead to significant improvement. Predispose was discontinued Status: Acute (4) Septic shock: -Shock with multiorgan involvement likely mix of sepsis 2/2 PNA as well as cardiogenic due to pericardial effusion without tamponade physiology. Resolved as evidenced by Resolved leukocytosis, off pressor support, no lactic acidosis -Was on Primax (06/18-06-26 ) , Vancomycin , levofloxacin and aztreonam.Currently all ABxs have been discontinued. -CT A/P has not shown any source of intrabdominal infection -blood cx , urine , sputum and catheter tip culture have shown no growth so far. -UA was indicative of infection; urine cx negative. Status: Acute (5) Pericardial effusion: Without Tamponade physiology.Has been monitored with serial echo. Last Serial echo done on : 06/22: Normal left ventricular size and systolic function with no diagnostic regional wall motion abnormalities. Left ventricular ejection fraction is estimated at 60 %. Moderate circumferential pericardial effusion. No evidence of tamponade physiology. Intervention cardiology has been consulted for the same and he is of the opinion to monitor it for now. Status: Acute (6) Atrial fibrillation with RVR: -Currently on Metoprolol T 25MG Q12 H Daily -As well as amiodarone 400 mg Q12H Daily . -Per Cardiology Recommendations ( 200 mg BID [id number] x 1 week and then 200 mg daily. -continue metoprolol tartrate 25 mg PO BID ) -HR is well controlled. -Eliquis was restarted on ( 06/23 )-Kept on hold from 06/27 as she was having hematuria. -Will Monitor CBC and plan to restart. Status: Acute (7) Shock liver: - Resolved -Earlier significant increase in LFTs indicating acute liver failure -likely related to shock as noted above -has known large left hepatic lobe lesion; stable per repeat imaging -continue to trend LFTs Status: Acute (8) Acute kidney injury: -Resolved -baseline Cr appears to be around 1.2-1.6 -off IV fluid hydration -Continue to monitor renal function, renally dose meds, avoid nephrotoxins -CPK wnl -nephrology consult appreciated -good urine output overnight; has Boswell catheter in place -UA with some proteinuria, blood Status: Acute (9) Sepsis: -as noted above Status: Acute Qualifiers: Sepsis type: sepsis due to unspecified organism Sepsis acute organ dysfunction status: with acute organ dysfunction Severe sepsis acute organ dysfunction type: acute respiratory failure Acute respiratory failure type: with hypoxia Severe sepsis shock status: with septic shock Qualified Code(s): A41.9 - Sepsis, unspecified organism; R65.21 - Severe sepsis with septic shock; J96.01 - Acute respiratory failure with hypoxia (10) Hematuria: No ongoing hematuria H/H is holding. Eliquis resumed at lower dose of 2.5 mg q12 h daily Status: Acute (11) Elevated troponin: -noted elevated troponins with no significant delta x 2 hrs -this is likely type II due to demand ischemia secondary to severe sepsis -Echo (09/2019): EF=55%, no RWMA, biatrial enlargement, mild-moderate , mild TR. Repeat Echo noted above Status: Acute (12) Anemia: -baseline Hg is around 9. -continue to trend H/H; - Status: Chronic Qualifiers: Anemia type: unspecified type Qualified Code(s): D64.9 - Anemia, unspecified (13) Aortic stenosis: -noted mild to moderate per last Echo (09/2019) Status: Chronic Qualifiers: Cardiac valve disease etiology: etiology unspecified Qualified Code(s): I35.0 - Nonrheumatic aortic (valve) stenosis (14) Hyperlipidemia: -on statin Status: Chronic Qualifiers: Hyperlipidemia type: unspecified Qualified Code(s): E78.5 - Hyperlipidemia, unspecified (15) Hypertension: Metoprolol.T 25 MG Q12 H Daily Status: Chronic Qualifiers: Hypertension type: essential hypertension Qualified Code(s): I10 - Essential (primary) hypertension (16) Pulmonary embolism: -Prior hx of PE -On Eliquis Status: Chronic Qualifiers: Pulmonary embolism type: unspecified Chronicity: chronic Acute cor pulmonale presence: unspecified Qualified Code(s): I27.82 - Chronic pulmonary embolism (17) Elevated INR: -Coagulopathy likely related to liver failure and shock -Venous duplex negative for DVT -CTA was not done initially due to renal impairment. -Now resolved. -Ac has been resumed -Monitor for bleeding Status: Acute (18) Physical deconditioning: Patient has severe physical deconditioning. PT is on board Status: Acute Additional A&P Information -Morbid obesity: BMI-44 kg/m2 -hx of hypothyroidism; on levothyroxine -LE edema and ulcers; wound care as needed -Thrombocytopenia; Stable. Monitor P.C -hypoalbuminemia; Have received albumin once. will promote good diet with Boost. -GI ppx with PPI -DVT ppx -Dispo: return to [facility] -Code status: FULL code; -prognosis:Fair given resolution of multiorgan failure Attestations Medical Necessity Statement*: Patient needs to be in hospital for the management of CHF Exacerbation,R.F,sepsis,pericardial effusion. Coding Level of Care Code Acute [employer] for g Fwd Diagnoses Acute exacerbation of CHF (congestive heart failure) I50.33 Heart failure type: diastolic Respiratory failure with hypoxia J96.21 Chronicity: acute on chronic Gout attack M10.9 Septic shock A41.9; R65.21 Pericardial effusion I31.3 Atrial fibrillation with RVR I48.91 Shock liver K72.00 Acute kidney injury N17.9 Sepsis A41.9; R65.21; J96.01 Sepsis type: sepsis due to unspecified organism Sepsis acute organ dysfunction status: with acute organ dysfunction Severe sepsis acute organ dysfunction type: acute respiratory failure Acute respiratory failure type: with hypoxia Severe sepsis shock status: with septic shock Hematuria R31.9 Elevated troponin R79.89 Anemia D64.9 Anemia type: unspecified type Aortic stenosis I35.0 Cardiac valve disease etiology: etiology unspecified Hyperlipidemia E78.5 Hyperlipidemia type: unspecified Hypertension I10 Hypertension type: essential hypertension Pulmonary embolism I27.82 Pulmonary embolism type: unspecified Chronicity: chronic Acute cor pulmonale presence: unspecified Elevated INR R79.1 Physical deconditioning R53.81
[2020-06-28] MEDS: acetylcysteine 200 mg/mL SDV 4 mL 100 MG INHALATION ×2 (15:07→21:10)
[2020-06-28 16:16] LABS: Glucose Point of Care 108 mg/dL (70-110)
[2020-06-28] MEDS: FUROsemide 10 mg/mL SDV 2mL 20 MG IVP (18:39)
[2020-06-28] MEDS: atorvastatin 40 mg Tablet PO (20:03)
[2020-06-28 20:24] LABS: Glucose Point of Care 110 mg/dL (70-110)
[2020-06-29] VITALS (15 sets, daily range): BP systolic 107–126; BP diastolic 67–100; PULSE 77–94; RESP 18–40; TEMP 35.7–36.7; O2SAT 90–100
[2020-06-29] MEDS: dextrose 5%-sod chloride 0.45% 1,000 ML 50 ML IV (03:35)
[2020-06-29 05:07] LABS: Basophils % 0.9 %; Eosinophils # 0.3 10^3/uL (0.0-0.8); Eosinophils % 5.6 %; Hematocrit 31.7 % (37.0-47.0); Hemoglobin 8.8 g/dL (11.5-15.3); Lymphocytes # 0.8 10^3/uL (0.8-4.8); Lymphocytes % 16.7 %; Mean Corpuscular HGB Conc 27.8 g/dL (30.0-36.0); Mean Corpuscular Hemoglobin 26.5 pg (28.0-34.0); Mean Corpuscular Volume 95.5 fL (81-99); Mean Platelet Volume 11.9 fL (7.4-10.4); Monocytes # 0.6 10^3/uL (0.2-0.9); Monocytes % 12.8 %; Neutrophils # 2.96 10^3/uL (1.8-7.7); Neutrophils % 63.1 %; Nucleated Red Blood Cells % 0 %; Platelet Count 123 10^3/cmm (130-400); Red Blood Count 3.32 10^6/uL (4.1-5.3); Red Cell Distribution Width 21.9 % (12.1-15.1); White Blood Count 4.7 10^3/uL (4.0-10.0)
[2020-06-29 05:28] LABS: Alanine Aminotransferase 25 U/L (0-33); Albumin Level 2.8 g/dL (3.5-5.2); Alkaline Phosphatase 126 IU/L (35-105); Anion Gap 10.2 (5-19); Aspartate Amino Transferase 10 U/L (0-32); Blood Urea Nitrogen 23 mg/dL (8-23); Calcium 8.1 mg/dL (8.5-10.5); Carbon Dioxide 35 mmol/L (22-29); Chloride 105 mmol/L (98-107); Glucose 87 mg/dL (65-115); Magnesium 1.8 mg/dL (1.7-2.3); Osmolality Calculated 307 mOsm/kg (285-295); Potassium 3.2 mmol/L (3.5-5.1); Sodium 147 mmol/L (136-145); Total Bilirubin 0.7 mg/dL (0.15-1.2); Total Protein 5.8 g/dL (6.6-8.7)
[2020-06-29 06:42] LABS: Glucose Point of Care 118 mg/dL (70-110)
[2020-06-29] MEDS: metoprolol tartrate 25 mg Tablet PO ×2 (08:57→17:40)
[2020-06-29] MEDS: magnesium oxide 400 mg tablet PO ×2 (08:57→17:40)
[2020-06-29] MEDS: amiodarone 200 mg Tablet 400 MG PO ×2 (08:57→17:41)
[2020-06-29] MEDS: folic acid 1 mg Tablet PO (08:58)
[2020-06-29] MEDS: levothyroxine 150 mcg Tablet 225 MCG PO (08:58)
[2020-06-29] MEDS: pantoprazole DR 40 mg Tablet PO ×2 (08:59→17:41)
[2020-06-29] MEDS: apixaban 5 mg Tablet 2.5 MG PO ×2 (09:00→17:41)
[2020-06-29] MEDS: bisacodyl 10 mg Supp PR (09:01)
[2020-06-29] MEDS: FUROsemide 10 mg/mL SDV 4mL 40 MG IVP (09:02)
--- NOTE | 2020-06-29 09:10 | PC.NURSE ---
Dr. Baum notified at 902 that patient K is 3.2 and is to receive 40 mg lasix IVP. Telephone order received to administer 40 meq KCl PO ONCE. RBTO.
[2020-06-29] MEDS: acetylcysteine 200 mg/mL SDV 4 mL 100 MG INHALATION ×3 (09:39→21:05)
[2020-06-29] MEDS: ipratropium-albuterol 3 mL Neb INHALATION ×3 (09:39→21:05)
--- NOTE | 2020-06-29 09:40 | PC.NURSE ---
Patient tachypneic 30-40 breaths per minutes, SOB, lungs course bilaterally to auscultation posteriorly. Lung sounds very diminished on right side. Patient on nasal cannula. Dr. Baum notified at 0920. Telephone order to stop IV fluids, RBTO. Fluids stopped. Patient placed on Bipap. Respiratory notified. Nurse to continue to monitor.
[2020-06-29] MEDS: potassium chloride ER 10 mEq Tablet 40 MEQ PO (10:03)
--- NOTE | 2020-06-29 10:04 | PC.NURSE ---
Patient placed on nasal cannula for medication administration. Bipap resumed.
[2020-06-29 11:26] LABS: Glucose Point of Care 109 mg/dL (70-110)
--- NOTE | 2020-06-29 11:56 | PM.PN ---
Subjective Subjective: Interval history: 74-year-old female with a past medical history significant for hypertension, dyslipidemia, hypothyroidism, paroxysmal atrial fibrillation /flutter on anticoagulation, gastroesophageal reflux disease, pulmonary embolism, recent diagnosis of COVID-19 pneumonia with subsequent chronic hypoxemic respiratory failure requring 3L of o2 via NC who presented to the hospital with shortness of breath. She was noted to be hypoxc with oxygen saturation in mid-high 80s. Laboratory workup on arrival showed a WBC of 17.6, hemoglobin of 8.5, hematocrit 30.8 and a platelet count of 167. sodium 136, potassium 5.3, chloride 101, bicarb 20, BUN 56 and creatinine of 3.4. Lactic acid elevated at 2.7. AST of 4722, ALT of 2328 and alkaline phosphatase of 211. total bilirubin of 1.4. Creatinine kinase of 189. She was noted to have marked hypotension with SBP < 90 on admission. Chest x-ray on admission showed marked cardiomegaly with significant improvement of right pleural effusion. Left chest Continue show opacification primarily in lower lobe. Subjective 06/29 Patient was noted to be respiatory distress. require placement of bipap Medications: Reviewed: Yes Medication Review Details: Current Medications Acetaminophen (Acetaminophen 325 Mg Tablet) 650 mg PO Q6H PRN PRN Reason: MILD PAIN Last Admin: 06/22/20 19:35 Dose: 650 mg Documented by: Acetaminophen (Tylenol) 650 mg TN Q6H PRN PRN Reason: FEVER Acetylcysteine (Acetylcysteine 200 Mg/Ml Sdv 4 Ml) 100 mg INHALATION TID [facility] Last Admin: 06/26/20 14:05 Dose: Not Given Documented by: Albuterol Sulfate (Ventolin) 2 puff INHALATION Q4H.RESPIRATORY PRN PRN Reason: SHORTNESS OF BREATH Albuterol/Ipratropium (Ipratropium-Albuterol 3 Ml Neb) 3 ml INHALATION TID [facility] Last Admin: 06/26/20 14:05 Dose: 3 ml Documented by: Amiodarone HCl (Amiodarone 200 Mg Tablet) 400 mg PO BID [facility] Last Admin: 06/26/20 09:17 Dose: 400 mg Documented by: Apixaban (Apixaban 5 Mg Tablet) 5 mg PO BID [facility] Last Admin: 06/26/20 09:18 Dose: 5 mg Documented by: Atorvastatin Calcium (Lipitor) 40 mg PO BEDTIME [facility] Last Admin: 06/25/20 20:11 Dose: 40 mg Documented by: Bisacodyl (Bisac-Evac) 10 mg TN DAILY PRN PRN Reason: Constipation Dextrose (D50w) 25 ml IVP ONCE PRN; Protocol PRN Reason: hypoglycemia protocol Last Admin: 06/15/20 23:03 Dose: 25 ml Documented by: Dextrose (D50w) 50 ml IVP PRN PRN; Protocol PRN Reason: hypoglycemia protocol Folic Acid (Folic Acid) 1 mg PO DAILY [facility] Last Admin: 06/26/20 09:16 Dose: 1 mg Documented by: Furosemide (Furosemide 10 Mg/Ml Sdv 4ml) 40 mg IVP Q24H [facility] Last Admin: 06/26/20 09:15 Dose: 40 mg Documented by: Glucagon (Glucagen) 1 mg IM ONCE PRN; Protocol PRN Reason: Adult Acute Hypoglycemia Prot. Dextrose (D5w) 500 mls @ 100 mls/hr IV ONCE PRN; Protocol PRN Reason: Adult Acute Hypoglycemia Prot Imipenem/Cilastatin Sodium 500 (mg/ Sodium Chloride) 100 mls @ 200 mls/hr IV Q6H [facility] Last Admin: 06/26/20 16:50 Dose: 200 mls/hr Documented by: Dextrose/Sodium Chloride (Dextrose 5%-Sod Chloride 0.45%) 1,000 mls @ 50 mls/hr IV .Q20H [facility] Last Admin: 06/26/20 16:49 Dose: 50 mls/hr Documented by: Levothyroxine Sodium (Synthroid) 225 mcg PO DAILY [facility] Last Admin: 06/26/20 09:15 Dose: 225 mcg Documented by: Magnesium Oxide (Magnesium Oxide 400 Mg Tablet) 400 mg PO BID [facility] Last Admin: 06/26/20 09:16 Dose: 400 mg Documented by: Metoprolol Tartrate (Metoprolol Tartrate 25 Mg Tablet) 25 mg PO BID [facility] Last Admin: 06/26/20 09:17 Dose: 25 mg Documented by: Morphine Sulfate (Morphine 4 Mg/Ml Sdv 1 Ml) 2 mg IVP Q4H PRN PRN Reason: SEVERE PAIN Last Admin: 06/24/20 04:08 Dose: 2 mg Documented by: Nystatin (Nystatin Powder 15 Gm Btl) 1 applic TOPICAL BID PRN PRN Reason: under folds Last Admin: 06/25/20 23:51 Dose: 1 applic Documented by: Ondansetron HCl (Zofran) 4 mg IVP Q6H PRN PRN Reason: NAUSEA AND VOMITING Pantoprazole Sodium (Pantoprazole Dr 40 Mg Tablet) 40 mg PO BID [facility] Last Admin: 06/26/20 09:19 Dose: 40 mg Documented by: Prednisone (Prednisone 20 Mg Tablet) 20 mg PO DAILY [facility] Last Admin: 06/26/20 09:18 Dose: 20 mg Documented by: Vitals/I&O/Wt Last Vital Signs Temp 96.5 F L 06/29/20 11:09 Pulse 87 06/29/20 11:09 Resp 32 H 06/29/20 11:09 BP 120/79 06/29/20 11:09 Pulse Ox 100 06/29/20 11:09 06/28/20 06/29/20 06/29/20 22:59 06:59 14:59 Intake Total 360 / 8241.391 5815.833 / 2524.166 411.667 / 411.667 Output Total 1000 / 1999 1000 / 3000 Balance -640 / -536.667 60.833 / -475.834 411.667 / 411.667 Weight last 48 hrs Weight 125.827 kg Weight 117.934 kg Physical Exam Narrative: EXAM NARRATIVE: General: Chronically ill appearing HEENT : Grossly unremakable CHEST : Decrease Breath sound, crackles CVS : Tachycardic ABD; Non-tender Ext ; Bilateral LE edema Urinary Catheter Management^: Boswell: Cath Placed During This Visit: yes Reason for Continuing Indwelling Catheter: Accurate Measurement of Urinary Output in Critically Ill Patients Urinary Catheter Date of Insertion: 06/15/20 Urinary Catheter Time of Insertion: 19:50 Data : 06/29/20 04:20 06/29/20 04:20 A&P Assessment and plan (1) Acute exacerbation of CHF (congestive heart failure): -Ac on Chronic HFpEF; exacerbation given -Elevated BNP elevation (8909), B/L LE edema with chronic changes -Currently on Lasix 40 I.V Daily -repeat Echo: EF=55%, G2DD, small to moderate pericardial effusion but no tamponade physiology. -Replace K as needed -Monitor daily weight -May need to further increase lasix Status: Acute Qualifiers: Heart failure type: diastolic Qualified Code(s): I50.33 - Acute on chronic diastolic (congestive) heart failure (2) Respiratory failure with hypoxia: Ac hypoxic R/F Multifactorial ( PNA , Cradiogenic shock) : Post discharge from hospital after the managment of COVID PNA she was consitenetly requiring 3 l oxygen at skilled nursing. During this hospital stay she required HHFNC as well as BIPAP. At one point in time she was low threshold for intubation. Currently with the improvement in PNA, sepsis with multiorgan failure ,cardiogenic shock, afib with RVR,her --supplemental oxygen requirement is also going down. She is requiring 2-3 L oxygen -influenza, bacterial antigens, Legionella, MRSA negative. -rapid COVID-19 test negative. Recently treated for COVID-19 pneumonia requiring hospitalization. Imaging Studies: Most Recent C.T chest without Contrast done on 06/23: has shown : compressive atelectasis of both lower lobes and some portions of the posterior aspect of the left upper lobe. Pleural space: There are moderate bilateral pleural effusions. Pleural effusions are slightly larger than on the the previous examination. Heart: The heart is moderately enlarged. There is a large pericardial fluid collection present. Pericardial effusion measures up to 2 cm in thickness. Aorta: - Continue Bipap for now - wean as tolerated - repeat chest x-ray in am - Imipenam has been discontinued on 06/27/2020 - Pulmonary medicine (Dr. Benton ) was consulted. Yet to give final rec and sign off the patient.Last official note is from 06/19. Status: Acute Qualifiers: Chronicity: acute on chronic Qualified Code(s): J96.21 - Acute and chronic respiratory failure with hypoxia (3) Gout attack: Possible gout flare on lt wrist,though not typical site.R.F includes ( Obesity, CHF ) Ac Onset of redness and swellinG and joint pain developed overnight Will avoid colchicine ( Diarrhea ) and NSAIDS (CHF ) . On Prednisone 20 mg oral daily, has lead to significant improvement. Predispose was discontinued - Currently stable Status: Acute (4) Septic shock: -Shock with multiorgan involvement likely mix of sepsis 2/2 PNA as well as cardiogenic due to pericardial effusion without tamponade physiology. Resolved as evidenced by Resolved leukocytosis, off pressor support, no lactic acidosis -Was on Primax (06/18-06-26 ) , Vancomycin , levofloxacin and aztreonam.Currently all ABxs have been discontinued. -CT A/P has not shown any source of intrabdominal infection -blood cx , urine , sputum and catheter tip culture have shown no growth so far. -UA was indicative of infection; urine cx negative. Status: Acute (5) Pericardial effusion: Without Tamponade physiology.Has been monitored with serial echo. Last Serial echo done on : 06/22: Normal left ventricular size and systolic function with no diagnostic regional wall motion abnormalities. Left ventricular ejection fraction is estimated at 60 %. Moderate circumferential pericardial effusion. No evidence of tamponade physiology. Intervention cardiology has been consulted for the same and he is of the opinion to monitor it for now. Status: Acute (6) Atrial fibrillation with RVR: -Currently on Metoprolol T 25MG Q12 H Daily -As well as amiodarone 400 mg Q12H Daily . -Per Cardiology Recommendations ( 200 mg BID [id number]/20 x 1 week and then 200 mg daily. -continue metoprolol tartrate 25 mg PO BID ) -HR is well controlled. -Eliquis was restarted on ( 06/23 )-Kept on hold from 06/27 as she was having hematuria. -Will Monitor CBC and plan to restart. Status: Acute (7) Shock liver: - Resolved -Earlier significant increase in LFTs indicating acute liver failure -likely related to shock as noted above -has known large left hepatic lobe lesion; stable per repeat imaging -continue to trend LFTs Status: Acute (8) Acute kidney injury: -Resolved -baseline Cr appears to be around 1.2-1.6 -off IV fluid hydration -Continue to monitor renal function, renally dose meds, avoid nephrotoxins -CPK wnl -nephrology consult appreciated -good urine output overnight; has Boswell catheter in place -UA with some proteinuria, blood Status: Acute (9) Sepsis: -as noted above Status: Acute Qualifiers: Acute respiratory failure type: with hypoxia Sepsis acute organ dysfunction status: with acute organ dysfunction Sepsis type: sepsis due to unspecified organism Severe sepsis acute organ dysfunction type: acute respiratory failure Severe sepsis shock status: with septic shock Qualified Code(s): A41.9 - Sepsis, unspecified organism; R65.21 - Severe sepsis with septic shock; J96.01 - Acute respiratory failure with hypoxia (10) Hematuria: No ongoing hematuria H/H is holding. Eliquis resumed at lower dose of 2.5 mg q12 h daily Status: Acute (11) Elevated troponin: -noted elevated troponins with no significant delta x 2 hrs -this is likely type II due to demand ischemia secondary to severe sepsis -Echo (09/2019): EF=55%, no RWMA, biatrial enlargement, mild-moderate , mild TR. Repeat Echo noted above Status: Acute (12) Anemia: -baseline Hg is around 9. -continue to trend H/H; - Status: Chronic Qualifiers: Anemia type: unspecified type Qualified Code(s): D64.9 - Anemia, unspecified (13) Aortic stenosis: -noted mild to moderate per last Echo (09/2019) Status: Chronic Qualifiers: Cardiac valve disease etiology: etiology unspecified Qualified Code(s): I35.0 - Nonrheumatic aortic (valve) stenosis (14) Hyperlipidemia: -on statin Status: Chronic Qualifiers: Hyperlipidemia type: unspecified Qualified Code(s): E78.5 - Hyperlipidemia, unspecified (15) Hypertension: Metoprolol.T 25 MG Q12 H Daily Status: Chronic Qualifiers: Hypertension type: essential hypertension Qualified Code(s): I10 - Essential (primary) hypertension (16) Pulmonary embolism: -Prior hx of PE -On Eliquis Status: Chronic Qualifiers: Acute cor pulmonale presence: unspecified Chronicity: chronic Pulmonary embolism type: unspecified Qualified Code(s): I27.82 - Chronic pulmonary embolism (17) Elevated INR: -Coagulopathy likely related to liver failure and shock -Venous duplex negative for DVT -CTA was not done initially due to renal impairment. -Now resolved. -Ac has been resumed -Monitor for bleeding Status: Acute (18) Physical deconditioning: Patient has severe physical deconditioning. PT is on board Status: Acute Additional A&P Information -Morbid obesity: BMI-44 kg/m2 -hx of hypothyroidism; on levothyroxine -LE edema and ulcers; wound care as needed -Thrombocytopenia; Stable. Monitor P.C -hypoalbuminemia; Have received albumin once. will promote good diet with Boost. -GI ppx with PPI -DVT ppx -Dispo: return to [facility] -Code status: FULL code; -prognosis:Fair given resolution of multiorgan failure Attestations Medical Necessity Statement*: Due to ongoing respiratory failure will require further hospitalization for BIPAP, IV lasix and titration of oxygen Time Spent in Patient Care: Greater than 35 minutes Coding Level of Care Code Acute Driller Portable for Belinda Ty Diagnoses Acute exacerbation of CHF (congestive heart failure) I50.33 Heart failure type: diastolic Respiratory failure with hypoxia J96.21 Chronicity: acute on chronic Gout attack M10.9 Septic shock A41.9; R65.21 Pericardial effusion I31.3 Atrial fibrillation with RVR I48.91 Shock liver K72.00 Acute kidney injury N17.9 Sepsis A41.9; R65.21; J96.01 Acute respiratory failure type: with hypoxia Sepsis acute organ dysfunction status: with acute organ dysfunction Sepsis type: sepsis due to unspecified organism Severe sepsis acute organ dysfunction type: acute respiratory failure Severe sepsis shock status: with septic shock Hematuria R31.9 Elevated troponin R79.89 Anemia D64.9 Anemia type: unspecified type Aortic stenosis I35.0 Cardiac valve disease etiology: etiology unspecified Hyperlipidemia E78.5 Hyperlipidemia type: unspecified Hypertension I10 Hypertension type: essential hypertension Pulmonary embolism I27.82 Acute cor pulmonale presence: unspecified Chronicity: chronic Pulmonary embolism type: unspecified Elevated INR R79.1 Physical deconditioning R53.81
[2020-06-29 16:15] LABS: Glucose Point of Care 106 mg/dL (70-110)
[2020-06-29 18:54] LABS: Glucose Point of Care 102 mg/dL (70-110)
[2020-06-29] MEDS: atorvastatin 40 mg Tablet PO (20:29)
[2020-06-29 21:08] LABS: Glucose Point of Care 104 mg/dL (70-110)
[2020-06-30] VITALS (14 sets, daily range): BP systolic 98–131; BP diastolic 55–97; PULSE 77–100; RESP 18–38; TEMP 36.4–37.4; O2SAT 95–100
[2020-06-30 04:59] LABS: Basophils % 0.5 %; Eosinophils # 0.1 10^3/uL (0.0-0.8); Eosinophils % 3.6 %; Hematocrit 30.1 % (37.0-47.0); Hemoglobin 8.3 g/dL (11.5-15.3); Lymphocytes # 0.7 10^3/uL (0.8-4.8); Lymphocytes % 18.6 %; Mean Corpuscular HGB Conc 27.6 g/dL (30.0-36.0); Mean Corpuscular Hemoglobin 26.8 pg (28.0-34.0); Mean Corpuscular Volume 97.1 fL (81-99); Mean Platelet Volume 12.3 fL (7.4-10.4); Monocytes # 0.5 10^3/uL (0.2-0.9); Monocytes % 12.5 %; Neutrophils # 2.52 10^3/uL (1.8-7.7); Nucleated Red Blood Cells % 0 %; Platelet Count 119 10^3/cmm (130-400); Red Cell Distribution Width 21.9 % (12.1-15.1); White Blood Count 3.9 10^3/uL (4.0-10.0)
[2020-06-30 05:48] LABS: Alanine Aminotransferase 18 U/L (0-33); Albumin Level 2.8 g/dL (3.5-5.2); Alkaline Phosphatase 119 IU/L (35-105); Anion Gap 7.4 (5-19); Aspartate Amino Transferase 11 U/L (0-32); Blood Urea Nitrogen 22 mg/dL (8-23); Calcium 8.3 mg/dL (8.5-10.5); Carbon Dioxide 35 mmol/L (22-29); Chloride 102 mmol/L (98-107); Globulin 2.7 g/dL (1.3-4.6); Glucose 79 mg/dL (65-115); Osmolality Calculated 294 mOsm/kg (285-295); Potassium 3.4 mmol/L (3.5-5.1); Sodium 141 mmol/L (136-145); Total Bilirubin 0.8 mg/dL (0.15-1.2); Total Protein 5.5 g/dL (6.6-8.7)
[2020-06-30 07:01] LABS: Glucose Point of Care 84 mg/dL (70-110)
[2020-06-30] MEDS: magnesium oxide 400 mg tablet PO ×2 (09:06→17:58)
[2020-06-30] MEDS: apixaban 5 mg Tablet 2.5 MG PO ×2 (09:07→17:58)
[2020-06-30] MEDS: pantoprazole DR 40 mg Tablet PO ×2 (09:08→17:57)
[2020-06-30] MEDS: metoprolol tartrate 25 mg Tablet PO ×2 (09:08→17:57)
[2020-06-30] MEDS: folic acid 1 mg Tablet PO (09:12)
[2020-06-30] MEDS: levothyroxine 150 mcg Tablet 225 MCG PO (09:12)
[2020-06-30] MEDS: amiodarone 200 mg Tablet 400 MG PO (09:14)
[2020-06-30] MEDS: FUROsemide 10 mg/mL SDV 4mL 40 MG IVP ×2 (09:15→17:58)
--- NOTE | 2020-06-30 09:47 | DCPLANNER ---
IMM completed on 06/30/20 @ [id number]. Copy of rights given to pt.
[2020-06-30] MEDS: ipratropium-albuterol 3 mL Neb INHALATION ×3 (10:30→21:01)
[2020-06-30] MEDS: acetylcysteine 200 mg/mL SDV 4 mL 100 MG INHALATION ×3 (10:30→21:02)
[2020-06-30 10:56] LABS: Glucose Point of Care 116 mg/dL (70-110)
--- NOTE | 2020-06-30 11:55 | P.PN_ITS ---
Subjective Subjective: Interval history: 74-year-old female with a past medical history significant for hypertension, dyslipidemia, hypothyroidism, paroxysmal atrial fibrillation /flutter on anticoagulation, gastroesophageal reflux disease, pulmonary embolism, recent diagnosis of COVID-19 pneumonia with subsequent chronic hypoxemic respiratory failure requring 3L of o2 via [place] who presented to the hospital with shortness of breath. She was noted to be hypoxc with oxygen saturation in mid-high 80s. Laboratory workup on arrival showed a WBC of 17.6, hemoglobin of 8.5, hematocrit 30.8 and a platelet count of 167. sodium 136, potassium 5.3, chloride 101, bicarb 20, BUN 56 and creatinine of 3.4. Lactic acid elevated at 2.7. AST of 4722, ALT of 2328 and alkaline phosphatase of 211. total bilirubin of 1.4. Creatinine kinase of 189. She was noted to have marked hypotension with SBP < 90 on admission. Patient was started on IV Levophed. Addition to required vasopressin. This was weaned off. Patient was suspected to have septic shock vs cardiogenic shock. CT abdomen pelvis without contrast was performed which showed a partially visualized small moderate pericardial effusion, pleural effusion compressive atelectasis of left lower lobe, small right pleural effusion This was complicated with atrial fibrillation with rapid ventricular response. Cardiology was consulted and patietn was started on amiodarone. In addition was also started on metoprolol 25 mg PO BID and eliquis for cva prevention. Pericardial effusion was assessed with echocardiogram which showed pEF at 55% with grade 2 diastolic dysfunction. Small to moderate pericardial effusion loculated more along the left ventricular free wass was noted with out any evidence of tamponade physiology. Due to lack of tamponade physiology no tap was performed. During hospitalization patient continued to require intermittent use of BIPAP and supplemental oxygen. Further a CT chest was performed which showed compressive atelectasis of both lower lobes in some portions of the posterior aspect of the left upper lobe. Mo derate bilateral pleural effusions which has slightly increased from prior were noted. Again notation of large pericardial fluid was seen. Patient continued to require dieresis with Lasix 40 mg IV daily. PRN additional doses were given. Unclear if accurate recordings however wt increased to 131kg then decreased to 122K on 06/30. Additionally noted to have a large left hepatic lobe cystic lesion measuring 13.4 x 13.8 x 14.1 which was unchanged from prior. Chest x-ray on admission showed marked cardiomegaly with significant improvement of right pleural effusion. Left chest Continue show opacification primarily in lower lobe. Subjective 06/29 Patient was noted to be respiratory distress. require placement of bipap 06/30 Continue to require supplemental oxygen with use of BIPAP Medications: Reviewed: Yes Medication Review Details: Current Medications Acetaminophen (Acetaminophen 325 Mg Tablet) 650 mg PO Q6H PRN PRN Reason: MILD PAIN Last Admin: 06/22/20 19:35 Dose: 650 mg Documented by: Acetaminophen (Tylenol) 650 mg ME Q6H PRN PRN Reason: FEVER Acetylcysteine (Acetylcysteine 200 Mg/Ml Sdv 4 Ml) 100 mg INHALATION TID [facility] Last Admin: 06/26/20 14:05 Dose: Not Given Documented by: Albuterol Sulfate (Ventolin) 2 puff INHALATION Q4H.RESPIRATORY PRN PRN Reason: SHORTNESS OF BREATH Albuterol/Ipratropium (Ipratropium-Albuterol 3 Ml Neb) 3 ml INHALATION TID [facility] Last Admin: 06/26/20 14:05 Dose: 3 ml Documented by: Amiodarone HCl (Amiodarone 200 Mg Tablet) 400 mg PO BID [facility] Last Admin: 06/26/20 09:17 Dose: 400 mg Documented by: Apixaban (Apixaban 5 Mg Tablet) 5 mg PO BID [facility] Last Admin: 06/26/20 09:18 Dose: 5 mg Documented by: Atorvastatin Calcium (Lipitor) 40 mg PO BEDTIME [facility] Last Admin: 06/25/20 20:11 Dose: 40 mg Documented by: Bisacodyl (Bisac-Evac) 10 mg ME DAILY PRN PRN Reason: Constipation Dextrose (D50w) 25 ml IVP ONCE PRN; Protocol PRN Reason: hypoglycemia protocol Last Admin: 06/15/20 23:03 Dose: 25 ml Documented by: Dextrose (D50w) 50 ml IVP PRN PRN; Protocol PRN Reason: hypoglycemia protocol Folic Acid (Folic Acid) 1 mg PO DAILY [facility] Last Admin: 06/26/20 09:16 Dose: 1 mg Documented by: Furosemide (Furosemide 10 Mg/Ml Sdv 4ml) 40 mg IVP Q24H [facility] Last Admin: 06/26/20 09:15 Dose: 40 mg Documented by: Glucagon (Glucagen) 1 mg IM ONCE PRN; Protocol PRN Reason: Adult Acute Hypoglycemia Prot. Dextrose (D5w) 500 mls @ 100 mls/hr IV ONCE PRN; Protocol PRN Reason: Adult Acute Hypoglycemia Prot Imipenem/Cilastatin Sodium 500 (mg/ Sodium Chloride) 100 mls @ 200 mls/hr IV Q6H [facility] Last Admin: 06/26/20 16:50 Dose: 200 mls/hr Documented by: Dextrose/Sodium Chloride (Dextrose 5%-Sod Chloride 0.45%) 1,000 mls @ 50 mls/hr IV .Q20H [facility] Last Admin: 06/26/20 16:49 Dose: 50 mls/hr Documented by: Levothyroxine Sodium (Synthroid) 225 mcg PO DAILY [facility] Last Admin: 06/26/20 09:15 Dose: 225 mcg Documented by: Magnesium Oxide (Magnesium Oxide 400 Mg Tablet) 400 mg PO BID [facility] Last Admin: 06/26/20 09:16 Dose: 400 mg Documented by: Metoprolol Tartrate (Metoprolol Tartrate 25 Mg Tablet) 25 mg PO BID [facility] Last Admin: 06/26/20 09:17 Dose: 25 mg Documented by: Morphine Sulfate (Morphine 4 Mg/Ml Sdv 1 Ml) 2 mg IVP Q4H PRN PRN Reason: SEVERE PAIN Last Admin: 06/24/20 04:08 Dose: 2 mg Documented by: Nystatin (Nystatin Powder 15 Gm Btl) 1 applic TOPICAL BID PRN PRN Reason: under folds Last Admin: 06/25/20 23:51 Dose: 1 applic Documented by: Ondansetron HCl (Zofran) 4 mg IVP Q6H PRN PRN Reason: NAUSEA AND VOMITING Pantoprazole Sodium (Pantoprazole Dr 40 Mg Tablet) 40 mg PO BID [facility] Last Admin: 06/26/20 09:19 Dose: 40 mg Documented by: Prednisone (Prednisone 20 Mg Tablet) 20 mg PO DAILY [facility] Last Admin: 06/26/20 09:18 Dose: 20 mg Documented by: Vitals/I&O/Wt Last Vital Signs Temp 97.6 F 06/30/20 11:35 Pulse 81 06/30/20 11:35 Resp 18 06/30/20 11:35 BP 117/64 06/30/20 11:35 Pulse Ox 95 06/30/20 11:35 06/29/20 06/30/2006/30/20 22:59 06:59 14:59 Intake Total 240 / 891.667 200 / 200 Output Total 500 / 1200 150 / 1350 Balance -260 / -308.333 -150 / -458.333 200 / 200 Weight last 48 hrs Weight 122.969 kg Weight 125.827 kg Physical Exam Narrative: EXAM NARRATIVE: General: Chronically ill appearing HEENT : Grossly unremakable CHEST : Decrease Breath sound, crackles CVS : Tachycardic ABD; Non-tender Ext ; Bilateral LE edema Urinary Catheter Management^: Boswell: Cath Placed During This Visit: yes Reason for Continuing Indwelling Catheter: Accurate Measurement of Urinary Outpu t in Critically Ill Patients Urinary Catheter Date of Insertion: 06/15/20 Urinary Catheter Time of Insertion: 19:50 Data : 06/30/20 03:59 06/30/20 03:59 A&P Assessment and plan (1) Acute exacerbation of CHF (congestive heart failure): -Ac on Chronic HFpEF; exacerbation given -Elevated BNP elevation (8909), B/L LE edema with chronic changes -repeat Echo: EF=55%, G2DD, small to moderate pericardial effusion but no tamponade physiology. -Replace K as needed -Monitor daily weight -Lasix dose was increased to 40 mg IV BID Status: Acute Qualifiers: Heart failure type: diastolic Qualified Code(s): I50.33 - Acute on chronic diastolic (congestive) heart failure (2) Respiratory failure with hypoxia: Ac hypoxic R/F Multifactorial ( PNA , Cradiogenic shock) : Post discharge from hospital after the managment of COVID PNA she was consitenetly requiring 3 l oxygen at [facility]. During this hospital stay she required HHFNC as well as BIPAP. At one point in time she was low threshold for intubation. Currently with the improvement in PNA, sepsis with multiorgan failure ,cardiogenic shock, afib with RVR,her --supplemental oxygen requirement is also going down. She is requiring 2-3 L oxygen -influenza, bacterial antigens, Legionella, MRSA negative. -rapid COVID-19 test negative. Recently treated for COVID-19 pneumonia requiring hospitalization. Imaging Studies: Most Recent C.T chest without Contrast done on 06/23: has shown : compressive atelectasis of both lower lobes and some portions of the posterior aspect of the left upper lobe. Pleural space: There are moderate bilateral pleural effusions. Pleural effusions are slightly larger than on the the previous examination. Heart: The heart is moderately enlarged. There is a large pericardial fluid collection present. Pericardial effusion measures up to 2 cm in thickness. Aorta: - Continue Bipap for now - wean as tolerated - repeat chest x-ray now - Imipenam has been discontinued on 06/27/2020 - Pulmonary medicine (Dr. Benton ) was consulted. - Likely due to fluid overload, cautiously diuresis. Status: Acute Qualifiers: Chronicity: acute on chronic Qualified Code(s): J96.21 - Acute and chronic respiratory failure with hypoxia (3) Gout attack: Possible gout flare on lt wrist,though not typical site.R.F includes ( Obesity, CHF ) Ac Onset of redness and swellinG and joint pain developed overnight Will avoid colchicine ( Diarrhea ) and NSAIDS (CHF ) . On Prednisone 20 mg oral daily, has lead to significant improvement. Currenlty off prednisone Status: Acute (4) Septic shock: -Shock with multiorgan involvement likely mix of sepsis 2/2 PNA as well as cardiogenic due to pericardial effusion without tamponade physiology. Resolved as evidenced by Resolved leukocytosis, off pressor support, no lactic acidosis -Was on Primax (06/18-06-26 ) , Vancomycin , levofloxacin and aztreona m.Currently all ABxs have been discontinued. -CT A/P has not shown any source of intrabdominal infection -blood cx , urine , sputum and catheter tip culture have shown no growth so far. -UA was indicative of infection; urine cx negative. - low suspecion of infectious process. Status: Acute (5) Pericardial effusion: Without Tamponade physiology.Has been monitored with serial echo. Last Serial echo done on : 06/22: Normal left ventricular size and systolic function with no diagnostic regional wall motion abnormalities. Left ventricular ejection fraction is estimated at 60 %. Moderate circumferential p ericardial effusion. No evidence of tamponade physiology. Intervention cardiology has been consulted for the same and he is of the opinion to monitor it for now. Status: Acute (6) Atrial fibrillation with RVR: -Currently on Metoprolol T 25MG Q12 H Daily -As well as amiodarone 400 mg Q12H Daily -Per Cardiology Recommendations ( 200 mg BID [id number] x 1 week and then 200 mg daily. -Amiodarone was decreased to 200 mg po BID today -continue metoprolol tartrate 25 mg PO BID ) -HR is well controlled. -Eliquis was restarted on ( 06/23 ) -Monitor for hematuria -Will Monitor CBC and plan to restart. Status: Acute (7) Shock liver: -Resolved -Earlier significant increase in LFTs indicating acute liver failure -likely related to shock as noted above -has known large left hepatic lobe lesion; stable per repeat imaging -continue to trend LFTs Status: Acute (8) Acute kidney injury: -Resolved -baseline Cr appears to be around 1.2-1.6 -off IV fluid hydration -Continue to monitor renal function, renally dose meds, avoid nephrotoxins -CPK wnl -nephrology consult appreciated -good urine output overnight; has Boswell catheter in place -UA with some proteinuria, blood Status: Acute (9) Sepsis: -as noted above Status: Acute Qualifiers: Acute respiratory failure type: with hypoxia Sepsis acute organ dysfunction status: with acute organ dysfunction Sepsis type: sepsis due to unspecified organism Severe sepsis acute organ dysfunction type: acute respiratory failure Severe sepsis shock status: with septic shock Qualified Code(s): A41.9 - Sepsis, unspecified organism; R65.21 - Severe sepsis with septic shock; J96.01 - Acute respiratory failure with hypoxia (10) Hematuria: No ongoing hematuria H/H is holding. Eliquis resumed at lower dose of 2.5 mg q12 h daily Status: Acute (11) Elevated troponin: -noted elevated troponins with no significant delta x 2 hrs -this is likely type II due to demand ischemia secondary to severe sepsis -Echo (09/2019): EF=55%, no RWMA, biatrial enlargement, mild-moderate , mild TR. Repeat Echo noted above Status: Acute (12) Anemia: -baseline Hg is around 9. -continue to trend H/H; Status: Chronic Qualifiers: Anemia type: unspecified type Qualified Code(s): D64.9 - Anemia, unspecified (13) Aortic stenosis: -noted mild to moderate per last Echo (09/2019) Status: Chronic Qualifiers: Cardiac valve disease etiology: etiology unspecified Qualified Code(s): I35.0 - Nonrheumatic aortic (valve) stenosis (14) Hyperlipidemia: -on statin Status: Chronic Qualifiers: Hyperlipidemia type: unspecified Qualified Code(s): E78.5 - Hyperlipidemia, unspecified (15) Hypertension: Metoprolol.T 25 MG Q12 H Daily Status: Chronic Qualifiers: Hypertension type: essential hypertension Qualified Code(s): I10 - Essential (primary) hypertension (16) Pulmonary embolism: -Prior hx of PE -On Eliquis Status: Chronic Qualifiers: Acute cor pulmonale presence: unspecified Chronicity: chronic Pulmonary embolism type: unspecified Qualified Code(s): I27.82 - Chronic pulmonary embolism (17) Elevated INR: -Coagulopathy likely related to liver failure and shock -Venous duplex negative for DVT -CTA was not done initially due to renal impairment. -Now resolved. -Ac has been resumed -Monitor for bleeding Status: Acute (18) Physical deconditioning: Patient has severe physical deconditioning. PT is on board Status: Acute Additional A&P Information -Morbid obesity: BMI-44 kg/m2 -hx of hypothyroidism; on levothyroxine -LE edema and ulcers; wound care as needed -Thrombocytopenia; Stable. Monitor P.C -hypoalbuminemia; Have received albumin once. will promote good diet with Boost. 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 Diagnoses Acute exacerbation of CHF (congestive heart failure) I50.33 Heart failure type: diastolic Respiratory failure with hypoxia J96.21 Chronicity: acute on chronic Gout attack M10.9 Septic shock A41.9; R65.21 Pericardial effusion I31.3 Atrial fibrillation with RVR I48.91 Shock liver K72.00 Acute kidney injury N17.9 Sepsis A41.9; R65.21; J96.01 Acute respiratory failure type: with hypoxia Sepsis acute organ dysfunction status: with acute organ dysfunction Sepsis type: sepsis due to unspecified organism Severe sepsis acute organ dysfunction type: acute respiratory failure Severe sepsis shock status: with septic shock Hematuria R31.9 Elevated troponin R79.89 Anemia D64.9 Anemia type: unspecified type Aortic stenosis I35.0 Cardiac valve disease etiology: etiology unspecified Hyperlipidemia E78.5 Hyperlipidemia type: unspecified Hypertension I10 Hypertension type: essential hypertension Pulmonary embolism I27.82 Acute cor pulmonale presence: unspecified Chronicity: chronic Pulmonary embolism type: unspecified Elevated INR R79.1 Physical deconditioning R53.81
[2020-06-30] MEDS: potassium chloride oral liq 20 mEq/15 mL UDC 40 MEQ PO (12:04)
--- NOTE | 2020-06-30 13:54 | XR_ITS ---
WS: [id number] Exam: XR chest 1V portable [id number] Date/Time of Exam: 06/30/2020 1:54 PM Reason For Exam: dyspnea Comparison 06/23/2020. Marked cardiac enlargement. Bilateral pleural effusions. Pleural effusion on the left show significan t increase since previous study. No pneumothorax. There is probably compressive atelectasis of both l ower lobes. Regional bony structures are unremarkable. XR/XR chest 1V portable [id number] IMPRESSION: 1. Marked cardiac enlargement unchanged. Probable chronic CHF. 2. Increasing left-sided pleural effusion since prior study. 3. Compressive atelectasis of both lower lobes.
[2020-06-30 17:26] LABS: Glucose Point of Care 95 mg/dL (70-110)
[2020-06-30] MEDS: amiodarone 200 mg Tablet PO (17:58)
[2020-06-30 20:28] LABS: Glucose Point of Care 112 mg/dL (70-110)
[2020-06-30] MEDS: docusate sodium 100 mg Capsule PO (20:46)
[2020-06-30] MEDS: atorvastatin 40 mg Tablet PO (20:46)
[2020-06-30] MEDS: zolpidem 5 mg Tablet PO (20:46)
[2020-07-01] VITALS (11 sets, daily range): BP systolic 106–133; BP diastolic 60–80; PULSE 78–98; RESP 16–37; TEMP 35.9–36.9; O2SAT 78–99
--- NOTE | 2020-07-01 02:27 | PC.NURSE ---
pt coughing up blood tinged sputum. Notified Dr Downing who gave order to put eliquis on hold.
[2020-07-01] MEDS: FUROsemide 10 mg/mL SDV 4mL 40 MG IVP (05:22)
[2020-07-01 06:49] LABS: Glucose Point of Care 104 mg/dL (70-110)
[2020-07-01] MEDS: levothyroxine 150 mcg Tablet 225 MCG PO (09:54)
[2020-07-01] MEDS: magnesium oxide 400 mg tablet PO ×2 (09:54→18:31)
[2020-07-01] MEDS: pantoprazole DR 40 mg Tablet PO ×2 (09:56→18:31)
[2020-07-01] MEDS: folic acid 1 mg Tablet PO (09:59)
[2020-07-01] MEDS: metoprolol tartrate 25 mg Tablet PO ×2 (09:59→18:32)
[2020-07-01] MEDS: amiodarone 200 mg Tablet PO ×2 (09:59→18:37)
[2020-07-01] MEDS: acetylcysteine 200 mg/mL SDV 4 mL 100 MG INHALATION ×3 (10:56→21:30)
[2020-07-01] MEDS: ipratropium-albuterol 3 mL Neb INHALATION ×3 (10:56→21:28)
[2020-07-01 11:29] LABS: Glucose Point of Care 116 mg/dL (70-110)
--- NOTE | 2020-07-01 14:19 | P.PN_ITS ---
Subjective Subjective: Interval history: 74-year-old female with a past medical history significant for hypertension, dyslipidemia, hypothyroidism, paroxysmal atrial fibrillation /flutter on anticoagulation, gastroesophageal reflux disease, pulmonary embolism, recent diagnosis of COVID-19 pneumonia with subsequent chronic hypoxemic respiratory failure requring 3L of o2 via NC who presented to the hospital with shortness of breath. She was noted to be hypoxc with oxygen saturation in mid-high 80s. Laboratory workup on arrival showed a WBC of 17.6, hemoglobin of 8.5, hematocrit 30.8 and a platelet count of 167. sodium 136, potassium 5.3, chloride 101, bicarb 20, BUN 56 and creatinine of 3.4. Lactic acid elevated at 2.7. AST of 4722, ALT of 2328 and alkaline phosphatase of 211. total bilirubin of 1.4. Creatinine kinase of 189. She was noted to have marked hypotension with SBP < 90 on admission. Patient was started on IV Levophed. Addition to required vasopressin. This was weaned off. Patient was suspected to have septic shock vs cardiogenic shock. CT abdomen pelvis without contrast was performed which showed a partially visualized small moderate pericardial effusion, pleural effusion compressive atelectasis of left lower lobe, small right pleural effusion This was complicated with atrial fibrillation with rapid ventricular response. Cardiology was consulted and patietn was started on amiodarone. In addition was also started on metoprolol 25 mg PO BID and eliquis for cva prevention. Pericardial effusion was assessed with echocardiogram which showed pEF at 55% with grade 2 diastolic dysfunction. Small to moderate pericardial effusion loculated more along the left ventricular free wass was noted with out any evidence of tamponade physiology. Due to lack of tamponade physiology no tap was performed. During hospitalization patient continued to require intermittent use of BIPAP and supplemental oxygen. Further a CT chest was performed which showed compressive atelectasis of both lower lobes in some portions of the posterior aspect of the left upper lobe. Mo derate bilateral pleural effusions which has slightly increased from prior were noted. Again notation of large pericardial fluid was seen. Patient continued to require dieresis with Lasix 40 mg IV daily. PRN additional doses were given. Unclear if accurate recordings however wt increased to 131kg then decreased to 122K on 06/30. Additionally noted to have a large left hepatic lobe cystic lesion measuring 13.4 x 13.8 x 14.1 which was unchanged from prior. Chest x-ray on admission showed marked cardiomegaly with significant improvement of right pleural effusion. Left chest Continue show opacification primarily in lower lobe. Subjective 06/29 Patient was noted to be respiratory distress. require placement of bipap 06/30 Continue to require supplemental oxygen with use of BIPAP 07/01 Noted improvement in respiratory status overnight. Did require Bipap however was weaned to 2L of o2 via NC at the time of my eval. No fever, chills nausea or vomiting. Denied chest pain or cough. Medications: Reviewed: Yes Medication Review Details: Current Medications Acetaminophen (Acetaminophen 325 Mg Tablet) 650 mg PO Q6H PRN PRN Reason: MILD PAIN Last Admin: 06/22/20 19:35 Dose: 650 mg Documented by: Acetaminophen (Tylenol) 650 mg DC Q6H PRN PRN Reason: FEVER Acetylcysteine (Acetylcysteine 200 Mg/Ml Sdv 4 Ml) 100 mg INHALATION TID [facility] Last Admin: 06/26/20 14:05 Dose: Not Given Documented by: Albuterol Sulfate (Ventolin) 2 puff INHALATION Q4H.RESPIRATORY PRN PRN Reason: SHORTNESS OF BREATH Albuterol/Ipratropium (Ipratropium-Albuterol 3 Ml Neb) 3 ml INHALATION TID [facility] Last Admin: 06/26/20 14:05 Dose: 3 ml Documented by: Amiodarone HCl (Amiodarone 200 Mg Tablet) 400 mg PO BID [facility] Last Admin: 06/26/20 09:17 Dose: 400 mg Documented by: Apixaban (Apixaban 5 Mg Tablet) 5 mg PO BID [facility] Last Admin: 06/26/20 09:18 Dose: 5 mg Documented by: Atorvastatin Calcium (Lipitor) 40 mg PO BEDTIME [facility] Last Admin: 06/25/20 20:11 Dose: 40 mg Documented by: Bisacodyl (Bisac-Evac) 10 mg DC DAILY PRN PRN Reason: Constipation Dextrose (D50w) 25 ml IVP ONCE PRN; Protocol PRN Reason: hypoglycemia protocol Last Admin: 06/15/20 23:03 Dose: 25 ml Documented by: Dextrose (D50w) 50 ml IVP PRN PRN; Protocol PRN Reason: hypoglycemia protocol Folic Acid (Folic Acid) 1 mg PO DAILY [facility] Last Admin: 06/26/20 09:16 Dose: 1 mg Documented by: Furosemide (Furosemide 10 Mg/Ml Sdv 4ml) 40 mg IVP Q24H [facility] Last Admin: 06/26/20 09:15 Dose: 40 mg Documented by: Glucagon (Glucagen) 1 mg IM ONCE PRN; Protocol PRN Reason: Adult Acute Hypoglycemia Prot. Dextrose (D5w) 500 mls @ 100 mls/hr IV ONCE PRN; Protocol PRN Reason: Adult Acute Hypoglycemia Prot Imipenem/Cilastatin Sodium 500 (mg/ Sodium Chloride) 100 mls @ 200 mls/hr IV Q6H [facility] Last Admin: 06/26/20 16:50 Dose: 200 mls/hr Documented by: Dextrose/Sodium Chloride (Dextrose 5%-Sod Chloride 0.45%) 1,000 mls @ 50 mls/hr IV .Q20H [facility] Last Admin: 06/26/20 16:49 Dose: 50 mls/hr Documented by: Levothyroxine Sodium (Synthroid) 225 mcg PO DAILY [facility] Last Admin: 06/26/20 09:15 Dose: 225 mcg Documented by: Magnesium Oxide (Magnesium Oxide 400 Mg Tablet) 400 mg PO BID [facility] Last Admin: 06/26/20 09:16 Dose: 400 mg Documented by: Metoprolol Tartrate (Metoprolol Tartrate 25 Mg Tablet) 25 mg PO BID [facility] Last Admin: 06/26/20 09:17 Dose: 25 mg Documented by: Morphine Sulfate (Morphine 4 Mg/Ml Sdv 1 Ml) 2 mg IVP Q4H PRN PRN Reason: SEVERE PAIN Last Admin: 06/24/20 04:08 Dose: 2 mg Documented by: Nystatin (Nystatin Powder 15 Gm Btl) 1 applic TOPICAL BID PRN PRN Reason: under folds Last Admin: 06/25/20 23:51 Dose: 1 applic Documented by: Ondansetron HCl (Zofran) 4 mg IVP Q6H PRN PRN Reason: NAUSEA AND VOMITING Pantoprazole Sodium (Pantoprazole Dr 40 Mg Tablet) 40 mg PO BID [facility] Last Admin: 06/26/20 09:19 Dose: 40 mg Documented by: Prednisone (Prednisone 20 Mg Tablet) 20 mg PO DAILY [facility] Last Admin: 06/26/20 09:18 Dose: 20 mg Documented by: Vitals/I&O/Wt Last Vital Signs Temp 97.0 F L 07/01/20 11:12 Pulse 80 07/01/20 11:21 Resp 16 07/01/20 11:21 BP 125/80 07/01/20 11:12 Pulse Ox 98 07/01/20 11:21 06/30/20 07/01/20 07/01/20 22:59 06:59 14:59 Intake Total 240 / 680 600 / 600 Output Total 2100 / 2100 550 / 2650 1999 Balance -1860 / -1420 -550 / -1970 -1400 / -1400 Weight last 48 hrs Weight 124.919 kg Weight 122.969 kg Physical Exam Narrative: EXAM NARRATIVE: General: Chronically ill appearing HEENT : Grossly unremakable CHEST : Decrease Breath sound, crackles CVS : Tachycardic ABD; Non-tender Ext ; Bilateral LE edema Urinary Catheter Management^: Boswell: Cath Placed During This Visit: yes Reason for Continuing Indwelling Catheter: Accurate Measurement of Urinary Output in Critically Ill Patients Urinary Catheter Date of Insertion: 06/15/20 Urinary Catheter Time of Insertion: 19:50 Data : 06/30/20 03:59 06/30/20 03:59 A&P Assessment and plan (1) Acute exacerbation of CHF (congestive heart failure): -Ac on Chronic HFpEF; exacerbation given -Elevated BNP elevation (8909), B/L LE edema with chronic changes -repeat Echo: EF=55%, G2DD, small to moderate pericardial effusion but no tamponade physiology. -Replace K as needed -Monitor daily weight -Lasix dose was increased to 40 mg IV BID -Monitor I&O -Repeat BMP Now -Will need close follow up with cardiology after discharge Status: Acute Qualifiers: Heart failure type: diastolic Qualified Code(s): I50.33 - Acute on chronic diastolic (congestive) heart failure (2) Respiratory failure with hypoxia: Ac hypoxic R/F Multifactorial ( PNA , Cradiogenic shock) : Post discharge from hospital after the managment of COVID PNA she was consitenetly requiring 3 l oxygen at [facility]. During this hospital stay she required HHFNC as well as BIPAP. At one point in time she was low threshold for intubation. Currently with the improvement in PNA, sepsis with multiorgan failure ,cardiogenic shock, afib with RVR,her --supplemental oxygen requirement is also going down. She is requiring 2-3 L oxygen -influenza, bacterial antigens, Legionella, MRSA negative. -rapid COVID-19 test negative. Recently treated for COVID-19 pneumonia requiring hospitalization. Imaging Studies: 06/23 - C.T chest without Contrast has shown : compressive atelectasis of both lower lobes and some portions of the posterior aspect of the left upper lobe. Pleural space: There are moderate bilateral pleural effusions. Pleural effusions are slightly larger than on the the previous examination. Heart: The heart is moderately enlarged. There is a large pericardial fluid collection present. Pericardial effusion measures up to 2 cm in thickness. 06/30 - Chest x-ray 1. Marked cardiac enlargement unchanged. Probable chronic CHF. 2. Increasing left-sided pleural effusion since prior study. 3. Compressive atelectasis of both lower lobes. - Continue Bipap PRN - Imipenam has been discontinued on 06/27/2020 - Pulmonary medicine (Dr. Benton ) was consulted. - Likely due to fluid overload, cautiously diuresis. - If worsening may consider getting left sided thoracentesis on Friday Status: Acute Qualifiers: Chronicity: acute on chronic Qualified Code(s): J96.21 - Acute and chronic respiratory failure with hypoxia (3) Gout attack: Possible gout flare on lt wrist,though not typical site.R.F includes ( Obesity, CHF ) Ac Onset of redness and swellinG and joint pain developed overnight Will avoid colchicine ( Diarrhea ) and NSAIDS (CHF ) . On Prednisone 20 mg oral daily, has lead to significant improvement. Currenlty off prednisone Status: Acute (4) Septic shock: -Shock with multiorgan involvement likely mix of sepsis 2/2 PNA as well as cardiogenic due to pericardial effusion without tamponade physiology. Resolved as evidenced by Resolved leukocytosis, off pressor support, no lactic acidosis -Was on Primax (06/18-06-26 ) , Vancomycin , levofloxacin and aztreonam.Curre ntly all ABxs have been discontinued. -CT A/P has not shown any source of intrabdominal infection -blood cx , urine , sputum and catheter tip culture have shown no growth so far. -UA was indicative of infection; urine cx negative. -Low suspecion of infectious process. Status: Acute (5) Pericardial effusion: Without Tamponade physiology.Has been monitored with serial echo. Last Serial echo done on : 06/22: Normal left ventricular size and systolic function with no diagnostic regional wall motion abnormalities. Left ventricular ejection fraction is estimated at 60 %. Moderate circumferential pericardial effusion. No evidence of tamponade physiology. Intervention cardiology has been consulted for the same and he is of the opinion to monitor it for now. Status: Acute (6) Atrial fibrillation with RVR: -Currently on Metoprolol T 25MG Q12 H Daily -As well as amiodarone 400 mg Q12H Daily -Per Cardiology Recommendations ( 200 mg BID [id number] x 1 week and then 200 mg daily. -Amiodarone was decreased to 200 mg po BID today -continue metoprolol tartrate 25 mg PO BID ) -HR is well controlled. -Eliquis was restarted on ( 06/23 ) -Monitor for hematuria -Will Monitor CBC and plan to restart. Status: Acute (7) Shock liver: -Resolved -Earlier significant increase in LFTs indicating acute liver failure -likely related to shock as noted above -has known large left hepatic lobe lesion; stable per repeat imaging -continue to trend LFTs Status: Acute (8) Acute kidney injury: -Resolved -baseline Cr appears to be around 1.2-1.6 -off IV fluid hydration -Continue to monitor renal function, renally dose meds, avoid nephrotoxins -CPK wnl -nephrology consult appreciated -good urine output overnight; has Boswell catheter in place -UA with some proteinuria, blood Status: Acute (9) Sepsis: -as noted above Status: Acute Qualifiers: Sepsis type: sepsis due to unspecified organism Sepsis acute organ dysfunction status: with acute organ dysfunction Severe sepsis acute organ dysfunction type: acute respiratory failure Acute respiratory failure type: with hypoxia Severe sepsis shock status: with septic shock Qualified Code(s): A41.9 - Sepsis, unspecified organism; R65.21 - Severe sepsis with septic shock; J96.01 - Acute respiratory failure with hypoxia (10) Hematuria: No ongoing hematuria H/H is holding. Eliquis resumed at lower dose of 2.5 mg q12 h daily Status: Acute (11) Elevated troponin: -noted elevated troponins with no significant delta x 2 hrs -this is likely type II due to demand ischemia secondary to severe sepsis -Echo (09/2019): EF=55%, no RWMA, biatrial enlargement, mild-moderate , mild TR. Repeat Echo noted above Status: Acute (12) Anemia: -baseline Hg is around 9. -continue to trend H/H; Status: Chronic Qualifiers: Anemia type: unspecified type Qualified Code(s): D64.9 - Anemia, unspecified (13) Aortic stenosis: -noted mild to moderate per last Echo (09/2019) Status: Chronic Qualifiers: Cardiac valve disease etiology: etiology unspecified Qualified Code(s): I35.0 - Nonrheumatic aortic (valve) stenosis (14) Hyperlipidemia: -on statin Status: Chronic Qualifiers: Hyperlipidemia type: unspecified Qualified Code(s): E78.5 - Hyperlipidemia, unspecified (15) Hypertension: Metoprolol.T 25 MG Q12 H Daily Status: Chronic Qualifiers: Hypertension type: essential hypertension Qualified Code(s): I10 - Essential (primary) hypertension (16) Pulmonary embolism: -Prior hx of PE -On Eliquis Status: Chronic Qualifiers: Pulmonary embolism type: unspecified Chronicity: chronic Acute cor pulmonale presence: unspecified Qualified Code(s): I27.82 - Chronic pulmonary embolism (17) Elevated INR: -Coagulopathy likely related to liver failure and shock -Venous duplex negative for DVT -CTA was not done initially due to renal impairment. -Now resolved. -Ac has been resumed -Monitor for bleeding Status: Acute (18) Physical deconditioning: Patient has severe physical deconditioning. PT is on board Status: Acute Additional A&P Information -Morbid obesity: BMI-44 kg/m2 -hx of hypothyroidism; on levothyroxine -LE edema and ulcers; wound care as needed -Thrombocytopenia; Stable. Monitor P.C -hypoalbuminemia; Have received albumin once. will promote good diet with Boost. -GI ppx with PPI -DVT ppx -Dispo: return to [facility] [place] -Code status: FULL code; -prognosis:Fair given resolution of multiorgan failure Attestations Medical Necessity Statement*: Will require further hospitalization for continued IV diuretics and bipap. Time Spent in Patient Care: Greater than 35 minutes Coding Level of Care Code Acute Manager [employer] for Chg Fwd Diagnoses Acute exacerbation of CHF (congestive heart failure) I50.33 Heart failure type: diastolic Respiratory failure with hypoxia J96.21 Chronicity: acute on chronic Gout attack M10.9 Septic shock A41.9; R65.21 Pericardial effusion I31.3 Atrial fibrillation with RVR I48.91 Shock liver K72.00 Acute kidney injury N17.9 Sepsis A41.9; R65.21; J96.01 Sepsis type: sepsis due to unspecified organism Sepsis acute organ dysfunction status: with acute organ dysfunction Severe sepsis acute organ dysfunction type: acute respiratory failure Acute respiratory failure type: with hypoxia Severe sepsis shock status: with septic shock Hematuria R31.9 Elevated troponin R79.89 Anemia D64.9 Anemia type: unspecified type Aortic stenosis I35.0 Cardiac valve disease etiology: etiology unspecified Hyperlipidemia E78.5 Hyperlipidemia type: unspecified Hypertension I10 Hypertension type: essential hypertension Pulmonary embolism I27.82 Pulmonary embolism type: unspecified Chronicity: chronic Acute cor pulmonale presence: unspecified Elevated INR R79.1 Physical deconditioning R53.81
[2020-07-01 16:07] LABS: Glucose Point of Care 110 mg/dL (70-110)
[2020-07-01 16:18] LABS: Blood Urea Nitrogen 23 mg/dL (8-23); Carbon Dioxide 38 mmol/L (22-29); Glucose 108 mg/dL (65-115)
[2020-07-01 16:38] LABS: Anion Gap 5.9 (5-19); Chloride 102 mmol/L (98-107); Osmolality Calculated 300 mOsm/kg (285-295); Sodium 143 mmol/L (136-145)
[2020-07-01 16:46] LABS: Potassium 2.9 mmol/L (3.5-5.1)
[2020-07-01] MEDS: lidocaine 1% 5 ML in potassium chloride premix 100 ML 25 ML IV (18:37)
--- NOTE | 2020-07-01 18:54 | PC.NURSE ---
Received critical lab of potassium: 2.9. Alerted Dr melgar.
[2020-07-01 20:28] LABS: Glucose Point of Care 119 mg/dL (70-110)
[2020-07-01] MEDS: zolpidem 5 mg Tablet PO (20:55)
[2020-07-01] MEDS: atorvastatin 40 mg Tablet PO (20:55)
[2020-07-01] MEDS: docusate sodium 100 mg Capsule PO (20:55)
[2020-07-02] VITALS (8 sets, daily range): BP systolic 102–153; BP diastolic 65–91; PULSE 80–107; RESP 16–43; TEMP 36.6–37.1; O2SAT 94–98
[2020-07-02 06:44] LABS: Glucose Point of Care 101 mg/dL (70-110)
[2020-07-02 07:09] LABS: Basophils % 0.8 %; Eosinophils # 0.1 10^3/uL (0.0-0.8); Lymphocytes # 0.7 10^3/uL (0.8-4.8); Lymphocytes % 18.8 %; Mean Corpuscular HGB Conc 27.6 g/dL (30.0-36.0); Mean Corpuscular Hemoglobin 26.5 pg (28.0-34.0); Mean Platelet Volume 11.8 fL (7.4-10.4); Monocytes # 0.5 10^3/uL (0.2-0.9); Monocytes % 12.4 %; Neutrophils # 2.58 10^3/uL (1.8-7.7); Neutrophils % 65.5 %; Nucleated Red Blood Cells % 0 %; Platelet Count 125 10^3/cmm (130-400); Red Blood Count 3.02 10^6/uL (4.1-5.3); Red Cell Distribution Width 22.3 % (12.1-15.1); White Blood Count 3.9 10^3/uL (4.0-10.0)
[2020-07-02 07:44] LABS: Alanine Aminotransferase 13 U/L (0-33); Albumin Level 2.9 g/dL (3.5-5.2); Alkaline Phosphatase 108 IU/L (35-105); Anion Gap 7.9 (5-19); Aspartate Amino Transferase 12 U/L (0-32); Blood Urea Nitrogen 20 mg/dL (8-23); Calcium 8.1 mg/dL (8.5-10.5); Carbon Dioxide 36 mmol/L (22-29); Chloride 102 mmol/L (98-107); Creatinine Clr Calc Pharmacy 60.6416; Globulin 2.9 g/dL (1.3-4.6); Glucose 93 mg/dL (65-115); Osmolality Calculated 296 mOsm/kg (285-295); Potassium 3.9 mmol/L (3.5-5.1); Sodium 142 mmol/L (136-145); Total Bilirubin 0.7 mg/dL (0.15-1.2); Total Protein 5.8 g/dL (6.6-8.7)
[2020-07-02] MEDS: amiodarone 200 mg Tablet PO ×2 (08:46→17:52)
[2020-07-02] MEDS: metoprolol tartrate 25 mg Tablet PO ×2 (08:46→17:52)
[2020-07-02] MEDS: FUROsemide 10 mg/mL SDV 4mL 40 MG IVP (08:46)
[2020-07-02] MEDS: levothyroxine 150 mcg Tablet 225 MCG PO (08:46)
[2020-07-02] MEDS: pantoprazole DR 40 mg Tablet PO ×2 (08:46→17:52)
[2020-07-02] MEDS: folic acid 1 mg Tablet PO (08:46)
[2020-07-02] MEDS: magnesium oxide 400 mg tablet PO ×2 (08:46→17:52)
[2020-07-02] MEDS: ipratropium-albuterol 3 mL Neb INHALATION ×3 (08:55→21:30)
--- NOTE | 2020-07-02 10:01 | PC.SOCIAL ---
IMM Update Pg.2 of IMM updated. Patient resting with eyes closed, copy left at bedside.
[2020-07-02 11:55] LABS: Glucose Point of Care 106 mg/dL (70-110)
--- NOTE | 2020-07-02 13:15 | PM.PN ---
Subjective Subjective: Interval history: 74-year-old female with a past medical history significant for hypertension, dyslipidemia, hypothyroidism, paroxysmal atrial fibrillation /flutter on anticoagulation, gastroesophageal reflux disease, pulmonary embolism, recent diagnosis of COVID-19 pneumonia with subsequent chronic hypoxemic respiratory failure requring 3L of o2 via NC who presented to the hospital with shortness of breath. She was noted to be hypoxc with oxygen saturation in mid-high 80s. Laboratory workup on arrival showed a WBC of 17.6, hemoglobin of 8.5, hematocrit 30.8 and a platelet count of 167. sodium 136, potassium 5.3, chloride 101, bicarb 20, BUN 56 and creatinine of 3.4. Lactic acid elevated at 2.7. AST of 4722, ALT of 2328 and alkaline phosphatase of 211. total bilirubin of 1.4. Creatinine kinase of 189. She was noted to have marked hypotension with SBP < 90 on admission. Patient was started on IV Levophed. Addition to required vasopressin. This was weaned off. Patient was suspected to have septic shock vs cardiogenic shock. CT abdomen pelvis without contrast was performed which showed a partially visualized small moderate pericardial effusion, pleural effusion compressive atelectasis of left lower lobe, small right pleural effusion This was complicated with atrial fibrillation with rapid ventricular response. Cardiology was consulted and patietn was started on amiodarone. In addition was also started on metoprolol 25 mg PO BID and eliquis for cva prevention. Pericardial effusion was assessed with echocardiogram which showed pEF at 55% with grade 2 diastolic dysfunction. Small to moderate pericardial effusion loculated more along the left ventricular free wass was noted with out any evidence of tamponade physiology. Due to lack of tamponade physiology no tap was performed. During hospitalization patient continued to require intermittent use of BIPAP and supplemental oxygen. Further a CT chest was performed which showed compressive atelectasis of both lower lobes in some portions of the posterior aspect of the left upper lobe. Moderate bilateral pleural effusions which has slightly increased from prior were noted. Again notation of large pericardial fluid was seen. Patient continued to require dieresis with Lasix 40 mg IV daily. PRN additional doses were given. Unclear if accurate recordings however wt increased to 131kg then decreased to 122K on 06/30. Additionally noted to have a large left hepatic lobe cystic lesion measuring 13.4 x 13.8 x 14.1 which was unchanged from prior. Chest x-ray on admission showed marked cardiomegaly with significant improvement of right pleural effusion. Left chest Continue show opacification primarily in lower lobe. Subjective 06/29 Patient was noted to be respiratory distress. require placement of bipap 06/30 Continue to require supplemental oxygen with use of BIPAP 07/01 Noted improvement in respiratory status overnight. Did require Bipap however was weaned to 2L of o2 via NC at the time of my eval. No fever, chills nausea or vomiting. Denied chest pain or cough. 07/02 Patient was improving, on 2L via nc. No new complaints. Medications: Reviewed: Yes Medication Review Details: Current Medications Acetaminophen (Acetaminophen 325 Mg Tablet) 650 mg PO Q6H PRN PRN Reason: MILD PAIN Last Admin: 06/22/20 19:35 Dose: 650 mg Documented by: Acetaminophen (Tylenol) 650 mg KS Q6H PRN PRN Reason: FEVER Acetylcysteine (Acetylcysteine 200 Mg/Ml Sdv 4 Ml) 100 mg INHALATION TID [facility] Last Admin: 06/26/20 14:05 Dose: Not Given Documented by: Albuterol Sulfate (Ventolin) 2 puff INHALATION Q4H.RESPIRATORY PRN PRN Reason: SHORTNESS OF BREATH Albuterol/Ipratropium (Ipratropium-Albuterol 3 Ml Neb) 3 ml INHALATION TID [facility] Last Admin: 06/26/20 14:05 Dose: 3 ml Documented by: Amiodarone HCl (Amiodarone 200 Mg Tablet) 400 mg PO BID [facility] Last Admin: 06/26/20 09:17 Dose: 400 mg Documented by: Apixaban (Apixaban 5 Mg Tablet) 5 mg PO BID [facility] Last Admin: 06/26/20 09:18 Dose: 5 mg Documented by: Atorvastatin Calcium (Lipitor) 40 mg PO BEDTIME [facility] Last Admin: 06/25/20 20:11 Dose: 40 mg Documented by: Bisacodyl (Bisac-Evac) 10 mg KS DAILY PRN PRN Reason: Constipation Dextrose (D50w) 25 ml IVP ONCE PRN; Protocol PRN Reason: hypoglycemia protocol Last Admin: 06/15/20 23:03 Dose: 25 ml Documented by: Dextrose (D50w) 50 ml IVP PRN PRN; Protocol PRN Reason: hypoglycemia protocol Folic Acid (Folic Acid) 1 mg PO DAILY [facility] Last Admin: 06/26/20 09:16 Dose: 1 mg Documented by: Furosemide (Furosemide 10 Mg/Ml Sdv 4ml) 40 mg IVP Q24H [facility] Last Admin: 06/26/20 09:15 Dose: 40 mg Documented by: Glucagon (Glucagen) 1 mg IM ONCE PRN; Protocol PRN Reason: Adult Acute Hypoglycemia Prot. Dextrose (D5w) 500 mls @ 100 mls/hr IV ONCE PRN; Protocol PRN Reason: Adult Acute Hypoglycemia Prot Imipenem/Cilastatin Sodium 500 (mg/ Sodium Chloride) 100 mls @ 200 mls/hr IV Q6H [facility] Last Admin: 06/26/20 16:50 Dose: 200 mls/hr Documented by: Dextrose/Sodium Chloride (Dextrose 5%-Sod Chloride 0.45%) 1,000 mls @ 50 mls/hr IV .Q20H [facility] Last Admin: 06/26/20 16:49 Dose: 50 mls/hr Documented by: Levothyroxine Sodium (Synthroid) 225 mcg PO DAILY [facility] Last Admin: 06/26/20 09:15 Dose: 225 mcg Documented by: Magnesium Oxide (Magnesium Oxide 400 Mg Tablet) 400 mg PO BID [facility] Last Admin: 06/26/20 09:16 Dose: 400 mg Documented by: Metoprolol Tartrate (Metoprolol Tartrate 25 Mg Tablet) 25 mg PO BID [facility] Last Admin: 06/26/20 09:17 Dose: 25 mg Documented by: Morphine Sulfate (Morphine 4 Mg/Ml Sdv 1 Ml) 2 mg IVP Q4H PRN PRN Reason: SEVERE PAIN Last Admin: 06/24/20 04:08 Dose: 2 mg Documented by: Nystatin (Nystatin Powder 15 Gm Btl) 1 applic TOPICAL BID PRN PRN Reason: under folds Last Admin: 06/25/20 23:51 Dose: 1 applic Documented by: Ondansetron HCl (Zofran) 4 mg IVP Q6H PRN PRN Reason: NAUSEA AND VOMITING Pantoprazole Sodium (Pantoprazole Dr 40 Mg Tablet) 40 mg PO BID [facility] Last Admin: 06/26/20 09:19 Dose: 40 mg Documented by: Prednisone (Prednisone 20 Mg Tablet) 20 mg PO DAILY [facility] Last Admin: 06/26/20 09:18 Dose: 20 mg Documented by: Vitals/I&O/Wt Last Vital Signs Temp 98.4 F 07/02/20 12:00 Pulse 80 07/02/20 12:00 Resp 32 H 07/02/20 12:00 BP 102/65 07/02/20 12:00 Pulse Ox 97 07/02/20 12:00 07/01/20 07/02/20 07/02/20 22:59 06:59 14:59 Intake Total 282 / 882 58 / 940 480 / 480 Output Total 450 / 2450 300 / 2750 1350 / 1350 Balance -168 / -1568 -242 / -1810 -870 / -870 Weight last 48 hrs Weight 121.472 kg Weight 124.919 kg Physical Exam Narrative: EXAM NARRATIVE: General: Chronically ill appearing HEENT : Grossly unremakable CHEST : Decrease Breath sound, crackles CVS : Tachycardic ABD; Non-tender Ext ; Bilateral LE edema Urinary Catheter Management^: Boswell: Cath Placed During This Visit: yes Reason for Continuing Indwelling Catheter: Accurate Measurement of Urinary Output in Critically Ill Patients Urinary Catheter Date of Insertion: 06/15/20 Urinary Catheter Time of Insertion: 19:50 Data : 07/02/20 06:56 07/02/20 06:56 A&P Assessment and plan (1) Acute exacerbation of CHF (congestive heart failure): -Ac on Chronic HFpEF; exacerbation given -Elevated BNP elevation (8909), B/L LE edema with chronic changes -repeat Echo: EF=55%, G2DD, small to moderate pericardial effusion but no tamponade physiology. -Replace K as needed -Monitor daily weight -Lasix dose decreased to 40 mg IV daily due to worsening renal function -Monitor I&O - negative 5.3L balance during hospitalization -Repeat BMP in am -Will need close follow up with cardiology after discharge Status: Acute Qualifiers: Heart failure type: diastolic Qualified Code(s): I50.33 - Acute on chronic diastolic (congestive) heart failure (2) Respiratory failure with hypoxia: Ac hypoxic R/F Multifactorial ( PNA , Cradiogenic shock) : Post discharge from hospital after the managment of COVID PNA she was cons[facility]etly [facility]. During this hospital stay she required HHFNC as well as BIPAP. At one point in time she was low threshold for intubation. Currently with the improvement in PNA, sepsis with multiorgan failure ,cardiogenic shock, afib with RVR,her --supplemental oxygen requirement is also going down. She is requiring 2-3 L oxygen -influenza, bacterial antigens, Legionella, MRSA negative. -rapid COVID-19 test negative. Recently treated for COVID-19 pneumonia requiring hospitalization. Imaging Studies: 06/23 - C.T chest without Contrast has shown : compressive atelectasis of both lower lobes and some portions of the posterior aspect of the left upper lobe. Pleural space: There are moderate bilateral pleural effusions. Pleural effusions are slightly larger than on the the previous examination. Heart: The heart is moderately enlarged. There is a large pericardial fluid collection present. Pericardial effusion measures up to 2 cm in thickness. 06/30 - Chest x-ray 1. Marked cardiac enlargement unchanged. Probable chronic CHF. 2. Increasing left-sided pleural effusion since prior study. 3. Compressive atelectasis of both lower lobes. - Continue Bipap PRN - Imipenam has been discontinued on 06/27/2020 - Pulmonary medicine (Dr. Benton ) was consulted. - Likely due to fluid overload, cautiously diuresis. - If worsening may consider getting left sided thoracentesis on Friday Status: Acute Qualifiers: Chronicity: acute on chronic Qualified Code(s): J96.21 - Acute and chronic respiratory failure with hypoxia (3) Gout attack: Possible gout flare on lt wrist,though not typical site.R.F includes ( Obesity, CHF ) Ac Onset of redness and swellinG and joint pain developed overnight Will avoid colchicine ( Diarrhea ) and NSAIDS (CHF ) . On Prednisone 20 mg oral daily, has lead to significant improvement. Currenlty off prednisone Status: Acute (4) Septic shock: -Shock with multiorgan involvement likely mix of sepsis 2/2 PNA as well as cardiogenic due to pericardial effusion without tamponade physiology. Resolved as evidenced by Resolved leukocytosis, off pressor support, no lactic acidosis -Was on Primax (06/18-06-26 ) , Vancomycin , levofloxacin and aztreonam.Currently all ABxs have been discontinued. -CT A/P has not shown any source of intrabdominal infection -blood cx , urine , sputum and catheter tip culture have shown no growth so far. -UA was indicative of infection; urine cx negative. -Low suspecion of infectious process. Status: Acute (5) Pericardial effusion: Without Tamponade physiology.Has been monitored with serial echo. Last Serial echo done on : 06/22: Normal left ventricular size and systolic function with no diagnostic regional wall motion abnormalities. Left ventricular ejection fraction is estimated at 60 %. Moderate circumferential pericardial effusion. No evidence of tamponade physiology. Intervention cardiology has been consulted for the same and he is of the opinion to monitor it for now. Status: Acute (6) Atrial fibrillation with RVR: -Currently on Metoprolol T 25MG Q12 H Daily -As well as amiodarone 400 mg Q12H Daily -Per Cardiology Recommendations ( 200 mg BID [id number] x 1 week and then 200 mg daily on 07/08 -Amiodarone was decreased to 200 mg po BID today -continue metoprolol tartrate 25 mg PO BID ) -HR is well controlled. -Eliquis 2.5 mg PO BID -Monitor for hematuria - stable so far. -Will Monitor CBC Status: Acute (7) Shock liver: -Resolved -Earlier significant increase in LFTs indicating acute liver failure -likely related to shock as noted above -has known large left hepatic lobe lesion; stable per repeat imaging -continue to trend LFTs Status: Acute (8) Acute kidney injury: -Resolved -baseline Cr appears to be around 1.2-1.6 -off IV fluid hydration -Continue to monitor renal function, renally dose meds, avoid nephrotoxins -CPK wnl -nephrology consult appreciated -good urine output overnight; has Boswell catheter in place -UA with some proteinuria, blood Status: Acute (9) Sepsis: -as noted above Status: Acute Qualifiers: Sepsis type: sepsis due to unspecified organism Sepsis acute organ dysfunction status: with acute organ dysfunction Severe sepsis acute organ dysfunction type: acute respiratory failure Acute respiratory failure type: with hypoxia Severe sepsis shock status: with septic shock Qualified Code(s): A41.9 - Sepsis, unspecified organism; R65.21 - Severe sepsis with septic shock; J96.01 - Acute respiratory failure with hypoxia (10) Hematuria: No ongoing hematuria H/H is holding. Eliquis resumed at lower dose of 2.5 mg q12 h daily Status: Acute (11) Elevated troponin: -noted elevated troponins with no significant delta x 2 hrs -this is likely type II due to demand ischemia secondary to severe sepsis -Echo (09/2019): EF=55%, no RWMA, biatrial enlargement, mild-moderate , mild TR. Repeat Echo noted above Status: Acute (12) Anemia: -baseline Hg is around 9. -continue to trend H/H; Status: Chronic Qualifiers: Anemia type: unspecified type Qualified Code(s): D64.9 - Anemia, unspecified (13) Aortic stenosis: -noted mild to moderate per last Echo (09/2019) Status: Chronic Qualifiers: Cardiac valve disease etiology: etiology unspecified Qualified Code(s): I35.0 - Nonrheumatic aortic (valve) stenosis (14) Hyperlipidemia: -on statin Status: Chronic Qualifiers: Hyperlipidemia type: unspecified Qualified Code(s): E78.5 - Hyperlipidemia, unspecified (15) Hypertension: Metoprolol.T 25 MG Q12 H Daily Status: Chronic Qualifiers: Hypertension type: essential hypertension Qualified Code(s): I10 - Essential (primary) hypertension (16) Pulmonary embolism: -Prior hx of PE -On Eliquis Status: Chronic Qualifiers: Pulmonary embolism type: unspecified Chronicity: chronic Acute cor pulmonale presence: unspecified Qualified Code(s): I27.82 - Chronic pulmonary embolism (17) Elevated INR: -Coagulopathy likely related to liver failure and shock -Venous duplex negative for DVT -CTA was not done initially due to renal impairment. -Now resolved. -Ac has been resumed -Monitor for bleeding Status: Acute (18) Physical deconditioning: Patient has severe physical deconditioning. PT is on board Status: Acute Additional A&P Information -Morbid obesity: BMI-44 kg/m2 -hx of hypothyroidism; on levothyroxine -LE edema and ulcers; wound care as needed -Thrombocytopenia; Stable. Monitor P.C -hypoalbuminemia; Have received albumin once. will promote good diet with Boost. -GI ppx with PPI -DVT ppx -Dispo: return to [facility] -Code status: FULL code; -prognosis:Imroving slowly Attestations Medical Necessity Statement*: Will require further hospitalization for IV lasix, o2, k replacement. Anticipate discharge in 1-2 days Time Spent in Patient Care: Greater than 35 minutes (>than 50% of time spent in counselling and/or direct pt care on unit). Coding Level of Care Code Acute [employer] for [facility] Diagnoses Acute exacerbation of CHF (congestive heart failure) I50.33 Heart failure type: diastolic Respiratory failure with hypoxia J96.21 Chronicity: acute on chronic Gout attack M10.9 Septic shock A41.9; R65.21 Pericardial effusion I31.3 Atrial fibrillation with RVR I48.91 Shock liver K72.00 Acute kidney injury N17.9 Sepsis A41.9; R65.21; J96.01 Sepsis type: sepsis due to unspecified organism Sepsis acute organ dysfunction status: with acute organ dysfunction Severe sepsis acute organ dysfunction type: acute respiratory failure Acute respiratory failure type: with hypoxia Severe sepsis shock status: with septic shock Hematuria R31.9 Elevated troponin R79.89 Anemia D64.9 Anemia type: unspecified type Aortic stenosis I35.0 Cardiac valve disease etiology: etiology unspecified Hyperlipidemia E78.5 Hyperlipidemia type: unspecified Hypertension I10 Hypertension type: essential hypertension Pulmonary embolism I27.82 Pulmonary embolism type: unspecified Chronicity: chronic Acute cor pulmonale presence: unspecified Elevated INR R79.1 Physical deconditioning R53.81
[2020-07-02 17:04] LABS: Glucose Point of Care 121 mg/dL (70-110)
[2020-07-02] MEDS: atorvastatin 40 mg Tablet PO (18:46)
[2020-07-02] MEDS: docusate sodium 100 mg Capsule PO (18:46)
[2020-07-02] MEDS: zolpidem 5 mg Tablet PO (19:03)
--- NOTE | 2020-07-02 19:04 | PC.NURSE ---
Patient had small soft bowel movement in bed. Patient's skin cleansed and absorbent pad replaced. Will monitor.
--- NOTE | 2020-07-02 19:50 | PC.NURSE ---
Patient complains of gas pains in her stomach, stating it feels like she needs to have a bowel movement. Assessment of GI WNL as charted. Patient has been having loose stools, however is asking for a laxative. Will monitor.
[2020-07-02 20:58] LABS: Glucose Point of Care 113 mg/dL (70-110)
[2020-07-02] MEDS: acetylcysteine 200 mg/mL SDV 4 mL 100 MG INHALATION (21:30)
[2020-07-03] VITALS (10 sets, daily range): BP systolic 100–141; BP diastolic 57–87; PULSE 73–99; RESP 16–36; TEMP 36–36.8; O2SAT 92–99
--- NOTE | 2020-07-03 04:40 | PC.NURSE ---
Patient had small soft, loose BM. Patient was cleaned and absorbant pad replaced. Will monitor.
--- NOTE | 2020-07-03 05:52 | PC.NURSE ---
Patient's linen and absorbent pad is currently clean and dry.
[2020-07-03 06:39] LABS: Glucose Point of Care 92 mg/dL (70-110)
[2020-07-03] MEDS: ipratropium-albuterol 3 mL Neb INHALATION ×3 (08:15→20:36)
[2020-07-03] MEDS: magnesium oxide 400 mg tablet PO ×2 (08:44→18:16)
[2020-07-03] MEDS: metoprolol tartrate 25 mg Tablet PO ×2 (08:44→18:16)
[2020-07-03] MEDS: amiodarone 200 mg Tablet PO ×2 (08:44→18:16)
[2020-07-03] MEDS: pantoprazole DR 40 mg Tablet PO ×2 (08:44→18:16)
[2020-07-03] MEDS: folic acid 1 mg Tablet PO (08:44)
[2020-07-03] MEDS: levothyroxine 150 mcg Tablet 225 MCG PO (08:44)
[2020-07-03] MEDS: FUROsemide 10 mg/mL SDV 4mL 40 MG IVP (08:45)
[2020-07-03 11:17] LABS: Glucose Point of Care 101 mg/dL (70-110)
--- NOTE | 2020-07-03 11:30 | P.PN_ITS ---
Subjective Subjective: Interval history: Patient is known to me from earlier during this admission. She has had a protracted hospital course, chart reviewed thoroughly. Appears to be much more stable than when I last encounter. More hemodynamically stable, heart rate controlled, afebrile, currently on 2 L nasal cannula. Had 1000 mL urine output for net negative fluid balance of 5.5 L. Hemoglobin stable at 8.0, renal function stable with creatinine of 1.1. Remains on IV Lasix. Sleeping during my encounter this morning. Medications: Reviewed: Yes Medication Review Details: Active Medications Generic Name Dose Route Start Last Admin Trade Name Freq PRN Reason Stop Dose Admin Acetaminophen 650 mg 06/15/20 20:52 06/22/20 19:35 Acetaminophen 32 5 Mg Tablet PO 650 mg Q6H PRN Administration MILD PAIN Acetaminophen 650 mg 06/15/20 20:52 Tylenol MD Q6H PRN FEVER Acetylcysteine 100 mg 06/20/20 09:00 07/03/20 08:15 Acetylcysteine 2 00 Mg/Ml Sdv 4 Ml INHALATION Not Given TID KAROLINA Albuterol Sulfate 2 puff 06/15/20 21:50 Ventolin INHALATION Q4H.RESPIRATORY P RN SHORTNESS OF SHERLEY TH Albuterol/Ipratrop ium 3 ml 06/20/20 09:00 07/03/20 08:15 Ipratropium-Albu terol 3 Ml Neb INHALATION 3 ml TID KAROLINA Administration Amiodarone HCl 200 mg 06/30/20 18:00 07/03/20 08:44 Amiodarone 200 M g Tablet PO 200 mg BID KAROLINA Administration Apixaban 2.5 mg 06/28/20 09:27 06/30/20 17:58 Apixaban 5 Mg Ta blet PO 2.5 mg BID KAROLINA Administration Atorvastatin Calci um 40 mg 06/15/20 21:00 07/02/20 18:46 Lipitor PO 40 mg BEDTIME KAROLINA Administration Bisacodyl 10 mg 06/15/20 20:52 06/29/20 09:01 Bisac-Evac MD 10 mg DAILY PRN Administration Constipation Dextrose 25 ml 06/15/20 22:42 06/15/20 23:03 D50w IVP 25 ml ONCE PRN Administration hypoglycemia prot ocol Protocol Dextrose 50 ml 06/15/20 22:42 D50w IVP PRN PRN hypoglycemia prot ocol Protocol Docusate Sodium 100 mg 06/27/20 08:38 07/02/20 18:46 Docusate Sodium 100 Mg Capsule PO 100 mg DAILY PRN Administration CONSTIPATION Folic Acid 1 mg 06/16/20 09:00 07/03/20 08:44 Folic Acid PO 1 mg DAILY KAROLINA Administration Furosemide 40 mg 07/02/20 09:00 07/03/20 08:45 Furosemide 10 Mg /Ml Sdv 4ml IVP 40 mg DAILY KAROLINA Administration Glucagon 1 mg 06/15/20 22:42 Glucagen IM ONCE PRN Adult Acute Hypog lycemia Prot. Protocol Dextrose 500 mls @ 100 mls /hr 06/15/20 22:42 D5w IV ONCE PRN Adult Acute Hypog lycemia Prot Protocol Levothyroxine Sodi um 225 mcg 06/16/20 09:00 07/03/20 08:44 Synthroid PO 225 mcg DAILY KAROLINA Administration Magnesium Oxide 400 mg 06/21/20 09:00 07/03/20 08:44 Magnesium Oxide 400 Mg Tablet PO 400 mg BID KAROLINA Administration Metoprolol Tartrat e 25 mg 06/23/20 09:00 07/03/20 08:44 Metoprolol Tartr ate 25 Mg Tablet PO 25 mg BID KAROLINA Administration Nystatin 1 applic 06/23/20 06:30 06/25/20 23:51 Nystatin Powder 15 Gm Btl TOPICAL 1 applic BID PRN Administration under folds Ondansetron HCl 4 mg 06/15/20 20:52 Zofran IVP Q6H PRN NAUSEA AND VOMITI NG Pantoprazole Sodiu m 40 mg 06/21/20 09:00 07/03/20 08:[address] 40 Mg Tablet PO 40 mg BID KAROLINA Administration Zolpidem Tartrate 5 mg 06/30/20 14:01 07/02/20 19:03 Zolpidem 5 Mg Ta blet PO 5 mg BEDTIME PRN Administration INSOMNIA Penicillins Allergy (Verified 06/15/20 13:47) ALGY-Hives Vitals/I&O/Wt Last Vital Signs Temp 96.8 F L 07/03/20 07:26 Pulse 99 07/03/20 08:19 Resp 20 H 07/03/20 08:16 BP 141/87 07/03/20 07:26 Pulse Ox 94 07/03/20 08:16 07/02/20 07/03/20 07/03/20 22:59 06:59 14:59 Intake Total 220 / 700 400 / 1100 240 / 240 Output Total 1000 / 2350 Balance 220 / -650 -600 / -1250 240 / 240 Weight last 48 hrs Weight 76.204 kg Weight 121.472 kg Physical Exam Const: COMMON NORMALS: no acute distress GENERAL APPEARANCE: cooperative, comfortable and frail appearing NUTRITIONAL APPEARANCE: obese morbidly obese OTHER: -resting in bed HENMT: COMMON NORMALS: normocephalic and atraumatic HEAD & SCALP: normocephalic and atraumatic GENERAL EAR: hearing grossly impaired Laterality: diffuse Eye: COMMON NORMALS: Equal, round and reactive pupils present, EOMs intact bilaterally and conjunctivae normal CONJUNCTIVA: Yes conjunctivae normal PUPIL: Yes Equal, round and reactive pupils present Neck/C-Spine: GENERAL: Yes normal visual inspection and Yes trachea midline Resp: COMMON NORMALS: normal respiratory effort, No retractions and No use of accessory muscles EFFORT & INSPECTION: Yes symmetric chest movement, Yes tachypneic and Yes prolonged expiratory phase AUSCULTATION: diminished lung sounds OTHER: -on 2 L NC Cardio: COMMON NORMALS: regular rate, S1 normal heart sound present, S2 normal heart sound present and No murmurs present (Cardio) RATE: regular rate RHYTHM: abnormal rhythm irregularly irregular HEART SOUNDS: S1 normal heart sound present and S2 normal heart sound present GI: COMMON NORMALS: Normal to inspection, nondistended, normoactive bowel sounds present and Soft to palpation INSPECTION: Yes central obesity PALPATION: Yes Soft to palpation : BLADDER/KIDNEY EXAM: Yes catheter in place Catheter type (Female): urethral Extremity: COMMON NORMALS: normal to inspection and full ROM; negative for no pedal edema NARRATIVE EXTREMITY EXAM: -bilateral LE pitting edema up to thigh level GENERAL: Yes edema (bilateral LEs) Neuro: COMMON NORMALS: moves all extremities, no focal motor deficits and no sensory deficits noted OTHER: -arousable for very brief periods of time Psych: COMMON NORMALS: mental status grossly normal, Normal thought process present, cooperative, normal affect and speech normal SPEECH: Yes normal speech THOUGHT PROCESS: Normal thought process present OTHER: -unable to assess due to mental status Skin: COMMON NORMALS: no jaundice, no petechiae and no mottling NARRATIVE SKIN EXAM: -noted open ulcers on L leg, noted purulent drainage; overall unchanged. Urinary Catheter Management^: Boswell: Cath Placed During This Visit: yes Reason for Continuing Indwelling Catheter: Acute Urinary Retention or Obstruction Urinary Catheter Date of Insertion: 06/15/20 Urinary Catheter Time of Insertion: 19:50 Data : 07/02/20 06:56 07/02/20 06:56 A&P Assessment and plan (1) Acute exacerbation of CHF (congestive heart failure): -improving, remains on IV lasix -daily weights, monitor Is & Os, so far has diuresed 5.5 L -has had multiple Echo studies done due to noted pericardial effusion, no tamponade physiology; EF=55%, G2DD -appreciate cardiology evaluation Status: Acute Qualifiers: Heart failure type: diastolic Qualified Code(s): I50.33 - Acute on chronic diastolic (congestive) heart failure (2) Respiratory failure with hypoxia: -oxygen requirement has decreased; initially required BiPAP vs. heated high flow -baseline oxygen requirement prior to this hospitalization was 3 L -influenza, bacterial antigens, Legionella, MRSA negative. -rapid COVID-19 test negative. Recently treated for COVID-19 pneumonia requiring hospitalization. -noted bilateral lower lobe compressive atelectasis, increasing L pleural effusion on most recent CXR (06/30) -appreciate pulmonology evaluation -off antibiotics Status: Acute Qualifiers: Chronicity: acute on chronic Qualified Code(s): J96.21 - Acute and chronic respiratory failure with hypoxia (3) Gout attack: -treated with short course of oral steroids Status: Resolved Qualifiers: Gout etiology: unspecified cause Gout site: wrist Laterality: left Qualified Code(s): M10.9 - Gout, unspecified (4) Septic shock: -Shock with multiorgan involvement likely multifactorial given sepsis 2/2 PNA as well as cardiogenic due to pericardial effusion without tamponade physiology. Resolved as evidenced by resolved leukocytosis, off pressor support, no lactic acidosis, afebrile -off antibiotics (previously on Primaxin, Vanc, Levaquin, Aztreonam) -CT A/P has not shown any source of intrabdominal infection -blood cx , urine cx, sputum cx and catheter tip culture have shown no growth. -UA was indicative of infection; urine cx negative. Status: Resolved (5) Pericardial effusion: -without tamponade physiology per serial Echo monitoring Status: Acute (6) Atrial fibrillation with RVR: -HR controlled, telemetry monitoring -on BB, amiodarone -on AC with Eliquis; need to monitor H/H -Echo as noted above Status: Resolved (7) Shock liver: -noted significant increase in LFTs indicating acute liver failure earlier in the hospital course -likely related to shock as noted above -has known large left hepatic lobe lesion; stable per repeat imaging -LFTs have normalized, ALP trending down Status: Resolved (8) Acute kidney injury: -Cr at baseline, good urine output -baseline Cr appears to be around 1.2-1.6 -off IV fluid hydration -Continue to monitor renal function, renally dose meds, avoid nephrotoxins -CPK wnl -nephrology evaluation appreciated -has Boswell catheter in place; assess daily for removal Status: Resolved (9) Sepsis: -as noted above Status: Resolved Qualifiers: Acute respiratory failure type: with hypoxia Sepsis acute organ dysfunction status: with acute organ dysfunction Sepsis type: sepsis due to unspecified organism Severe sepsis acute organ dysfunction type: acute respiratory failure Severe sepsis shock status: with septic shock Qualified Code(s): A41.9 - Sepsis, unspecified organism; R65.21 - Severe sepsis with septic shock; J96.01 - Acute respiratory failure with hypoxia (10) Hematuria: -previously noted, now resolved -H/H stable; on Eliquis Status: Acute Qualifiers: Hematuria type: gross Qualified Code(s): R31.0 - Gross hematuria (11) Elevated troponin: -noted elevated troponins with no significant delta x 6 hrs -this is likely type II due to demand ischemia secondary to severe sepsis -Echo noted above Status: Acute (12) Anemia: -baseline Hg is around 9. -continue to trend H/H Status: Chronic Qualifiers: Anemia type: unspecified type Qualified Code(s): D64.9 - Anemia, unspecified (13) Aortic stenosis: -noted mild to moderate per last Echo (09/2019) Status: Chronic Qualifiers: Cardiac valve disease etiology: etiology unspecified Qualified Code(s): I35.0 - Nonrheumatic aortic (valve) stenosis (14) Hyperlipidemia: -on statin Status: Chronic Qualifiers: Hyperlipidemia type: unspecified Qualified Code(s): E78.5 - Hyperlipidemia, unspecified (15) Hypertension: -VSS; continue to monitor -continue oral antihypertensives Status: Chronic Qualifiers: Hypertension type: essential hypertension Qualified Code(s): I10 - Essential (primary) hypertension (16) Pulmonary embolism: -Prior hx of PE -On Eliquis Status: Chronic Qualifiers: Acute cor pulmonale presence: unspecified Chronicity: chronic Pulmonary embolism type: unspecified Qualified Code(s): I27.82 - Chronic pulmonary embolism (17) Elevated INR: -Coagulopathy likely related to liver failure and shock -Venous duplex negative for DVT -CTA was not done initially due to renal impairment. -INR improved -on Eliquis -continue to monitor for bleeding Status: Acute (18) Physical deconditioning: -Patient has severe physical deconditioning given prolonged hospital course. Activity level was limited even prior to hospital stay -PT ongoing evaluation appreciated -strict fall precautions Status: Acute Additional A&P Information -Morbid obesity: BMI-44 kg/m2 -hx of hypothyroidism; on levothyroxine -LE edema and ulcers; wound care as needed -Thrombocytopenia; platelet count stable -Hypoalbuminemia; s/p albumin x 1 -mechanical soft diet -GI ppx with PPI -DVT ppx not needed as on Eliquis -Dispo: return to [facility] -Code status: FULL code Attestations Medical Necessity Statement*: Patient requires hospitalization for continued IV diuresis, continued monitoring of hemodynamic and respiratory status. Time Spent in Patient Care: Greater than 35 minutes (>than 50% of time spent in counselling and/or direct pt care on unit) . Coding Level of Care Code Acute [employer] for [facility] Fwd Exam Comprehensive Diagnoses Acute exacerbation of CHF (congestive heart failure) I50.33 Heart failure type: diastolic Respiratory failure with hypoxia J96.21 Chronicity: acute on chronic Gout attack M10.9 Gout etiology: unspecified cause Gout site: wrist Laterality: left Septic shock A41.9; R65.21 Pericardial effusion I31.3 Atrial fibrillation with RVR I48.91 Shock liver K72.00 Acute kidney injury N17.9 Sepsis A41.9; R65.21; J96.01 Acute respiratory failure type: with hypoxia Sepsis acute organ dysfunction status: with acute organ dysfunction Sepsis type: sepsis due to unspecified organism Severe sepsis acute organ dysfunction type: acute respiratory failure Severe sepsis shock status: with septic shock Hematuria R31.0 Hematuria type: gross Elevated troponin R79.89 Anemia D64.9 Anemia type: unspecified type Aortic stenosis I35.0 Cardiac valve disease etiology: etiology unspecified Hyperlipidemia E78.5 Hyperlipidemia type: unspecified Hypertension I10 Hypertension type: essential hypertension Pulmonary embolism I27.82 Acute cor pulmonale presence: unspecified Chronicity: chronic Pulmonary embolism type: unspecified Elevated INR R79.1 Physical deconditioning R53.81
[2020-07-03] MEDS: acetylcysteine 200 mg/mL SDV 4 mL 100 MG INHALATION ×2 (14:29→20:36)
[2020-07-03 16:07] LABS: Glucose Point of Care 97 mg/dL (70-110)
[2020-07-03] MEDS: docusate sodium 100 mg Capsule PO (20:37)
[2020-07-03] MEDS: atorvastatin 40 mg Tablet PO (20:37)
[2020-07-03] MEDS: zolpidem 5 mg Tablet PO (20:37)
[2020-07-03] MEDS: ondansetron 2 mg/ML SDV 2 mL 4 MG IVP (20:38)
[2020-07-03 20:57] LABS: Glucose Point of Care 118 mg/dL (70-110)
[2020-07-04] VITALS (11 sets, daily range): BP systolic 93–170; BP diastolic 56–89; PULSE 64–96; RESP 18–31; TEMP 35.7–36.6; O2SAT 93–100
[2020-07-04 04:59] LABS: Basophils % 0.8 %; Eosinophils # 0.1 10^3/uL (0.0-0.8); Hematocrit 30.2 % (37.0-47.0); Hemoglobin 8.1 g/dL (11.5-15.3); Lymphocytes # 0.8 10^3/uL (0.8-4.8); Lymphocytes % 18.9 %; Mean Corpuscular HGB Conc 26.8 g/dL (30.0-36.0); Mean Corpuscular Hemoglobin 26.6 pg (28.0-34.0); Mean Corpuscular Volume 99.3 fL (81-99); Mean Platelet Volume 12.5 fL (7.4-10.4); Monocytes # 0.5 10^3/uL (0.2-0.9); Monocytes % 13.6 %; Neutrophils # 2.55 10^3/uL (1.8-7.7); Neutrophils % 64.4 %; Nucleated Red Blood Cells % 0 %; Platelet Count 130 10^3/cmm (130-400); Red Blood Count 3.04 10^6/uL (4.1-5.3); Red Cell Distribution Width 21.8 % (12.1-15.1)
[2020-07-04 05:15] LABS: Blood Urea Nitrogen 18 mg/dL (8-23); Calcium 8.3 mg/dL (8.5-10.5); Chloride 101 mmol/L (98-107); Glucose 97 mg/dL (65-115); Osmolality Calculated 302 mOsm/kg (285-295); Sodium 145 mmol/L (136-145)
[2020-07-04 05:22] LABS: Carbon Dioxide 42 mmol/L (22-29)
--- NOTE | 2020-07-04 06:12 | PC.NURSE ---
End of shift: Patient has rested well this shift. Vitals remain stable. Patient continues to not want to wear her bipap at nighttime.
[2020-07-04 06:36] LABS: Glucose Point of Care 93 mg/dL (70-110)
[2020-07-04] MEDS: ipratropium-albuterol 3 mL Neb INHALATION ×3 (08:27→21:35)
[2020-07-04] MEDS: acetylcysteine 200 mg/mL SDV 4 mL 100 MG INHALATION (08:27)
--- NOTE | 2020-07-04 08:44 | P.PN_ITS ---
Subjective Subjective: Interval history: Hemodynamically stable, remains on 3 L nasal cannula, afebrile, had 500 mL urine output overnight. Stable renal function, will switch from IV to oral Lasix today, so far has diuresed 6.6 L /12 kg. Resting quietly in bed, discussed possibility of discharge home in the next day or 2. We will discontinue Boswell catheter. Medications: Reviewed: Yes Medication Review Details: Active Medications Generic Name Dose Route Start Last Admin Trade Name Freq PRN Reason Stop Dose Admin Acetaminophen 650 mg 06/15/20 20:52 06/22/20 19:35 Acetaminophen 32 5 Mg Tablet PO 650 mg Q6H PRN Administration MILD PAIN Acetaminophen 650 mg 06/15/20 20:52 Tylenol MS Q6H PRN FEVER Acetylcysteine 100 mg 06/20/20 09:00 07/04/20 08:27 Acetylcysteine 2 00 Mg/Ml Sdv 4 Ml INHALATION 100 mg TID KAROLINA Administration Albuterol Sulfate 2 puff 06/15/20 21:50 Ventolin INHALATION Q4H.RESPIRATORY P RN SHORTNESS OF SHERLEY TH Albuterol/Ipratrop ium 3 ml 06/20/20 09:00 07/04/20 08:27 Ipratropium-Albu terol 3 Ml Neb INHALATION 3 ml TID KAROLINA Administration Amiodarone HCl 200 mg 06/30/20 18:00 07/03/20 18:16 Amiodarone 200 M g Tablet PO 200 mg BID KAROLINA Administration Apixaban 2.5 mg 06/28/20 09:27 06/30/20 17:58 Apixaban 5 Mg Ta blet PO 2.5 mg BID KAROLINA Administration Atorvastatin Calci um 40 mg 06/15/20 21:00 07/03/20 20:37 Lipitor PO 40 mg BEDTIME KAROLINA Administration Bisacodyl 10 mg 06/15/20 20:52 06/29/20 09:01 Bisac-Evac MS 10 mg DAILY PRN Administration Constipation Dextrose 25 ml 06/15/20 22:42 06/15/20 23:03 D50w IVP 25 ml ONCE PRN Administration hypoglycemia prot ocol Protocol Dextrose 50 ml 06/15/20 22:42 D50w IVP PRN PRN hypoglycemia prot ocol Protocol Docusate Sodium 100 mg 06/27/20 08:38 07/03/20 20:37 Docusate Sodium 100 Mg Capsule PO 100 mg DAILY PRN Administration CONSTIPATION Folic Acid 1 mg 06/16/20 09:00 07/03/20 08:44 Folic Acid PO 1 mg DAILY AKROLINA Administration Furosemide 20 mg 07/04/20 16:00 Furosemide 20 Mg Tablet PO BID@08,16 KAROLINA Glucagon 1 mg 06/15/20 22:42 Glucagen IM ONCE PRN Adult Acute Hypog lycemia Prot. Protocol Dextrose 500 mls @ 100 mls /hr 06/15/20 22:42 D5w IV ONCE PRN Adult Acute Hypog lycemia Prot Protocol Levothyroxine Sodi um 225 mcg 06/16/20 09:00 07/03/20 08:44 Synthroid PO 225 mcg DAILY KAROLINA Administration Magnesium Oxide 400 mg 06/21/20 09:00 07/03/20 18:16 Magnesium Oxide 400 Mg Tablet PO 400 mg BID KAROLINA Administration Metoprolol Tartrat e 25 mg 06/23/20 09:00 07/03/20 18:16 Metoprolol Tartr ate 25 Mg Tablet PO 25 mg BID KAROLINA Administration Nystatin 1 applic 06/23/20 06:30 06/25/20 23:51 Nystatin Powder 15 Gm Btl TOPICAL 1 applic BID PRN Administration under folds Ondansetron HCl 4 mg 06/15/20 20:52 07/03/20 20:38 Zofran IVP 4 mg Q6H PRN Administration NAUSEA AND VOMITI NG Pantoprazole Sodiu m 40 mg 06/21/20 09:00 07/03/20 18:[address] 40 Mg Tablet PO 40 mg BID KAROLINA Administration Zolpidem Tartrate 5 mg 06/30/20 14:01 07/03/20 20:37 Zolpidem 5 Mg Ta blet PO 5 mg BEDTIME PRN Administration INSOMNIA Penicillins Allergy (Verified 06/15/20 13:47) ALGY-Hives Vitals/I&O/Wt Last Vital Signs Temp 96.8 F L 07/04/20 07:41 Pulse 85 07/04/20 08:30 Resp 18 07/04/20 08:30 BP 116/73 07/04/20 07:41 Pulse Ox 96 07/04/20 08:30 07/03/20 07/04/20 07/04/20 22:59 06:59 14:59 Intake Total 240 / 720 100 / 820 120 / 120 Output Total 350 / 1350 500 / 1850 Balance -110 / -630 -400 / -1030 120 / 120 Weight last 48 hrs Weight 119.295 kg Weight 119.295 kg Weight 119.204 kg Weight 76.204 kg Physical Exam Const: COMMON NORMALS: no acute distress GENERAL APPEARANCE: cooperative, comfortable and frail appearing NUTRITIONAL APPEARANCE: obese morbidly obese OTHER: -resting in bed, appears fatigued HENMT: COMMON NORMALS: normocephalic and atraumatic HEAD & SCALP: normocephalic and atraumatic GENERAL EAR: hearing grossly impaired Laterality: diffuse Eye: COMMON NORMALS: Equal, round and reactive pupils present, EOMs intact b ilaterally and conjunctivae normal CONJUNCTIVA: Yes conjunctivae normal PUPIL: Yes Equal, round and reactive pupils present Neck/C-Spine: GENERAL: Yes normal visual inspection and Yes trachea midline Resp: COMMON NORMALS: normal respiratory effort, No retractions and No use of accessory muscles EFFORT & INSPECTION: Yes symmetric chest movement and Yes tachypneic AUSCULTATION: diminished lung sounds OTHER: -on 3 L NC Cardio: COMMON NORMALS: regular rate, S1 normal heart sound present, S2 normal heart sound present and No murmurs present (Cardio) RATE: regular rate RHYTHM: abnormal rhythm irregularly irregular HEART SOUNDS: S1 normal heart sound present and S2 normal heart sound present GI: COMMON NORMALS: Normal to inspection, nondistended, normoactive bowel sounds present and Soft to palpation INSPECTION: Yes central obesity PALPATION: Yes Soft to palpation : BLADDER/KIDNEY EXAM: Yes catheter in place Catheter type (Female): urethral Extremity: COMMON NORMALS: normal to inspection and full ROM NARRATIVE EXTREMITY EXAM: -trace edema Neuro: COMMON NORMALS: moves all extremities, no focal motor deficits and no sensory deficits noted Psych: COMMON NORMALS: mental status grossly normal, Normal thought process present, cooperative and speech normal SPEECH: Yes normal speech MOOD & AFFECT: Yes Flat affect present THOUGHT PROCESS: Normal thought process present Skin: COMMON NORMALS: no jaundice, no petechiae and no mottling NARRATIVE SKIN EXAM: -previously noted open ulcers on RLE now closed Urinary Catheter Management^: Boswell: Cath Placed During This Visit: yes Reason for Continuing Indwelling Catheter: Acute Urinary Retention or Obstruction Urinary Catheter Date of Insertion: 06/15/20 Urinary Catheter Time of Insertion: 19:50 Data : 11/24/20 03:33 07/04/20 03:33 A&P Assessment and plan (1) Acute exacerbation of CHF (congestive heart failure): -improving, remains on IV lasix; switch to oral lasix -daily weights, monitor Is & Os, so far has diuresed 6.6 L/12 kg; d/c Boswell -has had multiple Echo studies done due to noted pericardial effusion, no tamponade physiology; EF=55%, G2DD -appreciate cardiology evaluation Status: Acute Qualifiers: Heart failure type: diastolic Qualified Code(s): I50.33 - Acute on chronic diastolic (congestive) heart failure (2) Respiratory failure with hypoxia: -oxygen requirement has decreased; initially required BiPAP vs. heated high flow -baseline oxygen requirement prior to this hospitalization was 3 L -influenza, bacterial antigens, Legionella, MRSA negative. -rapid COVID-19 test negative. Recently treated for COVID-19 pneumonia requiring hospitalization. -noted bilateral lower lobe compressive atelectasis, increasing L pleural effusion on most recent CXR (06/30) -appreciate pulmonology evaluation -off antibiotics Status: Acute Qualifiers: Chronicity: acute on chronic Qualified Code(s): J96.21 - Acute and chronic respiratory failure with hypoxia (3) Gout attack: -treated with short course of oral steroids Status: Resolved Qualifiers: Gout etiology: unspecified cause Gout site: wrist Laterality: left Qualified Code(s): M10.9 - Gout, unspecified (4) Septic shock: -Shock with multiorgan involvement likely multifactorial given sepsis 2/2 PNA as well as cardiogenic due to pericardial effusion without tamponade physiology. Resolved as evidenced by resolved leukocytosis, off pressor support, no lactic acidosis, afebrile -off antibiotics (previously on Primaxin, Vanc, Levaquin, Aztreonam) -CT A/P has not shown any source of intrabdominal infection -blood cx , urine cx, sputum cx and catheter tip culture have shown no growth. -UA was indicative of infection; urine cx negative. Status: Resolved (5) Pericardial effusion: -without tamponade physiology per serial Echo monitoring Status: Acute (6) Atrial fibrillation with RVR: -HR controlled, telemetry monitoring -on BB, amiodarone -on AC with Eliquis; need to monitor H/H -Echo as noted above Status: Resolved (7) Shock liver: -noted significant increase in LFTs indicating acute liver failure earlier in the hospital course -likely related to shock as noted above -has known large left hepatic lobe lesion; stable per repeat imaging -LFTs have normalized, ALP trending down Status: Resolved (8) Acute kidney injury: -Cr at baseline, good urine output -baseline Cr appears to be around 1.2-1.6 -off IV fluid hydration -Continue to monitor renal function, renally dose meds, avoid nephrotoxins -CPK wnl -nephrology evaluation appreciated -has Boswell catheter in place; assess daily for removal Status: Resolved (9) Sepsis: -as noted above Status: Resolved Qualifiers: Acute respiratory failure type: with hypoxia Sepsis acute organ dysfunction status: with acute organ dysfunction Sepsis type: sepsis due to unspecified organism Severe sepsis acute organ dysfunction type: acute respiratory failure Severe sepsis shock status: with septic shock Qualified Code(s): A41.9 - Sepsis, unspecified organism; R65.21 - Severe sepsis with septic shock; J96.01 - Acute respiratory failure with hypoxia (10) Hematuria: -previously noted, now resolved -H/H stable; on Eliquis Status: Acute Qualifiers: Hematuria type: gross Qualified Code(s): R31.0 - Gross hematuria (11) Elevated troponin: -noted elevated troponins with no significant delta x 6 hrs -this is likely type II due to demand ischemia secondary to severe sepsis -Echo noted above Status: Acute (12) Anemia: -baseline Hg is around 9. -continue to trend H/H; has been stable around 8 so far Status: Chronic Qualifiers: Anemia type: unspecified type Qualified Code(s): D64.9 - Anemia, unspecified (13) Aortic stenosis: -noted mild to moderate per last Echo (09/2019) Status: Chronic Qualifiers: Cardiac valve disease etiology: etiology unspecified Qualified Code(s): I35.0 - Nonrheumatic aortic (valve) stenosis (14) Hyperlipidemia: -on statin Status: Chronic Qualifiers: Hyperlipidemia type: unspecified Qualified Code(s): E78.5 - Hyperlipidemia, unspecified (15) Hypertension: -VSS; continue to monitor -continue oral antihypertensives Status: Chronic Qualifiers: Hypertension type: essential hypertension Qualified Code(s): I10 - Essential (primary) hypertension (16) Pulmonary embolism: -Prior hx of PE -On Eliquis Status: Chronic Qualifiers: Acute cor pulmonale presence: unspecified Chronicity: chronic Pulmonary embolism type: unspecified Qualified Code(s): I27.82 - Chronic pulmonary embolism (17) Elevated INR: -Coagulopathy likely related to liver failure and shock -Venous duplex negative for DVT -CTA was not done initially due to renal impairment. -INR improved -on Eliquis -continue to monitor for bleeding Status: Acute (18) Physical deconditioning: -Patient has severe physical deconditioning given prolonged hospital course. Activity level was limited even prior to hospital stay -PT ongoing evaluation appreciated -strict fall precautions Status: Acute Additional A&P Information -Morbid obesity: BMI-40 kg/m2 -hx of hypothyroidism; on levothyroxine -LE edema and ulcers; wound care as needed -Thrombocytopenia; platelet count stable -Hypoalbuminemia; s/p albumin x 1 -mechanical soft diet -GI ppx with PPI -DVT ppx not needed as on Eliquis -Dispo: return to [facility] -Code status: FULL code -anticipate discharge in the next 24-48 hrs if continued stability/improvement Attestations Medical Necessity Statement*: Patient requires hospitalization for continued management of acute CHF exacerbation, transitioned to oral diuretics today. Time Spent in Patient Care: 16 - 35 minutes (>than 50% of time spent in counselling and/or direct pt care on unit) . Coding Level of Care Code Acute Rough Rounder for [facility] Fwd Exam Comprehensive Diagnoses Acute exacerbation of CHF (congestive heart failure) I50.33 Heart failure type: diastolic Respiratory failure with hypoxia J96.21 Chronicity: acute on chronic Gout attack M10.9 Gout etiology: unspecified cause Gout site: wrist Laterality: left Septic shock A41.9; R65.21 Pericardial effusion I31.3 Atrial fibrillation with RVR I48.91 Shock liver K72.00 Acute kidney injury N17.9 Sepsis A41.9; R65.21; J96.01 Acute respiratory failure type: with hypoxia Sepsis acute organ dysfunction status: with acute organ dysfunction Sepsis type: sepsis due to unspecified organism Severe sepsis acute organ dysfunction type: acute respiratory failure Severe sepsis shock status: with septic shock Hematuria R31.0 Hematuria type: gross Elevated troponin R79.89 Anemia D64.9 Anemia type: unspecified type Aortic stenosis I35.0 Cardiac valve disease etiology: etiology unspecified Hyperlipidemia E78.5 Hyperlipidemia type: unspecified Hypertension I10 Hypertension type: essential hypertension Pulmonary embolism I27.82 Acute cor pulmonale presence: unspecified Chronicity: chronic Pulmonary embolism type: unspecified Elevated INR R79.1 Physical deconditioning R53.81
[2020-07-04] MEDS: magnesium oxide 400 mg tablet PO ×2 (09:34→17:25)
[2020-07-04] MEDS: metoprolol tartrate 25 mg Tablet PO ×2 (09:34→17:24)
[2020-07-04] MEDS: amiodarone 200 mg Tablet PO ×2 (09:34→17:25)
[2020-07-04] MEDS: pantoprazole DR 40 mg Tablet PO ×2 (09:34→17:24)
[2020-07-04] MEDS: folic acid 1 mg Tablet PO (09:34)
[2020-07-04] MEDS: levothyroxine 150 mcg Tablet 225 MCG PO (09:34)
--- NOTE | 2020-07-04 10:45 | DCPLANNER ---
IMM completed with pt on 07/04/20 @ 1545. Copy of rights given to pt.
[2020-07-04 11:26] LABS: Glucose Point of Care 101 mg/dL (70-110)
--- NOTE | 2020-07-04 12:05 | PC.RESP ---
PULMONARY REHAB INFORMATION SENT TO PATIENT.
[2020-07-04] MEDS: FUROsemide 20 mg Tablet PO (15:35)
[2020-07-04 16:38] LABS: Glucose Point of Care 101 mg/dL (70-110)
[2020-07-04] MEDS: docusate sodium 100 mg Capsule PO (17:24)
[2020-07-04] MEDS: atorvastatin 40 mg Tablet PO (20:52)
[2020-07-04] MEDS: zolpidem 5 mg Tablet PO (20:52)
[2020-07-04 21:29] LABS: Glucose Point of Care 100 mg/dL (70-110)
[2020-07-05] VITALS (11 sets, daily range): BP systolic 101–164; BP diastolic 63–98; PULSE 79–94; RESP 18–32; TEMP 36.4–37.1; O2SAT 90–97; BMI 39.8
[2020-07-05] MEDS: acetaminophen 325 mg Tablet 650 MG PO (04:08)
--- NOTE | 2020-07-05 04:14 | PC.NURSE ---
Called Dr. Villanueva regarding patient not feeling well patient says she has no energy short of breath and has a headache. told her co2 was elevated on labs yesterday and patient has not been wearing her bipap. Patient remains alert and oriented. Orders received to get a blood gas and bipap if needed. Read back verbal orders.
[2020-07-05 04:20] LABS: ABG PH Result 7.31 (7.35-7.45); Arterial Blood Gas Hematocrit 26.3 % (37-47); Base Excess ABG 10.6 mmol/L (-2.0-2.0); Blood Gas Sample Type Arterial; Carboxyhemoglobin 2.5 %THgb (0.4-20.1); HCO3 ABG 38.6 mmol/L (22-26); HGB O2 Sat 91.8 % (95-100); Ionized Calcium Level - ABG 1.2 mmol/L (1.1-1.4); Methemoglobin 0.8 % (0.4-1.5); PO2 ABG 73.4 mmHg (80.0-100.0); Potassium Level - ABG 4.5 mmol/L (3.5-5.0); Total Hemoglobin 8.6 g/dL (12-16)
[2020-07-05 04:22] LABS: Blood Gas Operator Identificat HARKR; Blood Gas Sample Site Brachial, left; Oxygen Device NC
--- NOTE | 2020-07-05 05:22 | PC.NURSE ---
End of shift: patient is resting well on bipap respirations are 16 and oxygen is 93%. Otherwise patient has had a uneventful shift. Patient vitals are stable and is alert and oriented.
[2020-07-05 06:14] LABS: Glucose Point of Care 82 mg/dL (70-110)
[2020-07-05] MEDS: ipratropium-albuterol 3 mL Neb INHALATION ×2 (07:30→14:26)
--- NOTE | 2020-07-05 08:00 | PC.NURSE ---
patient up to chair at this time. call light within reach. food and table in reach.
[2020-07-05] MEDS: levothyroxine 150 mcg Tablet 225 MCG PO (09:11)
[2020-07-05] MEDS: metoprolol tartrate 25 mg Tablet PO ×2 (09:11→17:58)
[2020-07-05] MEDS: amiodarone 200 mg Tablet PO ×2 (09:12→17:58)
[2020-07-05] MEDS: folic acid 1 mg Tablet PO (09:12)
[2020-07-05] MEDS: magnesium oxide 400 mg tablet PO ×2 (09:12→17:58)
[2020-07-05] MEDS: pantoprazole DR 40 mg Tablet PO ×2 (09:12→17:58)
[2020-07-05] MEDS: FUROsemide 20 mg Tablet PO ×2 (09:15→15:30)
--- NOTE | 2020-07-05 11:00 | PC.NURSE ---
patient requested to get back in bed. this am patient was a stand by with the walker, at this time patient required 2 assist. patient back in bed at this time resting.
--- NOTE | 2020-07-05 11:01 | PM.PN ---
Subjective Subjective: Interval history: Overnight reported feeling unwell and was noted to be hypercapnic so placed on BiPAP. Currently off of this and seems to be doing better. ABG reviewed, repeat ABG ordered. Boswell catheter discontinued yesterday, and she has been able to void to though she is incontinent. She is sitting in a recliner during my assessment and is now requesting to be returned back to bed. Working on setting up BiPAP at care home. Medications: Reviewed: Yes Medication Review Details: Active Medications Generic Name Dose Route Start Last Admin Trade Name Freq PRN Reason Stop Dose Admin Acetaminophen 650 mg 06/15/20 20:52 07/05/20 04:08 Acetaminophen 32 5 Mg Tablet PO 650 mg Q6H PRN Administration MILD PAIN Acetaminophen 650 mg 06/15/20 20:52 Tylenol ID Q6H PRN FEVER Albuterol Sulfate 2 puff 06/15/20 21:50 Ventolin INHALATION Q4H.RESPIRATORY P RN SHORTNESS OF SHERLEY TH Albuterol/Ipratrop ium 3 ml 06/20/20 09:00 07/05/20 07:30 Ipratropium-Albu terol 3 Ml Neb INHALATION 3 ml TID KAROLINA Administration Amiodarone HCl 200 mg 06/30/20 18:00 07/05/20 09:12 Amiodarone 200 M g Tablet PO 200 mg BID KAROLINA Administration Apixaban 2.5 mg 06/28/20 09:27 06/30/20 17:58 Apixaban 5 Mg Ta blet PO 2.5 mg BID KAROLINA Administration Atorvastatin Calci um 40 mg 06/15/20 21:00 07/04/20 20:52 Lipitor PO 40 mg BEDTIME KAROLINA Administration Bisacodyl 10 mg 06/15/20 20:52 06/29/20 09:01 Bisac-Evac ID 10 mg DAILY PRN Administration Constipation Dextrose 25 ml 06/15/20 22:42 06/15/20 23:03 D50w IVP 25 ml ONCE PRN Administration hypoglycemia prot ocol Protocol Dextrose 50 ml 06/15/20 22:42 D50w IVP PRN PRN hypoglycemia prot ocol Protocol Docusate Sodium 100 mg 06/27/20 08:38 07/04/20 17:24 Docusate Sodium 100 Mg Capsule PO 100 mg DAILY PRN Administration CONSTIPATION Folic Acid 1 mg 06/16/20 09:00 07/05/20 09:12 Folic Acid PO 1 mg DAILY KAROLINA Administration Furosemide 20 mg 07/04/20 16:00 07/05/20 09:15 Furosemide 20 Mg Tablet PO 20 mg BID@08,16 KAROLINA Administration Glucagon 1 mg 06/15/20 22:42 Glucagen IM ONCE PRN Adult Acute Hypog lycemia Prot. Protocol Dextrose 500 mls @ 100 mls /hr 06/15/20 22:42 D5w IV ONCE PRN Adult Acute Hypog lycemia Prot Protocol Levothyroxine Sodi um 225 mcg 06/16/20 09:00 07/05/20 09:11 Synthroid PO 225 mcg DAILY KAROLINA Administration Magnesium Oxide 400 mg 06/21/20 09:00 07/05/20 09:12 Magnesium Oxide 400 Mg Tablet PO 400 mg BID KAROLINA Administration Metoprolol Tartrat e 25 mg 06/23/20 09:00 07/05/20 09:11 Metoprolol Tartr ate 25 Mg Tablet PO 25 mg BID KAROLINA Administration Nystatin 1 applic 06/23/20 06:30 06/25/20 23:51 Nystatin Powder 15 Gm Btl TOPICAL 1 applic BID PRN Administration under folds Ondansetron HCl 4 mg 06/15/20 20:52 07/03/20 20:38 Zofran IVP 4 mg Q6H PRN Administration NAUSEA AND VOMITI NG Pantoprazole Sodiu m 40 mg 06/21/20 09:00 07/05/20 09:[address] 40 Mg Tablet PO 40 mg BID KAROLINA Administration Zolpidem Tartrate 5 mg 06/30/20 14:01 07/04/20 20:52 Zolpidem 5 Mg Ta blet PO 5 mg BEDTIME PRN Administration INSOMNIA Penicillins Allergy (Verified 06/15/20 13:47) ALGY-Hives Vitals/I&O/Wt Last Vital Signs Temp 98 F 07/05/20 04:00 Pulse 94 07/05/20 08:00 Resp 30 H 07/05/20 08:00 BP 164/98 07/05/20 08:00 Pulse Ox 91 07/05/20 08:00 07/04/20 07/05/20 07/05/20 22:59 06:59 14:59 Intake Total 480 / 840 120 / 960 Output Total 450 / 450 Balance 30 / 390 120 / 510 Weight last 48 hrs Weight 118.841 kg Weight 119.295 kg Weight 119.295 kg Weight 119.204 kg Physical Exam Const: COMMON NORMALS: no acute distress GENERAL APPEARANCE: cooperative, comfortable and frail appearing NUTRITIONAL APPEARANCE: obese morbidly obese OTHER: -resting in recliner, appears fatigued HENMT: COMMON NORMALS: normocephalic and atraumatic HEAD & SCALP: normocephalic and atraumatic GENERAL EAR: hearing grossly impaired Laterality: diffuse Eye: COMMON NORMALS: Equal, round and reactive pupils present, EOMs intact bilaterally and conjunctivae normal CONJUNCTIVA: Yes conjunctivae normal PUPIL: Yes Equal, round and reactive pupils present Neck/C-Spine: GENERAL: Yes normal visual inspection and Yes trachea midline Resp: COMMON NORMALS: normal respiratory effort, No retractions and No use of accessory muscles EFFORT & INSPECTION: Yes symmetric chest movement and Yes tachypneic AUSCULTATION: diminished lung sounds OTHER: -on 3 L NC Cardio: COMMON NORMALS: regular rate, regular rhythm, S1 normal heart sound present, S2 normal heart sound present and No murmurs present (Cardio) RATE: regular rate RHYTHM: regular rhythm HEART SOUNDS: S1 normal heart sound present and S2 normal heart sound present OTHER: -normotensive GI: COMMON NORMALS: Normal to inspection, nondistended, normoactive bowel sounds present and Soft to palpation INSPECTION: Yes central obesity PALPATION: Yes Soft to palpation Extremity: COMMON NORMALS: normal to inspection and full ROM NARRATIVE EXTREMITY EXAM: -trace edema GENERAL: Yes edema (bilateral LEs) Neuro: COMMON NORMALS: moves all extremities, no focal motor deficits and no sensory deficits noted Psych: COMMON NORMALS: mental status grossly normal, Normal thought process present, cooperative and speech normal SPEECH: Yes normal speech MOOD & AFFECT: Yes Flat affect present THOUGHT PROCESS: Normal thought process present Skin: COMMON NORMALS: no jaundice, no petechiae and no mottling NARRATIVE SKIN EXAM: -previously noted open ulcers on RLE now healed Urinary Catheter Management^: Boswell: Cath Placed During This Visit: yes, but has since been removed by the nurse Reason for Continuing Indwelling Catheter: Acute Urinary Retention or Obstruction Urinary Catheter Date of Insertion: 06/15/20 Urinary Catheter Time of Insertion: 19:50 Date Urinary Catheter Removed: 07/04/20 Time Urinary Catheter Discontinued: 16:00 Data : 07/04/20 03:33 11/24/20 03:33 A&P Assessment and plan (1) Acute exacerbation of CHF (congestive heart failure): -improving, remains on IV lasix; switch to oral lasix -daily weights, monitor Is & Os, so far has diuresed 6.2 L/12 kg; d/c Boswell -has had multiple Echo studies done due to noted pericardial effusion, no tamponade physiology; EF=55%, G2DD -appreciate cardiology evaluation Status: Acute Qualifiers: Heart failure type: diastolic Qualified Code(s): I50.33 - Acute on chronic diastolic (congestive) heart failure (2) Respiratory failure with hypoxia: -oxygen requirement has decreased; initially required BiPAP vs. heated high flow -baseline oxygen requirement prior to this hospitalization was 3 L -influenza, bacterial antigens, Legionella, MRSA negative. -rapid COVID-19 test negative. Recently treated for COVID-19 pneumonia requiring hospitalization. -noted bilateral lower lobe compressive atelectasis, increasing L pleural effusion on most recent CXR (06/30) -appreciate pulmonology evaluation -off antibiotics Status: Acute Qualifiers: Chronicity: acute on chronic Qualified Code(s): J96.21 - Acute and chronic respiratory failure with hypoxia (3) Gout attack: -treated with short course of oral steroids Status: Resolved Qualifiers: Gout etiology: unspecified cause Gout site: wrist Laterality: left Qualified Code(s): M10.9 - Gout, unspecified (4) Septic shock: -Shock with multiorgan involvement likely multifactorial given sepsis 2/2 PNA as well as cardiogenic due to pericardial effusion without tamponade physiology. Resolved as evidenced by resolved leukocytosis, off pressor support, no lactic acidosis, afebrile -off antibiotics (previously on Primaxin, Vanc, Levaquin, Aztreonam) -CT A/P has not shown any source of intrabdominal infection -blood cx , urine cx, sputum cx and catheter tip culture have shown no growth. -UA was indicative of infection; urine cx negative. Status: Resolved (5) Pericardial effusion: -without tamponade physiology per serial Echo monitoring Status: Acute (6) Atrial fibrillation with RVR: -HR controlled, telemetry monitoring -on BB, amiodarone -on AC with Eliquis; need to monitor H/H -Echo as noted above Status: Resolved (7) Shock liver: -noted significant increase in LFTs indicating acute liver failure earlier in the hospital course -likely related to shock as noted above -has known large left hepatic lobe lesion; stable per repeat imaging -LFTs have normalized, ALP trending down Status: Resolved (8) Acute kidney injury: -Cr at baseline, good urine output -baseline Cr appears to be around 1.2-1.6 -off IV fluid hydration -Continue to monitor renal function, renally dose meds, avoid nephrotoxins -CPK wnl -nephrology evaluation appreciated -has Boswell catheter in place; assess daily for removal Status: Resolved (9) Sepsis: -as noted above Status: Resolved Qualifiers: Acute respiratory failure type: with hypoxia Sepsis acute organ dysfunction status: with acute organ dysfunction Sepsis type: sepsis due to unspecified organism Severe sepsis acute organ dysfunction type: acute respiratory failure Severe sepsis shock status: with septic shock Qualified Code(s): A41.9 - Sepsis, unspecified organism; R65.21 - Severe sepsis with septic shock; J96.01 - Acute respiratory failure with hypoxia (10) Hematuria: -previously noted, now resolved -H/H stable; on Eliquis Status: Acute Qualifiers: Hematuria type: gross Qualified Code(s): R31.0 - Gross hematuria (11) Elevated troponin: -noted elevated troponins with no significant delta x 6 hrs -this is likely type II due to demand ischemia secondary to severe sepsis -Echo noted above Status: Acute (12) Anemia: -baseline Hg is around 9. -continue to trend H/H; has been stable around 8 so far Status: Chronic Qualifiers: Anemia type: unspecified type Qualified Code(s): D64.9 - Anemia, unspecified (13) Aortic stenosis: -noted mild to moderate per last Echo (09/2019) Status: Chronic Qualifiers: Cardiac valve disease etiology: etiology unspecified Qualified Code(s): I35.0 - Nonrheumatic aortic (valve) stenosis (14) Hyperlipidemia: -on statin Status: Chronic Qualifiers: Hyperlipidemia type: unspecified Qualified Code(s): E78.5 - Hyperlipidemia, unspecified (15) Hypertension: -VSS; continue to monitor -continue oral antihypertensives Status: Chronic Qualifiers: Hypertension type: essential hypertension Qualified Code(s): I10 - Essential (primary) hypertension (16) Pulmonary embolism: -Prior hx of PE -On Eliquis Status: Chronic Qualifiers: Acute cor pulmonale presence: unspecified Chronicity: chronic Pulmonary embolism type: unspecified Qualified Code(s): I27.82 - Chronic pulmonary embolism (17) Elevated INR: -Coagulopathy likely related to liver failure and shock -Venous duplex negative for DVT -CTA was not done initially due to renal impairment. -INR improved -on Eliquis -continue to monitor for bleeding Status: Acute (18) Physical deconditioning: -Patient has severe physical deconditioning given prolonged hospital course. Activity level was limited even prior to hospital stay -PT ongoing evaluation appreciated -strict fall precautions Status: Acute Additional A&P Information -Morbid obesity: BMI-40 kg/m2 -hx of hypothyroidism; on levothyroxine -LE edema and ulcers; wound care as needed -Thrombocytopenia; platelet count stable -Hypoalbuminemia; s/p albumin x 1 -During her hospitalization she has been noted to have chronic hypercapnic respiratory failure, will need BiPAP support nightly -mechanical soft diet -GI ppx with PPI -DVT ppx not needed as on Eliquis -Dispo: return to [facility] -Code status: FULL code Attestations Medical Necessity Statement*: Possible discharge today if able to arrange BiPAP. Time Spent in Patient Care: 16 - 35 minutes (>than 50% of time spent in counselling and/or direct pt care on unit). Coding Level of Care Code Acute [employer]ycler [employer] for [facility] Fwd Exam Comprehensive Diagnoses Acute exacerbation of CHF (congestive heart failure) I50.33 Heart failure type: diastolic Respiratory failure with hypoxia J96.21 Chronicity: acute on chronic Gout attack M10.9 Gout etiology: unspecified cause Gout site: wrist Laterality: left Septic shock A41.9; R65.21 Pericardial effusion I31.3 Atrial fibrillation with RVR I48.91 Shock liver K72.00 Acute kidney injury N17.9 Sepsis A41.9; R65.21; J96.01 Acute respiratory failure type: with hypoxia Sepsis acute organ dysfunction status: with acute organ dysfunction Sepsis type: sepsis due to unspecified organism Severe sepsis acute organ dysfunction type: acute respiratory failure Severe sepsis shock status: with septic shock Hematuria R31.0 Hematuria type: gross Elevated troponin R79.89 Anemia D64.9 Anemia type: unspecified type Aortic stenosis I35.0 Cardiac valve disease etiology: etiology unspecified Hyperlipidemia E78.5 Hyperlipidemia type: unspecified Hypertension I10 Hypertension type: essential hypertension Pulmonary embolism I27.82 Acute cor pulmonale presence: unspecified Chronicity: chronic Pulmonary embolism type: unspecified Elevated INR R79.1 Physical deconditioning R53.81
[2020-07-05 11:12] LABS: ABG PH Result 7.35 (7.35-7.45); Arterial Blood Gas Hematocrit 24.6 % (37-47); Base Excess ABG 11.5 mmol/L (-2.0-2.0); Blood Gas Allen Test Pos; Blood Gas Sample Type Arterial; HCO3 ABG 38.8 mmol/L (22-26); PO2 ABG 68.4 mmHg (80.0-100.0)
[2020-07-05 11:14] LABS: Blood Gas Operator Identificat BROMA; Blood Gas Sample Site Brachial, right; Oxygen Device NC
[2020-07-05 11:30] LABS: ABG PCO2 71.1 mmHg (35-45)
[2020-07-05 12:23] LABS: Glucose Point of Care 105 mg/dL (70-110)
--- NOTE | 2020-07-05 16:02 | PM.DCS ---
Discharge Providers Date of Admission: 06/15/20 18:02 Date of Discharge: July 05, 2020 Attending Provider at Admission: Kelsy Ramirez MD Attending Provider at Discharge: Kelsy Ramirez MD Consults: Cardiology, nephrology Primary Care Provider: Kristian Rincon DO Diagnoses at Discharge Discharge Diagnosis (1) Acute exacerbation of CHF (congestive heart failure): Status: Acute Qualifiers: Heart failure type: diastolic Qualified Code(s): I50.33 - Acute on chronic diastolic (congestive) heart failure (2) Respiratory failure with hypoxia: Status: Acute Qualifiers: Chronicity: acute on chronic Qualified Code(s): J96.21 - Acute and chronic respiratory failure with hypoxia (3) Gout attack: Status: Resolved Qualifiers: Gout etiology: unspecified cause Gout site: wrist Laterality: left Qualified Code(s): M10.9 - Gout, unspecified (4) Septic shock: Status: Resolved (5) Pericardial effusion: Status: Acute (6) Atrial fibrillation with RVR: Status: Resolved (7) Shock liver: Status: Resolved (8) Acute kidney injury: Status: Resolved (9) Sepsis: Status: Resolved Qualifiers: Acute respiratory failure type: with hypoxia Sepsis acute organ dysfunction status: with acute organ dysfunction Sepsis type: sepsis due to unspecified organism Severe sepsis acute organ dysfunction type: acute respiratory failure Severe sepsis shock status: with septic shock Qualified Code(s): A41.9 - Sepsis, unspecified organism; R65.21 - Severe sepsis with septic shock; J96.01 - Acute respiratory failure with hypoxia (10) Hematuria: Status: Acute Qualifiers: Hematuria type: gross Qualified Code(s): R31.0 - Gross hematuria (11) Elevated troponin: Status: Acute (12) Anemia: Status: Chronic Qualifiers: Anemia type: unspecified type Qualified Code(s): D64.9 - Anemia, unspecified (13) Aortic stenosis: Status: Chronic Qualifiers: Cardiac valve disease etiology: etiology unspecified Qualified Code(s): I35.0 - Nonrheumatic aortic (valve) stenosis (14) Hyperlipidemia: Status: Chronic Qualifiers: Hyperlipidemia type: unspecified Qualified Code(s): E78.5 - Hyperlipidemia, unspecified (15) Hypertension: Status: Chronic Qualifiers: Hypertension type: essential hypertension Qualified Code(s): I10 - Essential (primary) hypertension (16) Pulmonary embolism: Status: Chronic Qualifiers: Acute cor pulmonale presence: unspecified Chronicity: chronic Pulmonary embolism type: unspecified Qualified Code(s): I27.82 - Chronic pulmonary embolism (17) Elevated INR: Status: Acute (18) Physical deconditioning: Status: Acute Other Information Additional DC diagnoses/information: -Morbid obesity: BMI-40 kg/m2 -hx of hypothyroidism; on levothyroxine -LE edema and ulcers; wound care as needed -Thrombocytopenia; platelet count stable -Hypoalbuminemia; s/p albumin x 1 Reason for Visit Reason for Visit: DIFFICULTY BREATHING/ RESPIRATORY DISTRESS Hospital Course Hospital Course Patient has had quite a protracted hospital course beginning with admission on 06/15 during which time she had presented with signs and symptoms of overt fluid overload and respiratory distress with high oxygen requirement, need for aggressive diuresis so was admitted to the ICU for close monitoring. They were noted bilateral pleural effusions and pericardial effusion which was assessed with serial echo studies due to concern for potential need for pericardiocentesis. Clinical course has been quite complicated in part due to prior the recent COVID-19 infection. It seems that since this infection she did not quite return to her baseline. There was concern for sepsis as evidenced by lactic acidosis, hypotension and hypoxia on admission so she was covered empirically with broad-spectrum antibiotics; this escalated to septic shock with noted multiorgan involvement. Cardiology was formally consulted due to concern for pericardial effusion and development of atrial fibrillation. She was hypotensive and did require pressor support for some time. Anticoagulation was held, she had previously been on this due to PE but was noted to have supratherapeutic INR. On her second day of admission she was noted to have developed shock liver with significant elevation in her LFTs and subsequent worsening in her renal function at which point nephrology was consulted as well. Much of this was attributed to underlying sepsis and ongoing infection so continued management was recommended. With time and continued treatment, she did gradually improve to the point where she completed her antibiotic course, was sufficiently diuresed with IV Lasix, found to have negative cultures including blood cultures, urine cultures, sputum cultures. She seemed to respond much better with introduction of amiodarone in addition to low-dose beta-heather and once coagulopathy had resolved she was able to resume Eliquis. Liver function as well as renal function improved and returned to her baseline. Sepsis resolved and though she was noted to be consistently anemic did not require transfusion of any blood products. Eventually with clinical stability and improvement she was transitioned to the cardiac stepdown unit primarily to facilitate continued diuresis. Boswell catheter that was placed on admission was eventually discontinued and she has been able to void dependently though she has been incontinent in part due to physical deconditioning and inability to get to and from the bedside commode in a timely fashion. She has been noted to have hypercapnic respiratory failure and needs to use BiPAP primarily at night to prevent CO2 retention which she has had while here with noted subsequent confusion. She is also oxygen dependent with a baseline requirement of 3 L which is what she has been maintained on for several days. She has been hemodynamically stable, has consistently been afebrile, is tolerating oral intake well. She will need appropriate follow-up with her primary care physician as well as with cardiology. She may benefit from follow-up with pulmonology as well. Due to her underlying comorbidities, prolonged hospital course she is at risk for readmission. I am hoping that consistent BiPAP use will diminish this risk and have explained this to the patient. She has been discharged back to [facility] this afternoon. Of note during the course of her hospital stay she was noted to be thrombocytopenic, platelet count has been stable with no need for transfusion of platelets. She also developed an acute gout attack which was treated successfully with a short course of oral steroids. Physical Exam Const: COMMON NORMALS: no acute distress GENERAL APPEARANCE: cooperative, comfortable and frail appearing NUTRITIONAL APPEARANCE: obese morbidly obese OTHER: -resting in recliner, appears fatigued HENMT: COMMON NORMALS: normocephalic and atraumatic HEAD & SCALP: normocephalic and atraumatic GENERAL EAR: hearing grossly impaired Laterality: diffuse Eye: COMMON NORMALS: Equal, round and reactive pupils present, EOMs intact bilaterally and conjunctivae normal CONJUNCTIVA: Yes conjunctivae normal PUPIL: Yes Equal, round and reactive pupils present Neck/C-Spine: GENERAL: Yes normal visual inspection and Yes trachea midline Resp: COMMON NORMALS: normal respiratory effort, No retractions and No use of accessory muscles EFFORT & INSPECTION: Yes symmetric chest movement and Yes tachypneic AUSCULTATION: diminished lung sounds OTHER: -on 3 L NC Cardio: COMMON NORMALS: regular rate, regular rhythm, S1 normal heart sound present, S2 normal heart sound present and No murmurs present (Cardio) RATE: regular rate RHYTHM: regular rhythm HEART SOUNDS: S1 normal heart sound present and S2 normal heart sound present OTHER: -normotensive GI: COMMON NORMALS: Normal to inspection, nondistended, normoactive bowel sounds present and Soft to palpation INSPECTION: Yes central obesity PALPATION: Yes Soft to palpation Extremity: COMMON NORMALS: normal to inspection and full ROM NARRATIVE EXTREMITY EXAM: -trace edema GENERAL: Yes edema (bilateral LEs) Neuro: COMMON NORMALS: moves all extremities, no focal motor deficits and no sensory deficits noted Psych: COMMON NORMALS: mental status grossly normal, Normal thought process present, cooperative and speech normal SPEECH: Yes normal speech MOOD & AFFECT: Yes Flat affect present THOUGHT PROCESS: Normal thought process present Skin: COMMON NORMALS: no jaundice, no petechiae and no mottling NARRATIVE SKIN EXAM: -previously noted open ulcers on RLE now healed Urinary Catheter Management^: Boswell: Cath Placed During This Visit: yes, but has since been removed by the nurse Reason for Continuing Indwelling Catheter: Acute Urinary Retention or Obstruction Urinary Catheter Date of Insertion: 06/15/20 Urinary Catheter Time of Insertion: 19:50 Date Urinary Catheter Removed: 07/04/20 Time Urinary Catheter Discontinued: 16:00 Discharge Data Data Completed and Pending: Completed Studies During Hospitalization Category Date Time Status CT abdomen pelvis wo con [id number] Urge nt Cat Scan 06/16/20 06:[address] chest wo con 7 1250 Routine Cat Scan 06/18/20 14:[address] chest wo con 7 1250 Routine Cat Scan 06/23/20 11:15 Completed XR chest 1V renay ble [id number] Routine Exams 06/21/20 06:00 Completed XR chest 1V renay ble [id number] Routine Exams 06/23/20 06:00 Completed XR chest 1V renay ble [id number] Routine Exams 06/30/20 13:54 Completed XR chest 1V renay ble [id number] Stat Exams 06/15/20 13:48 Completed XR chest 1V renay ble 21682 Urgent Exams 06/16/20 06:46 Completed CV echo complete* [id number] Stat Ultrasound 06/16/20 08:29 Completed CV echo limited 9 3308 Routine Ultrasound 06/18/20 13:12 Completed CV echo limited 9 3308 Routine Ultrasound 06/22/20 17:39 [place] [id number] Routin e Ultrasound 06/16/20 06:49 Completed Pending at discharge Category Date Time Status ABG FULL [Arteria l Blood Gas Full] Stat Lab 07/05/20 04:10 Results Arterial Blood Ga s W/O Coox Routine Lab 06/19/20 18:52 Ordered Labs from last 24 hours 07/05/20 07/05/20 07/05/20 11:51 11:00 06:04 Specimen Type Arterial Sample Site Brachial, right ABG pH 7.35 ABG pCO2 71.1 H* ABG pO2 68.4 L ABG HCO3 38.8 H ABG O2 Saturation ABG Base Excess 11.5 H Kulwinder Test Pos A-a O2 Gradient Hematocrit 24.6 L Hgb O2 Saturation Carboxyhemoglobin Methemoglobin Total Hemoglobin Sodium Potassium Glucose Ionized Calcium O2 Delivery Device Nc O2 Liters/Min 3.0 [employer] Sales [employer] Associate ID Broma POC Glucose 105 82 07/05/20 07/04/20 07/04/20 04:10 21:04 16:30 Specimen Type Arterial Sample Site Brachial, left ABG pH 7.31 L ABG pCO2 76.0 H* ABG pO2 73.4 L ABG HCO3 38.6 H ABG O2 Saturation 95.0 ABG Base Excess 10.6 H Kulwinder Test N/a A-a O2 Gradient Pending Hematocrit 26.3 L Hgb O2 Saturation 91.8 L Carboxyhemoglobin 2.5 Methemoglobin 0.8 Total Hemoglobin 8.6 L Sodium 143.0 Potassium 4.5 Glucose 99.0 Ionized Calcium 1.2 O2 Delivery Device Nc O2 Liters/Min 3.0 [employer] Associate ID Harkr POC Glucose 100 101 Vitals: Last Vital Signs Temp 98.8 F 07/05/20 14:38 Pulse 85 07/05/20 14:38 Resp 24 H 07/05/20 14:38 BP 139/90 07/05/20 14:38 Pulse Ox 94 07/05/20 14:28 Discharge Plan Discharge Patient Disposition: Xfer SNF Condition: Stable Prescriptions: New Pacerone 200 mg Tablet 200 mg PO DAILY Qty: 30 RF: 0 magnesium oxide 400 mg (241.3 mg magnesium) Tablet 400 mg PO BID Qty: 60 RF: 0 furosemide 20 mg Tablet 20 mg PO BID Qty: 60 RF: 0 metoprolol tartrate 25 mg Tablet 25 mg PO BID Qty: 60 RF: 0 Continued budesonide 90 mcg/actuation aerosol powdr breath activated 2 inh INHALATION Q12H Qty: 1 RF: 0 bisacodyl 10 mg Suppository 10 mg SC DAILY PRN (Reason: Constipation) RF: 0 Cough Drops (with eucalyptus) 8 mg Lozenge 8 mg MUCOUS MEMBRANE Q2H PRN (Reason: Cough) RF: 0 Tylenol 325 mg Tablet 350 mg PO DAILY RF: 0 Zofran 4 mg Tablet 4 mg PO Q6H RF: 0 Milk of Magnesia 400 mg/5 mL Suspension 400 mg PO DAILY PRN (Reason: Constipation) RF: 0 cyanocobalamin (vitamin B-12) 1,000 mcg/mL Solution 1,000 mcg SUBCUT Q30D RF: 0 Fleet Enema 19-7 gram/118 mL Enema 118 ml SC DAILY PRN (Reason: Constipation) RF: 0 potassium chloride 20 mEq Tablet Extended Release 20 meq PO DAILY RF: 0 Eliquis 5 mg Tablet 2.5 mg PO BID Qty: 30 RF: 0 levothyroxine 200 mcg tablet 225 mcg PO DAILY RF: 0 aspirin 81 mg Tablet,Chewable 81 mg PO DAILY RF: 0 atorvastatin 40 mg Tablet 40 mg PO BEDTIME Qty: 30 RF: 0 sennosides-docusate sodium 8.6-50 mg Tablet 2 tab PO BID Qty: 60 RF: 0 pantoprazole 40 mg Tablet,Delayed Release (Dr/Ec) 40 mg PO BID Qty: 60 RF: 0 folic acid 1 mg Tablet 1 mg PO DAILY Qty: 30 RF: 0 Discontinued furosemide [Lasix] 80 mg Tablet 80 mg PO DAILY RF: 0 levofloxacin 500 mg Tablet 500 mg PO DAILY RF: 0 verapamil 120 mg Tablet Extended Release 120 mg PO DAILY RF: 0 metoprolol tartrate 50 mg Tablet 100 mg PO BID Qty: 120 RF: 0 Discharge Orders: Discharge Order (Routine); Ordered 07/05/20 Ordered By: Kelsy Ramirez Referrals: Kristian Rincon DO [Primary Care Provider] - 4-7 days Tanisha Ramsey MD [Physician] - 2 weeks Discharge Diet: Advance as tolerated, Cardiac and Diabetic Discharge Activity: As per PT/OT instructions, Oxygen as instructed and Cpap/Bipap as instructed Activity Restrictions/Additional Instructions: -Patient is still a high fall risk so should continue strict fall precautions -She will require continued supplemental oxygen support, 3 L is her requirement but can be titrated as needed to keep her oxygen saturation at or above 92% or for patient comfort -Patient will require BiPAP use at night due to noted chronic hypercapnic respiratory failure Discharge Attestations Time Spent in Discharge Care*: greater than 30 min Specific Discharge Activities: educating patient, discussing with case consultant/social workers/dc planners, documenting/other paperwork and evaluating patient/reviewing data Status at Discharge: Cognitive status at discharge: cognitively intact, Behavioral status at discharge: cooperative and dependent in ADL's, Functional status at discharge: uses cane/walker Overall status at discharge: patient is progressing back to baseline Quality Metrics Clinical Quality Measures During this hospital stay, did patient experience: None Coding Level of Care Code Acute [employer] Technician for [facility] Fwd Exam Comprehensive Diagnoses Acute exacerbation of CHF (congestive heart failure) I50.33 Heart failure type: diastolic Respiratory failure with hypoxia J96.21 Chronicity: acute on chronic Gout attack M10.9 Gout etiology: unspecified cause Gout site: wrist Laterality: left Septic shock A41.9; R65.21 Pericardial effusion I31.3 Atrial fibrillation with RVR I48.91 Shock liver K72.00 Acute kidney injury N17.9 Sepsis A41.9; R65.21; J96.01 Acute respiratory failure type: with hypoxia Sepsis acute organ dysfunction status: with acute organ dysfunction Sepsis type: sepsis due to unspecified organism Severe sepsis acute organ dysfunction type: acute respiratory failure Severe sepsis shock status: with septic shock Hematuria R31.0 Hematuria type: gross Elevated troponin R79.89 Anemia D64.9 Anemia type: unspecified type Aortic stenosis I35.0 Cardiac valve disease etiology: etiology unspecified Hyperlipidemia E78.5 Hyperlipidemia type: unspecified Hypertension I10 Hypertension type: essential hypertension Pulmonary embolism I27.82 Acute cor pulmonale presence: unspecified Chronicity: chronic Pulmonary embolism type: unspecified Elevated INR R79.1 Physical deconditioning R53.81
[2020-07-05 16:47] LABS: Glucose Point of Care 115 mg/dL (70-110)
--- NOTE | 2020-07-05 18:00 | PC.NURSE ---
clayton notified nurse of dr crump wanting to discharge [facility] to [facility] at this time. [facility] called and said they didnt have bipap set up yet, nj from [facility] contacted and was going to take everything over that was needed due to HOME being closed. report was called to long term and transportation set up. transport here to get patient.
== END 2020-07-05 18:00 | disposition skilled nursing facility (03) | DRG 871 ==
LOC: ER 18:48 → ICU 19:14 → CSU 06-27 09:39
PROVIDERS: Emergency Medicine; Family Medicine; Hospitalist; Internal Medicine; Internal Medicine Cardiovascular Disease; Internal Medicine Critical Care Medicine; Internal Medicine Nephrology; Student in an Organized Health Care Education/Training Program; Admitting Provider Family Medicine; Emergency Provider Emergency Medicine; PCP Electrodiagnostic Medicine; Visit Provider Family Medicine
DX: A41.9 Sepsis, unspecified organism (principal); R65.21 Severe sepsis with septic shock; I50.43 Acute on chronic combined systolic (congestive) and diastolic (congestive) heart failure; J96.21 Acute and chronic respiratory failure with hypoxia; K72.00 Acute and subacute hepatic failure without coma; J96.92 Respiratory failure, unspecified with hypercapnia; R57.0 Cardiogenic shock; I13.0 Hypertensive heart and chronic kidney disease with heart failure and stage 1 through stage 4 chronic kidney disease, or unspecified chronic kidney disease; Z68.41 Body mass index [BMI] 40.0-44.9, adult; E87.2 Acidosis; N17.9 Acute kidney failure, unspecified; I31.3 Pericardial effusion (noninflammatory); L97.909 Non-pressure chronic ulcer of unspecified part of unspecified lower leg with unspecified severity; I24.8 Other forms of acute ischemic heart disease; Z86.19 Personal history of other infectious and parasitic diseases; I95.9 Hypotension, unspecified; I35.0 Nonrheumatic aortic (valve) stenosis; I48.0 Paroxysmal atrial fibrillation; N18.2 Chronic kidney disease, stage 2 (mild); Z86.73 Personal history of transient ischemic attack (TIA), and cerebral infarction without residual deficits; K21.9 Gastro-esophageal reflux disease without esophagitis; E78.5 Hyperlipidemia, unspecified; E03.9 Hypothyroidism, unspecified; E66.9 Obesity, unspecified; Z86.711 Personal history of pulmonary embolism; Z87.440 Personal history of urinary (tract) infections; D64.9 Anemia, unspecified; E87.5 Hyperkalemia; Z79.01 Long term (current) use of anticoagulants; Z79.82 Long term (current) use of aspirin; R31.9 Hematuria, unspecified; M10.9 Gout, unspecified; K76.9 Liver disease, unspecified; Z87.01 Personal history of pneumonia (recurrent); D69.59 Other secondary thrombocytopenia; E88.09 Other disorders of plasma-protein metabolism, not elsewhere classified
CPT/HCPCS: 12345; 36415; 36416; 36430; 36556; 36592; 36600; 51702; 71045; 71250; 74176; 80048; 80051; 80053; 80074; 80162; 80202; 81001; 82330; 82550; 82728; 82803; 82805; 82962; 83010; 83540; 83550; 83605; 83615; 83690; 83735; 83880; 84100; 84132; 84145; 84155; 84165; 84484; 85014; 85018; 85025; 85045; 85049; 85378; 85384; 85610; 85730; 86038; 86403; 86431; 86850; 86880; 86900; 86920; 87040; 87070; 87075; 87086; 87205; 87426; 87449; 87641; 87804; 92526; 92610; 93005; 93306; 93308; 93970; 94640; 94660; 94669; 96375; 97110; 97161; 97530; 99284; C1751; C9113; J0282; J0610; J0743; J1160; J1170; J1644; J1815; J1940; J1956; J2060; J2270; J2405; J2765; J3370; J3475; J3480; J3490; J7040; J7050; J7060; J7512; J7608; J7799; P9016; P9047; Q3014

== ENCOUNTER 2020-07-08 16:41 | Emergency (ER) | payer MEDICARE, OTHER, MEDICAID, SELFPAY ==
[2020-07-08] VITALS (11 sets, daily range): BP systolic 89–162; BP diastolic 52–116; PULSE 95–109; RESP 16–42; TEMP 36.4; O2SAT 86–100; BMI 40.3
--- NOTE | 2020-07-08 17:21 | CTR_ITS ---
PROCEDURE INFORMATION: Exam: CT Angiography Chest With Contrast Exam date and time: 07/08/2020 6:43 PM Age: 74 years old Clinical indication: Dyspnea and shortness of breath; Additional info: Hypoxia, sudden onset SOB TECHNIQUE: Imaging protocol: Computed tomographic angiography of the chest with intravenous contrast. 3D rendering (Not supervised by radiologist): MIP and/or 3D reconstructed images were created by the technologist. Radiation optimization: All CT scans at this facility use at least one of these dose optimization techniques: automated exposure control; mA and/or kV adjustment per patient size (includes targeted exams where dose is matched to clinical indication); or iterative reconstruction. Contrast material: VISIPAQUE 320; Contrast volume: 70 ml; Contrast route: INTRAVENOUS (IV); COMPARISON: CTA Thorac/Abd Aor [id number] 06/27/2019 4:53 AM RADIATION DOSE METRICS: Total DLP (mGy-cm): 656.58 FINDINGS: Pulmonary arteries: No pulmonary embolus or aortic dissection. Aorta: Unremarkable. No aortic aneurysm. No aortic dissection. Great vessels off aortic arch: Calcification of the thoracic aorta and/or great vessels consistent with atherosclerotic vessel disease. Lungs: Compressive atelectasis of both lower lobes, lingula and portions of the right middle lobe. Mild right sided pneumonia and or atelectasis. Moderate to severe left-sided pneumonia and or atelectasis and or pulmonary edema with somewhat crowded air bronchograms. Pleural space: Moderate bilateral pleural fluid collections. Heart: Moderate pericardial fluid and/or thickening with cardiomegaly. Severe calcified coronary artery disease. Lymph nodes: Unremarkable. No enlarged lymph nodes. Liver: Continued grossly stable 14.8 cm partially visualized low-density lesion in the left lobe liver with rim calcification. Previously mentioned in CT abdomen pelvis report dated September 26, 2019. Gallbladder and bile ducts: Surgical clips in the gallbladder fossa consistent with cholecystectomy. Bones/joints: Mild thoracic spondylosis. Soft tissues: Unremarkable. CT/CT angio chest PE protcl [id number] IMPRESSION: 1. Moderate bilateral pleural fluid collections. 2. Moderate pericardial fluid and/or thickening with cardiomegaly. 3. Severe calcified coronary artery disease. 4. Compressive atelectasis of both lower lobes, lingula and portions of the right middle lobe. 5. Mild right sided pneumonia and or atelectasis. 6. Moderate to severe left-sided pneumonia and or atelectasis and or pulmonary edema with somewhat crowded air bronchograms. 7. Continued grossly stable 14.8 cm partially visualized low-density lesion in the left lobe liver with rim calcification. Previously mentioned in CT abdomen pelvis report dated September 26, 2019. 8. No pulmonary embolus or aortic dissection. Radiation Dose CTDIVOL = (mGy): DLP = 656.58 (mGy-cm)
[2020-07-08 17:37] LABS: Basophils # 0.1 10^3/uL (0.0-0.1); Basophils % 0.5 %; Eosinophils % 0.1 %; Hematocrit 36.9 % (37.0-47.0); Hemoglobin 10.1 g/dL (11.5-15.3); Lymphocytes # 1.6 10^3/uL (0.8-4.8); Mean Corpuscular HGB Conc 27.4 g/dL (30.0-36.0); Mean Corpuscular Hemoglobin 27.2 pg (28.0-34.0); Mean Corpuscular Volume 99.2 fL (81-99); Mean Platelet Volume 13.3 fL (7.4-10.4); Monocytes # 1.4 10^3/uL (0.2-0.9); Monocytes % 9.1 %; Neutrophils # 12.24 10^3/uL (1.8-7.7); Neutrophils % 79.3 %; Nucleated Red Blood Cells # 0.1 /100WBC; Nucleated Red Blood Cells % 0.5 %; Platelet Count 270 10^3/cmm (130-400); Red Blood Count 3.72 10^6/uL (4.1-5.3); Red Cell Distribution Width 23.7 % (12.1-15.1); White Blood Count 15.5 10^3/uL (4.0-10.0)
--- NOTE | 2020-07-08 17:44 | ECG_ITS ---
[facility] Test Date: 2020-07-08 Pat Name: Krystal Andrews Department: Room: Gender: Female Pattern Filer: : 1945 Requested By: Milka Nieto I Order Number: [id number] Reading MD: RODRIGUEZ VILLALOBOS Measurements Intervals [place] Rate: 103 P: [place]: QRS: 121 QRSD: 159 T: -57 QT: 351 QTc: 461 Interpretive Statements ATRIAL FIBRILLATION WITH RAPID VENTRICULAR RESPONSE INDETERMINATE AXIS RIGHT BUNDLE BRANCH BLOCK [120+ ms QRS DURATION, UPRIGHT V1, 40+ ms S IN I/aVL/V4/V5/V6] ANTEROSEPTAL MYOCARDIAL INFARCTION , OF INDETERMINATE AGE [40+ ms Q WAVE IN V1-V4] ST DEVIATION AND MODERATE T-WAVE ABNORMALITY, CONSIDER INFERIOR ISCHEMIA [-0.1+ mV T WAVE IN II/aVF] Compared to ECG 06/18/2020 13:38:02 Myocardial infarct finding now present T-wave abnormality still present Possible ischemia still present Electronically Signed On 07-08-2020 18:02:18 [employer]AM[employer] by RODRIGUEZ VILLALOBOS [email or web address]
[2020-07-08 17:52] LABS: ABG PH Result 7.26 (7.35-7.45); Arterial Blood Gas Hematocrit 32.5 % (37-47); Base Excess ABG 7.4 mmol/L (-2.0-2.0); Blood Gas Allen Test Pos; Blood Gas Operator Identificat RN; Blood Gas Sample Site Radial, right; Blood Gas Sample Type Arterial; Carboxyhemoglobin 2.5 %THgb (0.4-20.1); HCO3 ABG 36.6 mmol/L (22-26); Methemoglobin 0.8 % (0.4-1.5); Oxygen Device NRB; PO2 ABG 64.6 mmHg (80.0-100.0); Total Hemoglobin 10.6 g/dL (12-16)
--- NOTE | 2020-07-08 17:53 | ED_ITS ---
HPI - SOB/Dyspnea General: Chief Complaint: Shortness of Breath/Dyspnea Stated Complaint: SOB; POST COVID Time Seen by Provider: 07/08/20 16:42 Source: EMS Mode of arrival: EMS Limitations: other (Shortness of breath) History of Present Illness: HPI Narrative: 74-year-old female patient who is a senior living resident on who was discharged from this facility 3 days ago and she was admitted for acute on chronic diastolic heart failure as well as respiratory failure. She had a protracted hospital course and was diagnosed amongst other things with bilateral pleural effusion and a pericardial effusion. According to her [id number] a decision was made not to drain either of the effusions because the patient was high risk. She was then diuresed and discharged back to the senior living. According to the [id number] about 12 hours after she arrived at the senior living she has gradually declined and went from being on oxygen via nasal cannula in the hospital to being on oxygen via some mask. According to senior living staff the patient had been constipated and so she was given laxatives. After she had a bowel movement and they were cleaning her up she had a sudden deterioration in her oxygen saturation and she became short of breath. She was therefore sent to the emergency department. She was diagnosed with COVID-19 more than a month ago. On arrival she came in on a nonrebreather mask with oxygen at 15 L/min and her oxygen saturation were in the 70s. The patient was short of breath and was unable to speak in full sentences, but she was still oriented. MD elicited complaint: shortness of breath Pertinent past history: congestive heart failure Onset (ago): hour(s) Context: recent illness Timing: constant Severity: severe Exacerbating factors: nothing Relieving factors: nothing Review of Systems General: Reports: ROS unobtainable due to medical condition [facility] ED PFS: Medical History (Updated 07/09/20 @ 00:23 by Milka Nieto MD, [facility] [place]) Acute kidney injury Anemia Aortic stenosis Atrial fibrillation and flutter Chronic kidney disease, stage II (mild) CKD (chronic kidney disease) CVA (cerebral vascular accident) DJD (degenerative joint disease) Elevated INR Elevated troponin GERD (gastroesophageal reflux disease) Hyperlipidemia Hypertension Hypothyroidism Obesity Pericardial effusion Pericardial effusion without cardiac tamponade Pneumonia due to COVID-19 virus Pulmonary embolism Respiratory failure with hypoxia UTI (urinary tract infection) Surgical History (Reviewed 07/09/20 @ 00:01 by Milka Nieto MD, [facility] [place]) History of cholecystectomy History of hernia repair History of tubal ligation Family History (Reviewed 07/09/20 @ 00:01 by Milka Nieto MD, [facility] [place] [facility]) Other CAD (coronary artery disease) Social History (Reviewed 07/09/20 @ 00:01 by Milka Nieto MD, [facility] [place]) Smoking and tobacco status: never smoked Alcohol intake: never Housing: Residential Current occupational status: retired Physical Exam Narrative: EXAM NARRATIVE: Patient in respiratory distress, she is awake but lethargic Const: GENERAL APPEARANCE: in distress and lethargic ORIENTATION/CONSCIOUSNESS: Yes lethargic HENMT: COMMON NORMALS: normocephalic and atraumatic HEAD & SCALP: normocephalic and atraumatic Resp: COMMON NORMALS: No use of accessory muscles AUSCULTATION: rales and diminished lung sounds Cardio: COMMON NORMALS: regular rhythm, S1 normal heart sound present and S2 normal heart sound present RATE: tachycardic RHYTHM: regular rhythm HEART SOUNDS: S1 normal heart sound present, S2 normal heart sound present and Murmur heart sound present GI: COMMON NORMALS: Normal to inspection, nondistended, normoactive bowel sounds present, Soft to palpation and non-tender PALPATION: Yes Soft to palpation Extremity: GENERAL: Yes edema (1+ with wrinkled skin suggestive of recent diuresis) Neuro: SENSORIUM/ORIENTATION: Yes lethargic Procedures Central Line Placement Right IJ: Time Out Performed: Yes Patient Placed on Monitor/Pulse Ox: Yes MD Prep: mask, gown and gloves Central Line Prep: Chlorhexidine scrub Local Anesthetic: lidocaine 1% Amount of anesthesia used (mL): 3 Ultrasound Used for Placement: Yes Central Line Lumen Inserted: triple Post Procedure: sutured in place, good blood return, all ports aspirated, flushed, capped and sterile dressing applied Post Procedure X-Ray: tip of catheter in good position and no pneumothorax seen Patient Tolerated Procedure: well Complications: none Course ED course: 74-year-old female patient was recently discharged from this facility and came into the ED in acute respiratory failure. In the emergency department she had to be placed on the BiPAP to maintain saturation on due to hypotension eventually she was started on Levophed drip. She is transferred to [facility] in [place] for further evaluation and management as we have no beds in this facility. Consultations: Consultation #1: Discussed the patient with Dr. Renteria, pca at [facility] and he kindly accepted patient to his service Time: 20:18 Vital Signs: Vital signs: Vital Signs Temperature 97.6 F 07/08/20 16:52 Pulse Rate 95 07/08/20 23:44 Respiratory Rate 23 H 07/08/20 23:44 Blood Pressure 98/52 07/08/20 23:44 Pulse Oximetry 100 07/08/20 23:44 MDM - SOB/Dyspnea MDM Narrative: Medical decision making narrative: 74-year-old female patient who presents to the emergency department in respiratory failure. She was in hypoxic and hypercapnic respiratory failure and needed to be placed on the BiPAP. Her blood gas department has improved on the BiPAP. She was also hypotensive and required pressors. Her mental status also improved while she was on the BiPAP. Because there are no beds available in this facility she was transferred to [facility] for further evaluation and management. While she was in the hospital during her last admission she was diagnosed with bilateral pleural effusions and a pericardial effusion. CTA done today also showed bilateral pleural effusions and pericardial effusion therefore an emergent echocardiogram was done to see if she has an tamponade as she was hypotensive and tachycardic. Echocardiogram was negative for tamponade which showed she has severe pulmonary hypertension and aortic stenosis. These are likely one of the reasons why she is significantly short of breath and hypotensive as she is likely volume dependent. She is transferred to [facility] in [place]. Medical Records: Attestation: I reviewed the patient's medical records. Lab Data: Attestation: I reviewed the patient's lab results. Labs: Lab Results 07/08/20 07/08/20 07/08/20 Range/Units 17:01 17:09 17:09 WBC 15.5 H (4.0-10.0) 10^3/ uL RBC 3.72 L (4.1-5.3) 10^6/u L Hgb 10.1 L (11.5-15.3) g/dL Hct 36.9 L (37.0-47.0) % MCV 99.2 H (81-99) fL MCH 27.2 L (28.0-34.0) pg MCHC 27.4 L (30.0-36.0) g/dL RDW 23.7 H (12.1-15.1) % Plt Count 270 (130-400) 10^3/c mm MPV 13.3 H (7.4-10.4) fL Neut % (Auto) 79.3 % Lymph % (Auto) 10.0 % [place] % (Auto) 9.1 % Eos % (Auto) 0.1 % Baso % (Auto) 0.5 % Neut # (Auto) 12.24 H (1.8-7.7) 10^3/u L Lymph # (Auto) 1.6 (0.8-4.8) 10^3/u L [place] # (Auto) 1.4 H (0.2-0.9) 10^3/u L Eos # (Auto) 0.0 (0.0-0.8) 10^3/u L Baso # (Auto) 0.1 (0.0-0.1) 10^3/u L Nucleated RBC % (a uto) 0.5 % Nucleated RBCs # 0.1 /100WBC D-Dimer (0-0.59) ug/mIFE U Specimen Type Arterial Sample Site Radial, right ABG pH 7.26 L (7.35-7.45) ABG pCO2 81.2 H* (35-45) mmHg ABG pO2 64.6 L (80.0-100.0) mmH g ABG HCO3 36.6 H (22-26) mmol/L ABG Base Excess 7.4 H (-2.0-2.0) mmol/ L Kulwinder Test Pos Hematocrit 32.5 L (37-47) % Hgb O2 Saturation 84.0 L (95-100) % Carboxyhemoglobin 2.5 (0.4-20.1) %THgb Methemoglobin 0.8 (0.4-1.5) % Total Hemoglobin 10.6 L (12-16) g/dL O2 Delivery Device Nrb O2 Liters/Min 15.0 % FiO2 100.0 % Wire Chief ID Rn Sodium Cancelled Potassium Cancelled Chloride Cancelled Carbon Dioxide Cancelled Anion Gap Cancelled BUN Cancelled Creatinine Cancelled GFR Calculation Cancelled Glucose Cancelled Calculated Osmolal ity Cancelled Lactic Acid (0.5-2.2) mmol/L Calcium Cancelled Total Bilirubin Cancelled AST Cancelled ALT Cancelled Alkaline Phosphata se Cancelled NT-Pro-B Natriuret Pep Cancelled Total Protein Cancelled Albumin Cancelled Globulin Cancelled 07/08/20 07/08/20 07/08/20 Range/Units 17:09 17:09 18:42 WBC (4.0-10.0) 10^3/ uL RBC (4.1-5.3) 10^6/u L Hgb (11.5-15.3) g/dL Hct (37.0-47.0) % MCV (81-99) fL MCH (28.0-34.0) pg MCHC (30.0-36.0) g/dL RDW (12.1-15.1) % Plt Count (130-400) 10^3/c mm MPV (7.4-10.4) fL Neut % (Auto) % Lymph % (Auto) % [place] % (Auto) % Eos % (Auto) % Baso % (Auto) % Neut # (Auto) (1.8-7.7) 10^3/u L Lymph # (Auto) (0.8-4.8) 10^3/u L [place] # (Auto) (0.2-0.9) 10^3/u L Eos # (Auto) (0.0-0.8) 10^3/u L Baso # (Auto) (0.0-0.1) 10^3/u L Nucleated RBC % (a uto) % Nucleated RBCs # /100WBC D-Dimer 2.32 H (0-0.59) ug/mIFE U Specimen Type Sample Site ABG pH (7.35-7.45) ABG pCO2 (35-45) mmHg ABG pO2 (80.0-100.0) mmH g ABG HCO3 (22-26) mmol/L ABG Base Excess (-2.0-2.0) mmol/ L Kulwinder Test Hematocrit (37-47) % Hgb O2 Saturation (95-100) % Carboxyhemoglobin (0.4-20.1) %THgb Methemoglobin (0.4-1.5) % Total Hemoglobin (12-16) g/dL O2 Delivery Device O2 Liters/Min % FiO2 % Wire Chief ID Sodium 142 Potassium 5.8 H Chloride 99 Carbon Dioxide 37 H Anion Gap 11.8 BUN 38 H Creatinine 1.9 H GFR Calculation Not Reportable Glucose 132 H Calculated Osmolal ity 305 H Lactic Acid 2.0 (0.5-2.2) mmol/L Calcium 8.6 Total Bilirubin 1.0 AST 11 ALT 10 Alkaline Phosphata se 128 H NT-Pro-B Natriuret Pep 8772 H Total Protein 7.0 Albumin 3.5 Globulin 3.5 07/08/20 Range/Units 19:50 WBC (4.0-10.0) 10^3/ uL RBC (4.1-5.3) 10^6/u L Hgb (11.5-15.3) g/dL Hct (37.0-47.0) % MCV (81-99) fL MCH (28.0-34.0) pg MCHC (30.0-36.0) g/dL RDW (12.1-15.1) % Plt Count (130-400) 10^3/c mm MPV (7.4-10.4) fL Neut % (Auto) % Lymph % (Auto) % [place] % (Auto) % Eos % (Auto) % Baso % (Auto) % Neut # (Auto) (1.8-7.7) 10^3/u L Lymph # (Auto) (0.8-4.8) 10^3/u L [place] # (Auto) (0.2-0.9) 10^3/u L Eos # (Auto) (0.0-0.8) 10^3/u L Baso # (Auto) (0.0-0.1) 10^3/u L Nucleated RBC % (a uto) % Nucleated RBCs # /100WBC D-Dimer (0-0.59) ug/mIFE U Specimen Type Arterial Sample Site Radial, right ABG pH 7.32 L (7.35-7.45) ABG pCO2 71.7 H* (35-45) mmHg ABG pO2 155.0 H (80.0-100.0) mmH g ABG HCO3 36.8 H (22-26) mmol/L ABG Base Excess 9.0 H (-2.0-2.0) mmol/ L Kulwinder Test Pos Hematocrit 27.5 L (37-47) % Hgb O2 Saturation (95-100) % Carboxyhemoglobin (0.4-20.1) %THgb Methemoglobin (0.4-1.5) % Total Hemoglobin (12-16) g/dL O2 Delivery Device Bipap O2 Liters/Min % FiO2 80.0 % Wire Chief ID ellpe Sodium Potassium Chloride Carbon Dioxide Anion Gap BUN Creatinine GFR Calculation Glucose Calculated Osmolal ity Lactic Acid (0.5-2.2) mmol/L Calcium Total Bilirubin AST ALT Alkaline Phosphata se NT-Pro-B Natriuret Pep Total Protein Albumin Globulin Imaging Data^: CTA Chest: Radiologist's impression: [employer] [address] [address] Scan Report Signed Patient: Krystal Andrews #: [id number] : 4Acct#:[id number] Age/Sex: 74 / FADM Date: 07/08/20 Loc: ERRoom/Bed: Attending Dr: Ordering Provider/Ordering MD: Milka Nieto MD, [facility] Date of Service: 07/08/20 Procedure(s): CT angio chest PE protcl [id number] Accession Number(s): [id number] Report Number: [id number] PROCEDURE INFORMATION: Exam: CT Angiography Chest With Contrast Exam date and time: 07/08/2020 6:43 PM Age: 74 years old Clinical indication: Dyspnea and shortness of breath; Additional info: Hypoxia, sudden onset SOB TECHNIQUE: Imaging protocol: Computed tomographic angiography of the chest with intravenous contrast. 3D rendering (Not supervised by radiologist): MIP and/or 3D reconstructed images were created by the technologist. Radiation optimization: All CT scans at this facility use at least one of these dose optimization techniques: automated exposure control; mA and/or kV adjustment per patient size (includes targeted exams where dose is matched to clinical indication); or iterative reconstruction. Contrast material: VISIPAQUE 320; Contrast volume: 70 ml; Contrast route: INTRAVENOUS (IV); COMPARISON: CTA Thorac/Abd Aor [id number] 06/27/2019 4:53 AM RADIATION DOSE METRICS: Total DLP (mGy-cm): 656.58 FINDINGS: Pulmonary arteries: No pulmonary embolus or aortic dissection. Aorta: Unremarkable. No aortic aneurysm. No aortic dissection. Great vessels off aortic arch: Calcification of the thoracic aorta and/or great vessels consistent with atherosclerotic vessel disease. Lungs: Compressive atelectasis of both lower lobes, lingula and portions of the right middle lobe. Mild right sided pneumonia and or atelectasis. Moderate to severe left-sided pneumonia and or atelectasis and or pulmonary edema with somewhat crowded air bronchograms. Pleural space: Moderate bilateral pleural fluid collections. Heart: Moderate pericardial fluid and/or thickening with cardiomegaly. Severe calcified coronary artery disease. Lymph nodes: Unremarkable. No enlarged lymph nodes. Liver: Continued grossly stable 14.8 cm partially visualized low-density lesion in the left lobe liver with rim calcification. Previously mentioned in CT abdomen pelvis report dated September 26, 2019. Gallbladder and bile ducts: Surgical clips in the gallbladder fossa consistent with cholecystectomy. Bones/joints: Mild thoracic spondylosis. Soft tissues: Unremarkable. CT/CT angio chest PE protcl [id number] IMPRESSION: 1. Moderate bilateral pleural fluid collections. 2. Moderate pericardial fluid and/or thickening with cardiomegaly. 3. Severe calcified coronary artery disease. 4. Compressive atelectasis of both lower lobes, lingula and portions of the right middle lobe. 5. Mild right sided pneumonia and or atelectasis. 6. Moderate to severe left-sided pneumonia and or atelectasis and or pulmonary edema with somewhat crowded air bronchograms. 7. Continued grossly stable 14.8 cm partially visualized low-density lesion in the left lobe liver with rim calcification. Previously mentioned in CT abdomen pelvis report dated September 26, 2019. 8. No pulmonary embolus or aortic dissection. Radiation Dose CTDIVOL = (mGy): DLP = 656.58 (mGy-cm) Dictated By:Robert Miramontes MD Signed By:Robert Miramontes MDSigned Date/Time:07/08/201937 DD/ 34 CXR: Attestation: I personally reviewed and interpreted this imaging study as follows: Radiologist's impression: [address] [address] XRay Report Signed Patient: Krystal Andrews #: [id number] : [id number]#:[id number] Age/Sex: 74 / FADM Date: 07/08/20 Loc: ERRoom/Bed: Attending Dr: Ordering Provider/Ordering MD: Milka Nieto MD, [facility] [facility] Date of Service: 07/08/20 Procedure(s): XR chest 1V portable [id number] Accession Number(s): [id number] Report Number: [id number] PROCEDURE INFORMATION: Exam: XR Chest, 1 View Exam date and time: 07/08/2020 11:03 PM Age: 74 years old Clinical indication: Device placement; Picc; Additional info: Central line placement TECHNIQUE: Imaging protocol: XR of the chest Views: 1 view. COMPARISON: CR XR chest 1V portable [id number] 06/30/2020 2:20 PM FINDINGS: Tubes, catheters and devices: Right-sided internal jugular central venous catheter is in place with tip at junction of superior vena cava and right atrium. Lungs: See below. Pleural space: Bilateral pulmonary opacities likely relate to combination of pleural effusions and parenchymal abnormalities; mild increase through the mid right chest. Heart/Mediastinum: Heart partially obscured but suspected to be enlarged and unchanged. Bones/joints: No acute findings. XR/XR chest 1V portable [id number] IMPRESSION: Right-sided internal jugular central venous catheter is in place with tip at junction of superior vena cava and right atrium. Dictated By:Kee Weeks MD Signed By:Kee Weeks MDSigned Date/Time:07/08/202358 DD/ 56 Echo: Radiologist's impression: [address] [address] Ultrasound Report Signed Patient: Krystal Andrews #: [id number] : [id number]#:[id number] Age/Sex: 74 / FADM Date: 07/08/20 Loc: ERRoom/Bed: Attending Dr: Ordering Provider/Ordering MD: Milka Nieto MD, [facility] Date of Service: 07/08/20 Procedure(s): CV echo limited [id number] Accession Number(s): [id number] Report Number: [id number] Krystal Andrews Age: 74 Gender: F : 1945 Exam Date: 07/08/2020 20:50 Ordering Phys: Milka Nieto MD [facility] [facility] Technologist: Celia Lynne Exam Location: [facility] [place] Indication: pericardial effusion BP: 91 / 53 HR: 109 Rhythm: Other Technical Quality: Suboptimal MEASUREMENTS (Male / Female) Normal Values 2D ECHO LV Diastolic Diameter PLAX 4.2 cm 4.2 - 5.9 / 3.9 - 5.3 cm LV Systolic Diameter PLAX 3.1 cm IVS Diastolic Thickness 1.1 cm 0.6 - 1.0 / 0.6 - 0.9 cm IVS Systolic Thickness 2.0 cm LVPW Diastolic Thickness 0.9 cm 0.6 - 1.0 / 0.6 - 0.9 cm LVPW Systolic Thickness 1.4 cm LVOT Diameter 2.0 cm LV Ejection Fraction 2D Teich 51.6 % LV Ejection Fraction MOD 2C 79.8 % LV Ejection Fraction 2C AL 85.4 % LA Diameter 4.9 cm LA Width 3.5 cm LA Height 6.1 cm RA Width 4.1 cm RA Height 6.4 cm M-MODE LV Diastolic Diameter MM 3.9 cm 4.2 - 5.9 / 3.9 - 5.3 cm LV Systolic Diameter MM 2.1 cm LV Ejection Fraction MM Teich 78.7 % IVS Diastolic Thickness MM 1.4 cm 0.6 - 1.0 / 0.6 - 0.9 cm IVS Systolic Thickness MM 1.7 cm LVPW Diastolic Thickness MM 0.9 cm 0.6 - 1.0 / 0.6 - 0.9 cm LVPW Systolic Thickness MM 1.8 cm Aortic Annulus Diameter 3.7 cm LA Ao Ratio MM 1.3 MV E Point Septal Separation 0.7 cm DOPPLER TR Peak Velocity 327.0 cm/s TR Peak Gradient 42.8 mmHg Right Atrial Pressure 3.0 mmHg Pulmonary Artery Systolic Pressu 45.8 mmHg FINDINGS Left Ventricle Small left ventricular cavity size. Normal left ventricular systolic function. Left ventricular ejection fraction is estimated at 55%. Flattened septum in diastole consistent with right ventricle volume overload. Right Ventricle Moderately increased right ventricular size. Moderately decreased right ventricular systolic function. Moderate pulmonary hypertension, RVSP 50 mmHg. Right Atrium Severely increased right atrial size. Left Atrium Moderately increased left atrial size. Mitral Valve Moderately thickened mitral valve. Moderate mitral annular calcification. No mitral valve stenosis. Trace mitral valve regurgitation. Aortic Valve Severe aortic valve calcification. Moderate to severe aortic valve stenosis, due to lack of Doppler velocities aortic valve area was not calculated Tricuspid Valve Severe tricuspid valve regurgitation. Pulmonic Valve Structurally normal pulmonic valve without significant stenosis. There is no pulmonic regurgitation. Pericardium Small pericardial effusion. Pleural effusion noted. No tamponade physiology. Aorta Normal ascending aorta dimension. CONCLUSIONS 1-Small left ventricular cavity size. Normal left ventricular systolic function. Left ventricular ejection fraction is estimated at 55%. Flattened septum in diastole consistent with right ventricle volume overload. 2-Severe aortic valve calcification. Moderate to severe aortic valve stenosis, due to lack of Doppler velocities aortic valve area was not calculated. 3-Severe tricuspid valve regurgitation. 4-Moderately increased right ventricular size. Moderately decreased right ventricular systolic function. Moderate pulmonary hypertension, RVSP 50 mmHg. 5-Moderately thickened mitral valve. Moderate mitral annular calcification. No mitral valve stenosis. Trace mitral valve regurgitation. 6-Small pericardial effusion. Pleural effusion noted. No tamponade physiology. 7-When compared to the prior echocardiogram dated 06/18/2020, pericardial effusion has improved from moderate to small now. There is no tamponade physiology. There is moderate pulmonary hypertension with pulmonary artery pressure of 50 mmHg which may not have calculated previously due to lack of TR jet . Shruti Ureña MD (Electronically Signed) Final Date: 08 July 2020 21:38 S EKG Data^: EKG 1: Attestation: I personally reviewed and interpreted this EKG as follows: EKG Interpretation Date: 07/08/20 EKG interpretation time: 16:52 Prior EKG tracings: not available for review Interpretation: A. fib with rapid ventricular rhythm. Heart rate 103 bpm. Right bundle branch block. Q wave in V1. Critical Care Time Critical Care Time: Critical Care Time: Yes Total Critical Care Time: 90 Attestation: This case had a high probability of a clinically significant, sudden, or life threatening deterioration of this patient's condition which required my full and direct attention, intervention and personal management. Discharge Plan Discharge Patient Disposition: Xfer Short-Term Hosp Clinical Impression: Pulmonary hypertension, Pleural effusion, Pericardial effusion Acute respiratory failure Qualifiers: Respiratory failure complication: hypoxia and hypercapnia Qualified Code(s): J96.01 - Acute respiratory failure with hypoxia Aortic stenosis Qualifiers: Cardiac valve disease etiology: etiology unspecified Qualified Code(s): I35.0 - Nonrheumatic aortic (valve) stenosis Condition: Stable Discharge Orders: Transfer Out of Facility (Order); Ordered 07/09/20 Ordered By: Milka Nieto Referrals: Kristian Rincon DO [Primary Care Provider] - Coding Level of Care Code ED Poem Writer for Chg Fwd Exam Detailed
[2020-07-08 17:55] LABS: ABG PCO2 81.2 mmHg (35-45)
[2020-07-08] MEDS: ondansetron 2 mg/ML SDV 2 mL 4 MG IVP (18:02)
[2020-07-08] MEDS: morphine 4 mg/mL SDV 1 mL IVP (18:03)
[2020-07-08 18:48] LABS: D Dimer 2.32 ug/mIFEU (0-0.59)
[2020-07-08] MEDS: iodixanol 320 mg/mL 100mL Btl IV (18:59)
--- NOTE | 2020-07-08 19:07 | PC.NURSE ---
Report taken from Alfreda ZARAGOZA and care transferred to Radha ZARAGOZA
[2020-07-08 19:27] LABS: Alanine Aminotransferase 10 U/L (0-33); Albumin Level 3.5 g/dL (3.5-5.2); Alkaline Phosphatase 128 IU/L (35-105); Anion Gap 11.8 (5-19); Aspartate Amino Transferase 11 U/L (0-32); Blood Urea Nitrogen 38 mg/dL (8-23); Calcium 8.6 mg/dL (8.5-10.5); Carbon Dioxide 37 mmol/L (22-29); Chloride 99 mmol/L (98-107); Globulin 3.5 g/dL (1.3-4.6); Glucose 132 mg/dL (65-115); NT Pro B Type Natriuretic Pept 8772 pg/mL (0-450); Osmolality Calculated 305 mOsm/kg (285-295); Potassium 5.8 mmol/L (3.5-5.1); Sodium 142 mmol/L (136-145)
[2020-07-08] MEDS: cefepime 2,000 MG in sodium chloride 0.9% (plus) 50 ML 100 MG IV (19:37)
[2020-07-08 20:01] LABS: ABG PH Result 7.32 (7.35-7.45); Arterial Blood Gas Hematocrit 27.5 % (37-47); Blood Gas Allen Test Pos; Blood Gas Sample Site Radial, right; Blood Gas Sample Type Arterial; HCO3 ABG 36.8 mmol/L (22-26); Oxygen Device BIPAP
[2020-07-08 20:02] LABS: ABG PCO2 71.7 mmHg (35-45)
--- NOTE | 2020-07-08 20:11 | USCV_ITS ---
Krystal Andrews Age: 74 Gender: F : 1945 Exam Date: 07/08/2020 20:50 Ordering Phys: Milka Nieto MD [facility] [place] Technologist: Celia Lynne Exam Location: [facility] [place] Indication: pericardial effusion BP: 91 / 53 HR: 109 Rhythm: Other Technical Quality: Suboptimal MEASUREMENTS (Male / Female) Normal Values 2D ECHO LV Diastolic Diameter PLAX 4.2 cm 4.2 - 5.9 / 3.9 - 5.3 cm LV Systolic Diameter PLAX 3.1 cm IVS Diastolic Thickness 1.1 cm 0.6 - 1.0 / 0.6 - 0.9 cm IVS Systolic Thickness 2.0 cm LVPW Diastolic Thickness 0.9 cm 0.6 - 1.0 / 0.6 - 0.9 cm LVPW Systolic Thickness 1.4 cm LVOT Diameter 2.0 cm LV Ejection Fraction 2D Teich 51.6 % LV Ejection Fraction MOD 2C 79.8 % LV Ejection Fraction 2C AL 85.4 % LA Diameter 4.9 cm LA Width 3.5 cm LA Height 6.1 cm RA Width 4.1 cm RA Height 6.4 cm M-MODE LV Diastolic Diameter MM 3.9 cm 4.2 - 5.9 / 3.9 - 5.3 cm LV Systolic Diameter MM 2.1 cm LV Ejection Fraction MM Teich 78.7 % IVS Diastolic Thickness MM 1.4 cm 0.6 - 1.0 / 0.6 - 0.9 cm IVS Systolic Thickness MM 1.7 cm LVPW Diastolic Thickness MM 0.9 cm 0.6 - 1.0 / 0.6 - 0.9 cm LVPW Systolic Thickness MM 1.8 cm Aortic Annulus Diameter 3.7 cm LA Ao Ratio MM 1.3 MV E Point Septal Separation 0.7 cm DOPPLER TR Peak Velocity 327.0 cm/s TR Peak Gradient 42.8 mmHg Right Atrial Pressure 3.0 mmHg Pulmonary Artery Systolic Pressu 45.8 mmHg FINDINGS Left Ventricle Small left ventricular cavity size. Normal left ventricular systolic function. Left ventricular ejection fraction is estimated at 55%. Flattened septum in diastole consistent with right ventricle volume overload. Right Ventricle Moderately increased right ventricular size. Moderately decreased right ventricular systolic function. Moderate pulmonary hypertension, RVSP 50 mmHg. Right Atrium Severely increased right atrial size. Left Atrium Moderately increased left atrial size. Mitral Valve Moderately thickened mitral valve. Moderate mitral annular calcification. No mitral valve stenosis. Trace mitral valve regurgitation. Aortic Valve Severe aortic valve calcification. Moderate to severe aortic valve stenosis, due to lack of Doppler velocities aortic valve area was not calculated Tricuspid Valve Severe tricuspid valve regurgitation. Pulmonic Valve Structurally normal pulmonic valve without significant stenosis. There is no pulmonic regurgitation. Pericardium Small pericardial effusion. Pleural effusion noted. No tamponade physiology. Aorta Normal ascending aorta dimension. CONCLUSIONS 1-Small left ventricular cavity size. Normal left ventricular systolic function. Left ventricular ejection fraction is estimated at 55%. Flattened septum in diastole consistent with right ventricle volume overload. 2-Severe aortic valve calcification. Moderate to severe aortic valve stenosis, due to lack of Doppler velocities aortic valve area was not calculated. 3-Severe tricuspid valve regurgitation. 4-Moderately increased right ventricular size. Moderately decreased right ventricular systolic function. Moderate pulmonary hypertension, RVSP 50 mmHg. 5-Moderately thickened mitral valve. Moderate mitral annular calcification. No mitral valve stenosis. Trace mitral valve regurgitation. 6-Small pericardial effusion. Pleural effusion noted. No tamponade physiology. 7-When compared to the prior echocardiogram dated 06/18/2020, pericardial effusion has improved from moderate to small now. There is no tamponade physiology. There is moderate pulmonary hypertension with pulmonary artery pressure of 50 mmHg which may not have calculated previously due to lack of TR jet . Shruti Ureña MD (Electronically Signed) Final Date: 08 July 2020 21:38 S
--- NOTE | 2020-07-08 22:55 | XRR_ITS ---
PROCEDURE INFORMATION: Exam: XR Chest, 1 View Exam date and time: 07/08/2020 11:03 PM Age: 74 years old Clinical indication: Device placement; Picc; Additional info: Central line placement TECHNIQUE: Imaging protocol: XR of the chest Views: 1 view. COMPARISON: CR XR chest 1V portable [id number] 06/30/2020 2:20 PM FINDINGS: Tubes, catheters and devices: Right-sided internal jugular central venous catheter is in place with tip at junction of superior vena cava and right atrium. Lungs: See below. Pleural space: Bilateral pulmonary opacities likely relate to combination of pleural effusions and parenchymal abnormalities; mild increase through the mid right chest. Heart/Mediastinum: Heart partially obscured but suspected to be enlarged and unchanged. Bones/joints: No acute findings. XR/XR chest 1V portable [id number] IMPRESSION: Right-sided internal jugular central venous catheter is in place with tip at junction of superior vena cava and right atrium.
--- NOTE | 2020-07-08 23:29 | PC.NURSE ---
Report called to Radha Luther RN at [facility] at [phone]
--- NOTE | 2020-07-08 23:30 | PC.NURSE ---
Bedside report given to [employer] crew and patient left [facility] at [phone]
== END 2020-07-08 23:44 | disposition short-term general hospital (02) ==
PROVIDERS: Emergency Provider Family Medicine; PCP Electrodiagnostic Medicine
DX: J96.01 Acute respiratory failure with hypoxia (principal); I35.0 Nonrheumatic aortic (valve) stenosis; I31.3 Pericardial effusion (noninflammatory); J90 Pleural effusion, not elsewhere classified; I27.20 Pulmonary hypertension, unspecified; I48.91 Unspecified atrial fibrillation; I12.9 Hypertensive chronic kidney disease with stage 1 through stage 4 chronic kidney disease, or unspecified chronic kidney disease; N18.2 Chronic kidney disease, stage 2 (mild); Z86.73 Personal history of transient ischemic attack (TIA), and cerebral infarction without residual deficits; E78.5 Hyperlipidemia, unspecified; Z86.19 Personal history of other infectious and parasitic diseases
CPT/HCPCS: 12345; 36556; 36600; 51702; 71045; 71275; 80053; 82803; 82805; 83605; 83880; 85025; 85378; 93005; 93308; 94660; 96365; 96366; 96367; 96375; 99283; 99291; C1751; J0692; J2270; J2405; Q9967